=== PATIENT | female | born 1950 | race Caucasian/White ===

== ENCOUNTER 2016-10-29 17:37 | Inpatient (IN) | payer MEDICARE, OTHER ==
--- OUTSIDE RECORDS SUMMARY | 2016-10-29 17:40 | XMS | Clinical Summary ---
:1950 Author Organization [facility] Address [address] [place] [address] Phone Care Team Providers Name Role Phone , Primary Care Provider Unavailable Allergies Not on File Current Medications Not on file Active Problems Not on file Social History Tobacco Use Types Packs/Day Years Used Date Never Assessed Sex Assigned at Date Recorded Not on file Last Filed Vital Signs Not on file Plan of Treatment Not on file Results Not on filefrom Last 3 Months
[2016-10-29] MEDS ORDERED: Bisacodyl 10 MG SUPP PR PRN (18:27)
[2016-10-29] MEDS ORDERED: Insulin Regular 300 UNITS/3 ML VIAL SC PRN (18:27)
[2016-10-29] MEDS ORDERED: Fleet Enema 133 ML BOT PR PRN (18:27)
[2016-10-29] MEDS ORDERED: Dextrose 50% Abboject 50 ML SYRINGE SLOW IVP PRN (18:27)
[2016-10-29] MEDS ORDERED: Milk Of Magnesia 30 ML UDCUP PO PRN (18:27)
[2016-10-29] MEDS ORDERED: Dextrose 5% in Water 1,000 ML IV SCH (18:30)
[2016-10-29] MEDS ORDERED: Docusate 100 MG CAP PO SCH (21:00)
[2016-10-29] MEDS ORDERED: Clindamycin/D5W 900 MG in Premix Bag 1 BAG IVPB SCH (22:00)
[2016-10-29] MEDS ORDERED: diphenhydrAMINE HCl 50 MG/ML 1 ML VIAL IVP PRN (22:43)
[2016-10-29] MEDS ORDERED: Carvedilol 3.125 MG TAB PO SCH (22:45)
[2016-10-29] MEDS ORDERED: Zolpidem Tartrate 5 MG TAB PO SCH (22:45)
[2016-10-29] MEDS ORDERED: Pravastatin Sodium 20 MG TAB PO SCH (22:45)
[2016-10-29 23:36] VITALS: BMI 24.7
[2016-10-30] MEDS: Sodium Chloride 0.9% 1,000 ML IV SCH ×2 (01:04→20:28)
[2016-10-30 04:02] LABS: Bilirubin Negative (Negative); Blood, Urine Large (Negative); Glucose, Urine (Dipstick) Negative (Negative); Ketone, Urine Negative (Negative); Nitrite Negative (Negative); Protein, Urine (Dipstick) 300 mg/dL (Neg-Trace); Urobilinogen 0.2 mg/dL (0.2-1.0)
[2016-10-30 04:05] LABS: Bacteria/HPF 4+ HPF (None Seen); RBC/HPF GREATER THAN 50-TNTC HPF (0-3)
[2016-10-30 04:35] LABS: Hyaline Casts/LPF NONE SEEN LPF (0-3 Hyaline)
--- NOTE | 2016-10-30 04:38 | CON ---
DATE OF CONSULTATION: 10/29/2016 CHIEF COMPLAINT: Right hip pain. HISTORY OF PRESENT ILLNESS: Ms. Rodriguez is a 66-year-old female who was taking her great aunt to lunch today. She lost her balance near her car. She fell on the street on concrete. She had imme diate pain. She was unable to ambulate. She was taken to the Emergency Department by EMS. She was found to have a right femoral neck fracture. She was transferred for further orthopedic care. She has been in pain, but is currently resting comfortably. She has been admitted to the hospital now. She has received pain medications. She is improving. She denies other injuries. Of note, she wiggins d a distal femur fracture treated operatively in 11/2015. This healed without incident she reports. She did stay in a usp after her last injury. PAST MEDICAL HISTORY: Includes end-stage renal disease on dialysis, history of cardiac disease with recent ablation by cardiac catheterization, hypertension, hyperlipidemia, and history of tachycardi a. PAST SURGICAL HISTORY: Cardiac catheterization, previous right distal femur fracture, open reductio n and internal fixation. ALLERGIES: ATORVASTATIN, CALCIUM, CEFUROXIME, MEPERIDINE, NITROFURANTOIN, and SIMVASTATIN. REVIEW OF SYSTEMS: Positive for right hip pain, otherwise denies chest pain, shortness of breath, n auseous, vomiting, fever, chills and others on the review of systems. FAMILY MEDICAL HISTORY: Noncontributory. SOCIAL HISTORY: The patient denies tobacco, alcohol, or drug use. She lives in [place] with family . PHYSICAL EXAMINATION: VITAL SIGNS: Stable. The patient is afebrile and normotensive, 98% on room air. GENERAL: She is alert, lying supine in no apparent distress. RESPIRATORY: Breathing comfortably. HEENT: Normocephalic, atraumatic. ABDOMEN: Soft, nontender, and nondistended. MUSCULOSKELETAL: The patient's right hip demonstrates pain with motion. She is in a shortened and externally rotated posture. She has well healed lateral scar distally over the leg. There is some minor swelling. No ecchymosis. She is able to flex and extend the foot and ankle and has a palpabl e dorsalis pedis pulse. IMAGES: Current x-rays are pending. She does come with a report which demonstrates femoral neck fr acture. The patient has a history of distal femur fracture and does have a long lateral femoral natalia te in place. LABORATORY DATA: Laboratory studies are currently pending. IMPRESSION: Right femoral neck fracture, acute. PLAN: At this point, I think the patient would benefit from hemiarthroplasty of the hip. We will p barbara for removal of the patient's proximal screws in her femoral plate to allow access to the intrame dullary canal. This will allow us to perform hemiarthroplasty of the hip. She will be allowed to w eight bear early with the goal of early mobilization and prevention of complications of prolonged be d rest as well as to provide pain relief. The patient is aware of risks of surgery. She is at high risk given her heart disease and dialysis. She wants to proceed. She has an ureterostomy as well which puts her at a higher risk of infection. She will be n.p.o. at midnight. She will have approp riate preoperative antibiotics and pain control. She will have medical optimization prior to surger y.
[2016-10-30 05:30] LABS: #Basophils 0.1 thou/uL (0.0-0.2); #Eosinphils 0.2 thou/uL (0.0-0.7); #Lymphocytes 2.4 thou/uL (1.20-3.40); #Monocytes 0.7 thou/uL (0.11-0.59); #Neutrophils 4.6 thou/uL (1.40-6.50); %Basophils 0.7 % (0.0-1.0); %Eosinophils 2.8 % (0.0-10.0); %Lymphocytes 29.7 % (21.0-51.0); %Monocytes 8.9 % (0.0-10.0); Hematocrit 24.3 % (36.0-47.0); PTT 28.4 SEC (22.9-36.1); Prothrombin Time 13.5 SEC (12.0-14.7); Red Blood Cell (RBC) Count 2.42 mill/uL (4.20-5.40)
[2016-10-30 05:46] LABS: Anion Gap 21 mmol/L (10-20); BUN (Urea Nitrogen) 57 mg/dL (9.8-20.1); Calc. Creatinine Clearance 8 mL/min (70-130); Calcium 8.4 mg/dL (7.8-10.44); Carbon Dioxide 26 mmol/L (23-31); Chloride 94 mmol/L (98-107); Estimated GFR-MDRD 6; Phosphorus 6.2 mg/dL (2.3-4.7)
--- NOTE | 2016-10-30 05:54 | HP ---
ATTENDING PHYSICIAN: Dr. Courtney. CONSULTING PHYSICIAN: Dr. Herron for Orthopedics DATE OF ADMISSION: 10/29/2016 CHIEF COMPLAINT: Evaluation status post hip pain and fall. HISTORY OF PRESENT ILLNESS: This is a 66-year-old female who fell from standing on asphalt with obv ious deformity of the right hip, unable to ambulate. On arrival, EMS stated the leg was internally rotated and shortened . She was converted to [place] because the blood pressure was systolic 8 0-90 and unable to acquire vascular access. At [facility], the patient was noted to have a femoral neck fracture. CBC showed hemoglobin 10.4, hematocrit 32, and an EKG without any acute ischemic tone nges. She was then transferred here by request from the patient. She denied any dizziness, chest p ain or shortness of breath prior to the fall. PAST MEDICAL HISTORY: Includes breast cancer, vertigo, CAD, arrhythmia, end-stage renal disease, GE RD. She is on hemodialysis. PAST SURGICAL HISTORY: Left hand dialysis, right mastectomy, coronary artery bypass graft 2 vessels . PSYCHIATRIC HISTORY: Includes anxiety and depression. SOCIAL HISTORY: She denies any alcohol, drug or smoking history. PHYSICAL EXAMINATION: VITAL SIGNS: Currently, blood pressure 102/60, heart rate 114, respiratory rate of 18, temperature 98.6, 96% on room air. HEENT: Atraumatic, normocephalic. No acute distress. Pupils are 3 mm bilaterally equal, round, re act to light. ENT: No JVD, no masses, membranes are fine. CARDIOVASCULAR: S1, S2, regular rate and rhythm. RESPIRATORY: Clear bilaterally. ABDOMEN: Soft, nontender, nondistended. BACK: Unremarkable. EXTREMITIES: Upper extremities are unremarkable. Lower extremities has deformity to internal rotat ion and shortening of the right hip. NEUROLOGIC: GCS 15. LABORATORY DATA: Laboratory values are pending. RADIOLOGIC FINDINGS: Femoral neck fracture on the right. A chest x-ray is pending. ASSESSMENT AND PLAN: A 66-year-old female with status post fall with a right femoral neck fracture with multiple medical problems. We will obtain consult from Nephrology with Dr. Rucker to handle her d ialysis, also Dr. Herron for Orthopedics consultation for operative fixation, as well as optimize her medically with her pain regimen and restart home meds. The patient has been discussed with Dr. Courtney at the time of dictation, agrees with the above plan.
[2016-10-30] MEDS ORDERED: Fentanyl 100 MCG/2 ML VIAL SLOW IVP SCH (06:00)
--- NOTE | 2016-10-30 08:38 | RAD ---
CHEST ONE VIEW: History: Pre op. Comparison: 03-05-14, 09-26-16 FINDINGS: Cardiac silhouette is magnified by projection. Pulmonary vasculature is unremarkable. Mediastinum is midline with post-operative changes and aortic calcification. No lobar consolidation or pleural flu id are evident. Metallic clips overlie the right axilla and the left hilum. IMPRESSION: No active cardiopulmonary abnormalities are demonstrated. POS: DANTE
--- NOTE | 2016-10-30 08:43 | RAD ---
RIGHT HIP TWO VIEWS: History: 66-year-old female with right hip deformity and pain. FINDINGS: There is a severely displaced irregular fracture through the base of the femoral neck with foreshort ening and considerable varus deformity. There is some associated comminution in the intertrochanteri c region. There is a large metal plate and screw stabilizing the proximal femoral shaft. Diffuse bony deminera lization. IMPRESSION: Markedly displaced comminuted fracture involving the base of the femoral neck and intertrochanteric region with marked varus deformity and foreshortening. Severe bone demineralization. POS: JOY
[2016-10-30] MEDS ORDERED: Cinacalcet HCl 30 MG TAB PO SCH (09:00)
[2016-10-30] MEDS ORDERED: Escitalopram Oxalate 20 mg Tablet PO SCH (09:00)
[2016-10-30] MEDS ORDERED: Docusate 100 MG CAP PO SCH (09:00)
[2016-10-30] MEDS ORDERED: Aspirin 81 mg Enteric Coated Tablet PO SCH (09:00)
--- NOTE | 2016-10-30 09:01 | PRG ---
DATE OF SERVICE: 10/30/2016 SERVICE: Renal Medicine. SUBJECTIVE: Ms. Rodriguez is a 66-year-old white female with known history of ESRD - on maintenanc e hemodialysis and admitted for right hip fracture. I am currently dialyzing her without any hepari n. I am at her bedside supervising the dialysis. For now, being consulted for her maintenance hemodialysis. OBJECTIVE: VITAL SIGNS: Blood pressure 90/54, heart rate 97, respiratory rate 17, temperature 97.4, pulse ox 9 6%. GENERAL: Awake, alert, supine, comfortable, not in distress. SKIN: Adequate turgor. HEENT: Slightly pale conjunctivae, anicteric sclerae. NECK: No neck mass, no carotid bruits, no JVD. CHEST: No deformities. LUNGS: Clear breath sounds. No wheezing, no crackles. HEART: Normal sinus rhythm. No murmur, no gallops or rubs. ABDOMEN: Globular, soft, nontender, no masses. Positive for a urostomy bag. EXTREMITIES: No edema, no deformities. Limited range of motion of the right hip joint. NEUROLOGIC: Awake, oriented to 3 spheres. Moving all extremities. No tremors, no asterixis, no at axia. MEDICATIONS: Of 10/30/2016 was reviewed. LABORATORY DATA: Of 10/30/2016, white count 8, hemoglobin 8.0, hematocrit 24.3. Sodium 136, potass ium 4.7, chloride 94, carbon dioxide 26, BUN 57, creatinine 7.12, phosphorus is 6.2, calcium 8.4, ma gnesium 2.0. ASSESSMENT AND PLAN: 1. End-stage renal disease, stable. We will continue current hemodialysis regimen. No heparin to be used due to the planned hip surgery. 2. Right hip fracture - Surgery is following, patient will have a right hip surgery this afternoon. 3. Hyperphosphatemia, resume PhosLo 667 mg 1 tablet t.i.d. with meals. 4. Anemia. We will start Epogen 10,000 units subcutaneously every week. Overall, I agree with current management, recheck basic metabolic panel and CBC in a.m.
[2016-10-30] MEDS: Ondansetron ODT 4 MG TAB PO PRN (09:54)
[2016-10-30] MEDS: Morphine Sulfate 2 MG/ML SYRINGE SLOW IVP PRN ×2 (09:55→14:10)
[2016-10-30] MEDS: Docusate 100 MG CAP PO SCH (10:36)
[2016-10-30] MEDS: Carvedilol 3.125 MG TAB PO SCH ×2 (10:36→20:30)
[2016-10-30] MEDS: Cinacalcet HCl 30 MG TAB PO SCH (10:36)
[2016-10-30] MEDS: Escitalopram Oxalate 20 mg Tablet PO SCH (10:37)
[2016-10-30] MEDS: Midodrine HCl 5 MG TAB PO SCH (10:37)
[2016-10-30] MEDS: Epoetin (ESRD) 20,000 UNITS/ML SC SCH (10:37)
[2016-10-30] MEDS: Calcium Acetate 667 MG CAP PO SCH ×2 (13:12→20:27)
[2016-10-30] MEDS ORDERED: Clindamycin/D5W 900 mg/50 ml Premix Bag ONE (16:09)
[2016-10-30] MEDS ORDERED: Fentanyl 250 MCG/5 ML VIAL ONE (17:23)
[2016-10-30] MEDS ORDERED: Propofol 200 MG/20 ML VIAL ONE (17:27)
[2016-10-30] MEDS ORDERED: PHENYLEPHRINE-NS 100 MCG/ML 10 ML SYRINGE ONE (17:27)
[2016-10-30] MEDS ORDERED: ePHEDrine/0.9% NaCl/PF SYRINGE 50 mg/10 ml ONE (17:27)
[2016-10-30] MEDS ORDERED: Lidocaine 1% PF 5 ML VIAL ONE (17:27)
[2016-10-30] MEDS ORDERED: Albumin 5% 500 ML ONE (17:32)
[2016-10-30] MEDS ORDERED: EPINEPHrine 1 MG/10 ML Abboject SYRINGE ONE (17:34)
[2016-10-30] MEDS ORDERED: SUGAMMADEX SODIUM 500 MG/5 ML VIAL ONE (17:50)
[2016-10-30] MEDS ORDERED: Acetaminophen 500 MG TAB PO SCH (19:00)
[2016-10-30 19:40] LABS: #Eosinphils 0.1 thou/uL (0.0-0.7); #Lymphocytes 1.7 thou/uL (1.20-3.40); #Monocytes 0.6 thou/uL (0.11-0.59); #Neutrophils 4.2 thou/uL (1.40-6.50); %Basophils 0.6 % (0.0-1.0); %Eosinophils 1.8 % (0.0-10.0); %Lymphocytes 25.6 % (21.0-51.0); %Monocytes 8.4 % (0.0-10.0); Hematocrit 22.5 % (36.0-47.0); Mean Platelet Volume 7.7 fL (7.4-10.4); Red Blood Cell (RBC) Count 2.24 mill/uL (4.20-5.40); White Blood Cell (WBC) Count 6.6 thou/uL (4.8-10.8)
[2016-10-30 20:14] LABS: Anion Gap 17 mmol/L (10-20); BUN (Urea Nitrogen) 21 mg/dL (9.8-20.1); Calc. Creatinine Clearance 15 mL/min (70-130); Calcium 8.6 mg/dL (7.8-10.44); Carbon Dioxide 28 mmol/L (23-31); Chloride 100 mmol/L (98-107); Estimated GFR-MDRD 12; Magnesium 2.1 mg/dL (1.6-2.6); Phosphorus 4.6 mg/dL (2.3-4.7)
--- NOTE | 2016-10-30 20:32 | RAD ---
PORTABLE CHEST 10/30/16 PROVIDED CLINICAL HISTORY: Central line placement. FINDINGS: Comparison 10/30/16, 4:28 a.m. Cardiac and mediastinal silhouette is unchanged in appearance. Median sternotomy changes are again n oted. Left IJ central line has been placed, the tip of which projects over the expected location of the right atrium. Chronic obstructive changes are redemonstrated. No focal consolidation, pleural fl uid, or pneumothorax definitely apparent. IMPRESSION: Post central line placement without evidence for complication. POS: JOY
[2016-10-30] MEDS ORDERED: Pravastatin Sodium 20 MG TAB PO SCH ×2 (21:00)
[2016-10-30] MEDS: Simvastatin 5 MG TAB PO SCH (21:58)
[2016-10-30] MEDS: Fentanyl 100 MCG/2 ML VIAL SLOW IVP PRN (23:41)
[2016-10-30] MEDS: Clindamycin/D5W 900 MG in Premix Bag 1 BAG IVPB SCH (23:41)
[2016-10-30] MEDS: Norepinephrine 8 MG/250 ML BAG IVPB PRN (23:45)
[2016-10-31] MEDS: Zolpidem Tartrate 5 MG TAB PO SCH (02:24)
[2016-10-31 04:49] LABS: Anion Gap 16 mmol/L (10-20); BUN (Urea Nitrogen) 28 mg/dL (9.8-20.1); Calc. Creatinine Clearance 12 mL/min (70-130); Calcium 8.4 mg/dL (7.8-10.44); Carbon Dioxide 27 mmol/L (23-31); Chloride 101 mmol/L (98-107); Estimated GFR-MDRD 10; Magnesium 1.9 mg/dL (1.6-2.6); Phosphorus 5.3 mg/dL (2.3-4.7)
[2016-10-31 04:51] LABS: #Eosinphils 0.2 thou/uL (0.0-0.7); #Lymphocytes 2.3 thou/uL (1.20-3.40); #Monocytes 0.8 thou/uL (0.11-0.59); #Neutrophils 4.3 thou/uL (1.40-6.50); %Basophils 0.6 % (0.0-1.0); %Lymphocytes 29.3 % (21.0-51.0); %Monocytes 10.6 % (0.0-10.0); Hematocrit 20.3 % (36.0-47.0); Mean Platelet Volume 7.8 fL (7.4-10.4); White Blood Cell (WBC) Count 7.7 thou/uL (4.8-10.8)
[2016-10-31] MEDS: Sodium Chloride 0.9% 1,000 ML IV SCH (10:00)
[2016-10-31] MEDS: Docusate 100 MG CAP PO SCH (10:01)
[2016-10-31] MEDS: Clindamycin/D5W 900 MG in Premix Bag 1 BAG IVPB SCH (10:01)
[2016-10-31] MEDS: Calcium Acetate 667 MG CAP PO SCH ×3 (10:01→17:43)
[2016-10-31] MEDS: Cinacalcet HCl 30 MG TAB PO SCH (10:01)
[2016-10-31] MEDS: Escitalopram Oxalate 20 mg Tablet PO SCH (10:02)
[2016-10-31] MEDS: Fentanyl 100 MCG/2 ML VIAL SLOW IVP PRN ×3 (10:07→22:33)
--- NOTE | 2016-10-31 10:32 | PRG ---
DATE OF SERVICE: 10/31/2016 SUBJECTIVE: Ms. Rodriguez is a 66-year-old white female with ESRD and admitted for right hip fract ure. She was supposed to be scheduled yesterday for right hip surgery, but she became hypotensive. She is now placed at the ICU for further monitoring. She also was noted to be anemic and currently receiving blood transfusion. She has also been started on her regular weekly Epogen. The patient voices no new complaints. PHYSICAL EXAMINATION: VITAL SIGNS: Blood pressure is 96/44, heart rate 90, respiratory rate 20, temperature 99.2, pulse o x is 96%. GENERAL: Noted to be awake, supine, comfortable, not in distress. SKIN: Adequate turgor. HEENT: Pale conjunctivae, anicteric sclerae. NECK: No neck mass, no carotid bruits, no JVD. CHEST: No deformities. LUNGS: Clear breath sounds. No wheezing, no crackles. HEART: Normal sinus rhythm. No murmurs, gallops or rubs. ABDOMEN: Globular, soft, nontender. Positive for urostomy. EXTREMITIES: No edema. MEDICATIONS: 10/31/2016 - Reviewed. LABORATORY: 10/31/2016 - White count 7.7, hemoglobin 6.7, sodium 140, potassium 3.6, chloride 101, carbon dioxide 27, BUN 28, creatinine 4.46, glucose 125, calcium 8.4, phosphorus 5.3. Cortisol 28.6 . ASSESSMENT AND PLAN: 1. Hypotension. This may be a hemodynamically mediated renal dysfunction. The patient did receive dialysis and fluid removal was done. I will probably continue midodrine with this patient. Contin ue p.r.n. replacement of fluid. I agree to optimize hemodynamics. Currently receiving blood transf usion. 2. Anemia - currently receiving 1-2 units of packed RBC. Currently on weekly Epogen. 3. Right hip fracture for planned surgery in a.m. I would suggest we do the surgery first thing in the morning and we will work our dialysis schedule around the surgery. Overall, prognosis remains guarded.
--- NOTE | 2016-10-31 10:45 | PRG ---
DATE OF SERVICE: 10/31/2016 SUBJECTIVE: The patient is a 66-year-old woman who is status post fall with fracture of the right hip. Attempted trip to the operating room yesterday was aborted as the patient became hypotensive post-induction. Note that the patient underwent a preoperative dialysis with loss of over 2 liters of fluids. Overnight, the patient has remained hypotensive, currently on norepinephrine 7.5 mcg per minute. She is otherwise awake and alert. She reports adequate pain control. OBJECTIVE: VITAL SIGNS: This morning includes blood pressure 104/48, pulse is 110, respiration 23, temperature 99.2 degrees Fahrenheit, oxygen saturation is 98% on 2 L by nasal cannula oxygen. HEENT EXAMINATION: Reveals normocephalic and atraumatic. The pupils are equal , round, reactive to light and accommodation. HEART: Reveals regular rate with sinus tachycardia. No murmurs or gallops auscultated. LUNGS: Clear to auscultation bilaterally. Her breathing is regular and unlabored. ABDOMEN: Soft, nontender, nondistended. Bowel sounds in all four quadrants appear normoactive. Liver and spleen are nonpalpable below costal margins. NEUROLOGIC: Reveals no focal deficits present. EXTREMITIES: There are 2+ radial and pedal pulses bilaterally. No ankle edema is present. PERTINENT LABORATORY DATA: Today includes CBC with 7700 white blood cells, hemoglobin 6.7, hematocrit 20.3, and platelet count is 191,000. Metabolic profile; sodium 140, potassium 3.6, chloride is 101, bicarbonate 27, BUN 28, creatinine is 4.46, which is baseline. Magnesium is 1.9. IMPRESSION: 1. Post-injury day #1, status post ground level fall with right hip fracture. 2. Acute hemorrhagic shock. 3. Chronic Renal failure PLAN: 1. Patient will be transfused with packed red blood cells. 2. We will continue with gentle fluid resuscitation and wean the norepinephrine to half as the blood pressure tolerates. Once patient is hemodynamically stable, operative intervention could be reinstituted. Both findings and plan discussed with the patient who indicates understanding of the information given. I have answered all her questions. JOSE
[2016-10-31 12:08] LABS: Hematocrit 22.9 % (36.0-47.0)
[2016-10-31] MEDS ORDERED: Sodium Chloride 0.9% 500 ML IVPB SCH (12:45)
[2016-10-31] MEDS ORDERED: Albumin 5% 250 ML ONE (13:14)
[2016-10-31] MEDS: Ondansetron HCl/PF 4 MG/2 ML Vial IVP PRN (13:15)
[2016-10-31] MEDS ORDERED: Lidocaine 2% Viscous Solution 10 ML, Aluminum & Magnesium Hydroxide 30 ML SSW PRN ×2 (17:12)
[2016-10-31] MEDS ORDERED: Lidocaine 2% Viscous Solution 10 ML, Aluminum & Magnesium Hydroxide 30 ML SSW SCH ×2 (17:15)
[2016-10-31] MEDS: Simvastatin 5 MG TAB PO SCH (21:00)
[2016-10-31] MEDS: Ondansetron ODT 4 MG TAB PO PRN (21:00)
[2016-11-01] MEDS: Zolpidem Tartrate 5 MG TAB PO SCH ×2 (00:33→21:50)
[2016-11-01] MEDS: Sodium Chloride 0.9% 1,000 ML IV SCH ×2 (00:36→12:37)
[2016-11-01] MEDS: Fentanyl 100 MCG/2 ML VIAL SLOW IVP PRN ×2 (02:30→14:25)
[2016-11-01 05:04] LABS: #Basophils 0.1 thou/uL (0.0-0.2); #Eosinphils 0.4 thou/uL (0.0-0.7); #Lymphocytes 1.5 thou/uL (1.20-3.40); #Monocytes 0.6 thou/uL (0.11-0.59); #Neutrophils 5.8 thou/uL (1.40-6.50); %Basophils 0.7 % (0.0-1.0); %Eosinophils 4.6 % (0.0-10.0); %Monocytes 7.4 % (0.0-10.0); Hematocrit 26.6 % (36.0-47.0); Mean Platelet Volume 8.2 fL (7.4-10.4); Red Blood Cell (RBC) Count 2.69 mill/uL (4.20-5.40); White Blood Cell (WBC) Count 8.3 thou/uL (4.8-10.8)
[2016-11-01 05:23] LABS: Anion Gap 16 mmol/L (10-20); BUN (Urea Nitrogen) 36 mg/dL (9.8-20.1); Calc. Creatinine Clearance 10 mL/min (70-130); Calcium 8.6 mg/dL (7.8-10.44); Carbon Dioxide 24 mmol/L (23-31); Chloride 101 mmol/L (98-107); Estimated GFR-MDRD 8; Magnesium 1.7 mg/dL (1.6-2.6); Phosphorus 5.5 mg/dL (2.3-4.7)
[2016-11-01] MEDS: Ondansetron HCl/PF 4 MG/2 ML Vial IVP PRN (07:52)
[2016-11-01] MEDS: Calcium Acetate 667 MG CAP PO SCH ×3 (08:15→18:08)
[2016-11-01] MEDS ORDERED: Neomycin-Polymyxin 1 ML AMP ONE ×2 (08:56→08:57)
[2016-11-01] MEDS: Docusate 100 MG CAP PO SCH (09:23)
[2016-11-01] MEDS: Escitalopram Oxalate 20 mg Tablet PO SCH (09:23)
[2016-11-01] MEDS: Midodrine HCl 5 MG TAB PO SCH (09:23)
[2016-11-01] MEDS: Cinacalcet HCl 30 MG TAB PO SCH (09:23)
[2016-11-01] MEDS ORDERED: Norepinephrine 8 MG/0.9% NS 0 ML ONE (09:32)
[2016-11-01] MEDS: Pantoprazole 40 MG VIAL IVP SCH (09:39)
[2016-11-01] MEDS ORDERED: Pantoprazole 40 MG VIAL IVP SCH (09:45)
[2016-11-01] MEDS ORDERED: Midazolam HCl 2 mg/2 ml Vial ONE ×2 (09:53→11:02)
[2016-11-01] MEDS ORDERED: PHENYLEPHRINE-NS 100 MCG/ML 10 ML SYRINGE ONE (10:20)
[2016-11-01] MEDS ORDERED: Clindamycin/D5W 900 mg/50 ml Premix Bag ONE (11:30)
[2016-11-01] MEDS ORDERED: Promethazine HCl 25 MG/ML VIAL SLOW IVP PRN (11:58)
[2016-11-01] MEDS ORDERED: Ondansetron HCl/PF 4 MG/2 ML Vial IVP PRN (11:58)
[2016-11-01] MEDS ORDERED: Promethazine HCl 25 MG/ML VIAL IM PRN (11:58)
[2016-11-01] MEDS: Clindamycin/D5W 900 MG in Premix Bag 1 BAG IVPB SCH ×2 (14:00→23:04)
--- NOTE | 2016-11-01 14:35 | PRG ---
DATE OF SERVICE: 11/01/2016 SUBJECTIVE: Ms. Rodriguez is a 66-year-old female hospital day #3, status post fall with right fem oral neck fracture. Patient was taken to the operating room on 10/30/2016, but procedure was aborte d because of hypotension. Patient was given fluids and started on pressors. She was found to be an emic and transfused yesterday. This morning, she has stabilized with systolic blood pressures withi n normal limits and pressors have been weaned off as of 329 this a.m. She has no complaints this a .m. Orthopedic Surgery plans to take her to the operating room later today for operative interventi on of her hip fracture. OBJECTIVE: VITAL SIGNS: Include temperature 98.0, pulse 101, respiration 20, O2 sat 95% on room air, blood pre ssure of 114/50. GENERAL: Well-developed elderly appearing female in no acute distress, resting in bed. PULMONARY: Normal work of breathing. Symmetric rise. CARDIOVASCULAR: Regular rate and rhythm. ABDOMEN: Soft, nontender, nondistended. MUSCULOSKELETAL: Moves all extremities x4 with limited range of motion of the right extremity secon katarina to pain. NEUROLOGIC: No focal deficit noted. LABORATORY FINDINGS: WBC 8.3, hemoglobin 9.2, hematocrit 26.6, platelet count 173. Sodium 137, pot assium 3.8, chloride 101, carbon dioxide 24, BUN 36, creatinine 5.58, glucose 102, phosphorus 5.5, m agnesium 1.7. ASSESSMENT AND PLAN: This is a 66-year-old female status post fall, right femoral neck fracture. P atient to undergo operative intervention later today. She has end-stage renal disease on hemodialys is and there are plans for hemodialysis after she returns from the OR. Patient should return to ICU for closer hemodynamic monitoring postoperatively. We will follow up postoperatively. We will nee d postop pain management, PT, OT and rehab or fpc for eventual disposition. Patient was seen and evaluated by Dr. Jefferson.
--- NOTE | 2016-11-01 14:40 | OP ---
DATE OF OPERATION: 11/01/2016 OPERATION: 1. Right femur hardware removal. 2. Right hip bipolar hemiarthroplasty. PREOPERATIVE DIAGNOSIS: Right proximal femur fracture. POSTOPERATIVE DIAGNOSIS: Right proximal femur fracture. COMPLICATIONS: None. ESTIMATED BLOOD LOSS: 350 mL. SURGEON: Chepe Herron M.D. CHEESE PACKER: Dontrell Lainez PA-C INDICATIONS: Ms. Rodriguez is a 66-year-old female who has fallen. She fractured her femoral neck and intertrochanteric femur. She was indicated for hemiarthroplasty of the hip to restore function and relief pain. Risks have been reviewed in detail. She has elected to proceed with the operatio n. DESCRIPTION OF PROCEDURE: Ms. Rodriguez was identified in the preoperative holding area. Her shaun ect extremity was marked. She was carried to the operating room. She was positioned supine. Gener al anesthesia was induced. A multidisciplinary timeout was performed. The right lower extremity wa s prepped and draped in sterile fashion. We began the procedure with a posterior approach to the hip. We dissected down to the subcutaneous tissues to the fascia which was incised. We then exposed the underlying lateral femur. We exposed the patient's previously placed distal femoral plate. The most proximal 3 screws were removed from the plate allowing access to the intramedullary canal for hemiarthroplasty. At this point, we then examined the proximal femur. We performed a capsulotomy and exposed the femoral neck fracture. The femoral head was removed. We cleared the acetabulum of tissues. The patient had a comminuted and severe femoral neck fracture with extension down to the lesser trochanter. The greater trochanter w as fractured from the shaft. At this point, we exposed the shaft of the femur. We reamed this and then placed a trial broach. Our broach gave good stability and range of motion with a +12 trial. A t this point, we again thoroughly irrigated. We then cemented our stem which was a size [address] We held this until fully hardened. At this point, we placed our femoral head and reduced the h ip. At this point, we then placed two cables around fractured greater trochanter. These were place d around the medial aspect of the stem stabilizing the greater trochanter bone. Finally, we thoroug hly irrigated. We then began closure. The capsule and short external rotators were repaired with a #5 Ethibond suture through drill holes. We then used #2 Vicryl suture, 2-0 Vicryl suture and stapl es for the skin. A sterile dressing was applied. IMPLANTS: DePuy Harrison size 4 cemented stem with a size 50 bipolar shell, and a +12 femoral head.
[2016-11-01] MEDS: traMADol HCl 50 MG TAB PO PRN ×2 (16:25→23:01)
[2016-11-01] MEDS: Acetaminophen 500 MG TAB PO SCH ×2 (18:07→23:04)
--- NOTE | 2016-11-01 18:29 | RAD ---
AP PELVIS ONE VIEW 11/01/16 HISTORY: 66-year-old female status post right hemiarthroplasty. Recent total right hip replacement changes. Bone demineralization. Left hip joint arthrosis. IMPRESSION: Recent total right hip arthroplasty. Bone demineralization. POS: JOY
--- NOTE | 2016-11-01 18:30 | RAD ---
RIGHT HIP ONE VIEW 11/01/16 HISTORY: 66-year-old female recent status post right hemiarthroplasty. Recent right total hip replacement changes. Large metal plate and screws stabilizing the femoral marlon physis. Surgical clips in place. IMPRESSION: Recent post right hip replacement without dislocation or evidence for new sandra or periprosthetic fra cture. POS: JOY
--- NOTE | 2016-11-01 19:28 | PRG ---
DATE OF SERVICE: 11/01/2016 SUBJECTIVE: Ms. Rodriguez is a 66-year-old white female with known history of ESRD and currently b eing followed for his maintenance hemodialysis by the Renal Service. I am currently at the bedside dialyzing the patient, we are not using any heparin due to the recent surgery. Please note this pat iejorge alberto had fallen and had a right proximal femoral fracture. She underwent right femoral hardware rem oval and with procedure of right hip bipolar hemiarthroplasty. She is doing well. She denies any n ew complaints. She denies any chest pain, shortness of breath. OBJECTIVE: VITAL SIGNS: Blood pressure is 115/40, heart rate 115, respiratory rate 26, pulse ox 94%. GENERAL: Awake, alert, comfortable, not in distress. SKIN: Adequate turgor. HEENT: She has a pinkish conjuctivae. Anicteric sclerae. NECK: No neck mass, no carotid bruits, no JVD. CHEST: No deformities. LUNGS: Clear breath sounds, no wheezing, no crackles. HEART: Normal sinus rhythm. No murmurs, no gallops, or rubs. ABDOMEN: Globular, soft, nontender, no masses. EXTREMITIES: No edema or deformities. Limited range of motion of the right lower extremity. MEDICATIONS: Medications of 11/01/2016 was reviewed. LABORATORY DATA: Laboratories of 11/01/2016, white count 8.2, hemoglobin 9.2. Sodium 137, potassiu m 3.8, chloride 101, carbon dioxide 24, BUN 36, creatinine 5.58, phosphorus is 5.5, calcium is 8.6. ASSESSMENT AND PLAN: 1. End-stage renal disease - stable. Continue heparin free hemodialysis. Fluid removal only as to lerated by the patient. 2. Anemia - patient on p.r.n. blood transfusion. She is also currently on a weekly Epogen 10,000 u nits subcutaneous. 3. Hyperphosphatemia - patient has been started on PhosLo 667 mg 2 tabs t.i.d. with meals. 4. Patient is also status post right proximal femoral fracture and underwent a right hip bipolar he miarthroplasty.
[2016-11-01] MEDS: Simvastatin 5 MG TAB PO SCH (21:50)
[2016-11-02] MEDS: Norepinephrine 8 MG/250 ML BAG IVPB PRN (00:14)
[2016-11-02 03:34] LABS: #Eosinphils 0.5 thou/uL (0.0-0.7); #Lymphocytes 1.6 thou/uL (1.20-3.40); #Monocytes 0.6 thou/uL (0.11-0.59); %Basophils 0.5 % (0.0-1.0); %Eosinophils 6.2 % (0.0-10.0); %Lymphocytes 18.3 % (21.0-51.0); %Monocytes 6.8 % (0.0-10.0); Mean Platelet Volume 8.2 fL (7.4-10.4); Red Blood Cell (RBC) Count 2.79 mill/uL (4.20-5.40); White Blood Cell (WBC) Count 8.8 thou/uL (4.8-10.8)
[2016-11-02 03:58] LABS: Anion Gap 9 mmol/L (10-20); BUN (Urea Nitrogen) 20 mg/dL (9.8-20.1); Calc. Creatinine Clearance 16 mL/min (70-130); Calcium 8.3 mg/dL (7.8-10.44); Carbon Dioxide 30 mmol/L (23-31); Chloride 101 mmol/L (98-107); Estimated GFR-MDRD 13; Magnesium 1.6 mg/dL (1.6-2.6); Phosphorus 3.4 mg/dL (2.3-4.7)
[2016-11-02] MEDS: Sodium Chloride 0.9% 1,000 ML IV SCH ×2 (04:30→05:45)
[2016-11-02] MEDS: Acetaminophen 500 MG TAB PO SCH ×4 (05:43→23:48)
[2016-11-02] MEDS ORDERED: Albumin 25% 25 GM/100 ML BOT IVPB SCH (08:31)
[2016-11-02] MEDS: Calcium Acetate 667 MG CAP PO SCH ×3 (09:55→17:38)
[2016-11-02] MEDS: Pantoprazole 40 MG VIAL IVP SCH (09:55)
[2016-11-02] MEDS: Cinacalcet HCl 30 MG TAB PO SCH (09:55)
[2016-11-02] MEDS: Docusate 100 MG CAP PO SCH (09:55)
[2016-11-02] MEDS: Escitalopram Oxalate 20 mg Tablet PO SCH (09:59)
[2016-11-02] MEDS: traMADol HCl 50 MG TAB PO PRN ×2 (09:59→16:03)
[2016-11-02] MEDS ORDERED: Midodrine HCl 5 MG TAB PO SCH (10:45)
[2016-11-02] MEDS ORDERED: Sterile Water 10 ML ONE (11:38)
--- NOTE | 2016-11-02 18:28 | PRG ---
DATE OF SERVICE: 11/02/2016 SUBJECTIVE: Ms. Rodriguez is a 66-year-old female hospital day #4 status post fall with right femo ral neck fracture. She is postop day #1 status post right hip bipolar hemiarthroplasty with Dr. Delio butt. Postoperatively, the patient did well initially and her blood pressure was maintained. She underwent HD with removal of 1.5 liters yesterday afternoon. Overnight, the patient became hypoten sive with a systolic blood pressure in the 70s. She was restarted on pressors. Her current dose of levo is 5 mcg. She localizes no complaint. She denies pain this a.m. OBJECTIVE: VITAL SIGNS: Heart rate 99, blood pressure 93/34, map of 60, respiratory rate 18, O2 saturation 98% on room air. GENERAL: Well-developed, well-nourished female in no acute distress, resting in bed. PULMONARY: Normal work of breathing, symmetrical rise. CARDIOVASCULAR: Regular rate and rhythm, no obvious murmurs, rubs or gallops. GASTROINTESTINAL: Abdomen is soft, nontender, nondistended. MUSCULOSKELETAL: Moves all extremities x4. NEUROLOGIC: No focal deficit noted. LABORATORY FINDINGS: WBC 8.8, hemoglobin 9.1, hematocrit 27.0, platelet count 196. Sodium 137, pot assium 3.2, chloride 101, carbon dioxide 30, BUN 20, creatinine 3.44, glucose 105, phosphorus 2.4, m agnesium 1.6. No new radiographic findings. ASSESSMENT AND PLAN: Status post fall with right proximal femur fracture. She is postoperative day #1. Follow up urine output. Wean levo as tolerated. Add one dose of midodrine today. Patient di d not receive her normal midodrine dose prior to HD yesterday. 25 grams 25% albumin. Continue pain meds as ordered. PT, OT and pulmonary toilet. A.m. labs. Patient discussed with trauma attending .
[2016-11-02] MEDS: Zolpidem Tartrate 5 MG TAB PO SCH (21:32)
[2016-11-02] MEDS: Simvastatin 5 MG TAB PO SCH (21:33)
[2016-11-03] MEDS: Acetaminophen 500 MG TAB PO SCH ×6 (00:49→23:18)
[2016-11-03 06:03] LABS: Anion Gap 15 mmol/L (10-20); BUN (Urea Nitrogen) 36 mg/dL (9.8-20.1); Calc. Creatinine Clearance 12 mL/min (70-130); Calcium 8.1 mg/dL (7.8-10.44); Carbon Dioxide 25 mmol/L (23-31); Chloride 99 mmol/L (98-107); Estimated GFR-MDRD 9; Magnesium 1.8 mg/dL (1.6-2.6)
[2016-11-03] MEDS: Cinacalcet HCl 30 MG TAB PO SCH (08:32)
[2016-11-03] MEDS: Calcium Acetate 667 MG CAP PO SCH ×3 (08:32→17:23)
[2016-11-03] MEDS: Docusate 100 MG CAP PO SCH (08:32)
[2016-11-03] MEDS: Pantoprazole 40 MG VIAL IVP SCH (08:37)
[2016-11-03] MEDS: Escitalopram Oxalate 20 mg Tablet PO SCH (08:37)
--- NOTE | 2016-11-03 11:15 | PRG ---
DATE OF SERVICE: 11/03/2016 SUBJECTIVE: No new complaints today. Patient is currently being ambulated. Please note, patient is status post right hip bipolar hemiarthroplasty with right femoral hardware r emoval. Denies any chest pain or shortness of breath. PHYSICAL EXAMINATION: VITAL SIGNS: Blood pressure is 86/36, heart rate 87, respiratory rate 18, pulse ox 98%. GENERAL: Awake, alert, sitting comfortable, not in overt distress. SKIN: Adequate turgor. HEENT: Slightly pale conjunctivae, anicteric sclerae. NECK: No neck mass, no carotid bruits, no JVD. CHEST: No deformities. LUNGS: Clear breath sounds. No wheezing, no crackles. HEART: Normal sinus rhythm. No murmur, no gallops or rubs. ABDOMEN: Globular, soft, nontender, no masses. EXTREMITIES: No edema, no deformities. MEDICATIONS: Of 11/03/2016 reviewed. LABORATORY: of 11/02/2016, hemoglobin 9.1. On 11/03/2016, sodium 135, potassium 3.7, chloride 99, carbon dioxide 25, BUN 36, creatinine 4.72, glucose 83, phosphorus 4.0, magnesium 1.8. ASSESSMENT AND PLAN: 1. Chronic hypotension. Continue midodrine 10 mg t.i.d. on Friday, Friday, Friday during her di alysis day. Continue supportive care. 2. Anemia -- continue weekly Epogen. Currently on 10,000 units subcutaneously every week. 3. Status post right proximal femoral fracture -- doing well. The patient underwent a right hip bi polar hemiarthroplasty. Surgery is following. 4. End-stage renal disease, stable. Will be continuing current Friday, Friday, Friday hemodialy sis. Minimal fluid removal with this patient due to her low blood pressure. Continue supportive ca re. Recheck base met and CBC in a.m.
--- NOTE | 2016-11-03 12:23 | PRG ---
DATE OF SERVICE: 11/03/2016 SUBJECTIVE: Clarissa Rodriguez is a 66-year-old female hospital day #5 status post fall with right fe moral neck fracture. She is postop day #2 status post right hip bipolar hemiarthroplasty with Dr. Kristopher samaniego. Overnight, the patient continued to improve. She was weaned off of her Levophed. This a .m. her systolic blood pressures in the 120s. She vocalizes no complaint of pain this a.m., is eage r to work with physical therapy. OBJECTIVE: VITAL SIGNS: Heart rate 95, blood pressure 116/44, O2 sat 98% on room air, respiratory rate of 18. GENERAL: Well-developed, well-nourished female in no acute distress, resting in bed. PULMONARY: Normal work of breathing. Symmetric rise. CARDIOVASCULAR: Regular rate and rhythm, no obvious murmurs, rubs or gallops. GASTROINTESTINAL: Soft, nontender, nondistended. MUSCULOSKELETAL: Moves all extremities x4. NEUROLOGIC: No focal deficit noted. LABORATORY DATA: Sodium 137, potassium 3.7, chloride 99, carbon dioxide 25, BUN 36, creatinine 4.72 . Phosphorus 4.0, magnesium 1.8. ASSESSMENT AND PLAN: Status post fall with right proximal femur fracture, postoperative day #2. I f she remains off pressors, she may be transferred to the floor later this afternoon. Follow up Nep hrology recommendations. Continue pain meds as ordered. Physical therapy and occupational therapy and pulmonary toilet. A.m. labs. Discussed with trauma attending.
[2016-11-03] MEDS: traMADol HCl 50 MG TAB PO PRN (14:30)
[2016-11-03] MEDS: Zolpidem Tartrate 5 MG TAB PO SCH (20:25)
[2016-11-03] MEDS: Simvastatin 5 MG TAB PO SCH (20:25)
[2016-11-03] MEDS: Senokot S 8.6-50 MG TAB PO SCH (20:25)
[2016-11-04] MEDS: Acetaminophen 500 MG TAB PO SCH ×3 (05:17→18:12)
[2016-11-04] MEDS: traMADol HCl 50 MG TAB PO PRN ×2 (05:31→14:07)
[2016-11-04 05:53] LABS: #Basophils 0.1 thou/uL (0.0-0.2); #Eosinphils 0.9 thou/uL (0.0-0.7); #Lymphocytes 1.7 thou/uL (1.20-3.40); #Monocytes 0.5 thou/uL (0.11-0.59); #Neutrophils 4.2 thou/uL (1.40-6.50); %Basophils 0.8 % (0.0-1.0); %Eosinophils 12.1 % (0.0-10.0); %Lymphocytes 23.7 % (21.0-51.0); %Monocytes 6.1 % (0.0-10.0); Hematocrit 23.2 % (36.0-47.0); Mean Platelet Volume 8.2 fL (7.4-10.4); Red Blood Cell (RBC) Count 2.36 mill/uL (4.20-5.40); White Blood Cell (WBC) Count 7.3 thou/uL (4.8-10.8)
[2016-11-04 05:58] LABS: Anion Gap 15 mmol/L (10-20); BUN (Urea Nitrogen) 52 mg/dL (9.8-20.1); Calc. Creatinine Clearance 10 mL/min (70-130); Carbon Dioxide 23 mmol/L (23-31); Chloride 97 mmol/L (98-107); Estimated GFR-MDRD 7
[2016-11-04] MEDS: Ferrous Sulfate 325 MG TAB PO SCH ×2 (08:45→18:12)
[2016-11-04] MEDS: Ascorbic Acid 500 mg Chewable Tablet PO SCH ×2 (08:45→18:13)
[2016-11-04] MEDS: Calcium Acetate 667 MG CAP PO SCH ×3 (08:45→18:12)
[2016-11-04] MEDS: Senokot S 8.6-50 MG TAB PO SCH ×2 (08:46→20:13)
--- NOTE | 2016-11-04 09:30 | PRG ---
DATE OF SERVICE: 11/04/2016 SUBJECTIVE: Ms. Rodriguez is a 66-year-old white female with ESRD being followed up by the [facility] for her maintenance hemodialysis. She is currently undergoing hemodialysis. I am at the bed side supervising her dialysis. She has no new complaints. She denies any chest pain or shortness o f breath. The patient was recently status post right hip bipolar hemiarthroplasty with right femora l hardware removal. OBJECTIVE: VITAL SIGNS: Blood pressure is 128/60, heart rate 88, respiratory rate 18, temperature 97.8, pulse ox 97%. GENERAL: Noted to be awake, alert, comfortable, not in distress. SKIN: Adequate turgor. HEENT: Pinkish conjunctivae, anicteric sclerae. NECK: No neck mass, no carotid bruits, no JVD. CHEST: No deformities. LUNGS: Clear breath sounds. HEART: Normal sinus rhythm. No murmur, no gallops, no rubs. ABDOMEN: Globular, soft, nontender, no masses. EXTREMITIES: No edema. MEDICATIONS: 11/04/2016 - Reviewed. LABORATORY: 11/04/2016 - White count 7.3, hemoglobin 7.6, hematocrit 23.2, sodium 131, potassium 2. 9, chloride 97, carbon dioxide 23, BUN 52, creatinine 5.82, calcium is 8.0. ASSESSMENT AND PLAN: 1. End-stage renal disease, stable. Continue Friday, Friday, Friday hemodialysis. No heparin u se. Fluid removal only as tolerated. Attempting 1 liter fluid removal. 2. Chronic hypotension - on midodrine Friday, Friday, and Friday. 3. Anemia. Continue Epogen 10,000 units subcu every week. 4. Hyperphosphatemia on PhosLo 667 mg 2 tablets t.i.d. with meals. Recheck basic met and CBC in a.m.
[2016-11-04] MEDS: Pantoprazole 40 MG VIAL IVP SCH (12:54)
[2016-11-04] MEDS: Escitalopram Oxalate 20 mg Tablet PO SCH (12:54)
[2016-11-04] MEDS: Cinacalcet HCl 30 MG TAB PO SCH (12:54)
[2016-11-04] MEDS: Midodrine HCl 5 MG TAB PO SCH (12:59)
--- NOTE | 2016-11-04 14:16 | PRG-2 ---
DATE OF SERVICE: 11/04/2016 LOCATION: She is in [facility]. SUBJECTIVE: The patient is a 66-year-old female status post fall with right femoral neck fracture, postop day #3 from right hip hemiarthroplasty. The patient had no acute events overnight. The jazzy ent denies pain this morning. The patient endorses having an appetite and tolerating p.o. The jazzy ent endorses having a bowel movement. The patient had just returned from dialysis this morning. Th e patient stated this morning that she is from [place], but does not want to be discharged to [facility] rehab or retirement facility. She had a bad experience there. If possible, she would like t o go to rehab or retirement here in [facility]. OBJECTIVE: VITAL SIGNS: Temperature 97.7 degrees Fahrenheit, pulse 103, respiratory rate 18, O2 saturation 98% on room air and blood pressure 148/58. GENERAL: No acute distress, alert and oriented x3. HEENT: Normocephalic and atraumatic. RESPIRATORY: Clear to auscultation bilaterally. No wheezing, rhonchi or rales. CARDIOVASCULAR: Regular rate and rhythm. Normal S1 and S2. No murmurs, rubs or gallops appreciate d. GASTROINTESTINAL: Soft, nondistended and nontender. Hyperactive bowel sounds. MUSCULOSKELETAL: Pain with movement of right hip. NEUROLOGIC: No focal deficit noted. LABORATORY DATA: CBC: White blood cell count 7.3, hemoglobin 7.6, hematocrit 23.3 and platelets 20 9. Chemistry: Sodium 131, potassium 3.9, chloride 97, bicarbonate 23, BUN 52, creatinine 5.8 and gluco se 81. IMAGING DATA: No new imaging. ASSESSMENT: This is a 66-year-old female status post right hip hemiarthroplasty secondary to right femoral neck fracture, postop day #3. The patient has end-stage renal disease, on hemodialysis. PLAN: The patient was transferred to the floor after being weaned off pressors. We will continue t o follow Nephrology recommendations. We will continue patient's hemodialysis per Nephrology recomme ndations. We will continue pain medication as ordered as patient's pain is adequately controlled. We will continue physical therapy and occupational therapy and pulmonary toilet. We will continue t o monitor the patient's labs every morning. This patient was seen by Dr. Steve Jefferson at bedside a nd he agrees with the above assessment and plan.
[2016-11-04] MEDS: Simvastatin 5 MG TAB PO SCH (20:12)
[2016-11-04] MEDS: Zolpidem Tartrate 5 MG TAB PO SCH (20:13)
[2016-11-04] MEDS: Heparin 5,000 UNITS/ML VIAL SC SCH (20:15)
[2016-11-05] MEDS: Acetaminophen 500 MG TAB PO SCH ×4 (00:07→17:27)
[2016-11-05 06:09] LABS: #Basophils 0.1 thou/uL (0.0-0.2); #Eosinphils 0.9 thou/uL (0.0-0.7); #Lymphocytes 1.7 thou/uL (1.20-3.40); #Monocytes 0.5 thou/uL (0.11-0.59); #Neutrophils 4.1 thou/uL (1.40-6.50); %Basophils 0.8 % (0.0-1.0); %Eosinophils 12.1 % (0.0-10.0); %Lymphocytes 23.5 % (21.0-51.0); %Monocytes 6.3 % (0.0-10.0); Hematocrit 24.6 % (36.0-47.0); Red Blood Cell (RBC) Count 2.48 mill/uL (4.20-5.40); White Blood Cell (WBC) Count 7.2 thou/uL (4.8-10.8)
[2016-11-05 06:41] LABS: Anion Gap 15 mmol/L (10-20); BUN (Urea Nitrogen) 33 mg/dL (9.8-20.1); Calc. Creatinine Clearance 14 mL/min (70-130); Calcium 8.4 mg/dL (7.8-10.44); Carbon Dioxide 28 mmol/L (23-31); Chloride 100 mmol/L (98-107); Estimated GFR-MDRD 11; Magnesium 1.9 mg/dL (1.6-2.6); Phosphorus 2.9 mg/dL (2.3-4.7)
[2016-11-05] MEDS: Calcium Acetate 667 MG CAP PO SCH ×3 (08:20→17:27)
[2016-11-05] MEDS: Pantoprazole 40 MG VIAL IVP SCH (08:20)
[2016-11-05] MEDS: Escitalopram Oxalate 20 mg Tablet PO SCH (08:20)
[2016-11-05] MEDS: Ascorbic Acid 500 mg Chewable Tablet PO SCH ×2 (08:20→17:27)
[2016-11-05] MEDS: Senokot S 8.6-50 MG TAB PO SCH ×2 (08:20→20:02)
[2016-11-05] MEDS: Cinacalcet HCl 30 MG TAB PO SCH (08:20)
[2016-11-05] MEDS: Heparin 5,000 UNITS/ML VIAL SC SCH ×3 (08:20→20:02)
[2016-11-05] MEDS: Ferrous Sulfate 325 MG TAB PO SCH ×2 (08:20→17:27)
[2016-11-05] MEDS: traMADol HCl 50 MG TAB PO PRN ×2 (09:05→15:33)
--- NOTE | 2016-11-05 18:04 | PRG ---
DATE OF SERVICE: 11/05/2016 SUBJECTIVE: The patient is postop day #4 from a right hip hemiarthroplasty, status post fall. The patient denies any issues this morning. She states that her pain is controlled. She is having ashlyn l movements and she is tolerating a diet. The patient has worked with physical and occupational [facility] and is currently awaiting placement. OBJECTIVE: VITAL SIGNS: Temperature is 97.8, heart rate 93, blood pressure 141/57, respirations 16, oxygen sat uration 96% on room air. GENERAL: The patient is in no acute distress, alert and oriented x3. HEENT: Normocephalic and atraumatic. RESPIRATORY: Clear to auscultation bilaterally. CARDIOVASCULAR: Regular rate and rhythm. ABDOMEN: Soft, flat, nontender with active bowel sounds. EXTREMITIES: Neurovascularly intact x4. Postop dressing is clean, dry, and intact. LABORATORY FINDINGS: White blood cell count 7.2, hemoglobin 7.9, hematocrit 24.6, platelets 266. S odium 139, potassium 3.5, chloride 100, CO2 28, BUN 33, creatinine 3.99, glucose 88, magnesium 1.9, phosphorus 2.9. No radiographs today. ASSESSMENT AND PLAN: Status post fall and subsequent right hip hemiarthroplasty. PLAN: Will be to continue physical and occupational therapy and await bed availability at [facility]. Patient is due for dialysis tomorrow per her normal schedule and will not be able to be howell sferred on those days normally. If the patient is not transferred today, we will expect for her to be transferred .
[2016-11-05] MEDS: Zolpidem Tartrate 5 MG TAB PO SCH (20:02)
[2016-11-05] MEDS: Simvastatin 5 MG TAB PO SCH (20:02)
[2016-11-06] MEDS: Acetaminophen 500 MG TAB PO SCH ×4 (00:07→17:43)
[2016-11-06] MEDS: Ondansetron ODT 4 MG TAB PO PRN (08:19)
[2016-11-06] MEDS: Calcium Acetate 667 MG CAP PO SCH ×3 (08:35→17:43)
[2016-11-06] MEDS: Ferrous Sulfate 325 MG TAB PO SCH ×2 (08:35→17:43)
[2016-11-06] MEDS: Ascorbic Acid 500 mg Chewable Tablet PO SCH ×2 (08:35→17:43)
[2016-11-06] MEDS: Heparin 5,000 UNITS/ML VIAL SC SCH ×2 (08:36→15:50)
[2016-11-06] MEDS: Senokot S 8.6-50 MG TAB PO SCH (08:36)
--- NOTE | 2016-11-06 08:51 | PRG ---
DATE OF SERVICE: 11/06/2016 SUBJECTIVE: Ms. Rodriguez is a 66-year-old white female with end-stage renal disease - currently o n maintenance hemodialysis and be followed by the Renal Service. She was initially admitted for a f all with subsequent left hip fracture. She has undergone right hip hemiarthroplasty. Doing well ov [facility]. I am at the bedside supervising her dialysis. No new complaints today except for some nause a. PHYSICAL EXAMINATION: VITAL SIGNS: Blood pressure is 130/73, heart rate is 93, respiratory rate 16, temperature 98.4, pul se ox 97%. GENERAL: Noted to be awake, comfortable, not in overt distress. SKIN: Adequate turgor. HEENT: Slightly pale conjunctivae, anicteric sclerae. NECK: No neck mass, no carotid bruits, no JVD. CHEST: No deformities. LUNGS: Clear breath sounds. No wheezing or crackles. HEART: Normal sinus rhythm. No murmur, no gallops or rubs. ABDOMEN: Globular, soft, nontender, no masses. EXTREMITIES: No edema. No deformities. MEDICATIONS: 11/06/2016 - Reviewed. LABORATORY: 11/05/2016 - White count 7.2, hemoglobin 7.9, hematocrit 24.6, sodium 139, potassium 3. 5, chloride 100, carbon dioxide 28, BUN 33, creatinine 3.99, glucose 88, calcium 8.4, phosphorus 2.9 , magnesium 1.9. ASSESSMENT AND PLAN: 1. End-stage renal disease, stable. Currently tolerating hemodialysis. We will continue current h emodialysis regimen. Fluid removal as tolerated, no heparin or very minimal heparin use is being do ne. 2. Status post fall with a hip fracture. The patient is status post right hip bipolar hemiarthropl asty with subsequent right femoral hardware removal. Doing well, Surgery is following. Awaiting tr himanshu to rehab. 3. Anemia. The patient is on weekly Epogen. Continue Epogen 10,000 units subcu q. week. 4. Hyperphosphatemia currently on PhosLo 667 mg 2 tabs t.i.d. with meals. Overall, I agree with current management.
[2016-11-06] MEDS: Midodrine HCl 5 MG TAB PO SCH (11:57)
[2016-11-06] MEDS: traMADol HCl 50 MG TAB PO PRN (11:57)
[2016-11-06] MEDS: Cinacalcet HCl 30 MG TAB PO SCH (11:57)
[2016-11-06] MEDS: Escitalopram Oxalate 20 mg Tablet PO SCH (11:57)
[2016-11-06] MEDS: Epoetin (ESRD) 20,000 UNITS/ML SC SCH (15:50)
[2016-11-06 17:12] VITALS: BP 122/55; TEMP 98.2
--- NOTE | 2016-11-08 11:35 | DIS ---
DATE OF ADMISSION: 10/29/2016 DATE OF DISCHARGE: 11/06/2016 ADMISSION DIAGNOSES: 1. Status post ground level fall. 2. Right femoral neck fracture. 3. Multiple comorbidities to include renal failure, requiring dialysis. CONSULTATIONS: Orthopedics, Dr. Herron and Nephrology, Dr. Rucker. PROCEDURES PERFORMED: 1. Right femur hardware removal. 2. Right hip bipolar hemiarthroplasty. SUMMARY: The patient is a 66-year-old woman, who reportedly had a ground level fall and sustained a right hip fracture. The patient was transported to the Emergency Department, evaluated and examine d and found to have the above injuries and was taken to the operating room. On hospital day #3, the patient required some medical stabilization prior to going to the operating room. Once she was the re, she underwent the above procedure and tolerated the procedure well. The patient would continue postoperatively to undergo her medical management and began working with physical and occupational t herapy. At time of discharge, the patient was ambulatory with assistance. Her pain was controlled. She was tolerating her diet and her bowel function had returned. The patient will follow up with Dr. Herron in 2 weeks and with all of her medical doctors to include her assistant passenger locomotive engineer as directed by their services.
== END 2016-11-06 19:27 | disposition home or self-care (01) | DRG 469 ==
LOC: ERS 17:37 → SURG B 18:36 → CCU 10-30 17:57 → SURG A 11-03 15:50
PROVIDERS: ADMIT Surgery; ATTEND Surgery
PROC: 5A1D60Z (ICD-10-PCS; 2016-10-30)
PROC: 30233N1 Transfusion of Nonautologous Red Blood Cells into Peripheral Vein, Percutaneous Approach (ICD-10-PCS; 2016-10-31)
PROC: 0SRR0J9 Replacement of Right Hip Joint, Femoral Surface with Synthetic Substitute, Cemented, Open Approach (ICD-10-PCS; principal; 2016-11-01)
PROC: 0QPB04Z Removal of Internal Fixation Device from Right Lower Femur, Open Approach (ICD-10-PCS; 2016-11-01)
DX: S72.141A Displaced intertrochanteric fracture of right femur, initial encounter for closed fracture (principal); S72.002A Fracture of unspecified part of neck of left femur, initial encounter for closed fracture; T79.4XXA Traumatic shock, initial encounter; N18.6 End stage renal disease; I12.0 Hypertensive chronic kidney disease with stage 5 chronic kidney disease or end stage renal disease; D64.9 Anemia, unspecified; E83.39 Other disorders of phosphorus metabolism; I95.89 Other hypotension; Z88.1 Allergy status to other antibiotic agents; Z88.5 Allergy status to narcotic agent; Z88.8 Allergy status to other drugs, medicaments and biological substances; Z99.2 Dependence on renal dialysis; Z90.11 Acquired absence of right breast and nipple; Z95.1 Presence of aortocoronary bypass graft; Z85.3 Personal history of malignant neoplasm of breast; W19.XXXA Unspecified fall, initial encounter; Y92.89 Other specified places as the place of occurrence of the external cause
CPT/HCPCS: 36415; 36416; 36430; 71010; 72170; 80048; 81001; 82533; 83735; 84100; 85025; 85610; 85730; 86850; 86900; 86901; 87340; 90935; A4216; C1713; C1781; C9113; G0257; G0390; G8978-GP-CN; G8979-GP-CK; G8987-GO-CL; G8988-GO-CI; J0171; J1644; J2001; J2250; J2270; J2405; J2704; J3010; J3490; P9016; P9045; P9047; Q0162; Q4081

== ENCOUNTER 2017-03-24 10:01 | Inpatient (IN) | payer MEDICARE, OTHER ==
[2017-03-24] MEDS ORDERED: Lidocaine 1% w/Epinephrine 1:100K 20 ML VIAL ONE (10:08)
[2017-03-24] MEDS ORDERED: Fentanyl 100 MCG/2 ML VIAL ONE ×3 (10:24→12:11)
[2017-03-24] MEDS ORDERED: diphenhydrAMINE 12.5 MG/5 ML UDCUP ONE (10:29)
[2017-03-24] MEDS ORDERED: diphenhydrAMINE 50 MG/ML VIAL ONE (10:43)
[2017-03-24 10:51] LABS: #Basophils 0.1 thou/uL (0.0-0.2); #Eosinphils 0.6 thou/uL (0.0-0.7); #Lymphocytes 2.3 thou/uL (1.20-3.40); #Monocytes 0.6 thou/uL (0.11-0.59); #Neutrophils 7.2 thou/uL (1.40-6.50); %Basophils 0.9 % (0.0-1.0); %Lymphocytes 21.3 % (21.0-51.0); %Monocytes 5.1 % (0.0-10.0); %Neutrophils 66.7 % (42.0-75.0); Hemoglobin 11.8 g/dL (12.0-16.0); Mean Corpuscular HGB CONC 31.3 g/dL (32.0-36.0); Mean Corpuscular Volume 99.3 fl (81.0-99.0); Mean Platelet Volume 8.4 fL (7.4-10.4); Platelet Count 284 thou/uL (130-400); Red Blood Cell (RBC) Count 3.81 mill/uL (4.20-5.40); White Blood Cell (WBC) Count 10.8 thou/uL (4.8-10.8)
[2017-03-24 11:14] LABS: ALT (SGPT) 12 U/L (8-55); AST (SGOT) 16 U/L (5-34); Albumin 3.9 g/dL (3.4-4.8); Alkaline Phosphatase 182 U/L (40-150); Anion Gap 17 mmol/L (10-20); BUN (Urea Nitrogen) 80 mg/dL (9.8-20.1); Bilirubin, Total 0.5 mg/dL (0.2-1.2); Calc. Creatinine Clearance 0 mL/min (70-130); Calcium 9.3 mg/dL (7.8-10.44); Carbon Dioxide 23 mmol/L (23-31); Chloride 104 mmol/L (98-107); Estimated GFR-MDRD 6; Globulin 3.1 g/dL (2.4-3.5); Glucose 113 mg/dL (80-115); Potassium 5.2 mmol/L (3.5-5.1); Sodium 139 mmol/L (136-145)
--- NOTE | 2017-03-24 11:24 | RAD ---
SINGLE VIEW OF THE CHEST: HISTORY: Chest pain. The patient started hemorrhaging from dialysis graft this morning. COMPARISON: 10/30/2016 FINDINGS: A single view of the chest shows a normal sized cardiomediastinal silhouette. The patient is status post CABG. There is no evidence of consolidation, mass, or pleural effusion. A stent is seen in the left upper extremity. Surgical clips are seen in the right axilla. IMPRESSION: No evidence of acute cardiopulmonary disease. POS: JOY
--- NOTE | 2017-03-24 11:44 | HP ---
HISTORY OF PRESENT ILLNESS: Clarissa Rodriguez is a 66-year-old female who lives with family in [facility], dialyzes at [facility] in [place] and is followed by Dr. Rucker. Apparently she was living in [place] when she needed dialysis access and in [place] she underwent a left arm fistula. This h as been serving her well for dialysis. She was waiting for dialysis this morning, but experienced he morrhage from left upper arm. A tourniquet was placed and she was brought to the emergency room here . The emergency room physician tried to put stitches, but the skin kept tearing. I was called. She had a right humerus IO IV access. She is hemodynamically stable. The patient has a left upper arm primary fistula and a tourniquet in place. At the bedside, I placed several 4-0 nylon sutures to con trol the hemorrhage point and then let the tourniquet down and bleeding ceased. ALLERGIES: None. TOBACCO: None. ALCOHOL: None. MEDICATIONS: Tramadol, zolpidem, Phenergan, pravastatin, ProAmatine, escitalopram Oxylate, Colace, S ensipar, carvedilol 3.125 mg b.i.d., aspirin 81 mg a day, acetaminophen 1000 mg q.6h. PAST SURGICAL HISTORY: Hysterectomy at 18 years of without oophorectomy, appendectomy. Ileal condui t, coronary bypass grafting in [place] followed by Dr. Eubanks, undergoing evaluation for transplant, left upper arm primary fistula in [place]. 03/16/2014 Dr. Ervin Sloan upper endoscopy with biopsies; 01/02/2016 Dr. Espinal right distal femur fracture, ORIF, 03/21/2016 septic arthritis right knee inci donavon and drainage, washout, exploration. 11/01/2016 Dr. Herron right proximal femur fracture, CIRO F. Right mastectomy for cancer, coronary artery bypass grafting x2 vessels in 2002. PAST MEDICAL HISTORY: 1. Breast cancer. 2. End-stage renal disease on dialysis. 3. Hypertension. 4. Stable coronary artery disease followed by Dr. Eubanks. 5. GERD. 6. Echocardiogram 09/28/2016; 50-55% EF, grade I/III diastolic dysfunction, LV size normal, mildly d ilated left atrium, mild tricuspid regurgitation. PHYSICAL EXAMINATION: VITAL SIGNS: Blood pressure 120/70, heart rate 98. LABORATORY: White count 10, hemoglobin 11, 25.6 PTT. EKG pending. LUNGS: Clear to auscultation. CARDIAC: Regular rate and rhythm without murmur or gallop. ABDOMEN: Soft, nontender. Ileal conduit, right lower quadrant, scars per above surgical history. S ternotomy scar per cardiac surgery history. EXTREMITIES: Unremarkable. Left upper arm fistula. ASSESSMENT AND PLAN: 1. Bleeding from left upper arm fistula. This was temporary controlled with two 4-0 nylon sutures. The tourniquet was let down. A right femoral vein central line placed. Patient will be taken to [facility] operating room today for exploration more definitive repair and closure to prevent subsequent bleed ing 2. Stable coronary artery disease. 3. End-stage renal disease on maintenance dialysis. 4. Hypertension. 5. Ileal conduit status. 6. Depression. 7. This is an emergent operation to go to the operating room to prevent further hemorrhage and bleed ing. She is not n.p.o. and this was deemed an emergency to prevent further hemorrhage.
[2017-03-24] MEDS ORDERED: Lidocaine 2% w/Epinephrine 1:200K 20 ML VIAL ONE (11:49)
[2017-03-24] MEDS ORDERED: Ioversol 68 % 50 ML VIAL ONE (11:49)
[2017-03-24] MEDS ORDERED: Bupivacaine PF 0.5% 30 ML VIAL ONE (11:49)
[2017-03-24] MEDS ORDERED: Protamine Sulfate 50 MG/5 ML VIAL ONE ×2 (11:49→13:55)
[2017-03-24] MEDS ORDERED: Heparin 5,000 UNITS/ML VIAL ONE (11:49)
[2017-03-24] MEDS ORDERED: Famotidine/PF 20 mg/2ml Vial ONE (12:29)
[2017-03-24] MEDS ORDERED: Promethazine HCl 25 MG/ML VIAL SLOW IVP PRN (13:41)
[2017-03-24] MEDS ORDERED: Morphine Sulfate 2 MG/ML SYRINGE SLOW IVP PRN (13:41)
[2017-03-24] MEDS ORDERED: HYDROmorphone 2 MG/ML VIAL SLOW IVP PRN (13:41)
[2017-03-24] MEDS ORDERED: Ondansetron HCl/PF 4 MG/2 ML Vial IVP PRN ×2 (13:41→14:05)
[2017-03-24] MEDS ORDERED: Promethazine HCl 25 MG/ML VIAL IM PRN (13:41)
[2017-03-24] MEDS ORDERED: Propofol 200 MG/20 ML VIAL ONE (13:55)
[2017-03-24] MEDS ORDERED: Glycopyrrolate 0.2 MG/ML 5 ML SYRINGE ONE (13:55)
[2017-03-24] MEDS ORDERED: Sterile Water 10 ML VIAL ONE (13:55)
[2017-03-24] MEDS ORDERED: Dexamethasone 20 MG/5 ML VIAL ONE (13:55)
[2017-03-24] MEDS ORDERED: Metoclopramide HCl 10 MG/2 ML VIAL ONE (13:55)
[2017-03-24] MEDS ORDERED: Heparin 10,000 UNITS/ 10 ML VIAL ONE (13:55)
[2017-03-24] MEDS ORDERED: Lidocaine 1% PF 5 ML VIAL ONE (13:55)
[2017-03-24] MEDS ORDERED: PHENYLEPHRINE-NS 100 MCG/ML 10 ML SYRINGE ONE (13:55)
[2017-03-24] MEDS ORDERED: Ondansetron HCl/PF 4 MG/2 ML Vial ONE (13:55)
[2017-03-24] MEDS ORDERED: CEFAZOLIN 1 GM VIAL ONE (13:55)
[2017-03-24] MEDS ORDERED: Dextrose 5% in Water 1,000 ML IV PRN (14:05)
[2017-03-24] MEDS ORDERED: Ondansetron ODT 4 MG TAB PO PRN (14:05)
[2017-03-24] MEDS ORDERED: Dextrose 50% Abboject 50 ML SYRINGE SLOW IVP PRN (14:05)
[2017-03-24] MEDS ORDERED: hydrALAZINE 20 MG/ML VIAL SLOW IVP PRN (14:05)
[2017-03-24] MEDS ORDERED: traMADol HCl 50 MG TAB PO PRN ×2 (14:08)
[2017-03-24] MEDS ORDERED: Acetaminophen 500 MG TAB PO PRN (14:08)
--- NOTE | 2017-03-24 14:27 | OP ---
DATE OF OPERATION: 03/24/2017 PREOPERATIVE DIAGNOSES: Malfunction of left arm fistula with hemorrhage from aneurysmal dilatation, evaluated in the emergency room, and poor IV access. POSTOPERATIVE DIAGNOSES: Malfunction of left arm fistula with hemorrhage from aneurysmal dilatation and evaluated in the emergency room, and poor IV access. PROCEDURE: Placement of sutures, skin overlying hemorrhaging AV fistula aneurysm, distal upper arm. Right femoral vein triple-lumen catheter. SURGEON: Dr. Morris. ANESTHESIA: A 1% Xylocaine. PROCEDURE IN DETAIL: At the patient's bedside in the emergency room, left upper extremity was prepar ed with Betadine and the point of hemorrhage overlying the aneurysm of the distal left upper arm fist terra was identified and interrupted sutures of 4-0 nylon placed to control the hemorrhage. Tourniquet released. Good hemostasis noted. Right groin then prepared with ChloraPrep, draped in routine fashion. Seldinger technique used to pl mary a triple-lumen catheter, removing the J-wire and securing the catheter with 2 interrupted sutures of 3-0 silk and a Biopatch applied. Sterile dressing applied. Patient tolerated the procedure well .
--- NOTE | 2017-03-24 15:35 | OP ---
DATE: 03/24/2017 PREOPERATIVE DIAGNOSIS: Malfunction left upper arm dialysis [place] vein fistula with aneurysmal dila tation and hemorrhage, in need of revision. POSTOPERATIVE DIAGNOSIS: Malfunction left upper arm dialysis [place] vein fistula with aneurysmal dil atation and hemorrhage, in need of revision. PROCEDURE: Revision of left upper arm AV fistula with thrombectomy and repair of aneurysm. SURGEON: Dr. Trae Morris ANESTHESIA: General LMA anesthesia. PROCEDURE IN DETAIL: The patient was taken to the operating room where under general anesthesia, lef t upper extremity was prepared with Betadine, draped in routine fashion. At the site were sutures we re then placed in the emergency room to control the hemorrhage from the left upper arm bleeding aneur ysm and her primary fistula. This fistula is now thrombosed. An elliptical incision was made overly ing this aneurysm, excised in the thinned out skin. The aneurysm was then dissected free proximally and distally, surrounded with Silastic vessel loops. Thrombectomy was then performed proximally ralph ving the thrombus from the proximal fistula and then patient was given 5000 units of heparin intraven ously and after adequate circulation time thrombus removed from the distal fistula arterial inflow, r estoring arterial inflow and the aneurysm repaired by imbricating the aneurysm overlapping itself wit h continuous suture of #4-0 Prolene. Once this was completed, vascular clamps were released noting g ood flow in the fistula. The patient was given protamine 25 mg intravenously by Anesthesia. Subcuta neous tissues approximated with 3-0 Monocryl, skin with subdermal 4-0 Monocryl and DermaGlue applied.
[2017-03-24] MEDS ORDERED: Carvedilol 3.125 MG TAB PO SCH ×2 (17:00→21:00)
[2017-03-24] MEDS: Acetaminophen 500 MG TAB PO SCH ×2 (20:05→23:10)
[2017-03-24] MEDS ORDERED: Famotidine 20 MG TAB PO SCH (21:00)
[2017-03-24] MEDS ORDERED: Pravastatin Sodium 20 MG TAB PO SCH (21:00)
[2017-03-24] MEDS ORDERED: Zolpidem Tartrate 5 MG TAB PO SCH (21:00)
[2017-03-25] MEDS: Acetaminophen 500 MG TAB PO SCH ×2 (05:13→13:30)
[2017-03-25 05:27] VITALS: BMI 25.7
[2017-03-25 05:49] LABS: #Basophils 0.1 thou/uL (0.0-0.2); #Eosinphils 0.1 thou/uL (0.0-0.7); #Lymphocytes 1.9 thou/uL (1.20-3.40); #Monocytes 0.5 thou/uL (0.11-0.59); #Neutrophils 5.5 thou/uL (1.40-6.50); %Basophils 0.7 % (0.0-1.0); %Eosinophils 0.9 % (0.0-10.0); %Lymphocytes 24.3 % (21.0-51.0); %Monocytes 6.1 % (0.0-10.0); Hemoglobin 8.7 g/dL (12.0-16.0); Mean Corpuscular HGB CONC 32.3 g/dL (32.0-36.0); Mean Corpuscular Hemoglobin 32.2 pg (27.0-31.0); Mean Corpuscular Volume 99.6 fl (81.0-99.0); Mean Platelet Volume 8.5 fL (7.4-10.4); Platelet Count 197 thou/uL (130-400); RBC Distribution Width 14.8 % (11.5-14.5); Red Blood Cell (RBC) Count 2.69 mill/uL (4.20-5.40)
[2017-03-25 05:58] LABS: Anion Gap 13 mmol/L (10-20); BUN (Urea Nitrogen) 86 mg/dL (9.8-20.1); Calc. Creatinine Clearance 8 mL/min (70-130); Calcium 8.3 mg/dL (7.8-10.44); Carbon Dioxide 24 mmol/L (23-31); Chloride 105 mmol/L (98-107); Estimated GFR-MDRD 6; Glucose 118 mg/dL (80-115); Potassium 5.2 mmol/L (3.5-5.1); Sodium 137 mmol/L (136-145)
[2017-03-25] MEDS ORDERED: Midodrine HCl 5 MG TAB PO SCH (08:00)
[2017-03-25 08:03] LABS: HBSAg Index 0.34 S/CO (0-0.99); Hep B Surf Ag Non-Reactive S/CO (NonReactive)
--- NOTE | 2017-03-25 08:15 | CON ---
DATE OF CONSULTATION: 03/25/2017 HISTORY OF PRESENT ILLNESS: Ms. Rodriguez is a 66-year-old white female with ESRD, had been on [facility] hemodialysis, and admitted for bleeding from her left upper extremity fistula. She was admit [facility] by Dr. Morris and underwent repair of the primary fistula. As per recommendation by Dr. Morris, we are to avoid placing the needle on the marked area that she is placed after he did a surgery. REVIEW OF SYSTEMS: No chest pain, no shortness of breath, no nausea, no vomiting, no diarrhea. Appe tite and energy level is excellent. No headache, no diplopia, no fever or chills. No gross hematuri a. No dysuria. No hematochezia, no melena, no hematemesis. MEDICATIONS: Include Tylenol 1000 mg q.6 hours p.r.n., Ecotrin 81 mg daily, carvedilol 3.125 mg b.i. d., Sensipar 30 mg tab once a day, Lexapro 20 mg daily, Pepcid 20 mg q.24 hours, midodrine 10 mg eliel ry Friday, Friday, Friday, pravastatin 20 mg tab at bedtime, tramadol p.r.n. PAST MEDICAL HISTORY: Includes the followin. ESRD, currently on maintenance hemodialysis. 2. History of depression. 3. Osteoporosis. 4. Chronic hypotension - on midodrine. 5. Bladder cancer - in remission. 6. Anxiety. 7. Aortic valve disease. 8. Coronary artery disease. 9. Dyslipidemia. 10. DJD. PAST SURGICAL HISTORY: 1. Status post right distal femoral fracture repair. 2. Status post cardiac catheterization. 3. Status post CABG. 4. Status post aortic valve replacement. 5. Status post urostomy placement. 6. Status post AV fistula placement. 7. Status post cuffed dialysis catheter placement. SOCIAL HISTORY: The patient lives in [place], but originally from [place]. Lives alone. She is si ngle. No children. Sedentary lifestyle. Currently, no smoking, no alcohol, no IV drug abuse. She is status post blood transfusion. ALLERGIES: CEFTIN, DEMEROL, LIPITOR. TRAUMA: Status post leg fracture. HOSPITALIZATIONS: Please see past medical history. IMMUNIZATIONS: Up-to-date. FAMILY HISTORY: No family history of ESRD. PHYSICAL EXAMINATION: VITAL SIGNS: Blood pressure is noted at 103/51, heart rate 80, respiratory rate 18, temperature 97.6 , pulse ox 96%. GENERAL EXAM: Noted to be awake, alert, comfortable, not in distress. SKIN: Adequate turgor. HEENT: She has a slightly pale conjunctivae, anicteric sclerae. NECK: No neck mass, no carotid bruits, no JVD. CHEST: No deformities. LUNGS: Clear breath sounds. No wheezing and no crackles. HEART: Normal sinus rhythm. No murmur, no gallops, and no rubs. ABDOMEN: Globular, soft, nontender, no masses. Positive for ileostomy. EXTREMITIES: No edema. NEUROLOGIC: Awake, oriented to 3 spheres. Moving all extremities. No tremors and no asterixis. LABORATORY DATA: Laboratories of 03/25/2017, white count 8, hemoglobin 8.7. Sodium 137, potassium 5 .2, chloride 105, carbon dioxide 24, BUN 86, creatinine 6.76, glucose 118, calcium 8.3. ASSESSMENT AND PLAN: 1. End-stage renal disease. We will attempt hemodialysis using the AV fistula. We will put the nee dle outside the site made by Dr. Morris. We will attempt a 1 liter fluid removal only as tolerated b y the patient. Her Kt/V suggests she is adequately dialyzed with the current dialysis regimen. My p barbara is to do a 3-hour dialysis with that. 2. Status post bleeding AV fistula - this was surgically repaired by Dr. Morris. 3. Anemia - start Epogen 10,000 units subcutaneous q. week. P.r.n. blood transfusion for hemoglobin of less than 7.
[2017-03-25] MEDS ORDERED: Docusate 100 MG CAP PO SCH (09:00)
[2017-03-25] MEDS ORDERED: Cinacalcet HCl 30 MG TAB PO SCH (09:00)
[2017-03-25] MEDS ORDERED: Escitalopram Oxalate 20 mg Tablet PO SCH (09:00)
[2017-03-25] MEDS ORDERED: Aspirin 81 mg Enteric Coated Tablet PO SCH (09:00)
[2017-03-25] MEDS ORDERED: Epoetin (ESRD) 20,000 UNITS/ML SC SCH (10:00)
[2017-03-25 12:32] VITALS: BP 111/56; TEMP 97.7
--- NOTE | 2017-03-25 13:33 | PRG ---
DATE OF SERVICE: 03/25/2017 SUBJECTIVE: Ms. Rodriguez is doing well today. She dialyzed today, avoiding the recently operated segment of her fistula, left upper arm. LABORATORY DATA: Hemoglobin 8.7, white count 8. Electrolytes, potassium 5.2. OBJECTIVE: VITAL SIGNS: 97.7, 92 heart rate, 111/56. GENERAL: The patient is having minimal pain. LUNGS: Clear to auscultation. CARDIAC: Regular rate and rhythm without murmur or gallop. ABDOMEN: Soft and nontender. ASSESSMENT AND PLAN: Hemorrhage from fistula, aneurysmal dilatation status post repair. They are ab le to dialyze her in the remaining functioning segment of the fistula. Expect them to be able to acc ess the operated segment of the fistula in the next 3-4 weeks. She should follow up with me in 3 wee ks. She can be discharged home and resume her home medications.
--- NOTE | 2017-03-25 15:12 | DIS ---
DATE OF ADMISSION: 03/24/2017 DATE OF DISCHARGE: 03/25/2017 DISCHARGE DIAGNOSES: 1. End-stage renal disease with hemorrhage from an aneurysmal dilatation segment of her cephalic vei n/basilic vein fistula, left upper arm. Blood transfused, none. Dialysis this hospitalization. Dr. Chaim Horton. Poor IV access. Placement of a femoral vein central line. 2. Hypertension. 3. 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 Eubanks. Seen by Dr. Sloan in the past for upper endoscopies. Dr. Espinal has performed ORIF of her hip fracture in the past. History of br east cancer status post right mastectomy, history of gastroesophageal reflux disease. HISTORY: A 66-year-old female who had dialysis access established in her left upper extremity perfor med in [place] while she was living in [place]. She has since moved to [place]. She presented to [facility] the morning of hemorrhage and was waiting for dialysis when her fistula began to hemorrha ge. She was transported to [facility] where a tourniquet was placed and effort by the emergency room physician unsuccessful in controlling the hemorrhage. I was consulted, called and pl aced sutures to control the hemorrhage at the bedside. By the time the patient got to the operating room, as a result of the tourniquet, her fistula had thrombosed. At operation, thrombectomy of her f istula was performed and revision of her fistula repairing the blown out area. They were able to marlon lyze her using the more proximal segment. They should avoid access in the distal segment until it he als for 3-4 weeks. She will follow up with me in 3 weeks. She will resume her home medications. Tr amadol, zolpidem, Phenergan, pravastatin, midodrine, Colace, Sensipar, carvedilol, aspirin and acetam inophen.
[2017-03-26] MEDS ORDERED: Midodrine HCl 5 MG TAB PO SCH (09:00)
--- NOTE | 2017-03-29 12:23 | EKG ---
Test Reason : Blood Pressure : / mmHG Vent. Rate : 084 BPM Atrial Rate : 084 BPM P-R Int : 206 ms QRS Dur : 076 ms QT Int : 410 ms P-R-T Axes : 051 050 049 degrees QTc Int : 484 ms Normal sinus rhythm Septal infarct , age undetermined Abnormal ECG Confirmed by JAMILAH SANCHEZ M.D. ([id number]), website/blog editor DORIAN GALEAS ([id number]) on 03/29/2017 12:22:53 PM Referred By: Confirmed By:JAMILAH SANCHEZ M.D.
== END 2017-03-25 15:32 | disposition home or self-care (01) | DRG 252 ==
LOC: ERS 10:01 → SDC 12:20 → SURG B 14:05
PROVIDERS: ADMIT Specialist; ATTEND Specialist
PROC: 05CF0ZZ Extirpation of Matter from Left Cephalic Vein, Open Approach (ICD-10-PCS; principal; 2017-03-24)
PROC: 0X390ZZ Control Bleeding in Left Upper Arm, Open Approach (ICD-10-PCS; 2017-03-24)
PROC: 06HM33Z Insertion of Infusion Device into Right Femoral Vein, Percutaneous Approach (ICD-10-PCS; 2017-03-24)
PROC: 03Q80ZZ Repair Left Brachial Artery, Open Approach (ICD-10-PCS; 2017-03-24)
PROC: 5A1D70Z Performance of Urinary Filtration, Intermittent, Less than 6 Hours Per Day (ICD-10-PCS; 2017-03-25)
DX: T82.838A Hemorrhage due to vascular prosthetic devices, implants and grafts, initial encounter (principal); N18.6 End stage renal disease; I95.89 Other hypotension; I12.0 Hypertensive chronic kidney disease with stage 5 chronic kidney disease or end stage renal disease; T82.868A Thrombosis due to vascular prosthetic devices, implants and grafts, initial encounter; Q89.9 Congenital malformation, unspecified; Z90.5 Acquired absence of kidney; Z93.6 Other artificial openings of urinary tract status; Z99.2 Dependence on renal dialysis; F32.9 Major depressive disorder, single episode, unspecified; M81.0 Age-related osteoporosis without current pathological fracture; F41.9 Anxiety disorder, unspecified; I25.10 Atherosclerotic heart disease of native coronary artery without angina pectoris; E78.5 Hyperlipidemia, unspecified; Z95.1 Presence of aortocoronary bypass graft; Z95.2 Presence of prosthetic heart valve; D64.9 Anemia, unspecified; K21.9 Gastro-esophageal reflux disease without esophagitis
CPT/HCPCS: 12001; 36415; 36556; 71045; 80048; 80053; 85025; 85730; 86850; 86900; 86901; 87340; 90935; 93005; 96361; 96374; A4216; G0257; J0690; J1100; J1200; J1644; J2001; J2405; J2704; J2720; J2765; J3010; Q4081; Q9967; S0020; S0028

== ENCOUNTER 2017-04-01 09:22 | Inpatient (IN) | payer MEDICARE, OTHER ==
[2017-04-01] MEDS ORDERED: Ondansetron HCl/PF 4 MG/2 ML Vial ONE ×3 (10:43→16:31)
--- NOTE | 2017-04-01 12:53 | HP ---
HISTORY OF PRESENT ILLNESS: Clarissa Rodriguez is a 66-year-old female dialysis patient, dialyzes in [facility], followed by Dr. Rucker, dialyzed at [facility] Friday, Friday, and Friday. She had a l eft upper arm dialysis fistula placed in [place]. The patient had hemorrhage 8 days ago from this f istula, requiring revision, repair of aneurysm, closure of wound and dialysis center has been avoidin g accessing the area of recent surgery until followup; however, the patient at home today developed h emorrhage from the left arm. She presented to the emergency room. They controlled the hemorrhage wi th a pressure dressing. She has a large open wound with pulsatile hematoma. Plan is to revise this today, possibly ligated, possible placement of a dialysis catheter and I have ordered right arm ultra sound vein mapping for consideration of new right arm fistula possibly. Risks and benefits explained . She consents. ALLERGIES: None. TOBACCO: None. ALCOHOL: None. MEDICATIONS: Tramadol, zolpidem, Phenergan, pravastatin, ProAmatine, escitalopram oxalate, Colace, S ensipar, carvedilol 3.125 mg b.i.d., aspirin 81 mg a day, and Tylenol q.6 hours p.r.n. PAST SURGICAL HISTORY: Hysterectomy 18 years of age without oophorectomy; appendectomy; ileal condui t; coronary bypass grafting in [place] followed by Dr. Eubanks, undergoing evaluation for renal transp lant, left upper arm primary fistula in [place]. On 03/16/2014, Dr. Sloan, upper endoscopy with biops ies. On 01/02/2016, Dr. Espinal, right distal femur fracture ORIF. On 03/21/2016, septic arthritis, right knee incision and drainage, washout, exploration. On 11/01/2016, Dr. Herron, right proximal femur fracture ORIF. Right mastectomy for cancer and coronary artery bypass grafting x2 vessels in 2002. PAST MEDICAL HISTORY: Breast cancer status post mastectomy; end-stage renal disease on dialysis at [facility] Friday, Friday, and Friday, last dialyzed yesterday; hypertension; stable coronary disease followed by Dr. Eubanks; GERD; echocardiogram 09/28/2016, 50% to 55% ejection fraction, grade 1 or 3 diastolic dysfunction, LV size normal, mildly dilated left atrium, mild tricuspid regurgitatio n. PHYSICAL EXAMINATION: VITAL SIGNS: Heart rate 80 and blood pressure 127/60. HEAD, EARS, EYES, NOSE, AND THROAT: Unremarkable. LUNGS: Clear to auscultation. CARDIAC: Regular rate and rhythm without murmur or gallop. ABDOMEN: Soft, nontender. EXTREMITIES: Left upper arm dialysis fistula, good thrill and bruit. Bandages removed. Distal abov e the antecubital fossa, she has 2 cm open wound with pulsatile hematoma. This was rewrapped with a pressure Coban dressing. ASSESSMENT AND PLAN: 1. End-stage renal disease with dysfunctional fistula left arm, plan exploration and revision as pos sible, possible ligation, possible new fistula, possibly the dialysis catheter. Risks and benefits e xplained. She consents. 2. End-stage renal disease. 3. Coronary artery disease.
[2017-04-01] MEDS ORDERED: Fentanyl 100 MCG/2 ML VIAL ONE ×2 (13:16→15:43)
[2017-04-01 13:27] LABS: Mean Corpuscular HGB CONC 32.6 g/dL (32.0-36.0); Mean Corpuscular Hemoglobin 32.6 pg (27.0-31.0); Mean Corpuscular Volume 99.8 fl (81.0-99.0); RBC Distribution Width 16.3 % (11.5-14.5); Red Blood Cell (RBC) Count 2.76 mill/uL (4.20-5.40); White Blood Cell (WBC) Count 10.6 thou/uL (4.8-10.8)
--- NOTE | 2017-04-01 13:39 | ULT ---
ULTRASOUND VESSEL MAPPING FOR DIALYSIS ACCESS: Date: 04/01/17 HISTORY: 66-year-old female for ERSD. FINDINGS: RIGHT UPPER EXTREMITY CEPHALIC VEIN Proximal Arm: 2.4 mm Mid Arm: 2.1 mm Distal Arm: 1.9 mm Antecubital Fossa: 0.8 mm Proximal Forearm: 0.8 mm Mid Forearm: Too small Distal Forearm: Too small BASILIC VEIN Proximal Arm: 2.8 mm Mid Arm: 2.9 mm Distal Arm: 2.2 mm Antecubital Fossa: 1.6 mm Proximal Forearm: 1.7 mm Mid Forearm: 1.0 mm Distal Forearm: 0.7 mm BRACHIAL ARTERY: 3.7 mm RADIAL ARTERY: 1.7 mm ULNAR ARTERY: 1.6 mm LEFT UPPER EXTREMITY CEPHALIC VEIN Proximal Arm: 3.2 mm Mid Arm: 3.3 mm Distal Arm: 4.0 mm Antecubital Fossa: Not visualized because of bandage material Proximal Forearm: 1.5 mm Mid Forearm: 0.8 mm Distal Forearm: 1.0 mm BASILIC VEIN Proximal Arm: 2.1 mm Mid Arm: 2.1 mm Distal Arm: 2.1 mm Antecubital Fossa: Not visualized because of bandage material Proximal Forearm: 2.4 mm Mid Forearm: 1.4 mm Distal Forearm: 1.1 mm BRACHIAL ARTERY: 2.8 mm RADIAL ARTERY: Unable to be measured because could not be visualized ULNAR ARTERY: Unable to be measured because could not be visualized POS: [facility]
[2017-04-01 13:41] LABS: #Eosinphils 0.3 thou/uL (0.0-0.7); #Lymphocytes 0.9 thou/uL (1.20-3.40); #Monocytes 0.4 thou/uL (0.11-0.59); %Basophils 0.3 % (0.0-1.0); %Eosinophils 3.2 % (0.0-10.0); %Lymphocytes 8.1 % (21.0-51.0); %Monocytes 3.9 % (0.0-10.0); %Neutrophils 84.6 % (42.0-75.0); Anisocytosis SLIGHT = 6-15 cells (100X) (0-5/hpf); MDiff Complete? YES; Mean Platelet Volume 7.4 fL (7.4-10.4); PLT Morphology Comment Appears Adequate; Platelet Count 154 thou/uL (130-400)
[2017-04-01 14:28] LABS: Anion Gap 14 mmol/L (10-20); BUN (Urea Nitrogen) 42 mg/dL (9.8-20.1); Calc. Creatinine Clearance 0 mL/min (70-130); Calcium 9.1 mg/dL (7.8-10.44); Carbon Dioxide 26 mmol/L (23-31); Chloride 100 mmol/L (98-107); Estimated GFR-MDRD 9; Glucose 127 mg/dL (80-115); Potassium 4.8 mmol/L (3.5-5.1); Sodium 135 mmol/L (136-145)
[2017-04-01] MEDS ORDERED: Midazolam HCl 2 mg/2 ml Vial ONE (15:43)
[2017-04-01] MEDS ORDERED: Levofloxacin 500 mg/D5W 100 ml Premix Bag ONE (15:50)
[2017-04-01] MEDS ORDERED: Lidocaine 1% PF 5 ML VIAL ONE (16:31)
[2017-04-01] MEDS ORDERED: PHENYLEPHRINE-NS 100 MCG/ML 10 ML SYRINGE ONE (16:31)
[2017-04-01] MEDS ORDERED: Succinylcholine Chloride 20 MG/ML 10 ml SYRINGE FS ONE (16:31)
[2017-04-01] MEDS ORDERED: PROPOFOL 200 MG/20 ML VIAL ONE (16:31)
[2017-04-01] MEDS ORDERED: ePHEDrine/0.9% NaCl/PF SYRINGE 50 mg/10 ml ONE (16:31)
[2017-04-01] MEDS ORDERED: Sodium Chloride 0.9% 20 ML ONE (16:39)
[2017-04-01] MEDS ORDERED: Heparin 10,000 UNITS/1 ML VIAL ONE (16:39)
[2017-04-01] MEDS ORDERED: Morphine Sulfate 2 MG/ML SYRINGE SLOW IVP PRN (16:41)
[2017-04-01] MEDS ORDERED: Dextrose 5% in Water 1,000 ML IV PRN (16:56)
[2017-04-01] MEDS ORDERED: Dextrose 50% Abboject 50 ML SYRINGE SLOW IVP PRN (16:56)
[2017-04-01] MEDS ORDERED: hydrALAZINE 20 MG/ML VIAL SLOW IVP PRN (16:56)
[2017-04-01] MEDS ORDERED: Sodium Chloride 0.9% 10 ML ONE (16:56)
[2017-04-01] MEDS ORDERED: Ondansetron HCl/PF 4 MG/2 ML Vial IVP PRN (16:56)
[2017-04-01] MEDS ORDERED: Ondansetron ODT 4 MG TAB PO PRN (16:56)
[2017-04-01] MEDS ORDERED: traMADol HCl 50 MG TAB PO PRN ×2 (17:04)
--- NOTE | 2017-04-01 18:43 | RAD ---
PORTABLE CHEST: 04/01/17 HISTORY: Shortness of breath. CCU followup. COMPARISON: 03/24/17. Central line has been placed. A dual lumen central line has been placed via the left jugular. The robert e overlies the SVC and appears in adequate position. The lungs show no focal infiltrate or pneumothor ax. The heart is mildly enlarged with mild vascular engorgement. IMPRESSION: No acute finding. POS: [facility]
[2017-04-01 19:26] LABS: #Basophils 0.1 thou/uL (0.0-0.2); #Lymphocytes 0.9 thou/uL (1.20-3.40); #Monocytes 0.9 thou/uL (0.11-0.59); #Neutrophils 13.3 thou/uL (1.40-6.50); %Basophils 0.4 % (0.0-1.0); %Eosinophils 0.2 % (0.0-10.0); %Lymphocytes 5.8 % (21.0-51.0); %Monocytes 5.8 % (0.0-10.0); %Neutrophils 87.8 % (42.0-75.0); Hemoglobin 9.3 g/dL (12.0-16.0); Mean Corpuscular HGB CONC 31.7 g/dL (32.0-36.0); Mean Corpuscular Hemoglobin 30.3 pg (27.0-31.0); Mean Corpuscular Volume 95.6 fl (81.0-99.0); Mean Platelet Volume 7.4 fL (7.4-10.4); Platelet Count 204 thou/uL (130-400); Red Blood Cell (RBC) Count 3.08 mill/uL (4.20-5.40); White Blood Cell (WBC) Count 15.2 thou/uL (4.8-10.8)
--- NOTE | 2017-04-01 20:09 | OP ---
DATE OF OPERATION: 04/01/2017. PREOPERATIVE DIAGNOSES: Left upper arm washoe cephalic vein dialysis fistula hemorrhage with skin br eakdown, poor intravenous access. POSTOPERATIVE DIAGNOSES: Left upper arm [place] cephalic vein dialysis fistula hemorrhage with skin breakdown, poor intravenous access. PROCEDURES: Placement of left femoral vein triple-lumen catheter in preop holding due to repeated he morrhage from left arm fistula. Revision of left upper arm dialysis fistula due to hemorrhage with l igation without thrombectomy. Left IJ cuffed tunnel dialysis catheter. Ultrasound fluoroscopy used. Note, right internal jugular vein not seen by ultrasound and probably occluded from previous surger ies. Blood transfused, 2 units of blood (preoperative hemoglobin 9, hemorrhage in the ER and in the OR. PROCEDURE IN DETAIL: The patient was taken to the operating room where under general anesthesia, lef t upper extremity was carefully prepared with ChloraPrep, draped in routine fashion while holding pre ssure on the hemorrhaging fistula for hemostasis. Pressure held while dissection carried out, openin g the wound from 8 days ago where the fistula aneurysm was repaired from hemorrhage. This had broken down, was hemorrhaging. Whether it spontaneously broke down and or had been accessed during dialysi s was uncertain. The fistula however was not salvageable. Vein dissected free, opened, and under di rect visualization ligated proximally and distally with continuous to and fro sutures of 4-0 Prolene. This gained hemostasis. Macerated skin debrided sharply. Subcutaneous tissue was approximated wit h 3-0 Monocryl, skin loosely with ana maria, and local anesthetic infiltrated about the wound for posto perative pain control and Prevena dressing applied. Neck and chest were then prepared with ChloraPrep, draped in routine fashion. Local anesthetic infil trated into skin and subcutaneous tissue about the operative site. Ultrasound revealed nonvisualizat ion of the right internal jugular vein. Left internal jugular vein was visible on ultrasound and can nulated with a trocar catheter and J-wire threaded. Trocar catheter removed. Skin was incised and e nlarged sharply. Stab incision was made over the left chest and using the tunneling device, pre-curv ed angiodynamics cuffed tunnel hemodialysis catheter tunneled between the 2 incisions, placing the fa bric cuff beneath the skin exit site and catheter secured with 2 interrupted sutures of 3-0 nylon. D ermabond and sterile dressings applied. Smaller and medium-sized dilators placed over the J-wire int o the internal jugular vein and removed. Dilator and pull-away sheath under fluoroscopic visualizati on passed in the superior vena cava and dilator and J-wire removed. Catheter was placed through a pu ll-away sheath. Pull-away sheath was removed. Catheter fluoroscopically noted to be in good positio n. Platysma approximated with 4-0 Monocryl, skin with subdermal 4-0 Monocryl and DermaGlue applied. Fluoroscopic images revealed good line placement. Each port aspirated of blood and flushed with adal ine solution and heparinized saline solution 1000 units heparin per mL indicated volume of port.
[2017-04-01] MEDS: Sodium Chloride 0.9% 1,000 ML IV SCH (23:30)
[2017-04-01] MEDS: Pravastatin Sodium 20 MG TAB PO SCH (23:35)
[2017-04-01] MEDS: Acetaminophen 500 MG TAB PO SCH (23:35)
[2017-04-01] MEDS: Zolpidem Tartrate 5 MG TAB PO SCH (23:35)
[2017-04-01] MEDS: Famotidine 20 MG TAB PO SCH (23:35)
[2017-04-02 00:09] VITALS: BMI 28.0
[2017-04-02] MEDS: Acetaminophen 500 MG TAB PO SCH ×4 (00:46→17:23)
[2017-04-02 04:39] LABS: #Lymphocytes 1.1 thou/uL (1.20-3.40); #Monocytes 0.6 thou/uL (0.11-0.59); #Neutrophils 10.1 thou/uL (1.40-6.50); %Basophils 0.4 % (0.0-1.0); %Eosinophils 0.2 % (0.0-10.0); %Lymphocytes 9.5 % (21.0-51.0); Hemoglobin 8.9 g/dL (12.0-16.0); Mean Corpuscular HGB CONC 32.6 g/dL (32.0-36.0); Mean Corpuscular Hemoglobin 31.1 pg (27.0-31.0); Mean Corpuscular Volume 95.3 fl (81.0-99.0); Mean Platelet Volume 8.1 fL (7.4-10.4); Platelet Count 159 thou/uL (130-400); RBC Distribution Width 15.2 % (11.5-14.5); Red Blood Cell (RBC) Count 2.85 mill/uL (4.20-5.40); White Blood Cell (WBC) Count 11.8 thou/uL (4.8-10.8)
[2017-04-02 04:52] LABS: Anion Gap 12 mmol/L (10-20); BUN (Urea Nitrogen) 49 mg/dL (9.8-20.1); Calc. Creatinine Clearance 11 mL/min (70-130); Calcium 8.1 mg/dL (7.8-10.44); Carbon Dioxide 27 mmol/L (23-31); Chloride 101 mmol/L (98-107); Estimated GFR-MDRD 8; Glucose 104 mg/dL (80-115); Sodium 135 mmol/L (136-145)
[2017-04-02] MEDS: Sodium Chloride 0.9% 1,000 ML IV SCH ×2 (08:44→21:56)
[2017-04-02] MEDS: Loratadine 10 MG TAB PO SCH (08:45)
[2017-04-02] MEDS: Escitalopram Oxalate 20 mg Tablet PO SCH (08:45)
[2017-04-02] MEDS: Docusate 100 MG CAP PO SCH (08:45)
[2017-04-02] MEDS: Cinacalcet HCl 30 MG TAB PO SCH (08:45)
[2017-04-02] MEDS: Aspirin 81 mg Enteric Coated Tablet PO SCH (08:45)
[2017-04-02] MEDS ORDERED: Midodrine HCl 5 MG TAB PO SCH (09:00)
[2017-04-02] MEDS ORDERED: Carvedilol 25 MG TAB PO SCH (09:00)
[2017-04-02] MEDS ORDERED: Epoetin (ESRD) 20,000 UNITS/ML SC SCH (09:00)
--- NOTE | 2017-04-02 09:23 | PRG ---
DATE OF SERVICE: 04/02/2017 SUBJECTIVE: Ms. Rodriguez is a 66-year-old white female with known history of end-stage renal dise ase - on maintenance hemodialysis and was admitted due to hemorrhage around her AV fistula. Please n ote this patient was also admitted for the same problem. Surgical intervention was done at that time . However, she had recurrent bleeding from the AV fistula. She was seen by Surgery and ligation of the said AV fistula was done. Also, a cuffed hemodialysis, a left hemodialysis IJ catheter was place d. The plan is to create a new AV fistula on the right upper extremity. I am at the bedside supervi sing her dialysis. We are using no heparin, we are targeting about 3 liters of fluid removal as tole rated by the patient. She voices no new complaints. She denies any chest pain, shortness of breath. PHYSICAL EXAMINATION: VITAL SIGNS: Blood pressure is noted at 101/70 with a heart rate of 83, respiratory rate 18, tempera ture 98.9, pulse ox 97%. GENERAL: The patient is awake, alert, comfortable, not in distress. SKIN: Adequate turgor. HEENT: She has slightly pale conjunctivae, anicteric sclerae. NECK: No neck mass, no carotid bruits, no JVD. CHEST: No deformities. LUNGS: Clear breath sounds. No wheezing, no crackles. HEART: Normal sinus rhythm. No murmur, no gallops or rubs. ABDOMEN: Globular, soft, nontender. Positive for urostomy. EXTREMITIES: No edema, no deformities. MEDICATIONS: 04/02/2017 - Reviewed. LABORATORY: 04/02/2017 - White count 11.8, hemoglobin 8.9, sodium 135, potassium 5, chloride 101, ca rbon dioxide 27, BUN 49, creatinine 5.54, glucose 104, calcium 8.1. ASSESSMENT AND PLAN: 1. Anemia - multifactorial etiology. This could also be related to the recent bleeding AV fistula. We will start Epogen 10,000 units subcu q. week, p.r.n. blood transfusion. 2. End-stage renal disease, stable. Continue current Friday, Friday, Friday hemodialysis. We ar e using currently dialysis catheter with the patient. Plan new right upper extremity AV fistula is t o be placed this afternoon by her surgeon. Review of the last Kt/V suggests the patient is currently dialyzed adequately with the current dialysis regimen. We will attempt minimal fluid removal with t his patient due to the relatively lower blood pressure.
--- NOTE | 2017-04-02 10:53 | PRG ---
DATE OF SERVICE: 04/02/2017 Ms. Rodriguez is doing well today. She was moved to [facility] yesterday because her blood pressure was i n the 90s, although they have taken her blood pressure through her leg because of a previous right m astectomy and recent left arm surgery. The patient's hemoglobin is 9 this morning. She was moved to [facility] and her blood pressure is normal. Her heart rate has been normal. She has been mentating norm al. She dialyzed this morning. Plan is to place a left arm dialysis fistula or graft today and poss ibly discharged home later today. The patient understands risks and benefits and consents. The jazzy ent will be transferred from [facility] to the floor.
[2017-04-02] MEDS ORDERED: Acetaminophen 500 MG TAB PO PRN (13:14)
[2017-04-02] MEDS ORDERED: Lorazepam 2 MG/ML VIAL SLOW IVP SCH (14:30)
[2017-04-02] MEDS ORDERED: PROPOFOL 200 MG/20 ML VIAL ONE (16:07)
[2017-04-02] MEDS ORDERED: Ondansetron HCl/PF 4 MG/2 ML Vial ONE (16:07)
[2017-04-02] MEDS ORDERED: Heparin 10,000 UNITS/ 10 ML VIAL ONE (16:07)
[2017-04-02] MEDS ORDERED: PHENYLEPHRINE-NS 100 MCG/ML 10 ML SYRINGE ONE (16:07)
[2017-04-02] MEDS ORDERED: Protamine Sulfate 50 MG/5 ML VIAL ONE (16:17)
[2017-04-02] MEDS ORDERED: Lidocaine 1% w/Epinephrine 1:200K 30 ML VIAL ONE (16:17)
[2017-04-02] MEDS ORDERED: Ioversol 68 % 50 ML VIAL ONE (16:17)
[2017-04-02] MEDS ORDERED: Bupivacaine 0.25% HCL 30 ML VIAL ONE (16:17)
[2017-04-02] MEDS ORDERED: Heparin 5,000 UNITS/ML VIAL ONE (16:17)
[2017-04-02] MEDS ORDERED: Fentanyl 100 MCG/2 ML VIAL ONE ×2 (16:32→18:50)
[2017-04-02] MEDS ORDERED: Propofol 1,000 MG/100 ML VIAL IV ONE (16:32)
[2017-04-02] MEDS ORDERED: Levofloxacin 500 mg/D5W 100 ml Premix Bag ONE (17:00)
--- NOTE | 2017-04-02 18:09 | CON ---
DATE OF CONSULTATION: 04/02/2017 REASON FOR CONSULTATION: Medical management. HISTORY OF PRESENT ILLNESS: 66-year-old female with a past medical history of hypertension, anxiety/ depression, end-stage renal disease on hemodialysis, anemia of chronic inflammation and CAD who was admitted due to hemorrhage around her fistula sites for which she underwent a left femoral triple lumen catheter placement. She was also taken to the OR, where she had exploration and revision and possible ligation with a new fistula of her left arm. She underwent surgery successfully and she had a left femoral triple lumen catheter placed. She is to have a dialysis catheter placed today and likely discharge later in the day. Internal Medicine was consulted due to patient undergoing hypotension yesterday, which necessitated transfer to the ICU. Today, she has no complaints. She reports she gets hypotensive sometimes during dialysis. She denies chest pain, shortness of breath or any other symptoms. PAST MEDICAL HISTORY: As above. REVIEW OF SYSTEMS: Constitutional: Denies fevers, chills. HEENT: Denies headache, dizziness, changes in vision. Neck: Denies neck pain. Respiratory: Denies cough, shortness of breath or sputum production. CVS: Denies chest pain, shortness of breath, palpitation, PND or orthopnea. Denies lower extremity edema. Abdomen: Negative. : Negative. Skin: Denies rashes or lesions. Hematologic: Denies easy bruising. Allergy/immunology: Negative. Musculoskeletal: Negative. Neurology: Negative. PHYSICAL EXAMINATION: VITAL SIGNS: Stable. GENERAL: Not in acute distress. HEENT: Normocephalic, atraumatic. PERRLA, EOMI NECK: Supple, full range of movement. RESPIRATORY: Clear to auscultation bilaterally with no wheezes or rales. CARDIOVASCULAR: Regular rate and rhythm without murmurs or gallops. ABDOMEN: Soft and nondistended. Bowel sounds positive. EXTREMITIES: She had a left upper arm dialysis fistula. NEUROLOGIC: Alert and well oriented. No focal defects. SKIN: Warm and well perfused. MUSCULOSKELETAL: Moving all extremities spontaneously. No musculoskeletal deformities. LABORATORY DATA: WBC of 11.8, hemoglobin 8.9, platelets 159. Sodium 135, potassium 5, chloride 101, carbon dioxide 27, anion gap 12, BUN 49, creatinine 5.54. IMAGING: Chest x-ray done on 04/01/2017 had no acute findings. ASSESSMENT AND PLAN: 1. End-stage renal disease on hemodialysis: last hemodialysis was earlier today and she tolerated well. Her blood pressure has stabilized. Plan is for patient to resume hemodialysis per her usual schedule. 2. Fistula hemorrhage. The patient is postop and has been assessed by surgery. Plan to have dialysis catheter placement, which patient will get dialysis from. 3. Hypertension. Her home regimen includes carvedilol on Mondays, Wednesdays, and Fridays. Plan is for patient to continue this regimen. We will hold antihypertensives while she is on admission. 4. Anxiety/depression. Patient takes zolpidem, escitalopram at home. The patient should reduce this regimen and followup with her primary care physician. 5. Anemia of chronic disease. Hemoglobin has been stable on this admission ranging between 8.9 and 9.3. She continue with getting EPO with hemodialysis. 6. Coronary artery disease. She is currently chest pain free. She will be continued on aspirin, carvedilol per her home schedule. CODE STATUS: FULL CODE. MTDD
[2017-04-02] MEDS ORDERED: Promethazine HCl 25 MG/ML VIAL IM PRN (18:49)
[2017-04-02] MEDS ORDERED: Promethazine HCl 25 MG/ML VIAL SLOW IVP PRN (18:49)
[2017-04-02] MEDS ORDERED: Ondansetron HCl/PF 4 MG/2 ML Vial IVP PRN (18:49)
[2017-04-02] MEDS: Pravastatin Sodium 20 MG TAB PO SCH (20:41)
[2017-04-02] MEDS: Zolpidem Tartrate 5 MG TAB PO SCH (20:41)
[2017-04-02] MEDS: Famotidine 20 MG TAB PO SCH (20:41)
[2017-04-02] MEDS ORDERED: Acetaminophen 500 MG TAB PO SCH (23:59)
[2017-04-03] MEDS ORDERED: Acetaminophen 500 MG TAB PO SCH (00:30)
[2017-04-03] MEDS: Acetaminophen 500 MG TAB PO SCH ×5 (00:49→12:34)
[2017-04-03 06:01] LABS: #Monocytes 0.7 thou/uL (0.11-0.59); #Neutrophils 6.2 thou/uL (1.40-6.50); %Basophils 0.4 % (0.0-1.0); %Eosinophils 0.5 % (0.0-10.0); %Lymphocytes 12.7 % (21.0-51.0); %Monocytes 8.7 % (0.0-10.0); %Neutrophils 77.7 % (42.0-75.0); Hemoglobin 8.4 g/dL (12.0-16.0); Mean Corpuscular Hemoglobin 31.7 pg (27.0-31.0); Mean Corpuscular Volume 96.2 fl (81.0-99.0); Mean Platelet Volume 8.5 fL (7.4-10.4); Platelet Count 140 thou/uL (130-400); RBC Distribution Width 15.4 % (11.5-14.5); Red Blood Cell (RBC) Count 2.64 mill/uL (4.20-5.40)
[2017-04-03 06:11] LABS: Anion Gap 15 mmol/L (10-20); BUN (Urea Nitrogen) 28 mg/dL (9.8-20.1); Calc. Creatinine Clearance 15 mL/min (70-130); Calcium 8.2 mg/dL (7.8-10.44); Carbon Dioxide 28 mmol/L (23-31); Chloride 98 mmol/L (98-107); Estimated GFR-MDRD 11; Glucose 136 mg/dL (80-115); Potassium 4.5 mmol/L (3.5-5.1); Sodium 136 mmol/L (136-145)
--- NOTE | 2017-04-03 06:19 | OP ---
DATE OF PROCEDURE: 04/02/2017 PREOPERATIVE DIAGNOSES: End-stage renal, status post hemorrhaging, left upper arm fistula, status po st ligation. PROCEDURE: Right arm primary fistula, perforating branch antecubital vein to the proximal radial art junito and sole outflow basilic vein calibrated to a 3-mm coronary dilator with some restriction to a 3. 5 coronary dilator. Retrograde antecubital vein, fibrotic cephalic vein, fibrotic from prior IV acce ss. SURGEON: Dr. Trae Morris. ANESTHESIA: General. 0.5% Marcaine, 30 mL, mixed with 2% Xylocaine 20 mL with epinephrine. Note, patient will need a basilic vein transposition fistula in the future. PROCEDURE IN DETAIL: Patient taken to the operating room where under general anesthesia, the right u pper extremity was prepared with chloraprep, draped in routine fashion. Local anesthetic infiltrated into skin and subcutaneous tissue about the operative site. Longitudinal incision made below the an tecubital fossa on the proximal volar forearm, carried down through the skin and subcutaneous tissue. Antecubital vein dissected free. Cephalic vein was fibrotic, retrograde antecubital vein, and fibr otic perforating branch of the antecubital vein dissected free and branches divided between clips and it was spatulated over a branch point, interrogated with coronary dilators, passing coronary dilator s from a 2 mm to a 3 mm coronary dilator with some restriction outflow. A 3.5 mm coronary dilator wo uld not pass. Proximal radial artery, brachial artery, ulnar artery dissected free. Patient given 6 000 units of heparin intravenously. After adequate circulation time, the brachial, radial, and ulnar arteries clamped with vascular clamps. Longitudinal arteriotomy made sharply and elongated with the Amin scissors and end vein to side proximal artery anastomosis created with continuous suture of 6- 0 Prolene. After completing anastomosis, vascular clamps were released and there was good hemostasis . Surgicel applied. Patient given 25 mg of protamine intravenously. There was good Doppler signal on the basilic vein outflow. Subcutaneous tissues approximated with 3-0 Monocryl, skin with subderma l 4-0 Monocryl and DermaGlue applied. Patient may need a dialysis graft if this does not mature, unl ess of course we can possibly consider fistula in her left arm after that wound heals from ligation o f her hemorrhaging fistula.
[2017-04-03] MEDS: Cinacalcet HCl 30 MG TAB PO SCH (08:10)
[2017-04-03] MEDS: Loratadine 10 MG TAB PO SCH (08:10)
[2017-04-03] MEDS: Escitalopram Oxalate 20 mg Tablet PO SCH (08:10)
[2017-04-03] MEDS: Docusate 100 MG CAP PO SCH (08:11)
[2017-04-03] MEDS: Aspirin 81 mg Enteric Coated Tablet PO SCH (08:12)
--- NOTE | 2017-04-03 11:33 | PDOC.PN ---
- Subjective Encounter Start Date: 04/03/17 Encounter Start Time: 11:41 Subjective: No new complaints but she reports being anxious due to numerous OR visits -: No acute events overnight. - Objective MAR Reviewed: Yes Vital Signs & Weight: Vital Signs (12 hours) Temp Pulse Resp BP Pulse Ox 04/03/17 08:00 97.8 F 87 20 94 L 04/03/17 07:10 97.8 F 87 20 91/47 L 94 L 04/03/17 04:00 98.2 F 89 18 100/60 93 L 04/03/17 00:00 98.8 F 91 18 116/78 97 Weight Weight 159 lb 2 oz I&O: 04/02/17 04/03/17 04/04/17 06:59 06:59 06:59 Intake Total 1190 500 Output Total 225 250 Balance 965 250 Result Diagrams: 04/03/17 05:10 04/03/17 05:10 Phys Exam - Physical Examination Constitutional: NAD HEENT: PERRLA, moist MMs, sclera anicteric Neck: supple, full ROM Respiratory: no wheezing, no rales, no rhonchi, clear to auscultation bilateral Cardiovascular: RRR, no significant murmur, no rub Gastrointestinal: soft, non-tender, no distention, positive bowel sounds Musculoskeletal: no edema, pulses present R arm fistula Neurological: non-focal, moves all 4 limbs Psychiatric: A&O x 3 Deviation from normal: Anxious and teary Skin: no rash, normal turgor Dx/Plan (1) Hypertension Code(s): I10 - ESSENTIAL (PRIMARY) HYPERTENSION Status: Chronic Qualifiers: Hypertension type: essential hypertension Qualified Code(s): I10 - Essential (primary) hypertension Comment: HAs had borderline BP but asymptomatic. Holding parameters on Coreg instituted- should meet with cardiology and consider d/c medication, especially as she's on midodrine.. Continue midodrine. Will monitor. (2) Anemia in chronic kidney disease Code(s): N18.9 - CHRONIC KIDNEY DISEASE, UNSPECIFIED; D63.1 - ANEMIA IN CHRONIC KIDNEY DISEASE Status: Chronic Qualifiers: Chronic kidney disease stage: on chronic dialysis Qualified Code(s): N18.6 - End stage renal disease; D63.1 - Anemia in chronic kidney disease; D63.1 - Anemia in chronic kidney disease; Z99.2 - Dependence on renal dialysis; Z99.2 - Dependence on renal dialysis; Z99.2 - Dependence on renal dialysis; Z99.2 - Dependence on renal dialysis Comment: Trending down after surgical procedures. Still > 8 today. Monitor. EPO w HD. (3) Anxiety and depression Code(s): F41.9 - ANXIETY DISORDER, UNSPECIFIED; F32.9 - MAJOR DEPRESSIVE DISORDER, SINGLE EPISODE, UNSPECIFIED Status: Chronic Comment: COntinue hoome medications. Anxious but denies SI/HI. Lorazepam PRN for anxiety. (4) CAD (coronary artery disease), [place] coronary artery Code(s): I25.10 - ATHSCL HEART DISEASE OF [place] CORONARY ARTERY W/O ANG PCTRS Status: Chronic Qualifiers: [place] vs. transplanted heart: [place] heart Associated angina: without angina Qualified Code(s): I25.10 - Atherosclerotic heart disease of [place] coronary artery without angina pectoris Comment: Stable, chest pain free. (5) ESRD (end stage renal disease) on dialysis Code(s): N18.6 - END STAGE RENAL DISEASE; Z99.2 - DEPENDENCE ON RENAL DIALYSIS Status: Chronic Comment: R mariela rodriguez placed 04/02. Also has a triple lumen catheter. Dialysis per nephrology. - Plan cont current plan of care * .
[2017-04-03] MEDS ORDERED: Lorazepam 0.5 MG TAB PO PRN (11:37)
[2017-04-03] MEDS: Sodium Chloride 0.9% 1,000 ML IV SCH (12:37)
[2017-04-03] MEDS ORDERED: Bacitracin Zinc 1 Packet TOP SCH (14:15)
--- NOTE | 2017-04-03 15:11 | DIS ---
DATE OF ADMISSION: 04/01/2017 DATE OF DISCHARGE: 04/03/2017 DISCHARGE DIAGNOSES: Hemorrhaging from left upper arm dialysis fistula that was repaired eight days prior. This fistula was formed in [place] more than a year ago. Poor IV access requiring central li ne, groin. Placement of hemodialysis catheter and ligation of left arm fistula. Marking ultrasound revealed suboptimal veins, right. On 04/02/2017 right arm fistula, perforating branch antecubital vein to the outflow basilic vein andrew brated to a 3 mm coronary dilator would not accept a larger dilator due to some stenosis. At the jose roberto e of discharge, she had a good thrill and bruit and if this remains patent she will need a basilic ve in transposition fistula in the future. Wound care left arm should consist of washing the wound lowell y with soap and water and placing antibiotic ointment and a Band-Aid. Prevena dressing removed from the left arm the day of discharge. The wound looks good. The patient received 3 units of blood this hospitalization. She is discharged home today. DISCHARGE MEDICATIONS: To resume her home medications, zolpidem, pravastatin, omeprazole, ProAmatine , Claritin, escitalopram, Colace, oxalate, Colace daily, Sensipar, Coreg 12.5 mg Friday, Friday, a friday; aspirin 81 mg a day, Tylenol p.r.n., tramadol p.r.n. Follow up with Dr. Morris 2-3 weeks. Renal diet and exercise her right arm. HISTORY: A 66-year-old female who had a fistula placed in the left arm in [place]. She dialyzes in [place]. She was sent 8 days ago for hemorrhaging from her left arm fistula. She underwent repair o f an aneurysm and revision of the skin and thrombectomy. They were using the more proximal fistula a voiding the recent surgical area. The patient presented on this occasion with disruption of her rece nt surgical wound and hemorrhage. Hemostasis gained with pressure in the emergency room. The patien t was transferred to Day Stay where she experienced recurrent hemorrhage. She was taken to the opera ting room emergently for ligation of her fistula, placement of hemodialysis catheter. The following day, she had a right arm fistula form, outflow basilic vein as the cephalic vein and retrograde antec ubital vein were fibrotic from IV access. If this vein remains patent, she will need a transposition fistula in the future. She will need ana maria removed from her left arm and follow up in 2-3 weeks. She will wash the left arm wound with soap and water daily and apply antibiotic ointment.
--- NOTE | 2017-04-03 15:14 | PRG ---
DATE OF SERVICE: 04/03/2017 SUBJECTIVE: Ms. Clarissa Rodriguez is a 66-year-old female doing well today, dialyzed yesterday. Prev bertin dressing in the left arm wound removed. Wound looks good with a 2-3 focal openings between stapl es. We would recommend that she wash this daily with soap and water and apply antibiotic ointment wi th Band-Aid. Right arm surgical wound looks good, proximal forearm. Good thrill and bruit over her basilic vein fistula. She will need a basilic vein transposition fistula in the future, but we will reassess her in 4-6 weeks. She will dialyze using her dialysis catheter until then. We will remove her groin catheter. LABORATORY DATA: Hemoglobin 8.4, white count 8. ASSESSMENT AND PLAN: Status post dysfunctional dialysis fistula, left arm. Status post hemorrhage x 2 with 3 units of blood transfused, ligation of fistula this hospitalization, placement of a hemodial ysis catheter, placement of femoral vein central line for poor IV access and formation of right arm f istula. On 04/02/2017, she had fibrotic veins and basilic vein perforating branch were the only outf low from the proximal radial artery. She will need a transposition fistula. This is patent. If thi s occludes, then options are for right arm prosthetic graft versus left arm attempted fistula (previo us fistula at another facility, had to be ligated due to hemorrhages.) The patient will be discharg ed home today and follow up in my office in 2-3 weeks.
[2017-04-03] MEDS ORDERED: Lorazepam 1 MG TAB PO PRN (15:30)
[2017-04-03 15:46] VITALS: BP 118/56; TEMP 97.9
[2017-04-04] MEDS ORDERED: Carvedilol 6.25 MG TAB PO SCH (09:00)
[2017-04-04] MEDS ORDERED: Carvedilol 25 MG TAB PO SCH (09:00)
[2017-04-08 14:13] LABS: Actual Bicarbonate (HCO3v) 27 mEq/L (22-26); Analyzer IN Cardio OR; Base Excess 1.1 mEq/L (0 (+/- 2.5)); Hematocrit-VBG 26.3 % (35-47); Hemoglobin (Hb) 7.6 g/dL (11.7-16.1); pH (venous) 7.34 (7.35-7.45)
[2017-04-08 14:14] LABS: Calcium, Ionized 1.13 mmol/L (1.16-1.32); Chloride (ABG LAB) 99 mmol/L (98-106); Potassium - ABG Lab 5.1 mmol/L (3.70-5.30); Sodium 137.3 mmol/L (133-146)
== END 2017-04-03 17:30 | disposition home or self-care (01) | DRG 263 ==
LOC: ERS 09:22 → SDC 14:00 → ERS 14:25 → SURG A 16:56 → IMCU/EMU 22:24 → SJJU 04-02 17:34
PROVIDERS: ADMIT Specialist; ATTEND Specialist
PROC: 05QF0ZZ Repair Left Cephalic Vein, Open Approach (ICD-10-PCS; 2017-04-01)
PROC: 02HV33Z Insertion of Infusion Device into Superior Vena Cava, Percutaneous Approach (ICD-10-PCS; 2017-04-01)
PROC: B54PZZZ Ultrasonography of Bilateral Upper Extremity Veins (ICD-10-PCS; 2017-04-01)
PROC: 031B0ZF Bypass Right Radial Artery to Lower Arm Vein, Open Approach (ICD-10-PCS; principal; 2017-04-02)
PROC: 5A1D70Z Performance of Urinary Filtration, Intermittent, Less than 6 Hours Per Day (ICD-10-PCS; 2017-04-02)
DX: T82.838A Hemorrhage due to vascular prosthetic devices, implants and grafts, initial encounter (principal); I12.0 Hypertensive chronic kidney disease with stage 5 chronic kidney disease or end stage renal disease; N18.6 End stage renal disease; I25.10 Atherosclerotic heart disease of native coronary artery without angina pectoris; F41.9 Anxiety disorder, unspecified; F32.9 Major depressive disorder, single episode, unspecified; D63.1 Anemia in chronic kidney disease; Z79.82 Long term (current) use of aspirin; Z79.899 Other long term (current) drug therapy; Z95.1 Presence of aortocoronary bypass graft; Z85.3 Personal history of malignant neoplasm of breast; Z90.11 Acquired absence of right breast and nipple; Z99.2 Dependence on renal dialysis; Y83.8 Other surgical procedures as the cause of abnormal reaction of the patient, or of later complication, without mention of misadventure at the time of the procedure
CPT/HCPCS: 36415; 36430; 71045; 80048; 82805; 85025; 86850; 86900; 86901; 90935; 93970; 96374; 96375; A4216; C1752; C1769; G0257; G0365; J1642; J1644; J1956; J2001; J2250; J2270; J2405; J2704; J2720; J3010; P9016; Q4081; Q9967; S0020

== ENCOUNTER 2017-04-04 14:41 | Inpatient (IN) | payer MEDICARE, OTHER ==
--- NOTE | 2017-04-04 15:48 | RAD ---
PORTABLE CHEST ONE VIEW 04/04/17 at 3:05 p.m. HISTORY: Cough. FINDINGS/IMPRESSION: Comparison is made with exam of 04/01/17. Changes of median sternotomy again seen. The heart size is stable. Left sided dialysis catheter remai ns in place. No lobar consolidation, pneumothorax or large effusions are seen. There is mild promine nce of the pulmonary vascularity. Postop changes in the right axilla are again seen. POS: [facility]
[2017-04-04 16:24] LABS: Bilirubin Small (Negative); Blood, Urine Negative (Negative); Clarity CLOUDY (Clear); Glucose, Urine (Dipstick) Negative (Negative); Leukocyte Small (Negative); Nitrite Negative (Negative); Protein, Urine (Dipstick) 100 mg/dL (Neg-Trace); Specific Gravity, Urine 1.018 (1.002-1.036); pH, Urine 6.5 (5.0-9.0)
[2017-04-04 16:25] LABS: Hemoglobin 8.4 g/dL (12.0-16.0); Mean Corpuscular HGB CONC 32.6 g/dL (32.0-36.0); Mean Corpuscular Hemoglobin 31.2 pg (27.0-31.0); Mean Corpuscular Volume 95.8 fl (81.0-99.0); Mean Platelet Volume 9.2 fL (7.4-10.4); Platelet Count 156 thou/uL (130-400); RBC Distribution Width 15.3 % (11.5-14.5); Red Blood Cell (RBC) Count 2.69 mill/uL (4.20-5.40); White Blood Cell (WBC) Count 14.4 thou/uL (4.8-10.8)
[2017-04-04 16:26] LABS: Bacteria/HPF 4+ HPF (None Seen); Hyaline Casts/LPF 4-6 HYALINE CAST LPF (0-3 Hyaline); Pathc Cast-AUWi Flag 1.26 (0-2.49); Squamous Epithelial 0-3 HPF (0-3)
--- NOTE | 2017-04-04 16:26 | CT ---
NONCONTRAST CT HEAD 04/04/17 HISTORY: Altered mental status. Generalized headache. COMPARISON: 03/05/14. FINDINGS: Scattered low density areas are seen in the periventricular white matter which are nonspecific but li nino reflective of chronic small vessel ischemic changes. There is no evidence of an acute cortical infarction, hemorrhage, mass effect, or midline shift. Ventricular system is normal in size, shape an d position. Mild mucosal thickening is present in the right maxillary antrum. Mastoid air cells are clear. No oth er interval change. IMPRESSION: 1. No acute intracranial abnormalities demonstrated. 2. Mild chronic small vessel ischemic changes. 3. Mild sinus disease. POS: [facility]
[2017-04-04 16:28] LABS: Yeast-AUWi Flag 43.5 (0-25.0)
[2017-04-04 16:35] LABS: ALT (SGPT) 24 U/L (8-55); AST (SGOT) 28 U/L (5-34); Albumin 2.8 g/dL (3.4-4.8); Alkaline Phosphatase 170 U/L (40-150); Anion Gap 12 mmol/L (10-20); BUN (Urea Nitrogen) 14 mg/dL (9.8-20.1); Calc. Creatinine Clearance 0 mL/min (70-130); Calcium 8.7 mg/dL (7.8-10.44); Carbon Dioxide 31 mmol/L (23-31); Chloride 98 mmol/L (98-107); Estimated GFR-MDRD 19; Globulin 2.7 g/dL (2.4-3.5); Glucose 127 mg/dL (80-115); Potassium 3.5 mmol/L (3.5-5.1); Protein, Total 5.5 g/dL (6.0-8.3); Sodium 137 mmol/L (136-145)
[2017-04-04 16:37] LABS: RBC/HPF 0-3 HPF (0-3); Yeast-All Forms None Seen HPF (None Seen)
[2017-04-04 16:38] LABS: Crystals/HPF RARE CA OXALATE HPF (Negative)
[2017-04-04 16:42] LABS: Anisocytosis SLIGHT = 6-15 cells (100X) (0-5/hpf); Band 39 % (5-11); Lymphocytes 1 % (21-51); MDiff Complete? YES; Metamyelocyte 1 % (0-0); Monocytes 1 % (0-10); Neutrophil 57 % (42-75); Ovalocytes SLIGHT = 2-5 cells (100X) (0-1/hpf); PLT Morphology Comment Appears Adequate; Polychromasia SLIGHT = 2-3 cells (100X) (0-2/hpf); Reactive Lymphocytes 1 % (0-10); Target Cells SLIGHT = 2-5 cells (100X) (0-1/hpf); Toxic Granulation SLIGHT; Vacuoles SLIGHT
[2017-04-04] MEDS ORDERED: Piperacillin/Tazobactam 4.5 GM in Sodium Chloride 0.9% 100 ML IVPB SCH (18:00)
[2017-04-04] MEDS ORDERED: Acetaminophen 325 MG TAB PO PRN (19:04)
[2017-04-04] MEDS ORDERED: Acetaminophen 650 MG Suppository PR PRN (19:04)
[2017-04-04] MEDS ORDERED: Bisacodyl 5 MG TAB PO PRN (19:04)
[2017-04-04] MEDS ORDERED: Norepinephrine 8 MG/0.9% NS 250 ML IVPB PRN (19:06)
[2017-04-04] MEDS ORDERED: Vancomycin HCl 1 GM in Premix Bag 1 BAG IVPB SCH ×3 (19:15→20:00)
[2017-04-04] MEDS ORDERED: Vancomycin HCl 1.25 GM in Sodium Chloride 0.9% 250 ML 250 ML IVPB SCH (19:45)
[2017-04-04] MEDS ORDERED: Vancomycin HCl 500 MG in Sodium Chloride 0.9% 100 ML IVPB SCH (19:45)
[2017-04-04] MEDS ORDERED: Vancomycin HCl 750 MG in Sodium Chloride 0.9% 250 ML 250 ML IVPB SCH (19:45)
[2017-04-04] MEDS ORDERED: HOLD VANCOMYCIN FOR LEVEL >20 FS SCH (19:45)
--- NOTE | 2017-04-04 20:04 | RAD ---
SOFT TISSUE VIEWS OF THE NECK TWO VIEWS: 04/04/17 HISTORY: Left sided neck pain. The epiglottis is normal. Retropharyngeal soft tissues are normal. Patient is slightly rotated on thi s exam. Trachea is slightly deviated towards the right. This is felt to be on the basis of slight rot ation. IMPRESSION: Normal appearing epiglottis. No retropharyngeal soft tissue swelling. POS: [facility]
--- NOTE | 2017-04-04 20:24 | HP ---
PRIMARY CARE PHYSICIAN: Rachel Hernandez M.D. CHIEF COMPLAINT: Pain. HISTORY OF PRESENT ILLNESS: Ms. Rodriguez is a pleasant 66-year-old lady who was seen at [facility] on 04/04/2017. She initially presented to the emergency room complaining of pain. 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 She had rupture of dialysis fistula in the left upper extremity about 11 days ago. It required deanna ion, repair of aneurysm, closure of wound. She subsequently developed hemorrhage again on 04/01/2017 . She had surgery, including ligation of the left upper extremity fistula as well as placement of ne w fistula in the right upper extremity and was discharged home yesterday. During dialysis today, she had altered mental status. Her left upper extremity fistula site was asse ssed by Dr. Rucker from Nephrology. She reportedly had purulent drainage from the site. She was theref ore sent to the emergency room. She also reports pain over the left side of her neck, but is unable to describe it further. She denies any fevers or chills. REVIEW OF SYSTEMS: The following complete review of systems was negative, unless otherwise mentioned in the HPI or below: Constitutional: Weight loss or gain, ability to conduct usual activities. Skin: Rash, itching. Eyes: Double vision, pain. ENT/Mouth: Nose bleeding, neck stiffness, pain, tenderness. Cardiovascular: Palpitations, dyspnea on exertion, orthopnea. Respiratory: Shortness of breath, wheezing, cough, hemoptysis, fever or night sweats. Gastrointestinal: Poor appetite, abdominal pain, heartburn, nausea, vomiting, constipation, or diarr hea. Genitourinary: Urgency, frequency, dysuria, nocturia. Musculoskeletal: Pain, swelling. Neurologic/Psychiatric: Anxiety, depression. Allergy/Immunologic: Skin rash, bleeding tendency. PAST MEDICAL HISTORY: Significant for breast cancer, status post mastectomy; end-stage renal disease , on dialysis at [facility], on Friday, Friday, and Friday; hypertension; stable coronary art junito disease, followed by Dr. Eubanks; gastroesophageal reflux disease and recent problems with dialysi s fistula as described above. PAST SURGICAL HISTORY: Significant for hysterectomy; appendectomy; ileal conduit; coronary artery by pass graft; undergoing evaluation for renal transplant; left upper arm primary fistula in [place]; ri ght distal femur fracture, status post ORIF; septic arthritis, status post right knee incision and dr hampton, washout and exploration; right proximal humeral fracture ORIF; right mastectomy for cancer. CODE STATUS: I discussed her code status. She is FULL CODE. Her sister Lily Jansen is her medic al power of finance attorney. PSYCHIATRIC HISTORY: Significant for anxiety and depression. SOCIAL HISTORY: The patient denies tobacco use, alcohol use or recreational drug use. ALLERGIES: ATORVASTATIN, CEFTIN, DEMEROL, FURADANTIN, MEPERIDINE, and SIMVASTATIN. CURRENT MEDICATIONS: Include aspirin 81 mg daily; Coreg 12.5 mg on Friday, Friday, and Friday; pr avastatin 20 mg daily; Nae-Mimi 1 tablet daily, Colace 100 mg daily, and Prilosec 40 mg daily. PHYSICAL EXAMINATION: GENERAL: On examination, Ms. Rodriguez is awake and alert, not in acute distress. VITAL SIGNS: Blood pressure is 80/62, pulse is 93, she is breathing at rate of 21 and saturating 98% on 2 liters of oxygen. When she presented to the emergency room, she had a pulse of 101 and respira tory rate of 38. Her T-max in the emergency room was 102.8 degrees Fahrenheit rectally. EYES: No scleral icterus. No conjunctival pallor. ENT: Dry mucosal membranes, no oropharyngeal erythema or exudates. NECK: Supple, mild tenderness over the left supraclavicular region and left side of the neck, trache a is midline. RESPIRATORY: Accessory muscles of breathing are not active. Chest wall movements are symmetric bila terally. Lungs are clear to auscultation without wheeze, rhonchi or crepitations. CARDIOVASCULAR: S1 and S2 are heard, regular. Peripheral pulses palpable. No carotid bruit, no per icardial rub. ABDOMEN: Soft, nontender, bowel sounds heard. She has an ileal conduit in the right lower quadrant, no hepatomegaly, no splenomegaly. SKIN: No rashes or subcutaneous nodules. LYMPHATIC: No cervical lymphadenopathy. PSYCHIATRIC: Normal mood, normal affect, the patient is oriented to person, place, month and year, b ut not to date. NEUROLOGIC: Cranial nerves II-XII are intact. Deep tendon reflexes are 2+. MUSCULOSKELETAL: Power is 5/5 in all 4 extremities. LABORATORY DATA AND IMAGING: Ms. Rodriguez's labs and investigations were reviewed. I reviewed her electrocardiogram, which shows sinus tachycardia, no ST changes to suggest an acute coronary syndrom e. I also reviewed her chest x-ray, which does not show any pulmonary infiltrates. She has mild pul monary vascular congestion. She has leukocytosis with 14,400 white cells, of which 39% are bands and 57% are neutrophils, normocytic anemia with hemoglobin of 8.4, normal platelet count, normal electro lytes, elevated creatinine of 2.57, normal total bilirubin, elevated alkaline phosphatase of 170, nor mal AST, normal ALT and urinalysis that is positive for protein, bilirubin and small amount of leukoc yte esterase. ASSESSMENT AND PLAN: Ms. Rodriguez is a pleasant 66-year-old lady who was seen at [facility] on 04/04/2017. Her problem list includes: 1. Sepsis: She is presenting with sepsis, likely source of infection, urine or hematogenous or left upper extremity fistula site given the account of purulent discharge. [facility], including intravenous fluids and antibiotics. She has received vanco mycin, gentamicin, and Zosyn. I will continue her on vancomycin and Zosyn. We will request Infectio us Disease Service consultation. 2. Hypotension: The patient has been admitted to the Critical Care Unit. Emergency room physician has discussed her case with pulmonary critical care medicine specialist program evaluation consultant. If needed, we will start her on vasopressors. 3. End-stage renal disease on dialysis: Maintenance dialysis per Nephrology Service. 4. Hypertension: Monitor vital signs, titrate antihypertensives as needed. 5. Coronary artery disease: Stable. 6. Suspected infection of left upper extremity fistula. Await ID service recommendations. Many thanks for allowing me to participate in your patient's care. Please feel free to contact me wi th any questions or concerns. LEVEL OF RISK: High. LEVEL OF COMPLEXITY: High.
[2017-04-04] MEDS: Sodium Chloride 0.9% 1,000 ML IV SCH (21:35)
[2017-04-04] MEDS: Acetaminophen 325 MG TAB PO PRN (21:35)
[2017-04-05] MEDS: Piperacillin/Tazobactam 2.25 GM in Sodium Chloride 0.9% 100 ML IVPB SCH ×3 (02:21→18:04)
[2017-04-05] MEDS: Acetaminophen 325 MG TAB PO PRN ×3 (03:45→18:03)
[2017-04-05 04:24] LABS: Band 27 % (5-11); Hemoglobin 7.6 g/dL (12.0-16.0); Lymphocytes 18 % (21-51); MDiff Complete? YES; Mean Corpuscular HGB CONC 32.1 g/dL (32.0-36.0); Mean Corpuscular Hemoglobin 31.1 pg (27.0-31.0); Mean Corpuscular Volume 96.9 fl (81.0-99.0); Mean Platelet Volume 8.9 fL (7.4-10.4); Monocytes 3 % (0-10); Neutrophil 52 % (42-75); PLT Morphology Comment Appears Adequate; Platelet Count 154 thou/uL (130-400); RBC Distribution Width 15.1 % (11.5-14.5); Red Blood Cell (RBC) Count 2.45 mill/uL (4.20-5.40); White Blood Cell (WBC) Count 13.3 thou/uL (4.8-10.8)
[2017-04-05 04:26] LABS: Anion Gap 16 mmol/L (10-20); BUN (Urea Nitrogen) 22 mg/dL (9.8-20.1); Calc. Creatinine Clearance 17 mL/min (70-130); Calcium 8.4 mg/dL (7.8-10.44); Carbon Dioxide 25 mmol/L (23-31); Chloride 103 mmol/L (98-107); Estimated GFR-MDRD 13; Glucose 93 mg/dL (80-115); Potassium 4.5 mmol/L (3.5-5.1); Sodium 139 mmol/L (136-145)
[2017-04-05] MEDS: Sodium Chloride 0.9% 1,000 ML IV SCH ×2 (09:17→12:42)
--- NOTE | 2017-04-05 12:38 | PRG ---
DATE OF SERVICE: 04/05/2017 RENAL MEDICINE SUBJECTIVE: Ms. Rodriguez is a 66-year-old white female with ESRD and was readmitted for fever. Rene zamorano was also found to have wound dehiscence on her left upper extremity. Some pus was noted. She was cultured at the dialysis unit and was given IV vancomycin and IV gentamicin. Currently, she is recei ving IV Zosyn. No new complaints today. She is feeling better. PHYSICAL EXAMINATION: VITAL SIGNS: Blood pressure 110/60, heart rate 88, respiratory rate 19, pulse ox 95%, temperature 98 .5. GENERAL: Awake, alert, comfortable, not in distress. SKIN: Adequate turgor. HEENT: Slightly pale conjunctivae, anicteric sclerae. NECK: No neck mass, no carotid bruits, no JVD. CHEST: No deformities. LUNGS: Clear breath sounds. No wheezing, no crackles. HEART: Normal sinus rhythm. No murmur, no gallops, no rubs. ABDOMEN: Globular, soft, and nontender, no masses. EXTREMITIES: No edema, no deformities. Left upper extremity dressing noted, right AV fistula, posit tyrel for bruit. She has a left IJ catheter. MEDICATIONS: Medications of 04/05/2017 was reviewed. LABORATORY DATA: Laboratories of 04/05/2017; white count 13.3, hemoglobin 7.6. Sodium 139, potassiu m 4.5, chloride 103, carbon dioxide 25, BUN 22, creatinine 3.56, glucose 93, and calcium 8.4. Blood culture no growth to date. Left arm preliminary shows Staph aureus. Vancomycin level was noted at 6.0 and gentamicin is 1.5. ASSESSMENT AND PLAN: 1. Infected left upper extremity wound - patient is status post vancomycin and gentamicin. She is c urrently on Zosyn. ID consult has been done by Dr. Block. 2. Anemia. The patient to continue with her Epogen. My plan is to give her Epogen 10,000 units sub cu every week. We will discontinue IV Epogen. 3. End-stage renal disease, stable. We will continue current on Friday, Friday, Friday hemodialy sis regimen. There is no indication for any dialytic intervention today.
--- NOTE | 2017-04-05 14:30 | CON ---
DATE OF CONSULTATION: 04/05/2017 HISTORY OF PRESENT ILLNESS: A 66-year-old female with multiple medical problems, admitted with sepsi s to the ICU and hypertension. Though, she is clearly not hypertensive this morning. Her blood pres sure is 130/70, pulse rate of 80. She was in dialysis yesterday and apparently had issue with access . ER physician told me she was given large volume of fluids in the ER. She had a ruptured dialysis fistula on the left lower extremity 4 days ago and had surgery. She was in the dialysis center today with generalized pain, cough, shortness of breath, and low grade fever. Fistula leaking again and was removed. Discharged to home today and became altered mental status and asked to come to the hospital. This morning, she is complaining of severe pain, cough, but no shortness of breath. Extensive past medical history, although medical records pertinent for coronary artery disease, myoca rdial infarction, reflux, hypertension, chronic renal failure, sepsis, musculoskeletal osteoporosis, renal failure. PAST SURGICAL HISTORY: Surgeries including multiple access, some of them failed. Previous multiple central lines, right mastectomy, and cardiac catheterization. ALLERGIES: She had allergies multiple including CEPHALOSPORIN, CEFTIN, DEMEROL, and NITROFURANTOIN. MEDICATIONS FROM HOME: Tramadol, zolpidem, pravastatin, omeprazole, midodrine, , Celexa 20, Cor eg 12.5, aspirin, and Tylenol. SOCIAL HISTORY: Never smoked. No alcohol abuse. No drug abuse. FAMILY HISTORY: Unremarkable. REVIEW OF SYSTEMS: Otherwise, 10-point negative. All x-ray reports were personally reviewed. She is no longer hypertensive. PHYSICAL EXAMINATION: VITAL SIGNS: Blood pressure 130/80, pulse rate 80, sats 98% on room air. CHEST: Reveals no wheezing or crackles. CARDIAC: Normal S1 and S2. No gallops. ABDOMEN: Soft, no masses. LABORATORY DATA AND IMAGING DATA: White count 13,000, hemoglobin and hematocrit 7 and 30, platelet c ount of 254, creatinine 3.5. X-ray was normal. She had a CT done of the brain for altered mental status. No acute changes were seen. IMPRESSION: Chronic renal failure, hypertension, probably Staph sepsis with multiple access issues, coronary artery disease. She is no longer hypertensive. She is just transferred to the medical floor, continue antibiotics, v ancomycin, and Zosyn and deescalate once we get cultures back. We will follow while in the ICU. This is a 40 minutes critical care time.
--- NOTE | 2017-04-05 18:37 | PDOC.PN ---
- Subjective Encounter Start Date: 04/05/17 Encounter Start Time: 10:20 Pt seen for followup re: bacteremia. Denies chest pain, shortness of breath or fevers. - Objective Resuscitation Status: Resuscitation Status FULL:Full Resuscitation MAR Reviewed: Yes Vital Signs & Weight: Vital Signs (12 hours) Temp Pulse Resp BP Pulse Ox 04/05/17 15:00 97.9 F 87 20 91/52 L 95 04/05/17 13:35 75 18 95 04/05/17 10:51 98.5 F 75 15 04/05/17 08:00 98.5 F 75 15 99 Weight Admit Weight 150 lb Weight 150 lb 12.739 oz Most Recent Monitor Data Heart Rate from ECG 88 NIBP 110/60 NIBP BP-Mean 99 Respiration from ECG 19 SpO2 90 I&O: 04/04/17 04/05/17 04/06/17 06:59 06:59 06:59 Intake Total 1482 Output Total 75 Balance 1407 Result Diagrams: 04/05/17 03:31 04/05/17 03:31 Phys Exam - Physical Examination Constitutional: NAD HEENT: PERRLA, moist MMs, sclera anicteric, oral pharynx no lesions Neck: no nodes, no JVD, supple, full ROM Respiratory: no wheezing, no rales, no rhonchi, clear to auscultation bilateral Cardiovascular: RRR, no rub Gastrointestinal: soft, non-tender, no distention, positive bowel sounds Musculoskeletal: pulses present Neurological: moves all 4 limbs Psychiatric: normal affect Deviation from normal: LUE dressing Dx/Plan (1) Bacteremia Code(s): R78.81 - BACTEREMIA Status: Acute (2) Anxiety and depression Code(s): F41.9 - ANXIETY DISORDER, UNSPECIFIED; F32.9 - MAJOR DEPRESSIVE DISORDER, SINGLE EPISODE, UNSPECIFIED Status: Chronic Comment: COntinue hoome medications. Anxious but denies SI/HI. Lorazepam PRN for anxiety. (3) CAD (coronary artery disease), [place] coronary artery Code(s): I25.10 - ATHSCL HEART DISEASE OF [place] CORONARY ARTERY W/O ANG PCTRS Status: Chronic Qualifiers: [place] vs. transplanted heart: [place] heart Associated angina: without angina Qualified Code(s): I25.10 - Atherosclerotic heart disease of [place] coronary artery without angina pectoris Comment: Stable, chest pain free. (4) ESRD (end stage renal disease) on dialysis Code(s): N18.6 - END STAGE RENAL DISEASE; Z99.2 - DEPENDENCE ON RENAL DIALYSIS Status: Chronic Comment: Deena rodriguez placed 04/02. Also has a triple lumen catheter. Dialysis per nephrology. (5) Hypertension Code(s): I10 - ESSENTIAL (PRIMARY) HYPERTENSION Status: Chronic Qualifiers: Hypertension type: essential hypertension Qualified Code(s): I10 - Essential (primary) hypertension Comment: HAs had borderline BP but asymptomatic. Holding parameters on Coreg instituted- should meet with cardiology and consider d/c medication, especially as she's on midodrine.. Continue midodrine. Will monitor. - Plan plan discussed w/ family, continue antibiotics, out of bed/ambulate * . Continue IV antibiotics as below. Wound care consulted. ID consult pending. Review of Systems - Review of Systems Constitutional: negative: fever, chills, sweats, weakness, malaise Respiratory: negative: Cough, Dry, Shortness of Breath, Hemoptysis, SOB with Excertion, Pleuritic Pain, Sputum, Wheezing Cardiovascular: negative: chest pain, palpitations, orthopnea, paroxysmal nocturnal dyspnea, edema, light headedness Gastrointestinal: negative: Nausea, Vomiting, Abdominal Pain, Diarrhea, Constipation, Melena, Hematochezia Genitourinary: negative: Dysuria, Frequency, Incontinence, Hematuria, Retention - Medications/Allergies Allergies/Adverse Reactions: Allergies Allergy/AdvReac Type Severity Reaction Status Date / Time atorvastatin calcium Allergy Verified 04/04/17 22:29 [From Lipitor] cefuroxime axetil Allergy Verified 04/04/17 22:29 [From Ceftin] meperidine HCl [From Demerol] Allergy Verified 04/04/17 22:29 nitrofurantoin Allergy Verified 04/04/17 22:29 [From Macrodantin] simvastatin [From Zocor] Allergy Verified 04/04/17 22:29 Medications: Current Medications Acetaminophen (Tylenol) 650 mg TX Q4H PRN PRN Reason: Headache/Fever or Pain Acetaminophen (Tylenol) 650 mg PO Q6H PRN PRN Reason: Headache/Fever or Pain Last Admin: 04/05/17 18:03 Dose: 650 mg Albuterol/Ipratropium (Duoneb) 3 ml NEB [id number] PRN PRN Reason: SOB &/or Wheezing Last Admin: 04/05/17 13:35 Dose: 3 ml Bisacodyl (Dulcolax) 10 mg PO DAILYPRN PRN PRN Reason: Constipation Epoetin Billy (Procrit) 10,000 units SC Q7D@1400 FERNANDO Piperacillin Sod/Tazobactam (Sod 2.25 gm/ Sodium Chloride) 100 mls @ 200 mls/ hr IVPB 0200,1000,1800 [facility] Last Admin: 04/05/17 18:04 Dose: 100 mls Norepinephrine Bitartrate (Levophed) 250 mls @ 0 mls/hr IVPB PRN PRN; Protocol ; Titrate PRN Reason: To maintain MAP > 65 Sodium Chloride (Normal Saline 0.9%) 1,000 mls @ 75 mls/hr IV .[id number] [facility] Last Admin: 04/05/17 12:42 Dose: 1,000 mls Vancomycin HCl 1.25 gm/ Sodium (Chloride) 250 mls @ 166.667 mls/hr IVPB WILLCALL [facility] Vancomycin HCl 1 gm/ Device 200 mls @ 200 mls/hr IVPB WILLCALL [facility] Vancomycin HCl 750 mg/ Sodium (Chloride) 250 mls @ 250 mls/hr IVPB WILLCALL [facility] Vancomycin HCl 500 mg/ Sodium (Chloride) 100 mls @ 100 mls/hr IVPB WILLCALL [facility] Miscellaneous Medication (Pharmacy To Dose) 1 each IVPB PRN PRN PRN Reason: Pharmacy to dose Hold Vancomycin For (Level >20) 0 each FS .AT DIALYSIS [facility]
[2017-04-05] MEDS: Pravastatin Sodium 20 MG TAB PO SCH (21:38)
[2017-04-05] MEDS: Epoetin (ESRD) 10,000 UNITS/ML VIAL SC SCH (21:45)
[2017-04-05] MEDS ORDERED: Zolpidem Tartrate 5 MG TAB PO SCH (22:15)
[2017-04-06] MEDS: Acetaminophen 325 MG TAB PO PRN ×2 (00:11→13:43)
[2017-04-06] MEDS ORDERED: Lorazepam 1 MG TAB PO SCH (00:30)
[2017-04-06] MEDS: Piperacillin/Tazobactam 2.25 GM in Sodium Chloride 0.9% 100 ML IVPB SCH ×2 (02:34→09:53)
[2017-04-06 03:39] LABS: #Eosinphils 0.1 thou/uL (0.0-0.7); #Lymphocytes 1.5 thou/uL (1.20-3.40); #Monocytes 0.7 thou/uL (0.11-0.59); #Neutrophils 12.1 thou/uL (1.40-6.50); %Basophils 0.2 % (0.0-1.0); %Eosinophils 0.9 % (0.0-10.0); %Lymphocytes 10.3 % (21.0-51.0); %Neutrophils 83.6 % (42.0-75.0); Hemoglobin 8.1 g/dL (12.0-16.0); Mean Corpuscular HGB CONC 32.8 g/dL (32.0-36.0); Mean Corpuscular Hemoglobin 31.8 pg (27.0-31.0); Platelet Count 192 thou/uL (130-400); RBC Distribution Width 15.4 % (11.5-14.5); Red Blood Cell (RBC) Count 2.54 mill/uL (4.20-5.40); White Blood Cell (WBC) Count 14.4 thou/uL (4.8-10.8)
[2017-04-06 04:00] LABS: Anion Gap 17 mmol/L (10-20); BUN (Urea Nitrogen) 38 mg/dL (9.8-20.1); Calc. Creatinine Clearance 12 mL/min (70-130); Calcium 8.3 mg/dL (7.8-10.44); Carbon Dioxide 22 mmol/L (23-31); Chloride 99 mmol/L (98-107); Estimated GFR-MDRD 9; Glucose 100 mg/dL (80-115); Potassium 3.6 mmol/L (3.5-5.1); Sodium 134 mmol/L (136-145)
[2017-04-06] MEDS: Sodium Chloride 0.9% 1,000 ML IV SCH (05:50)
[2017-04-06] MEDS: Docusate 100 MG CAP PO SCH (09:51)
[2017-04-06] MEDS: Escitalopram Oxalate 20 mg Tablet PO SCH (09:52)
[2017-04-06] MEDS: Cinacalcet HCl 30 MG TAB PO SCH (09:53)
[2017-04-06] MEDS: Loratadine 10 MG TAB PO SCH (09:53)
[2017-04-06] MEDS: Aspirin 81 mg Enteric Coated Tablet PO SCH (09:53)
--- NOTE | 2017-04-06 10:08 | RAD ---
3 VIEWS LEFT HAND: Date: 04/06/17 HISTORY: Severe pain and swelling left hand. FINDINGS: There is a remote fracture deformity involving the left distal radial metaphysis, with remote fractur e deformity involving the distal fibula as well. There is no acute fracture or dislocation seen. Diff use osteopenia is present. There is subcutaneous soft tissue swelling seen at the dorsal aspect of th e hand. No other findings. IMPRESSION: 1. Subcutaneous soft tissue swelling dorsal aspect of the hand without evidence of an acute osseous abnormality. 2. Remote healed fracture and deformities involving the distal left radius and ulna. POS: [facility]
--- NOTE | 2017-04-06 10:10 | RAD ---
PORTABLE AP CHEST: Date: 04/06/17 HISTORY: Respiratory distress. COMPARISON: 04/04/17. FINDINGS: A tunneled left internal jugular vein hemodialysis catheter remains in place. Postsurgical changes re lated to CABG are again noted. Cardiac silhouette is magnified by projection, but is overall stable i n size. Pulmonary vasculature is borderline increased. No focal consolidation or pleural fluid is see n. Surgical clips again overlie the right axillary region. IMPRESSION: Cardiac silhouette is at the upper limits of normal to borderline enlarged with mild pulmonary vascul ar congestion present. A component of mild CHF is a possibility. Clinical correlation is recommended. POS: [facility]
--- NOTE | 2017-04-06 11:48 | PRG ---
DATE OF SERVICE: 04/06/2017 SUBJECTIVE: The patient is seen and examined at the bedside. She is very drowsy. I am able to wake her up, but she falls asleep very quickly. She complains about the left hand pain; when I touch her left hand that is quite severe, she tries to withdraw the hand. Apparently, there was some evidence that there was some pus coming out from around the catheter area on the left upper chest. OBJECTIVE: VITAL SIGNS: Blood pressure is 111/53, pulse is 94, respiratory rate is 20-36, temperature is 97.8, O2 saturation is 96% that is on the room air. HEENT: Her head is atraumatic, normocephalic. She follows my commands on and off. Her skin looks p amanda. She is still tachypneic and her sclerae nonicteric. Pupils somewhat dilated approximately 3-4 mm, responding to light properly. NECK: Supple. LUNGS: Breath sounds diminished at both bases with few crackles bilaterally. HEART: S1 and S2 normal, no S3, no S4. ABDOMEN: Soft, nontender, bowel sounds present, no organomegaly. EXTREMITIES: No clubbing, cyanosis, or edema. There is a left upper chest area catheter for dialysi s. I do not see any pus coming out from the area. NEUROLOGICAL EXAMINATION: She is very drowsy, arousable. She tries to follow my commands, but she f alls short. She moves all 4 extremities, but there is left hand pain on movement and the swelling of the left hand is significant, approximately 2+. There is no redness. Range of motion is very limit ed secondary to the pain in the left wrist. LABORATORY DATA: White count of 14.4, hemoglobin 8.1, hematocrit 24.6, platelet count is 192. Sodiu m of 134, potassium 3.6, chloride 99, CO2 of 22, BUN 38, creatinine 4.76, calcium 8.3. Microbiology shows blood cultures positive for methicillin-resistant Staphylococcus aureus and urine culture is po sitive for Escherichia coli. IMPRESSION: 1. Methicillin-resistant Staphylococcus aureus sepsis. 2. Altered mental status, which could be secondary to current sepsis on the top of her baseline. 3. Coronary artery disease, stable. 4. Left hand pain, unclear etiology. 5. End-stage renal disease, on dialysis. 6. Hypertension, controlled. 7. Tachypnea of unclear etiology. PLAN: Obtain the chest x-ray, obtain the ABGs, obtain the left hand x-ray. Nephrology was consulted . We are waiting for Dr. Valdez' ID consult and Dr. Morris, consult. Ambien is discontinued. I w ill move her to [facility] for better close monitoring and would continue her vancomycin and Zosyn for now.
--- NOTE | 2017-04-06 14:36 | PRG ---
DATE OF SERVICE: 04/06/2017 SUBJECTIVE: Clarissa Rodriguez is a 66-year-old female who was transferred last night out of the ICU, she appears somewhat encephalopathic. Blood culture is growing MRSA. Urine is growing E. coli. OBJECTIVE: VITAL SIGNS: Stable. Sats 90% on room air, respirations are 36, temperature 97, blood pressure 110/ 53. CHEST: Decreased breath sounds, no wheezing. CARDIAC: Normal S1, S2. LABORATORY DATA: White count 14,000, H&H 8 and 24 , platelet count is 90, creatinine 4.7. IMPRESSION: 1. Methicillin-resistant Staphylococcus aureus sepsis, multiple access. 2. Renal failure with urinary tract infection. PLAN: She is on Zosyn, vancomycin, this probably should cover both urinary tract infection and methi cillin-resistant Staphylococcus aureus sepsis. She is being dialyzed. Continue supportive care.
[2017-04-06 15:42] LABS: Actual Bicarbonate (HCO3a) 21.8 mEq/L (22-26); Base Excess (BEa) -2.3 mEq/L (0 (+/-) 2.5); Carboxyhemoglobin (COHb) 1.7 gm% (0.0-3.0); Hematocrit-ABG 27.8 % (36.0-47.0); Hemoglobin (Hb) 7.6 g/dL (12.0-16.0); O2 Tension (PaO2) 71.8 mmHg (80.0-100.0); pH, Arterial 7.43 (7.35-7.45)
[2017-04-06 15:43] LABS: Calcium, Ionized 1.1 mmol/L (1.12-1.30); Potassium - ABG Lab 3.5 mmol/L (3.70-5.30); Puncture Site RRA
[2017-04-06] MEDS ORDERED: Vancomycin HCl 1 GM in Premix Bag 1 BAG IVPB SCH (19:15)
[2017-04-06] MEDS: Pravastatin Sodium 20 MG TAB PO SCH (20:47)
[2017-04-06] MEDS ORDERED: Zolpidem Tartrate 5 MG TAB PO SCH (21:00)
--- NOTE | 2017-04-06 21:25 | CON ---
DATE OF CONSULTATION: 04/06/2017 REASON FOR CONSULTATION: Encephalopathy, possible sepsis and breakdown of left AV fistula wound site. 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 Patient had a washout and was transitioned to vancomycin and ciprofloxacin. Cultures from the site were negative. After that in 10/10, she was admitted with SVT and had an ablation done with EP consultation and in 10/2016, she sustained a fall with right femoral neck fracture status post hardware removal and right hip bipolar hemiarthroplasty by Dr. Herron. At the end of 02/2017, she was admitted with hemorrhage from an aneurysmal dilatation segment of first cephalic vein, basilic vein fistula in the left upper extremity. She had a femoral vein central line placed. She had thrombosis of the fistula and thrombectomy performed with revision of the fistula. Then, in 04/01, she was admitted with bleeding from the left upper extremity dialysis fistula. Central line was placed in the groin. Hemodialysis catheter was placed as well and the left arm fistula was ligated. On the day of admission at this time, she would develop altered mental status and purulent drainage was noticed from the left upper extremity previous fistula site and she was transferred to the emergency room. Initial findings included a BP 80/62, pulse 93, respiratory rate 21, O2 sat 98%. Temperature max was 102.8. Pertinent findings on physical exam, the neck was supple. There was tenderness in the left supraclavicular region at the site of the recent hemodialysis catheter placement. The lungs were clear to auscultation and the heart exam showed regular rate without murmurs. Abdomen, soft and nontender. INITIAL LABORATORY FINDINGS: White cell count 14, hemoglobin 8.4, platelets 156 with 39% bands. Sodium 137, creatinine 2.57 and lactic acid 1.0, AST 28, ALT 24, alkaline phosphatase 170 with albumin 2.8. Urinalysis with 4+ bacteria and 4-6 WBCs. Microbiology: We have MRSA retrieved from the arm and Staphylococcus aureus from one set of venous blood culture thus far and this is identified by [employer] nucleic acid test is MRSA. Currently, Ms. Rodriguez is quite drowsy. She is arousable and recognizes me, but falls asleep right away, has a hard time following commands because of that. She has tenderness in the left side of the neck. No headaches, no visual symptoms or abdominal pain, no dyspnea, a little bit of low back pain and no diarrhea. PAST MEDICAL HISTORY: Breast cancer in remission; chronic lymphedema, left upper extremity; congenital abnormalities, urinary tract with eventual ileal conduit and development of end-stage renal disease, coronary artery disease with prior [place], bypass graft surgery, aortic valve replacement and recent complications of AV fistula in the left upper extremity with bleeding requiring 2 interventions, placement of a new tunneled hemodialysis catheter. She had temporary groin catheters as well. PAST SURGICAL HISTORY: As above. Also, with a right hemiarthroplasty for management of hip fracture. ALLERGIES: ATORVASTATIN, CEFEPIME, MEPERIDINE, and ZOCOR. CURRENT MEDICATIONS: Include Tylenol, DuoNeb, Ecotrin, Dulcolax, Coreg, Sensipar, Colace, Procrit, Lexapro, Claritin, ProAmatine, vancomycin, sliding scale, had been on Levophed, Zosyn. PHYSICAL EXAMINATION: VITAL SIGNS: T-max 98.5, blood pressure 101/45, pulse 88-106, respirations 16, O2 sat 93-95%. SKIN: Shows the left arm wound site with dehiscence of the incision, a little bit of yellow tissue at the base at the distal end with some bloody dried up tissue. The more proximal was more well approximated, but still dehisced mild erythema. The patient has a IV access in the right foot. No lymphadenopathy. HEENT: Ocular movements are conjugate. Pale conjunctivae. Oral cavity very dry, quite a few teeth in place with marked decay. NECK: Supple. No jugular venous distention. LUNGS: With symmetric air entry with scattered expiratory rhonchi and wheezing. HEART: S1, S2 with a soft aortic murmur. ABDOMEN: Soft. Not distended or tender. No ascites. The patient has an ileal conduit on the right side, is still with some urine in it. No perineal abnormalities. EXTREMITIES: No joint inflammatory process noted. Pulses are 1+ in dorsalis pedis. There is 1+ edema in lower extremities, quite symmetric. She is able to move extremities, but she is diffusely weak. Patient is obviously encephalopathic with drowsiness. She is arousable, but falls asleep immediately and will follow some commands. LABORATORY DATA: White cell count is down to 14.4, hemoglobin 8.1 and platelets 192 with 82% neutrophils and microbiology as noted above. Reports include a chest x-ray from today which shows cardiac silhouette in the upper limits of normal. Mild vascular congestion and hand x-ray with soft tissue swelling dorsal aspect of the hand, but no acute osseous abnormality. There is a soft tissue neck x-ray with normal appearing epiglottis. ASSESSMENT AND PLAN: 1. End-stage renal disease from prior urological complications related to congenital urological abnormalities. 2. End-stage renal disease on hemodialysis through a catheter. 3. Recent complications of AV fistula in the left upper extremity with hemorrhage. 4. Dehiscence of the wound with possible if not likely infection by methicillin -resistant Staphylococcus aureus at the site. 5. Methicillin-resistant Staphylococcus aureus bacteremia. 6. Artificial heart valve. 7. Neck pain associated with recent catheter. DISCUSSION: Patient has MRSA bacteremia and could have colonization of the hemodialysis catheter, may have also other sites of involvement including the aortic valve. The neck area needs to be further monitored for possible development of complications including C-spine infection. The lumbar spine needs to be monitored as well. The right hip joint will have to be monitored for complications. Continue vancomycin and sliding scale, will try to keep the trough above 15 mcg and discontinue Zosyn. Will need 2d echo if not ordered yet. High risk for poor outcome. MTDD
--- NOTE | 2017-04-06 21:56 | PRG ---
DATE OF SERVICE: 04/06/2017 RENAL MEDICINE SUBJECTIVE: Ms. Rodriguez is a 66-year-old white female who was admitted for fever. Her dialysis c atheter around the exit site was noted to pass/discharge. She also had initial pass noted around her older left upper extremity AV fistula. She is currently on IV antibiotics. Dr. Morris has been not ified. He will be seeing the patient first thing in the morning. Due to the exit site discharge, th e plan is most likely to remove the dialysis catheter after dialysis in a.m. I have instructed the p keagan to do her first thing in the morning, so that catheter can be removed after dialysis. This pa tient may need to be off any dialysis catheter for the next 1-2 days. The patient feels tired today. Denies any chest pain, shortness of breath. OBJECTIVE: VITAL SIGNS: Blood pressure is 144/52, heart rate 88, respiratory rate 24, temperature 98.4, pulse o x is 96%. GENERAL: Noted to be awake, alert, comfortable, not in distress. SKIN: Adequate turgor. HEENT: She has a pinkish conjunctivae, anicteric sclerae. NECK: No neck mass, no carotid bruits, no JVD. CHEST: No deformities. LUNGS: Clear breath sounds. No wheezing. HEART: Normal sinus rhythm. No murmur, no gallops, no rubs. ABDOMEN: Globular, soft, nontender, positive for ileal conduit. EXTREMITIES: No edema, no deformities. Left upper extremity dressing noted. MEDICATIONS: Of 04/06/2017 was reviewed. LABORATORY DATA: Of 04/06/2017, white count 14.4, hemoglobin 8.1. Sodium 134, potassium 3.6, chlori de 99, carbon dioxide 22, BUN 38, creatinine 4.76, calcium is 8.3. We will be redosing vancomycin 1 gram tonight if this has not been given yet. ASSESSMENT AND PLAN: 1. Methicillin-resistant Staphylococcus aureus bacteremia -- continue IV vancomycin, recheck vancomy jagdish level in a.m., vancomycin 1 gram IV to be given tonight. 2. Urinary tract infection -- The patient is on IV Zosyn. 3. End-stage renal disease, stable. Continue Friday, Friday, Friday dialysis. Surgery has been notified -- Dr. Morris regarding possible withdrawal of this cuffed dialysis catheter. The plan is t o dialyze her first thing in the morning and have the catheter removed by the surgeon. Overall, agree with current management.
[2017-04-07] MEDS: Sodium Chloride 0.9% 1,000 ML IV SCH ×2 (01:00→13:24)
[2017-04-07 04:30] LABS: #Basophils 0.1 thou/uL (0.0-0.2); #Eosinphils 0.3 thou/uL (0.0-0.7); #Lymphocytes 1.4 thou/uL (1.20-3.40); #Monocytes 0.8 thou/uL (0.11-0.59); #Neutrophils 12.5 thou/uL (1.40-6.50); %Basophils 0.5 % (0.0-1.0); %Eosinophils 1.7 % (0.0-10.0); %Lymphocytes 9.2 % (21.0-51.0); %Neutrophils 83.7 % (42.0-75.0); Mean Corpuscular HGB CONC 31.1 g/dL (32.0-36.0); Mean Corpuscular Hemoglobin 30.5 pg (27.0-31.0); Mean Platelet Volume 8.9 fL (7.4-10.4); Platelet Count 264 thou/uL (130-400); RBC Distribution Width 15.4 % (11.5-14.5); Red Blood Cell (RBC) Count 2.62 mill/uL (4.20-5.40); White Blood Cell (WBC) Count 14.9 thou/uL (4.8-10.8)
[2017-04-07 04:36] LABS: Anion Gap 18 mmol/L (10-20); BUN (Urea Nitrogen) 47 mg/dL (9.8-20.1); Calc. Creatinine Clearance 11 mL/min (70-130); Calcium 8.3 mg/dL (7.8-10.44); Carbon Dioxide 19 mmol/L (23-31); Chloride 101 mmol/L (98-107); Estimated GFR-MDRD 8; Glucose 67 mg/dL (80-115); Potassium 4.1 mmol/L (3.5-5.1); Sodium 134 mmol/L (136-145)
--- NOTE | 2017-04-07 09:16 | PRG ---
DATE OF SERVICE: 04/07/2017 This morning she is better, less short of breath. She is still somewhat encephalopathic. Still comp laining of nausea. PHYSICAL EXAMINATION: VITAL SIGNS: Sats are 94% on 2 liters, respirations 18, temperature is 99, blood pressure 130/86. CHEST: Chest revealed decreased breath sounds, no wheezing. CARDIAC: Normal S1-S2. ABDOMEN: Soft. No masses. LABORATORY DATA: White count 14,000, H&H 8 and 25, platelet count is normal. Blood gas was ordered by the hospitalist; pO2 of 71, pCO2 57.43, creatinine 5.4. IMPRESSION: 1. Encephalopathy, metabolic. 2. Sepsis. 3. Renal failure. PLAN: Antibiotics as per Infectious Disease. Access issues regarding surgery. Pulmonary-goetz, cont inue to watch her while she is in the IMCU, when she is transferred out will follow at a distance. P lease call if needed.
[2017-04-07] MEDS ORDERED: Sodium Chloride 0.9% 250 ML 200 ML IVPB PRN (09:30)
--- NOTE | 2017-04-07 09:34 | PRG ---
DATE OF SERVICE: 04/07/2017 SERVICE: Renal Medicine. SUBJECTIVE: Ms. Rodriguez is a 66-year-old white female with ESRD, admitted for fever and chills. She also had some discharge from the left upper extremity surgical site as well from her cuf fed dialysis catheter. She is empirically being treated with IV vancomycin and Zosyn. Blood culture s showed MRSA. She received a gram of vancomycin yesterday and her vancomycin level this morning was noted at 21. No other complaints. Denies any chest pain or shortness of breath. She is currently being dialyzed. I am at the bedside supervising her dialysis. OBJECTIVE: VITAL SIGNS: Blood pressure is 138/66, heart rate 75, respiratory rate 22, temperature 99.2, pulse o x 95%. GENERAL: Noted to be awake, alert, supine, comfortable, not in distress. SKIN: Adequate turgor. HEENT: She has pinkish conjunctivae, anicteric sclerae. NECK: No neck mass, no carotid bruits, no JVD. CHEST: No deformities. LUNGS: Clear breath sounds. HEART: Normal sinus rhythm. No murmur, no gallops, no rubs. ABDOMEN: Globular, soft, nontender, no masses. EXTREMITIES: No edema, no deformities. MEDICATIONS: Of 04/07/2017 was reviewed. LABORATORY DATA: Of 04/07/2017, white count was noted at 14.9, hemoglobin 8, sodium 134, potassium 4 .1, chloride 101, carbon dioxide 19, BUN 47, creatinine 5.49, calcium 8.3. Blood culture - positive for MRSA. ASSESSMENT AND PLAN: 1. Methicillin-resistant Staphylococcus aureus bacteremia - patient currently on IV vancomycin. Ple ase note, she has also been started previously on Zosyn, but the Zosyn has now been discontinued. We will also be consulting Surgery for possible removal and change of the dialysis catheter due to the possible pus around the exit site. 2. End-stage renal disease, stable. Tolerating current hemodialysis regimen. Continue Friday, esd, Friday dialysis. 3. Anemia, on weekly Epogen, p.r.n. blood transfusion for hemoglobin less than 7. We will recheck b asic metabolic panel and CBC, vancomycin level in a.m.
[2017-04-07] MEDS: Cinacalcet HCl 30 MG TAB PO SCH (10:39)
[2017-04-07] MEDS: Escitalopram Oxalate 20 mg Tablet PO SCH (10:39)
[2017-04-07] MEDS: Loratadine 10 MG TAB PO SCH (10:39)
[2017-04-07] MEDS: Carvedilol 6.25 MG TAB PO SCH (10:39)
[2017-04-07] MEDS: Docusate 100 MG CAP PO SCH (10:39)
[2017-04-07] MEDS: Aspirin 81 mg Enteric Coated Tablet PO SCH (10:39)
[2017-04-07] MEDS: traMADol HCl 50 MG TAB PO PRN (10:40)
--- NOTE | 2017-04-07 11:40 | PRG ---
DATE OF SERVICE: 04/07/2017 Ms. Rodriguez was readmitted over the weekend for a fever. Since admission, she has not had another fever. Prior to being admitted, she had been started on intravenous antibiotics and vancomycin duri ng dialysis. Patient has a right arm primary fistula placed on 04/02/2017. This wound is well heale d, no evidence of infection. She has a good thrill and bruit in her right arm. Patient on 8 had a left femoral vein triple lumen catheter placed and revision of her left upper arm dialysis fi stula with ligation due to recurrent bleeding in left internal jugular cuffed tunnel dialysis cathete r. When I looked at the right internal jugular vein during that operation, there was no vein seen by ultrasound occluded from previous surgeries and access. Patient has left internal jugular cuffed tu nnel dialysis catheter demonstrates some purulent drainage from around it and there is redness over t he tunnel site. The catheter has been advanced out of the wound removing the cuff and it is no longe r a cuffed tunneled catheter. Patient has 30-40 minutes more left arm dialysis. Patient's blood cul tures have remained negative to date. Her left upper arm wound from ligation of her fistula has dehi sced and this is not unexpected as it was very edematous and with two operations related to hemorrhag e from her fistula, the wound was partially closed. Currently, the wound looks good. There is no ev idence of infection. The wound is dehisced and the ana maria are not providing any benefit and will as k wound care to remove her ana maria from her left arm. Continue wound care, normal saline, wet to dry dressings. Patient's wound in left arm is not responsible for her fevers. Etiologies of her fevers on admission is uncertain. Chest x-ray on admission revealed mild CHF and pulmonary congestion. At this point, would remove her left IJ cuffed tunneled catheter today after dialysis and plan a new ca theter either in her IJ or femoral vein on Friday. The patient has a right arm fistula. At the time of formation, fistula veins were fibrotic and she w ill need a transposition fistula in the future due to her obesity and the basilic vein utilized for f istula with occluded cephalic vein, right upper arm. This will be performed in the next 3 or 4 weeks if the fistula maintain its patency and mature as I expected. Again, the source of the fevers is un certain. Her cultures are negative. The right arm is not clinically infected and she has a northway v ein fistula formed without prosthetic. The left arm has a northway vein fistula that has been ligated and the wound looks good. There is no evidence of infection and not the etiology for her fevers. Fr om a surgical standpoint, the patient could be discharged Friday after placement of a new hemodial ysis catheter and after dialysis on Friday. She would follow up in my office in 3-4 weeks.
[2017-04-07] MEDS: Ondansetron PF 4 MG/2 ML Vial IVP PRN ×2 (12:13→20:22)
[2017-04-07] MEDS: Midodrine HCl 5 MG TAB PO SCH ×2 (12:14→14:18)
--- NOTE | 2017-04-07 13:26 | PQF ---
DATE: 04-07-17 ATTN: DR. SARAH FISCHER Please exercise your independent, professional judgment in responding to the clarification form. Clinical indicators are provided on the bottom of this form for your review Please check appropriate box(es): [ X ] Sepsis due to: ( UTI WITH UROSTOMY, LEFT UPPER ARM FISTULA ARM INFECTION , etc.) Due to: [X ] Device (please specify) Hemodialysis catheter [ ] Implant [ ] Graft [ ] Infusion [ ] Severe sepsis with acute organ dysfunction of: (Examples: encephalopathy, acute kidney failure, other) [ ] Other diagnosis/ source [ ] Unable to determine In addition, please specify: Present on Admission (POA): [ X] Yes [ ] No [ ] Unable to determine For continuity of documentation, please document condition throughout progress notes and discharge summary. Thank You. CLINICAL INDICATORS - SIGNS / SYMPTOMS / LABS ER DOCUMENTATION: SEPSIS, INFECTION LEFT FISTULA SITE H&P: SEPSIS. SHE PRESENTING WITH SEPSIS, LIKELY SOURCE OF INFECTION, URINE OR HEMATOGENOUS OR LEFT UPPER EXTREMITY FISTULA GIVEN THE ACCOUNT OF PURULENT DISCHARGE. CONSULT NOTE DR. DANIELS 04-05-17: CHRONIC RENAL FAILURE, HTN, PROBABLY STAPH SEPSIS WITH MULTIPLE ACCESS ISSUES PN 04-05-17: MRSA SEPSIS WBC: 04-04-17: 14.4, 04-05-17: 13.3 04-06-17: 14.4 04-07-17: 14.9 BANDS: 04-04-17: 39 04-05-17: 27 RISK FACTORS: H&P: SEPSIS. SHE PRESENTING WITH SEPSIS, LIKELY SOURCE OF INFECTION, URINE OR HEMATOGENOUS OR LEFT UPPER EXTREMITY FISTULA GIVEN THE ACCOUNT OF PURULENT DISCHARGE. CONSULT NOTE DR. DANIELS 04-07-17: MRSA SEPSIS, MULTIPLE ACCESS, RENAL FAILURE WITH UTI PN 04-05-17: ACUTE BACTEREMIA TREATMENTS: DAILY LABS BLOOD CULTURES 2-9-18 ID CONSULT (MAR ) VANCOMYCIN, ZOSYN (This form is maintained as a part of the permanent medical record) 2014 [employer]. All Rights Reserved BARBARA [email or web address] Office: [phone] JOSE
--- NOTE | 2017-04-07 16:00 | PDOC.PN ---
- Subjective Encounter Start Date: 04/07/17 Encounter Start Time: 15:58 Subjective: feels better but nauseated. - Objective Resuscitation Status: Resuscitation Status FULL:Full Resuscitation MAR Reviewed: Yes Vital Signs & Weight: Vital Signs (12 hours) Temp Pulse Resp BP BP Pulse Ox 04/07/17 15:32 99.5 F 87 20 120/54 L 100 04/07/17 14:00 85 18 101/53 L 96 04/07/17 11:22 99.1 F 100 19 146/46 H 96 04/07/17 10:39 146/46 H 04/07/17 10:30 94 146/46 H 04/07/17 09:30 115 H 150/65 H 04/07/17 08:00 99.2 F 95 22 H 95 04/07/17 07:32 99.2 F 75 22 H 138/66 95 04/07/17 04:00 98.7 F 114 H 20 130/60 99 Weight Admit Weight 150 lb Weight 162 lb 11.2 oz Most Recent Monitor Data Heart Rate from ECG 88 NIBP 110/60 NIBP BP-Mean 99 Respiration from ECG 19 SpO2 90 I&O: 04/06/17 04/07/17 04/08/17 06:59 06:59 06:59 Intake Total 2800 240 Output Total 250 Balance 2550 240 Result Diagrams: 04/07/17 03:26 04/07/17 03:26 Additional Labs: Microbiology 04/04/17 20:46 Venous blood - Left Foot Blood Culture - Final Methicillin resistant S.aureus 04/04/17 16:15 Arm - Left Bacterial Culture - Final Methicillin resistant S.aureus 04/04/17 15:23 Urine Suprapubic catheter Urine Culture - Final Escherichia coli 04/06/17 03:18 Venous blood - Left Foot Blood Culture - Preliminary Specimen has been received and culture in progress. No Growth to date. 04/06/17 03:18 Venous blood - Left Foot Blood Culture - Preliminary Specimen has been received and culture in progress. No Growth to date. 04/04/17 20:55 Venous blood - Left Leg Blood Culture - Preliminary NO GROWTH AT 48 HOURS Phys Exam - Physical Examination pale,weak looking HEENT: PERRLA, moist MMs, sclera anicteric, oral pharynx no lesions Neck: no JVD Respiratory: no wheezing, no rales, no rhonchi, clear to auscultation bilateral Cardiovascular: RRR, no significant murmur Gastrointestinal: soft, non-tender, no distention, positive bowel sounds Musculoskeletal: no edema, pulses present Neurological: non-focal, normal sensation, moves all 4 limbs Psychiatric: normal affect, A&O x 3 Skin: no rash Dx/Plan (1) MRSA bacteremia Code(s): R78.81 - BACTEREMIA Status: Acute (2) Sepsis Code(s): A41.9 - SEPSIS, UNSPECIFIED ORGANISM Status: Acute (3) E. coli UTI Code(s): N39.0 - URINARY TRACT INFECTION, SITE NOT SPECIFIED; B96.20 - UNSP ESCHERICHIA COLI THE CAUSE OF DISEASES CLASSD ELSWHR Status: Acute (4) Anemia in chronic kidney disease Code(s): N18.9 - CHRONIC KIDNEY DISEASE, UNSPECIFIED; D63.1 - ANEMIA IN CHRONIC KIDNEY DISEASE Status: Chronic Qualifiers: Chronic kidney disease stage: on chronic dialysis Qualified Code(s): N18.6 - End stage renal disease; D63.1 - Anemia in chronic kidney disease; D63.1 - Anemia in chronic kidney disease; Z99.2 - Dependence on renal dialysis; Z99.2 - Dependence on renal dialysis; Z99.2 - Dependence on renal dialysis; Z99.2 - Dependence on renal dialysis Comment: Trending down after surgical procedures. Still > 8 today. Monitor. EPO w HD. (5) Anxiety and depression Code(s): F41.9 - ANXIETY DISORDER, UNSPECIFIED; F32.9 - MAJOR DEPRESSIVE DISORDER, SINGLE EPISODE, UNSPECIFIED Status: Chronic Comment: COntinue hoome medications. Anxious but denies SI/HI. Lorazepam PRN for anxiety. (6) CAD (coronary artery disease), [place] coronary artery Code(s): I25.10 - ATHSCL HEART DISEASE OF [place] CORONARY ARTERY W/O ANG PCTRS Status: Chronic Qualifiers: [place] vs. transplanted heart: [place] heart Associated angina: without angina Qualified Code(s): I25.10 - Atherosclerotic heart disease of [place] coronary artery without angina pectoris Comment: Stable, chest pain free. (7) Diastolic dysfunction Code(s): I51.9 - HEART DISEASE, UNSPECIFIED Status: Chronic (8) ESRD (end stage renal disease) on dialysis Code(s): N18.6 - END STAGE RENAL DISEASE; Z99.2 - DEPENDENCE ON RENAL DIALYSIS Status: Chronic Comment: R arm fistulla placed 04/02. Also has a triple lumen catheter. Dialysis per nephrology. (9) Hypertension Code(s): I10 - ESSENTIAL (PRIMARY) HYPERTENSION Status: Chronic Qualifiers: Hypertension type: essential hypertension Qualified Code(s): I10 - Essential (primary) hypertension (10) Secondary hyperparathyroidism of renal origin Code(s): N25.81 - SECONDARY HYPERPARATHYROIDISM OF RENAL ORIGIN Status: Chronic - Plan plan discussed w/ family, continue antibiotics, PT/OT, respiratory therapy, incentive spirometry, out of bed/ambulate, DVT proph w/heparin, DVT proph w/SCDs cont Vancomycin per SS.ID following -: HD catheter removed from Left neck.new cathter on friday for Hemodialysi -: Check ECHO to r/o AV vegetations.artificail valve . -: cont home meds as below. -: ,may need restarting Zosyn for E.coli in urine.will defer to ID * .am labs * Guarded prognosis. * supportive care. * HD per nephrology Review of Systems - Review of Systems Constitutional: weakness, malaise Respiratory: SOB with Excertion. negative: Cough, Dry, Shortness of Breath, Hemoptysis, Pleuritic Pain, Sputum, Wheezing Cardiovascular: negative: chest pain, palpitations, orthopnea, paroxysmal nocturnal dyspnea, edema, light headedness, other Gastrointestinal: Nausea. negative: Vomiting, Abdominal Pain, Diarrhea, Constipation, Melena, Hematochezia, Other Genitourinary: negative: Dysuria, Frequency, Incontinence, Hematuria, Retention , Other Musculoskeletal: negative: Neck Pain, Shoulder Pain, Arm Pain, Back Pain, Hand Pain, Leg Pain, Foot Pain, Other Neurological: negative: Weakness, Numbness, Incoordination, Change in Speech, Confusion, Seizures, Other - Medications/Allergies Allergies/Adverse Reactions: Allergies Allergy/AdvReac Type Severity Reaction Status Date / Time atorvastatin calcium Allergy Verified 04/04/17 22:29 [From Lipitor] cefuroxime axetil Allergy Verified 04/04/17 22:29 [From Ceftin] meperidine HCl [From Demerol] Allergy Verified 04/04/17 22:29 nitrofurantoin Allergy Verified 04/04/17 22:29 [From Macrodantin] simvastatin [From Zocor] Allergy Verified 04/04/17 22:29 Medications: Current Medications Acetaminophen (Tylenol) 650 mg [place] Q4H PRN PRN Reason: Headache/Fever or Pain Acetaminophen (Tylenol) 650 mg PO Q6H PRN PRN Reason: Headache/Fever or Pain Last Admin: 04/06/17 13:43 Dose: 650 mg Albuterol/Ipratropium (Duoneb) 3 ml NEB [id number] PRN PRN Reason: SOB &/or Wheezing Last Admin: 04/06/17 02:13 Dose: 3 ml Aspirin (Ecotrin) 81 mg PO DAILY [facility] Last Admin: 04/07/17 10:39 Dose: 81 mg Bisacodyl (Dulcolax) 10 mg PO DAILYPRN PRN PRN Reason: Constipation Carvedilol (Coreg) 12.5 mg PO MoWeFr@0900 [facility] Last Admin: 04/07/17 10:39 Dose: 12.5 mg Cinacalcet (Sensipar) 30 mg PO DAILY [facility] Last Admin: 04/07/17 10:39 Dose: 30 mg Docusate Sodium (Colace) 100 mg PO DAILY [facility] Last Admin: 04/07/17 10:39 Dose: 100 mg Epoetin Billy (Procrit) 10,000 units SC Q7D@1400 [facility] Last Admin: 04/05/17 21:45 Dose: 10,000 units Escitalopram Oxalate (Lexapro) 20 mg PO DAILY [facility] Last Admin: 04/07/17 10:39 Dose: 20 mg Norepinephrine Bitartrate (Levophed) 250 mls @ 0 mls/hr IVPB PRN PRN; Protocol ; Titrate PRN Reason: To maintain MAP > 65 Sodium Chloride (Normal Saline 0.9%) 1,000 mls @ 75 mls/hr IV .[id number] [facility] Last Admin: 04/07/17 13:24 Dose: 1,000 mls Vancomycin HCl 1.25 gm/ Sodium (Chloride) 250 mls @ 166.667 mls/hr IVPB [facility] Vancomycin HCl 1 gm/ Device 200 mls @ 200 mls/hr IVPB [facility] Vancomycin HCl 750 mg/ Sodium (Chloride) 250 mls @ 250 mls/hr IVPB [facility] Vancomycin HCl 500 mg/ Sodium (Chloride) 100 mls @ 100 mls/hr IVPB [facility] Sodium Chloride (Normal Saline 0.9% 250 Ml Bag) 200 mls @ 0 mls/hr IVPB PRN PRN ; As Directed PRN Reason: HYPOTENSION DURING HD Loratadine (Claritin) 10 mg PO DAILY [facility] Last Admin: 04/07/17 10:39 Dose: 10 mg Midodrine (Proamatine) 10 mg PO MoWeFr@0600 [facility] Miscellaneous Medication (Pharmacy To Dose) 1 each IVPB PRN PRN PRN Reason: Pharmacy to dose Hold Vancomycin For (Level >20) 0 each FS .AT DIALYSIS [facility] Ondansetron HCl (Zofran) 4 mg IVP Q6H PRN PRN Reason: Nausea/Vomiting Last Admin: 04/07/17 12:13 Dose: 4 mg Pravastatin Sodium (Pravachol) 10 mg PO HS [facility] Last Admin: 04/06/17 20:47 Dose: 10 mg Sodium Chloride (Flush - Normal Saline) 10 ml IVF Q12HR [facility] Sodium Chloride (Flush - Normal Saline) 10 ml IVF PRN PRN PRN Reason: Saline Flush Tramadol HCl (Ultram) 50 mg PO Q4H PRN PRN Reason: mod pain Last Admin: 04/07/17 10:40 Dose: 50 mg
[2017-04-07] MEDS: Pravastatin Sodium 20 MG TAB PO SCH (20:21)
[2017-04-07] MEDS: Acetaminophen 325 MG TAB PO PRN (21:50)
[2017-04-08] MEDS: Sodium Chloride 0.9% 1,000 ML IV SCH ×2 (02:51→15:26)
[2017-04-08 04:34] LABS: #Eosinphils 0.2 thou/uL (0.0-0.7); #Lymphocytes 1.5 thou/uL (1.20-3.40); #Monocytes 0.9 thou/uL (0.11-0.59); #Neutrophils 8.6 thou/uL (1.40-6.50); %Basophils 0.1 % (0.0-1.0); %Lymphocytes 13.4 % (21.0-51.0); %Monocytes 7.7 % (0.0-10.0); %Neutrophils 76.8 % (42.0-75.0); Hemoglobin 7.9 g/dL (12.0-16.0); Mean Corpuscular HGB CONC 32.8 g/dL (32.0-36.0); Mean Corpuscular Hemoglobin 32.1 pg (27.0-31.0); Mean Platelet Volume 8.5 fL (7.4-10.4); Platelet Count 317 thou/uL (130-400); RBC Distribution Width 15.6 % (11.5-14.5); Red Blood Cell (RBC) Count 2.47 mill/uL (4.20-5.40); White Blood Cell (WBC) Count 11.2 thou/uL (4.8-10.8)
[2017-04-08 04:35] LABS: Anion Gap 13 mmol/L (10-20); BUN (Urea Nitrogen) 23 mg/dL (9.8-20.1); Calc. Creatinine Clearance 19 mL/min (70-130); Carbon Dioxide 26 mmol/L (23-31); Chloride 102 mmol/L (98-107); Estimated GFR-MDRD 14; Glucose 109 mg/dL (80-115); Potassium 3.1 mmol/L (3.5-5.1); Sodium 138 mmol/L (136-145); Vancomycin, Trough 12.6 ug/mL
[2017-04-08] MEDS: Ondansetron PF 4 MG/2 ML Vial IVP PRN (08:41)
[2017-04-08] MEDS: Escitalopram Oxalate 20 mg Tablet PO SCH (08:47)
[2017-04-08] MEDS: Cinacalcet HCl 30 MG TAB PO SCH (08:47)
[2017-04-08] MEDS: Docusate 100 MG CAP PO SCH (08:47)
[2017-04-08] MEDS: Loratadine 10 MG TAB PO SCH (08:47)
[2017-04-08] MEDS: Aspirin 81 mg Enteric Coated Tablet PO SCH (08:47)
--- NOTE | 2017-04-08 08:48 | PRG ---
DATE OF SERVICE: 04/08/2017 She is better this morning. She says she is still short of breath, not coughing. PHYSICAL EXAMINATION: VITAL SIGNS: Sats on room air 98, respirations 20, temperature is 98, respirations 18, blood pressur e 125/62. CHEST: Chest revealed decreased breath with minimal wheezing. CARDIAC: Normal S1, S2, no gallops. White count 11,000, H&H 7 and 24, platelet count 317. Electrolytes are normal. Creatinine 3. Blood is growing MRSA. IMPRESSION: 1. Staph sepsis, multiple access issues. 2. Respiratory failure. 3. Encephalopathy. PLAN: From a pulmonary standpoint of view she can be transferred out of the [facility]. Please continue s cheduled neb treatment. I will follow.
--- NOTE | 2017-04-08 09:48 | PRG ---
DATE OF SERVICE: 04/08/2017 SUBJECTIVE: Ms. Rodriguez is a 66-year-old white female with ESRD and admitted for fever and chills . She has a methicillin-resistant Staphylococcus aureus bacteremia. Her dialysis catheter has been pulled. She is on IV vancomycin. She is also complaining of left wrist pain. She tells me she fell on that left wrist. An x-ray of the left wrist has been ordered. No complaints of chest pain or sh ortness of breath. PHYSICAL EXAMINATION: VITAL SIGNS: Blood pressure is 125/62, heart rate 87, respiratory rate 20, temperature 98.1, pulse o x 100%. GENERAL: Awake, alert, comfortable, not in overt distress. SKIN: Adequate turgor. HEENT: She has slightly pale conjunctivae, anicteric sclerae. NECK: No neck mass, no carotid bruits, no JVD. CHEST: No deformities. LUNGS: Clear breath sounds. No wheezing, no crackles. HEART: Normal sinus rhythm. No murmurs, no gallops or rubs. ABDOMEN: Globular, soft, nontender, no masses. EXTREMITIES: No edema. Slight swelling of the left wrist. MEDICATIONS: 04/08/2017 - Reviewed. LABORATORY: 04/08/2017 - White count 11.2, hemoglobin 7.9, sodium 138, potassium 3.1, chloride 102, carbon dioxide 26, BUN 23, creatinine 3.3, calcium 8. Vancomycin level 12.6. ASSESSMENT AND PLAN: 1. End-stage renal disease, stable. We will continue current Friday, Friday, Friday dialysis. D ialysis catheter has been pulled out. A placement is scheduled by the surgeon. Tolerating current d ialysis. No emergency dialysis today. 2. Methicillin-resistant Staphylococcus aureus bacteremia on IV vancomycin. We will be rechecking a vancomycin level in the a.m. 3. Anemia, continuing weekly Epogen, p.r.n. blood transfusion. 4. Left wrist pain. X-ray of the left wrist has been ordered. I agree with current management.
--- NOTE | 2017-04-08 11:20 | RAD ---
THREE VIEWS OF THE LEFT WRIST: History: Fall with left wrist pain. FINDINGS: Three views of the left wrist shows an abnormal appearance of the distal radial metaphysis. No obviou s acute fracture or seen but this could represent an acute fracture or subacute fracture. Soft tissue swelling is seen. No degenerative changes are present. IMPRESSION: The patient has a distal radius fracture. This may be acute or chronic. Correlate with history of grupo or wrist fracture. POS: JOY
--- NOTE | 2017-04-08 13:42 | PDOC.PN ---
- Subjective Encounter Start Date: 04/08/17 Encounter Start Time: 13:40 Subjective: feels OK. still w some nausea.c/o diarrhea.no abd pain -: no vomiting - Objective Resuscitation Status: Resuscitation Status FULL:Full Resuscitation MAR Reviewed: Yes Vital Signs & Weight: Vital Signs (12 hours) Temp Pulse Resp BP Pulse Ox 04/08/17 12:10 98.4 F 93 20 152/70 H 96 04/08/17 07:59 98.1 F 87 20 100 04/08/17 07:47 98.1 F 87 20 125/62 100 04/08/17 04:00 98.2 F 86 20 131/60 98 04/08/17 03:20 84 18 98 Weight Admit Weight 150 lb Weight 164 lb 6.4 oz Most Recent Monitor Data Heart Rate from ECG 88 NIBP 110/60 NIBP BP-Mean 99 Respiration from ECG 19 SpO2 90 I&O: 04/07/17 04/08/17 04/09/17 06:59 06:59 06:59 Intake Total 2800 2995 240 Output Total 250 1890 Balance 2550 1105 240 Result Diagrams: 04/08/17 03:45 04/08/17 03:45 Additional Labs: Microbiology 04/04/17 20:55 Venous blood - Left Leg Blood Culture - Final Methicillin resistant S.aureus 04/04/17 20:46 Venous blood - Left Foot Blood Culture - Final Methicillin resistant S.aureus 04/04/17 16:15 Arm - Left Bacterial Culture - Final Methicillin resistant S.aureus 04/04/17 15:23 Urine Suprapubic catheter Urine Culture - Final Escherichia coli 04/06/17 03:18 Venous blood - Left Foot Blood Culture - Preliminary Specimen has been received and culture in progress. No Growth to date. 04/06/17 03:18 Venous blood - Left Foot Blood Culture - Preliminary Specimen has been received and culture in progress. No Growth to date. Phys Exam - Physical Examination Constitutional: NAD HEENT: PERRLA, moist MMs, sclera anicteric, oral pharynx no lesions Neck: no nodes, no JVD, supple Respiratory: no wheezing, no rales, no rhonchi, clear to auscultation bilateral Cardiovascular: RRR, no significant murmur, no rub, gallop Gastrointestinal: soft, non-tender, no distention, positive bowel sounds Musculoskeletal: pulses present, edema present Neurological: non-focal, normal sensation, moves all 4 limbs Psychiatric: normal affect, A&O x 3 Skin: no rash, normal turgor, cap refill <2 seconds Dx/Plan (1) MRSA bacteremia Code(s): R78.81 - BACTEREMIA Status: Acute (2) Sepsis Code(s): A41.9 - SEPSIS, UNSPECIFIED ORGANISM Status: Acute (3) E. coli UTI Code(s): N39.0 - URINARY TRACT INFECTION, SITE NOT SPECIFIED; B96.20 - UNSP ESCHERICHIA COLI THE CAUSE OF DISEASES CLASSD ELSWHR Status: Acute (4) Anemia in chronic kidney disease Code(s): N18.9 - CHRONIC KIDNEY DISEASE, UNSPECIFIED; D63.1 - ANEMIA IN CHRONIC KIDNEY DISEASE Status: Chronic Qualifiers: Chronic kidney disease stage: on chronic dialysis Qualified Code(s): N18.6 - End stage renal disease; D63.1 - Anemia in chronic kidney disease; D63.1 - Anemia in chronic kidney disease; Z99.2 - Dependence on renal dialysis; Z99.2 - Dependence on renal dialysis; Z99.2 - Dependence on renal dialysis; Z99.2 - Dependence on renal dialysis Comment: Trending down after surgical procedures. Still > 8 today. Monitor. EPO w HD. (5) Anxiety and depression Code(s): F41.9 - ANXIETY DISORDER, UNSPECIFIED; F32.9 - MAJOR DEPRESSIVE DISORDER, SINGLE EPISODE, UNSPECIFIED Status: Chronic Comment: COntinue hoome medications. Anxious but denies SI/HI. Lorazepam PRN for anxiety. (6) CAD (coronary artery disease), [place] coronary artery Code(s): I25.10 - ATHSCL HEART DISEASE OF [place] CORONARY ARTERY W/O ANG PCTRS Status: Chronic Qualifiers: [place] vs. transplanted heart: [place] heart Associated angina: without angina Qualified Code(s): I25.10 - Atherosclerotic heart disease of [place] coronary artery without angina pectoris Comment: Stable, chest pain free. (7) Diastolic dysfunction Code(s): I51.9 - HEART DISEASE, UNSPECIFIED Status: Chronic (8) ESRD (end stage renal disease) on dialysis Code(s): N18.6 - END STAGE RENAL DISEASE; Z99.2 - DEPENDENCE ON RENAL DIALYSIS Status: Chronic Comment: R arm fistulla placed 04/02. Also has a triple lumen catheter. Dialysis per nephrology. 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 -: add probiotics.send stools for CDiff etc. -: cont ASA,coreg.H/H stable. cont epogen * .OK to transfer to medical floor. * ECHO pending -r/o AV vegetations * am labs Review of Systems - Review of Systems Constitutional: weakness, malaise. negative: fever, chills, sweats, other Respiratory: negative: Cough, Dry, Shortness of Breath, Hemoptysis, SOB with Excertion, Pleuritic Pain, Sputum, Wheezing Cardiovascular: negative: chest pain, palpitations, orthopnea, paroxysmal nocturnal dyspnea, edema, light headedness, other Gastrointestinal: Nausea, Diarrhea Genitourinary: negative: Dysuria, Frequency, Incontinence, Hematuria, Retention , Other Musculoskeletal: negative: Neck Pain, Shoulder Pain, Arm Pain, Back Pain, Hand Pain, Leg Pain, Foot Pain, Other Skin: negative: Rash, Lesions, R[place], Bruising, Other Neurological: negative: Weakness, Numbness, Incoordination, Change in Speech, Confusion, Seizures, Other - Medications/Allergies Allergies/Adverse Reactions: Allergies Allergy/AdvReac Type Severity Reaction Status Date / Time atorvastatin calcium Allergy Verified 04/04/17 22:29 [From Lipitor] cefuroxime axetil Allergy Verified 04/04/17 22:29 [From Ceftin] meperidine HCl [From Demerol] Allergy Verified 04/04/17 22:29 nitrofurantoin Allergy Verified 04/04/17 22:29 [From Macrodantin] simvastatin [From Zocor] Allergy Verified 04/04/17 22:29 Medications: Current Medications Acetaminophen (Tylenol) 650 mg [place] Q4H PRN PRN Reason: Headache/Fever or Pain Acetaminophen (Tylenol) 650 mg PO Q6H PRN PRN Reason: Headache/Fever or Pain Last Admin: 04/07/17 21:50 Dose: 650 mg Albuterol/Ipratropium (Duoneb) 3 ml NEB [id number] [facility] Aspirin (Ecotrin) 81 mg PO DAILY [facility] Last Admin: 04/08/17 08:47 Dose: 81 mg Bisacodyl (Dulcolax) 10 mg PO DAILYPRN PRN PRN Reason: Constipation Carvedilol (Coreg) 12.5 mg PO MoWeFr@0900 [facility] Last Admin: 04/07/17 10:39 Dose: 12.5 mg Cinacalcet (Sensipar) 30 mg PO DAILY [facility] Last Admin: 04/08/17 08:47 Dose: 30 mg Docusate Sodium (Colace) 100 mg PO DAILY [facility] Last Admin: 04/08/17 08:47 Dose: 100 mg Epoetin Billy (Procrit) 10,000 units SC Q7D@1400 [facility] Last Admin: 04/05/17 21:45 Dose: 10,000 units Escitalopram Oxalate (Lexapro) 20 mg PO DAILY [facility] Last Admin: 04/08/17 08:47 Dose: 20 mg Norepinephrine Bitartrate (Levophed) 250 mls @ 0 mls/hr IVPB PRN PRN; Protocol ; Titrate PRN Reason: To maintain MAP > 65 Sodium Chloride (Normal Saline 0.9%) 1,000 mls @ 75 mls/hr IV .[id number] [facility] Last Admin: 04/08/17 02:51 Dose: 1,000 mls Vancomycin HCl 1.25 gm/ Sodium (Chloride) 250 mls @ 166.667 mls/hr IVPB [facility]CALL [facility] Vancomycin HCl 1 gm/ Device 200 mls @ 200 mls/hr IVPB [facility] Vancomycin HCl 750 mg/ Sodium (Chloride) 250 mls @ 250 mls/hr IVPB [facility] Vancomycin HCl 500 mg/ Sodium (Chloride) 100 mls @ 100 mls/hr IVPB [facility] Sodium Chloride (Normal Saline 0.9% 250 Ml Bag) 200 mls @ 0 mls/hr IVPB PRN PRN ; As Directed PRN Reason: HYPOTENSION DURING HD Loratadine (Claritin) 10 mg PO DAILY [facility] Last Admin: 04/08/17 08:47 Dose: 10 mg Midodrine (Proamatine) 10 mg PO MoWeFr@0600 [facility] Miscellaneous Medication (Pharmacy To Dose) 1 each IVPB PRN PRN PRN Reason: Pharmacy to dose Hold Vancomycin For (Level >20) 0 each FS .AT DIALYSIS [facility] Ondansetron HCl (Zofran) 4 mg IVP Q6H PRN PRN Reason: Nausea/Vomiting Last Admin: 04/08/17 08:41 Dose: 4 mg Pravastatin Sodium (Pravachol) 10 mg PO HS [facility] Last Admin: 04/07/17 20:21 Dose: 10 mg Saccharomyces Boulardii (Florastor) 250 mg PO DAILY [facility] Sodium Chloride (Flush - Normal Saline) 10 ml IVF Q12HR [facility] Last Admin: 04/08/17 08:47 Dose: Not Given Sodium Chloride (Flush - Normal Saline) 10 ml IVF PRN PRN PRN Reason: Saline Flush Tramadol HCl (Ultram) 50 mg PO Q4H PRN PRN Reason: mod pain Last Admin: 04/07/17 10:40 Dose: 50 mg
[2017-04-08] MEDS: traMADol HCl 50 MG TAB PO PRN ×2 (15:21→20:02)
--- NOTE | 2017-04-08 15:25 | CON ---
DATE OF CONSULTATION: 04/08/2017 CHIEF COMPLAINT: Left hand and wrist pain. HISTORY OF PRESENT ILLNESS: Ms. Rodriguez is a 66-year-old female who has been admitted to the CCU with sepsis. She has been found to have a left fistula infection in her chest and groin. She has a history of multiple medical problems including other infections. She was treated for left knee infec tion in 02/2016. She had end-stage renal disease on hemodialysis. She is currently receiving a ivon thing treatment. She has been complaining of left hand swelling and pain. She has edema of her arm. X-rays were obtained which showed a questionable fracture of the distal radius. She does have a hi story of fracture of the distal radius approximately 2 years ago. She reports this healed without in cident although she has had deformity of her wrist since that time. PAST MEDICAL HISTORY: Includes hemodialysis with left arm fistula, chronic left upper extremity julian a, history of breast cancer, history of aortic valve replacement, history of coronary artery bypass g raft for coronary artery disease. PAST SURGICAL HISTORY: Includes right hip hemiarthroplasty for femoral neck fracture. She has had l eft knee surgery for infection. She has had other surgeries including fistula surgery and coronary a rtery bypass graft. ALLERGIES: ATORVASTATIN, CEFEPIME, MEPERIDINE, and ZOCOR. SOCIAL HISTORY: The patient denies active alcohol, tobacco, or drug use. She lives independently. PHYSICAL EXAMINATION: VITAL SIGNS: Temperature is 98.4, pulse is 93, blood pressure is 131/60, oxygen saturation 98% on ro om air. GENERAL: She is sitting upright, no apparent distress. HEENT: Normocephalic, atraumatic. RESPIRATORY: Breathing comfortably. ABDOMEN: Soft, nontender, and nondistended. MUSCULOSKELETAL: The patient's left upper extremity has pitting edema of the hand up to the elbow le christy. She has a dressed wound over her fistula as well as her anterior left chest wall. There is luisa ntly surrounding erythema. She is able to flex and extend the digits. There is no deformity of the fingers noted. She does have radial deviation and shortening of the radius on the wrist. IMAGES: X-rays of the left wrist demonstrate a healed distal radius fracture. There is radial short ening and loss of volar tilt. These are chronic issues. IMPRESSION: Chronic distal radius fracture which is now well healed. Pain from edema of the left wiggins nd related to a fistular infection. PLAN: Regarding the patient's musculoskeletal complaint, she needs no further specific treatment oth er than elevation of the hand. She should strictly do this. She can work on range of motion. Wrist brace as needed if she does have significant rest pain. No need for further orthopedic intervention . Please call with questions.
[2017-04-08] MEDS: Pravastatin Sodium 20 MG TAB PO SCH (20:02)
--- NOTE | 2017-04-08 22:52 | PRG ---
DATE OF SERVICE: 04/08/2017 SUBJECTIVE: She is feeling better. She was seen by Dr. Herron regarding left hand and wrist pain and this was in reference to the fracture in the distal radius and he recommended conservative manag ement. She is more oriented. No shortness of breath. OBJECTIVE: VITAL SIGNS: T-max 99.2, blood pressure 150/71, pulse 87, respirations 20, O2 saturation 97%. GENERAL: Chronically ill-appearing, more alert and oriented. LUNGS: Symmetric air entry. HEART: S1, S2, regular rate. ABDOMEN: Soft, a little area of the inflammatory changes in the T-dialysis catheter access site and the left arm wound with the previously noted changes. LABORATORY DATA: White cell count of 11.2, hemoglobin 7.9, platelets 217,000, 76% neutrophils. Crea tinine 3.30. Two sets of blood cultures, no growth at 48 hours from two days ago. Pending echocardi ogram. ASSESSMENT AND DISCUSSION: End-stage renal disease on prior urological complications related to dior enital abnormalities. End-stage renal disease on hemodialysis catheter recent complications of AV fi stula in left upper extremity with hemorrhage interventions, which led to wound dehiscence and infect ion by methicillin-resistant Staphylococcus aureus, now with bacteremia. Possible artificial heart v alve involvement, possible colonization of the recently placed hemodialysis catheter. Other complica tions including the possibility of septic pulmonary hematogenous pneumonitis to be considered. Radha molina on clinical course. Lumbar spine needs to be monitored as well in view of pain, may need imaging studies depending on clinical progress and the right hip joint, we will have to be monitored as well. Continue vancomycin and sliding scale. She will need treatments for treatments for protracted sandra ods of time, at least until 05/17.
[2017-04-08] MEDS ORDERED: Zolpidem Tartrate 5 MG TAB PO SCH (23:30)
[2017-04-09 05:02] LABS: #Basophils 0.1 thou/uL (0.0-0.2); #Eosinphils 0.3 thou/uL (0.0-0.7); #Lymphocytes 1.9 thou/uL (1.20-3.40); #Neutrophils 10.5 thou/uL (1.40-6.50); %Basophils 0.4 % (0.0-1.0); %Lymphocytes 13.7 % (21.0-51.0); %Monocytes 7.1 % (0.0-10.0); %Neutrophils 76.8 % (42.0-75.0); Hemoglobin 8.4 g/dL (12.0-16.0); Mean Corpuscular HGB CONC 31.8 g/dL (32.0-36.0); Mean Corpuscular Volume 97.4 fl (81.0-99.0); Mean Platelet Volume 8.2 fL (7.4-10.4); Platelet Count 394 thou/uL (130-400); RBC Distribution Width 15.9 % (11.5-14.5); White Blood Cell (WBC) Count 13.7 thou/uL (4.8-10.8)
[2017-04-09 05:19] LABS: Vancomycin, Trough 11.3 ug/mL
[2017-04-09 05:21] LABS: Anion Gap 13 mmol/L (10-20); BUN (Urea Nitrogen) 29 mg/dL (9.8-20.1); Calc. Creatinine Clearance 16 mL/min (70-130); Calcium 8.1 mg/dL (7.8-10.44); Carbon Dioxide 23 mmol/L (23-31); Chloride 101 mmol/L (98-107); Estimated GFR-MDRD 11; Glucose 93 mg/dL (80-115); Potassium 3.2 mmol/L (3.5-5.1); Sodium 134 mmol/L (136-145)
[2017-04-09] MEDS: Sodium Chloride 0.9% 1,000 ML IV SCH ×2 (05:23→21:54)
[2017-04-09] MEDS: Midodrine HCl 5 MG TAB PO SCH (05:24)
--- NOTE | 2017-04-09 08:32 | PRG ---
DATE OF SERVICE: 04/09/2017 This morning she is tearful. PHYSICAL EXAMINATION: VITAL SIGNS: Sats 90% on room air, respirations 20-28, blood pressure 160/72. She is going down to Surgery for access issues. LUNGS: She is having some difficulty breathing. Chest revealed bilateral rhonchi. CARDIAC: Normal S1, S2. No gallops. LABORATORY: Creatinine 3.9, white count 9000, H&H is 8 and 27, platelet count is normal. IMPRESSION: 1. Sepsis, access. 2. Respiratory failure. 3. Congestive heart failure. 4. Chronic obstructive pulmonary disease. 5. Colitis. PLAN: IV vancomycin as initiated. She has got Clostridium difficile colitis is probably going to ne ed p.o. vancomycin or Flagyl. Continue neb treatments, continue PT. I will follow.
[2017-04-09] MEDS: Saccharomyces boulardii 250 MG CAP PO SCH (08:45)
[2017-04-09] MEDS: Escitalopram Oxalate 20 mg Tablet PO SCH (08:45)
[2017-04-09] MEDS: Loratadine 10 MG TAB PO SCH (08:45)
[2017-04-09] MEDS: Carvedilol 6.25 MG TAB PO SCH (08:46)
[2017-04-09] MEDS: Cinacalcet HCl 30 MG TAB PO SCH (08:46)
[2017-04-09] MEDS: Docusate 100 MG CAP PO SCH (08:46)
[2017-04-09] MEDS: traMADol HCl 50 MG TAB PO PRN ×2 (08:47→17:08)
[2017-04-09] MEDS: Ondansetron PF 4 MG/2 ML Vial IVP PRN (08:54)
[2017-04-09] MEDS ORDERED: Potassium Chloride 40 MEQ in Sodium Chloride 0.9% 250 ML 250 ML IVPB SCH (09:30)
--- NOTE | 2017-04-09 10:09 | PRG ---
DATE OF SERVICE: 04/09/2017 SUBJECTIVE: Ms. Rodriguez is a 66-year-old white female who was admitted for fever, chills. She wa s found to have methicillin-resistant Staphylococcus aureus bacteremia, dialysis catheter had been pu lled out. She has been off her dialysis catheter for the last 2 days. A new catheter will be placed today. She has been receiving IV vancomycin. The patient has no new complaints. She denies any chest pain or shortness of breath. I have schedul ed her for hemodialysis tomorrow. PHYSICAL EXAMINATION: VITAL SIGNS: Blood pressure is 108/44, heart rate 86, respiratory rate 15, temperature 98.8, pulse o x 94%. GENERAL: Awake, alert, comfortable, not in distress. SKIN: Adequate turgor. HEENT: Pinkish conjunctivae, anicteric sclerae. NECK: No neck mass, no carotid bruits, no JVD. CHEST: No deformities. LUNGS: Clear breath sounds. HEART: Normal sinus rhythm. No murmurs, no gallops or rubs. ABDOMEN: Globular, soft, nontender, no masses. EXTREMITIES: No edema, no deformities. MEDICATIONS: 04/09/2017 - Reviewed. LABORATORY: 04/09/2017 - Vancomycin level was 11.3, sodium 134, potassium 3.2, chloride 101, carbon dioxide 23, BUN 29, creatinine 3.97, GFR 11 mL per minute. Calcium 8.1. White count 13.7, hemoglobi n 8.4. ASSESSMENT AND PLAN: 1. End-stage renal disease, stable. We will continue current 3 times a week hemodialysis. Since e patient does not have any dialysis catheter I will schedule her for dialysis in a.m. Continue 3 ti mes a week dialysis, fluid removal only as tolerated. 2. Anemia, continuing weekly Epogen with this patient at 10,000 units subcutaneously every week. 3. Methicillin-resistant Staphylococcus aureus bacteremia - currently on IV vancomycin - Pharmacy fo llowing it up for dosing. We will recheck basic metabolic, CBC and vancomycin level in a.m.
[2017-04-09] MEDS: Aspirin 81 mg Enteric Coated Tablet PO SCH (10:24)
[2017-04-09] MEDS: metroNIDAZOLE 500 MG in Premix Bag 1 BAG IVPB SCH ×4 (13:20→23:03)
--- NOTE | 2017-04-09 14:03 | PDOC.PN ---
- Subjective Encounter Start Date: 04/09/17 Encounter Start Time: 14:01 Subjective: feels Ok,still very weak.no nausea.diarrhea improving - Objective Resuscitation Status: Resuscitation Status FULL:Full Resuscitation MAR Reviewed: Yes Vital Signs & Weight: Vital Signs (12 hours) Temp Pulse Resp BP BP Pulse Ox 04/09/17 12:40 85 16 97 04/09/17 12:29 98.2 F 104 H 15 127/67 94 L 04/09/17 09:16 98.8 F 86 15 108/44 L 94 L 04/09/17 08:46 108/44 L 04/09/17 05:18 98.5 F 94 20 168/72 H 99 Weight Admit Weight 150 lb Weight 168 lb 3.2 oz Most Recent Monitor Data Heart Rate from ECG 88 NIBP 110/60 NIBP BP-Mean 99 Respiration from ECG 19 SpO2 90 I&O: 04/08/17 04/09/17 04/10/17 06:59 06:59 06:59 Intake Total 2995 3144 Output Total 1890 340 Balance 1105 2804 Result Diagrams: 04/09/17 04:45 04/09/17 04:45 Additional Labs: Microbiology 04/08/17 19:54 Stool - Soft C. difficile GDH Antigen & Toxins - Final.Ag positive 04/08/17 19:54 Stool - Soft Clostridium difficile Toxin A&B PCR - Final 04/08/17 19:54 Stool Stool Lactoferrin - Final 04/08/17 19:54 Stool Escherichia coli 0157 Culture - Final 04/08/17 19:54 Stool Campylobacter Antigen Assay - Final 04/08/17 19:54 Stool Shiga Toxin Test - Final 04/04/17 20:55 Venous blood - Left Leg Blood Culture - Final Methicillin resistant S.aureus 04/04/17 20:46 Venous blood - Left Foot Blood Culture - Final Methicillin resistant S.aureus 04/04/17 16:15 Arm - Left Bacterial Culture - Final Methicillin resistant S.aureus 04/04/17 15:23 Urine Suprapubic catheter Urine Culture - Final Escherichia coli 04/06/17 03:18 Venous blood - Left Foot Blood Culture - Preliminary NO GROWTH AT 48 HOURS 04/06/17 03:18 Venous blood - Left Foot Blood Culture - Preliminary NO GROWTH AT 48 HOURS Phys Exam - Physical Examination Constitutional: NAD HEENT: PERRLA, moist MMs, sclera anicteric, oral pharynx no lesions Neck: no nodes, no JVD, supple, full ROM Respiratory: no wheezing, no rales, no rhonchi, clear to auscultation bilateral Cardiovascular: RRR, no significant murmur Gastrointestinal: soft, non-tender, no distention, positive bowel sounds Musculoskeletal: no edema, pulses present Neurological: non-focal, normal sensation, moves all 4 limbs Psychiatric: normal affect, A&O x 3 Skin: no rash Dx/Plan (1) C. difficile diarrhea Code(s): A04.72 - ENTEROCOLITIS D/T CLOSTRIDIUM DIFFICILE, NOT SPCF RECUR Status: Acute (2) MRSA bacteremia Code(s): R78.81 - BACTEREMIA Status: Acute (3) Sepsis Code(s): A41.9 - SEPSIS, UNSPECIFIED ORGANISM Status: Acute (4) E. coli UTI Code(s): N39.0 - URINARY TRACT INFECTION, SITE NOT SPECIFIED; B96.20 - UNSP ESCHERICHIA COLI THE CAUSE OF DISEASES CLASSD ELSWHR Status: Acute (5) Anemia in chronic kidney disease Code(s): N18.9 - CHRONIC KIDNEY DISEASE, UNSPECIFIED; D63.1 - ANEMIA IN CHRONIC KIDNEY DISEASE Status: Chronic Qualifiers: Chronic kidney disease stage: on chronic dialysis Qualified Code(s): N18.6 - End stage renal disease; D63.1 - Anemia in chronic kidney disease; D63.1 - Anemia in chronic kidney disease; Z99.2 - Dependence on renal dialysis; Z99.2 - Dependence on renal dialysis; Z99.2 - Dependence on renal dialysis; Z99.2 - Dependence on renal dialysis Comment: Trending down after surgical procedures. Still > 8 today. Monitor. EPO w HD. (6) Anxiety and depression Code(s): F41.9 - ANXIETY DISORDER, UNSPECIFIED; F32.9 - MAJOR DEPRESSIVE DISORDER, SINGLE EPISODE, UNSPECIFIED Status: Chronic Comment: COntinue hoome medications. Anxious but denies SI/HI. Lorazepam PRN for anxiety. (7) CAD (coronary artery disease), [place] coronary artery Code(s): I25.10 - ATHSCL HEART DISEASE OF [place] CORONARY ARTERY W/O ANG PCTRS Status: Chronic Qualifiers: [place] vs. transplanted heart: [place] heart Associated angina: without angina Qualified Code(s): I25.10 - Atherosclerotic heart disease of [place] coronary artery without angina pectoris Comment: Stable, chest pain free. (8) Diastolic dysfunction Code(s): I51.9 - HEART DISEASE, UNSPECIFIED Status: Chronic (9) ESRD (end stage renal disease) on dialysis Code(s): N18.6 - END STAGE RENAL DISEASE; Z99.2 - DEPENDENCE ON RENAL DIALYSIS Status: Chronic Comment: R arm fistulla placed 04/02. Also has a triple lumen catheter. Dialysis per nephrology. (10) Hypertension Code(s): I10 - ESSENTIAL (PRIMARY) HYPERTENSION Status: Chronic Qualifiers: Hypertension type: essential hypertension Qualified Code(s): I10 - Essential (primary) hypertension (11) Secondary hyperparathyroidism of renal origin Code(s): N25.81 - SECONDARY HYPERPARATHYROIDISM OF RENAL ORIGIN Status: Chronic (12) Wrist fracture Code(s): S62.109A - FRACTURE OF UNSP CARPAL BONE, UNSP WRIST, INIT FOR CLOS FX Status: Acute (13) Hypokalemia Code(s): E87.6 - HYPOKALEMIA Status: Acute - Plan continue antibiotics, PT/OT, respiratory therapy, incentive spirometry, out of bed/ambulate, DVT proph w/SCDs add IV flagyl for C.diff.Cont IV vanco for MRSA bacteremia.ID following -: HD catheter later today.HD per nephrology -: guarded prognosis w multiple co morbidities & deconditioning -: cont ASA,BB,cont Epogen per nephrology -: wound care.OT,PT * . Review of Systems - Review of Systems Constitutional: weakness, malaise. negative: fever, chills, sweats, other ENT: negative: Ear Pain, Ear Discharge, Nose Pain, Nose Discharge, Nose Congestion, Mouth Pain, Mouth Swelling, Throat Pain, Throat Swelling, Other Respiratory: negative: Cough, Dry, Shortness of Breath, Hemoptysis, SOB with Excertion, Pleuritic Pain, Sputum, Wheezing Cardiovascular: negative: chest pain, palpitations, orthopnea, paroxysmal nocturnal dyspnea, edema, light headedness, other Gastrointestinal: Nausea Genitourinary: negative: Dysuria, Frequency, Incontinence, Hematuria, Retention , Other Musculoskeletal: negative: Neck Pain, Shoulder Pain, Arm Pain, Back Pain, Hand Pain, Leg Pain, Foot Pain, Other Skin: negative: Rash, Lesions, Ryley, Bruising, Other Neurological: negative: Weakness, Numbness, Incoordination, Change in Speech, Confusion, Seizures, Other - Medications/Allergies Allergies/Adverse Reactions: Allergies Allergy/AdvReac Type Severity Reaction Status Date / Time atorvastatin calcium Allergy Verified 04/04/17 22:29 [From Lipitor] cefuroxime axetil Allergy Verified 04/04/17 22:29 [From Ceftin] meperidine HCl [From Demerol] Allergy Verified 04/04/17 22:29 nitrofurantoin Allergy Verified 04/04/17 22:29 [From Macrodantin] simvastatin [From Zocor] Allergy Verified 04/04/17 22:29 Medications: Current Medications Acetaminophen (Tylenol) 650 mg NM Q4H PRN PRN Reason: Headache/Fever or Pain Acetaminophen (Tylenol) 650 mg PO Q6H PRN PRN Reason: Headache/Fever or Pain Last Admin: 04/07/17 21:50 Dose: 650 mg Albuterol/Ipratropium (Duoneb) 3 ml NEB [id number] [facility] Last Admin: 04/09/17 12:40 Dose: 3 ml Aspirin (Ecotrin) 81 mg PO DAILY [facility] Last Admin: 04/09/17 10:24 Dose: Not Given Bisacodyl (Dulcolax) 10 mg PO DAILYPRN PRN PRN Reason: Constipation Carvedilol (Coreg) 12.5 mg PO MoWeFr@0900 [facility] Last Admin: 04/09/17 08:46 Dose: 12.5 mg Cinacalcet (Sensipar) 30 mg PO DAILY [facility] Last Admin: 04/09/17 08:46 Dose: 30 mg Docusate Sodium (Colace) 100 mg PO DAILY [facility] Last Admin: 04/09/17 08:46 Dose: 100 mg Epoetin Billy (Procrit) 10,000 units SC Q7D@1400 [facility] Last Admin: 04/05/17 21:45 Dose: 10,000 units Escitalopram Oxalate (Lexapro) 20 mg PO DAILY [facility] Last Admin: 04/09/17 08:45 Dose: 20 mg Norepinephrine Bitartrate (Levophed) 250 mls @ 0 mls/hr IVPB PRN PRN; Protocol ; Titrate PRN Reason: To maintain MAP > 65 Sodium Chloride (Normal Saline 0.9%) 1,000 mls @ 75 mls/hr IV .[id number] [facility] Last Admin: 04/09/17 05:23 Dose: 1,000 mls Vancomycin HCl 1.25 gm/ Sodium (Chloride) 250 mls @ 166.667 mls/hr IVPB WILLCALL [facility] Vancomycin HCl 1 gm/ Device 200 mls @ 200 mls/hr IVPB WILLCALL [facility] Vancomycin HCl 750 mg/ Sodium (Chloride) 250 mls @ 250 mls/hr IVPB WILLCALL FERNANDO Vancomycin HCl 500 mg/ Sodium (Chloride) 100 mls @ 100 mls/hr IVPB WILLCALL [facility] Sodium Chloride (Normal Saline 0.9% 250 Ml Bag) 200 mls @ 0 mls/hr IVPB PRN PRN ; As Directed PRN Reason: HYPOTENSION DURING HD Metronidazole 500 mg/ Device 100 mls @ 100 mls/hr IVPB Q6HR [facility] Loratadine (Claritin) 10 mg PO DAILY [facility] Last Admin: 04/09/17 08:45 Dose: 10 mg Midodrine (Proamatine) 10 mg PO MoWeFr@0600 [facility] Last Admin: 04/09/17 05:24 Dose: Not Given Miscellaneous Medication (Pharmacy To Dose) 1 each IVPB PRN PRN PRN Reason: Pharmacy to dose Hold Vancomycin For (Level >20) 0 each FS .AT DIALYSIS [facility] Ondansetron HCl (Zofran) 4 mg IVP Q6H PRN PRN Reason: Nausea/Vomiting Last Admin: 04/09/17 08:54 Dose: 4 mg Pravastatin Sodium (Pravachol) 10 mg PO HS [facility] Last Admin: 04/08/17 20:02 Dose: 10 mg Saccharomyces Boulardii (Florastor) 250 mg PO DAILY [facility] Last Admin: 04/09/17 08:45 Dose: 250 mg Sodium Chloride (Flush - Normal Saline) 10 ml IVF Q12HR [facility] Last Admin: 04/09/17 10:25 Dose: Not Given Sodium Chloride (Flush - Normal Saline) 10 ml IVF PRN PRN PRN Reason: Saline Flush Tramadol HCl (Ultram) 50 mg PO Q4H PRN PRN Reason: mod pain Last Admin: 04/09/17 08:47 Dose: 50 mg
[2017-04-09] MEDS ORDERED: PROPOFOL 200 MG/20 ML VIAL ONE (16:35)
[2017-04-09] MEDS ORDERED: PHENYLEPHRINE-NS 100 MCG/ML 10 ML SYRINGE ONE (16:35)
[2017-04-09] MEDS ORDERED: Bupivacaine 0.5% 10 ML VIAL ONE (17:11)
[2017-04-09] MEDS ORDERED: Lidocaine 1% w/Epinephrine 1:200K 30 ML VIAL ONE (17:11)
[2017-04-09] MEDS ORDERED: Heparin 25,000 units/D5W 500 ML ONE (17:11)
[2017-04-09] MEDS ORDERED: Heparin 10,000 UNITS/1 ML VIAL ONE (17:13)
[2017-04-09] MEDS ORDERED: Sodium Chloride 0.9% 10 ML ONE (17:16)
[2017-04-09] MEDS ORDERED: Sodium Chloride 0.9% 0 ML ONE (18:19)
[2017-04-09] MEDS ORDERED: Ketamine 50 MG/ML (10ML VIAL) ONE (18:41)
[2017-04-09] MEDS ORDERED: Propofol 500 MG/50 ML VIAL ONE (18:41)
[2017-04-09] MEDS ORDERED: Fentanyl 100 MCG/2 ML VIAL ONE ×2 (18:41→21:10)
[2017-04-09] MEDS ORDERED: Midazolam HCl 2 mg/2 ml Vial ONE ×2 (18:41→18:52)
[2017-04-09] MEDS ORDERED: Promethazine HCl 25 MG/ML VIAL SLOW IVP PRN (21:11)
[2017-04-09] MEDS ORDERED: Promethazine HCl 25 MG/ML VIAL IM PRN (21:11)
[2017-04-09] MEDS ORDERED: Ondansetron HCl/PF 4 MG/2 ML Vial IVP PRN (21:11)
[2017-04-09] MEDS: Pravastatin Sodium 20 MG TAB PO SCH (22:23)
[2017-04-09] MEDS: Temazepam 15 MG CAP PO PRN (22:56)
[2017-04-10] MEDS: traMADol HCl 50 MG TAB PO PRN (01:31)
--- NOTE | 2017-04-10 02:09 | OP ---
DATE OF OPERATION: 04/09/2017 PREOPERATIVE DIAGNOSES: End-stage renal disease, status post recent ligation of hemorrhaging left up per arm fistula and creation of right arm basilic vein fistula. We will need transposition in 4 week s, occluded right internal jugular vein from previous access. Recently infected left internal jugula r vein catheter. POSTOPERATIVE DIAGNOSES: End-stage renal disease, status post recent ligation of hemorrhaging left u pper arm fistula and creation of right arm basilic vein fistula. We will need transposition in 4 wee ks, occluded right internal jugular vein from previous access. Recently infected left internal jugul ar vein catheter. PROCEDURE: Right femoral vein cuffed tunnel hemodialysis catheter, angiodynamics. Fluoroscopy used. SURGEON: Dr. Trae Morris. ANESTHESIA: General. Local 0.5% Marcaine, 30 mL mixed with 2% Xylocaine with epinephrine 20 mL. PROCEDURE IN DETAIL: Patient was taken to the operating room, where under general anesthesia, abdome n and groin were cleaned with soap and water and then prepared with ChloraPrep, draped in routine fas hion. Local anesthetic mixture infiltrated into skin and subcutaneous tissue about the operative sit e. Trocar catheter cannulated the right femoral vein. J-wire threaded. Trocar catheter removed. S kin incised and enlarged sharply. Stab incision made in the anterior to mid lateral thigh and using the tunneling device, the angiodynamics hemodialysis catheter tunneled between two incisions, placing the fabric cuff beneath the skin exit site and catheter secured with 2 interrupted sutures of 3-0 ny ger. Smaller and medium sized dilators placed over the J-wire into the femoral vein and removed. Di lator and pull-away sheath placed over the J-wire into the femoral vein and dilator and J-wire remove d. Catheter placed with pull-away sheath and under fluoroscopic visualization, the catheter position ed an inferior vena cava and pull-away sheath was removed. Each port aspirated blood, flushed with s bryce solution, and heparinized saline solution of 1000 units heparin per mL indicated volume on the port. Patient tolerated the procedure well. Sterile dressings applied.
[2017-04-10 03:36] LABS: #Basophils 0.1 thou/uL (0.0-0.2); #Eosinphils 0.3 thou/uL (0.0-0.7); #Lymphocytes 1.5 thou/uL (1.20-3.40); #Monocytes 1.1 thou/uL (0.11-0.59); #Neutrophils 10.4 thou/uL (1.40-6.50); %Basophils 0.6 % (0.0-1.0); %Eosinophils 2.3 % (0.0-10.0); %Lymphocytes 11.2 % (21.0-51.0); %Monocytes 8.2 % (0.0-10.0); %Neutrophils 77.7 % (42.0-75.0); Hemoglobin 7.5 g/dL (12.0-16.0); Mean Corpuscular HGB CONC 32.2 g/dL (32.0-36.0); Mean Corpuscular Hemoglobin 31.7 pg (27.0-31.0); Mean Corpuscular Volume 98.4 fl (81.0-99.0); Mean Platelet Volume 8.1 fL (7.4-10.4); Platelet Count 419 thou/uL (130-400); Red Blood Cell (RBC) Count 2.38 mill/uL (4.20-5.40); White Blood Cell (WBC) Count 13.4 thou/uL (4.8-10.8)
[2017-04-10 03:54] LABS: Vancomycin, Trough 8.9 ug/mL
[2017-04-10 03:56] LABS: Anion Gap 14 mmol/L (10-20); BUN (Urea Nitrogen) 38 mg/dL (9.8-20.1); Calc. Creatinine Clearance 14 mL/min (70-130); Calcium 7.8 mg/dL (7.8-10.44); Carbon Dioxide 21 mmol/L (23-31); Chloride 106 mmol/L (98-107); Estimated GFR-MDRD 9; Glucose 100 mg/dL (80-115); Potassium 4.2 mmol/L (3.5-5.1); Sodium 137 mmol/L (136-145)
[2017-04-10] MEDS: metroNIDAZOLE 500 MG in Premix Bag 1 BAG IVPB SCH ×4 (06:09→22:52)
[2017-04-10] MEDS: Ondansetron PF 4 MG/2 ML Vial IVP PRN ×2 (08:46→22:22)
[2017-04-10] MEDS ORDERED: Zolpidem Tartrate 5 MG TAB PO PRN (09:01)
[2017-04-10] MEDS ORDERED: Midodrine HCl 5 MG TAB PO SCH (09:15)
--- NOTE | 2017-04-10 09:15 | PRG ---
DATE OF SERVICE: 04/10/2017 RENAL MEDICINE SUBJECTIVE: Ms. Rodriguez is a 66-year-old white female who was admitted for line bacteremia. She had MRSA bacteremia, currently on IV vancomycin. Dialysis catheter has been changed. She has a new femoral dialysis catheter. She is requesting a sleeping pill for tonight. Denies any chest pain or shortness of breath. She also had a fall which she traumatized her left wrist. X-ray was done which showed an old fracture. PHYSICAL EXAMINATION: VITAL SIGNS: Blood pressure is 104/43, heart rate 103, respiratory rate 20, temperature 98.5, pulse ox 93%. GENERAL: Awake, alert, supine, comfortable, not in distress. SKIN: Adequate turgor. HEENT: She has slightly pale conjunctivae, anicteric sclerae. NECK: No neck mass. No carotid bruits, no JVD. CHEST: No deformities. LUNGS: Clear breath sounds. No wheezing, no crackles. HEART: Normal sinus rhythm. No murmurs, no gallops, no rubs. ABDOMEN: Globular, soft, nontender, no masses. EXTREMITIES: No edema, no deformities. MEDICATIONS: Medications of 04/10/2017 was reviewed. LABORATORY DATA: Laboratories of 04/10/2017; white count 13.4, hemoglobin 7.5. Vancomycin level is 8.9. Sodium 137, potassium 4.2, chloride 106, carbon dioxide 21, BUN 38, creatinine 4.64, glucose 10 0, and calcium 7.8. ASSESSMENT AND PLAN: 1. End-stage renal disease, stable. Continue current hemodialysis regimen. The patient missed dial ysis yesterday and we are dialyzing her today for 3 hours. We will resume her back on Friday, , and Friday dialysis starting in a.m. I am currently at the bedside supervising her dialysis. 2. Methicillin-resistant Staphylococcus aureus bacteremia - currently on IV vancomycin. We will red ose her today due to the level of 8.9. 3. Anemia, continuing weekly Epogen. Agree with current management.
[2017-04-10] MEDS: Sodium Chloride 0.9% 1,000 ML IV SCH (10:45)
[2017-04-10] MEDS: Aspirin 81 mg Enteric Coated Tablet PO SCH (13:32)
[2017-04-10] MEDS: Saccharomyces boulardii 250 MG CAP PO SCH (13:33)
[2017-04-10] MEDS: Docusate 100 MG CAP PO SCH (13:33)
[2017-04-10] MEDS: Cinacalcet HCl 30 MG TAB PO SCH (13:33)
[2017-04-10] MEDS: Escitalopram Oxalate 20 mg Tablet PO SCH (13:33)
[2017-04-10] MEDS: Loratadine 10 MG TAB PO SCH (13:33)
--- NOTE | 2017-04-10 13:52 | PRG ---
DATE OF SERVICE: 04/10/2017 SUBJECTIVE: The patient is awake, alert, responsive, and being dialyzed. No shortness of breath. OBJECTIVE: VITAL SIGNS: Sats are 90% on room air, pulse 103, temperature 98, and blood pressure 104/43. CHEST: Decreased breath sounds, no wheezing. CARDIAC: Normal S1, S2. No gallops. LABORATORY DATA: White count 13,000, hemoglobin and hematocrit 7 and 23, platelet count 419, and cre atinine 4.6. IMPRESSION: 1. Respiratory failure, sepsis. 2. Encephalopathy. 3. Status post right femoral vein cuffed dialysis catheter in place. PLAN: Continue antibiotics, nebulizer treatments, and supportive care. Pulmonary will follow at a d istance. Please call if needed.
--- NOTE | 2017-04-10 14:51 | PDOC.PN ---
- Subjective Encounter Start Date: 04/10/17 Encounter Start Time: 14:50 Subjective: feels better today.seen in dialysis -: no more loose stools.no bleeding.no fever/chills - Objective Resuscitation Status: Resuscitation Status FULL:Full Resuscitation MAR Reviewed: Yes Vital Signs & Weight: Vital Signs (12 hours) Temp Pulse Resp BP Pulse Ox 04/10/17 08:00 98.5 F 103 H 20 104/43 L 93 L 04/10/17 05:00 99.4 F 90 20 108/56 L 95 Weight Admit Weight 150 lb Weight 168 lb 3.2 oz Most Recent Monitor Data Heart Rate from ECG 88 NIBP 110/60 NIBP BP-Mean 99 Respiration from ECG 19 SpO2 90 I&O: 04/09/17 04/10/17 04/11/17 06:59 06:59 06:59 Intake Total 3144 1535 Output Total 340 185 Balance 2804 1350 Result Diagrams: 04/10/17 03:25 04/10/17 03:25 Additional Labs: Microbiology 04/08/17 19:54 Stool - Soft C. difficile GDH Antigen & Toxins - Final 04/08/17 19:54 Stool - Soft Clostridium difficile Toxin A&B PCR - Final 04/08/17 19:54 Stool Stool Lactoferrin - Final 04/08/17 19:54 Stool Escherichia coli 0157 Culture - Final 04/08/17 19:54 Stool Campylobacter Antigen Assay - Final 04/08/17 19:54 Stool Shiga Toxin Test - Final 04/04/17 20:55 Venous blood - Left Leg Blood Culture - Final Methicillin resistant S.aureus 04/04/17 20:46 Venous blood - Left Foot Blood Culture - Final Methicillin resistant S.aureus 04/04/17 16:15 Arm - Left Bacterial Culture - Final Methicillin resistant S.aureus 04/04/17 15:23 Urine Suprapubic catheter Urine Culture - Final Escherichia coli 04/08/17 19:54 Stool Stool Culture - Preliminary 04/06/17 03:18 Venous blood - Left Foot Blood Culture - Preliminary NO GROWTH AT 48 HOURS 04/06/17 03:18 Venous blood - Left Foot Blood Culture - Preliminary NO GROWTH AT 48 HOURS Phys Exam - Physical Examination Constitutional: NAD HEENT: PERRLA, moist MMs, sclera anicteric, oral pharynx no lesions Neck: no nodes, no JVD, supple, full ROM Respiratory: no wheezing, no rales, no rhonchi, clear to auscultation bilateral Cardiovascular: RRR, no significant murmur Gastrointestinal: soft, non-tender, no distention, positive bowel sounds Musculoskeletal: no edema, pulses present R arm fistula site dressed Neurological: non-focal, normal sensation, moves all 4 limbs Psychiatric: normal affect, A&O x 3 Dx/Plan (1) C. difficile diarrhea Code(s): A04.72 - ENTEROCOLITIS D/T CLOSTRIDIUM DIFFICILE, NOT SPCF RECUR Status: Acute (2) MRSA bacteremia Code(s): R78.81 - BACTEREMIA Status: Acute (3) Sepsis Code(s): A41.9 - SEPSIS, UNSPECIFIED ORGANISM Status: Acute (4) E. coli UTI Code(s): N39.0 - URINARY TRACT INFECTION, SITE NOT SPECIFIED; B96.20 - UNSP ESCHERICHIA COLI THE CAUSE OF DISEASES CLASSD ELSWHR Status: Acute (5) Anemia in chronic kidney disease Code(s): N18.9 - CHRONIC KIDNEY DISEASE, UNSPECIFIED; D63.1 - ANEMIA IN CHRONIC KIDNEY DISEASE Status: Chronic Qualifiers: Chronic kidney disease stage: on chronic dialysis Qualified Code(s): N18.6 - End stage renal disease; D63.1 - Anemia in chronic kidney disease; D63.1 - Anemia in chronic kidney disease; Z99.2 - Dependence on renal dialysis; Z99.2 - Dependence on renal dialysis; Z99.2 - Dependence on renal dialysis; Z99.2 - Dependence on renal dialysis Comment: Trending down after surgical procedures. Still <8 today. Monitor. EPO w HD. (6) Anxiety and depression Code(s): F41.9 - ANXIETY DISORDER, UNSPECIFIED; F32.9 - MAJOR DEPRESSIVE DISORDER, SINGLE EPISODE, UNSPECIFIED Status: Chronic Comment: COntinue hoome medications. Anxious but denies SI/HI. Lorazepam PRN for anxiety. (7) CAD (coronary artery disease), [place] coronary artery Code(s): I25.10 - ATHSCL HEART DISEASE OF [place] CORONARY ARTERY W/O ANG PCTRS Status: Chronic Qualifiers: [place] vs. transplanted heart: [place] heart Associated angina: without angina Qualified Code(s): I25.10 - Atherosclerotic heart disease of [place] coronary artery without angina pectoris Comment: Stable, chest pain free. (8) Diastolic dysfunction Code(s): I51.9 - HEART DISEASE, UNSPECIFIED Status: Chronic (9) ESRD (end stage renal disease) on dialysis Code(s): N18.6 - END STAGE RENAL DISEASE; Z99.2 - DEPENDENCE ON RENAL DIALYSIS Status: Chronic Comment: R arm fistulla placed 04/02. Also has a triple lumen catheter. Dialysis per nephrology. (10) Hypertension Code(s): I10 - ESSENTIAL (PRIMARY) HYPERTENSION Status: Chronic Qualifiers: Hypertension type: essential hypertension Qualified Code(s): I10 - Essential (primary) hypertension (11) Secondary hyperparathyroidism of renal origin Code(s): N25.81 - SECONDARY HYPERPARATHYROIDISM OF RENAL ORIGIN Status: Chronic (12) Wrist fracture Code(s): S62.109A - FRACTURE OF UNSP CARPAL BONE, UNSP WRIST, INIT FOR CLOS FX Status: Chronic (13) Hypokalemia Code(s): E87.6 - HYPOKALEMIA Status: Resolved - Plan continue antibiotics, PT/OT, respiratory therapy, incentive spirometry, out of bed/ambulate, DVT proph w/SCDs R femoral HD cathter done & HD re-initiated.Nephrology following -: cont IV Vanco for MRSA bacteremia & IV Flagyl for C.Diff.probiotics -: severe deconditioning.rehab assesment -: daily labs. -: will [place] need several days stay for more perm access & IV ABx * .ID following.appreciate input. * monitor H/H.transfuse if <7. * home meds as below. Review of Systems - Review of Systems Constitutional: weakness, malaise ENT: negative: Ear Pain, Ear Discharge, Nose Pain, Nose Discharge, Nose Congestion, Mouth Pain, Mouth Swelling, Throat Pain, Throat Swelling, Other Respiratory: negative: Cough, Dry, Shortness of Breath, Hemoptysis, SOB with Excertion, Pleuritic Pain, Sputum, Wheezing Cardiovascular: negative: chest pain, palpitations, orthopnea, paroxysmal nocturnal dyspnea, edema, light headedness, other Gastrointestinal: negative: Nausea, Vomiting, Abdominal Pain, Diarrhea, Constipation, Melena, Hematochezia, Other Genitourinary: negative: Dysuria, Frequency, Incontinence, Hematuria, Retention , Other Musculoskeletal: negative: Neck Pain, Shoulder Pain, Arm Pain, Back Pain, Hand Pain, Leg Pain, Foot Pain, Other Skin: negative: Rash, Lesions, [place], Bruising, Other Neurological: negative: Weakness, Numbness, Incoordination, Change in Speech, Confusion, Seizures, Other - Medications/Allergies Allergies/Adverse Reactions: Allergies Allergy/AdvReac Type Severity Reaction Status Date / Time atorvastatin calcium Allergy Verified 04/04/17 22:29 [From Lipitor] cefuroxime axetil Allergy Verified 04/04/17 22:29 [From Ceftin] meperidine HCl [From Demerol] Allergy Verified 04/04/17 22:29 nitrofurantoin Allergy Verified 04/04/17 22:29 [From Macrodantin] simvastatin [From Zocor] Allergy Verified 04/04/17 22:29 Medications: Current Medications Acetaminophen (Tylenol) 650 mg [place] Q4H PRN PRN Reason: Headache/Fever or Pain Acetaminophen (Tylenol) 650 mg PO Q6H PRN PRN Reason: Headache/Fever or Pain Last Admin: 04/07/17 21:50 Dose: 650 mg Albuterol/Ipratropium (Duoneb) 3 ml NEB [id number] [facility] Last Admin: 04/10/17 09:50 Dose: Not Given Aspirin (Ecotrin) 81 mg PO DAILY [facility] Last Admin: 04/10/17 13:32 Dose: 81 mg Bisacodyl (Dulcolax) 10 mg PO DAILYPRN PRN PRN Reason: Constipation Carvedilol (Coreg) 12.5 mg PO MoWeFr@0900 [facility] Last Admin: 04/09/17 08:46 Dose: 12.5 mg Cinacalcet (Sensipar) 30 mg PO DAILY [facility] Last Admin: 04/10/17 13:33 Dose: 30 mg Docusate Sodium (Colace) 100 mg PO DAILY [facility] Last Admin: 04/10/17 13:33 Dose: 100 mg Epoetin Billy (Procrit) 10,000 units SC Q7D@1400 [facility] Last Admin: 04/05/17 21:45 Dose: 10,000 units Escitalopram Oxalate (Lexapro) 20 mg PO DAILY [facility] Last Admin: 04/10/17 13:33 Dose: 20 mg Norepinephrine Bitartrate (Levophed) 250 mls @ 0 mls/hr IVPB PRN PRN; Protocol ; Titrate PRN Reason: To maintain MAP > 65 Sodium Chloride (Normal Saline 0.9%) 1,000 mls @ 75 mls/hr IV .[id number] [facility] Last Admin: 04/10/17 10:45 Dose: Not Given Vancomycin HCl 1.25 gm/ Sodium (Chloride) 250 mls @ 166.667 mls/hr IVPB WILLCALL [facility] Vancomycin HCl 1 gm/ Device 200 mls @ 200 mls/hr IVPB WILLCALL [facility] Last Admin: 04/10/17 10:59 Dose: 200 mls Vancomycin HCl 750 mg/ Sodium (Chloride) 250 mls @ 250 mls/hr IVPB WILLCALL [facility] Vancomycin HCl 500 mg/ Sodium (Chloride) 100 mls @ 100 mls/hr IVPB WILLCALL [facility] Sodium Chloride (Normal Saline 0.9% 250 Ml Bag) 200 mls @ 0 mls/hr IVPB PRN PRN ; As Directed PRN Reason: HYPOTENSION DURING HD Metronidazole 500 mg/ Device 100 mls @ 100 mls/hr IVPB Q6HR [facility] Last Admin: 04/10/17 13:33 Dose: 100 mls Loratadine (Claritin) 10 mg PO DAILY [facility] Last Admin: 04/10/17 13:33 Dose: 10 mg Midodrine (Proamatine) 10 mg PO MoWeFr@0600 [facility] Last Admin: 04/09/17 05:24 Dose: Not Given Miscellaneous Medication (Pharmacy To Dose) 1 each IVPB PRN PRN PRN Reason: Pharmacy to dose Hold Vancomycin For (Level >20) 0 each FS .AT DIALYSIS [facility] Ondansetron HCl (Zofran) 4 mg IVP Q6H PRN PRN Reason: Nausea/Vomiting Last Admin: 04/10/17 08:46 Dose: 4 mg Pravastatin Sodium (Pravachol) 10 mg PO HS [facility] Last Admin: 04/09/17 22:23 Dose: 10 mg Saccharomyces Boulardii (Florastor) 250 mg PO DAILY [facility] Last Admin: 04/10/17 13:33 Dose: 250 mg Sodium Chloride (Flush - Normal Saline) 10 ml IVF Q12HR [facility] Last Admin: 04/09/17 21:54 Dose: Not Given Sodium Chloride (Flush - Normal Saline) 10 ml IVF PRN PRN PRN Reason: Saline Flush Temazepam (Restoril) 15 mg PO HSPRN PRN PRN Reason: Insomnia Last Admin: 04/09/17 22:56 Dose: 15 mg Tramadol HCl (Ultram) 50 mg PO Q4H PRN PRN Reason: mod pain Last Admin: 04/09/17 17:08 Dose: 50 mg Zolpidem Tartrate (Ambien) 5 mg PO HSPRN PRN PRN Reason: Insomnia
[2017-04-10 15:46] LABS: Vancomycin, Random 18.7 ug/mL (See Comment)
[2017-04-10] MEDS: Pravastatin Sodium 20 MG TAB PO SCH (22:22)
[2017-04-10] MEDS: Acetaminophen 325 MG TAB PO PRN (22:22)
[2017-04-10] MEDS: Temazepam 15 MG CAP PO PRN (22:22)
[2017-04-11 04:16] LABS: #Basophils 0.1 thou/uL (0.0-0.2); #Eosinphils 0.4 thou/uL (0.0-0.7); #Lymphocytes 1.7 thou/uL (1.20-3.40); #Monocytes 0.8 thou/uL (0.11-0.59); #Neutrophils 7.5 thou/uL (1.40-6.50); %Basophils 0.6 % (0.0-1.0); %Eosinophils 3.6 % (0.0-10.0); %Lymphocytes 16.3 % (21.0-51.0); %Monocytes 7.9 % (0.0-10.0); %Neutrophils 71.6 % (42.0-75.0); Hemoglobin 6.9 g/dL (12.0-16.0); Mean Corpuscular HGB CONC 31.3 g/dL (32.0-36.0); Mean Corpuscular Volume 99.1 fl (81.0-99.0); Mean Platelet Volume 7.9 fL (7.4-10.4); Platelet Count 454 thou/uL (130-400); RBC Distribution Width 16.1 % (11.5-14.5); Red Blood Cell (RBC) Count 2.23 mill/uL (4.20-5.40); White Blood Cell (WBC) Count 10.5 thou/uL (4.8-10.8)
[2017-04-11 04:32] LABS: Vancomycin, Trough 13.8 ug/mL
[2017-04-11 04:34] LABS: Anion Gap 11 mmol/L (10-20); BUN (Urea Nitrogen) 22 mg/dL (9.8-20.1); Calc. Creatinine Clearance 22 mL/min (70-130); Calcium 7.3 mg/dL (7.8-10.44); Carbon Dioxide 28 mmol/L (23-31); Chloride 100 mmol/L (98-107); Estimated GFR-MDRD 15; Glucose 93 mg/dL (80-115); Potassium 3.2 mmol/L (3.5-5.1); Sodium 136 mmol/L (136-145)
[2017-04-11] MEDS: metroNIDAZOLE 500 MG in Premix Bag 1 BAG IVPB SCH ×4 (05:38→23:29)
[2017-04-11] MEDS: Acetaminophen 325 MG TAB PO PRN ×3 (05:39→22:17)
[2017-04-11] MEDS: Midodrine HCl 5 MG TAB PO SCH (06:49)
[2017-04-11] MEDS ORDERED: Heparin 1,000 UNITS/ML VIAL ONE (11:11)
[2017-04-11] MEDS: Docusate 100 MG CAP PO SCH (12:11)
[2017-04-11] MEDS: Carvedilol 6.25 MG TAB PO SCH (12:12)
[2017-04-11] MEDS: Aspirin 81 mg Enteric Coated Tablet PO SCH (12:12)
[2017-04-11] MEDS: Escitalopram Oxalate 20 mg Tablet PO SCH (12:12)
[2017-04-11] MEDS: Loratadine 10 MG TAB PO SCH (12:12)
[2017-04-11] MEDS: Cinacalcet HCl 30 MG TAB PO SCH (12:12)
[2017-04-11] MEDS: Saccharomyces boulardii 250 MG CAP PO SCH (12:12)
[2017-04-11] MEDS: Ondansetron PF 4 MG/2 ML Vial IVP PRN ×2 (13:52→22:17)
--- NOTE | 2017-04-11 16:24 | PDOC.PN ---
- Subjective Encounter Start Date: 04/11/17 Encounter Start Time: 16:23 Ms. Rodriguez was seen today in follow-up. She is a bit anxious about being transferred to [facility]. She denies chest pain or difficulty breathing. She has been very weak. She stood yesterday with assistance, but was not able to take any steps. - Objective Resuscitation Status: Resuscitation Status FULL:Full Resuscitation MAR Reviewed: Yes Vital Signs & Weight: Vital Signs (12 hours) Temp Pulse Pulse Resp BP BP BP 04/11/17 15:49 97.8 F 82 20 143/68 H 04/11/17 14:14 80 16 04/11/17 12:12 138/62 04/11/17 12:00 98.5 F 82 18 134/61 04/11/17 07:45 98.3 F 98 19 138/62 04/11/17 07:36 98.3 F 98 19 Pulse Ox 04/11/17 15:49 94 L 04/11/17 14:14 04/11/17 12:12 04/11/17 12:00 95 04/11/17 07:45 93 L 04/11/17 07:36 93 L Weight Admit Weight 150 lb Weight 178 lb 7 oz Most Recent Monitor Data Heart Rate from ECG 88 NIBP 110/60 NIBP BP-Mean 99 Respiration from ECG 19 SpO2 90 I&O: 04/10/17 04/11/17 04/12/17 06:59 06:59 06:59 Intake Total 1535 750 Output Total 185 130 Balance 1350 620 Result Diagrams: 04/11/17 03:57 04/11/17 03:57 Phys Exam - Physical Examination HEENT: PERRLA Respiratory: no wheezing, no rales, no rhonchi, clear to auscultation bilateral Cardiovascular: RRR, no significant murmur, no rub Gastrointestinal: soft, non-tender, positive bowel sounds Musculoskeletal: edema present edema on both upper and lower extremities Neurological: non-focal Dx/Plan (1) C. difficile diarrhea Code(s): A04.72 - ENTEROCOLITIS D/T CLOSTRIDIUM DIFFICILE, NOT SPCF RECUR Status: Acute (2) MRSA bacteremia Code(s): R78.81 - BACTEREMIA Status: Acute (3) Anxiety and depression Code(s): F41.9 - ANXIETY DISORDER, UNSPECIFIED; F32.9 - MAJOR DEPRESSIVE DISORDER, SINGLE EPISODE, UNSPECIFIED Status: Chronic Comment: COntinue hoome medications. Anxious but denies SI/HI. Lorazepam PRN for anxiety. (4) CAD (coronary artery disease), [place] coronary artery Code(s): I25.10 - ATHSCL HEART DISEASE OF [place] CORONARY ARTERY W/O ANG PCTRS Status: Chronic Qualifiers: [place] vs. transplanted heart: [place] heart Associated angina: without angina Qualified Code(s): I25.10 - Atherosclerotic heart disease of [place] coronary artery without angina pectoris Comment: Stable, chest pain free. (5) ESRD (end stage renal disease) on dialysis Code(s): N18.6 - END STAGE RENAL DISEASE; Z99.2 - DEPENDENCE ON RENAL DIALYSIS Status: Chronic Comment: R arm fistulla placed 04/02. Also has a triple lumen catheter. Dialysis per nephrology. (6) Hypertension Code(s): I10 - ESSENTIAL (PRIMARY) HYPERTENSION Status: Chronic Qualifiers: Hypertension type: essential hypertension Qualified Code(s): I10 - Essential (primary) hypertension - Plan * Ms. Rodriguez was admitted with Severe sepsis due to MRSA. It is thought to be due to an infected AV fistula. Echo was negative for vegetations, but she had heavily calcified valves. She has developed C. Diff Diarrhea, which she is on Metronidazole for this. She is severely deconditioned and awaiting intermediate placement * MRSA sepsis- Continue Vancomycin SSI with Dialysis * C. Diff Diarrhea- she has had minimal diarrhea stools- will continue Metronidazole * ESRD- continue Dialysis, she has a Femoral vein access * Anemia- agree with transfusion * HTN- blood pressure is stable * Continue PT/OT .
[2017-04-11] MEDS: Pravastatin Sodium 20 MG TAB PO SCH (22:18)
[2017-04-11] MEDS: Temazepam 15 MG CAP PO PRN (22:18)
--- NOTE | 2017-04-12 00:17 | PRG ---
DATE OF SERVICE: 04/11/2017 RENAL MEDICINE SUBJECTIVE: The patient has no new complaints today, doing well. She is being treated for MRSA bact eremia. She underwent hemodialysis today without any difficulty. PHYSICAL EXAMINATION: VITAL SIGNS: Blood pressure 143/68, heart rate 94, respiratory rate 20, temperature 97.8. GENERAL: Awake, alert, comfortable, not in distress. SKIN: Adequate turgor. HEENT: Pale conjunctivae, anicteric sclerae. NECK: No neck mass, no carotid bruits, no JVD. CHEST: No deformities. LUNGS: Clear breath sounds. HEART: Normal sinus rhythm. No murmur, no gallops, no rubs. ABDOMEN: Globular, soft, nontender, no masses. EXTREMITIES: No edema, no deformities. MEDICATIONS: Of 04/11/2017 was reviewed. LABORATORY DATA: Of 04/11/2017, vancomycin level is 13.8. Sodium 136, potassium 3.2, chloride 100, carbon dioxide 28, BUN 22, creatinine 3.03, calcium 7.3. White count 10.5, hemoglobin 6.9. ASSESSMENT AND PLAN: 1. Anemia. Transfuse 1 unit packed red blood cells today. Continue weekly Epogen. 2. Methicillin-resistant Staphylococcus aureus bacteremia - currently on IV vancomycin - currently t herapeutic vancomycin level. 3. End-stage renal disease, stable. Tolerating current hemodialysis regimen. I agree with current management. No changes to be made with the current dialysis regimen. We will recheck basic metabolic panel, CBC and vancomycin level in a.m.
[2017-04-12 04:04] LABS: #Basophils 0.1 thou/uL (0.0-0.2); #Eosinphils 0.6 thou/uL (0.0-0.7); #Lymphocytes 2.1 thou/uL (1.20-3.40); #Neutrophils 8.4 thou/uL (1.40-6.50); %Basophils 0.8 % (0.0-1.0); %Eosinophils 4.9 % (0.0-10.0); %Lymphocytes 17.6 % (21.0-51.0); %Monocytes 7.8 % (0.0-10.0); %Neutrophils 68.9 % (42.0-75.0); Hemoglobin 8.3 g/dL (12.0-16.0); Mean Corpuscular HGB CONC 31.6 g/dL (32.0-36.0); Mean Corpuscular Hemoglobin 30.6 pg (27.0-31.0); Mean Corpuscular Volume 96.8 fl (81.0-99.0); Mean Platelet Volume 7.9 fL (7.4-10.4); Platelet Count 508 thou/uL (130-400); RBC Distribution Width 16.3 % (11.5-14.5); White Blood Cell (WBC) Count 12.1 thou/uL (4.8-10.8)
[2017-04-12 04:20] LABS: Anion Gap 13 mmol/L (10-20); BUN (Urea Nitrogen) 16 mg/dL (9.8-20.1); Calc. Creatinine Clearance 29 mL/min (70-130); Calcium 7.9 mg/dL (7.8-10.44); Carbon Dioxide 25 mmol/L (23-31); Chloride 104 mmol/L (98-107); Estimated GFR-MDRD 20; Glucose 92 mg/dL (80-115); Potassium 3.5 mmol/L (3.5-5.1); Sodium 138 mmol/L (136-145)
[2017-04-12 04:23] LABS: Vancomycin, Trough 16.8 ug/mL
[2017-04-12] MEDS: metroNIDAZOLE 500 MG in Premix Bag 1 BAG IVPB SCH ×4 (06:03→23:08)
[2017-04-12] MEDS: Acetaminophen 325 MG TAB PO PRN ×2 (06:03→22:05)
[2017-04-12] MEDS: Docusate 100 MG CAP PO SCH (08:44)
[2017-04-12] MEDS: Escitalopram Oxalate 20 mg Tablet PO SCH (08:44)
[2017-04-12] MEDS: Aspirin 81 mg Enteric Coated Tablet PO SCH (08:44)
[2017-04-12] MEDS: Loratadine 10 MG TAB PO SCH (08:44)
[2017-04-12] MEDS: Saccharomyces boulardii 250 MG CAP PO SCH (08:44)
[2017-04-12] MEDS: Cinacalcet HCl 30 MG TAB PO SCH (08:44)
--- NOTE | 2017-04-12 10:29 | PRG ---
DATE OF SERVICE: 04/12/2017 SUBJECTIVE: Ms. Rodriguez is a 66-year-old white female with ESRD, admitted for line bacteremia - j ust found to have MRSA. Her catheter has been changed. She has been treated with IV vancomycin. Du ring the interim, she did develop C. difficile colitis. She is currently on metronidazole. She is t olerating her current dialysis regimen. No other complaints today. She tells me she is feeling bett er. The patient denies any chest pain or shortness of breath. OBJECTIVE: VITAL SIGNS: Blood pressure is 181/71, heart rate 108, respiratory rate 18, temperature 98.3, pulse ox 93%. GENERAL EXAM: Noted to be awake, alert, comfortable. SKIN: Adequate turgor. HEENT: Slightly pale conjunctivae, anicteric sclerae. NECK: No neck mass, no carotid bruits. LUNGS: Clear breath sounds. HEART: Normal sinus rhythm. No murmur, no gallops, no rubs. ABDOMEN: Globular, soft, nontender. No masses. EXTREMITIES: No edema, no deformities. Medications of 04/12/2017 were reviewed. LABORATORY DATA: Laboratories of 04/12/2017, white count 12.1, hemoglobin 8.3. Vancomycin level is 16.8, sodium 138, potassium 3.5, chloride 104, carbon dioxide 25, BUN 16, creatinine 2.43, calcium is 7.9, white count 12.1, hemoglobin 8.3. ASSESSMENT AND PLAN: 1. Methicillin-resistant staphylococcus aureus bacteremia, currently on IV vancomycin on sliding sca le. 2. Anemia, received 1 unit of packed RBC yesterday. We are currently continuing her Epogen regimen at 10,000 units subcutaneously every week. 3. End-stage renal disease, stable, tolerating current hemodialysis regimen. Fluid removal only as tolerated. Please note a cardiac echocardiogram has been done on this patient, which did not show an y evidence of infective endocarditis/vegetation. Overall, prognosis remains guarded.
[2017-04-12] MEDS: Ondansetron PF 4 MG/2 ML Vial IVP PRN ×2 (11:37→18:02)
--- NOTE | 2017-04-12 12:30 | PDOC.PN ---
- Subjective Encounter Start Date: 04/12/17 Encounter Start Time: 12:28 Ms. Rodriguez was seen today in follow-up. She is sitting up in a chair. She tells me she has been in the chair for about 30 minutes, and is now tired and wants to go back to bed. No new complaints. - Objective Resuscitation Status: Resuscitation Status FULL:Full Resuscitation MAR Reviewed: Yes Vital Signs & Weight: Vital Signs (12 hours) Temp Pulse Resp BP Pulse Ox 04/12/17 08:55 98.3 F 82 16 93 L 04/12/17 07:55 98.3 F 108 H 18 181/71 H 93 L 04/12/17 06:36 82 16 94 L 04/12/17 05:00 98.0 F 93 19 137/64 94 L 04/12/17 02:33 93 L Weight Admit Weight 150 lb Weight 172 lb 6.424 oz Most Recent Monitor Data Heart Rate from ECG 88 NIBP 110/60 NIBP BP-Mean 99 Respiration from ECG 19 SpO2 90 I&O: 04/11/17 04/12/17 04/13/17 06:59 06:59 06:59 Intake Total 1100 Output Total 240 Balance 860 Result Diagrams: 04/12/17 03:52 04/12/17 03:52 Phys Exam - Physical Examination HEENT: PERRLA Respiratory: no wheezing Decreased breath sounds at the bases Cardiovascular: RRR, no significant murmur, no rub Gastrointestinal: soft, non-tender, positive bowel sounds Musculoskeletal: edema present + Left upper extremity edema> Right 1+ [place] edema in her lower extremities as well Dx/Plan (1) C. difficile diarrhea Code(s): A04.72 - ENTEROCOLITIS D/T CLOSTRIDIUM DIFFICILE, NOT SPCF RECUR Status: Acute (2) MRSA bacteremia Code(s): R78.81 - BACTEREMIA Status: Acute (3) Anxiety and depression Code(s): F41.9 - ANXIETY DISORDER, UNSPECIFIED; F32.9 - MAJOR DEPRESSIVE DISORDER, SINGLE EPISODE, UNSPECIFIED Status: Chronic Comment: COntinue hoome medications. Anxious but denies SI/HI. Lorazepam PRN for anxiety. (4) CAD (coronary artery disease), [place] coronary artery Code(s): I25.10 - ATHSCL HEART DISEASE OF [place] CORONARY ARTERY W/O ANG PCTRS Status: Chronic Qualifiers: [place] vs. transplanted heart: [place] heart Associated angina: without angina Qualified Code(s): I25.10 - Atherosclerotic heart disease of [place] coronary artery without angina pectoris Comment: Stable, chest pain free. (5) ESRD (end stage renal disease) on dialysis Code(s): N18.6 - END STAGE RENAL DISEASE; Z99.2 - DEPENDENCE ON RENAL DIALYSIS Status: Chronic Comment: R arm fistulla placed 04/02. Also has a triple lumen catheter. Dialysis per nephrology. (6) Hypertension Code(s): I10 - ESSENTIAL (PRIMARY) HYPERTENSION Status: Chronic Qualifiers: Hypertension type: essential hypertension Qualified Code(s): I10 - Essential (primary) hypertension - Plan * MRSA Sepsis from an infected AV fistula- this has been removed- continue Vancomycin SSI * C. Diff Diarrhea- she reports no diarrhea today- continue Metronidazole * ESRD- continue dialysis * Anemia- she is s/p transfusion, will monitor H&H periodically * HTN - blood pressure is labile- will monitor * Awaiting Long Term placement.
[2017-04-12] MEDS: Epoetin (ESRD) 10,000 UNITS/ML VIAL SC SCH (16:10)
[2017-04-12] MEDS: Pravastatin Sodium 20 MG TAB PO SCH (22:02)
[2017-04-13] MEDS: Acetaminophen 325 MG TAB PO PRN ×2 (04:45→22:07)
[2017-04-13] MEDS: metroNIDAZOLE 500 MG in Premix Bag 1 BAG IVPB SCH ×2 (04:49→11:49)
[2017-04-13] MEDS: Escitalopram Oxalate 20 mg Tablet PO SCH (08:37)
[2017-04-13] MEDS: Loratadine 10 MG TAB PO SCH (08:37)
[2017-04-13] MEDS: Aspirin 81 mg Enteric Coated Tablet PO SCH (08:37)
[2017-04-13] MEDS: Cinacalcet HCl 30 MG TAB PO SCH (08:37)
[2017-04-13] MEDS: Saccharomyces boulardii 250 MG CAP PO SCH (08:37)
[2017-04-13] MEDS: Docusate 100 MG CAP PO SCH (08:38)
--- NOTE | 2017-04-13 14:51 | PDOC.PN ---
- Subjective Encounter Start Date: 04/13/17 Encounter Start Time: 14:49 Ms. Rodriguez was seen today in follow-up. She says she had trouble resting last night. She still feels very weak. She walked a few steps with PT today. - Objective Resuscitation Status: Resuscitation Status FULL:Full Resuscitation MAR Reviewed: Yes Vital Signs & Weight: Vital Signs (12 hours) Temp Pulse Pulse Resp BP BP BP 04/13/17 13:56 101 H 22 H 04/13/17 11:20 98.5 F 101 H 28 H 147/63 H 04/13/17 11:18 101 H 147/63 H 04/13/17 09:52 97.9 F 111 H 30 H 04/13/17 08:21 97.9 F 111 H 30 H 147/66 H 04/13/17 06:49 109 H 22 H 04/13/17 04:25 98.3 F 109 H 20 162/72 H Pulse Ox Pulse Ox 04/13/17 13:56 95 04/13/17 11:20 93 L 04/13/17 11:18 93 L 04/13/17 09:52 94 L 04/13/17 08:21 94 L 04/13/17 06:49 96 04/13/17 04:25 93 L Weight Admit Weight 150 lb Weight 173 lb 1 oz Most Recent Monitor Data Heart Rate from ECG 88 NIBP 110/60 NIBP BP-Mean 99 Respiration from ECG 19 SpO2 90 I&O: 04/12/17 04/13/17 04/14/17 06:59 06:59 06:59 Intake Total 1100 680 Output Total 240 440 Balance 860 240 Result Diagrams: 04/12/17 03:52 04/12/17 03:52 Phys Exam - Physical Examination HEENT: PERRLA +rales at both bases Cardiovascular: RRR, no significant murmur Gastrointestinal: soft, non-tender, positive bowel sounds Musculoskeletal: edema present + generalized edema Dx/Plan (1) C. difficile diarrhea Code(s): A04.72 - ENTEROCOLITIS D/T CLOSTRIDIUM DIFFICILE, NOT SPCF RECUR Status: Acute (2) MRSA bacteremia Code(s): R78.81 - BACTEREMIA Status: Acute (3) Anxiety and depression Code(s): F41.9 - ANXIETY DISORDER, UNSPECIFIED; F32.9 - MAJOR DEPRESSIVE DISORDER, SINGLE EPISODE, UNSPECIFIED Status: Chronic Comment: COntinue hoome medications. Anxious but denies SI/HI. Lorazepam PRN for anxiety. (4) CAD (coronary artery disease), [place] coronary artery Code(s): I25.10 - ATHSCL HEART DISEASE OF [place] CORONARY ARTERY W/O ANG PCTRS Status: Chronic Qualifiers: [place] vs. transplanted heart: [place] heart Associated angina: without angina Qualified Code(s): I25.10 - Atherosclerotic heart disease of [place] coronary artery without angina pectoris Comment: Stable, chest pain free. (5) ESRD (end stage renal disease) on dialysis Code(s): N18.6 - END STAGE RENAL DISEASE; Z99.2 - DEPENDENCE ON RENAL DIALYSIS Status: Chronic Comment: R arm fistulla placed 04/02. Also has a triple lumen catheter. Dialysis per nephrology. (6) Hypertension Code(s): I10 - ESSENTIAL (PRIMARY) HYPERTENSION Status: Chronic Qualifiers: Hypertension type: essential hypertension Qualified Code(s): I10 - Essential (primary) hypertension - Plan * MRSA sepsis- improving symptomatically * Continue Vancomycin per SSI with Dialysis * C. Diff Diarrhea- improving- will transition her to oral Flagyl * ESRD- continue HD * Continue PT/OT.
[2017-04-13] MEDS: traMADol HCl 50 MG TAB PO PRN (16:00)
[2017-04-13] MEDS: metroNIDAZOLE 250 MG TAB PO SCH ×2 (16:00→22:06)
[2017-04-13] MEDS: Pravastatin Sodium 20 MG TAB PO SCH (22:06)
[2017-04-13] MEDS: Temazepam 15 MG CAP PO PRN (22:07)
[2017-04-14 05:13] LABS: Hemoglobin 7.9 g/dL (12.0-16.0); Platelet Count 569 thou/uL (130-400)
[2017-04-14 05:14] LABS: #Basophils 0.1 thou/uL (0.0-0.2); #Eosinphils 0.6 thou/uL (0.0-0.7); #Lymphocytes 1.9 thou/uL (1.20-3.40); #Monocytes 0.8 thou/uL (0.11-0.59); #Neutrophils 8.7 thou/uL (1.40-6.50); %Basophils 0.6 % (0.0-1.0); %Eosinophils 4.8 % (0.0-10.0); %Lymphocytes 15.9 % (21.0-51.0); %Monocytes 6.5 % (0.0-10.0); %Neutrophils 72.1 % (42.0-75.0); Hemoglobin 8.1 g/dL (12.0-16.0); Mean Corpuscular HGB CONC 31.8 g/dL (32.0-36.0); Mean Corpuscular Hemoglobin 30.8 pg (27.0-31.0); Mean Corpuscular Volume 96.9 fl (81.0-99.0); Mean Platelet Volume 7.9 fL (7.4-10.4); Platelet Count 559 thou/uL (130-400); RBC Distribution Width 15.9 % (11.5-14.5); Red Blood Cell (RBC) Count 2.62 mill/uL (4.20-5.40); White Blood Cell (WBC) Count 12.1 thou/uL (4.8-10.8)
[2017-04-14 05:30] LABS: Vancomycin, Trough 13.3 ug/mL
[2017-04-14 05:31] LABS: Anion Gap 14 mmol/L (10-20); BUN (Urea Nitrogen) 30 mg/dL (9.8-20.1); Calc. Creatinine Clearance 17 mL/min (70-130); Calcium 7.9 mg/dL (7.8-10.44); Carbon Dioxide 23 mmol/L (23-31); Chloride 102 mmol/L (98-107); Estimated GFR-MDRD 11; Glucose 81 mg/dL (80-115); Potassium 3.6 mmol/L (3.5-5.1); Sodium 135 mmol/L (136-145)
[2017-04-14] MEDS: Midodrine HCl 5 MG TAB PO SCH (06:18)
--- NOTE | 2017-04-14 08:44 | PRG ---
DATE OF SERVICE: 04/14/2017 SUBJECTIVE: Ms. Rodriguez is a 66-year-old white female being followed by the Renal Service for her maintenance hemodialysis. I am at the bedside currently dialyzing Ms. Rodriguez. She seems to be tolerating the said treatment. She was also admitted for line bacteremia. Currently on IV vancomyci n. No new complaints. No chest pain or shortness of breath. PHYSICAL EXAMINATION: VITAL SIGNS: Blood pressure is 148/67, heart rate 109, respiratory rate 18, temperature 98, pulse ox 94%. GENERAL: Noted to be awake, alert, comfortable, not in distress. SKIN: Adequate turgor. HEENT: She has slightly pale conjunctivae, anicteric sclerae. NECK: No neck mass, no carotid bruits, no JVD. CHEST: No deformities. LUNGS: Clear breath sounds. No wheezing, no crackles. HEART: Normal sinus rhythm. No murmur, no gallops or rubs. ABDOMEN: Globular, soft, nontender, no masses. EXTREMITIES: No edema. She has a left groin dialysis catheter. MEDICATIONS: 04/14/2017 - Reviewed. LABORATORY: 04/14/2017 - Hemoglobin is 7.9, hematocrit 25.3. Sodium 135, potassium 3.6, chloride 10 2, carbon dioxide 23, BUN 30, creatinine 3.9, glucose 81, calcium 7.9. Vancomycin level is 13.3. ASSESSMENT AND PLAN: 1. Bacteremia - methicillin-resistant Staphylococcus aureus - currently on IV vancomycin. She will get another redosing today. 2. End-stage renal disease, stable. Tolerating current hemodialysis regimen. Again, fluid removal only as tolerated with this patient. 3. Anemia - we have maintained this patient on a weekly Epogen 10,000 units subcutaneously every wee k. We will be rechecking a basic met and CBC in a.m.
[2017-04-14] MEDS: Cinacalcet HCl 30 MG TAB PO SCH (09:34)
[2017-04-14] MEDS: Carvedilol 6.25 MG TAB PO SCH (09:34)
[2017-04-14] MEDS: Aspirin 81 mg Enteric Coated Tablet PO SCH (09:34)
[2017-04-14] MEDS: Docusate 100 MG CAP PO SCH (09:34)
[2017-04-14] MEDS: metroNIDAZOLE 250 MG TAB PO SCH ×3 (09:35→20:58)
[2017-04-14] MEDS: Loratadine 10 MG TAB PO SCH (09:35)
[2017-04-14] MEDS: Saccharomyces boulardii 250 MG CAP PO SCH (09:35)
[2017-04-14] MEDS: Escitalopram Oxalate 20 mg Tablet PO SCH (09:35)
[2017-04-14 12:13] VITALS: BMI 30.7
[2017-04-14] MEDS ORDERED: Clopidogrel Bisulfate 75 MG TAB ONE (15:30)
[2017-04-14] MEDS ORDERED: Loratadine 10 MG TAB PO PRN (16:37)
--- NOTE | 2017-04-14 16:39 | PDOC.PN ---
- Subjective Encounter Start Date: 04/14/17 Encounter Start Time: 16:38 Ms. Rodriguez was seen today in follow-up. she says she finally is beginning to feel better. She has been less tired today. She also says she missed her Claritin dose this morning, and would like to have it now. - Objective Resuscitation Status: Resuscitation Status FULL:Full Resuscitation MAR Reviewed: Yes Vital Signs & Weight: Vital Signs (12 hours) Temp Pulse Resp BP BP Pulse Ox 04/14/17 13:14 99 20 94 L 04/14/17 12:00 98.0 F 96 16 167/70 H 96 04/14/17 09:34 138/62 04/14/17 08:00 98.0 F 109 H 18 Weight Admit Weight 150 lb Weight 173 lb 1 oz Most Recent Monitor Data Heart Rate from ECG 88 NIBP 110/60 NIBP BP-Mean 99 Respiration from ECG 19 SpO2 90 I&O: 04/13/17 04/14/17 04/15/17 06:59 06:59 06:59 Intake Total 680 Output Total 440 650 Balance 240 -650 Result Diagrams: 04/14/17 04:40 04/14/17 04:40 Phys Exam - Physical Examination HEENT: PERRLA Respiratory: no wheezing, no rales, no rhonchi, clear to auscultation bilateral Cardiovascular: RRR, no significant murmur, no rub Gastrointestinal: soft, non-tender, positive bowel sounds Musculoskeletal: edema present + upper extremity edema- imnproving Neurological: non-focal Dx/Plan (1) C. difficile diarrhea Code(s): A04.72 - ENTEROCOLITIS D/T CLOSTRIDIUM DIFFICILE, NOT SPCF RECUR Status: Acute (2) MRSA bacteremia Code(s): R78.81 - BACTEREMIA Status: Acute (3) Anxiety and depression Code(s): F41.9 - ANXIETY DISORDER, UNSPECIFIED; F32.9 - MAJOR DEPRESSIVE DISORDER, SINGLE EPISODE, UNSPECIFIED Status: Chronic Comment: COntinue hoome medications. Anxious but denies SI/HI. Lorazepam PRN for anxiety. (4) CAD (coronary artery disease), [place] coronary artery Code(s): I25.10 - ATHSCL HEART DISEASE OF [place] CORONARY ARTERY W/O ANG PCTRS Status: Chronic Qualifiers: [place] vs. transplanted heart: [place] heart Associated angina: without angina Qualified Code(s): I25.10 - Atherosclerotic heart disease of [place] coronary artery without angina pectoris Comment: Stable, chest pain free. (5) ESRD (end stage renal disease) on dialysis Code(s): N18.6 - END STAGE RENAL DISEASE; Z99.2 - DEPENDENCE ON RENAL DIALYSIS Status: Chronic Comment: R arm fistulla placed 04/02. Also has a triple lumen catheter. Dialysis per nephrology. (6) Hypertension Code(s): I10 - ESSENTIAL (PRIMARY) HYPERTENSION Status: Chronic Qualifiers: Hypertension type: essential hypertension Qualified Code(s): I10 - Essential (primary) hypertension - Plan * MRSA Sepsis- continue SSI VAncomycin * C. Diff- she is improving, no diarrhea reported * ESRD- continue HD . * HTN- blood pressure is slightly elevated- will monitor, it is noted she is on Midodrine * Awaiting correction placement
[2017-04-14] MEDS: Pravastatin Sodium 20 MG TAB PO SCH (20:58)
[2017-04-14] MEDS: Temazepam 15 MG CAP PO PRN (20:58)
[2017-04-14] MEDS: Acetaminophen 325 MG TAB PO PRN (21:00)
[2017-04-14] MEDS: Ondansetron PF 4 MG/2 ML Vial IVP PRN (21:42)
[2017-04-15 05:41] LABS: #Basophils 0.1 thou/uL (0.0-0.2); #Eosinphils 0.5 thou/uL (0.0-0.7); #Lymphocytes 1.9 thou/uL (1.20-3.40); #Monocytes 0.8 thou/uL (0.11-0.59); #Neutrophils 5.7 thou/uL (1.40-6.50); %Basophils 0.9 % (0.0-1.0); %Eosinophils 5.1 % (0.0-10.0); %Monocytes 8.7 % (0.0-10.0); %Neutrophils 64.3 % (42.0-75.0); Hemoglobin 7.9 g/dL (12.0-16.0); Mean Corpuscular HGB CONC 31.1 g/dL (32.0-36.0); Mean Corpuscular Volume 96.6 fl (81.0-99.0); Mean Platelet Volume 7.8 fL (7.4-10.4); Platelet Count 574 thou/uL (130-400); RBC Distribution Width 15.4 % (11.5-14.5); Red Blood Cell (RBC) Count 2.63 mill/uL (4.20-5.40); White Blood Cell (WBC) Count 8.9 thou/uL (4.8-10.8)
[2017-04-15 06:29] LABS: Anion Gap 9 mmol/L (10-20); BUN (Urea Nitrogen) 20 mg/dL (9.8-20.1); Calc. Creatinine Clearance 24 mL/min (70-130); Carbon Dioxide 29 mmol/L (23-31); Chloride 102 mmol/L (98-107); Estimated GFR-MDRD 17; Glucose 81 mg/dL (80-115); Potassium 3.6 mmol/L (3.5-5.1); Sodium 136 mmol/L (136-145)
[2017-04-15] MEDS: Loratadine 10 MG TAB PO SCH (08:39)
[2017-04-15] MEDS: Docusate 100 MG CAP PO SCH (08:39)
[2017-04-15] MEDS: Cinacalcet HCl 30 MG TAB PO SCH (08:40)
[2017-04-15] MEDS: metroNIDAZOLE 250 MG TAB PO SCH ×3 (08:40→20:38)
[2017-04-15] MEDS: Aspirin 81 mg Enteric Coated Tablet PO SCH (08:40)
[2017-04-15] MEDS: Saccharomyces boulardii 250 MG CAP PO SCH (08:40)
[2017-04-15] MEDS: Escitalopram Oxalate 20 mg Tablet PO SCH (08:40)
[2017-04-15] MEDS: Acetaminophen 325 MG TAB PO PRN (13:11)
--- NOTE | 2017-04-15 15:25 | PDOC.PN ---
- Subjective Encounter Start Date: 04/15/17 Encounter Start Time: 15:24 Ms. Park was seen today in follow-up. She says she is feeling yet a little better today. But still quite weak. - Objective Resuscitation Status: Resuscitation Status FULL:Full Resuscitation MAR Reviewed: Yes Vital Signs & Weight: Vital Signs (12 hours) Temp Pulse Resp BP Pulse Ox 04/15/17 13:22 98 20 96 04/15/17 12:00 98.0 F 102 H 12 119/65 96 04/15/17 08:00 97.5 F L 99 18 96 04/15/17 06:42 91 20 96 Weight Admit Weight 150 lb Weight 172 lb 12.8 oz Most Recent Monitor Data Heart Rate from ECG 88 NIBP 110/60 NIBP BP-Mean 99 Respiration from ECG 19 SpO2 90 I&O: 04/14/17 04/15/17 04/16/17 06:59 06:59 06:59 Output Total 650 350 Balance -650 -350 Result Diagrams: 04/15/17 05:11 04/15/17 05:11 Phys Exam - Physical Examination HEENT: PERRLA Respiratory: no rales, wheezing present Cardiovascular: RRR, no significant murmur, no rub Gastrointestinal: soft, non-tender, positive bowel sounds Musculoskeletal: edema present edema is improving Dx/Plan (1) C. difficile diarrhea Code(s): A04.72 - ENTEROCOLITIS D/T CLOSTRIDIUM DIFFICILE, NOT SPCF RECUR Status: Acute (2) MRSA bacteremia Code(s): R78.81 - BACTEREMIA Status: Acute (3) Anxiety and depression Code(s): F41.9 - ANXIETY DISORDER, UNSPECIFIED; F32.9 - MAJOR DEPRESSIVE DISORDER, SINGLE EPISODE, UNSPECIFIED Status: Chronic Comment: COntinue hoome medications. Anxious but denies SI/HI. Lorazepam PRN for anxiety. (4) CAD (coronary artery disease), [place] coronary artery Code(s): I25.10 - ATHSCL HEART DISEASE OF [place] CORONARY ARTERY W/O ANG PCTRS Status: Chronic Qualifiers: [place] vs. transplanted heart: [place] heart Associated angina: without angina Qualified Code(s): I25.10 - Atherosclerotic heart disease of [place] coronary artery without angina pectoris Comment: Stable, chest pain free. (5) ESRD (end stage renal disease) on dialysis Code(s): N18.6 - END STAGE RENAL DISEASE; Z99.2 - DEPENDENCE ON RENAL DIALYSIS Status: Chronic Comment: R arm fistulla placed 04/02. Also has a triple lumen catheter. Dialysis per nephrology. (6) Hypertension Code(s): I10 - ESSENTIAL (PRIMARY) HYPERTENSION Status: Chronic Qualifiers: Hypertension type: essential hypertension Qualified Code(s): I10 - Essential (primary) hypertension - Plan * C. Diff Diarrhea- she is not longer having diarrhea- a second C. Diff screen was ordered for discharge placement * MRSA sepsis- continue ancomycin during dialysis per SSI * HTN- blood pressure is trending down * ESRD- stable * Continue PT/OT- awaiting discharge placement.
[2017-04-15] MEDS: Temazepam 15 MG CAP PO PRN (20:37)
[2017-04-15] MEDS: Pravastatin Sodium 20 MG TAB PO SCH (20:37)
[2017-04-15] MEDS: traMADol HCl 50 MG TAB PO PRN (20:38)
[2017-04-16 04:39] VITALS: TEMP 98.1
[2017-04-16] MEDS: Midodrine HCl 5 MG TAB PO SCH (05:20)
[2017-04-16] MEDS: Acetaminophen 325 MG TAB PO PRN (05:21)
[2017-04-16 05:47] LABS: #Basophils 0.1 thou/uL (0.0-0.2); #Eosinphils 0.4 thou/uL (0.0-0.7); #Lymphocytes 1.8 thou/uL (1.20-3.40); #Monocytes 0.7 thou/uL (0.11-0.59); #Neutrophils 6.3 thou/uL (1.40-6.50); %Basophils 1.1 % (0.0-1.0); %Eosinophils 4.3 % (0.0-10.0); %Lymphocytes 19.3 % (21.0-51.0); %Monocytes 7.2 % (0.0-10.0); %Neutrophils 68.1 % (42.0-75.0); Mean Corpuscular HGB CONC 31.7 g/dL (32.0-36.0); Mean Corpuscular Hemoglobin 30.7 pg (27.0-31.0); Mean Corpuscular Volume 96.8 fl (81.0-99.0); Platelet Count 592 thou/uL (130-400); RBC Distribution Width 15.6 % (11.5-14.5); White Blood Cell (WBC) Count 9.3 thou/uL (4.8-10.8)
[2017-04-16 05:48] LABS: Vancomycin, Trough 12.8 ug/mL
[2017-04-16 05:49] LABS: Anion Gap 13 mmol/L (10-20); BUN (Urea Nitrogen) 25 mg/dL (9.8-20.1); Calc. Creatinine Clearance 18 mL/min (70-130); Calcium 7.8 mg/dL (7.8-10.44); Carbon Dioxide 24 mmol/L (23-31); Chloride 102 mmol/L (98-107); Estimated GFR-MDRD 12; Glucose 82 mg/dL (80-115); Potassium 3.7 mmol/L (3.5-5.1); Sodium 135 mmol/L (136-145)
[2017-04-16] MEDS ORDERED: Vancomycin HCl 1.25 GM in Sodium Chloride 0.9% 250 ML 250 ML IVPB SCH (09:00)
[2017-04-16] MEDS ORDERED: Vancomycin HCl 500 MG in Sodium Chloride 0.9% 100 ML IVPB SCH (09:00)
[2017-04-16] MEDS ORDERED: Vancomycin HCl 1 GM in Premix Bag 1 BAG IVPB SCH (09:00)
[2017-04-16] MEDS ORDERED: Vancomycin HCl 750 MG in Sodium Chloride 0.9% 250 ML 250 ML IVPB SCH (09:00)
[2017-04-16] MEDS ORDERED: Heparin 10,000 UNITS/ 10 ML VIAL ONE (09:00)
--- NOTE | 2017-04-16 09:15 | PRG ---
DATE OF SERVICE: 04/16/2017 SERVICE: Renal Medicine. SUBJECTIVE: Ms. Rodriguez is a 66-year-old white female with ESRD and was admitted for line bactere dimas. Currently undergoing dialysis. I am at the bedside supervising her dialysis. No other complai nts today. PHYSICAL EXAMINATION: VITAL SIGNS: Blood pressure is 144/64, heart rate 99, respiratory rate is 18, temperature 98.1, puls e ox 94%. GENERAL: Noted to be awake, alert, supine, comfortable, not in distress. SKIN: Adequate turgor. HEENT: She has slightly pale conjunctivae, anicteric sclerae. NECK: No neck mass, no carotid bruits, no JVD. CHEST: No deformities. LUNGS: Decreased breath sounds. HEART: Normal sinus rhythm. No murmur, no gallops, no rubs. ABDOMEN: Globular, soft, nontender, no masses. EXTREMITIES: No edema, no deformities. MEDICATIONS: Of 04/16/2017 was reviewed. LABORATORY DATA: Of 04/16/2017, white count 9.3, hemoglobin 8, sodium 135, potassium 3.7, chloride 1 02, carbon dioxide 24, BUN 25, creatinine 3.64, glucose 82, calcium 7.8. ASSESSMENT AND PLAN: 1. End-stage renal disease, stable. Tolerating current hemodialysis regimen, attempting 2-3 liter f luid removal as tolerated. 2. Line bacteremia - dialysis catheter pulled out. Currently on IV vancomycin. Her most recent van comycin level is 12.8 and for that reason, we will be redosing her at 750 mg IV. 3. Anemia, continuing weekly Epogen.
[2017-04-16 11:58] VITALS: BP 151/67
[2017-04-16] MEDS: Cinacalcet HCl 30 MG TAB PO SCH (12:07)
[2017-04-16] MEDS: Aspirin 81 mg Enteric Coated Tablet PO SCH (12:07)
[2017-04-16] MEDS: Carvedilol 6.25 MG TAB PO SCH (12:07)
[2017-04-16] MEDS: Loratadine 10 MG TAB PO SCH (12:08)
[2017-04-16] MEDS: Saccharomyces boulardii 250 MG CAP PO SCH (12:08)
[2017-04-16] MEDS: Escitalopram Oxalate 20 mg Tablet PO SCH (12:08)
[2017-04-16] MEDS: metroNIDAZOLE 250 MG TAB PO SCH (12:08)
[2017-04-16] MEDS: Docusate 100 MG CAP PO SCH (12:08)
--- NOTE | 2017-04-16 17:13 | PRG ---
DATE OF SERVICE: 04/16/2017 Ms. Rodriguez is doing well today. She has a good thrill and bruit in her right arm fistula. We wi ll plan need of basilic vein transposition fistula in the future. Left arm wound is healing and look s good. The patient is ready to be discharged home anytime. I will see her in the office in next fe w weeks.
--- NOTE | 2017-04-16 21:02 | DIS ---
DATE OF ADMISSION: 04/04/2017 DATE OF DISCHARGE: 04/16/2017 DISCHARGE DISPOSITION: Rehabilitation to [facility] in [place]. CONDITION AT THE TIME OF DISCHARGE: Stable and improved. PRIMARY CARE PHYSICIAN: Rachel Hernandez M.D. DISCHARGE FOLLOWUP: 1. Dr. Trae Morris. 2. Pulmonology, Dr. Galvan. 3. Orthopedics, Dr. Herron. 4. Infectious Disease, Dr. Valdez. 5. Nephrology, Dr. Rucker. INHOUSE CONSULTATIONS: 1. Nephrology, Dr. Rucker. 2. Pulmonary, Dr. Galvan. 3. General Surgery, Dr. Morris. 4. Infectious Disease, Dr. Valdez. 5. Orthopedics, Dr. Herron. DISCHARGE DIAGNOSES: 1. Methicillin-resistant Staphylococcus aureus bacteremia. 2. Clostridium difficile colitis. 3. End-stage renal disease, on hemodialysis. 4. Coronary artery disease. 5. Hypertension. 6. Sepsis. 7. Escherichia coli urinary tract infection. 8. Anemia of chronic kidney disease. 9. Anxiety. 10. Depression. 11. Chronic diastolic cardiac dysfunction. 12. Secondary hyperparathyroidism of renal origin. 13. Chronic wrist fracture. PROCEDURES DONE IN THE HOSPITAL: Include; 1. Hemodialysis. 2. Transthoracic echocardiogram, which showed preserved ejection fraction of 50% to 55% with bundle branch morphology with delayed septal activation and aortic valve sclerosis. 3. Soft tissue of the neck on 04/04/2017, which shows normal epiglottis without any swelling. 4. Hand x-ray in 04/06/2017, which showed subcutaneous soft tissue swelling on the dorsal aspect of the hand without evidence of any acute osseous abnormality and remote healed fracture of the distal l eft radius and ulna. 5. Right femoral vein cuffed tunneled hemodialysis catheter and removal of the old hemodialysis cath eter. 6. Multiple chest x-rays. HISTORY OF PRESENTING ILLNESS: Ms. Rodriguez is a 66-year-old female with history of end- stage renal disease on hemodialysis, who presented to the emergency room with complaints of pain at t he left upper extremity dialysis site along with purulent drainage. She has history of rupture of th e left upper extremity dialysis fistula about 11 days prior to admission, requiring division, repair of the aneurysm and closure of the wound and subsequently she has developed hemorrhage again on 04/01. This was once again treated with ligation of the left upper extremity fistula as well as plac ement of a new fistula at the right upper extremity. She was discharged on 04/03/2017, but came back again for complaints of pain on the left side of her neck and at the fistula site. She was otherwis e hemodynamically stable. Please see admission history and physical for further details. She was ad mitted with a presumptive diagnosis of sepsis given the leukocytosis with left shift. She was also a ctually hypotensive with a blood pressure of 80/62 upon presentation and was admitted initially to cr itical care unit. HOSPITAL COURSE: The patient had a protracted and complicated hospital course. She was treated init ially with broad spectrum IV antibiotics in the critical care unit. It was thought that her hemodial ysis catheter is the likely source and it was removed. Her blood culture grew MRSA and she was start ed on vancomycin per sliding scale with hemodialysis. Infectious Disease was also consulted. Given her history of artificial heart valve, she underwent an echocardiogram, which was equivocal for veget ation. Given the fact that she was going to be treated with vancomycin nevertheless, a JALEESA was not p erformed. The patient also developed diarrhea and tested positive for C. difficile antigen by PCR and was treat ed initially with IV Flagyl, which was later changed to oral Flagyl. She had slow recovery and samantha krishnamurthy was accepted to rehab earlier this morning. She will be discharged shortly on IV vancomycin an d oral metronidazole. Nephrology has cleared the patient for discharge. She has been getting the he modialysis by the new hemodialysis catheter that was placed in. She was seen and examined prior to discharge. PHYSICAL EXAMINATION: VITAL SIGNS: This morning include temperature 98.1, pulse of 92, respirations 20, saturating 96% on room air with blood pressure of 151/67. GENERAL: No acute distress, awake, alert, oriented x3. CHEST: Clear to auscultation without any wheezing, rales or rhonchi. Rate and rhythm is regular wit hout any murmur, rubs or gallops. ABDOMEN: Soft, nontender, nondistended with positive bowel sounds. She has been accepted at [facility] in [place] and transportation will be arrang ed for her with the help of the case management. Time spent in the discharge of this patient 38 minutes.
== END 2017-04-16 15:30 | DRG 263 ==
LOC: ERS 14:41 → CCU 18:27 → SURG A 04-05 10:38 → IMCU/EMU 04-06 14:48 → SURG B 04-08 18:47
PROVIDERS: ADMIT Internal Medicine; ATTEND Internal Medicine
PROC: 05QF0ZZ Repair Left Cephalic Vein, Open Approach (ICD-10-PCS; 2017-04-01)
PROC: 02HV33Z Insertion of Infusion Device into Superior Vena Cava, Percutaneous Approach (ICD-10-PCS; 2017-04-01)
PROC: B54PZZZ Ultrasonography of Bilateral Upper Extremity Veins (ICD-10-PCS; 2017-04-01)
PROC: 031B0ZF Bypass Right Radial Artery to Lower Arm Vein, Open Approach (ICD-10-PCS; 2017-04-02)
PROC: 5A1D70Z Performance of Urinary Filtration, Intermittent, Less than 6 Hours Per Day (ICD-10-PCS; 2017-04-02)
PROC: 5A1D70Z Performance of Urinary Filtration, Intermittent, Less than 6 Hours Per Day (ICD-10-PCS; 2017-04-07)
PROC: 06HY33Z Insertion of Infusion Device into Lower Vein, Percutaneous Approach (ICD-10-PCS; principal; 2017-04-09)
PROC: 30233N1 Transfusion of Nonautologous Red Blood Cells into Peripheral Vein, Percutaneous Approach (ICD-10-PCS; 2017-04-11)
DX: T82.7XXA Infection and inflammatory reaction due to other cardiac and vascular devices, implants and grafts, initial encounter (principal); N18.6 End stage renal disease; A41.02 Sepsis due to Methicillin resistant Staphylococcus aureus; J96.90 Respiratory failure, unspecified, unspecified whether with hypoxia or hypercapnia; G93.41 Metabolic encephalopathy; R65.20 Severe sepsis without septic shock; I13.2 Hypertensive heart and chronic kidney disease with heart failure and with stage 5 chronic kidney disease, or end stage renal disease; A04.72 Enterocolitis due to Clostridium difficile, not specified as recurrent; N39.0 Urinary tract infection, site not specified; N25.81 Secondary hyperparathyroidism of renal origin; I50.32 Chronic diastolic (congestive) heart failure; I12.0 Hypertensive chronic kidney disease with stage 5 chronic kidney disease or end stage renal disease; I25.10 Atherosclerotic heart disease of native coronary artery without angina pectoris; Z99.2 Dependence on renal dialysis; Z95.1 Presence of aortocoronary bypass graft; K21.9 Gastro-esophageal reflux disease without esophagitis; Z85.3 Personal history of malignant neoplasm of breast; D63.1 Anemia in chronic kidney disease; J44.9 Chronic obstructive pulmonary disease, unspecified; B96.20 Unspecified Escherichia coli [E. coli] as the cause of diseases classified elsewhere; F41.9 Anxiety disorder, unspecified; F32.9 Major depressive disorder, single episode, unspecified; Z95.2 Presence of prosthetic heart valve; S52.502D Unspecified fracture of the lower end of left radius, subsequent encounter for closed fracture with routine healing; X58.XXXD Exposure to other specified factors, subsequent encounter; E87.6 Hypokalemia; E66.9 Obesity, unspecified; Z68.25 Body mass index [BMI] 25.0-25.9, adult; T82.838A Hemorrhage due to vascular prosthetic devices, implants and grafts, initial encounter; Z79.82 Long term (current) use of aspirin; Z79.899 Other long term (current) drug therapy; Z90.11 Acquired absence of right breast and nipple; Y83.8 Other surgical procedures as the cause of abnormal reaction of the patient, or of later complication, without mention of misadventure at the time of the procedure
CPT/HCPCS: 36415; 36430; 70360; 70450; 71045; 76001; 80048; 80053; 80170; 80202; 81003; 81015; 82805; 83605; 83630; 85025; 86850; 86900; 86901; 87040; 87045; 87046; 87070; 87077; 87086; 87147; 87149; 87186; 87205; 87324; 87449; 87493; 87899; 90935; 93005; 93306; 93970; 94640; 96361; 96374; 96375; C1752; C1769; G0257; G0365; G8978-GP-CL; G8979-GP-CJ; G8987-GO-CK; G8988-GO-CI; J1642; J1644; J1956; J2001; J2250; J2270; J2405; J2543; J2704; J2720; J3010; J3370; J3480; J3490; J7050; J7620; P9016; Q4081; Q9967; S0020

== ENCOUNTER 2017-05-20 10:36 | Day surgery (SDC) | payer MEDICARE, OTHER ==
--- NOTE | 2017-05-14 15:28 | HP ---
HISTORY OF PRESENT ILLNESS: Ms. Clarissa Rodriguez is a 66-year-old female dialyzes on Friday, ay, and Friday at [facility] [place] at [address]. She saw Dr[address] Rucker. Patient has a left upper arm dialysis fistula placed in the [place]. The patient suffered hemorrhage and I saw her requiring tw o interventions, one to try to salvage this, the other to ligate it after re-bled. This was in 04/15 17. The patient subsequently underwent right arm primary fistula on 04/02/2017, findings were retrog rade antecubital vein was fibrotic, cephalic vein was fibrotic from prior IV access. Nonetheless, I did perform a primary fistula and they did accomodate 3 mm coronary dilators and none larger. It was felt that if this did not mature, she would probably need a graft. Plan at this time is to place a right upper arm fistula revision most likely a prosthetic graft under regional anesthesia versus gene ral. Risks of infection, bleeding, and re-operation explained. She consents. PAST MEDICAL HISTORY: Breast cancer status post mastectomy; end-stage renal disease, dialysis on Fri, Friday and Friday at [place]. Stable coronary artery disease followed by Dr. Eubanks.. GERD. Echocardiogram on 09/28/2016, 50%-55% ejection fraction, grade 1-3 diastolic dysfunction, LV normal size, mildly dilated left atrium, mild tricuspid regurgitation. PAST SURGICAL HISTORY: Hysterectomy 18 years of age without oophorectomy, appendectomy, ileal condui t, coronary artery bypass grafting in [place] followed Dr. Eubanks, undergoing evaluation for renal tr ansplant, left upper arm fistula in [place]. On 03/16/2014, Dr. Sloan did upper endoscopy with biopsi es. On 01/02/2016, Dr. Espinal, right distal femur fracture, ORIF. On 03/21/2016, septic arthritis, right knee, incision and drainage washout. On 11/01/2016, Dr. Herron, right proximal femur fractu re, ORIF, right mastectomy for cancer. Coronary artery bypass grafting two vessel 2003, exploration and attempted repair of a hemorrhaging fistula in left upper arm at two different occasions, more rec ent right arm fistula finding fibrotic vein, now thrombosed. MEDICATIONS: Tramadol, zolpidem, Phenergan, pravastatin, triamterene, , Colace, Sensipar, carve dilol, aspirin, Tylenol. REVIEW OF SYSTEMS: Ten point noncontributory. PHYSICAL EXAMINATION: VITAL SIGNS: Nonweightbearing, 202/94, 87, 99.5 degrees. HEENT: Unremarkable. LUNGS: Clear to auscultation. CARDIAC: Regular rate and rhythm without murmur or gallop. ABDOMEN: Soft, nontender, obese. EXTREMITIES: The left upper extremity wound, almost completely healed. Prolene sutures removed. So me eschar debrided by 1 cm open wound granulating, no infection. Right upper arm surgical wound prox imal volar forearm, well-healed, no wound problems. No thrill or bruit. ASSESSMENT: Thrombosed fistula, right upper arm. PLAN: Exploration, revision, but most likely placement of a prosthetic graft, general anesthesia frank ricardo regional TIVA. Risk of infection, bleeding, reoperation, malfunction, and stage subsequent proce jeremy discussed, she consents.
[2017-05-19 16:53] VITALS: BMI 25.7
[2017-05-20] MEDS ORDERED: Fentanyl 100 MCG/2 ML VIAL ONE ×2 (11:11→11:36)
[2017-05-20] MEDS ORDERED: Midazolam HCl 2 mg/2 ml Vial ONE ×2 (11:11→11:38)
[2017-05-20 11:26] LABS: #Basophils 0.1 thou/uL (0.0-0.2); #Eosinphils 0.6 thou/uL (0.0-0.7); #Lymphocytes 1.5 thou/uL (1.20-3.40); #Monocytes 0.4 thou/uL (0.11-0.59); #Neutrophils 3.7 thou/uL (1.40-6.50); %Eosinophils 9.9 % (0.0-10.0); %Lymphocytes 23.2 % (21.0-51.0); %Neutrophils 58.9 % (42.0-75.0); Hemoglobin 8.6 g/dL (12.0-16.0); Mean Corpuscular Hemoglobin 29.8 pg (27.0-31.0); Mean Corpuscular Volume 93.1 fl (81.0-99.0); Mean Platelet Volume 7.1 fL (7.4-10.4); Platelet Count 440 thou/uL (130-400); RBC Distribution Width 15.3 % (11.5-14.5); Red Blood Cell (RBC) Count 2.88 mill/uL (4.20-5.40); White Blood Cell (WBC) Count 6.3 thou/uL (4.8-10.8)
[2017-05-20] MEDS ORDERED: CEFAZOLIN/Water 2 GM/20 ML SYRINGE ONE (11:34)
[2017-05-20 11:43] LABS: Anion Gap 13 mmol/L (10-20); BUN (Urea Nitrogen) 17 mg/dL (9.8-20.1); Calc. Creatinine Clearance 18 mL/min (70-130); Calcium 8.9 mg/dL (7.8-10.44); Carbon Dioxide 30 mmol/L (23-31); Chloride 100 mmol/L (98-107); Estimated GFR-MDRD 15; Glucose 99 mg/dL (80-115); Potassium 3.7 mmol/L (3.5-5.1); Sodium 139 mmol/L (136-145)
[2017-05-20] MEDS ORDERED: Heparin 5,000 UNITS/ML VIAL ONE (11:50)
[2017-05-20] MEDS ORDERED: Lidocaine 2% 10 ML INJ ONE (11:50)
[2017-05-20] MEDS ORDERED: Bupivacaine HCl 0.5%/Epinephrine 1:200,000/PF 30 ml Vial ONE (11:50)
[2017-05-20] MEDS ORDERED: Protamine Sulfate 50 MG/5 ML VIAL ONE (14:03)
--- NOTE | 2017-05-20 15:32 | OP ---
DATE OF PROCEDURE: 05/20/2017 PREOPERATIVE DIAGNOSES: End-stage renal disease; history of right mastectomy; left arm fistula, stat us post hemorrhage, attempted repair failed with ligation. Right arm previous primary fistula, thrombosed secondary to fibrotic veins. PROCEDURE: Exploration of right proximal volar forearm and wound with fibrotic veins closed with rig ht upper arm dialysis graft from brachial artery above the antecubital fossa to axillary vein. Note brachial artery and axillary vein have excellent caliber. A #[id number] tapered PTFE graft used. SURGEON: Trae Morris M.D. ANESTHESIA: Regional, TIVA. DESCRIPTION OF PROCEDURE: The patient was taken to the operating room where under regional anesthesi a and intravenous sedation, right upper extremity was prepped with ChloraPrep, draped in routine fash ion. Incision made through the old scar, just below the antecubital fossa and the proximal volar for earm, carried down through the skin and subcutaneous tissue, and after the vein was noted to be fibro tic and not useful, the subcutaneous tissues approximated with 3-0 Monocryl, skin with subdermal 4-0 Monocryl, and DermaGlue applied. Incision was made in the distal upper arm, just above the antecubital fossa and brachial artery disse cted free from the deep fascia and surrounded with Silastic vessel loop. Axillary vein exposed up to the right axillary incision, knowing the vein to be of excellent caliber. It was very large. There is a lateral perforating branch control that was noted. Vein controlled proximally and distally wit h Silastic vessel loops. Stab incision was made for control. The patient was given 6000 units hepar in intravenously after a Rachel-Wick tunneler #12 head used to create a tunnel between the brachial ar skye and graft tunneling the PTFE graft between the 2 incisions, placing the 4 mm end over the arteri al inflow just above the antecubital fossa. After adequate heparin circulation time, the brachial ar skye clamped proximally and distally. Longitudinal arteriotomy made sharply and elongated with the Bigg carbone scissors and a 2 cm anastomosis created between the 4 mm end of the graft and the brachial arter y after tapering the graft for a Cobra head anastomosis using continuous suture of 6-0 Prolene. Afte r completing the anastomosis, vascular clamps were released and excellent flow in the graft noted. V ascular clamp placed on the graft. Surgicel applied. Amin Silastic vessel loops used to control th e axillary vein and a large communicating branch controlled with a vascular clamp. Longitudinal veno emily made and extended for a 3 cm anastomosis with a 7 mm of the graft configured for Cobra head anas tomosis with end graft to side axillary vein anastomosis created with continuous suture of 6-0 Prolen e. Prior to tying the final knot arterial inflow released and graft bled of air and then venous cont rol released and there was good flow in the graft evident by Doppler interrogation. Good hemostasis noted. Subcutaneous tissues approximated with 3-0 Monocryl, skin with subdermal 4-0 Monocryl and Desmond maGlue applied. Protamine 25 mg intravenously administered by Anesthesia.
[2017-05-20] MEDS ORDERED: Heparin 10,000 UNITS/ 10 ML VIAL ONE (15:33)
== END 2017-05-20 17:26 ==
LOC: SDC 10:36
PROVIDERS: ATTEND Specialist
PROC: 03170AD Bypass Right Brachial Artery to Upper Arm Vein with Autologous Arterial Tissue, Open Approach (ICD-10-PCS; principal; 2017-05-20)
DX: T82.868A Thrombosis due to vascular prosthetic devices, implants and grafts, initial encounter (principal); I12.0 Hypertensive chronic kidney disease with stage 5 chronic kidney disease or end stage renal disease; N18.6 End stage renal disease; G43.909 Migraine, unspecified, not intractable, without status migrainosus; E78.5 Hyperlipidemia, unspecified; K21.9 Gastro-esophageal reflux disease without esophagitis; F32.9 Major depressive disorder, single episode, unspecified; I25.10 Atherosclerotic heart disease of native coronary artery without angina pectoris; M81.0 Age-related osteoporosis without current pathological fracture; Z91.048 Other nonmedicinal substance allergy status; Z88.1 Allergy status to other antibiotic agents; Z88.8 Allergy status to other drugs, medicaments and biological substances; Z99.2 Dependence on renal dialysis; Z95.1 Presence of aortocoronary bypass graft; Z90.11 Acquired absence of right breast and nipple; Z98.890 Other specified postprocedural states; Z92.3 Personal history of irradiation; Z85.3 Personal history of malignant neoplasm of breast
CPT/HCPCS: 80048; 85025; J0670; J1644; J2250; J2720; J3010; L8670

== ENCOUNTER 2017-06-19 16:43 | Inpatient (IN) | payer MEDICARE, OTHER ==
[2017-06-19 17:59] LABS: Hemoglobin 7.1 g/dL (12.0-16.0); Mean Corpuscular HGB CONC 30.9 g/dL (32.0-36.0); Mean Corpuscular Hemoglobin 27.9 pg (27.0-31.0); Mean Corpuscular Volume 90.3 fl (81.0-99.0); Mean Platelet Volume 7.5 fL (7.4-10.4); Platelet Count 535 thou/uL (130-400); RBC Distribution Width 15.7 % (11.5-14.5); Red Blood Cell (RBC) Count 2.55 mill/uL (4.20-5.40); White Blood Cell (WBC) Count 14.1 thou/uL (4.8-10.8)
--- NOTE | 2017-06-19 18:03 | RAD ---
ONE VIEW CHEST: 06/19/17 COMPARISON: 04/04/17 HISTORY: Hypoxia. FINDINGS: There are sternotomy wires. Heart is enlarged. Pulmonary vessels are within normal limits. There is m ultifocal interstitial and alveolar opacification. Obscuration of the left hemidiaphragm and descendi ng thoracic aorta suggesting a left lower lobe infiltrate. Bilateral pleural effusions are noted. Ove rall, lungs are hyperinflated. No pneumothorax. There is diffuse bone demineralization. Surgical clip s in the right axilla are noted. IMPRESSION: 1. Congestive heart failure. Volume overload. 2. Superimposed pneumonia in the left lung base. Continued surveillance. POS: [facility]
[2017-06-19 18:17] LABS: Anisocytosis SLIGHT = 6-15 cells (100X) (0-5/hpf); Band 2 % (5-11); Hypochromia SLIGHT = 6-15 cells (100X) (0-5/hpf); Lymphocytes 9 % (21-51); MDiff Complete? YES; Monocytes 3 % (0-10); Neutrophil 86 % (42-75); Ovalocytes SLIGHT = 2-5 cells (100X) (0-1/hpf); PLT Morphology Comment Appears Increased; Polychromasia SLIGHT = 2-3 cells (100X) (0-2/hpf)
[2017-06-19 18:23] LABS: ALT (SGPT) 12 U/L (8-55); AST (SGOT) 21 U/L (5-34); Albumin 2.8 g/dL (3.4-4.8); Alkaline Phosphatase 186 U/L (40-150); Anion Gap 16 mmol/L (10-20); BUN (Urea Nitrogen) 22 mg/dL (9.8-20.1); Bilirubin, Total 0.5 mg/dL (0.2-1.2); Calc. Creatinine Clearance 0 mL/min (70-130); Calcium 8.8 mg/dL (7.8-10.44); Carbon Dioxide 27 mmol/L (23-31); Chloride 91 mmol/L (98-107); Estimated GFR-MDRD 11; Globulin 4.2 g/dL (2.4-3.5); Glucose 107 mg/dL (80-115); Magnesium 1.4 mg/dL (1.6-2.6); Potassium 3.8 mmol/L (3.5-5.1); Sodium 130 mmol/L (136-145)
[2017-06-19] MEDS ORDERED: Furosemide 40 MG/4 ML VIAL ONE (19:04)
[2017-06-19] MEDS ORDERED: Acetaminophen 325 MG TAB ONE ×2 (20:06→20:07)
[2017-06-19 20:39] LABS: Troponin I 0.025 ng/mL (< 0.028)
[2017-06-19] MEDS ORDERED: Ondansetron ODT 4 MG TAB SL PRN (21:26)
[2017-06-19] MEDS ORDERED: Acetaminophen 325 MG TAB PO PRN (21:26)
[2017-06-19] MEDS ORDERED: Ondansetron HCl/PF 4 MG/2 ML Vial IVP PRN ×2 (21:26→22:17)
[2017-06-19] MEDS ORDERED: Ondansetron ODT 4 MG TAB PO PRN (22:17)
[2017-06-19] MEDS ORDERED: Vancomycin HCl 1 GM in Sodium Chloride 0.9% 250 ML 250 ML IVPB SCH (23:00)
[2017-06-19 23:05] LABS: Troponin I 0.032 ng/mL (< 0.028)
[2017-06-19] MEDS ORDERED: Piperacillin/Tazobactam 2.25 GM in Sodium Chloride 0.9% 100 ML IVPB SCH (23:15)
[2017-06-19] MEDS ORDERED: Vancomycin HCl 1.5 GM in Sodium Chloride 0.9% 250 ML 300 ML IVPB SCH (23:30)
[2017-06-19] MEDS ORDERED: VANCOMYCIN IVPB PRN (23:35)
[2017-06-19] MEDS ORDERED: Vancomycin HCl 1 GM in Premix Bag 1 BAG IVPB SCH (23:45)
[2017-06-19] MEDS ORDERED: Vancomycin HCl 750 MG in Sodium Chloride 0.9% 250 ML 250 ML IVPB SCH (23:45)
[2017-06-19] MEDS ORDERED: HOLD VANCOMYCIN FOR LEVEL >20 FS SCH (23:45)
--- NOTE | 2017-06-20 02:54 | HP ---
DATE OF ADMISSION: 06/19/2017 PRIMARY CARE PHYSICIAN: Dr. Thai Hassan. PRIMARY UNDERCOVER AGENT: Dr. Rucker. CHIEF COMPLAINT: Shortness of breath and fever. HISTORY OF PRESENT ILLNESS: This is a 66-year-old, female, who presents to [facility] in transfer from [facility] Emergency Department complaining o f increased shortness of breath, low-grade fever that began on the morning of admission. The patient states that the symptoms began somewhat abruptly with an increased air hunger as well as low-grade f ever. The patient denied any recent exposure history, but does state she is a dialysis patient, rece iving hemodialysis on Friday, Friday, and Friday. The patient denies any current noncompliance wi th the dialysis and states that her right upper extremity AV fistula was first accessed on 06/18/2017 . 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 The patient had a new right upper extremity AV fistula place ment; however, the hospital course was complicated due to methicillin-resistant Staphylococcus aureus bacteremia as well as Clostridium difficile colitis. The patient was placed on oral antibiotic ther apy and transferred to [email or web address] in [place] for convalescence. The patient has been receiving physical therapy and has completed her antibiotic regimen for the MRSA and Clostri dium difficile. In the emergency room, the patient underwent general evaluation including chest imag ing showing pulmonary edema as well as left lower lobe infiltrate concerning for pneumonia. The jazzy ent was also noted to have leukocytosis with neutrophilia. The patient was treated in the emergency room with Tylenol, intravenous normal saline and Lasix 40 mg x1. The patient's last echocardiogram s howed preserved ejection fraction of 50%-55% in 03/2017. The patient was noted with elevated BNP ove r 2000; however, there was no specific BNP for comparison in the context of end-stage renal patient. The patient was also noted with hypotension and treated with intravenous normal saline x500 mL. The patient is with a history of orthostatic hypotension, on chronic midodrine therapy. The patient norwood s state that she has had pneumonia within the last 6-8 months and received a pneumonia vaccination. The patient admits to some generalized weakness, shortness of breath and oxygen requirement up to 3 l iters per minute by nasal cannula with O2 saturation in the mid 80% range, increasing to the upper 90 % range with oxygen supplementation. PAST MEDICAL HISTORY: 1. End-stage renal disease with hemodialysis, Friday, Friday, Friday through . 2. History of breast cancer, status post right mastectomy. 3. Left upper extremity thrombosed and aneurysmal AV fistula, status post revision and subsequent fa ilure. 4. Coronary artery disease. 5. History of myocardial infarction. 6. Gastroesophageal reflux disease. 7. Hyperlipidemia. 8. Deconditioning. 9. Osteoporosis. 10. Orthostatic hypotension with chronic midodrine. 11. Diastolic dysfunction with preserved ejection fraction of 50%-55%. 12. History of methicillin-resistant Staphylococcus bacteremia, suspected from infected AV fistula. 13. Status post Clostridium difficile colitis. PAST SURGICAL HISTORY: 1. Status post hysterectomy. 2. Status post appendectomy. 3. Status post ileal conduit. 4. Status post coronary artery bypass grafting. 5. Status post revision of left upper extremity AV fistula with aneurysmal repair with subsequent fa ilure. 6. Status post right upper extremity AV fistula placement, currently functioning. 7. Status post open reduction and internal fixation of femur fracture. 8. Status post right knee incision and drainage with washout. 9. Status post right proximal humeral fracture with open reduction and internal fixation. 10. Status post right mastectomy. CURRENT MEDICATIONS: 1. Enteric-coated aspirin 81 mg 1 tablet p.o. daily. 2. Vitamin B complex 1 tablet p.o. daily. 3. Calcium acetate 667 mg p.o. t.i.d. 4. Coreg 12.5 mg p.o. Friday, Friday, and Friday. 5. Sensipar 30 mg p.o. daily. 6. Procrit 10,000 units subcutaneously weekly. 7. Lexapro 20 mg p.o. daily. 8. DuoNebs 3 mL nebulized q.6 hours p.r.n. 9. Claritin 10 mg p.o. at bedtime. 10. Midodrine 10 mg p.o. Friday, Friday, and Friday. 11. Omeprazole 20 mg p.o. daily. 12. Pravachol 10 mg p.o. at bedtime. 13. Restoril 15 mg p.o. at bedtime. 14. Tramadol 50 mg p.o. every 6 hours p.r.n. pain. ALLERGIES: To LIPITOR, CEFUROXIME, MEPERIDINE, and MACROBID. FAMILY HISTORY: Positive for hypertension and coronary artery disease. SOCIAL HISTORY: Patient resides in [place], [place] at [facility]. No current alcohol, tobacco or illicit drug use. REVIEW OF SYSTEMS: The following complete review of systems was negative, unless otherwise mentioned in the HPI or below: Constitutional: Weight loss or gain, ability to conduct usual activities. Sk in: Rash, itching. Eyes: Double vision, pain. ENT/Mouth: Nose bleeding, neck stiffness, pain, te nderness. Cardiovascular: Palpitations, dyspnea on exertion, orthopnea. Respiratory: Shortness of breath, wheezing, cough, hemoptysis, fever or night sweats. Gastrointestinal: Poor appetite, abdom inal pain, heartburn, nausea, vomiting, constipation, or diarrhea. Genitourinary: Urgency, frequenc y, dysuria, nocturia. Musculoskeletal: Pain, swelling. Neurologic/Psychiatric: Anxiety, depressio n. Allergy/Immunologic: Skin rash, bleeding tendency. Otherwise negative except as stated per HPI. PHYSICAL EXAMINATION: VITAL SIGNS: Currently, blood pressure 89/53, pulse 88, respiratory rate 31, temperature 99.4 degree s Fahrenheit, and O2 saturation 99% on 3 liters per minute by nasal cannula. GENERAL APPEARANCE: This is a 66-year-old, female, alert and oriented x3, pleasant, respon sive, in mild respiratory distress. HEENT: Pupils are equal, round, and reactive to light and accommodation. Extraocular muscles are in tact. No scleral icterus. No conjunctival injection. Nares patent. Nasal cannula in place. OP is clear. Oral mucosa, dry appearing. NECK: Supple. No cervical adenopathy, no thyromegaly, no carotid bruits, no JVD appreciated. Cervi clementina spine with full active and passive range of motion. No meningeal signs appreciated. CHEST: Diminished breath sounds in the bases with bibasilar crackles. Coarse breath sounds in the l eft lower lung griffiths. CARDIOVASCULAR: S1, S2 with a 2/6 systolic ejection murmur, loudest in the right upper sternal borde r. No gallop or rub. ABDOMEN: Obese, soft, nontender, and nondistended. Bowel sounds are positive in all four quadrants. There is no hepatosplenomegaly, no abdominal bruits, no rebound or guarding appreciated. EXTREMITIES: Warm and dry with fair turgor. Mild tenderness to palpation in the popliteal fossa of the right lower extremity. Mild edema distally. Pulses are palpable distally at the dorsalis pedis, posterior tibial, and popliteal arteries bilaterally. Capillary refill is less than 2 seconds. Rig ht upper extremity AV fistula in place with palpable thrill. NEUROLOGIC: Cranial nerves II-XII are grossly intact. No focal or lateralizing signs appreciated. PERTINENT LABORATORY AND X-RAY FINDINGS: Sodium 130, potassium 3.8, chloride 91, CO2 of 27, BUN 22, creatinine 3.96 with estimated GFR of 11, glucose 107, calcium 8.8. Magnesium 1.4. Alkaline phospha tase 186. BNP 2353. Troponin I 0.025. Albumin 2.8. CBC showed a white blood cell count of 14.1, h emoglobin 7, hematocrit 23, platelet count 535, 86% neutrophils and 2% bands. Portable chest x-ray d ated 06/19/2017 showed pulmonary edema bilaterally. Obscured left hemidiaphragm suggestive of left l ower lobe infiltrate. Bilateral pleural effusions noted. EKG dated 06/19/2017 by my interpretation shows sinus mechanism with heart rates in the 80s. Premature atrial contractions noted. Attenuated R waves in the precordial leads. Normal axis. No acute ST-T wave changes appreciated. ASSESSMENT AND PLAN: 1. Sepsis. Suspect secondarily to developing left lower lobe pneumonia. We will continue general s epsis protocol. See #2 below for details on management. Serial lactate assessment. 2. Left lower lobe pneumonia. Suspect healthcare-associated pneumonia given patient's protracted ho spital course and current living situation. Continue vancomycin 1 gram IV q.12 hours adjusting dosag e for end-stage renal disease. Continue Zosyn 2.25 grams IV q.8 hours. DuoNebs q.4 hours p.r.n. Bl ood cultures pending x2. 3. Pulmonary edema. Suspect multifactorial. Last 2D transthoracic echocardiogram showing ejection fraction of 50%-55%. Suspect diastolic dysfunction. We will continue with hemodialysis for volume m anagement. 4. Hypotension. Suspect multifactorial and secondarily to sepsis and left lower lobe pneumonia. Ho ld all antihypertensive medications. Intravenous normal saline as needed to maintain systolic greate r than 90. Serial blood pressure monitoring. 5. Hyponatremia. Suspect secondarily to volume overload. Repeat sodium level after hemodialysis. 6. End-stage renal disease with hemodialysis. We will consult Nephrology service for ongoing timing of maintenance hemodialysis. We will need to monitor closely given patient's hypotension. 7. Chronic normocytic anemia secondary to chronic kidney disease. We will continue serial H&H monit oring. No evidence of acute blood loss. Continue Procrit 10,000 units subcutaneously q.7 days. Rep eat CBC in the a.m. 8. Prophylaxis. Sequential compression devices while in bed. Pepcid 20 mg p.o. b.i.d. PT evaluati on for functional assessment. General fall risk precautions. 9. Code status is FULL. Surrogate medical decision maker is patient's sister, Lily Jansen.
[2017-06-20] MEDS: Acetaminophen 500 MG TAB PO PRN ×3 (03:57→22:53)
[2017-06-20 05:43] LABS: ALT (SGPT) 11 U/L (8-55); AST (SGOT) 20 U/L (5-34); Albumin 2.5 g/dL (3.4-4.8); Alkaline Phosphatase 217 U/L (40-150); Anion Gap 15 mmol/L (10-20); BUN (Urea Nitrogen) 26 mg/dL (9.8-20.1); Bilirubin, Total 0.6 mg/dL (0.2-1.2); Calc. Creatinine Clearance 13 mL/min (70-130); Calcium 8.3 mg/dL (7.8-10.44); Carbon Dioxide 26 mmol/L (23-31); Chloride 94 mmol/L (98-107); Estimated GFR-MDRD 10; Globulin 3.7 g/dL (2.4-3.5); Glucose 104 mg/dL (80-115); Magnesium 1.3 mg/dL (1.6-2.6); Phosphorus 2.4 mg/dL (2.3-4.7); Potassium 3.8 mmol/L (3.5-5.1); Protein, Total 6.2 g/dL (6.0-8.3); Sodium 131 mmol/L (136-145)
[2017-06-20 06:00] LABS: Free T4 (Free Thyroxine) 0.94 ng/dL (0.70-1.48); Thyroid Stimulating Hormone 0.8132 uIU/mL (0.35-4.94)
[2017-06-20] MEDS: Piperacillin/Tazobactam 2.25 GM in Sodium Chloride 0.9% 100 ML IVPB SCH ×3 (06:22→21:08)
[2017-06-20 06:37] LABS: Hemoglobin 6.3 g/dL (12.0-16.0); Mean Corpuscular HGB CONC 30.9 g/dL (32.0-36.0); Mean Corpuscular Hemoglobin 27.5 pg (27.0-31.0); Mean Platelet Volume 7.6 fL (7.4-10.4); Platelet Count 422 thou/uL (130-400); RBC Distribution Width 15.9 % (11.5-14.5); Red Blood Cell (RBC) Count 2.31 mill/uL (4.20-5.40); White Blood Cell (WBC) Count 14.5 thou/uL (4.8-10.8)
[2017-06-20 06:46] LABS: Band 8 % (5-11); Lymphocytes 16 % (21-51); MDiff Complete? YES; Neutrophil 76 % (42-75)
[2017-06-20] MEDS: Midodrine HCl 5 MG TAB PO SCH (10:15)
[2017-06-20] MEDS: Famotidine 20 MG TAB PO SCH (10:15)
[2017-06-20] MEDS: Saccharomyces boulardii 250 MG CAP PO SCH (10:16)
[2017-06-20 10:24] LABS: HBSAg Index 0.31 S/CO (0-0.99); Hep B Surf Ag Non-Reactive S/CO (NonReactive)
--- NOTE | 2017-06-20 10:35 | PRG ---
DATE OF SERVICE: 06/20/2017 RENAL MEDICINE SUBJECTIVE: Ms. Rodriguez is a 66-year-old white female with ESRD and admitted for shortness of rambo ath. She was found to be in congestive heart failure. In addition, she was also noted to be symptom atically anemic. She is currently undergoing hemodialysis. I am attempting to max out fluid removal as tolerated by the patient. Her repeat hemoglobin today was 6.3 and the plan is to give her 2 unit s of packed RBC during dialysis. PHYSICAL EXAMINATION: VITAL SIGNS: Blood pressure is noted at 106/57, heart rate 82, respiratory rate 20, pulse ox 100%, t emperature 98. GENERAL: Awake, supine, comfortable, but somewhat lethargic. SKIN: Adequate turgor. HEENT: She has pale conjunctivae, anicteric sclerae. NECK: No neck mass, no carotid bruits, no JVD. CHEST: No deformities. LUNGS: Decreased breath sounds, bibasilar crackles. HEART: Normal sinus rhythm. No murmurs, no gallops, no rubs. ABDOMEN: Globular, soft, nontender, no masses. Positive for urostomy. EXTREMITIES: Positive for edema. MEDICATIONS: Medications of 06/20/2017 reviewed. LABORATORY DATA: Laboratories of 06/20/2017; white count 14.5, hemoglobin 6.3. Sodium 131, potassiu m 2.8, chloride 94, carbon dioxide 26, BUN 26, creatinine 4.43, magnesium 1.3, phosphorus 2.4, AST 20 , ALT 11, and albumin 2.5. IMAGING DATA: Chest x-ray - shows CHF. ASSESSMENT AND PLAN: 1. Anemia - we will transfuse 2 units of packed RBC. Initiate Epogen 10,000 units subcu every week. 2. End-stage renal disease, stable. Continuing Friday, Friday, and Friday hemodialysis. Maxing out fluid due to the congestive heart failure. 3. Congestive heart failure. We will max out fluid removal with dialysis. I plan to do another marlon lytic intervention with this patient for further fluid removal in a.m. 4. If AV fistula/graft continues to work well, consider surgical referral for removal of the femoral dialysis catheter. 5. Recheck basic metabolic panel and CBC in a.m.
[2017-06-20 11:12] LABS: Vancomycin, Random 25.2 ug/mL (See Comment)
[2017-06-20] MEDS ORDERED: Magnesium Sulfate 1 GM, Admixture Fee 1 EACH in Sodium Chloride 0.9% 100 ML IVPB SCH (13:15)
--- NOTE | 2017-06-20 13:21 | PQF ---
PATO MARIE MALIK MD [id number] [facility]-294 [id number] CLINICAL DOCUMENTATION IMPROVEMENT CLARIFICATION FORM: ICD-10 Updated PLEASE DO AN ADDENDUM TO THE PROGRESS NOTE WITH ANY DOCUMENTATION UPDATES OR ADDITIONS AND CARRY THROUGH TO DC SUMMARY. THANK YOU. DATE: 06-20-17 ATTN: DR. DUENAS Please exercise your independent, professional judgment in responding to the clarification form. Clinical indicators are provided on the bottom of this form for your review Please check appropriate box(s): HEART FAILURE: A. TYPE: [ ] Systolic / HFrEF [ ] Diastolic / HFpEF [ ] Combined Systolic / Diastolic B. ACUITY [ ] Acute [ ] Acute on Chronic [ ] Chronic [ ] Other diagnosis [ ] Unable to determine For continuity of documentation, please document condition throughout progress notes and discharge summary. Thank You. CLINICAL INDICATORS - SIGNS / SYMPTOMS / LABS ER: NEW DX OF CHF TODAY IN [facility] - HYPOXIC AT [place] CHF EXACERBATION H&P: PRESERVED EF 50-55% W/ DIASTOLIC DYSFUNCTION 06-19 CXR: CHF, VOLUME OVERLOAD PN 06-20 DR. FLOR : CHF - WE WILL MAX OUT FLUID REMOVAL W/ DIALYSIS RISKS: ER: NEW DX OF CHF TODAY IN [facility] H&P: CAD; ESRD; HX OF CT; TREATMENTS: ER: LASIX X 1 - BECAME HYPOTENSIVE - GAVE SMALL NS BOLUS CARDIAC MONITORING PN 06-20 DR. FLOR : CHF - WE WILL MAX OUT FLUID REMOVAL W/ DIALYSIS THANK YOU, TAMARA (This form is maintained as a part of the permanent medical record) 2014 [employer]. All Rights Reserved Tamara Merritt RN, BS [email or web address] Cell [facility]
--- NOTE | 2017-06-20 13:31 | PQF ---
PATO MARIE MALIK MD [id number] [id number] CLINICAL DOCUMENTATION IMPROVEMENT CLARIFICATION FORM: ICD-10 Updated PLEASE DO AN ADDENDUM TO THE PROGRESS NOTE WITH ANY DOCUMENTATION UPDATES OR ADDITIONS AND CARRY THROUGH TO DC SUMMARY. THANK YOU. DATE: 06-20-17 ATTN: DR. DUENAS Please exercise your independent, professional judgment in responding to the clarification form. Clinical indicators are provided on the bottom of this form for your review Please check appropriate box(s): [ ] Empirically treating Gram Negative Pneumonia [ ] Empirically treating Anaerobic Pneumonia [ ] Simple Pneumonia (community acquired - nosocomial) [ ] Pneumonia of unknown etiology [ ] Other diagnosis [ ] Unable to determine For continuity of documentation, please document condition throughout progress notes and discharge summary. Thank You. CLINICAL INDICATORS - SIGNS / SYMPTOMS / LABS ER: TEMP 100.0 ORAL RESP 24 - 34 HYPOXIA H&P: [facility]NA - [facility] GIV[facility] PT'S PROTRACTED HOSPITAL COURSE AND CURRENT LIVING SITUATION H&P: RISK FACTORS H&P: ESRD ON DIALYSIS RECENT HOSPITALIZATION MAR 2017 RESIDES AT NURSING FACILITY TREATMENTS: MAR: ZOSYN IV 06-19 / 06-20 VANCOMYCIN IV 06-19- OXYGEN MONITORING - 3LNC THANK YOU, TAMARA (This form is maintained as a part of the permanent medical record) 2014 [employer]. All Rights Reserved Tamara Merritt RN, BS [email or web address] Cell [facility]
[2017-06-20] MEDS: traMADol HCl 50 MG TAB PO PRN ×2 (14:30→21:07)
--- NOTE | 2017-06-20 18:07 | PDOC.PN ---
- Subjective Encounter Start Date: 06/20/17 Encounter Start Time: 16:00 Patient seen and examined. 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 No overnight events - Objective Resuscitation Status: Resuscitation Status FULL:Full Resuscitation MAR Reviewed: Yes Vital Signs & Weight: Vital Signs (12 hours) Temp Pulse Pulse Resp BP BP Pulse Ox 06/20/17 14:31 86 16 06/20/17 13:49 90 119/57 L 06/20/17 07:15 98.3 F 81 18 118/52 L 97 06/20/17 07:09 100 06/20/17 07:08 82 20 Pulse Ox 06/20/17 14:31 06/20/17 13:49 99 06/20/17 07:15 06/20/17 07:09 06/20/17 07:08 Weight Weight 152 lb 11.2 oz I&O: 06/19/17 06/20/17 06/21/17 06:59 06:59 06:59 Intake Total 810 350 Output Total 50 Balance 760 350 Result Diagrams: 06/21/17 04:35 06/21/17 04:35 EKG Reviewed by me: Yes (Tele SR) Phys Exam - Physical Examination Pt in mild distress due to chronic RLE pain HEENT: PERRLA, moist MMs Neck: no nodes, no JVD Respiratory: no wheezing, no rhonchi Bibasilar rales, Symmetrical Cardiovascular: RRR, no rub no heaves/pulsations Gastrointestinal: soft, non-tender, no distention, positive bowel sounds Musculoskeletal: no edema Neurological: non-focal, normal sensation, moves all 4 limbs Psychiatric: normal affect, A&O x 3 Dx/Plan - Plan PT/OT, DVT proph w/SCDs IMPRESSION: 1. Acute hypoxic resp failure due to Acute on chronic diastolic CHF exacerbation - Stage C/HCA Pneumonia ?bacterial 2. Sepsis due to pneumonia 3. Hypomagnesemia 4. Anemia - prob due to ESRD s/p 2 units PRBC today 5. ESRD on dialysis / Elevated troponins due to demand ischemia/ Other issues per H&P PLAN: * s/p 2 units PRBC * Cont Tele monitoring * Dialysis per Nephro * Cont Atbx * CXR in AM * AM labs * Cont current meds as below * Replace Mg Review of Systems - Review of Systems Respiratory: negative: Cough, Dry, Shortness of Breath, Hemoptysis, SOB with Excertion, Pleuritic Pain, Sputum, Wheezing Cardiovascular: negative: chest pain, palpitations, orthopnea, paroxysmal nocturnal dyspnea, edema, light headedness, other - Medications/Allergies Allergies/Adverse Reactions: Allergies Allergy/AdvReac Type Severity Reaction Status Date / Time atorvastatin calcium Allergy Verified 06/19/17 21:31 [From Lipitor] cefuroxime axetil Allergy Verified 06/19/17 21:31 [From Ceftin] meperidine HCl [From Demerol] Allergy Verified 06/19/17 21:31 nitrofurantoin Allergy Verified 06/19/17 21:31 [From Macrodantin] Medications: Current Medications Acetaminophen (Tylenol) 1,000 mg PO Q6H PRN PRN Reason: Headache/Fever or Mild Pain Last Admin: 06/20/17 10:14 Dose: 1,000 mg Acetaminophen (Tylenol) 650 mg PO Q4H PRN PRN Reason: Headache/Fever or Mild Pain Albuterol/Ipratropium (Duoneb) 3 ml NEB [id number] [facility] Last Admin: 06/20/17 14:31 Dose: 3 ml Famotidine (Pepcid) 20 mg PO DAILY [facility] Last Admin: 06/20/17 10:15 Dose: 20 mg Piperacillin Sod/Tazobactam (Sod 2.25 gm/ Sodium Chloride) 100 mls @ 200 mls/ hr IVPB Q8HR [facility] Last Admin: 06/20/17 14:30 Dose: 100 mls Vancomycin HCl 1 gm/ Device 200 mls @ 200 mls/hr IVPB WILLCALL [facility] Vancomycin HCl 750 mg/ Sodium (Chloride) 250 mls @ 250 mls/hr IVPB WILLCALL [facility] Vancomycin HCl 500 mg/ Sodium (Chloride) 100 mls @ 100 mls/hr IVPB [facility]CALL [facility] Vancomycin HCl 250 mg/ Sodium (Chloride) 100 mls @ 100 mls/hr IVPB [facility]CALL [facility] Midodrine (Proamatine) 10 mg PO MWF [facility] Last Admin: 06/20/17 10:15 Dose: 10 mg Miscellaneous Medication (Pharmacy To Dose) 1 each IVPB PRN PRN PRN Reason: SEPSIS Hold Vancomycin For (Level >20) 0 each FS .AT DIALYSIS [facility] Ondansetron HCl (Zofran Odt) 4 mg PO Q6H PRN PRN Reason: Nausea/Vomiting Ondansetron HCl (Zofran) 4 mg IVP Q6H PRN PRN Reason: Nausea/Vomiting Saccharomyces Boulardii (Florastor) 250 mg PO DAILY [facility] Last Admin: 06/20/17 10:16 Dose: 250 mg Sodium Chloride (Flush - Normal Saline) 10 ml IVF Q12HR [facility] Last Admin: 06/20/17 10:16 Dose: 10 ml Sodium Chloride (Flush - Normal Saline) 10 ml IVF PRN PRN PRN Reason: Saline Flush Tramadol HCl (Ultram) 50 mg PO Q6H PRN PRN Reason: Moderate Pain (4-6) Last Admin: 06/20/17 14:30 Dose: 50 mg
[2017-06-20] MEDS ORDERED: Temazepam 15 MG CAP PO PRN (22:20)
[2017-06-21 05:34] LABS: #Eosinphils 0.4 thou/uL (0.0-0.7); #Lymphocytes 1.4 thou/uL (1.20-3.40); #Monocytes 0.8 thou/uL (0.11-0.59); #Neutrophils 9.5 thou/uL (1.40-6.50); %Basophils 0.1 % (0.0-1.0); %Eosinophils 3.7 % (0.0-10.0); %Lymphocytes 11.9 % (21.0-51.0); %Monocytes 6.4 % (0.0-10.0); %Neutrophils 77.9 % (42.0-75.0); Mean Corpuscular HGB CONC 31.5 g/dL (32.0-36.0); Mean Corpuscular Hemoglobin 28.4 pg (27.0-31.0); Mean Corpuscular Volume 90.1 fl (81.0-99.0); Mean Platelet Volume 7.9 fL (7.4-10.4); Platelet Count 408 thou/uL (130-400); RBC Distribution Width 15.6 % (11.5-14.5); White Blood Cell (WBC) Count 12.2 thou/uL (4.8-10.8)
[2017-06-21 06:12] LABS: Anion Gap 14 mmol/L (10-20); BUN (Urea Nitrogen) 18 mg/dL (9.8-20.1); Calc. Creatinine Clearance 21 mL/min (70-130); Calcium 8.5 mg/dL (7.8-10.44); Carbon Dioxide 29 mmol/L (23-31); Chloride 99 mmol/L (98-107); Estimated GFR-MDRD 16; Glucose 79 mg/dL (80-115); Magnesium 1.8 mg/dL (1.6-2.6); Potassium 3.7 mmol/L (3.5-5.1); Sodium 138 mmol/L (136-145)
[2017-06-21] MEDS: Piperacillin/Tazobactam 2.25 GM in Sodium Chloride 0.9% 100 ML IVPB SCH ×3 (06:13→20:48)
[2017-06-21] MEDS: traMADol HCl 50 MG TAB PO PRN ×3 (06:22→20:47)
[2017-06-21 07:54] LABS: Vancomycin, Trough 15.6 ug/mL
[2017-06-21] MEDS: Vancomycin HCl 250 MG in Sodium Chloride 0.9% 100 ML IVPB SCH (09:06)
[2017-06-21] MEDS ORDERED: Milk Of Magnesia 30 ML UDCUP PO PRN (11:27)
[2017-06-21] MEDS ORDERED: Senokot 8.6 MG TAB PO PRN (11:27)
[2017-06-21] MEDS ORDERED: hydrALAZINE 20 MG/ML VIAL SLOW IVP PRN (11:27)
[2017-06-21] MEDS ORDERED: Loratadine 10 MG TAB PO PRN (11:27)
[2017-06-21] MEDS ORDERED: Artificial Tears 18 DROP/0.9 ML EA EYE PRN (11:27)
[2017-06-21] MEDS ORDERED: Sodium Chloride 0.65% Nasal 44 ML BOT EA NARE PRN (11:27)
[2017-06-21] MEDS ORDERED: Eucerin (Mineral Oil/Petrolatum,White) 30 gm Jar TOP PRN (11:27)
[2017-06-21] MEDS ORDERED: Diabetic Tussin 200 MG/10 ML UDCUP PO PRN (11:27)
[2017-06-21] MEDS ORDERED: Chloraseptic Spray 180 ml Bottle PO PRN (11:27)
[2017-06-21] MEDS ORDERED: Loperamide HCl 2 MG CAP PO PRN (11:27)
[2017-06-21] MEDS ORDERED: Mag-Al 1200 mg/1200 mg/30 ML UDCUP PO PRN (11:27)
[2017-06-21] MEDS: Midodrine HCl 5 MG TAB PO SCH (11:28)
[2017-06-21] MEDS: Saccharomyces boulardii 250 MG CAP PO SCH (11:28)
--- NOTE | 2017-06-21 11:29 | PDOC.PN ---
- Subjective Encounter Start Date: 06/21/17 Encounter Start Time: 08:40 -: old records requested/rev pt seen in dialysis, doing well, no fever, less dyspnea Patient seen and examined. No new complaints. No overnight events - Objective Resuscitation Status: Resuscitation Status FULL:Full Resuscitation MAR Reviewed: Yes Vital Signs & Weight: Vital Signs (12 hours) Temp Pulse Resp BP Pulse Ox 06/21/17 11:10 99 06/21/17 11:04 90 20 06/21/17 06:23 76 16 111/54 L 06/21/17 04:00 97.9 F 71 14 97/45 L 97 06/21/17 00:15 16 93 L Weight Weight 153 lb 0.013 oz I&O: 06/20/17 06/21/17 06/22/17 06:59 06:59 06:59 Intake Total 810 1050 Output Total 50 0 Balance 760 1050 Result Diagrams: 06/21/17 04:35 06/21/17 04:35 EKG Reviewed by me: Yes Phys Exam - Physical Examination Constitutional: NAD HEENT: PERRLA, moist MMs, sclera anicteric Neck: no JVD, supple Respiratory: no wheezing, no rales, no rhonchi Cardiovascular: RRR, no significant murmur, no rub Gastrointestinal: soft, non-tender, no distention, positive bowel sounds Musculoskeletal: no edema, pulses present Neurological: non-focal, normal sensation Lymphatic: no nodes Psychiatric: normal affect Skin: no rash, normal turgor Dx/Plan (1) Acute on chronic diastolic (congestive) heart failure Code(s): I50.33 - ACUTE ON CHRONIC DIASTOLIC (CONGESTIVE) HEART FAILURE Status : Acute (2) Demand ischemia Code(s): I24.8 - OTHER FORMS OF ACUTE ISCHEMIC HEART DISEASE Status: Acute (3) Hyponatremia Code(s): E87.1 - HYPO-OSMOLALITY AND HYPONATREMIA Status: Acute (4) Left lower lobe pneumonia Code(s): J18.1 - LOBAR PNEUMONIA, UNSPECIFIED ORGANISM Status: Acute (5) Sepsis Code(s): A41.9 - SEPSIS, UNSPECIFIED ORGANISM Status: Acute (6) Anemia in chronic kidney disease Code(s): N18.9 - CHRONIC KIDNEY DISEASE, UNSPECIFIED; D63.1 - ANEMIA IN CHRONIC KIDNEY DISEASE Status: Chronic Qualifiers: Chronic kidney disease stage: on chronic dialysis Qualified Code(s): N18.6 - End stage renal disease; D63.1 - Anemia in chronic kidney disease; D63.1 - Anemia in chronic kidney disease; Z99.2 - Dependence on renal dialysis; Z99.2 - Dependence on renal dialysis; Z99.2 - Dependence on renal dialysis; Z99.2 - Dependence on renal dialysis Comment: Trending down after surgical procedures. Still <8 today. Monitor. EPO w HD. (7) Anxiety and depression Code(s): F41.9 - ANXIETY DISORDER, UNSPECIFIED; F32.9 - MAJOR DEPRESSIVE DISORDER, SINGLE EPISODE, UNSPECIFIED Status: Chronic Comment: COntinue hoome medications. Anxious but denies SI/HI. Lorazepam PRN for anxiety. (8) CAD (coronary artery disease) Code(s): I25.10 - ATHSCL HEART DISEASE OF [place] CORONARY ARTERY W/O ANG PCTRS Status: Chronic (9) ESRD (end stage renal disease) on dialysis Code(s): N18.6 - END STAGE RENAL DISEASE; Z99.2 - DEPENDENCE ON RENAL DIALYSIS Status: Chronic Comment: R arm maldonadoulla placed 04/02. Also has a triple lumen catheter. Dialysis per nephrology. (10) Hypertension Code(s): I10 - ESSENTIAL (PRIMARY) HYPERTENSION Status: Chronic Qualifiers: Hypertension type: essential hypertension Qualified Code(s): I10 - Essential (primary) hypertension (11) Macrocytosis Code(s): D75.89 - OTHER SPECIFIED DISEASES OF BLOOD AND BLOOD-FORMING ORGANS Status: Chronic (12) Orthostatic hypotension Code(s): I95.1 - ORTHOSTATIC HYPOTENSION Status: Chronic (13) Secondary hyperparathyroidism of renal origin Code(s): N25.81 - SECONDARY HYPERPARATHYROIDISM OF RENAL ORIGIN Status: Chronic - Plan cont current plan of care, continue antibiotics * continue HD as per nephrology * home medication reconciled * continue vancomycin and zosyn * repeat labs tomorrow * follow culture * medication reviewed as below * symptomatic treatment. Review of Systems - Review of Systems Constitutional: weakness. negative: fever, chills, sweats, malaise, other Eyes: negative: Pain, Vision Change, Conjunctivae Inflammation, Eyelid Inflammation, Redness, Other ENT: negative: Ear Pain, Ear Discharge, Nose Pain, Nose Discharge, Nose Congestion, Mouth Pain, Mouth Swelling, Throat Pain, Throat Swelling, Other Respiratory: Cough, Shortness of Breath. negative: Dry, Hemoptysis, SOB with Excertion, Pleuritic Pain, Sputum, Wheezing Cardiovascular: negative: chest pain, palpitations, orthopnea, paroxysmal nocturnal dyspnea, edema, light headedness, other Gastrointestinal: negative: Nausea, Vomiting, Abdominal Pain, Diarrhea, Constipation, Melena, Hematochezia, Other Genitourinary: negative: Dysuria, Frequency, Incontinence, Hematuria, Retention , Other Musculoskeletal: negative: Neck Pain, Shoulder Pain, Arm Pain, Back Pain, Hand Pain, Leg Pain, Foot Pain, Other Skin: negative: Rash, Lesions, Ryley, Bruising, Other Neurological: negative: Weakness, Numbness, Incoordination, Change in Speech, Confusion, Seizures, Other - Medications/Allergies Allergies/Adverse Reactions: Allergies Allergy/AdvReac Type Severity Reaction Status Date / Time atorvastatin calcium Allergy Verified 06/19/17 21:31 [From Lipitor] cefuroxime axetil Allergy Verified 06/19/17 21:31 [From Ceftin] meperidine HCl [From Demerol] Allergy Verified 06/19/17 21:31 nitrofurantoin Allergy Verified 06/19/17 21:31 [From Macrodantin] Medications: Current Medications Acetaminophen (Tylenol) 1,000 mg PO Q6H PRN PRN Reason: Headache/Fever or Mild Pain Last Admin: 06/20/17 22:53 Dose: 1,000 mg Acetaminophen (Tylenol) 650 mg PO Q4H PRN PRN Reason: Headache/Fever or Mild Pain Albuterol/Ipratropium (Duoneb) 3 ml NEB [id number] Last Admin: 06/21/17 11:04 Dose: 3 ml Epoetin Billy (Procrit) 10,000 units SC Q7D [facility] Famotidine (Pepcid) 20 mg PO DAILY [facility] Last Admin: 06/20/17 10:15 Dose: 20 mg Piperacillin Sod/Tazobactam (Sod 2.25 gm/ Sodium Chloride) 100 mls @ 200 mls/ hr IVPB Q8HR [facility] Last Admin: 06/21/17 06:13 Dose: 100 mls Vancomycin HCl 1 gm/ Device 200 mls @ 200 mls/hr IVPB [facility] Vancomycin HCl 750 mg/ Sodium (Chloride) 250 mls @ 250 mls/hr IVPB [facility] Vancomycin HCl 500 mg/ Sodium (Chloride) 100 mls @ 100 mls/hr IVPB [facility] Vancomycin HCl 250 mg/ Sodium (Chloride) 100 mls @ 100 mls/hr IVPB [facility] Last Admin: 06/21/17 09:06 Dose: 100 mls Midodrine (Proamatine) 10 mg PO MWF [facility] Last Admin: 06/20/17 10:15 Dose: 10 mg Miscellaneous Medication (Pharmacy To Dose) 1 each IVPB PRN PRN PRN Reason: SEPSIS Hold Vancomycin For (Level >20) 0 each FS .AT DIALYSIS [facility] Ondansetron HCl (Zofran Odt) 4 mg PO Q6H PRN PRN Reason: Nausea/Vomiting Ondansetron HCl (Zofran) 4 mg IVP Q6H PRN PRN Reason: Nausea/Vomiting Saccharomyces Boulardii (Florastor) 250 mg PO DAILY [facility] Last Admin: 06/20/17 10:16 Dose: 250 mg Sodium Chloride (Flush - Normal Saline) 10 ml IVF Q12HR [facility] Last Admin: 06/20/17 21:08 Dose: 10 ml Sodium Chloride (Flush - Normal Saline) 10 ml IVF PRN PRN PRN Reason: Saline Flush Last Admin: 06/21/17 06:14 Dose: 10 ml Temazepam (Restoril) 15 mg PO HS PRN PRN Reason: Insomnia Last Admin: 06/20/17 22:53 Dose: 15 mg Tramadol HCl (Ultram) 50 mg PO Q6H PRN PRN Reason: Moderate Pain (4-6) Last Admin: 06/21/17 06:22 Dose: 50 mg
[2017-06-21] MEDS: Famotidine 20 MG TAB PO SCH (11:30)
[2017-06-21] MEDS: Epoetin (ESRD) 10,000 UNITS/ML VIAL SC SCH (13:18)
--- NOTE | 2017-06-21 13:48 | PRG ---
DATE OF SERVICE: 06/21/2017 SERVICE: Renal Medicine. SUBJECTIVE: Ms. Rodriguez is a 66-year-old white female with ESRD and admitted for congestive heart failure. She underwent hemodialysis again today for fluid removal. We attempt to max out fluid rem oval, but she did not tolerate this. Blood pressure was on the low side. However, we were able to r emove about 1.6 liters of fluid. Her breathing is improved. No complaints of chest pain. OBJECTIVE: VITAL SIGNS: Blood pressure is 111/54, heart rate 76, respiratory rate 16, and O2 sat 97%. GENERAL: Awake, alert, comfortable, not in distress. SKIN: Adequate turgor. HEENT: She has slightly pale conjunctivae, anicteric sclerae. NECK: No neck mass, no carotid bruits, no JVD. CHEST: No deformities. LUNGS: Clear breath sounds. HEART: Normal sinus rhythm. No murmur, no gallops, no rubs. ABDOMEN: Globular, soft, nontender, no masses. EXTREMITIES: No edema, no deformities. MEDICATIONS: 06/21/2017 was reviewed. LABORATORY DATA: 06/21/2017, white count 12.2, hemoglobin 8. Sodium 138, potassium 3.7, chloride 99 , carbon dioxide 29, BUN 18, creatinine 2.87, calcium 8.5, magnesium 1.8. Cortisol 18.2. ASSESSMENT AND PLAN: 1. Chronic hypertension - currently on midodrine on dialysis days. 2. End-stage renal disease, stable. Extra hemodialysis today due to the congestive heart failure. Tolerated . We are successful in removing about 1.6 liters. 3. Anemia, p.r.n. blood transfusion. Initiate Epogen 10,000 units subcu every week. Overall, prognosis remains guarded.
[2017-06-21] MEDS ORDERED: Calcium Acetate 667 MG CAP PO SCH (15:00)
--- NOTE | 2017-06-21 16:54 | RAD ---
TWO VIEWS CHEST 06/21/17 PROVIDED CLINICAL HISTORY: Hypoxia. FINDINGS: Comparison is made with study dated 06/19/17. The cardiac and mediastinal silhouette are unchanged in appearance. Left basilar pleural and parenchy mal opacity is redemonstrated. Prominence of the pulmonary vasculature and pulmonary interstitium. Me chintan sternotomy changes. IMPRESSION: 1. Left basilar pleural and/or parenchymal opacity appear similar to the prior study and may ref lect pleural fluid with adjacent atelectasis or infiltrate. 2. Pulmonary vascular congestion. POS: DANTE
[2017-06-21] MEDS: Calcium Acetate 667 MG CAP PO SCH (17:51)
[2017-06-21] MEDS: Temazepam 15 MG CAP PO PRN (20:48)
[2017-06-21] MEDS: Pravastatin Sodium 20 MG TAB PO SCH (20:48)
[2017-06-22 05:27] LABS: #Basophils 0.1 thou/uL (0.0-0.2); #Eosinphils 0.6 thou/uL (0.0-0.7); #Lymphocytes 1.8 thou/uL (1.20-3.40); #Monocytes 0.8 thou/uL (0.11-0.59); #Neutrophils 6.3 thou/uL (1.40-6.50); %Basophils 0.7 % (0.0-1.0); %Eosinophils 5.8 % (0.0-10.0); %Lymphocytes 18.7 % (21.0-51.0); %Monocytes 8.4 % (0.0-10.0); %Neutrophils 66.4 % (42.0-75.0); Hemoglobin 8.1 g/dL (12.0-16.0); Mean Corpuscular HGB CONC 31.9 g/dL (32.0-36.0); Mean Corpuscular Volume 90.9 fl (81.0-99.0); Mean Platelet Volume 7.8 fL (7.4-10.4); Platelet Count 402 thou/uL (130-400); RBC Distribution Width 15.5 % (11.5-14.5); White Blood Cell (WBC) Count 9.5 thou/uL (4.8-10.8)
[2017-06-22] MEDS ORDERED: Nystatin Powder 15 GM BOT TOP PRN (05:32)
--- NOTE | 2017-06-22 05:34 | PDOC.PN ---
- Subjective Encounter Start Date: 06/22/17 Encounter Start Time: 10:00 Patient seen and examined. No new complaints. No overnight events - Objective Resuscitation Status: Resuscitation Status FULL:Full Resuscitation MAR Reviewed: Yes Vital Signs & Weight: Vital Signs (12 hours) Temp Pulse Resp BP Pulse Ox 06/22/17 03:46 97.7 F 77 18 102/55 L 92 L 06/21/17 23:57 98.5 F 78 18 101/59 L 93 L 06/21/17 21:00 97.6 F 89 18 121/88 92 L 06/21/17 20:00 97.8 F 92 16 92 L Weight Weight 153 lb 0.013 oz I&O: 06/20/17 06/21/17 06/22/17 06:59 06:59 06:59 Intake Total 810 1050 346 Output Total 50 0 1600 Balance 760 1050 -1254 Result Diagrams: 06/22/17 04:49 06/22/17 04:49 Phys Exam - Physical Examination Constitutional: NAD HEENT: PERRLA, moist MMs, sclera anicteric Neck: no nodes, no JVD, supple, full ROM Respiratory: no wheezing, no rales, no rhonchi Cardiovascular: RRR, no significant murmur, no rub Gastrointestinal: soft, non-tender, no distention, positive bowel sounds Musculoskeletal: no edema, pulses present Neurological: non-focal, normal sensation, moves all 4 limbs Lymphatic: no nodes Psychiatric: normal affect, A&O x 3 Skin: no rash, normal turgor Dx/Plan (1) Sepsis Code(s): A41.9 - SEPSIS, UNSPECIFIED ORGANISM Status: Acute (2) Left lower lobe pneumonia Code(s): J18.1 - LOBAR PNEUMONIA, UNSPECIFIED ORGANISM Status: Acute (3) Acute on chronic diastolic (congestive) heart failure Code(s): I50.33 - ACUTE ON CHRONIC DIASTOLIC (CONGESTIVE) HEART FAILURE Status : Acute (4) Demand ischemia Code(s): I24.8 - OTHER FORMS OF ACUTE ISCHEMIC HEART DISEASE Status: Acute (5) Hyponatremia Code(s): E87.1 - HYPO-OSMOLALITY AND HYPONATREMIA Status: Acute (6) Anemia in chronic kidney disease Code(s): N18.9 - CHRONIC KIDNEY DISEASE, UNSPECIFIED; D63.1 - ANEMIA IN CHRONIC KIDNEY DISEASE Status: Chronic Qualifiers: Chronic kidney disease stage: on chronic dialysis Qualified Code(s): N18.6 - End stage renal disease; D63.1 - Anemia in chronic kidney disease; D63.1 - Anemia in chronic kidney disease; Z99.2 - Dependence on renal dialysis; Z99.2 - Dependence on renal dialysis; Z99.2 - Dependence on renal dialysis; Z99.2 - Dependence on renal dialysis Comment: (7) Anxiety and depression Code(s): F41.9 - ANXIETY DISORDER, UNSPECIFIED; F32.9 - MAJOR DEPRESSIVE DISORDER, SINGLE EPISODE, UNSPECIFIED Status: Chronic Comment: (8) CAD (coronary artery disease) Code(s): I25.10 - ATHSCL HEART DISEASE OF [place] CORONARY ARTERY W/O ANG PCTRS Status: Chronic (9) ESRD (end stage renal disease) on dialysis Code(s): N18.6 - END STAGE RENAL DISEASE; Z99.2 - DEPENDENCE ON RENAL DIALYSIS Status: Chronic Comment: (10) Hypertension Code(s): I10 - ESSENTIAL (PRIMARY) HYPERTENSION Status: Chronic Qualifiers: Hypertension type: essential hypertension Qualified Code(s): I10 - Essential (primary) hypertension (11) Macrocytosis Code(s): D75.89 - OTHER SPECIFIED DISEASES OF BLOOD AND BLOOD-FORMING ORGANS Status: Chronic (12) Orthostatic hypotension Code(s): I95.1 - ORTHOSTATIC HYPOTENSION Status: Chronic (13) Secondary hyperparathyroidism of renal origin Code(s): N25.81 - SECONDARY HYPERPARATHYROIDISM OF RENAL ORIGIN Status: Chronic - Plan cont current plan of care, continue antibiotics * continue vancomycin and zosyn * HD as per nephrology * expecting discharge tomorrow * medication reviewed as below * symptomatic treatment * follow culture. Review of Systems - Review of Systems Eyes: negative: Pain, Vision Change, Conjunctivae Inflammation, Eyelid Inflammation, Redness, Other ENT: negative: Ear Pain, Ear Discharge, Nose Pain, Nose Discharge, Nose Congestion, Mouth Pain, Mouth Swelling, Throat Pain, Throat Swelling, Other Respiratory: negative: Cough, Dry, Shortness of Breath, Hemoptysis, SOB with Excertion, Pleuritic Pain, Sputum, Wheezing Cardiovascular: negative: chest pain, palpitations, orthopnea, paroxysmal nocturnal dyspnea, edema, light headedness, other Gastrointestinal: negative: Nausea, Vomiting, Abdominal Pain, Diarrhea, Constipation, Melena, Hematochezia, Other Genitourinary: negative: Dysuria, Frequency, Incontinence, Hematuria, Retention , Other Musculoskeletal: negative: Neck Pain, Shoulder Pain, Arm Pain, Back Pain, Hand Pain, Leg Pain, Foot Pain, Other - Medications/Allergies Allergies/Adverse Reactions: Allergies Allergy/AdvReac Type Severity Reaction Status Date / Time atorvastatin calcium Allergy Verified 06/19/17 21:31 [From Lipitor] cefuroxime axetil Allergy Verified 06/19/17 21:31 [From Ceftin] meperidine HCl [From Demerol] Allergy Verified 06/19/17 21:31 nitrofurantoin Allergy Verified 06/19/17 21:31 [From Macrodantin] Medications: Current Medications Acetaminophen (Tylenol) 650 mg PO Q4H PRN PRN Reason: Headache/Fever or Mild Pain Al Hydroxide/Mg Hydroxide (Maalox) 15 ml PO Q4H PRN PRN Reason: Heartburn or Indigestion Albuterol/Ipratropium (Duoneb) 3 ml NEB [id number] Last Admin: 06/21/17 19:21 Dose: Not Given Artificial Tears (Tears Naturale) 0 drop EA EYE PRN PRN PRN Reason: Dry Eyes Aspirin (Ecotrin) 81 mg PO DAILY [facility] Calcium Acetate (Phoslo) [address] TID-[facility] Last Admin: 06/21/17 17:51 Dose: 667 mg Carvedilol (Coreg) 12.5 mg PO MWF@0900 [facility] Carvedilol (Coreg) 12.5 mg PO MWF@2100 [facility] Cinacalcet (Sensipar) 30 mg PO DAILY [facility] Docusate Sodium (Colace) 100 mg PO DAILY [facility] Epoetin Billy (Procrit) 10,000 units SC Q7D [facility] Last Admin: 06/21/17 13:18 Dose: 10,000 units Escitalopram Oxalate (Lexapro) 20 mg PO DAILY [facility] Famotidine (Pepcid) 20 mg PO DAILY [facility] Last Admin: 06/21/17 11:30 Dose: 20 mg Guaifenesin (Robitussin Sf) 200 mg PO Q4H PRN PRN Reason: Cough Hydralazine HCl (Apresoline) 10 mg SLOW IVP Q4H PRN PRN Reason: Systolic BP > 180 Piperacillin Sod/Tazobactam (Sod 2.25 gm/ Sodium Chloride) 100 mls @ 200 mls/ hr IVPB Q8HR [facility] Last Admin: 06/21/17 20:48 Dose: 100 mls Vancomycin HCl 1 gm/ Device 200 mls @ 200 mls/hr IVPB [facility] Vancomycin HCl 750 mg/ Sodium (Chloride) 250 mls @ 250 mls/hr IVPB [facility] Vancomycin HCl 500 mg/ Sodium (Chloride) 100 mls @ 100 mls/hr IVPB [facility] Vancomycin HCl 250 mg/ Sodium (Chloride) 100 mls @ 100 mls/hr IVPB [facility] Last Admin: 06/21/17 09:06 Dose: 100 mls Loperamide HCl (Imodium) 2 mg PO PRN PRN PRN Reason: Diarrhea/Loose Stools Loratadine (Claritin) 10 mg PO DAILYPRN PRN PRN Reason: Sinus Symptoms Magnesium Hydroxide (Milk Of Magnesium) 30 ml PO DAILYPRN PRN PRN Reason: Constipation Midodrine (Proamatine) 10 mg PO MWF@0600 [facility] Mineral Oil/White Petrolatum (Eucerin Cream) 0 gm TOP BIDPRN PRN PRN Reason: Dry Skin Miscellaneous Medication (Pharmacy To Dose) 1 each IVPB PRN PRN PRN Reason: SEPSIS Hold Vancomycin For (Level >20) 0 each FS .AT DIALYSIS [facility] Nystatin (Mycostatin Powder) 1 gm TOP BID PRN PRN Reason: Topical Irritations Ondansetron HCl (Zofran Odt) 4 mg PO Q6H PRN PRN Reason: Nausea/Vomiting Ondansetron HCl (Zofran) 4 mg IVP Q6H PRN PRN Reason: Nausea/Vomiting Phenol (Chloraseptic Duck 180 Ml Bot) 0 ml PO PRN PRN PRN Reason: Sore Throat Pravastatin Sodium (Pravachol) 10 mg PO [facility] Last Admin: 06/21/17 20:48 Dose: 10 mg Saccharomyces Boulardii (Florastor) 250 mg PO DAILY [facility] Last Admin: 06/21/17 11:28 Dose: 250 mg Senna (Senokot) 2 tab PO HSPRN PRN PRN Reason: Constipation Sodium Chloride (Flush - Normal Saline) 10 ml IVF Q12HR [facility] Last Admin: 06/21/17 20:50 Dose: 10 ml Sodium Chloride (Flush - Normal Saline) 10 ml IVF PRN PRN PRN Reason: Saline Flush Last Admin: 06/21/17 14:15 Dose: 10 ml Sodium Chloride (Paden Nasal Duck 0.65%) 0 ml EA NARE QIDPRN PRN PRN Reason: Nasal Congestion Temazepam (Restoril) 15 mg PO HSPRN PRN PRN Reason: Insomnia Last Admin: 06/21/17 20:48 Dose: 15 mg Tramadol HCl (Ultram) 50 mg PO Q6H PRN PRN Reason: Moderate Pain (4-6) Last Admin: 06/21/17 20:47 Dose: 50 mg Vitamin B Complex/Vit C/Folic Acid (Nephro-Mimi Tablet) 1 tab PO QAM [facility]
[2017-06-22 05:43] LABS: Albumin 2.5 g/dL (3.4-4.8); Anion Gap 13 mmol/L (10-20); BUN (Urea Nitrogen) 16 mg/dL (9.8-20.1); BUN/Creatinine Ratio 5.71; Calc. Creatinine Clearance 21 mL/min (70-130); Calcium 8.6 mg/dL (7.8-10.44); Carbon Dioxide 27 mmol/L (23-31); Chloride 99 mmol/L (98-107); Estimated GFR-MDRD 17; Glucose 82 mg/dL (80-115); Potassium 3.7 mmol/L (3.5-5.1); Sodium 135 mmol/L (136-145)
[2017-06-22] MEDS: Piperacillin/Tazobactam 2.25 GM in Sodium Chloride 0.9% 100 ML IVPB SCH ×3 (05:49→20:41)
[2017-06-22] MEDS: Docusate 100 MG CAP PO SCH (08:06)
[2017-06-22] MEDS: Saccharomyces boulardii 250 MG CAP PO SCH (08:06)
[2017-06-22] MEDS: Folic Acid/Vit B Comp W-C PO SCH (08:06)
[2017-06-22] MEDS: Aspirin 81 mg Enteric Coated Tablet PO SCH (08:06)
[2017-06-22] MEDS: Famotidine 20 MG TAB PO SCH (08:06)
[2017-06-22] MEDS: Escitalopram Oxalate 20 mg Tablet PO SCH (08:06)
[2017-06-22] MEDS: Calcium Acetate 667 MG CAP PO SCH ×3 (08:07→17:37)
[2017-06-22] MEDS: Cinacalcet HCl 30 MG TAB PO SCH (08:07)
[2017-06-22] MEDS: Acetaminophen 325 MG TAB PO PRN (12:15)
[2017-06-22] MEDS: traMADol HCl 50 MG TAB PO PRN ×2 (12:15→20:41)
[2017-06-22] MEDS: Pravastatin Sodium 20 MG TAB PO SCH (20:41)
[2017-06-22] MEDS: Temazepam 15 MG CAP PO PRN (20:41)
[2017-06-23] MEDS: Acetaminophen 325 MG TAB PO PRN ×3 (00:36→15:02)
[2017-06-23] MEDS: traMADol HCl 50 MG TAB PO PRN ×3 (02:12→20:38)
[2017-06-23] MEDS: Piperacillin/Tazobactam 2.25 GM in Sodium Chloride 0.9% 100 ML IVPB SCH ×3 (06:10→20:39)
[2017-06-23] MEDS: Midodrine HCl 5 MG TAB PO SCH (06:11)
[2017-06-23] MEDS: Aspirin 81 mg Enteric Coated Tablet PO SCH (07:43)
[2017-06-23] MEDS: Calcium Acetate 667 MG CAP PO SCH ×3 (07:43→17:35)
[2017-06-23] MEDS: Saccharomyces boulardii 250 MG CAP PO SCH (07:44)
[2017-06-23] MEDS: Famotidine 20 MG TAB PO SCH (07:44)
[2017-06-23] MEDS: Cinacalcet HCl 30 MG TAB PO SCH (07:44)
[2017-06-23] MEDS: Docusate 100 MG CAP PO SCH (07:44)
[2017-06-23] MEDS: Folic Acid/Vit B Comp W-C PO SCH (07:44)
[2017-06-23] MEDS: Escitalopram Oxalate 20 mg Tablet PO SCH (07:45)
[2017-06-23] MEDS: Carvedilol 25 MG TAB PO SCH ×2 (07:53→20:40)
[2017-06-23 09:52] LABS: Vancomycin, Random 12.6 ug/mL (See Comment)
--- NOTE | 2017-06-23 10:16 | PDOC.PN ---
- Subjective Encounter Start Date: 06/23/17 Encounter Start Time: 09:30 today pt has pus drainage from right UE at AVF site, that site is red, tender and warm - Objective Resuscitation Status: Resuscitation Status FULL:Full Resuscitation MAR Reviewed: Yes Vital Signs & Weight: Vital Signs (12 hours) Temp Pulse Resp BP Pulse Ox 06/23/17 09:51 74 18 94 L 06/23/17 08:00 98.1 F 74 16 111/65 94 L 06/23/17 06:07 82 16 96 06/23/17 01:50 98 06/23/17 00:40 98 F 80 20 144/63 H 96 Weight Weight 157 lb 3.033 oz I&O: 06/22/17 06/23/17 06/24/17 06:59 06:59 06:59 Intake Total 812 1410 Output Total 1600 70 Balance -788 1340 Result Diagrams: 06/22/17 04:49 06/22/17 04:49 Phys Exam - Physical Examination Constitutional: NAD HEENT: PERRLA, moist MMs, sclera anicteric Neck: no JVD, supple Respiratory: no wheezing, no rales, no rhonchi Cardiovascular: RRR, no significant murmur, no rub Gastrointestinal: soft, non-tender, no distention, positive bowel sounds Musculoskeletal: no edema, pulses present right UE AVF red, tender, with pus drainage, Tunneled HD catheter left thig Neurological: non-focal, normal sensation Lymphatic: no nodes Psychiatric: normal affect, A&O x 3 Skin: no rash, normal turgor Dx/Plan (1) Sepsis Code(s): A41.9 - SEPSIS, UNSPECIFIED ORGANISM Status: Acute (2) Left lower lobe pneumonia Code(s): J18.1 - LOBAR PNEUMONIA, UNSPECIFIED ORGANISM Status: Acute (3) Acute on chronic diastolic (congestive) heart failure Code(s): I50.33 - ACUTE ON CHRONIC DIASTOLIC (CONGESTIVE) HEART FAILURE Status : Acute (4) Demand ischemia Code(s): I24.8 - OTHER FORMS OF ACUTE ISCHEMIC HEART DISEASE Status: Acute (5) Hyponatremia Code(s): E87.1 - HYPO-OSMOLALITY AND HYPONATREMIA Status: Acute (6) Anemia in chronic kidney disease Code(s): N18.9 - CHRONIC KIDNEY DISEASE, UNSPECIFIED; D63.1 - ANEMIA IN CHRONIC KIDNEY DISEASE Status: Chronic Qualifiers: Chronic kidney disease stage: on chronic dialysis Qualified Code(s): N18.6 - End stage renal disease; D63.1 - Anemia in chronic kidney disease; D63.1 - Anemia in chronic kidney disease; Z99.2 - Dependence on renal dialysis; Z99.2 - Dependence on renal dialysis; Z99.2 - Dependence on renal dialysis; Z99.2 - Dependence on renal dialysis Comment: (7) Anxiety and depression Code(s): F41.9 - ANXIETY DISORDER, UNSPECIFIED; F32.9 - MAJOR DEPRESSIVE DISORDER, SINGLE EPISODE, UNSPECIFIED Status: Chronic Comment: (8) CAD (coronary artery disease) Code(s): I25.10 - ATHSCL HEART DISEASE OF [place] CORONARY ARTERY W/O ANG PCTRS Status: Chronic (9) ESRD (end stage renal disease) on dialysis Code(s): N18.6 - END STAGE RENAL DISEASE; Z99.2 - DEPENDENCE ON RENAL DIALYSIS Status: Chronic Comment: (10) Hypertension Code(s): I10 - ESSENTIAL (PRIMARY) HYPERTENSION Status: Chronic Qualifiers: Hypertension type: essential hypertension Qualified Code(s): I10 - Essential (primary) hypertension (11) Macrocytosis Code(s): D75.89 - OTHER SPECIFIED DISEASES OF BLOOD AND BLOOD-FORMING ORGANS Status: Chronic (12) Orthostatic hypotension Code(s): I95.1 - ORTHOSTATIC HYPOTENSION Status: Chronic (13) Secondary hyperparathyroidism of renal origin Code(s): N25.81 - SECONDARY HYPERPARATHYROIDISM OF RENAL ORIGIN Status: Chronic (14) AV fistula infection Code(s): T82.7XXA - INFECT/INFLM REACT D/T OTH CARDI/VASC DEV/IMPLNT/GRFT, INIT Status: Acute Comment: vs right UE cellulitis vs septic thrombophlebitis - Plan cont current plan of care, continue antibiotics * will get US soft tissue right UE to rule out any collection * will consult Dr Morris to look at this * pus sent for culture * continue vancomycin and zosyn * medication reviewed as below * symptomatic treatment * not ready for discharge yet * she will go [facility] to [facility]. Review of Systems - Review of Systems Constitutional: negative: fever, chills, sweats, weakness, malaise, other Eyes: negative: Pain, Vision Change, Conjunctivae Inflammation, Eyelid Inflammation, Redness, Other ENT: negative: Ear Pain, Ear Discharge, Nose Pain, Nose Discharge, Nose Congestion, Mouth Pain, Mouth Swelling, Throat Pain, Throat Swelling, Other Respiratory: negative: Cough, Dry, Shortness of Breath, Hemoptysis, SOB with Excertion, Pleuritic Pain, Sputum, Wheezing Cardiovascular: negative: chest pain, palpitations, orthopnea, paroxysmal nocturnal dyspnea, edema, light headedness, other Gastrointestinal: negative: Nausea, Vomiting, Abdominal Pain, Diarrhea, Constipation, Melena, Hematochezia, Other Genitourinary: negative: Dysuria, Frequency, Incontinence, Hematuria, Retention , Other Musculoskeletal: Arm Pain. negative: Neck Pain, Shoulder Pain, Back Pain, Hand Pain, Leg Pain, Foot Pain, Other Skin: negative: Rash, Lesions, Ryley, Bruising, Other - Medications/Allergies Allergies/Adverse Reactions: Allergies Allergy/AdvReac Type Severity Reaction Status Date / Time atorvastatin calcium Allergy Verified 06/19/17 21:31 [From Lipitor] cefuroxime axetil Allergy Verified 06/19/17 21:31 [From Ceftin] meperidine HCl [From Demerol] Allergy Verified 06/19/17 21:31 nitrofurantoin Allergy Verified 06/19/17 21:31 [From Macrodantin] Medications: Current Medications Acetaminophen (Tylenol) 650 mg PO Q4H PRN PRN Reason: Headache/Fever or Mild Pain Last Admin: 06/23/17 06:11 Dose: 650 mg Al Hydroxide/Mg Hydroxide (Maalox) 15 ml PO Q4H PRN PRN Reason: Heartburn or Indigestion Albuterol/Ipratropium (Duoneb) 3 ml NEB [id number] [facility] Last Admin: 06/23/17 09:51 Dose: 3 ml Artificial Tears (Tears Naturale) 0 drop EA EYE PRN PRN PRN Reason: Dry Eyes Aspirin (Ecotrin) 81 mg PO DAILY [facility] Last Admin: 06/23/17 07:43 Dose: 81 mg Calcium Acetate (Phoslo) 667 mg PO TID-[facility] Last Admin: 06/23/17 07:43 Dose: 667 mg Carvedilol (Coreg) 12.5 mg PO MWF@0900 [facility] Last Admin: 06/23/17 07:53 Dose: 12.5 mg Carvedilol (Coreg) 12.5 mg PO MWF@2100 [facility] Cinacalcet (Sensipar) 30 mg PO DAILY [facility] Last Admin: 06/23/17 07:44 Dose: 30 mg Docusate Sodium (Colace) 100 mg PO DAILY [facility] Last Admin: 06/23/17 07:44 Dose: 100 mg Epoetin Billy (Procrit) 10,000 units SC Q7D [facility] Last Admin: 06/21/17 13:18 Dose: 10,000 units Escitalopram Oxalate (Lexapro) 20 mg PO DAILY [facility] Last Admin: 06/23/17 07:45 Dose: 20 mg Famotidine (Pepcid) 20 mg PO DAILY [facility] Last Admin: 06/23/17 07:44 Dose: 20 mg Guaifenesin (Robitussin Sf) 200 mg PO Q4H PRN PRN Reason: Cough Hydralazine HCl (Apresoline) 10 mg SLOW IVP Q4H PRN PRN Reason: Systolic BP > 180 Piperacillin Sod/Tazobactam (Sod 2.25 gm/ Sodium Chloride) 100 mls @ 200 mls/ hr IVPB Q8HR [facility] Last Admin: 06/23/17 06:10 Dose: 100 mls Vancomycin HCl 1 gm/ Device 200 mls @ 200 mls/hr IVPB [facility] Vancomycin HCl 750 mg/ Sodium (Chloride) 250 mls @ 250 mls/hr IVPB [facility] Vancomycin HCl 500 mg/ Sodium (Chloride) 100 mls @ 100 mls/hr [facility] Vancomycin HCl 250 mg/ Sodium (Chloride) 100 mls @ 100 mls/hr IVPB [facility] Last Admin: 06/21/17 09:06 Dose: 100 mls Loperamide HCl (Imodium) 2 mg PO PRN PRN PRN Reason: Diarrhea/Loose Stools Loratadine (Claritin) 10 mg PO DAILYPRN PRN PRN Reason: Sinus Symptoms Magnesium Hydroxide (Milk Of Magnesium) 30 ml PO DAILYPRN PRN PRN Reason: Constipation Midodrine (Proamatine) 10 mg PO MWF@0600 [facility] Last Admin: 06/23/17 06:11 Dose: 10 mg Mineral Oil/White Petrolatum (Eucerin Cream) 0 gm TOP BIDPRN PRN PRN Reason: Dry Skin Miscellaneous Medication (Pharmacy To Dose) 1 each IVPB PRN PRN PRN Reason: SEPSIS Hold Vancomycin For (Level >20) 0 each FS .AT DIALYSIS [facility] Nystatin (Mycostatin Powder) 0 gm TOP BID PRN PRN Reason: Topical Irritations Ondansetron HCl (Zofran Odt) 4 mg PO Q6H PRN PRN Reason: Nausea/Vomiting Ondansetron HCl (Zofran) 4 mg IVP Q6H PRN PRN Reason: Nausea/Vomiting Phenol (Chloraseptic [place] 180 Ml Bot) 0 ml PO PRN PRN PRN Reason: Sore Throat Pravastatin Sodium (Pravachol) 10 mg PO HS [facility] Last Admin: 06/22/17 20:41 Dose: 10 mg Saccharomyces Boulardii (Florastor) 250 mg PO DAILY [facility] Last Admin: 06/23/17 07:44 Dose: 250 mg Senna (Senokot) 2 tab PO HSPRN PRN PRN Reason: Constipation Sodium Chloride (Flush - Normal Saline) 10 ml IVF Q12HR [facility] Last Admin: 06/23/17 07:45 Dose: 10 ml Sodium Chloride (Flush - Normal Saline) 10 ml IVF PRN PRN PRN Reason: Saline Flush Last Admin: 06/23/17 06:11 Dose: 10 ml Sodium Chloride (George Nasal [place] 0.65%) 0 ml EA NARE QIDPRN PRN PRN Reason: Nasal Congestion Temazepam (Restoril) 15 mg PO HSPRN PRN PRN Reason: Insomnia Last Admin: 06/22/17 20:41 Dose: 15 mg Tramadol HCl (Ultram) 50 mg PO Q6H PRN PRN Reason: Moderate Pain (4-6) Last Admin: 06/23/17 02:12 Dose: 50 mg Vitamin B Complex/Vit C/Folic Acid (Nephro-Mimi Tablet) 1 tab PO QAM [facility] Last Admin: 06/23/17 07:44 Dose: 1 tab
[2017-06-23] MEDS ORDERED: Heparin 10,000 UNITS/ 10 ML VIAL ONE (11:11)
[2017-06-23 12:44] LABS: #Basophils 0.1 thou/uL (0.0-0.2); #Eosinphils 0.6 thou/uL (0.0-0.7); #Lymphocytes 1.5 thou/uL (1.20-3.40); #Monocytes 0.5 thou/uL (0.11-0.59); #Neutrophils 6.5 thou/uL (1.40-6.50); %Basophils 0.9 % (0.0-1.0); %Eosinophils 6.4 % (0.0-10.0); %Lymphocytes 16.3 % (21.0-51.0); %Monocytes 5.4 % (0.0-10.0); %Neutrophils 71.1 % (42.0-75.0); Hemoglobin 8.4 g/dL (12.0-16.0); Mean Corpuscular HGB CONC 29.4 g/dL (32.0-36.0); Mean Corpuscular Hemoglobin 26.8 pg (27.0-31.0); Mean Corpuscular Volume 91.2 fl (81.0-99.0); Mean Platelet Volume 7.6 fL (7.4-10.4); Platelet Count 413 thou/uL (130-400); RBC Distribution Width 15.7 % (11.5-14.5); Red Blood Cell (RBC) Count 3.15 mill/uL (4.20-5.40); White Blood Cell (WBC) Count 9.2 thou/uL (4.8-10.8)
[2017-06-23 13:07] LABS: Anion Gap 10 mmol/L (10-20); BUN (Urea Nitrogen) 18 mg/dL (9.8-20.1); Calc. Creatinine Clearance 20 mL/min (70-130); Calcium 8.4 mg/dL (7.8-10.44); Carbon Dioxide 30 mmol/L (23-31); Chloride 98 mmol/L (98-107); Estimated GFR-MDRD 15; Glucose 103 mg/dL (80-115); Potassium 3.3 mmol/L (3.5-5.1); Sodium 135 mmol/L (136-145)
--- NOTE | 2017-06-23 13:58 | ULT ---
ULTRASOUND SOFT TISSUES RIGHT UPPER EXTREMITY: Date: 06/23/17 HISTORY: 66-year-old female hemodialysis patient status post surgical placement of dialysis AV fistula on 05/26 09/10. Soft tissue swelling and drainage at surgical site. FINDINGS: There is a 5 mm caliber tubular structure that has pulsatile, arterialized blood flow, which is eithe r a [place] vein AV fistula or a synthetic AV fistula graft. Because of the thick [place], graft is slig htly favored. There is severe edema in the soft tissues in the region of the graft, at the antecubita l fossa. There is a tiny, 0.4 x 0.3 cm, fluid collection adjacent to this fistula. IMPRESSION: 1. Severe soft tissue edema of the right upper extremity, at the antecubital fossa in the region of the arteriovenous fistula or AVF graft. 2. Tiny, 0.5 cm, nonspecific focal fluid collection adjacent to the graft. POS: JOY
[2017-06-23] MEDS: Vancomycin HCl 500 MG in Sodium Chloride 0.9% 100 ML IVPB SCH (17:45)
[2017-06-23] MEDS: Pravastatin Sodium 20 MG TAB PO SCH (20:36)
[2017-06-23] MEDS: Temazepam 15 MG CAP PO PRN (20:38)
--- NOTE | 2017-06-23 21:54 | PRG ---
DATE OF SERVICE: 06/23/2017 RENAL MEDICINE HISTORY OF PRESENT ILLNESS: Ms. Rodriguez is a 66-year-old white female with ESRD, currently [facility]. She was initially admitted for some shortness of breath. It was noted about 1 day from today she had some discharge - pus from the site of her AV fistula. This was cultured and currently on empiric IV antibiotics. Surgical consult has been done. She underwent hemodialysis to day without any difficulty. Fluid removal was tolerated. No other complaints. PHYSICAL EXAMINATION: VITAL SIGNS: Blood pressure is 111/65, heart rate 74, respiratory rate 16, temperature 98.1, and pul se ox 94%. GENERAL: Awake, alert, comfortable, not in distress. SKIN: Adequate turgor. HEENT: She has slightly pale conjunctivae, anicteric sclerae. NECK: No neck mass, no carotid bruits, and no JVD. CHEST: No deformities. LUNGS: Clear breath sounds, no wheezing, and no crackles. HEART: Normal sinus rhythm. No murmur, no gallops, and no rubs. ABDOMEN: Globular, soft, and nontender. No masses. EXTREMITIES: No edema. No deformities. Right upper extremity - spontaneous discharge - pus-like ma terial around the AV fistula site. MEDICATIONS: Medications of 06/23/2017 was reviewed. LABORATORY DATA: Laboratories of 06/23/2017; white count 9.2, hemoglobin 8.4, sodium 135, potassium 3.3, chloride 98, carbon dioxide 30, BUN 18, creatinine 3.05, and calcium is 8.4. Vancomycin level o n 06/23/2017 was 12.6. ASSESSMENT AND PLAN: 1. Cellulitis/pus-like discharge on the right upper extremity, below the arteriovenous fistula/graft site - empiric Zosyn and vancomycin. Awaiting surgical input. 2. End-stage renal disease, stable. Tolerating current hemodialysis regimen. We will continue , Friday, and Friday dialysis. Tolerating said treatment. 3. Anemia, continuing weekly Epogen. P.r.n. blood transfusion. Agree with current management.
--- NOTE | 2017-06-24 01:57 | HP ---
HISTORY OF PRESENT ILLNESS: Clarissa Rodriguez is a 66-year-old female, morbidly obese, end-stage r enal disease and exhausting [place] vein fistula access, status post 03/24/2017, effort to salvage hem orrhaging left arm fistula resulting in a ligation. She underwent a right arm fistula on 04/02/2017 that eventually thrombosed and on 03/30/2017, she had right femoral vein cuffed tunnel dialysis anitra ter. The right internal jugular vein is occluded from previous access in the left IJ was not accessi ble due to recent infection, it may be able to be accessed in the future if necessary. On 05/20/2017 , she underwent exploration of right forearm finding veins to be inadequate underwent tapered dialysi s graft placement. They have been accessed in her right arm dialysis graft. The patient was admitte d for pneumonia, dyspnea. She has past history of mastectomy. She has been started on vancomycin fo r cellulitis in the right arm. She has been noted to be some purulent drainage from the distal upper arm incision just below the antecubital fossa near the arterial graft anastomosis. Inspection at the bedside reveals purulent drainage, I then opened this incision with a Q-tips. The wound seemed to be superficial. PHYSICAL EXAMINATION: VITAL SIGNS: The patient is morbidly obese, height 5 feet 3 inches, weight 157 pounds, and BMI of 27 . GENERAL: A gauze dressing applied with Coban. The right arm graft has a good thrill and bruit. The re is cellulitis. ASSESSMENT AND PLAN: Right upper arm infection with edema. She may be having lymphedema versus cent ral circulation problems. We will order a fistulogram right arm to look at the central circulation. The graft is patent. We will ask dialysis did not access the right arm graft until we resolve the c ellulitis in her arm. We will ask wound care to see her to initiate wound VAC. She dialyzed this mo rning dialysis at [place] at 0900. She is followed by Dr. Rucker. As far as her wound care in e right arm, I would recommend that she have this either twice a week on nondialysis days, possible T and Friday by home health or her care facility. With no access to right arm graft, but inst ead to use her femoral vein cuffed tunnel dialysis catheter for now. I would see her in my office in the next 2 weeks and hopefully this with intravenous antibiotics, vancomycin administered during marlon lysis ever 5-10 days (pending renal function (residual.) Hopefully, we can salvage this graft would continue intravenous antibiotics for 3-4 weeks. Right arm cultures on 06/23/2017 reveal GPC clusters . Vancomycin should suffice. Her arm edema most likely is due to her past mastectomy related to rul e out a central venous stenosis and this arterialized right arm venous system. We will obtain a fist ulogram. She should follow up in my office in approximately 2-3 weeks and hopefully we can begin reu sing the right arm dialysis access in the future once the infection resolves.
[2017-06-24] MEDS: Piperacillin/Tazobactam 2.25 GM in Sodium Chloride 0.9% 100 ML IVPB SCH ×3 (06:11→22:44)
[2017-06-24] MEDS: traMADol HCl 50 MG TAB PO PRN ×3 (06:14→19:09)
[2017-06-24] MEDS: Docusate 100 MG CAP PO SCH (08:34)
[2017-06-24] MEDS: Folic Acid/Vit B Comp W-C PO SCH (08:34)
[2017-06-24] MEDS: Aspirin 81 mg Enteric Coated Tablet PO SCH (08:34)
[2017-06-24] MEDS: Saccharomyces boulardii 250 MG CAP PO SCH (08:34)
[2017-06-24] MEDS: Escitalopram Oxalate 20 mg Tablet PO SCH (08:34)
[2017-06-24] MEDS: Cinacalcet HCl 30 MG TAB PO SCH (08:34)
[2017-06-24] MEDS: Famotidine 20 MG TAB PO SCH (08:34)
[2017-06-24] MEDS: Calcium Acetate 667 MG CAP PO SCH ×3 (08:34→17:19)
[2017-06-24] MEDS: Acetaminophen 325 MG TAB PO PRN (08:39)
--- NOTE | 2017-06-24 12:05 | PDOC.PN ---
- Subjective Encounter Start Date: 06/24/17 Encounter Start Time: 12:03 Patient seen and examined, no new issues or complaints, all questions answered. - Objective Resuscitation Status: Resuscitation Status FULL:Full Resuscitation Vital Signs & Weight: Vital Signs (12 hours) Temp Pulse Resp BP Pulse Ox 06/24/17 09:35 83 18 95 06/24/17 08:00 98.4 F 83 18 92 L 06/24/17 07:55 98.4 F 83 18 138/80 92 L 06/24/17 06:03 79 16 95 06/24/17 03:33 95 Weight Weight 157 lb 3.033 oz I&O: 06/23/17 06/24/17 06/25/17 06:59 06:59 06:59 Intake Total 1410 1020 Output Total 70 4000 Balance 1340 -2980 Result Diagrams: 06/23/17 12:20 06/23/17 12:20 Phys Exam - Physical Examination Constitutional: NAD HEENT: PERRLA, moist MMs, sclera anicteric Neck: no nodes, no JVD, supple Respiratory: no wheezing, no rales, no rhonchi Cardiovascular: RRR, no significant murmur, no rub Gastrointestinal: soft, non-tender, no distention, positive bowel sounds Musculoskeletal: no edema, pulses present AVG Neurological: non-focal, normal sensation, moves all 4 limbs Psychiatric: normal affect, A&O x 3 Skin: no rash, normal turgor Dx/Plan (1) AV fistula infection Code(s): T82.7XXA - INFECT/INFLM REACT D/T OTH CARDI/VASC DEV/IMPLNT/GRFT, INIT Status: Acute Comment: vs right UE cellulitis vs septic thrombophlebitis (2) Acute on chronic diastolic (congestive) heart failure Code(s): I50.33 - ACUTE ON CHRONIC DIASTOLIC (CONGESTIVE) HEART FAILURE Status : Acute (3) Demand ischemia Code(s): I24.8 - OTHER FORMS OF ACUTE ISCHEMIC HEART DISEASE Status: Acute (4) Anxiety and depression Code(s): F41.9 - ANXIETY DISORDER, UNSPECIFIED; F32.9 - MAJOR DEPRESSIVE DISORDER, SINGLE EPISODE, UNSPECIFIED Status: Chronic Comment: (5) CAD (coronary artery disease) Code(s): I25.10 - ATHSCL HEART DISEASE OF [place] CORONARY ARTERY W/O ANG PCTRS Status: Chronic (6) ESRD (end stage renal disease) on dialysis Code(s): N18.6 - END STAGE RENAL DISEASE; Z99.2 - DEPENDENCE ON RENAL DIALYSIS Status: Chronic Comment: - Plan * Moshe Goodwin on culture, C&S pending * cont current abx regimen * wound care * HD per renal * wound vac in place * possible DC in 2-3 days once C&S available * case and plan d/w patient at length, she understands and agrees with this plan
[2017-06-24 14:52] VITALS: BMI 27.8
[2017-06-24] MEDS: Temazepam 15 MG CAP PO PRN (20:04)
[2017-06-24] MEDS: Pravastatin Sodium 20 MG TAB PO SCH (20:04)
[2017-06-25] MEDS ORDERED: Clopidogrel Bisulfate 75 MG TAB ONE (05:06)
[2017-06-25] MEDS: Midodrine HCl 5 MG TAB PO SCH (05:19)
[2017-06-25] MEDS: Piperacillin/Tazobactam 2.25 GM in Sodium Chloride 0.9% 100 ML IVPB SCH ×3 (05:19→21:28)
[2017-06-25 08:00] LABS: #Basophils 0.1 thou/uL (0.0-0.2); #Eosinphils 0.6 thou/uL (0.0-0.7); #Monocytes 0.7 thou/uL (0.11-0.59); #Neutrophils 8.3 thou/uL (1.40-6.50); %Basophils 0.6 % (0.0-1.0); %Eosinophils 5.3 % (0.0-10.0); %Monocytes 5.9 % (0.0-10.0); %Neutrophils 71.3 % (42.0-75.0); Hemoglobin 8.7 g/dL (12.0-16.0); Mean Corpuscular HGB CONC 30.8 g/dL (32.0-36.0); Mean Corpuscular Hemoglobin 27.6 pg (27.0-31.0); Mean Corpuscular Volume 89.6 fl (81.0-99.0); Mean Platelet Volume 7.7 fL (7.4-10.4); Platelet Count 469 thou/uL (130-400); Red Blood Cell (RBC) Count 3.13 mill/uL (4.20-5.40); White Blood Cell (WBC) Count 11.7 thou/uL (4.8-10.8)
[2017-06-25] MEDS: Cinacalcet HCl 30 MG TAB PO SCH ×2 (08:07→13:03)
[2017-06-25] MEDS: Docusate 100 MG CAP PO SCH ×2 (08:07→13:03)
[2017-06-25] MEDS: Aspirin 81 mg Enteric Coated Tablet PO SCH ×2 (08:07→13:03)
[2017-06-25] MEDS: Calcium Acetate 667 MG CAP PO SCH ×3 (08:07→17:15)
[2017-06-25] MEDS: Famotidine 20 MG TAB PO SCH ×2 (08:07→13:02)
[2017-06-25] MEDS: Escitalopram Oxalate 20 mg Tablet PO SCH ×2 (08:07→13:04)
[2017-06-25] MEDS: Carvedilol 25 MG TAB PO SCH ×3 (08:07→20:04)
[2017-06-25] MEDS: Folic Acid/Vit B Comp W-C PO SCH ×2 (08:08→13:05)
[2017-06-25] MEDS: Saccharomyces boulardii 250 MG CAP PO SCH ×2 (08:08→13:06)
[2017-06-25 08:21] LABS: Anion Gap 16 mmol/L (10-20); BUN (Urea Nitrogen) 36 mg/dL (9.8-20.1); Calc. Creatinine Clearance 14 mL/min (70-130); Calcium 8.2 mg/dL (7.8-10.44); Carbon Dioxide 25 mmol/L (23-31); Chloride 99 mmol/L (98-107); Estimated GFR-MDRD 10; Glucose 78 mg/dL (80-115); Potassium 4.9 mmol/L (3.5-5.1); Sodium 135 mmol/L (136-145)
--- NOTE | 2017-06-25 08:36 | PRG ---
DATE OF SERVICE: 06/25/2017 RENAL MEDICINE SUBJECTIVE: Ms. Rodriguez is a 66-year-old white female with known history of ESRD. Currently, she is undergoing dialysis. I am at the bedside supervising her dialysis. She also had a cellulitis in the right upper extremity. She had some discharge around the site of the AV fistula. Surgery has e valuated this patient. Their recommendation is to continue current IV antibiotics. Wound VAC has al so been ordered by Dr. Morris on the right wound area. No complaints of chest pain or shortness of breath. PHYSICAL EXAMINATION: VITAL SIGNS: Blood pressure is noted at 125/67 with heart rate of 85, respiratory rate 16, pulse ox 92%. GENERAL: Awake, alert, comfortable, not in overt distress. SKIN: Adequate turgor. HEENT: She has slightly pale conjunctivae, anicteric sclerae. NECK: No neck mass, no carotid bruits, no JVD. CHEST: No deformities. LUNGS: Clear breath sounds, no wheezing, no crackles. HEART: Normal sinus rhythm. No murmur, no gallops, no rubs. ABDOMEN: Globular, soft, nontender. No masses. EXTREMITIES: Trace edema in the lower extremities. Positive for right upper extremity edema. LABORATORY DATA: Laboratories of 06/25/2017; white count 11.7, hemoglobin 8.7, sodium 135, potassium 3.3, chloride 98, carbon dioxide 30, BUN 18, creatinine 3.05, calcium 8.4, and glucose 103. ASSESSMENT AND PLAN: 1. Mild hypokalemia, adjust potassium bath in the dialysis. 2. End-stage renal disease, stable. Continue current hemodialysis regimen. Fluid removal only as t olerated. 3. Anemia, on weekly Epogen. 4. Right upper extremity cellulitis - on IV antibiotics. Surgery is following.
[2017-06-25 08:40] LABS: Vancomycin, Random 15.9 ug/mL (See Comment)
[2017-06-25] MEDS: Vancomycin HCl 250 MG in Sodium Chloride 0.9% 100 ML IVPB SCH (10:37)
[2017-06-25] MEDS: traMADol HCl 50 MG TAB PO PRN ×2 (13:26→20:01)
--- NOTE | 2017-06-25 14:00 | SPC ---
RIGHT UPPER EXTREMITY FISTULOGRAM: INDICATIONS: Right upper extremity edema. Soft tissue infection and draining wound, anteriorly, just proximal to the elbow, overlying the proximal fistula FINDINGS: There is a fistula graft anastomosed to the brachial artery, just above the elbow. This graft is pat ent and extends to the axillary artery, near its just with the basilic vein, just proximal to the axi lla. This graft is widely patent with no stenosis. The axillary vein, subclavian vein, brachiocepha lic vein, and superior vena cava are all widely patent. No stenosis or filling defect identified. T he arterial anastomosis was refluxed and is patent. IMPRESSION: Patent right upper extremity fistula. PROCEDURE NOTE: Wound VAC and bandage material removed from the anterior arm, just above the elbow, at the site of th e fistula. Ultrasound is used to assess the fistula. The fistula is punctured under ultrasound guid ance and local anesthesia, just above the elbow. A 4 English catheter is placed into the fistula. A fistulogram with a right upper extremity venogram and a superior vena cavogram are obtained by inject ing through this catheter at this location. The detrusor was then compressed, and the arterial anastomosis was refluxed and imaged. The arterial anastomosis appears patent. The patient tolerated the procedure well, and there were no problems or complications. POS: DANTE
[2017-06-25] MEDS: Acetaminophen 325 MG TAB PO PRN (15:23)
[2017-06-25] MEDS: Pravastatin Sodium 20 MG TAB PO SCH (20:02)
[2017-06-25] MEDS: Temazepam 15 MG CAP PO PRN (20:02)
[2017-06-26 04:31] LABS: #Basophils 0.1 thou/uL (0.0-0.2); #Eosinphils 0.6 thou/uL (0.0-0.7); #Lymphocytes 1.8 thou/uL (1.20-3.40); #Monocytes 0.7 thou/uL (0.11-0.59); %Basophils 0.9 % (0.0-1.0); %Eosinophils 5.9 % (0.0-10.0); %Lymphocytes 17.7 % (21.0-51.0); %Monocytes 7.2 % (0.0-10.0); %Neutrophils 68.3 % (42.0-75.0); Hemoglobin 8.9 g/dL (12.0-16.0); Mean Corpuscular HGB CONC 30.3 g/dL (32.0-36.0); Mean Corpuscular Hemoglobin 27.1 pg (27.0-31.0); Mean Corpuscular Volume 89.5 fl (81.0-99.0); Mean Platelet Volume 7.9 fL (7.4-10.4); Platelet Count 477 thou/uL (130-400); RBC Distribution Width 16.5 % (11.5-14.5); Red Blood Cell (RBC) Count 3.29 mill/uL (4.20-5.40); White Blood Cell (WBC) Count 10.3 thou/uL (4.8-10.8)
[2017-06-26 04:46] LABS: Anion Gap 14 mmol/L (10-20); BUN (Urea Nitrogen) 26 mg/dL (9.8-20.1); Calc. Creatinine Clearance 17 mL/min (70-130); Carbon Dioxide 26 mmol/L (23-31); Chloride 99 mmol/L (98-107); Estimated GFR-MDRD 12; Glucose 82 mg/dL (80-115); Potassium 3.9 mmol/L (3.5-5.1); Sodium 135 mmol/L (136-145)
[2017-06-26] MEDS: Piperacillin/Tazobactam 2.25 GM in Sodium Chloride 0.9% 100 ML IVPB SCH ×3 (05:15→20:49)
[2017-06-26] MEDS: Famotidine 20 MG TAB PO SCH (08:42)
[2017-06-26] MEDS: Cinacalcet HCl 30 MG TAB PO SCH (08:42)
[2017-06-26] MEDS: Folic Acid/Vit B Comp W-C PO SCH (08:42)
[2017-06-26] MEDS: Saccharomyces boulardii 250 MG CAP PO SCH (08:43)
[2017-06-26] MEDS: Calcium Acetate 667 MG CAP PO SCH ×3 (08:43→17:03)
[2017-06-26] MEDS: Docusate 100 MG CAP PO SCH (08:43)
[2017-06-26] MEDS: Escitalopram Oxalate 20 mg Tablet PO SCH (08:43)
[2017-06-26] MEDS: Aspirin 81 mg Enteric Coated Tablet PO SCH (08:44)
[2017-06-26] MEDS: Acetaminophen 325 MG TAB PO PRN (09:59)
--- NOTE | 2017-06-26 16:02 | PDOC.PN ---
- Subjective Encounter Start Date: 06/25/17 Encounter Start Time: 13:30 -: old records requested/rev Pt seen and examined, chart reviewed in its entirety. This is my first visit with this patient Pt admitted for HCAP, sepsis, found to have MRSA infection of her right arm graft. about 2 days ago, began to have drainiange form left upper arm nonfunctioning graft. Cx with MRSA. originally planned ot transition to ID soon, [facility]. Due to thsi developemnt, i am concerned about possibly needing to remove LUE graft, but Dr Zachery cabrera out of town until this weekend, will continue abx, discuss with Dr Valdez. no F/c, no N/V/D/C, no CP or sOB, tawny HD earlier today 10 point ROS performed and neg for all systems except as per HPI - Objective Resuscitation Status: Resuscitation Status FULL:Full Resuscitation MAR Reviewed: Yes Vital Signs & Weight: Vital Signs (12 hours) Temp Pulse Resp Pulse Ox 06/26/17 13:23 72 18 98 06/26/17 08:00 98.0 F 74 18 06/26/17 06:13 74 18 94 L Weight Admit Weight 152 lb 11.2 oz Weight 157 lb 3.03 oz I&O: 06/25/17 06/26/17 06/27/17 06:59 06:59 06:59 Intake Total 1282 1100 600 Output Total 170 3650 Balance 1112 -2550 600 Result Diagrams: 06/26/17 04:11 06/26/17 04:11 Radiology Reviewed by me: Yes EKG Reviewed by me: Yes Phys Exam - Physical Examination Constitutional: NAD HEENT: PERRLA, moist MMs, sclera anicteric, oral pharynx no lesions Neck: no nodes, no JVD, supple, full ROM Respiratory: no wheezing, no rales, no rhonchi, clear to auscultation bilateral Cardiovascular: RRR, no significant murmur, no rub Gastrointestinal: soft, non-tender, no distention, positive bowel sounds Musculoskeletal: pulses present, edema present Neurological: non-focal, normal sensation, moves all 4 limbs Lymphatic: no nodes Psychiatric: normal affect, A&O x 3 Skin: normal turgor Deviation from normal: LUE old graft wite with purulent drainage. RUE VAC site CDI Dx/Plan (1) AV fistula infection Code(s): T82.7XXA - INFECT/INFLM REACT D/T OTH CARDI/VASC DEV/IMPLNT/GRFT, INIT Status: Acute Comment: suspect BUE AV graft stie infection. she states both artifical, though i am unsure. if LUE is nonfunctional, and infected, may need to be removed, will hvae here until Dr Morris returns. pt states she is supposed to go to surgery next with Dr Morirs for her right arm (2) Acute on chronic diastolic (congestive) heart failure Code(s): I50.33 - ACUTE ON CHRONIC DIASTOLIC (CONGESTIVE) HEART FAILURE Status : Acute (3) Demand ischemia Code(s): I24.8 - OTHER FORMS OF ACUTE ISCHEMIC HEART DISEASE Status: Acute (4) Hyponatremia Code(s): E87.1 - HYPO-OSMOLALITY AND HYPONATREMIA Status: Acute (5) Left lower lobe pneumonia Code(s): J18.1 - LOBAR PNEUMONIA, UNSPECIFIED ORGANISM Status: Acute Qualifiers: Pneumonia type: due to unspecified organism Qualified Code(s): J18.1 - Lobar pneumonia, unspecified organism (6) Sepsis Code(s): A41.9 - SEPSIS, UNSPECIFIED ORGANISM Status: Acute Qualifiers: Sepsis type: methicillin resistant Staphylococcus aureus Qualified Code(s) : A41.02 - Sepsis due to Methicillin resistant Staphylococcus aureus (7) Anemia in chronic kidney disease Code(s): N18.9 - CHRONIC KIDNEY DISEASE, UNSPECIFIED; D63.1 - ANEMIA IN CHRONIC KIDNEY DISEASE Status: Chronic Qualifiers: Chronic kidney disease stage: on chronic dialysis Qualified Code(s): N18.6 - End stage renal disease; D63.1 - Anemia in chronic kidney disease; D63.1 - Anemia in chronic kidney disease; Z99.2 - Dependence on renal dialysis; Z99.2 - Dependence on renal dialysis; Z99.2 - Dependence on renal dialysis; Z99.2 - Dependence on renal dialysis Comment: (8) Anxiety and depression Code(s): F41.9 - ANXIETY DISORDER, UNSPECIFIED; F32.9 - MAJOR DEPRESSIVE DISORDER, SINGLE EPISODE, UNSPECIFIED Status: Chronic Comment: (9) CAD (coronary artery disease) Code(s): I25.10 - ATHSCL HEART DISEASE OF [place] CORONARY ARTERY W/O ANG PCTRS Status: Chronic (10) ESRD (end stage renal disease) on dialysis Code(s): N18.6 - END STAGE RENAL DISEASE; Z99.2 - DEPENDENCE ON RENAL DIALYSIS Status: Chronic Comment: (11) Hypertension Code(s): I10 - ESSENTIAL (PRIMARY) HYPERTENSION Status: Chronic Qualifiers: Hypertension type: essential hypertension Qualified Code(s): I10 - Essential (primary) hypertension (12) Secondary hyperparathyroidism of renal origin Code(s): N25.81 - SECONDARY HYPERPARATHYROIDISM OF RENAL ORIGIN Status: Chronic - Plan * .
--- NOTE | 2017-06-26 16:12 | PDOC.PN ---
- Subjective Encounter Start Date: 06/26/17 Encounter Start Time: 14:00 Pt feels better, less draiange form LUE wound, RUE VAC intact. no f/c, no n/V/D /C. Discussed with yasir briefly today, favors removal if possible. 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 10 point ROS performed and neg for all systems except as per HPI pt refuses to go to her previous NH, informed case management yesterday and reminded today - Objective Resuscitation Status: Resuscitation Status FULL:Full Resuscitation MAR Reviewed: Yes Vital Signs & Weight: Vital Signs (12 hours) Temp Pulse Resp Pulse Ox 06/26/17 13:23 72 18 98 06/26/17 08:00 98.0 F 74 18 06/26/17 06:13 74 18 94 L Weight Admit Weight 152 lb 11.2 oz Weight 157 lb 3.03 oz I&O: 06/25/17 06/26/17 06/27/17 06:59 06:59 06:59 Intake Total 1282 1100 600 Output Total 170 3650 Balance 1112 -2550 600 Result Diagrams: 06/26/17 04:11 06/26/17 04:11 Phys Exam - Physical Examination Constitutional: NAD HEENT: PERRLA, moist MMs, sclera anicteric, oral pharynx no lesions Neck: no nodes, no JVD, supple, full ROM Respiratory: no wheezing, no rales, no rhonchi, clear to auscultation bilateral Cardiovascular: RRR, no significant murmur, no rub Gastrointestinal: soft, non-tender, no distention, positive bowel sounds Musculoskeletal: no edema, pulses present Neurological: non-focal, normal sensation, moves all 4 limbs Lymphatic: no nodes Psychiatric: normal affect, A&O x 3 Skin: no rash, normal turgor, cap refill <2 seconds Deviation from normal: LUE wound not draining, RUE wound VAC'd Dx/Plan (1) AV fistula infection Code(s): T82.7XXA - INFECT/INFLM REACT D/T OTH CARDI/VASC DEV/IMPLNT/GRFT, INIT Status: Acute Comment: suspect BUE AV graft stie infection. she states both artifical, though i am unsure. if LUE is nonfunctional, and infected, may need to be removed, will hvae here until Dr Morris returns. pt states she is supposed to go to surgery next with Dr Morris for her right arm (2) Acute on chronic diastolic (congestive) heart failure Code(s): I50.33 - ACUTE ON CHRONIC DIASTOLIC (CONGESTIVE) HEART FAILURE Status : Acute (3) Demand ischemia Code(s): I24.8 - OTHER FORMS OF ACUTE ISCHEMIC HEART DISEASE Status: Acute (4) Hyponatremia Code(s): E87.1 - HYPO-OSMOLALITY AND HYPONATREMIA Status: Acute (5) Left lower lobe pneumonia Code(s): J18.1 - LOBAR PNEUMONIA, UNSPECIFIED ORGANISM Status: Acute Qualifiers: Pneumonia type: due to unspecified organism Qualified Code(s): J18.1 - Lobar pneumonia, unspecified organism (6) Sepsis Code(s): A41.9 - SEPSIS, UNSPECIFIED ORGANISM Status: Acute Qualifiers: Sepsis type: methicillin resistant Staphylococcus aureus Qualified Code(s) : A41.02 - Sepsis due to Methicillin resistant Staphylococcus aureus (7) Anemia in chronic kidney disease Code(s): N18.9 - CHRONIC KIDNEY DISEASE, UNSPECIFIED; D63.1 - ANEMIA IN CHRONIC KIDNEY DISEASE Status: Chronic Qualifiers: Chronic kidney disease stage: on chronic dialysis Qualified Code(s): N18.6 - End stage renal disease; D63.1 - Anemia in chronic kidney disease; D63.1 - Anemia in chronic kidney disease; Z99.2 - Dependence on renal dialysis; Z99.2 - Dependence on renal dialysis; Z99.2 - Dependence on renal dialysis; Z99.2 - Dependence on renal dialysis Comment: (8) Anxiety and depression Code(s): F41.9 - ANXIETY DISORDER, UNSPECIFIED; F32.9 - MAJOR DEPRESSIVE DISORDER, SINGLE EPISODE, UNSPECIFIED Status: Chronic Comment: (9) CAD (coronary artery disease) Code(s): I25.10 - ATHSCL HEART DISEASE OF [place] CORONARY ARTERY W/O ANG PCTRS Status: Chronic (10) ESRD (end stage renal disease) on dialysis Code(s): N18.6 - END STAGE RENAL DISEASE; Z99.2 - DEPENDENCE ON RENAL DIALYSIS Status: Chronic Comment: (11) Hypertension Code(s): I10 - ESSENTIAL (PRIMARY) HYPERTENSION Status: Chronic Qualifiers: Hypertension type: essential hypertension Qualified Code(s): I10 - Essential (primary) hypertension (12) Secondary hyperparathyroidism of renal origin Code(s): N25.81 - SECONDARY HYPERPARATHYROIDISM OF RENAL ORIGIN Status: Chronic - Plan * .
[2017-06-26] MEDS: Pravastatin Sodium 20 MG TAB PO SCH (20:48)
[2017-06-26] MEDS: traMADol HCl 50 MG TAB PO PRN (20:49)
[2017-06-26] MEDS: Temazepam 15 MG CAP PO PRN (20:49)
[2017-06-27] MEDS: traMADol HCl 50 MG TAB PO PRN ×2 (03:56→20:30)
[2017-06-27] MEDS: Midodrine HCl 5 MG TAB PO SCH (05:22)
[2017-06-27] MEDS: Piperacillin/Tazobactam 2.25 GM in Sodium Chloride 0.9% 100 ML IVPB SCH ×3 (05:22→20:32)
[2017-06-27 07:42] LABS: Vancomycin, Trough 13.1 ug/mL
[2017-06-27] MEDS: Calcium Acetate 667 MG CAP PO SCH ×3 (08:00→17:26)
[2017-06-27] MEDS: Vancomycin HCl 500 MG in Sodium Chloride 0.9% 100 ML IVPB SCH (08:55)
--- NOTE | 2017-06-27 09:11 | PRG ---
DATE OF SERVICE: 06/27/2017 SUBJECTIVE: Ms. Rodriguez is a 66-year-old white female with ESRD and being followed by the [facility] for her maintenance hemodialysis. She is currently undergoing dialysis. I am at the bedside supervising the dialysis. She is tolerating the said dialysis. She has also an ongoing right upper extremity infection. Currently on IV antibiotics. ID following. No other complaints, no chest pain or shortness of breath. PHYSICAL EXAMINATION: VITAL SIGNS: Blood pressure is 156/67, heart rate 85, respiratory rate 18, temperature 97.4, pulse o x 95%. GENERAL: Noted to be awake, supine, comfortable, not in distress. SKIN: Adequate turgor. HEENT: Slightly pale conjunctivae, anicteric sclerae. NECK: No neck mass, no carotid bruits, no JVD. CHEST: No deformities. LUNGS: Clear breath sounds, no wheezing, no crackles. HEART: Normal sinus rhythm. No murmur, no gallops or rubs. ABDOMEN: Globular, soft, nontender. No masses. EXTREMITIES: No edema. Positive for right upper extremity dressing with a wound VAC. MEDICATIONS: 06/27/2017 - Reviewed. LABORATORY: 06/26/2017 - White count 10.3, hemoglobin 8.9. Sodium 135, potassium 2.9, chloride 99, carbon dioxide 26, BUN 26, creatinine 3.64, glucose 82, calcium 8. ASSESSMENT AND PLAN: 1. End-stage renal disease, stable. Tolerating current hemodialysis regimen. Fluid removal as tole rated. My plan is to continue Friday, Friday, Friday dialysis. 2. Anemia, on weekly Epogen. 3. Right upper extremity cellulitis - on wound VAC. Surgery and ID is following. Continuing IV van comycin. Recheck base met and CBC in a.m.
[2017-06-27] MEDS: Aspirin 81 mg Enteric Coated Tablet PO SCH (11:01)
[2017-06-27] MEDS: Saccharomyces boulardii 250 MG CAP PO SCH (11:01)
[2017-06-27] MEDS: Famotidine 20 MG TAB PO SCH (11:01)
[2017-06-27] MEDS: Docusate 100 MG CAP PO SCH (11:01)
[2017-06-27] MEDS ORDERED: Heparin 1,000 UNITS/ML VIAL ONE (11:11)
[2017-06-27] MEDS: Folic Acid/Vit B Comp W-C PO SCH (11:46)
[2017-06-27] MEDS: Cinacalcet HCl 30 MG TAB PO SCH (11:46)
[2017-06-27] MEDS: Escitalopram Oxalate 20 mg Tablet PO SCH (11:46)
[2017-06-27] MEDS: Carvedilol 25 MG TAB PO SCH ×2 (11:46→20:31)
--- NOTE | 2017-06-27 15:11 | PDOC.PN ---
- Subjective Encounter Start Date: 06/27/17 Encounter Start Time: 15:08 Ms. Rodriguez was seen today in follow-up of MRSA sepsis, and HCAP. She says she is feeling better today. She is excited that she got up to walk with PT today. - Objective Resuscitation Status: Resuscitation Status FULL:Full Resuscitation MAR Reviewed: Yes Vital Signs & Weight: Vital Signs (12 hours) Temp Pulse Resp BP Pulse Ox 06/27/17 12:00 96 06/27/17 11:59 84 20 96 06/27/17 11:04 98.4 F 81 18 96 06/27/17 10:57 98.4 F 81 18 158/51 H 96 06/27/17 04:58 95 Weight Admit Weight 152 lb 11.2 oz Weight 157 lb 3.03 oz I&O: 06/26/17 06/27/17 06/28/17 06:59 06:59 06:59 Intake Total 1100 1620 Output Total 3650 240 Balance -2550 1380 Result Diagrams: 06/26/17 04:11 06/26/17 04:11 Phys Exam - Physical Examination HEENT: PERRLA Respiratory: no wheezing, no rales, no rhonchi, clear to auscultation bilateral Cardiovascular: RRR, no significant murmur, no rub Gastrointestinal: soft, non-tender, no distention, positive bowel sounds Musculoskeletal: no edema Dx/Plan (1) HCAP (healthcare-associated pneumonia) Code(s): J18.9 - PNEUMONIA, UNSPECIFIED ORGANISM Status: Acute (2) MRSA bacteremia Code(s): R78.81 - BACTEREMIA Status: Acute (3) AV fistula infection Code(s): T82.7XXA - INFECT/INFLM REACT D/T OTH CARDI/VASC DEV/IMPLNT/GRFT, INIT Status: Acute Comment: suspect BUE AV graft stie infection. she states both artifical, though i am unsure. if LUE is nonfunctional, and infected, may need to be removed, will hvae here until Dr Morris returns. pt states she is supposed to go to surgery next with Dr Morris for her right arm (4) Acute on chronic diastolic (congestive) heart failure Code(s): I50.33 - ACUTE ON CHRONIC DIASTOLIC (CONGESTIVE) HEART FAILURE Status : Acute (5) Left lower lobe pneumonia Code(s): J18.1 - LOBAR PNEUMONIA, UNSPECIFIED ORGANISM Status: Acute Qualifiers: Pneumonia type: due to unspecified organism Qualified Code(s): J18.1 - Lobar pneumonia, unspecified organism (6) ESRD (end stage renal disease) on dialysis Code(s): N18.6 - END STAGE RENAL DISEASE; Z99.2 - DEPENDENCE ON RENAL DIALYSIS Status: Chronic Comment: (7) Hypertension Code(s): I10 - ESSENTIAL (PRIMARY) HYPERTENSION Status: Chronic Qualifiers: Hypertension type: essential hypertension Qualified Code(s): I10 - Essential (primary) hypertension - Plan * Patient seen and chart reviewed, Ms. Rodriguez has a history of ESRD on HD, and recent admission to our facility and was admitted with acute respiratory distress due to healthcare associated pneumonia,superimposed on volume overload. She also was found to have an infected AV graft, and blood cultures are positive for MRSA. * She is currently receiving Vancomycin via sliding scale for the MRSA infection * HCAP- continue Zosyn, and she likely can be transitioned to an oral antibiotic soon * ESRD- continue HD * HTN- blood pressure is a bit elevated- will monitor * Deconditioning- continue PT/OT. and await approval for [facility]
[2017-06-27] MEDS: Temazepam 15 MG CAP PO PRN (20:30)
[2017-06-27] MEDS: Pravastatin Sodium 20 MG TAB PO SCH (20:31)
[2017-06-28 05:23] LABS: #Basophils 0.1 thou/uL (0.0-0.2); #Eosinphils 0.5 thou/uL (0.0-0.7); #Monocytes 0.7 thou/uL (0.11-0.59); #Neutrophils 6.2 thou/uL (1.40-6.50); %Basophils 0.9 % (0.0-1.0); %Eosinophils 5.8 % (0.0-10.0); %Lymphocytes 20.9 % (21.0-51.0); %Monocytes 7.3 % (0.0-10.0); %Neutrophils 65.2 % (42.0-75.0); Hemoglobin 8.5 g/dL (12.0-16.0); Mean Corpuscular HGB CONC 30.9 g/dL (32.0-36.0); Mean Corpuscular Hemoglobin 27.5 pg (27.0-31.0); Mean Corpuscular Volume 89.2 fl (81.0-99.0); Mean Platelet Volume 7.5 fL (7.4-10.4); Platelet Count 402 thou/uL (130-400); RBC Distribution Width 16.8 % (11.5-14.5); Red Blood Cell (RBC) Count 3.08 mill/uL (4.20-5.40); White Blood Cell (WBC) Count 9.5 thou/uL (4.8-10.8)
[2017-06-28] MEDS: Piperacillin/Tazobactam 2.25 GM in Sodium Chloride 0.9% 100 ML IVPB SCH ×2 (05:26→15:05)
[2017-06-28 05:32] LABS: Anion Gap 14 mmol/L (10-20); BUN (Urea Nitrogen) 24 mg/dL (9.8-20.1); Calc. Creatinine Clearance 18 mL/min (70-130); Calcium 8.2 mg/dL (7.8-10.44); Carbon Dioxide 24 mmol/L (23-31); Chloride 102 mmol/L (98-107); Estimated GFR-MDRD 13; Glucose 84 mg/dL (80-115); Potassium 3.7 mmol/L (3.5-5.1); Sodium 136 mmol/L (136-145)
[2017-06-28 07:22] VITALS: BP 161/61; TEMP 98.6
[2017-06-28] MEDS: Cinacalcet HCl 30 MG TAB PO SCH (08:09)
[2017-06-28] MEDS: Saccharomyces boulardii 250 MG CAP PO SCH (08:09)
[2017-06-28] MEDS: Famotidine 20 MG TAB PO SCH (08:09)
[2017-06-28] MEDS: Folic Acid/Vit B Comp W-C PO SCH (08:09)
[2017-06-28] MEDS: Aspirin 81 mg Enteric Coated Tablet PO SCH (08:10)
[2017-06-28] MEDS: Escitalopram Oxalate 20 mg Tablet PO SCH (08:10)
[2017-06-28] MEDS: Calcium Acetate 667 MG CAP PO SCH ×3 (08:10→17:36)
[2017-06-28] MEDS: Docusate 100 MG CAP PO SCH (08:10)
[2017-06-28] MEDS: traMADol HCl 50 MG TAB PO PRN ×2 (08:15→17:36)
--- NOTE | 2017-06-28 13:26 | PDOC.PN ---
- Subjective Encounter Start Date: 06/28/17 Encounter Start Time: 13:24 Ms. Rodriguez was seen today in follow-up of Pneumonia and MRSA infection. She does not have any complaints except for some dyspnea, and congestion. - Objective Resuscitation Status: Resuscitation Status FULL:Full Resuscitation MAR Reviewed: Yes Vital Signs & Weight: Vital Signs (12 hours) Temp Pulse Resp BP Pulse Ox 06/28/17 08:00 98.6 F 80 18 94 L 06/28/17 07:17 98.6 F 80 18 161/61 H 94 L 06/28/17 06:46 78 20 95 06/28/17 02:26 96 Weight Admit Weight 152 lb 11.2 oz Weight 157 lb 3.03 oz I&O: 06/27/17 06/28/17 06/29/17 06:59 06:59 06:59 Intake Total 1620 1270 Output Total 240 2600 Balance 1380 -1330 Result Diagrams: 06/28/17 04:43 06/28/17 04:43 Phys Exam - Physical Examination HEENT: PERRLA + rhonchi bilaterally no rales Cardiovascular: RRR, no significant murmur, no rub Gastrointestinal: soft, non-tender, no distention, positive bowel sounds Musculoskeletal: edema present + right upper extremity edema Neurological: non-focal, moves all 4 limbs Dx/Plan (1) HCAP (healthcare-associated pneumonia) Code(s): J18.9 - PNEUMONIA, UNSPECIFIED ORGANISM Status: Acute (2) MRSA bacteremia Code(s): R78.81 - BACTEREMIA Status: Acute (3) AV fistula infection Code(s): T82.7XXA - INFECT/INFLM REACT D/T OTH CARDI/VASC DEV/IMPLNT/GRFT, INIT Status: Acute Comment: suspect BUE AV graft stie infection. she states both artifical, though i am unsure. if LUE is nonfunctional, and infected, may need to be removed, will hvae here until Dr Morris returns. pt states she is supposed to go to surgery next with Dr Morris for her right arm (4) Acute on chronic diastolic (congestive) heart failure Code(s): I50.33 - ACUTE ON CHRONIC DIASTOLIC (CONGESTIVE) HEART FAILURE Status : Acute (5) Left lower lobe pneumonia Code(s): J18.1 - LOBAR PNEUMONIA, UNSPECIFIED ORGANISM Status: Acute Qualifiers: Pneumonia type: due to unspecified organism Qualified Code(s): J18.1 - Lobar pneumonia, unspecified organism (6) ESRD (end stage renal disease) on dialysis Code(s): N18.6 - END STAGE RENAL DISEASE; Z99.2 - DEPENDENCE ON RENAL DIALYSIS Status: Chronic Comment: (7) Hypertension Code(s): I10 - ESSENTIAL (PRIMARY) HYPERTENSION Status: Chronic Qualifiers: Hypertension type: essential hypertension Qualified Code(s): I10 - Essential (primary) hypertension - Plan * HCAP- will change antibiotics to Cipro and Flagyl for a few more days * MRSA bacteremia, and Rigth upper extremity infection- continue Vancomycin with dialysis- the plan to to try to salvage the AV fistula * Continue local wound care * ESRD- stable * HTN- blood pressure is stable.
--- NOTE | 2017-06-28 14:05 | PRG ---
DATE OF SERVICE: 06/28/2017 SUBJECTIVE: Ms. Rodriguez is doing well. She is afebrile. Cultures from her right arm have grown out MRSA. Blood cultures negative. The wound VAC was removed today and her wound is granulating hea lthy. The cellulitis is resolved. ASSESSMENT AND PLAN: Right upper arm dialysis prosthetic PTFE graft with overlying wound infection n ear the arterial inflow above the antecubital fossa. Cellulitis has resolved. I would recommend int ravenous antibiotics, vancomycin administered during dialysis, dosing per Nephrology as an outpatient with dialysis and wound VAC care. Wound VAC care could be provided at home by home health or in the care facility. The patient wants to go home. At this point, I think we should make efforts to try to salvage this prosthetic graft as removal was very difficult with risk of arterial bleeding and art eriorrhaphy healing issues. Certainly, the graft can be removed in the future if this infection coul d not be cleared with intravenous antibiotics and secondary wound healing. At this point, I will see her in the office in 2 to 3 weeks. From my standpoint, she is ready for discharge anytime once outp atient wound VAC care is arranged and outpatient vancomycin administration during dialysis is arrange d.
[2017-06-28] MEDS: Epoetin (ESRD) 10,000 UNITS/ML VIAL SC SCH (16:07)
--- NOTE | 2017-06-28 23:18 | DIS ---
PRIMARY CARE PHYSICIAN: Dr. Hassan. DATE OF ADMISSION: 06/23/2017 DATE OF DISCHARGE: 06/28/2017 DISCHARGE DISPOSITION: To the [facility]. DISCHARGE DIAGNOSES: 1. Hospital-acquired pneumonia. 2. 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 3. Methicillin-resistant Staph bacteremia and sepsis. 4. Acute respiratory failure due to pneumonia. Hospital acquired pneumonia is resolved. 5. End-stage renal disease on hemodialysis. 6. Chronic diastolic heart failure. 7. Hypertension. DISCHARGE MEDICATIONS: Include Augmentin 250 mg twice daily; aspirin 81 mg daily; Nephro-Mimi 1 tabl et daily; carvedilol 12.5 mg twice a day; Sensipar 30 mg daily; docusate 100 mg daily; escitalopram 2 0 mg daily; loratadine 10 mg at bedtime; ProAmatine 10 mg Friday, Friday, Friday; pravastatin 10 m g at bedtime; Florastor 250 mg daily; and temazepam 15 mg at bedtime as needed. PROCEDURES DONE DURING ADMISSION: The patient had an arteriovenous shunt angiogram, which demonstrat ed a patent right upper extremity fistula. CODE STATUS: FULL CODE. ALLERGIES: ATORVASTATIN, CEFUROXIME, MEPERIDINE, and NITROFURANTOIN. HOSPITAL COURSE: Ms. Rodriguez is a pleasant 66-year-old female who was brought in to the emergency room due to shortness of breath and fever. She was found to have a hospital-acquired pneumonia and also was found to have sepsis due to an infected AV fistula with methicillin-resistant Staph. She wa s treated with IV antibiotics, specifically Zosyn for the pneumonia and vancomycin for the MRSA sepsi s. She was evaluated by General Surgery to see the graft would be salvageable. Due to the fact that the patient has had numerous problems with previous AV fistulas with difficulty replacing them. The graft would attempt to be salvaged. She will be treated with long-term IV antibiotics via dialysis and local wound care with a wound VAC. She will need to see Dr. Morris in approximately 3 weeks to r eassess the wound and she will be transferred to the [facility] to accomplish this.
== END 2017-06-28 17:53 | DRG 314 ==
LOC: ERS 16:43 → 2NO 18:45 → T4-B 06-21 19:55
PROVIDERS: ADMIT Internal Medicine; ATTEND Internal Medicine
PROC: 5A1D70Z Performance of Urinary Filtration, Intermittent, Less than 6 Hours Per Day (ICD-10-PCS; principal; 2017-06-20)
PROC: 5A1D70Z Performance of Urinary Filtration, Intermittent, Less than 6 Hours Per Day (ICD-10-PCS; 2017-06-21)
PROC: 5A1D70Z Performance of Urinary Filtration, Intermittent, Less than 6 Hours Per Day (ICD-10-PCS; 2017-06-23)
PROC: 5A1D70Z Performance of Urinary Filtration, Intermittent, Less than 6 Hours Per Day (ICD-10-PCS; 2017-06-25)
PROC: B51WYZZ Fluoroscopy of Dialysis Shunt/Fistula using Other Contrast (ICD-10-PCS; 2017-06-25)
PROC: 5A1D70Z Performance of Urinary Filtration, Intermittent, Less than 6 Hours Per Day (ICD-10-PCS; 2017-06-27)
DX: T82.7XXA Infection and inflammatory reaction due to other cardiac and vascular devices, implants and grafts, initial encounter (principal); I50.33 Acute on chronic diastolic (congestive) heart failure; J96.01 Acute respiratory failure with hypoxia; J18.9 Pneumonia, unspecified organism; A41.02 Sepsis due to Methicillin resistant Staphylococcus aureus; N18.6 End stage renal disease; E87.1 Hypo-osmolality and hyponatremia; I13.2 Hypertensive heart and chronic kidney disease with heart failure and with stage 5 chronic kidney disease, or end stage renal disease; I24.8 Other forms of acute ischemic heart disease; N25.81 Secondary hyperparathyroidism of renal origin; L03.113 Cellulitis of right upper limb; I25.10 Atherosclerotic heart disease of native coronary artery without angina pectoris; K21.9 Gastro-esophageal reflux disease without esophagitis; E78.5 Hyperlipidemia, unspecified; M81.0 Age-related osteoporosis without current pathological fracture; D63.1 Anemia in chronic kidney disease; E87.6 Hypokalemia; F41.9 Anxiety disorder, unspecified; F32.9 Major depressive disorder, single episode, unspecified; E83.42 Hypomagnesemia; I25.2 Old myocardial infarction; Z99.2 Dependence on renal dialysis; Z85.3 Personal history of malignant neoplasm of breast; Z88.1 Allergy status to other antibiotic agents; Z88.8 Allergy status to other drugs, medicaments and biological substances; Z95.1 Presence of aortocoronary bypass graft; Z79.82 Long term (current) use of aspirin; Z79.899 Other long term (current) drug therapy; Z90.11 Acquired absence of right breast and nipple; Y83.8 Other surgical procedures as the cause of abnormal reaction of the patient, or of later complication, without mention of misadventure at the time of the procedure; Y95 Nosocomial condition
CPT/HCPCS: 36415; 36430; 36901; 71045; 71046; 76999; 80048; 80053; 80069; 80202; 82533; 83605; 83735; 83880; 84100; 84439; 84443; 84484; 85007; 85025; 85027; 86850; 86900; 86901; 87070; 87077; 87186; 87205; 87340; 90935; 93005; 94640; 94760; 96374; A4216; G0257; G8978-GP-CL; G8979-GP-CJ; G8987-GO-CK; G8988-GO-CI; J1644; J1940; J2543; J3370; J3475; J7050; J7620; P9016; Q0162; Q4081

== ENCOUNTER 2017-08-15 10:47 | Inpatient (IN) | payer MEDICARE, OTHER ==
--- NOTE | 2017-08-14 08:51 | HP ---
HISTORY OF PRESENT ILLNESS: Clarissa Rodriguez is a 67-year-old female, who dialyzes at [facility] Friday, Friday, and Friday. The patient is a DNR. She is accompanied by her sister who is also her power of workers compensation defense attorney. The patient dialyzes at 09:30 most days. Currently, the patient is followed by Dr. Hassan and Dr. Tulio Rucker is her city assessor. She currently is utilizing a left femoral vei n hemodialysis catheter. She had a left upper arm fistula placed in [place] and I saw her when she e xperienced aneurysmal hemorrhage requiring suture ligation. She later the same day underwent revisio n of the left upper arm fistula with thrombectomy and repair of aneurysm. Then, on 04/01/2017, had r ecurrent hemorrhage and underwent placement of an IJ hemodialysis catheter, right internal jugular ve in was not seen by ultrasound and felt to be occluded from previous surgeries. She received 2 units of blood at that time. At that time, her fistula was ligated due to a repairable fistula. On 2017, patient underwent a right arm primary fistula, perforating branch antecubital vein to proximal radial artery with the sole outflow vein, basilic identified. On 04/09/2017, she had to have a right femoral vein cuffed dialysis catheter placed and then on 05/20/2017, she underwent exploration of a right volar forearm wound, noting a fibrotic veins as her fistula had thrombosed. A graft tapered wa s placed from the brachial artery and axillary vein. Axillary vein was excellent caliber. She subse quently developed an infection over the arterial anastomosis and the distal upper arm just above the antecubital fossa. This was treated in the hospital with intravenous antibiotics and wound care. Rene zamorano continues to have purulent drainage. She reports the office today and her graft is thrombosed. Ev aluation of the chronic wound near the arterial anastomosis of the graft reveals purulent discharge. The patient has a chronic draining wound over the left arm. I have recommended return to the operat ing room and remove the segment of infected graft in the right arm near the arterial anastomosis whic h probably more than likely will require repair of the brachial artery with inherent risk of recurren t bleeding. Thus, she will be observed for a few days post-procedure, assure the wound is healing an d stable to minimize risk of bleeding. The patient also has a chronic draining wound in the left arm and this is probably a saxman vein fistula and we will explore this wound and perform procedures nec essary to treat this chronic draining wound that will not heal. In the future, the patient may need a right thigh axis graft. She has palpable pedal pulses. She wiggins s a left femoral vein hemodialysis catheter. After her last operation and medical problems, she had a short stay in the [facility] and now is living at home. She is mobile using her wheelchair. She is anxious about having r eturned to the [facility] in hopes to be able to return home after her surgical proced ures. MEDICATIONS: Tylenol as needed, Flonase, temazepam 15 mg at bedtime, tramadol as needed, pravastatin 10 mg a day, midodrine 10 mg tablets on dialysis days, carvedilol 12.5 mg every day, Dulcolax p.r.n. , inhalers every six hours as needed, aspirin 81 mg a day, loratadine daily, Zantac daily, cinacalcet 30 mg once a day, Nephro-Mimi daily, Prilosec 20 mg a day, Colace daily, epoetin injections. PAST SURGICAL HISTORY: Right mastectomy in 1989, right nephrectomy age 6 due to blockage, partial hy sterectomy to prevent in 1968, right wrist ORIF, dialysis fistula left arm, coronary artery bypass grafting 2 vessels in 2002, urostomy in 1960. Valve replacement in 2002, right knee surgery 11/2015, ORIF right distal intraarticular femur fracture on the right septic knee, cardiac ablation i n 06/2016, left upper arm fistula ligation as noted after unsuccessful attempts of aneurysm repair an d recurrent hemorrhage, right arm primary fistula with subsequent thrombosis of the right arm graft p lacement as noted above on 05/20/2017. TOBACCO: None. ALCOHOL: None. ALLERGIES: CEFTIN, DEMEROL, LIPITOR, MACRODANTIN, ZOCOR, DEMEROL, Adhesives. PHYSICAL EXAMINATION: VITAL SIGNS: 130 pounds, 63 inches, 141/72, 93 heart rate, 97.7 degrees. HEENT: Unremarkable. LUNGS: Clear to auscultation. CARDIAC: Regular rate and rhythm without murmur. EXTREMITIES: Unremarkable. Right upper extremity reveals dialysis graft is thrombosed without thril l or bruit. Over the distal upper arm by the antecubital fossa, there is a punctate opening with thi n skin is fluctuant and using Q-tips, this thin skin was opened. There was purulent drainage. This seems to extend deep tangentially towards the graft. There is no active cellulitis. The remainder o f the arm looks normal. Left upper extremity reveals a small wound mid upper arm overlying her throm bosed fistula that has some chronic drainage. There is some granulation tissue over the distal arm j ust above the antecubital fossa. ASSESSMENT AND PLAN: 1. End-stage renal disease with dialysis access problems. She has been chronically infected graft r ight arm. Attempts to salvage this have been unsuccessful as it is thrombosed this time. We would r ecommend removal of infected segment of the graft. Hopefully, we can avoid removal of the entire gra ft. We will plan this under anesthesia in the near future. In addition, she has a nonhealing wound mid upper arm. We will explore that under the same anesthesia. We will use her dialysis catheter gr oin for IV access blood draws. Hopefully, we can avoid [facility] stay posto peratively, but we will need to watch in the hospital for a few days postoperatively to assure her wo unds are healing. She can follow up in my office in 2-3 weeks. 2. The patient is a DNR. She states that she wished that she never would start a dialysis. I asked her if she is interested in stopping dialysis, but she said she did not want to do at this time and wishes to proceed with care as indicated.
[2017-08-14 09:23] VITALS: BMI 21.9
[2017-08-15] MEDS ORDERED: Vancomycin HCl 1 GM in Premix Bag 1 BAG IVPB SCH (11:30)
[2017-08-15] MEDS ORDERED: Cefepime 2 GM in Sodium Chloride 0.9% 100 ML IVPB SCH (11:30)
[2017-08-15 11:53] LABS: #Basophils 0.1 thou/uL (0.0-0.2); #Eosinphils 0.5 thou/uL (0.0-0.7); #Lymphocytes 2.1 thou/uL (1.20-3.40); #Monocytes 0.7 thou/uL (0.11-0.59); #Neutrophils 5.5 thou/uL (1.40-6.50); %Basophils 1.2 % (0.0-1.0); %Eosinophils 5.5 % (0.0-10.0); %Lymphocytes 23.5 % (21.0-51.0); %Monocytes 7.5 % (0.0-10.0); %Neutrophils 62.4 % (42.0-75.0); Hemoglobin 7.9 g/dL (12.0-16.0); Mean Corpuscular HGB CONC 29.4 g/dL (32.0-36.0); Mean Corpuscular Hemoglobin 26.6 pg (27.0-31.0); Mean Corpuscular Volume 90.4 fL (78.0-98.0); Mean Platelet Volume 7.4 fL (7.4-10.4); Platelet Count 510 thou/uL (130-400); RBC Distribution Width 17.6 % (11.5-14.5); Red Blood Cell (RBC) Count 2.97 mill/uL (4.20-5.40); White Blood Cell (WBC) Count 8.9 thou/uL (4.8-10.8)
[2017-08-15] MEDS ORDERED: Midazolam HCl 2 mg/2 ml Vial ONE ×2 (12:10→13:43)
[2017-08-15 12:18] LABS: Anion Gap 16 mmol/L (10-20); BUN (Urea Nitrogen) 51 mg/dL (9.8-20.1); Calc. Creatinine Clearance 10 mL/min (70-130); Calcium 9.3 mg/dL (7.8-10.44); Carbon Dioxide 25 mmol/L (23-31); Chloride 100 mmol/L (98-107); Estimated GFR-MDRD 9; Glucose 101 mg/dL (80-115); Potassium 4.2 mmol/L (3.5-5.1); Sodium 137 mmol/L (136-145)
[2017-08-15 12:21] LABS: Hypochromia SLIGHT = 6-15 cells (100X) (0-5/hpf); MDiff Complete? YES; PLT Morphology Comment Appears Increased; Polychromasia SLIGHT = 2-3 cells (100X) (0-2/hpf)
[2017-08-15] MEDS ORDERED: Protamine Sulfate 50 MG/5 ML VIAL ONE (13:13)
[2017-08-15] MEDS ORDERED: Lidocaine 2% 10 ML INJ ONE (13:13)
[2017-08-15] MEDS ORDERED: Heparin 5,000 UNITS/ML VIAL ONE (13:13)
[2017-08-15] MEDS ORDERED: Ioversol 68 % 50 ML VIAL ONE (13:13)
[2017-08-15] MEDS ORDERED: Bupivacaine HCl 0.5%/Epinephrine 1:200,000/PF 30 ml Vial ONE (13:13)
[2017-08-15] MEDS ORDERED: Fentanyl 100 MCG/2 ML VIAL ONE ×2 (14:17→16:28)
[2017-08-15] MEDS ORDERED: Phenylephrine HCL 10 MG/ML VIAL ONE (15:00)
[2017-08-15] MEDS ORDERED: PHENYLEPHRINE-NS 100 MCG/ML 10 ML SYRINGE ONE (15:00)
[2017-08-15] MEDS ORDERED: Sodium Chloride 0.9% 0 ML ONE (15:44)
[2017-08-15] MEDS ORDERED: Heparin 10,000 UNITS/1 ML VIAL ONE (16:01)
[2017-08-15] MEDS ORDERED: Ondansetron HCl/PF 4 MG/2 ML Vial IVP PRN (16:19)
[2017-08-15] MEDS ORDERED: Morphine Sulfate 2 MG/ML SYRINGE SLOW IVP PRN (16:19)
[2017-08-15] MEDS ORDERED: Promethazine HCl 25 MG/ML VIAL IM PRN (16:19)
[2017-08-15] MEDS ORDERED: Promethazine HCl 25 MG/ML VIAL SLOW IVP PRN (16:19)
[2017-08-15] MEDS ORDERED: Dextrose 50% Abboject 50 ML SYRINGE SLOW IVP PRN (16:22)
[2017-08-15] MEDS ORDERED: hydrALAZINE 20 MG/ML VIAL SLOW IVP PRN (16:22)
[2017-08-15] MEDS ORDERED: Dextrose 5% in Water 1,000 ML IV PRN (16:22)
[2017-08-15] MEDS ORDERED: traMADol HCl 50 MG TAB PO PRN (16:25)
[2017-08-15] MEDS ORDERED: Temazepam 15 MG CAP PO PRN (16:27)
[2017-08-15] MEDS: Pravastatin Sodium 20 MG TAB PO SCH (20:43)
[2017-08-15] MEDS: Calcium Acetate 667 MG CAP PO SCH (20:43)
[2017-08-15] MEDS: diphenhydrAMINE 25 MG CAP PO PRN (20:44)
[2017-08-15] MEDS: Loratadine 10 MG TAB PO SCH (20:44)
[2017-08-15] MEDS: Carvedilol 25 MG TAB PO SCH (20:44)
--- NOTE | 2017-08-15 21:38 | OP ---
DATE OF PROCEDURE: 08/15/2017 PREOPERATIVE DIAGNOSES: End-stage renal disease, urostomy, dysfunctional left femoral vein hemodialy sis catheter, infected dialysis graft in right upper arm. POSTOPERATIVE DIAGNOSES: End-stage renal disease, urostomy, dysfunctional left femoral vein hemodial ysis catheter, infected dialysis graft in right upper arm. PROCEDURES: Removal of cuffed tunneled hemodialysis catheter in left femoral vein and placement of a new hemodialysis catheter. Excision of infected graft, right upper arm, segmental, distal graft wit h brachial arteriorrhaphy longitudinal. SURGEON: Trae Morris MD ANESTHESIA: General, local 0.5% Marcaine with epinephrine 30 mL mixed with 2% Xylocaine 10 mL DESCRIPTION OF PROCEDURE: The patient was taken to the operating room under general anesthesia. Her right upper extremity was prepared with ChloraPrep, draped in routine fashion. The patient had a di alysis graft from her brachial artery to axillary vein. The arterial end was infected. Incision mad e over the noninfected portion of the graft in the mid upper arm, carried down to skin and subcutaneo us tissue, graft dissected free. It had been thrombosed. Thus, it was transected proximally and the segment of graft dissected free distally towards the arterial anastomosis. It was transected, remov ed, and subcutaneous tissue was approximated with 3-0 Monocryl and skin with subdermal 4-0 Monocryl a nd DermaGlue applied. Another incision was made over the infected segment of graft where the graft anastomosed to the brach ial artery. Brachial artery was dissected free, controlled proximally and distally with vessel loops . The patient was given 5000 units of heparin intravenously. After adequate circulation time, the b rachial artery was clamped proximally and distally, and the graft was then taken down from anastomosi s. Longitudinal brachial arteriorrhaphy was performed with continuous locking suture of 6-0 Prolene. After completion of this, vascular clamps were released and there was good flow per Doppler interro gation. Wound was irrigated. Subcutaneous tissues overlying the repaired segment of artery was clos ed with interrupted sutures of 3-0 Monocryl. Otherwise, the wound was left open and saline wet-to-dr y dressings applied. The patient had informed us that her hemodialysis catheter in left femoral vein was not functioning w ell. The arterial portal could not be aspirated despite vigorous flushing. The left thigh, groin, a nd lower abdomen were thus prepared with ChloraPrep, draped in routine fashion after suture removed f rom the preexisting graft and cuff removed from the subcutaneous tissues. I then made an incision in the left groin region overlying the catheter and dissection carried down dissecting the catheter ronald e, removing it out of the wound transecting it and J wiring it, removing the old catheter and leaving the J wire. Stab incision was made over a new exit point in left anterior lateral thigh and using t he tunneling device, the femoral vein dialysis catheter was placed between the two incisions, placed a fabric cuff beneath the skin exit site, and catheter secured with 2 interrupted sutures of 3-0 nylo n and Biopatch and Dermabond applied. Dilator and pull-away sheath were then placed over the J wire into femoral vein. Dilator and J wire were removed. Catheter was placed through the pull-away sheat h and pull-away sheath removed. Catheter noted to be in good position and aspirated of blood well an d flushed with heparinized saline. Then, heparinized with 1000 units of heparin per mL indicated vol ume on each port. Subcutaneous tissues were approximated with 3-0 Monocryl, skin with subdermal 4-0 Monocryl, and DermaGlue applied. The patient tolerated the procedure well. One unit of blood was tr ansfused due to preoperative hemoglobin of 7.
[2017-08-16 05:04] LABS: #Basophils 0.1 thou/uL (0.0-0.2); #Eosinphils 0.6 thou/uL (0.0-0.7); #Monocytes 0.5 thou/uL (0.11-0.59); #Neutrophils 3.9 thou/uL (1.40-6.50); %Basophils 1.1 % (0.0-1.0); %Lymphocytes 27.4 % (21.0-51.0); %Monocytes 7.4 % (0.0-10.0); %Neutrophils 55.1 % (42.0-75.0); Hemoglobin 7.7 g/dL (12.0-16.0); Mean Corpuscular HGB CONC 31.9 g/dL (32.0-36.0); Mean Corpuscular Hemoglobin 28.2 pg (27.0-31.0); Mean Corpuscular Volume 88.6 fL (78.0-98.0); Mean Platelet Volume 7.5 fL (7.4-10.4); Platelet Count 405 thou/uL (130-400); RBC Distribution Width 17.2 % (11.5-14.5); Red Blood Cell (RBC) Count 2.72 mill/uL (4.20-5.40); White Blood Cell (WBC) Count 7.2 thou/uL (4.8-10.8)
[2017-08-16 05:31] LABS: Anion Gap 17 mmol/L (10-20); BUN (Urea Nitrogen) 56 mg/dL (9.8-20.1); Calc. Creatinine Clearance 9 mL/min (70-130); Calcium 8.6 mg/dL (7.8-10.44); Carbon Dioxide 22 mmol/L (23-31); Chloride 99 mmol/L (98-107); Estimated GFR-MDRD 8; Glucose 80 mg/dL (80-115); Potassium 4.3 mmol/L (3.5-5.1); Sodium 134 mmol/L (136-145)
[2017-08-16] MEDS ORDERED: Epoetin (ESRD) 20,000 UNITS/ML SC SCH (10:30)
[2017-08-16] MEDS: Folic Acid/Vit B Comp W-C PO SCH (10:43)
[2017-08-16] MEDS: Polyethylene Glycol 3350 17 GM Packet PO SCH (10:43)
[2017-08-16] MEDS: Calcium Acetate 667 MG CAP PO SCH ×3 (10:44→21:14)
[2017-08-16] MEDS: Cinacalcet HCl 30 MG TAB PO SCH (10:44)
[2017-08-16] MEDS: Acetaminophen 500 MG TAB PO PRN ×2 (10:44→16:38)
[2017-08-16] MEDS: Escitalopram Oxalate 20 mg Tablet PO SCH (10:44)
[2017-08-16] MEDS: Docusate 100 MG CAP PO SCH (10:44)
[2017-08-16] MEDS: traMADol HCl 50 MG TAB PO PRN ×2 (10:45→16:38)
[2017-08-16] MEDS: Aspirin 81 mg Enteric Coated Tablet PO SCH (10:46)
[2017-08-16] MEDS: Carvedilol 25 MG TAB PO SCH ×2 (10:47→21:15)
[2017-08-16] MEDS ORDERED: Heparin 1,000 UNITS/ML VIAL ONE (11:11)
[2017-08-16] MEDS: Ondansetron ODT 4 MG TAB PO PRN ×2 (12:38→18:45)
--- NOTE | 2017-08-16 14:20 | CON ---
DATE OF CONSULTATION: 08/16/2017 HISTORY OF PRESENT ILLNESS: Ms. Rodriguez is a 67-year-old white female with ESRD and was admitted for an infected right upper extremity AV graft. She underwent excision of these infected right upper AV graft - she has failed IV antibiotics. She also had a femoral dialysis catheter change. We are being consulted for maintenance hemodialysis. The patient is currently undergoing hemodialysis. I a m at the bedside supervising her dialysis. She is complaining of some postop pain on the right upper extremity. The patient denies any chest pa in or shortness of breath. REVIEW OF SYSTEMS: Positive for all postop pain, no chest pain, no shortness of breath, no syncopal episode, no productive cough, no fever or chills, no dysuria, no urinary frequency, no abdominal pain , no hematochezia, no melena, no hematemesis, no headache, no diplopia. Appetite and energy level is fair. No joint pains. No new skin rash. No sore throat. MEDICATIONS: Currently on Ecotrin 81 mg daily; PhosLo 667 mg p.o. t.i.d.; Coreg 12.5 mg p.o. b.i.d.; Sensipar 30 mg daily; Lexapro 20 mg daily p.r.n.; hydralazine; midodrine 10 mg Friday, Friday, ; MiraLax 17 grams daily; Pravachol 10 mg at bedtime; Restoril 15 at bedtime p.r.n.; Nephro-Mimi 1 tab daily; Ultram 100 mg q.6 p.r.n. - for second line pain. PAST MEDICAL HISTORY: ESRD, on maintenance hemodialysis; bladder cancer, in remission; depression; o steoporosis; dyslipidemia; anxiety; DJD; aortic valve disease; bladder cancer - in remission; chronic hypotension, on midodrine. PAST SURGICAL HISTORY: 1. Status post urostomy placement. 2. Status post AV graft placement with subsequent revision and excision of infected AV graft. 3. Status post cuffed dialysis catheter placement - currently on femoral. 4. Status post aortic valve replacement. 5. Status post cardiac catheterization. 6. Status post CABG. 7. Status post right distal femoral fracture repair. SOCIAL HISTORY: The patient lives in [place], single, originally from [place], lives alone. No chi ldren. Sedentary lifestyle. Currently, no smoking or alcohol intake. No drug abuse. Status post m ultiple blood transfusions. ALLERGIES: CEFTIN, DEMEROL, LIPITOR. TRAUMA: Status post hip fracture. HOSPITALIZATIONS: Please see past medical history. IMMUNIZATIONS: Up to date. FAMILY HISTORY: No family history of ESRD. PHYSICAL EXAMINATION: VITAL SIGNS: Blood pressure is 118/61, heart rate 78, respiratory 16, temperature 98.6, pulse ox 99% . GENERAL: Noted to be awake, alert, comfortable, not in overt distress. SKIN: Adequate turgor. HEENT: She has slightly pale conjunctivae, anicteric sclerae. NECK: No neck mass, no carotid bruits, no JVD. CHEST: No deformities. LUNGS: Clear breath sounds, no wheezing, no crackles. HEART: Normal sinus rhythm. No murmur, no gallops, no rubs. ABDOMEN: Globular, soft, nontender. No masses. Positive for urostomy. EXTREMITIES: No edema, no deformities. Positive for femoral catheter. NEUROLOGIC: Awake, oriented to 3 spheres. Moving all extremities. No tremors. asterixis. No atax ia. LABORATORY: Of 08/16/2017, white count 7.2, hemoglobin 7.7. Sodium 134, potassium 4.3, chloride 99, carbon dioxide 22, BUN 56, creatinine 5.29, glucose 80, calcium 8.6. ASSESSMENT AND PLAN: 1. End-stage renal disease - the patient undergoing dialysis, tolerating said treatment. No change s will be made with her current dialysis regimen. Review of the last Kt/V suggests she is adequately dialyzed. She is undergoing Friday dialysis since she missed her Friday dialysis. Our plan is to resume her on Friday, Friday, and Friday dialysis regimen. Fluid removal only as tolerated. 2. Anemia. Start Epogen 10,000 unit at 7500 units subcutaneously every week. 3. Infected AV graft - nonhealing in spite of continued IV vancomycin. Excision of said AV graft of infected AV graft has been done. Please note she has a new femoral dialysis catheter. I agree with current management.
[2017-08-16] MEDS: Pravastatin Sodium 20 MG TAB PO SCH (21:14)
[2017-08-16] MEDS: Loratadine 10 MG TAB PO SCH (21:16)
[2017-08-17] MEDS: traMADol HCl 50 MG TAB PO PRN (04:59)
[2017-08-17 05:36] LABS: #Basophils 0.1 thou/uL (0.0-0.2); #Eosinphils 0.9 thou/uL (0.0-0.7); #Lymphocytes 1.6 thou/uL (1.20-3.40); #Monocytes 0.5 thou/uL (0.11-0.59); #Neutrophils 3.6 thou/uL (1.40-6.50); %Eosinophils 12.9 % (0.0-10.0); %Lymphocytes 24.4 % (21.0-51.0); %Monocytes 7.6 % (0.0-10.0); %Neutrophils 54.2 % (42.0-75.0); Hemoglobin 8.8 g/dL (12.0-16.0); Mean Corpuscular HGB CONC 30.7 g/dL (32.0-36.0); Mean Corpuscular Hemoglobin 27.6 pg (27.0-31.0); Mean Platelet Volume 7.4 fL (7.4-10.4); Platelet Count 397 thou/uL (130-400); Red Blood Cell (RBC) Count 3.19 mill/uL (4.20-5.40); White Blood Cell (WBC) Count 6.7 thou/uL (4.8-10.8)
[2017-08-17] MEDS: Folic Acid/Vit B Comp W-C PO SCH (07:37)
[2017-08-17] MEDS: Aspirin 81 mg Enteric Coated Tablet PO SCH (07:37)
[2017-08-17] MEDS: Docusate 100 MG CAP PO SCH (07:37)
[2017-08-17] MEDS: Escitalopram Oxalate 20 mg Tablet PO SCH (07:37)
[2017-08-17] MEDS: Carvedilol 25 MG TAB PO SCH (07:37)
[2017-08-17] MEDS: Cinacalcet HCl 30 MG TAB PO SCH (07:37)
[2017-08-17] MEDS: Calcium Acetate 667 MG CAP PO SCH ×2 (07:38→14:56)
[2017-08-17] MEDS: Polyethylene Glycol 3350 17 GM Packet PO SCH (07:38)
[2017-08-17] MEDS: diphenhydrAMINE 25 MG CAP PO PRN ×2 (07:45→14:07)
[2017-08-17] MEDS: Ondansetron ODT 4 MG TAB PO PRN ×2 (09:38→15:41)
[2017-08-17 12:15] VITALS: BP 123/65; TEMP 98
--- NOTE | 2017-08-17 18:18 | PRG ---
DATE OF SERVICE: 08/16/2017 SUBJECTIVE: Clarissa Rodriguez is doing well today. Her dressings dry. Wound Care will change her wound today . She has good capillary refill in her right hand. She has good hand strength. H emoglobin this morning is 7.7, same as yesterday. Base met is stable for her renal failure. OBJECTIVE: LUNGS: Clear to auscultation. CARDIAC: Regular rate and rhythm without murmur or gallop. ABDOMEN: Soft and nontender. ASSESSMENT AND PLAN: Plan to discharge home tomorrow. We will do normal saline wet to dry dressings right arm wound daily after washing the wound with soap and water. Follow up in my office in 2-3 we eks.
[2017-08-18] MEDS ORDERED: Midodrine HCl 5 MG TAB PO SCH (09:00)
== END 2017-08-17 18:30 | disposition home or self-care (01) | DRG 252 ==
LOC: SDC 10:47 → SURG B 17:24
PROVIDERS: ADMIT Specialist; ATTEND Specialist
PROC: 03PY07Z Removal of Autologous Tissue Substitute from Upper Artery, Open Approach (ICD-10-PCS; principal; 2017-08-15)
PROC: 05PY07Z Removal of Autologous Tissue Substitute from Upper Vein, Open Approach (ICD-10-PCS; 2017-08-15)
PROC: 06PY33Z Removal of Infusion Device from Lower Vein, Percutaneous Approach (ICD-10-PCS; 2017-08-15)
PROC: 06HN33Z Insertion of Infusion Device into Left Femoral Vein, Percutaneous Approach (ICD-10-PCS; 2017-08-15)
PROC: 5A1D70Z Performance of Urinary Filtration, Intermittent, Less than 6 Hours Per Day (ICD-10-PCS; 2017-08-16)
DX: T82.7XXA Infection and inflammatory reaction due to other cardiac and vascular devices, implants and grafts, initial encounter (principal); N18.6 End stage renal disease; I13.11 Hypertensive heart and chronic kidney disease without heart failure, with stage 5 chronic kidney disease, or end stage renal disease; Z66 Do not resuscitate; T82.868A Thrombosis due to vascular prosthetic devices, implants and grafts, initial encounter; Y83.1 Surgical operation with implant of artificial internal device as the cause of abnormal reaction of the patient, or of later complication, without mention of misadventure at the time of the procedure; E78.5 Hyperlipidemia, unspecified; K21.9 Gastro-esophageal reflux disease without esophagitis; M81.0 Age-related osteoporosis without current pathological fracture; Z96.0 Presence of urogenital implants; G89.18 Other acute postprocedural pain; F32.9 Major depressive disorder, single episode, unspecified; D63.1 Anemia in chronic kidney disease; M21.70 Unequal limb length (acquired), unspecified site; I25.10 Atherosclerotic heart disease of native coronary artery without angina pectoris; Y92.9 Unspecified place or not applicable; Z90.11 Acquired absence of right breast and nipple; Z90.5 Acquired absence of kidney; Z90.710 Acquired absence of both cervix and uterus; Z87.81 Personal history of (healed) traumatic fracture; Z86.718 Personal history of other venous thrombosis and embolism; Z88.1 Allergy status to other antibiotic agents; Z88.5 Allergy status to narcotic agent; Z91.048 Other nonmedicinal substance allergy status; Z91.09 Other allergy status, other than to drugs and biological substances; Z99.2 Dependence on renal dialysis; Z79.899 Other long term (current) drug therapy; Z85.3 Personal history of malignant neoplasm of breast; Z92.3 Personal history of irradiation; Z95.1 Presence of aortocoronary bypass graft; Z95.2 Presence of prosthetic heart valve; Z82.3 Family history of stroke; Z82.0 Family history of epilepsy and other diseases of the nervous system; Z87.440 Personal history of urinary (tract) infections; Z86.19 Personal history of other infectious and parasitic diseases; Z87.19 Personal history of other diseases of the digestive system
CPT/HCPCS: 36415; 36430; 80048; 85025; 86850; 86900; 86901; A4216; C1752; J0670; J0692; J1642; J1644; J2250; J2370; J2720; J3010; J3370; J7050; P9016; Q0162; Q9967

== ENCOUNTER 2017-09-16 10:26 | Day surgery (SDC) | payer MEDICARE, OTHER ==
--- NOTE | 2017-09-12 14:33 | HP ---
HISTORY OF PRESENT ILLNESS: Clarissa Matthews is a 67-year-old female patient with a complicated d ialysis access. Patient is a DNR. She dialyzes at [facility] Friday, Friday, and Friday. Rene zamorano is accompanied by her sister who is her power of finance attorney. She is followed by Dr. Hassan and Dr. Wing Rucker, his clip loading machine adjuster. The patient is dialyzing using the left femoral vein dialysis catheter . This has intermittent function and they are using Cathflo to hopefully avoid replacing it. She wiggins d a left upper arm fistula placed in [place] and saw when she experienced an aneurysmal hemorrhage re quiring suture ligation with initial attempts to salvage is unsuccessful. Patient on 04/02/2017 had a right arm primary fistula, perforating branch antecubital vein with basilic vein outflow. This fis lizbeth thrombosed. She underwent reexploration leading to a tapered graft placed in the upper arm. Th is became infected and initially treated, but required removal on 08/15/2017. Plan at this time is t o explore left arm, most likely place in a left arm dialysis graft. She has prominent pulsations of her fistula above the antecubital fossa. We will plan to use the inflow with that most likely a ventura t. Possibility of fusion of basilic vein could be performed, pending operative findings. The patien t was living at home and arrives my office in a wheelchair. PAST MEDICAL HISTORY: See recent history and physical dictated 08/07/2017. PHYSICAL EXAMINATION: VITAL SIGNS: Weight 130 pounds, 63 inches, 141/72, heart rate 93. HEENT: Unremarkable. LUNGS: Clear to auscultation. CARDIAC: Regular rate and rhythm without murmur or gallop. ABDOMEN: Soft, nontender. EXTREMITIES: Unremarkable. Right upper arm. Surgical sites well healed. Good circulation of the r ight hand. Good range of motion. Good strength, good capillary refill. Palpable radial pulse. Lef t arm reveals prominent venous inflow upper arm, but occluded fistula. We will plan good hand functi on. ASSESSMENT AND PLAN: Placement of left arm fistula or graft as an outpatient, understands the risks and benefits explained, she consents.
[2017-09-15 11:01] VITALS: BMI 22.1
[2017-09-16 11:48] LABS: Anion Gap 17 mmol/L (10-20); BUN (Urea Nitrogen) 67 mg/dL (9.8-20.1); Calc. Creatinine Clearance 7 mL/min (70-130); Calcium 9.2 mg/dL (7.8-10.44); Carbon Dioxide 24 mmol/L (23-31); Chloride 98 mmol/L (98-107); Estimated GFR-MDRD 6; Glucose 93 mg/dL (80-115); Potassium 5.1 mmol/L (3.5-5.1); Sodium 134 mmol/L (136-145)
[2017-09-16 11:53] LABS: #Basophils 0.1 thou/uL (0.0-0.2); #Eosinphils 0.2 thou/uL (0.0-0.7); #Lymphocytes 1.7 thou/uL (1.20-3.40); #Monocytes 0.6 thou/uL (0.11-0.59); #Neutrophils 7.1 thou/uL (1.40-6.50); %Basophils 0.6 % (0.0-1.0); %Eosinophils 2.3 % (0.0-10.0); %Lymphocytes 17.4 % (21.0-51.0); %Monocytes 6.5 % (0.0-10.0); %Neutrophils 73.2 % (42.0-75.0); Hemoglobin 7.3 g/dL (12.0-16.0); Mean Corpuscular HGB CONC 29.2 g/dL (32.0-36.0); Mean Corpuscular Hemoglobin 26.6 pg (27.0-31.0); Mean Corpuscular Volume 91.2 fL (78.0-98.0); Mean Platelet Volume 7.7 fL (7.4-10.4); Platelet Count 519 thou/uL (130-400); RBC Distribution Width 16.4 % (11.5-14.5); Red Blood Cell (RBC) Count 2.73 mill/uL (4.20-5.40); White Blood Cell (WBC) Count 9.7 thou/uL (4.8-10.8)
[2017-09-16 12:01] LABS: MDiff Complete? YES; Ovalocytes SLIGHT = 2-5 cells (100X) (0-1/hpf); Polychromasia MODERATE = 3-4 cells (100X) (0-2/hpf)
[2017-09-16] MEDS ORDERED: Levofloxacin 500 mg/D5W 100 ml Premix Bag ONE (12:01)
[2017-09-16] MEDS ORDERED: Fentanyl 100 MCG/2 ML VIAL ONE ×2 (12:24→14:11)
[2017-09-16] MEDS ORDERED: Midazolam HCl 2 mg/2 ml Vial ONE ×2 (12:24→14:11)
[2017-09-16] MEDS ORDERED: Bupivacaine HCl 0.5%/Epinephrine 1:200,000/PF 30 ml Vial ONE ×2 (12:34→14:09)
[2017-09-16] MEDS ORDERED: PHENYLEPHRINE-NS 100 MCG/ML 10 ML SYRINGE ONE ×2 (13:41→14:59)
[2017-09-16] MEDS ORDERED: Lidocaine 1% PF 5 ML VIAL ONE (13:41)
[2017-09-16] MEDS ORDERED: Lidocaine 2% 10 ML INJ ONE ×3 (14:09→14:54)
[2017-09-16] MEDS ORDERED: Heparin 5,000 UNITS/ML VIAL ONE (14:09)
[2017-09-16] MEDS ORDERED: Protamine Sulfate 50 MG/5 ML VIAL ONE (14:09)
[2017-09-16] MEDS ORDERED: Sodium Chloride 0.9% 20 ML ONE (14:09)
[2017-09-16] MEDS ORDERED: Heparin 10,000 UNITS/1 ML VIAL ONE (14:10)
[2017-09-16] MEDS ORDERED: Propofol 1,000 MG/100 ML VIAL IV ONE (14:11)
[2017-09-16] MEDS ORDERED: Bupivacaine/Epinephrine 0.25% 30 ML VIAL ONE ×2 (14:47→14:54)
[2017-09-16] MEDS ORDERED: Phenylephrine HCL 10 MG/ML VIAL ONE (15:00)
[2017-09-16] MEDS ORDERED: Morphine 4 MG/ML VIAL ONE (17:15)
[2017-09-16] MEDS ORDERED: traMADol HCl 50 MG TAB ONE (18:15)
[2017-09-16] MEDS ORDERED: Ondansetron HCl/PF 4 MG/2 ML Vial ONE (18:35)
--- NOTE | 2017-09-17 02:28 | OP ---
DATE OF SURGERY: 09/16/2017 PREOPERATIVE DIAGNOSES: End-stage renal disease, exhausted dialysis access right arm with removal of a segment of infected PTFE graft arterial inflow area above the antecubital fossa, malfunction of le ft femoral vein cuffed tunneled hemodialysis catheter, thrombosed dialysis graft, left arm. POSTOPERATIVE DIAGNOSES: End-stage renal disease, exhausted dialysis access right arm with removal o f a segment of infected PTFE graft arterial inflow area above the antecubital fossa, malfunction of l eft femoral vein cuffed tunneled hemodialysis catheter, thrombosed dialysis graft left arm with inade quate axillary vein for dialysis graft, left arm. Infected dialysis graft and stents, left arm. SURGEON: Dr. Trae Morris ANESTHESIA: General, TIVA. Local 0.5% Marcaine with epinephrine, 30 mL, mixed with 2% Xylocaine, 10 mL. Fluoroscopy used. PROCEDURE IN DETAIL: Patient taken to the operating room under left arm regional anesthesia and intr avenous sedation, left upper extremity, axilla, chest, and left groin, and thigh, lower abdomen prepa red with ChloraPrep, draped in routine fashion. Attention was first turned to the left arm. The pat iejorge alberto had had a previous right arm dialysis graft. It was functioning but became infected near the ar terial inflow above the antecubital fossa and despite local wound care, this infection persisted and had to be removed. She had had previous access in the left arm performed elsewhere and had what appe ared to be chronic granulation tissue and a wound above the antecubital fossa over the pulsation in t he dialysis access above the antecubital fossa near the arterial inflow, but thrombosed distally. At tention was then turned to the left axilla where incision was made care not to consume this tissue to the deep fascia and there was a vein present, but it was too small to use for outflow. This wound w as closed and subcutaneous tissues approximated with 3-0 Monocryl, skin with subdermal 4-0 Monocryl a nd DermaGlue applied. No other vein was available in this area. Incision was made just below the cu bital fossa in the area of the palpable dialysis access near the brachial artery. Incision made in s kin and subcutaneous tissue and this structure was dissected free and appreciated to be a prosthetic graft. There was dissected free and the stump near the arterial inflow clamp. It was divided and st ump ligated with continuous to and fro suture of 4-0 Prolene. Graft stripped towards the open wound which was now appreciated to be exposed graft. This excess graft was transected and wound closed by approximately subcutaneous tissue, 3-0 Monocryl, skin with subdermal 4-0 Monocryl and DermaGlue appli ed. Attention was then turned to the graft outflow towards the venous anastomosis and an incision ma de, carried down through skin and subcutaneous tissue and graft dissected free. The graft on the exp osed portion of the arm where it eroded the skin was dissected free, stripped. divided and then the g raft dissected free more into the proximal arm and the subcutaneous tissues. This wound closed with continuous suture of 3-0 Monocryl, skin with subdermal Monocryl and DermaGlue applied. Incision then made over the polar proximal arm over the graft which was dissected free and as dissected free towar ds the mid arm towards the venous outflow anastomosis, appreciated that the graft had multiple stents . As this was dissected free, there was purulent material found around the graft. This was dissecte d free towards the venous outflow, which was thrombosed. The graft and stents were removed requiring ____ the incision and a counter incision. Once this all the prosthetic material was removed, the wo unds were irrigated. Hemostasis gained with the cautery and packed and then the exposed portion of t he graft segment removed by incising the chronically inflamed skin and prosthetic tissue dissected fr ee from around the wound in the graft removed in its entirety along with the stent and these wounds l eft open. Hemostasis gained with cautery. Surgicel applied. Gauze dressing applied. Sterile Gadiel w rap applied. Patient tolerated the procedure well. My gloves and gowns were changed. New instrumen ts obtained and attention turned to the left groin where the defect cuffed tunnel dialysis catheter w as malfunctioned. Local anesthetic infiltrated into skin and subcutaneous tissue about the operative sites. Incision made left groin near where the vein cannulated the femoral vein and graft dissected free, brought into the wound, controlled with a hemostat, transected and then the old portion of the graft removed and the area prepared with ChloraPrep again. A new exit site stab incision made with an 11 blade. Using the tunneling device, the longer femoral vein hemodialysis catheter link catheter was tunneled between the two incisions, placing the fabric cuff beneath the skin and catheter secure d with 2 interrupted sutures of 3-0 nylon and Dermabond. Biopatch sterile dressing applied at the ac cess site. Attention was then turned to the groin. Then, on the transected catheter, J-wire was thr eaded and the catheter removed and the dilator and pull-away sheath placed over the catheter into the femoral vein and dilator and J-wire removed. The new catheter was placed through the pull-away cabral th into the femoral vein and it had some resistance to blood aspiration and thus fluoroscopy was used and noted to have a cane. This was withdrawn out of the wound and straighten fluoroscopically appre ciated in good position and then it flowed well, and it was aspirated of blood, flushed with saline a nd heparinized saline solution 1000 units heparin per mL indicated volume. Subcutaneous tissues appr oximated with 3-0 Monocryl, skin with subdermal 4-0 Monocryl and DermaGlue applied. The patient tole rated the procedure well.
--- NOTE | 2017-09-17 09:34 | RAD ---
FLUORO INHERENT TO SURGERY: HISTORY: Femoral dialysis catheter placement. COMPARISON: None. FINDINGS: Multiple spot images were performed. There appears to be a dialysis catheter projecting over the lef t femoral vein. The tip appears to be at the level of the hepatic IVC. IMPRESSION: Fluoroscopy for surgical use. POS: DATNE
== END 2017-09-16 19:30 | disposition home or self-care (01) ==
LOC: SDC 10:26
PROVIDERS: ATTEND Specialist
PROC: 0J2WXYZ Change Other Device in Lower Extremity Subcutaneous Tissue and Fascia, External Approach (ICD-10-PCS; principal; 2017-09-16)
PROC: 03QY0ZZ Repair Upper Artery, Open Approach (ICD-10-PCS; 2017-09-16)
DX: T82.7XXA Infection and inflammatory reaction due to other cardiac and vascular devices, implants and grafts, initial encounter (principal); T82.868A Thrombosis due to vascular prosthetic devices, implants and grafts, initial encounter; T82.41XA Breakdown (mechanical) of vascular dialysis catheter, initial encounter; I12.0 Hypertensive chronic kidney disease with stage 5 chronic kidney disease or end stage renal disease; N18.6 End stage renal disease; G47.00 Insomnia, unspecified; E78.5 Hyperlipidemia, unspecified; K21.9 Gastro-esophageal reflux disease without esophagitis; M81.0 Age-related osteoporosis without current pathological fracture; F32.9 Major depressive disorder, single episode, unspecified; I25.10 Atherosclerotic heart disease of native coronary artery without angina pectoris; Z79.899 Other long term (current) drug therapy; Z88.1 Allergy status to other antibiotic agents; Z88.5 Allergy status to narcotic agent; Z88.8 Allergy status to other drugs, medicaments and biological substances; Z99.2 Dependence on renal dialysis; Z95.5 Presence of coronary angioplasty implant and graft
CPT/HCPCS: 35903; 36584; 37607; 80048; 85025; 96374; 96375; C1752; A4216; J0670; J1644; J1956; J2001; J2250; J2270; J2370; J2405; J2704; J2720; J3010

== ENCOUNTER 2018-05-05 09:47 | Inpatient (IN) | payer MEDICARE ==
[2018-05-05 11:43] LABS: ALT (SGPT) 11 U/L (8-55); AST (SGOT) 13 U/L (5-34); Albumin 3.4 g/dL (3.4-4.8); Alkaline Phosphatase 298 U/L (40-150); Anion Gap 14 mmol/L (10-20); BUN (Urea Nitrogen) 48 mg/dL (9.8-20.1); Bilirubin, Total 0.3 mg/dL (0.2-1.2); CRP (Inflammatory) 5.41 mg/dL (= or < 0.5); Calc. Creatinine Clearance 0 mL/min (70-130); Calcium 9.1 mg/dL (7.8-10.44); Carbon Dioxide 27 mmol/L (23-31); Chloride 101 mmol/L (98-107); Estimated GFR-MDRD 11; Glucose 85 mg/dL (80-115); Potassium 5.1 mmol/L (3.5-5.1); Protein, Total 7.4 g/dL (6.0-8.3); Sodium 137 mmol/L (136-145)
[2018-05-05 11:56] LABS: #Basophils 0.1 thou/uL (0.0-0.2); #Eosinphils 0.7 thou/uL (0.0-0.7); #Lymphocytes 1.5 thou/uL (1.20-3.40); #Monocytes 0.6 thou/uL (0.11-0.59); #Neutrophils 5.5 thou/uL (1.40-6.50); %Basophils 1.3 % (0.0-1.0); %Eosinophils 8.7 % (0.0-10.0); %Lymphocytes 17.5 % (21.0-51.0); %Monocytes 7.2 % (0.0-10.0); %Neutrophils 65.4 % (42.0-75.0); Hemoglobin 10.2 g/dL (12.0-16.0); Hypochromia SLIGHT = 6-15 cells (100X) (0-5/hpf); MDiff Complete? YES; Mean Corpuscular HGB CONC 29.2 g/dL (32.0-36.0); Mean Corpuscular Hemoglobin 27.5 pg (27.0-31.0); Mean Corpuscular Volume 94.3 fL (78.0-98.0); Mean Platelet Volume 7.5 fL (7.4-10.4); Ovalocytes SLIGHT = 2-5 cells (100X) (0-1/hpf); Platelet Count 415 thou/uL (130-400); Platelet Morphology Comment Appears Increased; Polychromasia SLIGHT = 2-3 cells (100X) (0-2/hpf); Red Blood Cell (RBC) Count 3.72 mill/uL (4.20-5.40); White Blood Cell (WBC) Count 8.4 thou/uL (4.8-10.8)
[2018-05-05] MEDS ORDERED: Acetaminophen 500 MG TAB PO PRN (13:24)
[2018-05-05] MEDS ORDERED: Carvedilol 6.25 MG TAB PO SCH ×2 (13:30→21:00)
[2018-05-05] MEDS ORDERED: Lidocaine 1% (PF) 30 ML VIAL ONE (13:50)
[2018-05-05] MEDS ORDERED: Neomycin-Polymyxin 1 ML AMP ONE (13:50)
[2018-05-05] MEDS ORDERED: Lidocaine 1% PF 5 ML VIAL ONE (14:30)
[2018-05-05] MEDS ORDERED: Ondansetron PF 4 MG/2 ML Vial ONE (14:30)
[2018-05-05] MEDS ORDERED: PHENYLEPHRINE-NS 100 MCG/ML 10 ML SYRINGE ONE (14:30)
[2018-05-05] MEDS ORDERED: ePHEDrine 50 MG/ML VIAL ONE (14:30)
[2018-05-05] MEDS ORDERED: PROPOFOL 200 MG/20 ML VIAL ONE (14:30)
[2018-05-05] MEDS ORDERED: Vancomycin HCl 1 GM in Premix Bag 1 BAG IVPB SCH (15:00)
[2018-05-05] MEDS ORDERED: Fentanyl 100 MCG/2 ML VIAL ONE (15:26)
[2018-05-05] MEDS ORDERED: TEMAZEPAM 7.5 MG PO PRN (16:38)
[2018-05-05] MEDS ORDERED: Promethazine HCl 25 MG/ML VIAL SLOW IVP PRN (16:41)
[2018-05-05] MEDS ORDERED: Ondansetron HCl/PF 4 MG/2 ML Vial IVP PRN (16:41)
[2018-05-05] MEDS ORDERED: Promethazine HCl 25 MG/ML VIAL IM PRN (16:41)
--- NOTE | 2018-05-05 16:45 | RAD ---
PORTABLE PER HOUR FLUOROSCOPY X-RAY: HISTORY: Hardware removal of right femur. COMPARISON: None. FINDINGS: Single spot fluoroscopic images were obtained. No hardware is seen. IMPRESSION: Fluoroscopy for surgical use. POS: JOY
[2018-05-05] MEDS ORDERED: Calcium Acetate 667 MG CAP PO SCH ×2 (17:00→21:00)
[2018-05-05] MEDS: Acetaminophen 500 MG TAB PO PRN (17:51)
[2018-05-05] MEDS: Sodium Chloride 0.9% 1,000 ML IV SCH (17:52)
[2018-05-05] MEDS: Simvastatin 20 MG TAB PO SCH (20:44)
[2018-05-05] MEDS: Loratadine 10 MG TAB PO SCH (20:44)
[2018-05-05] MEDS: traMADol HCl 50 MG TAB PO PRN (20:44)
[2018-05-05] MEDS ORDERED: Loratadine 10 MG TAB PO SCH (21:00)
[2018-05-05] MEDS ORDERED: Pravastatin Sodium 20 MG TAB PO SCH (21:00)
[2018-05-05] MEDS ORDERED: Temazepam 15 MG CAP PO PRN (21:00)
--- NOTE | 2018-05-06 00:03 | OP ---
DATE OF PROCEDURE: 05/05/2018 PREOPERATIVE DIAGNOSIS: Abscess, right lateral knee. POSTOPERATIVE DIAGNOSES: 1. Abscess, right lateral knee. 2. Infected hardware, right lateral femur. PRINCIPAL PROCEDURE: 1. Removal of hardware (deep implant, right femur). 2. Irrigation and debridement of right lateral distal thigh (skin, subcutaneous tissue, muscle, and bone). ANESTHESIA: General. FINANCIAL WRITER: Aishwarya Arroyo PA-C TOURNIQUET TIME: Zero. ESTIMATED BLOOD LOSS: 50 mL. SPECIMEN: 1. Swab x2, sent for Gram stain, culture, and sensitivity. 2. Explanted lateral femoral condylar plate and screws discarded. COMPLICATIONS: None. DRAINS: None. OUTCOME: Successful removal of hardware and irrigation and debridement of wound. INDICATIONS: The patient is a 67-year-old lady with a long history of orthopedic fractures as well as history of chronic renal disease and dialysis. She has a past history of MRSA infections as well. Approximately 1 month ago, she developed lateral skin irritation, thought to be secondary to a knee brace that subsequently went on to develop a small abscess that has been draining for the last month. Upon presentation to my office today, she was found to have this draining sinus at the lateral knee basically following the scar from a prior surgery where a lateral condylar plate was placed in 2016. Given the purulent material present and the fact that it had been going on for a month, we opted to proceed with irrigation and debridement of this wound and possible hardware removal, is felt to be involved with the infection. Informed consent has been obtained. I believe all questions have been answered. DESCRIPTION OF PROCEDURE: The patient was brought to the operating room and a time-out performed followed by induction of general anesthesia. Next, the patient was positioned supine on the OR table and a sterile prep and drape were performed on the right lower extremity. The wound itself was found to be approximately 1 cm round with some purulent material coming from the wound. As such, the skin was extended proximally and distally following the scar from her prior surgery. After the skin was further opened, dissection was carried down deeper, and at this point, the source of the infection could be seen coming from deep to a fascial layer over riding the femoral hardware. This fascial layer was incised in line with the skin incision and a pocket of the abscess was entered surrounding this distal femoral hardware. This was initially provisionally irrigated with Pulsavac and then attention was placed at hardware removal. The 6 distal screws were removed from this 1 distal wound, and then using separate instrumentation, 2 small stab wounds were placed proximally removing 2 more proximal screws. At this point, the plate was removed without difficulty. The wound was then further inspected using a rongeur and a scalpel. Some marginally viable tissue was excised around the skin edge fascia down to the level of bone and then a curette was used to curette out the screw holes from the distal femur. No where did there appear to be violation of the joint capsule and the knee demonstrated no effusion. Next, the leg was irrigated with 5 L of normal saline using Pulsavac. At the completion of this, the 2 small proximal wounds were closed with ana maria and the distal wound left open and packed with saline soaked gauze for eventual change control specialist to a wound VAC. The knee was then placed with a final dressing of gauze, Webril, and Gadiel wrap, and then in the knee immobilizer. She was then transferred to recovery room in stable condition. There were no complications and she tolerated the procedure well. Job ID: [id number]
[2018-05-06] MEDS: Acetaminophen 500 MG TAB PO PRN ×2 (00:16→06:18)
[2018-05-06] MEDS ORDERED: Temazepam 15 MG CAP PO SCH ×2 (02:30→21:00)
[2018-05-06] MEDS: traMADol HCl 50 MG TAB PO PRN ×3 (02:57→19:56)
[2018-05-06 05:33] LABS: #Basophils 0.1 thou/uL (0.0-0.2); #Eosinphils 0.7 thou/uL (0.0-0.7); #Lymphocytes 1.2 thou/uL (1.20-3.40); #Monocytes 0.6 thou/uL (0.11-0.59); #Neutrophils 6.1 thou/uL (1.40-6.50); %Eosinophils 7.7 % (0.0-10.0); %Lymphocytes 14.3 % (21.0-51.0); %Monocytes 7.3 % (0.0-10.0); %Neutrophils 69.7 % (42.0-75.0); Hemoglobin 8.9 g/dL (12.0-16.0); Mean Corpuscular HGB CONC 28.8 g/dL (32.0-36.0); Mean Corpuscular Hemoglobin 27.2 pg (27.0-31.0); Mean Corpuscular Volume 94.5 fL (78.0-98.0); Mean Platelet Volume 7.8 fL (7.4-10.4); Platelet Count 345 thou/uL (130-400); RBC Distribution Width 18.7 % (11.5-14.5); Red Blood Cell (RBC) Count 3.29 mill/uL (4.20-5.40); White Blood Cell (WBC) Count 8.7 thou/uL (4.8-10.8)
[2018-05-06 05:49] LABS: Anion Gap 17 mmol/L (10-20); BUN (Urea Nitrogen) 56 mg/dL (9.8-20.1); Calc. Creatinine Clearance 0 mL/min (70-130); Calcium 8.7 mg/dL (7.8-10.44); Carbon Dioxide 21 mmol/L (23-31); Chloride 101 mmol/L (98-107); Estimated GFR-MDRD 10; Glucose 82 mg/dL (80-115); Potassium 5.3 mmol/L (3.5-5.1); Sodium 134 mmol/L (136-145)
[2018-05-06] MEDS: Sodium Chloride 0.9% 1,000 ML IV SCH ×2 (06:17→13:17)
--- NOTE | 2018-05-06 07:59 | CON ---
DATE OF CONSULTATION: REASON FOR CONSULTATION: Medical management. HISTORY OF PRESENT ILLNESS: This patient is a 67-year-old female with a number of serious chronic medical problems. 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 The patient has had some complications and necessary revisions of her dialysis shunts as well. The patient had a prior intra-articular fracture of the right distal femur requiring ORIF. She subsequently had infection of this area and outpatient cultures are growing MRSA. The patient was admitted on this occasion for debridement of the infected area and removal of the hardware. She is currently postop. She is on vancomycin, has been seen already by Infectious Disease. The patient currently is reporting some pain. The patient has just arrived from recovery. She is somewhat tearful at times relating it to pain. PAST MEDICAL HISTORY: Notable for the end-stage renal disease secondary to congenital kidney disease with some type of obstructive features requiring a nephrectomy in childhood. She has a history of breast cancer requiring mastectomy and radiation, GERD, insomnia, hyperlipidemia, osteoporosis, vertigo, depression, coronary artery disease, anemia, allergic rhinitis. PAST SURGICAL HISTORY: She has a history of the right mastectomy, CABG, nephrectomy, partial hysterectomy to avoid due to high risk because of her renal disease. She has had a dialysis graft with multiple revisions, currently with a left groin catheter. She had a urostomy tube at age 10. She has an ileostomy, aortic valve repair in 2002, right knee surgery previously for the ORIF. She had an I and D of the knee previously due to septic and she has had a cardiac ablation for atrial fibrillation. FAMILY HISTORY: Mother had Parkinson disease. Father had a CVA. SOCIAL HISTORY: The patient is a nonsmoker, nondrinker, nondrug user. ALLERGIES: ATORVASTATIN, CEFUROXIME, MEPERIDINE, NITROFURANTOIN. HOME MEDICATIONS: Include: 1. B complex. 2. Nephro-Mimi one p.o. daily. 3. Acetaminophen p.r.n. 4. Escitalopram 20 mg daily. 5. Carvedilol 12.5 daily. 6. Calcium 667 p.o. t.i.d. 7. Aspirin 81 mg daily. 8. Coreg 12.5 b.i.d. 9. Claritin 10 mg at bedtime. 10. Docusate 100 mg daily. 11. Cinacalcet 30 mg daily. 12. Restoril 7.5 mg at bedtime p.r.n. 13. Pravastatin 10 mg at bedtime. REVIEW OF SYSTEMS: Not obtained given the patient is still somewhat under the influence of anesthesia. However, the patient denies any specific other complaints in talking to her sister, however, she is concerned that the patient's mental well-being regarding the chronic and recurrent nature of her medical diseases and recurrent surgeries. PHYSICAL EXAMINATION: VITAL SIGNS: Temperature 97.5, pulse 63, respirations 16, O2 saturation 96% on room air, and blood pressure 108/63. GENERAL APPEARANCE: Age-appropriate female, in no distress, although she is a little bit emotionally distraught. She will frequently say, "I'm in pain and cry actual tears," and then can be distracted fairly quickly, but then will do it again seconds later. HEENT: PERRL. Slightly dry oral mucosa. No OP lesions. NECK: Supple and symmetric without lymphadenopathy, JVD, or bruits. HEART: Regular with a 2/6 murmur at the right upper sternal border. LUNGS: Clear to auscultation bilaterally. ABDOMEN: Soft, nontender, nondistended. Right lower quadrant ileostomy. No masses. No guarding. EXTREMITIES: Right knee is in a postop brace. She has good bilateral peripheral pulses. NEUROLOGIC: The patient appears to be generally cognitively intact. PSYCHIATRIC: Patient has a bit of a depressed affect with frequent crying. LABORATORY DATA: White count 8.4, hemoglobin 10.2, platelets 415. Sodium 137, potassium 5.1, chloride 101, BUN is 48, creatinine is 4.07, calcium 9.1, AST is 13, ALT is 11, alkaline phosphatase 298. CRP is 5.41. IMPRESSION AND PLAN: 1. 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 The patient is postop and currently on vancomycin. Infectious Disease has been consulted and will follow their recommendations for antibiosis. 2. End-stage renal disease. Nephrology consulted. The patient will continue with dialysis. 3. Situational depression. We will continue with her usual antidepressant medication regimen from home. We will ask Palliative Care to see her primarily for assistance with coping with the chronic and ongoing issues that the patient unfortunately has to bear. 4. History of coronary artery disease. Again, continuing her home medication regimen including aspirin and carvedilol. 5. Hyperlipidemia. Continue with Pravachol. 6. Postoperative pain. We will add oral tramadol. The patient has had some relative hypotension limiting the interventions for pain. Job ID: [id number]
[2018-05-06] MEDS ORDERED: Sterile Water 10 ML VIAL IVP SCH (08:22)
[2018-05-06] MEDS ORDERED: Activase 2 MG VIAL CATH SCH (08:22)
[2018-05-06] MEDS ORDERED: Carvedilol 6.25 MG TAB PO SCH (09:00)
[2018-05-06] MEDS ORDERED: Folic Acid/Vit B Comp W-C PO SCH (09:00)
[2018-05-06] MEDS ORDERED: Docusate 100 MG CAP PO SCH (09:00)
[2018-05-06] MEDS ORDERED: Cinacalcet HCl 30 MG TAB PO SCH (09:00)
[2018-05-06] MEDS ORDERED: Aspirin 81 mg Enteric Coated Tablet PO SCH (09:00)
[2018-05-06] MEDS ORDERED: Escitalopram Oxalate 20 mg Tablet PO SCH (09:00)
[2018-05-06] MEDS: Escitalopram Oxalate 20 mg Tablet PO SCH (09:12)
[2018-05-06] MEDS: Folic Acid/Vit B Comp W-C PO SCH (09:12)
[2018-05-06] MEDS: Carvedilol 6.25 MG TAB PO SCH ×2 (09:12→19:54)
[2018-05-06] MEDS: Cinacalcet HCl 30 MG TAB PO SCH (09:12)
[2018-05-06] MEDS: Calcium Acetate 667 MG CAP PO SCH ×3 (09:12→17:16)
[2018-05-06] MEDS: Docusate 100 MG CAP PO SCH (09:13)
[2018-05-06] MEDS: Aspirin 81 mg Enteric Coated Tablet PO SCH (09:13)
[2018-05-06] MEDS ORDERED: Fentanyl 100 MCG/2 ML VIAL SLOW IVP PRN (09:33)
--- NOTE | 2018-05-06 10:33 | CON ---
DATE OF CONSULTATION: HISTORY OF PRESENT ILLNESS: Ms. Rodriguez is a 67-year-old white female with known history of ESRD - on maintenance hemodialysis and admitted for abscess of the right lateral knee. The abscess has been treated for the last 2 weeks with IV vancomycin, but remained unimproved. She was seen by her surgeon and was diagnosed to have an abscess secondary to a most likely infected hardware at the right lateral femur. Removal of the hardware was done and I and D of the right lateral distal thigh was done. We are following the patient for her maintenance hemodialysis. I am currently at the bedside supervising her dialysis. No other new complaints today. No chest pain or shortness of breath. REVIEW OF SYSTEMS: Positive for low-grade fever. Positive for nonhealing wound right leg. No chest pain. No shortness of breath. No nausea. No vomiting. No diarrhea. Appetite and energy level are fair. No abdominal pain. No gross hematuria. No dysuria. No urinary frequency. No headache. Positive for insomnia. Positive for anxiety. MEDICATIONS: 1. Ecotrin 81 mg daily. 2. PhosLo 667 mg one tablet t.i.d. with meals. 3. Coreg 12.5 mg tablet daily. 4. Sensipar 30 mg daily. 5. Colace 100 mg daily. 6. Lexapro 20 mg once a day. 7. Simvastatin 10 mg at bedtime. 8. Restoril 7.5 mg at bedtime p.r.n. 9. Ultram 50 mg q.6 p.r.n. PAST MEDICAL HISTORY: The patient has ESRD - maintenance hemodialysis Friday, Friday, Friday; dyslipidemia; history of anxiety; DJD; aortic valve disease; bladder cancer, in remission; chronic hypotension; and depression. PAST SURGICAL HISTORY: Status post urostomy placement, status post AV graft placement with subsequent revision, status post cuffed dialysis catheter - currently on femoral vein, status post aortic valve replacement, status post cardiac cath, status post CABG, and status post right distal femoral fracture repair. SOCIAL HISTORY: The patient lives in [place], single, originally from [place]. Lives alone. No children. Sedentary lifestyle. Status post blood transfusion. No smoking. No alcohol intake. No IV drug abuse. ALLERGIES: CEFTIN, DEMEROL, AND LIPITOR. TRAUMA: Status post hip fracture. HOSPITALIZATION: Please see past medical history. IMMUNIZATION: Up-to-date. FAMILY HISTORY: No family history of ESRD. PHYSICAL EXAMINATION: VITAL SIGNS: Blood pressure is noted at 128/65, heart rate 90, respiratory rate 18, temperature 98.2, and pulse ox 95%. GENERAL: The patient is awake, alert, and comfortable, not in overt distress. SKIN: Adequate turgor. HEENT: She has a slightly pale conjunctivae. Anicteric sclerae. NECK: No neck mass. No carotid bruits. No JVD. CHEST: No deformities. LUNGS: Clear breath sounds. HEART: Normal sinus rhythm. No murmur. No gallops. No rubs. ABDOMEN: Globular, soft, and nontender. No masses. EXTREMITIES: No edema. No deformities. LABORATORY DATA: Laboratories of May 06, 2018; white count 8.7, hemoglobin 8.9. Sodium 134, potassium 5.3, chloride 101, carbon dioxide 21, BUN 56, creatinine 4.42. Bacteria culture of the right knee, pending. ASSESSMENT AND PLAN: 1. Infected right leg prosthesis - surgical removal of the hardware was done. The patient has been on IV vancomycin in the past. I would suggest we continue the IV vancomycin due to previous culture of the wound showing methicillin-resistant Staphylococcus aureus. Consider ID consultation. 2. End-stage renal disease, stable. We will continue current hemodialysis regimen. Fluid removal only as tolerated. 3. Anemia. Continuing Epogen - 7500 units subcu q.week. 4. Decreased blood flow with dialysis catheter. Activase was applied. Agree with current management. Job ID: [id number]
[2018-05-06 12:31] LABS: HBSAg Index 0.28 S/CO (0-0.99); Hep B Surf AB Non-Reactive (NonReactive); Hep B Surf Ag Non-Reactive S/CO (NonReactive)
--- NOTE | 2018-05-06 13:46 | RAD ---
PORTABLE PER HOUR FLUOROSCOPY X-RAY: HISTORY: Hardware removal of right femur. COMPARISON: None. FINDINGS: Single spot fluoroscopic images were obtained. No hardware is seen. IMPRESSION: Fluoroscopy for surgical use.
[2018-05-06] MEDS ORDERED: Bisacodyl 5 MG TAB PO PRN (14:32)
--- NOTE | 2018-05-06 14:35 | PDOC.PN ---
- Subjective Encounter Start Date: 05/06/18 Encounter Start Time: 14:33 Subjective: seen and examined. wants something to help sleep at night.has seroius anxie -: pain bearable for now.no N/V - Objective MAR Reviewed: Yes Vital Signs & Weight: Vital Signs (12 hours) Temp Pulse Resp BP BP Pulse Ox 05/06/18 11:26 97.8 F 80 18 167/99 H 91 L 05/06/18 09:12 143/70 H 91 L 05/06/18 04:00 98.2 F 90 18 128/65 95 Weight Weight 5 lb 3 oz I&O: 05/05/18 05/06/18 05/07/18 06:59 06:59 06:59 Intake Total 1900 Output Total 400 Balance 1500 Result Diagrams: 05/06/18 05:06 05/06/18 05:06 Additional Labs: Microbiology 04/28/18 12:17 Knee Bacterial Culture - Final Methicillin resistant S.aureus 04/08/17 19:54 Stool - Soft C. difficile GDH Antigen & Toxins - Final 04/08/17 19:54 Stool - Soft Clostridium difficile Toxin A&B PCR - Final 04/08/17 19:54 Stool Stool Lactoferrin - Final 04/08/17 19:54 Stool Stool Culture - Final 04/08/17 19:54 Stool Escherichia coli 0157 Culture - Final 04/08/17 19:54 Stool Campylobacter Antigen Assay - Final 04/08/17 19:54 Stool Shiga Toxin Test - Final 04/06/17 03:18 Venous blood - Left Foot Blood Culture - Final NO GROWTH IN 5 DAYS 04/06/17 03:18 Venous blood - Left Foot Blood Culture - Final NO GROWTH IN 5 DAYS 04/04/17 20:55 Venous blood - Left Leg Blood Culture - Final Methicillin resistant S.aureus 04/04/17 20:46 Venous blood - Left Foot Blood Culture - Final Methicillin resistant S.aureus 04/04/17 16:15 Arm - Left Bacterial Culture - Final Methicillin resistant S.aureus 04/04/17 15:23 Urine Suprapubic catheter Urine Culture - Final Escherichia coli 05/05/18 16:03 Knee - Right Bacterial Culture - Preliminary 05/05/18 15:48 Knee - E swab Bacterial Culture - Preliminary Phys Exam - Physical Examination Constitutional: NAD anxious ,tearful HEENT: PERRLA, moist MMs, sclera anicteric, oral pharynx no lesions Neck: no nodes, no JVD, supple, full ROM Respiratory: no wheezing, no rales, no rhonchi, clear to auscultation bilateral Cardiovascular: RRR, no significant murmur Gastrointestinal: soft, non-tender, no distention, positive bowel sounds Musculoskeletal: no edema, pulses present Neurological: non-focal, normal sensation, moves all 4 limbs Skin: no rash Dx/Plan (1) Infected hardware in right leg Code(s): T84.7XXA - INFECT/INFLM REACT DUE TO OTH INT ORTH PROSTH DEV/GRFT, INIT Status: Acute Comment: S/P removal.MRSA Positive.on vancomycin (2) Anemia in chronic kidney disease Code(s): N18.9 - CHRONIC KIDNEY DISEASE, UNSPECIFIED; D63.1 - ANEMIA IN CHRONIC KIDNEY DISEASE Status: Chronic Qualifiers: Comment: (3) Anxiety and depression Code(s): F41.9 - ANXIETY DISORDER, UNSPECIFIED; F32.9 - MAJOR DEPRESSIVE DISORDER, SINGLE EPISODE, UNSPECIFIED Status: Chronic Comment: (4) CAD (coronary artery disease) Code(s): I25.10 - ATHSCL HEART DISEASE OF [place] CORONARY ARTERY W/O ANG PCTRS Status: Chronic (5) ESRD (end stage renal disease) on dialysis Code(s): N18.6 - END STAGE RENAL DISEASE; Z99.2 - DEPENDENCE ON RENAL DIALYSIS Status: Chronic Comment: Maintenance HD (6) Hypertension Code(s): I10 - ESSENTIAL (PRIMARY) HYPERTENSION Status: Chronic Qualifiers: (7) Secondary hyperparathyroidism of renal origin Code(s): N25.81 - SECONDARY HYPERPARATHYROIDISM OF RENAL ORIGIN Status: Chronic - Plan PT/OT, DVT proph w/SCDs cont IV ABx. follow final Cx results -: Hd stable. home meds as below. -: am labs -: Im team will follow * . Review of Systems - Review of Systems Constitutional: weakness, malaise. negative: fever, chills, sweats, other ENT: negative: Ear Pain, Ear Discharge, Nose Pain, Nose Discharge, Nose Congestion, Mouth Pain, Mouth Swelling, Throat Pain, Throat Swelling, Other Respiratory: negative: Cough, Dry, Shortness of Breath, Hemoptysis, SOB with Excertion, Pleuritic Pain, Sputum, Wheezing Cardiovascular: negative: chest pain, palpitations, orthopnea, paroxysmal nocturnal dyspnea, edema, light headedness, other Gastrointestinal: negative: Nausea, Vomiting, Abdominal Pain, Diarrhea, Constipation, Melena, Hematochezia, Other Genitourinary: negative: Dysuria, Frequency, Incontinence, Hematuria, Retention , Other Musculoskeletal: negative: Neck Pain, Shoulder Pain, Arm Pain, Back Pain, Hand Pain, Leg Pain, Foot Pain, Other Skin: negative: Rash, Lesions, Ryley, Bruising, Other - Medications/Allergies Allergies/Adverse Reactions: Allergies Allergy/AdvReac Type Severity Reaction Status Date / Time atorvastatin calcium Allergy Intermediate Rash Verified 09/15/17 10:59 [From Lipitor] cefuroxime axetil Allergy Intermediate Rash Verified 09/15/17 10:59 [From Ceftin] meperidine HCl [From Demerol] Allergy Intermediate SHAKING Verified 09/15/17 10: 59 nitrofurantoin Allergy Intermediate NAUSE Verified 09/15/17 10:59 [From Macrodantin] Medications: Current Medications Acetaminophen (Tylenol) 1,000 mg PO Q6H PRN PRN Reason: Moderate to Severe Pain (6-10) Last Admin: 05/06/18 06:18 Dose: 1,000 mg Alteplase, Recombinant (Cathflo) 4 mg CATH [facility] Stop: 05/06/18 15:00 Aspirin (Ecotrin) 81 mg PO DAILY [facility] Last Admin: 05/06/18 09:13 Dose: 81 mg Bisacodyl (Dulcolax) 10 mg PO DAILYPRN PRN PRN Reason: Constipation Calcium Acetate (Phoslo) 667 mg PO TID-[facility] Last Admin: 05/06/18 11:07 Dose: 667 mg Carvedilol (Coreg) 12.5 mg PO DAILY [facility] Last Admin: 05/06/18 09:12 Dose: 12.5 mg Carvedilol (Coreg) 12.5 mg PO [id number] [facility] Cinacalcet (Sensipar) 30 mg PO DAILY [facility] Last Admin: 05/06/18 09:12 Dose: 30 mg Docusate Sodium (Colace) 100 mg PO DAILY [facility] Last Admin: 05/06/18 09:13 Dose: 100 mg Epoetin Billy (Procrit) 7,500 units SC Q7D [facility] Escitalopram Oxalate (Lexapro) 20 mg PO DAILY [facility] Last Admin: 05/06/18 09:12 Dose: 20 mg Fentanyl (Sublimaze) 25 mcg SLOW IVP ONE PRN PRN Reason: Pain Stop: 05/06/18 23:59 Last Admin: 05/06/18 11:06 Dose: 25 mcg Sodium Chloride (Normal Saline 0.9%) 1,000 mls @ 75 mls/hr IV .[id number] [facility] Last Admin: 05/06/18 13:17 Dose: Not Given Loratadine (Claritin) 10 mg PO HS [facility] Last Admin: 05/05/18 20:44 Dose: 10 mg Simvastatin (Zocor) 10 mg PO HS [facility] Last Admin: 05/05/18 20:44 Dose: 10 mg Sodium Chloride (Flush - Normal Saline) 10 ml IVF PRN PRN PRN Reason: Saline Flush Sterile Water (Water For Injection) 10 ml IVP ONE [facility] Stop: 05/06/18 15:00 Temazepam (Restoril) 15 mg PO HS PRN PRN Reason: Insomnia Tramadol HCl (Ultram) 50 mg PO Q6H PRN PRN Reason: Mild-Moderate Pain (1-5) Last Admin: 05/06/18 09:09 Dose: 50 mg Vitamin B Complex/Vit C/Folic Acid (Nephro-Mimi Tablet) 1 tab PO DAILY [facility] Last Admin: 05/06/18 09:12 Dose: 1 tab
[2018-05-06] MEDS: Epoetin (ESRD) 20,000 UNITS/ML SC SCH (17:16)
[2018-05-06] MEDS ORDERED: Vancomycin HCl 1 GM in Sodium Chloride 0.9% 250 ML 300 ML IVPB SCH (18:30)
--- NOTE | 2018-05-06 18:38 | EKG ---
Test Reason : PREOP Blood Pressure : / mmHG Vent. Rate : 077 BPM Atrial Rate : 077 BPM P-R Int : 220 ms QRS Dur : 074 ms QT Int : 394 ms P-R-T Axes : 066 044 059 degrees QTc Int : 445 ms Sinus rhythm with 1st degree A-V block Anteroseptal infarct (cited on or before 05-MAR-2014) Abnormal ECG When compared with ECG of 19-JUN-2017 16:52, Premature atrial complexes are no longer Present CA interval has increased Confirmed by DR. Zachariah NGUYỄN ([id number]) on 05/06/2018 6:37:33 PM Referred By: ANGELINA Confirmed By:DR. Zachariah NGUYỄN
[2018-05-06] MEDS ORDERED: Vancomycin HCl 1 GM in Premix Bag 1 BAG IVPB SCH ×2 (19:00→22:15)
[2018-05-06] MEDS: Simvastatin 20 MG TAB PO SCH (19:52)
[2018-05-06] MEDS: Loratadine 10 MG TAB PO SCH (19:54)
[2018-05-06] MEDS: Ondansetron PF 4 MG/2 ML Vial SLOW IVP PRN (20:01)
[2018-05-06] MEDS: Meropenem 500 MG in Sodium Chloride 0.9% 100 ML IVPB SCH (21:21)
[2018-05-06 21:43] VITALS: BMI 22.4
[2018-05-06] MEDS ORDERED: Vancomycin Sliding Scale 1 EACH FS ONE (22:15)
[2018-05-06] MEDS ORDERED: HOLD VANCOMYCIN FOR LEVEL >20 FS SCH (22:15)
[2018-05-06] MEDS ORDERED: Vancomycin HCl 500 MG in Sodium Chloride 0.9% 100 ML IVPB SCH (22:15)
[2018-05-06] MEDS ORDERED: Vancomycin HCl 250 MG in Sodium Chloride 0.9% 100 ML IVPB SCH (22:15)
[2018-05-06] MEDS ORDERED: Vancomycin HCl 750 MG in Sodium Chloride 0.9% 250 ML 250 ML IVPB SCH (22:15)
[2018-05-06] MEDS: Temazepam 15 MG CAP PO PRN (22:45)
--- NOTE | 2018-05-07 01:06 | CON ---
DATE OF CONSULTATION: 05/06/2018 REASON FOR CONSULTATION: Right tibial wound with involvement of the hardware. 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 In March 2017, she presented with dehiscence of the left upper extremity AV fistula site associated with MRSA bacteremia. Of note, the patient has had multiple dialysis access placements and various complications with different types of access in the past and currently she has a left femoral tunneled catheter, which is the last successful access that has been placed. About 3 years before, she fractured right femoral after accidental fall at local business and at that time, Dr. Espinal put a fixation plate in the femoral area and she also had a septic arthritis treated. In October 2016, Dr. Herron treated her right proximal femur fracture and she had a bipolar hemiarthroplasty completed and now she developed a wound to the lower right lateral knee with infected hardware in the right lateral femur. Hardware was removed by Dr. Nugent, this included six distal screws and two more proximal screws removed and the plate removed. Some skin edge fascia was removed because of poor viability and some screw holes were curetted near the distal femur. On inspecting the area, there was no evidence that there was violation of the joint capsule. Currently, Ms. Rodriguez is feeling nauseated. She denies headaches. No change in visual symptoms, sore throat, odynophagia, or dysphagia. No shortness of breath or chest pain. No abdominal pain. She does not have urinary output. She has [id number] pain in the right thigh. Operative site includes breast cancer in remission, chronic lymphedema left upper extremity, urinary tract congenital abnormalities, which ended up in an ileal conduit and then eventually development of end-stage renal disease. Multiple dialysis access placements and complications related to those, now she has been dialyzed through a tunneled catheter in the left thigh. Coronary artery disease with prior MN. She had a bypass graft surgery and aortic valve replacement. PAST SURGICAL HISTORY: Includes also right hemiarthroplasty and right distal hip fracture fixation. ALLERGIES: ATORVASTATIN, CEFEPIME, MEPERIDINE AND ZOCOR WITH RASHES. FAMILY HISTORY: Noncontributory. CURRENT MEDICATIONS: Include Tylenol, Ecotrin, Dulcolax, PhosLo, Coreg, Sensipar, Colace, Procrit, Lexapro, Sublimaze, Claritin, Zocor, Restoril, Ultram. PHYSICAL EXAMINATION: VITAL SIGNS: Temperature max 98.2, blood pressure 150/70, pulse 83, respirations 18, O2 saturation 92% to 95%. SKIN: Exam shows the operative site of the right lateral knee femur area with a fresh operative wound. The margins appear unremarkable. The patient has a tunneled hemodialysis catheter in the left femoral area which appears well. She has a peripheral IV access in the left forearm, which appears infiltrated. No lymphadenopathy. HEENT: Ocular movements are conjugate. Sclerae white. Conjunctivae are pale. Pupils are equal and reactive. Oral cavity moist. Numerous teeth in place with some decay. NECK: Supple. No jugular vein distention. LUNGS: Symmetric clear breath sounds. HEART: S1 and S2. Regular rate with a soft aortic murmur. ABDOMEN: Soft, not distended or tender. Her bladder is not distended. EXTREMITIES: She is able to move her extremities with limitations imposed by the right lower extremity operative process. NEUROLOGIC: Cognitive function appears to be well. She appears to be depressed , tearful. LABORATORY DATA: White cell count is 8.4 and 8.7, hemoglobin 8.9, MCV 94, platelets 345 with 69% neutrophils. Sodium 134, creatinine 4.42. Liver profile normal. Alkaline phosphatase 298. CRP 5.41, albumin 3.4. Microbiology, we have pending Gram stain and cultures from the site. ASSESSMENT: Wound, lateral aspect of the right distal femur site with involvement of hardware in the setting of end-stage renal disease with multiple prior exhausted dialysis access sites with now a tunneled femoral catheter. DISCUSSION: The hardware was removed. There was a pocket of abscess surrounding the distal femoral hardware which led to the removal. There was some curetted hardware orifices and we are waiting on the culture. In the meantime, we will start vancomycin and merrem, until we get results of the cultures. She will need protracted therapy and hopefully we can devise a vancomycin sliding scale at dialysis with suitable oral Gram-negative coverage, possible anaerobe coverage as well. Hopefully, we can avoid need for protracted central line access in view of her history of access issues and end- stage renal disease. Job ID: [id number] MTDD
[2018-05-07] MEDS: traMADol HCl 50 MG TAB PO PRN ×4 (01:36→21:27)
[2018-05-07] MEDS: Acetaminophen 500 MG TAB PO PRN ×3 (02:58→18:27)
[2018-05-07] MEDS: Sodium Chloride 0.9% 1,000 ML IV SCH ×2 (03:23→16:09)
[2018-05-07] MEDS: Carvedilol 6.25 MG TAB PO SCH (08:02)
[2018-05-07] MEDS: Aspirin 81 mg Enteric Coated Tablet PO SCH (08:02)
[2018-05-07] MEDS: Cinacalcet HCl 30 MG TAB PO SCH (08:02)
[2018-05-07] MEDS: Folic Acid/Vit B Comp W-C PO SCH (08:02)
[2018-05-07] MEDS: Calcium Acetate 667 MG CAP PO SCH ×3 (08:02→18:27)
[2018-05-07] MEDS: Escitalopram Oxalate 20 mg Tablet PO SCH (08:03)
[2018-05-07] MEDS: Docusate 100 MG CAP PO SCH (08:03)
--- NOTE | 2018-05-07 10:21 | PRG ---
DATE OF SERVICE: 05/07/2018 SERVICE: Renal Medicine. SUBJECTIVE: Ms. Rodriguez is a 67-year-old white female with ESRD, on maintenance hemodialysis, who was admitted due to nonhealing right leg wound. She had infected hardware and this was removed by her surgeon. She is also continuing IV vancomycin. We are following her up for maintenance hemodialysis. No complaints of chest pain or shortness of breath. She is complaining of constipation. OBJECTIVE: VITAL SIGNS: Blood pressure 143/67, heart rate 86, respiratory rate 18, temperature 97.7, and pulse ox 94%. GENERAL: Awake, alert, comfortable, not in distress. SKIN: Adequate turgor. HEENT: Slightly pale conjunctivae. Anicteric sclerae. No neck mass. No carotid bruits. No JVD. CHEST: No deformities. LUNGS: Clear breath sounds. HEART: Normal sinus rhythm. No murmurs, no gallops, no rubs. ABDOMEN: Globular, soft, nontender. No masses. EXTREMITIES: No edema. MEDICATIONS: Medications of May 07, 2018, reviewed. LABORATORY DATA: Laboratories of May 06, 2018; white count 8.7, hemoglobin 8.9. Sodium 134, potassium 5.3, chloride 101, carbon dioxide 21, BUN 56, creatinine 4.42, calcium 8.7. ASSESSMENT AND PLAN: 1. Infected hardware-right leg-status post removal of said hardware. On IV antibiotics, IV vancomycin. ID following. 2. End-stage renal disease, stable. We will continue current Friday, Friday, Friday dialysis. Tolerating said treatment. 3. Anemia. Started on weekly Epogen. 4. Constipation. MiraLAX 17 g daily. 5. Agree with current management. We will recheck basic metabolic and CBC in a.m. Job ID: [id number]
--- NOTE | 2018-05-07 11:37 | PRG ---
DATE OF SERVICE: 05/07/2018 SUBJECTIVE: The patient is seen and examined at the bedside. She is feeling better. She is not getting any physical therapy yet. She had her operation done 2 days ago. OBJECTIVE: VITAL SIGNS: Blood pressure is 143/67, pulse is 86, temperature is 97.7, respirations 18, and O2 saturation 94% on room air. HEAD: Atraumatic and normocephalic. HEENT: Eyes are PERRLA. Sclerae are nonicteric. Oral mucosa is slightly dry. NECK: Supple. LUNGS: Clear. HEART: S1 and S2 normal. No S3. No S4. No any murmur. ABDOMEN: Soft, nontender, and nondistended. EXTREMITIES: Right lower extremity is in dressing and immobilizer. NEUROLOGIC: She is able to move her extremities. There is no any motor deficit. LABORATORY DATA: None today. IMPRESSION: 1. Infected hardware in the right knee, status post hardware removal. Staphylococcus is growing from the right knee. 2. Anemia of chronic kidney disease. 3. Anxiety and depression. 4. Coronary artery disease, chronic, stable. 5. End-stage renal disease, on hemodialysis managed per Nephrology. 6. Hypertension, chronic, stable. 7. Secondary hyperparathyroidism. PLAN: Plan is to continue her vancomycin and meropenem. We are waiting for the final culture on her right knee specimen. We will start her on heparin 5000 units twice a day tonight every 12 hours. This was okayed by Dr. Nugent, her orthopedic surgeon and we will start her on PT and OT, and she will get additional supplementation for her nutrition. Job ID: [id number]
[2018-05-07] MEDS: Ondansetron PF 4 MG/2 ML Vial SLOW IVP PRN (12:16)
[2018-05-07] MEDS: Fentanyl 100 MCG/2 ML VIAL SLOW IVP PRN (14:23)
--- NOTE | 2018-05-07 16:21 | PRG ---
DATE OF SERVICE: 05/07/2018 SUBJECTIVE: Ms. Rodriguez is feeling well. Denies any headaches. No shortness of breath or abdominal pain. She has been afebrile. The pain is well controlled. OBJECTIVE: LUNGS: Clear. HEART: S1-S2 regular rate. ABDOMEN: Soft. EXTREMITIES: The leg dressing was not removed. LABORATORY DATA: White cell count 8.7, hemoglobin 8.9, platelets 345 and creatinine is 4.42. From the knee cultures or the femur culture actually Staphylococcus aureus has been retrieved with pending susceptibilities. ASSESSMENT AND DISCUSSION: Wound lateral aspect right distal femur site with involvement of hardware from the prior open reduction internal fixation for management of the previous fracture in the setting of end-stage renal disease with multiple prior exhausted dialysis access sites. Hopefully, the staphylococcus aureus will be the single organism retrieved, which would allow us to treat with vancomycin sliding scale for 8 weeks given the dialysis. The end date of therapy would be sometime at the end of May, beginning of June. If there are other organisms that will have to adjust accordingly, but hopefully this will be the only single organism involved. Job ID: [id number]
[2018-05-07] MEDS: Meropenem 500 MG in Sodium Chloride 0.9% 100 ML IVPB SCH (19:57)
[2018-05-07] MEDS: Simvastatin 20 MG TAB PO SCH (20:04)
[2018-05-07] MEDS: Loratadine 10 MG TAB PO SCH (20:04)
[2018-05-07] MEDS: Temazepam 15 MG CAP PO PRN (21:27)
[2018-05-08] MEDS: Ondansetron PF 4 MG/2 ML Vial SLOW IVP PRN ×2 (00:09→15:19)
[2018-05-08] MEDS: Acetaminophen 500 MG TAB PO PRN ×3 (04:48→16:55)
[2018-05-08 05:00] LABS: #Basophils 0.1 thou/uL (0.0-0.2); #Eosinphils 0.8 thou/uL (0.0-0.7); #Lymphocytes 1.4 thou/uL (1.20-3.40); #Monocytes 0.7 thou/uL (0.11-0.59); #Neutrophils 7.6 thou/uL (1.40-6.50); %Basophils 0.6 % (0.0-1.0); %Eosinophils 7.4 % (0.0-10.0); %Lymphocytes 13.6 % (21.0-51.0); %Monocytes 6.7 % (0.0-10.0); %Neutrophils 71.6 % (42.0-75.0); Hemoglobin 9.5 g/dL (12.0-16.0); Mean Corpuscular Hemoglobin 28.1 pg (27.0-31.0); Mean Corpuscular Volume 93.6 fL (78.0-98.0); Mean Platelet Volume 7.9 fL (7.4-10.4); Platelet Count 367 thou/uL (130-400); RBC Distribution Width 18.3 % (11.5-14.5); Red Blood Cell (RBC) Count 3.37 mill/uL (4.20-5.40); White Blood Cell (WBC) Count 10.5 thou/uL (4.8-10.8)
[2018-05-08 05:10] LABS: Anion Gap 19 mmol/L (10-20); BUN (Urea Nitrogen) 48 mg/dL (9.8-20.1); Calc. Creatinine Clearance 12 mL/min (70-130); Calcium 8.8 mg/dL (7.8-10.44); Carbon Dioxide 20 mmol/L (23-31); Chloride 96 mmol/L (98-107); Estimated GFR-MDRD 11; Glucose 91 mg/dL (80-115); Potassium 4.5 mmol/L (3.5-5.1); Sodium 130 mmol/L (136-145)
[2018-05-08] MEDS: traMADol HCl 50 MG TAB PO PRN ×3 (06:27→20:48)
[2018-05-08] MEDS: Sodium Chloride 0.9% 1,000 ML IV SCH ×2 (07:12→16:58)
[2018-05-08 07:54] LABS: Vancomycin, Random 23.6 ug/mL (See Comment)
[2018-05-08] MEDS ORDERED: Heparin 10,000 UNITS/ 10 ML VIAL ONE (08:16)
--- NOTE | 2018-05-08 11:54 | PRG ---
DATE OF SERVICE: 05/08/2018 SUBJECTIVE: The patient is seen and examined at the bedside. She is doing hemodialysis during my visit. She complains about some pain in her right foot which she had before, but this seems to be more than what she had it. OBJECTIVE: VITAL SIGNS: Blood pressure is 188/44 this morning that is predialysis. Temperature is 98.5, pulse is 83, respiratory rate is 16, O2 saturation is 95% on room air. Her blood pressure yesterday was from 109 to 143 systolic. HEENT: Her head is atraumatic and normocephalic. Eyes are PERRLA. Sclerae are nonicteric. Oral mucosa is somewhat dry. NECK: Supple. LUNGS: Breath sounds diminished at both bases. HEART: S1, S2, somewhat irregular. No S3. No S4. ABDOMEN: Soft, nontender. EXTREMITIES: She has a wound VAC on her right leg lesion. Her right foot, there is no any erythema. There is some mild discomfort during applied pressure to the dorsal part of the mid foot. She is able to move her toes without any problem. NEUROLOGICAL: She is quite anxious and concerned about the right foot problem. She is able to move her all 4 extremities. There is no any motor deficits. LABORATORY DATA: Labs showed white count of 10.5, hemoglobin 9.5, hematocrit 31.6, platelet count is 367,000. Sodium of 130, potassium 4.5, chloride 96, CO2 20, BUN 48, creatinine 4.14, and the rest of chemistry is within normal limits. Hepatitis B antigen, hepatitis Bs antibody and hepatitis Bs antibody index all within normal limits. Microbiology swab from the knee is positive for staphylococcus aureus, which is sensitive to vancomycin. There is no any other pathogen isolated. IMPRESSION: 1. Infected hardware in the right knee, status post hardware removal. Positive culture from the knee swab for staphylococcus aureus methicillin-resistant. The patient is on vancomycin. She was seen by Dr. Valdez, who is awaiting full report on her right knee swab to make sure that there is no any other pathogen, only MRSA. Otherwise, she would need some additional coverage for that. 2. Anemia of chronic disease. 3. Anxiety and depression. 4. Coronary artery disease, chronic, stable. 5. End-stage renal disease, on hemodialysis, managed per Nephrology. 6. Hypertension. 7. Secondary hyperparathyroidism. PLAN: Meropenem was new and with vancomycin. I believe we should have final report on this either today late or tomorrow. She will continue her PT and OT. She will continue her heparin for DVT prophylaxis and will need either usp unit or rehabilitation after that. Job ID: [id number]
[2018-05-08] MEDS: Aspirin 81 mg Enteric Coated Tablet PO SCH (13:31)
[2018-05-08] MEDS: Calcium Acetate 667 MG CAP PO SCH ×3 (13:31→16:55)
[2018-05-08] MEDS: Escitalopram Oxalate 20 mg Tablet PO SCH (13:31)
[2018-05-08] MEDS: Cinacalcet HCl 30 MG TAB PO SCH (13:32)
[2018-05-08] MEDS: Carvedilol 6.25 MG TAB PO SCH ×2 (13:32→20:49)
[2018-05-08] MEDS: Docusate 100 MG CAP PO SCH (13:32)
[2018-05-08] MEDS: Folic Acid/Vit B Comp W-C PO SCH (13:32)
[2018-05-08] MEDS: Polyethylene Glycol 3350 17 GM Packet PO SCH (13:47)
--- NOTE | 2018-05-08 15:23 | PRG ---
DATE OF SERVICE: 05/08/2018 SUBJECTIVE: Ms. Rodriguez is a 67-year-old white female who has ESRD, followed by the [facility] for maintenance hemodialysis. She underwent dialysis today without any difficulty. She tolerated said treatment. The patient was initially admitted due to infected hardware of her right lower extremity. This was surgically removed. She is currently on IV antibiotics. ID is following. She is complaining of pain around that area. The patient denies any chest pain or shortness of breath. OBJECTIVE: VITAL SIGNS: Blood pressure 188/44, heart rate 83, respiratory rate 16, temperature 98.5, pulse ox 95 percent. GENERAL: Awake, alert, comfortable, not in distress. SKIN: Adequate turgor. HEENT: Slightly pale conjunctivae. Anicteric sclerae. NECK: No neck mass. No carotid bruits. No JVD. CHEST: No deformities. LUNGS: Clear breath sounds. HEART: Normal sinus rhythm. No murmurs, gallops, or rubs. ABDOMEN: Globular, soft, nontender, no masses. EXTREMITIES: No edema. MEDICATIONS: Medications of May 08, 2018, reviewed. LABORATORY DATA: May 08, 2018; white count 10.5, hemoglobin 9.5. Sodium 130, potassium 4.5, chloride 96, carbon dioxide 20, BUN 48, creatinine 4.14, glucose 91, calcium 8.8. ASSESSMENT/PLAN: 1. End-stage renal disease, stable, tolerating current hemodialysis regimen. She underwent dialysis without any problems. Fluid removal was done. Due to the recent surgery, no heparin was used. 2. Anemia, continuing weekly Epogen. 3. [id number] Staphylococcus aureus-currently patient is on IV antibiotics. 4. Overall, agree with current management. Job ID: [id number]
[2018-05-08] MEDS: Meropenem 500 MG in Sodium Chloride 0.9% 100 ML IVPB SCH (20:48)
[2018-05-08] MEDS: Loratadine 10 MG TAB PO SCH (20:49)
[2018-05-08] MEDS: Heparin 5,000 UNITS/ML VIAL SC SCH (20:50)
[2018-05-08] MEDS: Simvastatin 20 MG TAB PO SCH (20:50)
[2018-05-09] MEDS: Temazepam 15 MG CAP PO PRN (00:07)
[2018-05-09] MEDS: Acetaminophen 500 MG TAB PO PRN ×3 (00:07→17:28)
[2018-05-09] MEDS: traMADol HCl 50 MG TAB PO PRN ×4 (02:24→21:46)
[2018-05-09] MEDS: Aspirin 81 mg Enteric Coated Tablet PO SCH (08:15)
[2018-05-09] MEDS: Calcium Acetate 667 MG CAP PO SCH ×3 (08:15→16:29)
[2018-05-09] MEDS: Carvedilol 6.25 MG TAB PO SCH ×2 (08:16→20:29)
[2018-05-09] MEDS: Cinacalcet HCl 30 MG TAB PO SCH (08:17)
[2018-05-09] MEDS: Docusate 100 MG CAP PO SCH (08:17)
[2018-05-09] MEDS: Escitalopram Oxalate 20 mg Tablet PO SCH (08:17)
[2018-05-09] MEDS: Folic Acid/Vit B Comp W-C PO SCH (08:18)
[2018-05-09] MEDS: Heparin 5,000 UNITS/ML VIAL SC SCH ×2 (08:19→20:29)
[2018-05-09] MEDS: Polyethylene Glycol 3350 17 GM Packet PO SCH (08:20)
[2018-05-09] MEDS: Sodium Chloride 0.9% 1,000 ML IV SCH ×2 (08:25→20:47)
--- NOTE | 2018-05-09 10:07 | PRG ---
DATE OF SERVICE: 05/09/2018 SUBJECTIVE: The patient is seen and examined at the bedside. She is doing quite well. She does not have the pain in her foot anymore. This is completely gone. Her appetite is fair. OBJECTIVE: VITAL SIGNS: Blood pressure is 126/64, temperature is 97.9, O2 saturation is 96% on room air. Her respirations are 16 and pulse is 77. Maximal temperature is 98.5. HEENT: Head is atraumatic and normocephalic. Sclerae are nonicteric. Oral mucosa is moist. NECK: Supple. LUNGS: Clear. HEART: S1, S2 normal. There is a systolic murmur at the left sternal border mostly audible. ABDOMEN: Soft, nontender. Bowel sounds are present. No organomegaly. EXTREMITIES: Right leg with negative pressure dressing. NEUROLOGIC: She is alert and oriented x4. There is no any motor or sensory deficits present. Cranial nerves are intact. LABORATORY DATA: None today. MICROBIOLOGY: MRSA sensitive to vancomycin. IMPRESSION: 1. Infected hardware in the right knee, status post hardware removal. Positive cultures for MRSA on vancomycin. We do not see any other pathogen growing on her cultures, only MRSA, so she will be set up for vancomycin treatment with her dialysis. 2. Anemia of chronic disease, stable. 3. Anxiety and depression, stable. 4. Coronary artery disease, chronic, stable. 5. End-stage renal disease, on hemodialysis. 6. Hypertension. 7. Secondary hyperparathyroidism. PLAN: Plan is to continue her vancomycin during dialysis. Continue all the treatment until the end of May and beginning of June, that is per Dr. Valdez' recommendation. We will try to arrange the rehab/skilled for her PT and further wound care. Job ID: [id number]
--- NOTE | 2018-05-09 11:22 | PRG ---
DATE OF SERVICE: SERVICE: Renal Medicine. SUBJECTIVE: Ms. Rodriguez is a 67-year-old white female with ESRD and being followed by [facility] Service for maintenance hemodialysis. She underwent dialysis yesterday without any difficulty. She was admitted due to an abscess on the right lateral knee-nonhealing despite of IV antibiotics. For that reason, it was decided to remove the infected hardware on the right lateral femoral. The patient is feeling better. She continues to receive IV antibiotics. ID is following. No new complaints today. No chest pain or shortness of breath. OBJECTIVE: VITAL SIGNS: Blood pressure is 126/64, heart rate 77, respiratory rate 16, temperature is 97.9, pulse ox 96%-room air. GENERAL: Awake, alert, comfortable, not in distress. SKIN: Adequate turgor. HEENT: She has pinkish conjunctivae. Anicteric sclerae. No neck mass. No carotid bruits. No JVD. CHEST: No deformities. LUNGS: Clear breath sounds. HEART: Normal sinus rhythm. No murmur. No gallops. No rubs. ABDOMEN: Globular, soft, nontender. No masses. EXTREMITIES: No edema. No deformities. MEDICATIONS: Medications of May 09, 2018, was reviewed. LABORATORY DATA: Laboratories of May 08, 2018; sodium 130, potassium 4.5, chloride 96, carbon dioxide 20, BUN 48, creatinine 4.14, glucose 91, calcium 8.8. White count 10.5, hemoglobin 9.5. ASSESSMENT AND PLAN: 1. End-stage renal disease, stable. Continue current hemodialysis regimen, tolerating said treatment, using no heparin due to the recent surgery. 2. Right leg infection-hardware has been removed, on IV antibiotics. Overall agree with current management. Job ID: [id number]
[2018-05-09] MEDS: Ondansetron PF 4 MG/2 ML Vial SLOW IVP PRN (16:50)
[2018-05-09] MEDS ORDERED: Fentanyl 100 MCG/2 ML VIAL SLOW IVP PRN (18:10)
[2018-05-09] MEDS: Meropenem 500 MG in Sodium Chloride 0.9% 100 ML IVPB SCH (20:29)
[2018-05-09] MEDS: Loratadine 10 MG TAB PO SCH (20:30)
[2018-05-09] MEDS: Simvastatin 20 MG TAB PO SCH (20:30)
[2018-05-10] MEDS: Temazepam 15 MG CAP PO PRN ×2 (00:02→23:10)
[2018-05-10] MEDS: Acetaminophen 500 MG TAB PO PRN ×2 (00:35→08:09)
[2018-05-10] MEDS: traMADol HCl 50 MG TAB PO PRN ×3 (06:13→19:04)
[2018-05-10] MEDS: Cinacalcet HCl 30 MG TAB PO SCH (08:09)
[2018-05-10] MEDS: Folic Acid/Vit B Comp W-C PO SCH (08:09)
[2018-05-10] MEDS: Docusate 100 MG CAP PO SCH (08:09)
[2018-05-10] MEDS: Escitalopram Oxalate 20 mg Tablet PO SCH (08:09)
[2018-05-10] MEDS: Carvedilol 6.25 MG TAB PO SCH (08:10)
[2018-05-10] MEDS: Aspirin 81 mg Enteric Coated Tablet PO SCH (08:10)
[2018-05-10] MEDS: Calcium Acetate 667 MG CAP PO SCH ×3 (08:10→18:38)
[2018-05-10] MEDS: Heparin 5,000 UNITS/ML VIAL SC SCH ×2 (08:12→20:49)
[2018-05-10] MEDS: Polyethylene Glycol 3350 17 GM Packet PO SCH (08:14)
--- NOTE | 2018-05-10 10:31 | PRG ---
DATE OF SERVICE: 05/10/2018 SUBJECTIVE: The patient is seen and examined at the bedside. She is doing quite well. She does not have much complaints to offer. She just finished her physical therapy. Her appetite is so-so. OBJECTIVE: VITAL SIGNS: Blood pressure is 120/62, pulse is 79, temperature is 97.9, respirations 16, and O2 saturation is 95% on room air. GENERAL: She is not in any distress during my visit. HEENT: Her eyes are PERRLA. Sclerae are nonicteric. Conjunctivae palish. Oral mucosa is moist. NECK: Supple. LUNGS: Clear. HEART: S1 and S2 normal. No S3. No S4. No any murmur. ABDOMEN: Soft and nontender. Bowel sounds are present. EXTREMITIES: Right knee with dressing status post a hardware removal for infection. NEUROLOGIC: She is alert and oriented x4. There is no any motor or sensory deficits present. Cranial nerves are intact. LABORATORY DATA: Labs showed none today. IMPRESSION: 1. Infected hardware in the right knee, status post hardware removal. Positive culture for methicillin-resistant Staphylococcus aureus on vancomycin. No any other pathogen is growing. So, she will stay on vancomycin with her dialysis until the end of May and beginning of June according to Dr. Valdez's recommendation. 2. Anemia of chronic disease, stable. 3. Anxiety and depression, stable. 4. Coronary artery disease, chronic, stable. 5. End-stage renal disease, on hemodialysis. 6. Hypertension. 7. Secondary hyperparathyroidism. PLAN: Plan is to continue her vancomycin with hemodialysis. Continue PT and OT. Rehab/skilled transfer as soon as it is arranged. Job ID: [id number]
[2018-05-10] MEDS: Sodium Chloride 0.9% 1,000 ML IV SCH (12:04)
[2018-05-10] MEDS: Fentanyl 100 MCG/2 ML VIAL SLOW IVP PRN (12:51)
[2018-05-10] MEDS: Ondansetron PF 4 MG/2 ML Vial SLOW IVP PRN (12:51)
[2018-05-10] MEDS: Loratadine 10 MG TAB PO SCH (20:49)
[2018-05-10] MEDS: Simvastatin 20 MG TAB PO SCH (20:49)
[2018-05-11] MEDS: Sodium Chloride 0.9% 1,000 ML IV SCH ×2 (00:53→14:21)
[2018-05-11] MEDS: traMADol HCl 50 MG TAB PO PRN ×3 (03:48→18:46)
[2018-05-11] MEDS: Acetaminophen 500 MG TAB PO PRN (07:35)
[2018-05-11 07:57] LABS: Vancomycin, Random 15.5 ug/mL (See Comment)
[2018-05-11] MEDS: Calcium Acetate 667 MG CAP PO SCH ×3 (08:38→17:18)
[2018-05-11] MEDS: Aspirin 81 mg Enteric Coated Tablet PO SCH (08:39)
[2018-05-11] MEDS: Cinacalcet HCl 30 MG TAB PO SCH (08:39)
[2018-05-11] MEDS: Docusate 100 MG CAP PO SCH (08:39)
[2018-05-11] MEDS: Heparin 5,000 UNITS/ML VIAL SC SCH ×2 (08:40→20:14)
[2018-05-11] MEDS: Folic Acid/Vit B Comp W-C PO SCH (08:40)
[2018-05-11] MEDS: Escitalopram Oxalate 20 mg Tablet PO SCH (08:40)
[2018-05-11] MEDS: Polyethylene Glycol 3350 17 GM Packet PO SCH (08:40)
[2018-05-11] MEDS: Carvedilol 6.25 MG TAB PO SCH ×2 (08:44→20:08)
--- NOTE | 2018-05-11 09:44 | PRG ---
DATE OF SERVICE: 05/11/2018 SUBJECTIVE: Ms. Rodriguez is a 67-year-old white female with ESRD and was admitted for infected right knee hardware. This was surgically removed. She is currently on IV antibiotics. She is also undergoing hemodialysis. I am at the bedside supervising her dialysis. She is complaining of a right postop pain. Otherwise, no chest pain or shortness of breath. OBJECTIVE: VITAL SIGNS: Blood pressure 147/75, heart rate 83, respiratory rate 16, temperature 98.2, and pulse ox 94%. GENERAL: Awake, alert, and comfortable, not in distress. SKIN: Adequate turgor. HEENT: Slightly pale conjunctivae. Anicteric sclerae. NECK: No neck mass. No carotid bruits. No JVD. CHEST: No deformities. LUNGS: Clear breath sounds. HEART: Normal sinus rhythm. No murmur. No gallops. No rubs. ABDOMEN: Globular, soft, and nontender. No masses. EXTREMITIES: No edema. MEDICATIONS: Medications of May 10, 2018, reviewed. LABORATORY DATA: Laboratories of May 08, 2018, hemoglobin 9.5. Sodium 130, potassium 4.5, chloride 96, carbon dioxide 20, BUN 48, creatinine 4.14, and calcium 8.8. ASSESSMENT AND PLAN: 1. End-stage renal disease, stable. We will continue current hemodialysis regimen. Fluid removal only as tolerated. Using no heparin or minimal heparin due to the recent surgery. 2. Anemia, currently on weekly Epogen. 3. Infected hardware, right leg - status post hardware removal, currently on IV antibiotics. Agree with current management. Recheck basic metabolic and CBC in a.m. Job ID: [id number]
[2018-05-11] MEDS ORDERED: Heparin 1,000 UNITS/ML VIAL ONE (11:11)
[2018-05-11] MEDS: HYDROcodone/Acetaminophen 10/325 mg Tablet PO PRN ×2 (15:10→20:27)
--- NOTE | 2018-05-11 16:14 | PRG ---
DATE OF SERVICE: 05/11/2018 SUBJECTIVE: The patient just had the physical therapy. She is frustrated with herself that she was not able to do more, do as much as they wanted her to. She continues to have significant pain in the right knee from [id number]. OBJECTIVE: VITAL SIGNS: Temperature 98.1, pulse 85, respirations 15, O2 sat 92% to 99% on room air, and blood pressure 132/74. GENERAL APPEARANCE: Age-appropriate female, in no distress. She is pleasant, but she is still somewhat emotionally labile over her overall situation. HEART: Regular without murmur. LUNGS: Clear to auscultation bilaterally. ABDOMEN: Soft, nontender, and nondistended. EXTREMITIES: Without significant edema. Right lower extremity, appropriately dressed. IMPRESSION AND PLAN: 1. Infected hardware, right knee, status post hardware removal. 2. Methicillin-resistant Staphylococcus aureus infection of the right knee, status post hardware removal. Continue with vancomycin with dialysis dosing. We will need to continue through the month of May. 3. Chronic kidney disease with end-stage disease on dialysis, followed by Nephrology. 4. Hypertension, well controlled. 5. History of chronic coronary artery disease, stable. 6. Secondary hyperparathyroidism, stable. 7. Anxiety and depression. The patient looks little better today than she did when I initially saw her after surgery, but she continues to be very hard on herself, very emotionally labile, and tearful at times, but certainly much improved. 8. Disposition: The patient is prepared for discharge. I discussed with Case Management, working on getting her to a swing bed if possible. Job ID: [id number]
[2018-05-11] MEDS: Loratadine 10 MG TAB PO SCH (20:08)
[2018-05-11] MEDS: Simvastatin 20 MG TAB PO SCH (20:14)
[2018-05-11] MEDS: Temazepam 15 MG CAP PO PRN (21:53)
--- NOTE | 2018-05-11 23:34 | HP ---
SUBJECTIVE: The patient has some pain in the operative site. No cough or sputum production. No abdominal pain or diarrhea. OBJECTIVE: VITAL SIGNS: T-max of 98.2, blood pressure 140/48, pulse 86, respirations 18, and O2 saturation 92% to 99%. SKIN: Shows the wound in the right knee area with fresh appearance. She has a peripheral IV access with tunneled catheter in the left groin/femoral area. The ocular movements are conjugate. LUNGS: Clear. HEART: S1 and S2, regular rate. ABDOMEN: Soft, not distended. LABORATORY DATA: White cell count 10.5, hemoglobin 9.5, platelets 367. Sodium 130, creatinine 4.15. Microbiology with MRSA. Vancomycin SHALONDA is 1. The organism is resistant to clindamycin and tetracycline. ASSESSMENT AND DISCUSSION: Wound lateral aspect right distal femur side with involvement of hardware from prior open reduction and internal fixation for management of the previous fracture in the setting of end-stage renal disease with multiple prior exhausted dialysis access sites. MRSA will be the only organism to be treated. It is a bit more resistant than one sees usually for MRSA organisms with resistance to tetracycline and clindamycin. The recommendation will be to continue vancomycin and sliding scale. The end date of therapy will be July 07. Job ID: [id number]
[2018-05-12] MEDS: HYDROcodone/Acetaminophen 10/325 mg Tablet PO PRN ×3 (02:02→20:37)
[2018-05-12] MEDS: Sodium Chloride 0.9% 1,000 ML IV SCH ×2 (02:35→17:08)
[2018-05-12 04:25] LABS: #Basophils 0.1 thou/uL (0.0-0.2); #Eosinphils 0.9 thou/uL (0.0-0.7); #Lymphocytes 1.9 thou/uL (1.20-3.40); #Monocytes 0.8 thou/uL (0.11-0.59); #Neutrophils 6.4 thou/uL (1.40-6.50); %Basophils 1.5 % (0.0-1.0); %Eosinophils 9.2 % (0.0-10.0); %Lymphocytes 18.3 % (21.0-51.0); %Monocytes 7.8 % (0.0-10.0); %Neutrophils 63.2 % (42.0-75.0); Hemoglobin 9.8 g/dL (12.0-16.0); Mean Corpuscular HGB CONC 29.3 g/dL (32.0-36.0); Mean Corpuscular Hemoglobin 27.5 pg (27.0-31.0); Mean Corpuscular Volume 93.9 fL (78.0-98.0); Mean Platelet Volume 7.7 fL (7.4-10.4); Platelet Count 391 thou/uL (130-400); RBC Distribution Width 17.7 % (11.5-14.5); Red Blood Cell (RBC) Count 3.57 mill/uL (4.20-5.40); White Blood Cell (WBC) Count 10.2 thou/uL (4.8-10.8)
[2018-05-12 04:43] LABS: Anion Gap 18 mmol/L (10-20); BUN (Urea Nitrogen) 36 mg/dL (9.8-20.1); Calc. Creatinine Clearance 14 mL/min (70-130); Calcium 8.5 mg/dL (7.8-10.44); Carbon Dioxide 23 mmol/L (23-31); Chloride 96 mmol/L (98-107); Estimated GFR-MDRD 13; Glucose 80 mg/dL (80-115); Sodium 133 mmol/L (136-145)
[2018-05-12] MEDS: Folic Acid/Vit B Comp W-C PO SCH (10:04)
[2018-05-12] MEDS: Calcium Acetate 667 MG CAP PO SCH ×3 (10:04→17:49)
[2018-05-12] MEDS: Docusate 100 MG CAP PO SCH (10:04)
[2018-05-12] MEDS: Carvedilol 6.25 MG TAB PO SCH (10:04)
[2018-05-12] MEDS: Escitalopram Oxalate 20 mg Tablet PO SCH (10:04)
[2018-05-12] MEDS: Cinacalcet HCl 30 MG TAB PO SCH (10:04)
[2018-05-12] MEDS: Aspirin 81 mg Enteric Coated Tablet PO SCH (10:04)
[2018-05-12] MEDS: Polyethylene Glycol 3350 17 GM Packet PO SCH (10:04)
[2018-05-12] MEDS: Heparin 5,000 UNITS/ML VIAL SC SCH ×2 (10:14→20:35)
[2018-05-12] MEDS: Acetaminophen 500 MG TAB PO PRN (13:34)
--- NOTE | 2018-05-12 18:00 | PRG ---
DATE OF SERVICE: 05/12/2018 SUBJECTIVE: The patient is feeling better today. Her pain has actually improved. She did get up with physical therapy and felt much better with that today. OBJECTIVE: VITAL SIGNS: Temperature 98.4, pulse 81, respirations 16, O2 saturation 94% on room air, BP 136/92. GENERAL APPEARANCE: Age-appropriate female, in no distress. HEART: Mild S3 at the left lower sternal border with 1/6 murmur at the right upper sternal border. LUNGS: Clear bilaterally. ABDOMEN: Soft and nontender. EXTREMITIES: Warm and dry. Right leg in immobilizer brace. IMPRESSION AND PLAN: 1. 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 She is on vancomycin. She will need to stay on that until the middle of June per Dr. Valdez given the resistance pattern of the Methicillin-resistant staphylococcus aureus. 2. Chronic kidney disease on dialysis, stable. 3. Hypertension, well controlled. 4. History of coronary artery disease, stable. 5. History of secondary hyperparathyroidism, stable. 6. Anxiety and depression, fantastically better today. The patient's anxiety appears to be much improved. She appears to be much more optimistic about opportunities to get better today. She is still. 7. Disposition. Still waiting to get disposition and the patient will talk to Dr. Ruiz today regarding swing bed. Job ID: [id number]
[2018-05-12] MEDS: Loratadine 10 MG TAB PO SCH (20:35)
[2018-05-12] MEDS: Simvastatin 20 MG TAB PO SCH (20:35)
[2018-05-12] MEDS: Temazepam 15 MG CAP PO PRN (21:59)
[2018-05-12] MEDS: traMADol HCl 50 MG TAB PO PRN (23:09)
[2018-05-13] MEDS: Sodium Chloride 0.9% 1,000 ML IV SCH (05:00)
[2018-05-13] MEDS: HYDROcodone/Acetaminophen 10/325 mg Tablet PO PRN ×2 (06:31→12:48)
[2018-05-13 07:28] LABS: Vancomycin, Random 13.1 ug/mL (See Comment)
[2018-05-13] MEDS: traMADol HCl 50 MG TAB PO PRN (08:40)
--- NOTE | 2018-05-13 09:52 | PRG ---
DATE OF SERVICE: SUBJECTIVE: Ms. Rodriguez is a 67-year-old white female with ESRD. She was admitted for nonhealing wound on the right leg. She was found to have infected hardware. This was surgically removed. She is currently recuperating. She is currently receiving IV antibiotics. No other complaints today. The patient is scheduled for her regular dialysis today. OBJECTIVE: VITAL SIGNS: Blood pressure is 120/75, heart rate 81, respiratory rate 18, temperature 98.8, and pulse ox 94%. GENERAL: Noted to be awake, alert, comfortable, not in overt distress. SKIN: Adequate turgor. HEENT: Pinkish conjunctivae. Anicteric sclerae. No neck mass. No carotid bruits. No JVD. CHEST: No deformities. LUNGS: Clear breath sounds. No wheezing. No crackles. HEART: Normal sinus rhythm. No murmur. No gallops. No rubs. ABDOMEN: Globular, soft, and nontender. No masses. EXTREMITIES: No edema. MEDICATIONS: Medications of May 13, 2018, were reviewed. LABORATORY DATA: Laboratories of May 12, 2018; white count 10.2 and hemoglobin 9.8. Sodium 133, potassium 4, chloride 96, carbon dioxide 23, BUN 36, creatinine 3.61, glucose 80, and calcium 8.5. ASSESSMENT AND PLAN: 1. End-stage renal disease, stable. We will continue current Friday, Friday, and Friday hemodialysis. Fluid removal only as tolerated. No changes will be made with the current dialytic regimen. 2. Chronic anemia. The patient is currently on her weekly Epogen. 3. The patient is recently status post right lower extremity surgery. Her infected hardware from the right leg has been removed. On IV antibiotics. 4. Agree with current management. Job ID: [id number]
[2018-05-13] MEDS ORDERED: Heparin 10,000 UNITS/ 10 ML VIAL ONE (10:00)
[2018-05-13] MEDS: Calcium Acetate 667 MG CAP PO SCH ×2 (10:14→12:50)
[2018-05-13] MEDS: Aspirin 81 mg Enteric Coated Tablet PO SCH (12:49)
[2018-05-13] MEDS: Docusate 100 MG CAP PO SCH (12:50)
[2018-05-13] MEDS: Polyethylene Glycol 3350 17 GM Packet PO SCH (12:50)
[2018-05-13] MEDS: Heparin 5,000 UNITS/ML VIAL SC SCH (12:51)
[2018-05-13] MEDS: Escitalopram Oxalate 20 mg Tablet PO SCH (12:51)
[2018-05-13] MEDS: Folic Acid/Vit B Comp W-C PO SCH (12:51)
[2018-05-13] MEDS: Carvedilol 6.25 MG TAB PO SCH (12:51)
[2018-05-13] MEDS: Cinacalcet HCl 30 MG TAB PO SCH (12:51)
[2018-05-13] MEDS ORDERED: ALPRAZolam 0.5 MG TAB PO PRN (13:14)
[2018-05-13] MEDS: Epoetin (ESRD) 20,000 UNITS/ML SC SCH (14:48)
[2018-05-13 15:01] VITALS: BP 110/62; TEMP 98.5
== END 2018-05-13 15:20 | disposition critical access hospital (66) | DRG 463 ==
LOC: SURG B 10:06 → SURG A 05-06 09:04
PROVIDERS: ADMIT Orthopaedic Surgery; ATTEND Orthopaedic Surgery
PROC: 0SPC0JZ Removal of Synthetic Substitute from Right Knee Joint, Open Approach (ICD-10-PCS; principal; 2018-05-05)
PROC: 5A1D70Z Performance of Urinary Filtration, Intermittent, Less than 6 Hours Per Day (ICD-10-PCS; 2018-05-06)
DX: T84.53XA Infection and inflammatory reaction due to internal right knee prosthesis, initial encounter (principal); N18.6 End stage renal disease; I12.0 Hypertensive chronic kidney disease with stage 5 chronic kidney disease or end stage renal disease; N25.81 Secondary hyperparathyroidism of renal origin; B95.62 Methicillin resistant Staphylococcus aureus infection as the cause of diseases classified elsewhere; K21.9 Gastro-esophageal reflux disease without esophagitis; G47.00 Insomnia, unspecified; E78.5 Hyperlipidemia, unspecified; M19.90 Unspecified osteoarthritis, unspecified site; F32.9 Major depressive disorder, single episode, unspecified; I25.10 Atherosclerotic heart disease of native coronary artery without angina pectoris; F41.9 Anxiety disorder, unspecified; I95.89 Other hypotension; D63.1 Anemia in chronic kidney disease; K59.00 Constipation, unspecified; J30.9 Allergic rhinitis, unspecified; Z95.1 Presence of aortocoronary bypass graft; Z90.10 Acquired absence of unspecified breast and nipple; Z88.1 Allergy status to other antibiotic agents; Z88.8 Allergy status to other drugs, medicaments and biological substances; Z79.82 Long term (current) use of aspirin; Z99.2 Dependence on renal dialysis; Z85.51 Personal history of malignant neoplasm of bladder
CPT/HCPCS: 36415; 76000; 80048; 80053; 80202; 85025; 85652; 86140; 86706; 87070; 87077; 87186; 87205; 87340; 90935; 93005; 93010; A4216; G0257; J0131; J1644; J2001; J2185; J2405; J2550; J2704; J2997; J3010; J3370; J3490; J7050; Q4081

== ENCOUNTER 2018-07-29 06:56 | Inpatient (IN) | payer MEDICARE ==
[2018-07-29 09:22] LABS: #Basophils 0.1 thou/uL (0.0-0.2); #Eosinphils 0.1 thou/uL (0.0-0.7); #Lymphocytes 1.6 thou/uL (1.20-3.40); #Monocytes 0.5 thou/uL (0.11-0.59); #Neutrophils 6.7 thou/uL (1.40-6.50); %Basophils 1.1 % (0.0-1.0); %Monocytes 5.3 % (0.0-10.0); %Neutrophils 74.6 % (42.0-75.0); Hemoglobin 6.6 g/dL (12.0-16.0); Mean Corpuscular HGB CONC 32.8 g/dL (32.0-36.0); Mean Corpuscular Hemoglobin 29.8 pg (27.0-31.0); Mean Corpuscular Volume 90.9 fL (78.0-98.0); Mean Platelet Volume 7.6 fL (7.4-10.4); Platelet Count 326 thou/uL (130-400); Red Blood Cell (RBC) Count 2.23 mill/uL (4.20-5.40)
[2018-07-29 09:40] LABS: ALT (SGPT) 11 U/L (8-55); AST (SGOT) 10 U/L (5-34); Albumin 2.9 g/dL (3.4-4.8); Alkaline Phosphatase 184 U/L (40-150); Anion Gap 19 mmol/L (10-20); BUN (Urea Nitrogen) 125 mg/dL (9.8-20.1); Bilirubin, Total 0.5 mg/dL (0.2-1.2); Calc. Creatinine Clearance 0 mL/min (70-130); Calcium 8.6 mg/dL (7.8-10.44); Carbon Dioxide 22 mmol/L (23-31); Chloride 102 mmol/L (98-107); Estimated GFR-MDRD 10; Globulin 2.9 g/dL (2.4-3.5); Glucose 128 mg/dL (80-115); Potassium 4.9 mmol/L (3.5-5.1); Protein, Total 5.8 g/dL (6.0-8.3); Sodium 138 mmol/L (136-145)
[2018-07-29 10:16] LABS: Troponin I 0.032 ng/mL (< 0.028)
[2018-07-29] MEDS ORDERED: Acetaminophen 650 MG Suppository PR PRN (10:19)
[2018-07-29] MEDS ORDERED: Guaifenesin DM 100-10/5 ML UDCUP PO PRN (10:19)
[2018-07-29] MEDS ORDERED: Pantoprazole 80 MG, Admixture Fee 1 EACH in Sodium Chloride 0.9% 100 ML IVP SCH (10:19)
[2018-07-29] MEDS ORDERED: Senokot S 8.6-50 MG TAB PO PRN (10:19)
[2018-07-29] MEDS ORDERED: Vancomycin HCl 250 MG in Sodium Chloride 0.9% 100 ML IVPB SCH (10:30)
[2018-07-29] MEDS ORDERED: HOLD VANCOMYCIN FOR LEVEL >20 FS SCH (10:30)
[2018-07-29] MEDS ORDERED: Vancomycin HCl 1 GM in Premix Bag 1 BAG IVPB SCH ×2 (10:30→12:00)
[2018-07-29 10:32] VITALS: BMI 21.7
[2018-07-29] MEDS ORDERED: Vancomycin Sliding Scale 1 EACH IVPB PRN (10:36)
[2018-07-29] MEDS: Ondansetron PF 4 MG/2 ML Vial IVP PRN ×2 (12:15→19:21)
[2018-07-29] MEDS: Piperacillin/Tazobactam 2.25 GM in Sodium Chloride 0.9% 100 ML IVPB SCH ×2 (12:18→23:19)
--- NOTE | 2018-07-29 12:25 | PDOC.PULCN ---
Pulmonology Consult: HPI - Date of Consult Date: 07/29/18 Time: 12:24 Pulmonology Consult: Meds - Medications Medications: Current Medications Acetaminophen (Tylenol) 650 mg PO Q4H PRN PRN Reason: Headache/Fever/Mild Pain (1-3) Acetaminophen (Tylenol) 650 mg MI Q4H PRN PRN Reason: Headache/Fever/Mild Pain (1-3) Desmopressin Acetate (Ddavp) 16 mcg IVP [facility] Guaifenesin/Dextromethorphan (Robitussin Dm) 15 ml PO Q4H PRN PRN Reason: Cough Pantoprazole Sodium 80 mg/Miscellaneous Medication 1 each/ Sodium Chloride 100 mls @ 10 mls/hr IVP INF FERNANDO Piperacillin Sod/Tazobactam (Sod 2.25 gm/ Sodium Chloride) 100 mls @ 200 mls/ hr IVPB 1100,2300 FERNANDO Last Admin: 07/29/18 12:18 Dose: 100 mls Vancomycin HCl 1 gm/ Device 200 mls @ 200 mls/hr IVPB WILLCALL FERNANDO Vancomycin HCl 750 mg/ Sodium (Chloride) 250 mls @ 250 mls/hr IVPB WILLCALL FERNANDO Vancomycin HCl 500 mg/ Sodium (Chloride) 100 mls @ 100 mls/hr IVPB WILLCALL FERNANDO Vancomycin HCl 250 mg/ Sodium (Chloride) 100 mls @ 100 mls/hr IVPB WILLCALL FERNANDO Vancomycin HCl 1 gm/ Device 200 mls @ 200 mls/hr IVPB 1200 FERNANDO Stop: 07/29/18 12:59 Miscellaneous Medication (Vancomycin Sliding Scale) 1 each IVPB .MWF DIALYSIS PRN PRN Reason: LABS Miscellaneous Medication (Pharmacy To Dose) 0 each IVPB .VANC /DIALYSIS PRN PRN Reason: LABS Hold Vancomycin For (Level >20) 0 each FS .AT [facility] Ondansetron HCl (Zofran Odt) 4 mg PO Q6H PRN PRN Reason: Nausea/Vomiting Ondansetron HCl (Zofran) 4 mg IVP Q6H PRN PRN Reason: Nausea/Vomiting Last Admin: 07/29/18 12:15 Dose: 4 mg Senna/Docusate Sodium (Senokot S) 2 tab PO BID PRN PRN Reason: Constipation Sodium Chloride (Flush - Normal Saline) 10 ml IVF PRN PRN PRN Reason: Saline Flush - Allergies Allergies/Adverse Reactions: Allergies Allergy/AdvReac Type Severity Reaction Status Date / Time atorvastatin calcium Allergy Intermediate Rash Verified 05/13/18 17:06 [From Lipitor] cefuroxime axetil Allergy Intermediate Rash Verified 05/13/18 17:06 [From Ceftin] meperidine HCl [From Demerol] Allergy Intermediate SHAKING Verified 05/13/18 17: 06 nitrofurantoin Allergy Intermediate Nausea Verified 05/13/18 17:06 [From Macrodantin] Pulmonology Consult: Results - Labs Result Diagrams: 07/29/18 15:50 07/29/18 09:09 Pulmonology Consult: A/P - Problem (1) GI bleed Current Visit: Yes Code(s): K92.2 - GASTROINTESTINAL HEMORRHAGE, UNSPECIFIED Status: Acute (2) Post op infection Current Visit: Yes Code(s): T81.40XA - INFECTION FOLLOWING A PROCEDURE, UNSPECIFIED, INIT Status: Acute (3) MRSA bacteremia Current Visit: No Code(s): R78.81 - BACTEREMIA Status: Acute (4) Anemia in chronic kidney disease Current Visit: No Code(s): N18.9 - CHRONIC KIDNEY DISEASE, UNSPECIFIED; D63.1 - ANEMIA IN CHRONIC KIDNEY DISEASE Status: Chronic Qualifiers: (5) ESRD (end stage renal disease) on dialysis Current Visit: No Code(s): N18.6 - END STAGE RENAL DISEASE; Z99.2 - DEPENDENCE ON RENAL DIALYSIS Status: Chronic - Time Time: 50% of the time was spent in coordination of care (as documented) at patient's floor/unit and/or counseling patient. Time with Patient: greater than 70 minutes Addendum - Attending - Attending Attestation Date/Time: 07/29/18 [id number] I personally evaluated the patient and discussed the management with Dr. Briggs. I agree with the History, Examination, Assessment and Plan documented above with any addition or exceptions noted below. GI Bleed, upper suspected. Acute blood loss anemia. 70 minutes have been devoted to this patient in various activities. I personally reviewed all imaging studies and laboratory data noted within this document. For fifty percent of this time, I was interacting with the patient at the bedside or coordinating care with the care team. For the remainder of the time I was immediately available to the patient in the hospital unit.
[2018-07-29] MEDS ORDERED: Prevnar 13-Val Conj/PF 0.5 ML SYRINGE IM ONE (12:45)
--- NOTE | 2018-07-29 13:32 | HP ---
PRIMARY CARE PHYSICIAN: Rachel Hernandez MD CHIEF COMPLAINT: Transfer for GI bleed. HISTORY OF PRESENT ILLNESS: This is a 68-year-old white female with no previous history of GI bleeding. Does have gastroesophageal reflux disease and takes a daily Prilosec. The patient was in her normal state of health until yesterday evening. She started getting nauseated and then started repeatedly vomiting brown fluid, eventually went into the [facility] this morning. There, she was noted to be having coffee-grounds emesis. Her hemoglobin was 5. She was given a transfusion. She was also noted to have a dirty urine, look like a UTI and a mild leukocytosis, so she was given Zosyn and vancomycin. The patient was also noted to have a draining fistula appearing track on her right hip. This apparently had come up recently and had grew out MRSA, for which she was on Bactrim for. They did a CT scan, which showed just stranding in the soft tissues, but no abscess collection and no abnormalities of the underlying artificial hip. The patient was given antiemetic, I believe Phenergan in the outside emergency room, so she is kind of sleepy, but has not vomited since. They did a repeat hemoglobin on her here and it is up to 6.6. She has been having mild tachycardia in the 90s and stable blood pressures. PAST MEDICAL HISTORY: 1. End-stage renal disease, on hemodialysis, followed by Dr. Rucker. 2. Gastroesophageal reflux disease. 3. Coronary artery disease. 4. Dyslipidemia. 5. Osteoporosis. 6. Allergic rhinitis. 7. History of breast cancer. 8. 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 9. Previous intra-articular fracture of the distal right femur requiring open reduction and internal fixation, that was infected with MRSA and required removal of hardware and immobilization and long-term vancomycin that was supposed to be stopped on the 14th of last month, previously seen by Dr. Valdez. PAST PSYCHIATRIC HISTORY: Depression and anxiety. PAST SURGICAL HISTORY: 1. Right mastectomy. 2. Coronary artery bypass grafting. 3. Nephrectomy. 4. Partial hysterectomy. 5. Multiple AV fistulas and revisions. 6. Ileal conduit. 7. Ileostomy. 8. Aortic valve repair. 9. Right knee surgery for distal right femur fracture, complicated by infection. ALLERGIES: 1. ATORVASTATIN. 2. CEFUROXIME. 3. MEPERIDINE. 4. NITROFURANTOIN. MEDICATIONS: Reviewed from the ER chart, see computer chart for details. FAMILY HISTORY: Positive for Parkinson disease in her mother and CVA in her father. SOCIAL HISTORY: No tobacco, alcohol, or illicit drug use. The patient is . REVIEW OF SYSTEMS: CONSTITUTIONAL: No fevers. No chills. EYES: No double vision or blurred vision. ENT: No congestion, drainage, or sore throat. CARDIOVASCULAR: No chest pain. No palpitations or racing heart. PULMONARY: No coughing, wheezing, or shortness of breath. GASTROINTESTINAL: See HPI. No diarrhea. No melena. No hematochezia. GENITOURINARY: No dysuria or hematuria that she does have the ileal conduit. MUSCULOSKELETAL: She does have some pain and weakness on the right lower extremity, which prevents her from ambulating much. She is mostly wheelchair, but was able to get up a little bit. SKIN: See HPI. NEUROLOGIC: No numbness, tingling, or focal weakness. PHYSICAL EXAMINATION: VITAL SIGNS: Blood pressure 125/61, pulse 97, respirations 24, temperature 98.2 , and O2 saturation 96% on room air. GENERAL: This is a well-developed, well-nourished white female, in no acute distress, but is groggy from [facility].. HEENT: Pupils are equal, round, and reactive to light. Oropharynx clear without lesions, erythema, or exudate. Her mucous membranes do appear a bit pale. HEART: Regular rate and rhythm. No murmurs, rubs, or gallops. LUNGS: Clear to auscultation bilaterally. No wheezes, crackles, or rhonchi. ABDOMEN: Soft and nontender to palpation. Normoactive bowel sounds. No hepatosplenomegaly or other masses. EXTREMITIES: No clubbing, cyanosis, or edema. SKIN: No rashes or other lesions noted. There appears to be a fistula tract draining mucoid material out of her right hip. No surrounding cellulitis. NEUROLOGIC: She has intact strength and sensation in all extremities. No facial droop. LABORATORY DATA: CBC with a white blood cell count here down to 9.0, hemoglobin 6.6, hematocrit 20.2, and platelet count 326. Complete metabolic panel from an outside emergency room was notable for creatinine in the 4s. No other significant abnormalities. CT scan in the [facility], see HPI. ASSESSMENT AND PLAN: 1. Acute upper gastrointestinal bleed. We will continue Protonix drip. We will transfuse two more units of packed red blood cells and check H and H q.6 hours. I have talked to Dr. Bell and he is going to see the patient and try and get an upper endoscopy later today. I will watch the patient closely in the ICU for any decompensation. 2. Possible urinary tract infection. The patient does have the ileal conduit and probably poor urinary output due to her end-stage renal disease, uncertain how significant this bacteria inflammatory changes are in her urine. Uncertain if a culture was done in the outside emergency room either. We will go and continue the Zosyn here, renally dosed. 3. Right hip infection with methicillin-resistant Staphylococcus aureus with previous recurrent methicillin-resistant Staphylococcus aureus infections of the joints and AV fistulas. We will continue vancomycin emerges in the hospital. We will have Pharmacy due to her renal disease. We will have Dr. Herron with Orthopedics and Dr. Valdez for Infectious Disease consult to assist with the patient's care. 4. End-stage renal disease, on dialysis. We will consult Dr. Rucker for continued dialysis in the hospital. 5. Deep venous thrombosis prophylaxis the patient on sequential compression devices on the bed. No anticoagulants due to her active bleeding. 6. Code status: Did discuss the patient she is a full code. Should she be incapacitated. She stated her daughter would be her medical decision maker. Job ID: [id number] MTDD
[2018-07-29 16:21] LABS: Troponin I 0.027 ng/mL (< 0.028)
[2018-07-29] MEDS ORDERED: PROPOFOL 20 ML ONE (16:47)
[2018-07-29] MEDS ORDERED: PROPOFOL 200 MG/20 ML VIAL ONE (17:07)
[2018-07-29] MEDS ORDERED: clonazePAM 0.5 MG TAB PO PRN (17:46)
--- NOTE | 2018-07-29 18:31 | CON ---
DATE OF CONSULTATION: 07/29/2018 HISTORY OF PRESENT ILLNESS: Ms. Rodriguez is a 68-year-old female from [place], who was in her usual state of health until 11 o'clock last night when she had sudden onset of nausea and vomiting with dark brown material. She did not see any coffee-ground emesis or marisol hematemesis. She was initially brought to [place] ER, where she was noted to be profoundly anemic with a hemoglobin of 5. She was given 1 unit and was subsequently transferred to [facility]. Her arriving hemoglobin after 1 unit was 6.4. She denies having any abdominal pain. Her last bowel movement was 4 days ago and was normal. At that time, she was having some diarrhea while taking Bactrim which she took [id number] Imodium. Currently, she is hemodynamically stable. She is not having any orthostatic symptoms. She is currently receiving a second unit of RBC. The patient has been taking Naprosyn for her right knee for the last 5 months in addition to [id number] Aleve. She denies having had any prior peptic ulcer disease or any prior GI bleeding. PAST MEDICAL HISTORY: 1. Coronary artery disease, status post bypass surgery x2. 2. Hypertension. 3. End-stage renal disease, on dialysis three times a week. 4. Gastroesophageal reflux. 5. Hyperlipidemia. 6. Status post nephrectomy. 7. Status post partial hysterectomy. 8. Status post aortic valve repair. 9. Right knee surgery. 10. Multiple AV fistula surgery and revisions. Currently getting dialyzed through a femoral catheter. 11. History of breast cancer, status post right mastectomy. ALLERGIES: INCLUDE CEFUROXIME, MEPERIDINE, NITROFURANTOIN, AND ATORVASTATIN. FAMILY HISTORY: Negative for any known GI problem, liver disease, or GI malignancy. SOCIAL HISTORY: The patient lives alone with a dog. No tobacco or alcohol usage. REVIEW OF SYSTEMS: A 10-point review of systems did not show any other pertinent positives or negatives. CURRENT MEDICATIONS: At home include: 1. Tramadol. 2. Klonopin. 3. Wellbutrin. 4. Vancomycin. 5. Pravachol. 6. MiraLAX. 7. Pantoprazole. 8. Naprosyn 500 mg b.i.d. 9. [place] p.r.n. 10. Nephro-Mimi. 11. Coreg. 12. Aspirin 81 mg daily. PHYSICAL EXAMINATION: VITAL SIGNS: Temperature is 97.8, blood pressure 119/61, pulse of 97. GENERAL: She is alert, anxious, but in no severe distress. HEENT: Shows anicteric sclerae. Oropharynx is clear. NECK: Supple. CV: Shows normal S1 and S2 with 2/6 systolic murmur. CHEST: Shows a breath sound. ABDOMEN: Soft, nontender, good bowel sounds. No organomegaly. EXTREMITIES: Shows no edema. LABORATORY DATA: WBCs 9.0, hemoglobin 6.6 after 1 unit of RBC, platelet count of 326, MCV of 90.9. Electrolytes within normal range. Creatinine is 4.28, BUN of 125. LFTs are within normal range. Troponin I 0.032. ASSESSMENT: 1. The patient presents with acute on chronic anemia with hemoglobin of 5 in outlying ER with baseline hemoglobin approximately 9 g/dL with evidence of upper GI bleed. 2. Upper GI bleed in the setting of chronic NSAID usage, likely peptic ulcer disease. 3. Multiple medical problems including chronic kidney disease, end-stage renal disease, hyperlipidemia, hypertension. 4. Currently hemodynamically stable, getting her second unit of RBC. RECOMMENDATION: 1. Continue with transfusion support to maintain hemoglobin at or above 7 g/dL. 2. Continue IV Protonix. 3. Diagnostic upper endoscopy later today to elucidate source of bleeding and to control if necessary. Discussed with the patient. Job ID: [id number]
[2018-07-29 19:59] LABS: Troponin I 0.027 ng/mL (< 0.028)
[2018-07-29] MEDS ORDERED: Sterile Water 10 ML VIAL IVP SCH (20:56)
[2018-07-29] MEDS ORDERED: Activase 2 MG VIAL CATH SCH (21:00)
[2018-07-29] MEDS ORDERED: Temazepam 15 MG CAP PO PRN (21:00)
[2018-07-29] MEDS: Carvedilol 6.25 MG TAB PO SCH (21:29)
[2018-07-29] MEDS: Loratadine 10 MG TAB PO SCH (21:29)
[2018-07-29] MEDS: Docusate 100 MG CAP PO SCH (21:29)
[2018-07-29] MEDS: Simvastatin 20 MG TAB PO SCH (21:29)
[2018-07-29 21:30] LABS: Hemoglobin 7.4 g/dL (12.0-16.0)
[2018-07-29] MEDS: HYDROcodone/Acetaminophen 7.5/325 mg Tablet PO PRN (21:30)
[2018-07-29] MEDS: buPROPion HCl 100 MG TAB PO SCH (21:30)
[2018-07-29] MEDS: Pantoprazole 40 MG VIAL IVP SCH (21:36)
[2018-07-29] MEDS: EPOETIN ALFA-EPBX (ESRD) 4,000 UNIT/ML VIAL SC SCH (21:37)
[2018-07-29 23:51] LABS: HBSAg Index 0.26 S/CO (0-0.99); Hep B Surf Ag Non-Reactive S/CO (NonReactive)
[2018-07-30] MEDS: Temazepam 15 MG CAP PO PRN ×2 (00:32→21:49)
[2018-07-30 04:36] LABS: #Basophils 0.1 thou/uL (0.0-0.2); #Eosinphils 1.3 thou/uL (0.0-0.7); #Monocytes 0.6 thou/uL (0.11-0.59); #Neutrophils 4.4 thou/uL (1.40-6.50); %Basophils 1.1 % (0.0-1.0); %Eosinophils 15.8 % (0.0-10.0); %Lymphocytes 23.2 % (21.0-51.0); %Monocytes 7.5 % (0.0-10.0); %Neutrophils 52.3 % (42.0-75.0); Hemoglobin 6.6 g/dL (12.0-16.0); Mean Corpuscular HGB CONC 33.8 g/dL (32.0-36.0); Mean Corpuscular Hemoglobin 30.5 pg (27.0-31.0); Mean Corpuscular Volume 90.2 fL (78.0-98.0); Mean Platelet Volume 7.8 fL (7.4-10.4); Platelet Count 270 thou/uL (130-400); RBC Distribution Width 15.9 % (11.5-14.5); Red Blood Cell (RBC) Count 2.16 mill/uL (4.20-5.40); White Blood Cell (WBC) Count 8.4 thou/uL (4.8-10.8)
[2018-07-30 04:57] LABS: Anion Gap 17 mmol/L (10-20); BUN (Urea Nitrogen) 108 mg/dL (9.8-20.1); Calc. Creatinine Clearance 11 mL/min (70-130); Calcium 8.7 mg/dL (7.8-10.44); Carbon Dioxide 22 mmol/L (23-31); Chloride 103 mmol/L (98-107); Estimated GFR-MDRD 11; Glucose 106 mg/dL (80-115); Potassium 4.4 mmol/L (3.5-5.1); Sodium 138 mmol/L (136-145)
--- NOTE | 2018-07-30 08:34 | PDOC.PN ---
- Subjective Encounter Start Date: 07/30/18 Encounter Start Time: 10:00 Subjective: Patient seen getting dialysis in ICU, transfusion going with dialysis. Feel -: tired, no further vomiting. Just pain in right knee that is chronic. - Objective Resuscitation Status - Order Detail: 07/29/18 09:57 Resuscitation Status Routine Resuscitation Status: FULL: Full Resuscitation Discussed with: Patient JAYLAN Reviewed: Yes Vital Signs & Weight: Vital Signs (12 hours) Temp BP 07/30/18 04:00 97.9 F 07/30/18 00:00 98.2 F 07/29/18 21:29 125/54 L Weight Weight 122 lb 5.705 oz Most Recent Monitor Data Heart Rate from ECG 83 NIBP 116/53 NIBP BP-Mean 74 Respiration from ECG 17 SpO2 96 I&O: 07/29/18 07/30/18 07/31/18 06:59 06:59 06:59 Intake Total 972 0 Output Total 1000 0 Balance -28 0 Result Diagrams: 07/30/18 07:38 07/30/18 04:13 Phys Exam - Physical Examination Constitutional: NAD HEENT: moist MMs Respiratory: no wheezing, no rales, no rhonchi Cardiovascular: RRR, no significant murmur Gastrointestinal: soft, non-tender, positive bowel sounds wound distal to right lateral hip with dressing in place Neurological: non-focal Psychiatric: normal affect, A&O x 3 Dx/Plan (1) Upper GI bleed Code(s): K92.2 - GASTROINTESTINAL HEMORRHAGE, UNSPECIFIED Status: Acute Comment: errosive esophagitis on EGD, Hgb still low, transfusion never given last night, will need to transfuse 2 more units (2) Acute on chronic blood loss anemia Code(s): D62 - ACUTE POSTHEMORRHAGIC ANEMIA Status: Acute Comment: will try to give 2 units with dialysis today (3) UTI (urinary tract infection) Status: Acute (4) MRSA infection Code(s): A49.02 - METHICILLIN RESIS STAPH INFECTION, UNSP SITE Status: Acute Comment: right hip, likely of artificial hip, orth and ID consulted, on Vanc (5) ESRD (end stage renal disease) on dialysis Code(s): N18.6 - END STAGE RENAL DISEASE; Z99.2 - DEPENDENCE ON RENAL DIALYSIS Status: Chronic Comment: Maintenance HD (6) CAD (coronary artery disease) Code(s): I25.10 - ATHSCL HEART DISEASE OF [place] CORONARY ARTERY W/O ANG PCTRS Status: Chronic (7) Hypertension Code(s): I10 - ESSENTIAL (PRIMARY) HYPERTENSION Status: Chronic Qualifiers: - Plan cont current plan of care stable to transfer to medical * . - Discharge Day Encounter end time: 10:15
[2018-07-30] MEDS: Fluticasone Propionate Nasal Spray 16 gm Bottle NASAL SCH (08:48)
[2018-07-30] MEDS: buPROPion HCl 100 MG TAB PO SCH ×2 (08:49→20:41)
[2018-07-30] MEDS: Pantoprazole 40 MG VIAL IVP SCH ×2 (08:49→20:43)
[2018-07-30] MEDS: Docusate 100 MG CAP PO SCH ×2 (08:50→20:43)
[2018-07-30] MEDS: Carvedilol 6.25 MG TAB PO SCH ×2 (08:52→20:41)
[2018-07-30] MEDS: Folic Acid/Vit B Comp W-C PO SCH (08:52)
[2018-07-30] MEDS: Calcium Acetate 667 MG CAP PO SCH ×3 (08:54→17:22)
[2018-07-30] MEDS: Escitalopram Oxalate 20 mg Tablet PO SCH (08:54)
[2018-07-30] MEDS ORDERED: Folic Acid/Vit B Comp W-C PO SCH (09:00)
[2018-07-30 10:50] LABS: Vancomycin, Random 14.4 ug/mL (See Comment)
--- NOTE | 2018-07-30 11:33 | OP ---
DATE OF PROCEDURE: 07/29/2018 PROCEDURE PERFORMED: Esophagogastroduodenoscopy PREMEDICATION: Given by Anesthesiology Department. PREPROCEDURE DIAGNOSES: 1. Dark ground emesis, rule out upper gastrointestinal bleed. 2. Acute on chronic anemia. POSTPROCEDURE DIAGNOSES: 1. Severe erosive esophagitis, LA grade C. 2. Lower esophageal stricture. 3. A 3 cm hiatal hernia. 4. Otherwise normal upper endoscopy. PROCEDURE IN DETAIL: Written consents were obtained prior to procedure. After adequate sedation, forward-viewing endoscope was advanced down the esophagus under direct vision. Severely erosive esophagitis with confluent erosions was noted. There was a mild concentric stricture noted at 30 cm. The endoscope was able to traverse the stricture into the stomach and advance into the duodenum. The second portion and third portion of duodenum appeared normal. The bulb appeared normal. The pylorus was patent. The gastric antrum, body, fundus, and cardia all appeared normal. Retroflexion showed a 3-cm size hiatal hernia. There was no mucosal defect or source of bleeding identified in the stomach or duodenum. The stomach was decompressed, the instrument was then totally removed. The patient tolerated the procedure well. ASSESSMENT: 1. Severely erosive esophagitis. 2. Hiatal hernia. 3. Otherwise normal upper endoscopy without any source or sign of active bleeding. RECOMMENDATION: 1. Transition to IV Protonix 40 q.12. 2. Advance diet. 3. Continue to monitor blood count. Job ID: [id number]
--- NOTE | 2018-07-30 11:33 | CON ---
DATE OF CONSULTATION: 07/29/2018 This is Dontrell Lainez PA-C dictating a report for Chepe Herron MD. REASON FOR CONSULTATION: Draining granulation tissue,right thigh. BRIEF CLINICAL HISTORY: Clarissa is a 68-year-old white female, who is well known to our service for fragility fracture secondary to osteoporosis from long-standing renal dialysis. She has had multiple interventions to include a right hip hemiarthroplasty as well as a long femoral periarticular plate for distal femur fracture. I believe she has had an I and D of this same site before, but I will have to do a chart review to confirm . The patient has not had any fevers, nausea, vomiting, but she has been admitted to the Medicine Team for anemia and Dr. Bell is planning on doing an EGD tonight to discover the etiology of her anemia. PHYSICAL EXAMINATION: Visual inspection of the right thigh demonstrates her to have a granulous area at about mid thigh proximal third. It is directly over her incision. It does not appear erythematous, but more granulous. It is believed cultures demonstrated methicillin-resistant Staph aureus, but no deep cultures have been performed. IMPRESSION: 1. Granulation and possible fistula over a hardware, right thigh. 2. Chronic renal insufficiency and chronic dialysis. 3. Current problem is anemia. PLAN: We will recheck the patient tomorrow. I had a long discussion with her sister regarding treatment options, but currently we have no plans for orthopedic intervention due to the brittleness of this particular patient and I believe Dr. Valdez is going to start some antibiotic treatment for suppression. We will re-evaluate tomorrow, give consideration to a washout, but explantation of hardware would be probably too much for this patient to tolerate. Job ID: [id number]
--- NOTE | 2018-07-30 11:33 | CON ---
DATE OF CONSULTATION: HISTORY OF PRESENT ILLNESS: Ms. Rodriguez is a 68-year-old white female with known multiple medical problems, admitted for GI bleed. We are now being consulted for maintenance hemodialysis. Due to the GI bleed, our plan is to do heparin free dialysis for this patient. The patient has been evaluated by GI and has undergone an upper GI endoscopy this afternoon. No active bleeding was noted. The patient complaining of right and left joint pains. REVIEW OF SYSTEMS: Positive for joint pains. No nausea. No vomiting. No diarrhea. Positive for melena. No syncopal episode. No chest pain or shortness of breath. Positive for chronic pain. No headache. No diplopia. No sore throat. No fever or chills. No abdominal pain. No dysuria. No urinary frequency. MEDICATIONS: The patient is currently on the following medicines: 1. Tylenol 650 mg q.4 p.r.n. 2. Storden 7.5/325 one tab q.4h p.r.n. 3. Started on vancomycin and sliding scale. 4. Morphine sulfate 4 mg IV q.4h. p.r.n. 5. Zofran 4 mg IV q.6h. p.r.n. 6. Protonix 80 mg IV daily. 7. Zosyn 2.25 g IV q.8h. PAST MEDICAL HISTORY: 1. ESRD - currently on maintenance hemodialysis Friday, Friday, and Friday. 2. GERD. 3. Coronary artery disease. 4. DJD. 5. Status post bacteremia. 6. Status post osteomyelitis. 7. History of breast cancer. 8. Multiple recurrent MRSA infections. 9. Hypertension. 10. Depression. 11. Bladder cancer, in remission. 12. Aortic valve disease. 13. History of anxiety. 14. Dyslipidemia. PAST SURGICAL HISTORY: Status post urostomy placement, status post AV graft placement with subsequent revision, status post cuffed dialysis catheter placement, status post aortic valve replacement, status post cardiac cath, status post CABG, and status post right distal femoral fracture repair. SOCIAL HISTORY: The patient currently lives at home in [place]. Single. Originally from [place]. Lives alone. No children. Sedentary lifestyle. Status post blood transfusion. No smoking. No alcohol. No drug abuse. ALLERGIES: CEFTIN, DEMEROL AND LIPITOR. TRAUMA: Status post hip fracture. HOSPITALIZATIONS: Please see past medical history. IMMUNIZATION: Up-to-date. FAMILY HISTORY: No family history of ESRD. PHYSICAL EXAMINATION: VITAL SIGNS: Blood pressure is noted at 140/70, heart rate 70. GENERAL: Noted to be awake, in pain, not in overt distress. SKIN: Adequate turgor. HEENT: Pale conjunctivae. Anicteric sclerae. No neck mass. No carotid bruits. No JVD. CHEST: No deformities. LUNGS: Clear breath sounds. No wheezing. No crackles. HEART: Normal sinus rhythm. No gallops, or rubs. She has a grade 2/6 systolic murmur. ABDOMEN: Globular, soft, nontender. No masses. EXTREMITIES: No edema. No deformities. LABORATORY DATA: July 29, 2018; white count 9, hemoglobin 6.6. Platelet count 326,000. Sodium 138, potassium 4.9, chloride 102, carbon dioxide 22, BUN 125, creatinine 4.28, glucose 128, AST 10, ALT 11. Albumin 2.9. ASSESSMENT/PLAN: 1. Gastrointestinal bleed. Gastroenterology following. Status post upper GI endoscopy, was done with no active bleeding? Continue supportive care. P.r.n. blood transfusion. 2. Chronic anemia. We will start weekly Epogen at 7500 units subcutaneous every week. 3. End stage renal disease, due to the recent episode of gastrointestinal bleed. We will do a heparin free hemodialysis with this patient Friday, Friday, and Friday. Again, fluid removal only as tolerated. 4. Recurrent history of bacteremia. Currently, on IV antibiotics. Consider an ID reconsult. 5. Agree with current management. Job ID: [id number]
--- NOTE | 2018-07-30 11:34 | CON ---
DATE OF CONSULTATION: 07/29/2018 REASON FOR CONSULTATION: Infection, right femur fracture site. 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 In 2017, she had an MRSA bacteremia secondary to dehiscence and infection of left extremity AV fistula. About 3 years before, she had a fracture in the right femoral area after a fall, had a fixation plate placed in the femoral area. In October 2016, Dr. Herron did a bipolar hemiarthroplasty. She developed then a wound in the lateral knee area with infected hardware in the right lateral femur. The hardware was removed by Dr. Nugent and in May 12, there was concern with recurrence of infection. The wound on the lateral aspect of the right distal femur was approached. The hardware was removed. There was a pocket of abscess surrounding distal femoral hardware. Orifices were curetted and she was given meropenem and vancomycin. Eventually, the patient was switched to vancomycin, sliding scale, given for 8 weeks. The end of therapy was beginning of June. At that time, there was a pure culture of MRSA in all the different samples obtained. After that, she unfortunately did not follow up with us and now is planning to put her on suppressive therapy, but that did not occur. Now she is admitted with nausea and hematemesis. She is scheduled for an EGD tomorrow. There was noticeable drainage in the previous femoral incision right side and cultures yielded MRSA, she has been started on Bactrim. Currently, she is feeling better. Denies headaches. No dyspnea. No more vomiting. No abdominal pain. She has mild pain in the right lower extremity. PAST MEDICAL HISTORY: End-stage renal disease, hemodialysis, GERD, coronary artery disease, dyslipidemia, breast cancer in remission, MRSA bacteremia with dialysis access infection, and the previous fracture of the femur with fixation, MRSA infection which was treated for protracted period of time. PAST SURGICAL HISTORY: Mastectomy, coronary artery bypass graft surgery, nephrectomy, hysterectomy, AV fistula, ileal conduit, ileostomy for management of congenital complications of the urinary tract, aortic valve repair, right knee surgery. ALLERGIES: ATORVASTATIN, CEFUROXIME, NITROFURANTOIN, AND MEPERIDINE. FAMILY HISTORY: Parkinson disease. SOCIAL HISTORY: Never smoker. . PHYSICAL EXAMINATION: VITAL SIGNS: T-max 97.9, BP 130/71, pulse 96, respirations 26, O2 saturation 97 %. SKIN: Shows the area of pyogenic granuloma-like formation with likely fistulous opening in the mid aspect of the right lateral femur skin site, mild tenderness there. The patient has a tunneled hemodialysis catheter in the left femoral area which appears well. Peripheral IV access. Ocular movements conjugate. Oral cavity is not remarkable. NECK: Supple. LUNGS: Symmetric clear breath sounds. HEART: S1, S2. Regular rate. ABDOMEN: Soft. Not distended or tender. EXTREMITIES: She is able to move her extremities with some limitation. Pulses 1+ in dorsalis pedis. NEUROLOGICAL: She is awake, oriented. Follows commands. LABORATORY DATA: White cell count 9.0, hemoglobin 6.6, MCV 90, platelets 326, 74% neutrophils, 18% lymphocytes. Sodium 138, creatinine 4.28, AST 10, ALT 11, alkaline phosphatase 184, albumin 2.9. Microbiology with MRSA retrieved from the site of drainage. IMAGING STUDIES: Apparently, she had a CT of the femur done elsewhere which did not show any major findings. She had an MRI done a long time ago. ASSESSMENT: 1. End-stage renal disease following complications associated with congenital urinary tract abnormality, which was managed for a long time with an ileal conduit. 2. Fracture of right femur with now what appears to be a chronic osteomyelitis and a sinus tract. The alternate possibility would be a soft tissue restricted process without bone involvement. This is not clear at this point in time, will have to be clarified with further imaging studies. She did complete 8 weeks of therapy through a sliding scale given at dialysis, but did not follow up with suppressive therapy, which was my intention. The blood cultures are pending and we will discuss with Radiology what would be the best approach, if an MRI or bone scan or may be a repeat CT scan. Orthopedic surgery consult. Job ID: [id number] MTDD
--- NOTE | 2018-07-30 11:35 | PRG ---
DATE OF SERVICE: 07/30/2018 SERVICE: Renal Medicine. SUBJECTIVE: Ms. Rodriguez is a 68-year-old white female with ESRD and being followed by the Renal Service for her maintenance hemodialysis. She was admitted for GI bleed/sepsis. Currently, on IV antibiotics. GI is also following. The plan is to give her 2 units of packed RBC with dialysis. We did attempt to dialyze her yesterday, but the catheter was not fully functional. For that reason, I place Activase overnight in the catheter. No other complaints today. The knee pain is much improved with pain medications. No complaints of chest pain or shortness of breath. OBJECTIVE: VITAL SIGNS: Blood pressure 125/54, heart rate 83, respiratory rate 78, and pulse ox 96%. GENERAL: Awake, alert, comfortable, not in overt distress. SKIN: Adequate turgor. HEENT: She has slightly pale conjunctivae. Anicteric sclerae. NECK: No neck mass. No carotid bruits. No JVD. CHEST: No deformities. LUNGS: Decreased breath sounds. HEART: Normal sinus rhythm. No murmur. No gallops. No rubs. ABDOMEN: Globular, soft, nontender. No masses. EXTREMITIES: No edema. No deformities. MEDICATIONS: Medications of July 30, 2018, reviewed. LABORATORY DATA: Laboratories of July 30, 2018; hematocrit was noted at 20. On July 30, 2018, repeat hemoglobin was 6.6. Sodium 138, potassium 4.4, chloride 103, carbon dioxide 22, BUN 108, creatinine 4.05, glucose 106, and calcium 8.7. Troponin I 0.027. Blood C and S on July 29, 2018, no growth to date. ASSESSMENT AND PLAN: 1. End-stage renal disease, stable. We will plan to do a regular hemodialysis with this patient due to the recent gastrointestinal bleed. Holding off heparin. We have applied Activase with the dialysis catheter. We will then resume back a regular Friday, Friday, and Friday dialysis tomorrow. 2. Anemia. GI workup being done. GI following. 2 units of packed RBC. Please note, we have also resume back the patient's weekly Epogen regimen. 3. Sepsis - on empiric IV antibiotics. Overall, agree with current management. Job ID: [id number]
--- NOTE | 2018-07-30 11:35 | PRG ---
DATE OF SERVICE: 07/30/2018 SUBJECTIVE: This morning, she is doing better, being dialyzed. Complaining of leg pain, but no difficulty breathing. OBJECTIVE: VITAL SIGNS: Pulse 88, blood pressure 130/71, saturations are 99% on room air, respirations 20. CHEST: No wheezing or crackles. CARDIAC: Normal S1 and S2. No gallops. ABDOMEN: Soft without any masses. LABORATORY DATA: White count 8000, H and H of 6.6 and 19. She did get blood during dialysis. Creatinine is 4, BUN is 108. IMPRESSION: 1. Gastrointestinal bleed. 2. Renal failure. 3. Severe deconditioning. 4. Arthritis. PLAN: I agree with present treatment and transfusion. She can probably be transferred later to the ICU. Continue vancomycin for wound infection. Job ID: [id number]
[2018-07-30] MEDS: HYDROcodone/Acetaminophen 7.5/325 mg Tablet PO PRN ×2 (11:37→20:39)
--- NOTE | 2018-07-30 12:02 | PRG ---
DATE OF SERVICE: SUBJECTIVE: The patient is without any signs of overt bleeding. She complains having right knee pain only. There is no nausea, vomiting, or abdominal pain. PHYSICAL EXAMINATION: VITAL SIGNS: Temperature is 98.5, blood pressure 125/57, pulse of 86. GENERAL: She is alert, conversant, no distress. HEENT: Shows anicteric sclerae. Oropharynx is moist. CV: Shows normal S1 and S2. Regular rate and rhythm. CHEST: Shows a breath sound. ABDOMEN: Soft, nontender, good bowel sounds. EXTREMITIES: Show no edema. LABORATORY DATA: Hemoglobin is 6.6 this morning, WBC is 8.4, and platelet count of 270. Electrolytes within normal range. Creatinine 4.05. ASSESSMENT: 1. Acute on chronic anemia, no signs of significant upper gastrointestinal bleed on upper endoscopy yesterday. 2. Severely erosive esophagitis, suboptimally controlled with [id number] Prilosec at home. Currently on pantoprazole 40 mg p.o. b.i.d. 3. Renal failure, on maintenance hemodialysis. 4. Coronary artery disease/hypertension/hyperlipidemia. RECOMMENDATION: 1. Continue transfusion support, she is currently getting 2 units of RBC with dialysis currently. 2. Advanced to regular renal diet. 3. I discussed with the patient the option of colonoscopy to complete GI workup in view of her severe anemia without defined active bleeding source on the upper endoscopy. She is reluctant and wishes to think about it just some more. Job ID: [id number]
[2018-07-30] MEDS: Vancomycin HCl 500 MG in Sodium Chloride 0.9% 100 ML IVPB SCH ×2 (13:09→13:10)
[2018-07-30] MEDS: Piperacillin/Tazobactam 2.25 GM in Sodium Chloride 0.9% 100 ML IVPB SCH (13:10)
[2018-07-30] MEDS: Morphine 4 MG/ML VIAL SLOW IVP PRN (14:32)
[2018-07-30] MEDS: Ondansetron ODT 4 MG TAB PO PRN (14:44)
[2018-07-30] MEDS ORDERED: Heparin 10,000 UNITS/ 10 ML VIAL ONE (15:00)
--- NOTE | 2018-07-30 15:44 | RAD ---
AP PELVIS ONE VIEW: 07/30/18 HISTORY: Status post right hip arthroplasty with pain and shortening. The pelvis is considerably rotated. Total right hip replacement changes are noted without dislocation . There is some increased lucency noted around the methacrylate of the proximal femoral portion of th e prosthesis raising concern for possibility of loosening. Follow-up right hip/femur is suggested in this regard. Large left sided vascular access catheter. Right sided ostomy site. Severe bone deminer alization. Degenerative changes left hip joint. IMPRESSION: Total right hip replacement. Bone demineralization. Total right hip replacement without dislocation. Possible loosening of the femoral portion of the prosthesis, follow-up right hip and right femur. Facundo in film examination should be considered. Left femoral access catheter. Bone demineralization. Left hip arthrosis. POS: OFF
--- NOTE | 2018-07-30 16:25 | RAD ---
Exam: RIGHT FEMUR TWO VIEWS 07/30/18 HISTORY: Chronic drainage sinus from the mid thigh. FINDINGS: There does appear to be some lucency around the stem of the prosthesis. There does appear to be possi ble bone demineralization without complete erosion of the mid lateral femoral diaphysis. There are pr esumed chronic changes in the distal aspect of the femur secondary to remote injury. Tracks from prev ious internal fixation screws are noted. IMPRESSION: Mild demineralization and decreased cortical thickness along the lateral aspect of the mid right femo ral diaphysis. Cortical erosion in this region possibly due to infectious process cannot be excluded. POS: OFF
[2018-07-30] MEDS: Polyethylene Glycol 3350 17 GM Packet PO SCH (17:22)
--- NOTE | 2018-07-30 18:12 | PRG ---
DATE OF SERVICE: 07/30/2018 Consultation with Gastroenterology was completed and recommendation was for transfusion support per IV Protonix and eventual endoscopy. OBJECTIVE: VITAL SIGNS: T-max 98.5. LUNGS: Clear. HEART: S1 and S2. Regular rate. ABDOMEN: Soft. Right fistulous drainage site in the right femoral area is unchanged. LABORATORY DATA: White cell count 8.4, hemoglobin 6.6, and platelets 270 with 15.8 eosinophils. Microbiology have negative 2 sets of blood cultures thus far. Pelvis x-ray was done today and femur x-ray results showed total hip replacement with possible loosening of the femoral portion of the prosthesis and a femur x-ray was completed with mild demineralization, decreased cortical thickness and possible cortical erosion in this area. ASSESSMENT AND DISCUSSION: End-stage renal disease following complications associated with congenital urinary tract abnormality, fractured right femur with chronic osteomyelitis, sinus tract with methicillin-resistant Staphylococcus aureus. We will discuss with Orthopedic Surgery I believe either Dr. Herron or Dr. Tran and see if she is going to need repeat intervention, but I am afraid she has chronic osteo there regarding the possibility of involvement of the hardware that is not obvious in the studies that were submitted. Job ID: [id number]
[2018-07-30] MEDS: Simvastatin 20 MG TAB PO SCH (20:42)
[2018-07-30] MEDS: Loratadine 10 MG TAB PO SCH (20:43)
[2018-07-31] MEDS: Piperacillin/Tazobactam 2.25 GM in Sodium Chloride 0.9% 100 ML IVPB SCH ×3 (00:23→22:59)
[2018-07-31] MEDS: HYDROcodone/Acetaminophen 7.5/325 mg Tablet PO PRN ×3 (01:44→22:00)
[2018-07-31 04:52] LABS: #Basophils 0.1 thou/uL (0.0-0.2); #Eosinphils 1.5 thou/uL (0.0-0.7); #Lymphocytes 1.7 thou/uL (1.20-3.40); #Monocytes 0.7 thou/uL (0.11-0.59); #Neutrophils 3.4 thou/uL (1.40-6.50); %Basophils 0.9 % (0.0-1.0); %Eosinophils 19.9 % (0.0-10.0); %Lymphocytes 23.2 % (21.0-51.0); %Monocytes 9.5 % (0.0-10.0); %Neutrophils 46.5 % (42.0-75.0); Mean Corpuscular HGB CONC 33.9 g/dL (32.0-36.0); Mean Corpuscular Hemoglobin 31.1 pg (27.0-31.0); Mean Corpuscular Volume 91.7 fL (78.0-98.0); Platelet Count 232 thou/uL (130-400); RBC Distribution Width 14.5 % (11.5-14.5); Red Blood Cell (RBC) Count 2.89 mill/uL (4.20-5.40); White Blood Cell (WBC) Count 7.4 thou/uL (4.8-10.8)
[2018-07-31 05:15] LABS: Anion Gap 12 mmol/L (10-20); BUN (Urea Nitrogen) 40 mg/dL (9.8-20.1); Calc. Creatinine Clearance 17 mL/min (70-130); Calcium 8.6 mg/dL (7.8-10.44); Carbon Dioxide 26 mmol/L (23-31); Chloride 99 mmol/L (98-107); Estimated GFR-MDRD 17; Glucose 87 mg/dL (80-115); Potassium 3.7 mmol/L (3.5-5.1); Sodium 133 mmol/L (136-145)
[2018-07-31] MEDS: Calcium Acetate 667 MG CAP PO SCH ×3 (07:34→17:40)
[2018-07-31] MEDS: Docusate 100 MG CAP PO SCH ×2 (07:34→22:03)
[2018-07-31] MEDS: Folic Acid/Vit B Comp W-C PO SCH (07:34)
[2018-07-31] MEDS: Escitalopram Oxalate 20 mg Tablet PO SCH (07:35)
[2018-07-31] MEDS: buPROPion HCl 100 MG TAB PO SCH ×2 (07:35→22:59)
[2018-07-31] MEDS: Pantoprazole 40 MG VIAL IVP SCH ×2 (07:40→22:00)
[2018-07-31] MEDS: Fluticasone Propionate Nasal Spray 16 gm Bottle NASAL SCH (07:40)
[2018-07-31] MEDS: Carvedilol 6.25 MG TAB PO SCH ×2 (07:45→22:03)
--- NOTE | 2018-07-31 08:43 | PRG ---
DATE OF SERVICE: 07/31/2018 SUBJECTIVE: Clarissa Rodriguez remains in the ICU. LABORATORY DATA: H and H is stable 9 and 26, platelet count is normal. Lytes are normal. Creatinine 2.78. OBJECTIVE: GENERAL: She denies any pain or difficulty breathing. CHEST: No wheezing, crackles. CARDIAC: Normal S1, S2. No gallops. ABDOMEN: No masses. IMPRESSION: Respiratory failure, severe deconditioning, gastrointestinal bleed, previous methicillin-resistant Staphylococcus aureus sepsis. PLAN: She can be transferred out of the ICU. Pulmonary/ Critical Care will follow at a distance. Job ID: [id number]
[2018-07-31] MEDS: Ondansetron PF 4 MG/2 ML Vial IVP PRN (09:29)
[2018-07-31 14:08] LABS: Vancomycin, Random 15.5 ug/mL (See Comment)
[2018-07-31] MEDS: Polyethylene Glycol 3350 17 GM Packet PO SCH (17:40)
--- NOTE | 2018-07-31 21:22 | PRG ---
DATE OF SERVICE: 07/31/2018 SUBJECTIVE: Ms. Rodriguez is a 68-year-old white female with ESRD followed by the Renal Service for her maintenance hemodialysis. She is undergoing hemodialysis without heparin due to the recent GI bleed. She was also noted to be septic and currently on empiric IV antibiotics. No acute events noted last night. The patient is being followed up by Dr. Galvan and Dr. Valdez. She is feeling better with area of joint pains. The patient also has received blood transfusion as needed. OBJECTIVE: VITAL SIGNS: Blood pressure is noted at 118/62 with a heart rate of 83, respiratory rate 20, temperature 98.1, and pulse ox 95%. GENERAL: Noted to be awake, alert, and comfortable, not in distress. SKIN: Adequate turgor. HEENT: She has a slightly pale conjunctivae. Anicteric sclerae. NECK: No neck mass. No carotid bruits. No JVD. CHEST: No deformities. LUNGS: Clear breath sounds. HEART: Normal sinus rhythm. No murmurs. No gallops. No rubs. ABDOMEN: Globular, soft, and nontender. No masses. EXTREMITIES: No edema. No deformities. MEDICATIONS: Medications of July 31, 2018, were reviewed. LABORATORY DATA: Laboratories of July 31, 2018; white count 7.4, hemoglobin 9. Sodium 133, potassium 3.7, chloride 99, carbon dioxide 26, BUN 40, creatinine 2.78, glucose 17, and calcium is 8.6. ASSESSMENT AND PLAN: 1. End-stage renal disease, stable. We will continue current Friday, Friday, and Friday dialysis. No heparin use due to the recent gastrointestinal bleed. 2. Sepsis - on empiric IV antibiotics. ID is following. 3. Anemia, status post blood transfusion, improving hemoglobin. Continue weekly Epogen. 4. Agree with current management. Job ID: [id number]
--- NOTE | 2018-07-31 21:55 | PDOC.PN ---
- Subjective Encounter Start Date: 07/31/18 Encounter Start Time: 17:00 Feels ok. Says she has already canceled her bus for dialysis for Friday and Friday assuming she will still be here. - Objective Resuscitation Status - Order Detail: 07/29/18 09:57 Resuscitation Status Routine Resuscitation Status: FULL: Full Resuscitation Discussed with: Patient Vital Signs & Weight: Vital Signs (12 hours) Temp Pulse Resp BP BP BP BP 07/31/18 19:15 98.1 F 83 20 118/62 07/31/18 17:20 07/31/18 17:10 97.9 F 85 18 145/66 H 07/31/18 10:30 142/71 H 126/92 H Pulse Ox 07/31/18 19:15 95 07/31/18 17:20 97 07/31/18 17:10 97 07/31/18 10:30 Weight Admit Weight 122 lb Weight 122 lb 5.705 oz Most Recent Monitor Data Heart Rate from ECG 79 NIBP 126/66 NIBP BP-Mean 86 Respiration from ECG 18 SpO2 98 I&O: 07/30/18 07/31/18 08/01/18 06:59 06:59 06:59 Intake Total 972 1950 720 Output Total 1000 225 Balance -28 1725 720 Result Diagrams: 07/31/18 04:17 07/31/18 04:17 Phys Exam - Physical Examination Constitutional: NAD Respiratory: no wheezing, no rales, no rhonchi, clear to auscultation bilateral Cardiovascular: RRR, no significant murmur, no rub Gastrointestinal: soft, non-tender, no distention, positive bowel sounds Chronic RUE edema Psychiatric: normal affect, A&O x 3 Dx/Plan (1) Erosive esophagitis Code(s): K22.10 - ULCER OF ESOPHAGUS WITHOUT BLEEDING Status: Acute (2) Acute on chronic blood loss anemia Code(s): D62 - ACUTE POSTHEMORRHAGIC ANEMIA Status: Acute Comment: will try to give 2 units with dialysis today (3) MRSA infection Code(s): A49.02 - METHICILLIN RESIS STAPH INFECTION, UNSP SITE Status: Acute Comment: right hip, likely of artificial hip, orth and ID consulted, on Vanc (4) Upper GI bleed Code(s): K92.2 - GASTROINTESTINAL HEMORRHAGE, UNSPECIFIED Status: Acute Comment: errosive esophagitis on EGD, Hgb still low, transfusion never given last night, will need to transfuse 2 more units (5) CAD (coronary artery disease) Code(s): I25.10 - ATHSCL HEART DISEASE OF [place] CORONARY ARTERY W/O ANG PCTRS Status: Chronic (6) ESRD (end stage renal disease) on dialysis Code(s): N18.6 - END STAGE RENAL DISEASE; Z99.2 - DEPENDENCE ON RENAL DIALYSIS Status: Chronic Comment: Maintenance HD (7) Hypertension Code(s): I10 - ESSENTIAL (PRIMARY) HYPERTENSION Status: Chronic Qualifiers: - Plan * MRSA from sinus track at right hip. * Appears to be chronic osteo. * Ortho does not feel patient is a candidate for aggressive explantation of hardware. * Will coordinate with ID for potential alternatives. * Continue IV VAnc and Zosyn. * No acute bleeding source found on UGI endoscopy. Declined colonoscopy.
[2018-07-31] MEDS: Simvastatin 20 MG TAB PO SCH (22:01)
[2018-07-31] MEDS: Loratadine 10 MG TAB PO SCH (22:03)
[2018-07-31] MEDS: Temazepam 15 MG CAP PO PRN (22:59)
--- NOTE | 2018-08-01 00:02 | PRG ---
DATE OF SERVICE: 07/31/2018 SUBJECTIVE: The patient was seen in hemodialysis earlier today. She is without complaint except for her right knee. She tolerates diet well. There is no nausea, vomiting, or abdominal pain. There are no signs of any overt bleeding. PHYSICAL EXAMINATION: VITAL SIGNS: Temperature is 97.9, blood pressure 145/66, pulse of 87. GENERAL: She is alert, in no distress. HEENT: Eye exam shows anicteric sclerae. Oropharynx is moist. CV: Shows normal S1 and S2. Regular rate and rhythm. CHEST: Shows clear bilateral breath sounds. ABDOMEN: Soft, nontender. She has active bowel sounds. EXTREMITY: Shows no edema. LABORATORY DATA: WBC is 7.4, hemoglobin 9.0, and platelet count of 232. Electrolytes within normal range. Creatinine is 2.78, BUN of 40. ASSESSMENT: 1. Acute on chronic anemia, status post transfusion, now with hemoglobin of 7. No signs of active bleeding seen on EGD. 2. Gastroesophageal reflux disease with severely erosive esophagitis, clinically doing well on pantoprazole 40 mg b.i.d. 3. Renal failure, on hemodialysis. 4. Coronary artery disease/hypertension/hyperlipidemia. 5. Right knee osteomyelitis. RECOMMENDATIONS: No new recommendation from GI standpoint. The patient is doing well without any signs of bleeding. Continue with pantoprazole 40 mg p.o. b.i.d. GI will sign off for now, please call if needed. Job ID: [id number] MTDD
[2018-08-01] MEDS: HYDROcodone/Acetaminophen 7.5/325 mg Tablet PO PRN ×2 (06:31→20:21)
[2018-08-01] MEDS: Folic Acid/Vit B Comp W-C PO SCH (08:42)
[2018-08-01] MEDS: Docusate 100 MG CAP PO SCH ×2 (08:42→20:20)
[2018-08-01] MEDS: Calcium Acetate 667 MG CAP PO SCH ×3 (08:42→16:52)
[2018-08-01] MEDS: Escitalopram Oxalate 20 mg Tablet PO SCH (08:42)
[2018-08-01] MEDS: Carvedilol 6.25 MG TAB PO SCH ×2 (08:42→20:19)
[2018-08-01] MEDS: buPROPion HCl 100 MG TAB PO SCH ×2 (08:42→20:18)
[2018-08-01] MEDS: Pantoprazole 40 MG VIAL IVP SCH ×2 (08:43→20:20)
[2018-08-01] MEDS: Fluticasone Propionate Nasal Spray 16 gm Bottle NASAL SCH (08:45)
[2018-08-01 09:18] LABS: #Basophils 0.1 thou/uL (0.0-0.2); #Eosinphils 1.2 thou/uL (0.0-0.7); #Lymphocytes 1.5 thou/uL (1.20-3.40); #Monocytes 0.6 thou/uL (0.11-0.59); #Neutrophils 3.9 thou/uL (1.40-6.50); %Eosinophils 17.1 % (0.0-10.0); %Lymphocytes 20.1 % (21.0-51.0); %Monocytes 7.8 % (0.0-10.0); Hemoglobin 9.9 g/dL (12.0-16.0); Mean Corpuscular HGB CONC 32.7 g/dL (32.0-36.0); Mean Corpuscular Hemoglobin 31.2 pg (27.0-31.0); Mean Corpuscular Volume 95.3 fL (78.0-98.0); Mean Platelet Volume 7.6 fL (7.4-10.4); Platelet Count 248 thou/uL (130-400); RBC Distribution Width 14.6 % (11.5-14.5); Red Blood Cell (RBC) Count 3.17 mill/uL (4.20-5.40); White Blood Cell (WBC) Count 7.2 thou/uL (4.8-10.8)
[2018-08-01] MEDS ORDERED: Heparin 1,000 UNITS/ML VIAL ONE (09:52)
[2018-08-01] MEDS: Piperacillin/Tazobactam 2.25 GM in Sodium Chloride 0.9% 100 ML IVPB SCH ×2 (10:46→22:15)
[2018-08-01] MEDS ORDERED: Lidocaine 1% w/Epinephrine 1:100K 20 ML VIAL ONE (11:29)
--- NOTE | 2018-08-01 12:16 | PRG ---
DATE OF SERVICE: 08/01/2018 SUBJECTIVE: This is a 68-year-old female with chronic kidney disease, on dialysis. She came to the hospital because of vomiting blood. She underwent EGD and was found to have severe erosive esophagitis. No active bleeding seen at the time of endoscopy. She is on PPI. She has had multiple black tarry stools today because of the above reason. The patient appears very comfortable. Denies abdominal pain, nausea, or vomiting. Apparently, she has had 5 tarry stools today. She had a stat CBC done today, which showed no drop in hemoglobin. Yesterday, CBC, WBC 7400, hemoglobin 9, today hemoglobin up to 9.9, and hematocrit 30.2. OBJECTIVE: VITAL SIGNS: Afebrile. Pulse is 78 and blood pressure 118/62. CARDIOVASCULAR: First and second heart sounds heard. LUNGS: Clear to auscultation. ABDOMEN: Soft. Abdomen is nondistended. No organomegaly or masses. CLINICAL IMPRESSION: 1. Upper gastrointestinal bleeding, EGD showed severe erosive esophagitis. 2. Anemia due to blood loss stable and that is not dropping anymore. The patient is reassured, and we will continue PPI and follow up H and H. Job ID: [id number]
--- NOTE | 2018-08-01 12:30 | PRG ---
DATE OF SERVICE: 08/01/2018 SUBJECTIVE: Ms. Rodriguez is a 68-year-old white female, who was admitted for GI bleed. We are following her up for her maintenance hemodialysis. She underwent hemodialysis without heparin yesterday. She did well. She is feeling better. No other complaints today. She has also been followed up by GI. No complaints of chest pain or shortness of breath. OBJECTIVE: VITAL SIGNS: Blood pressure is 138/70, heart rate 78, respiratory rate 18, temperature 98.5, pulse ox 93%. GENERAL: Awake, alert, comfortable, not in overt distress. SKIN: Adequate turgor. HEENT: Pinkish conjunctivae. Anicteric sclerae. No neck mass. No carotid bruits. No JVD. CHEST: No deformities. LUNGS: Clear breath sounds. No wheezing. No crackles. HEART: Normal sinus rhythm. No murmurs. No gallops. No rubs. ABDOMEN: Globular. Soft and nontender. No masses. EXTREMITIES: No edema. No deformities. MEDICATIONS: Medications of August 01, 2018, reviewed. LABORATORY DATA: Laboratories on August 01, 2018, white count 7.2, hemoglobin 9.9. On July 31, 2018, sodium 133, potassium 3.7, chloride 99, carbon dioxide 26, BUN 40, creatinine 2.78. ASSESSMENT AND PLAN: 1. Anemia, much improved with blood transfusion, continuing weekly Epogen with this patient. 2. End-stage renal disease, stable, tolerating current hemodialysis regimen, using no heparin due to the recent GI bleed. 3. Questionable sepsis, the patient is noted to be on empiric IV antibiotics, doing well. No indication for any emergent hemodialysis today. Job ID: [id number]
--- NOTE | 2018-08-01 16:06 | PRG ---
DATE OF SERVICE: SUBJECTIVE: Ms. Rodriguez is a 68-year-old female, who has end-stage renal disease, on maintenance dialysis. Document Image Technician is Dr. Tulio Rucker. The patient has exhausted her upper extremity access. She has had numerous fistulas and grafts placed, which were thrombosed. She developed a graft infection of left arm requiring removal of her PTFE graft. I explored her left axilla and she does not have venous outflow for dialysis access in her either upper extremity. She does not have internal jugular vein access. I have tried access these previously and resulted in placement of left femoral vein access. She has had positive MRSA blood cultures from the dialysis center. Blood cultures here from 07/29/2018 are negative today. The patient is on vancomycin and Zosyn. On 09/16/2017, the patient had removal of a left upper arm PTFE graft that was infected. She had numerous stents present. She had a left femoral vein dialysis catheter placed. The patient has an ileal conduit and is not a candidate for peritoneal dialysis. She has had excision of right upper arm dialysis graft. I have spoken with her previously encouraging her the importance of having a thigh graft. She has procrastinated this. I was called by Wound Care today as they were consulted for left upper extremity wound. They asked me to look at that. She has exposed PTFE graft segment retained from prior excision. There is no evidence of infection. No purulence. No redness. This is not the source of her MRSA. The patient tells me that they think her hip prosthesis is the source of the MRSA bacteremia on outpatient cultures. I have told her most likely it is due to her catheter, which has been present for more than 8 months. In my opinion, the patient should have dialysis. This catheter should be removed. She should have a catheter free interval for 1 to 2 days prior to placing a new catheter and then at some time in the future have placement of a more permanent dialysis access probably in her right thigh. The patient has an appointment with out of town surgeon for what sounds to be attempts of placement of a HeRO graft. I have been unable to access her internal jugular veins in the past. I do not think that she is a candidate for a HeRO graft, but they can attempt this. The patient has told the dialysis center technicians and nurses and then informed me today after I removed the segment of graft that she is uncomfortable with my care and wants to seek care elsewhere. Therefore, I will not be seeing her again. I have discussed with Dr. Rucker. I would recommend treating the left lower extremity 1.5 cm open wound with washing with soap and water daily and applying wet-to-dry dressings and antibiotic ointment and Band-Aid. Follow up in my office as needed. She can seek dialysis access care at her physician identified referred by the dialysis center. Please call if I can be of other assistance. Job ID: [id number]
[2018-08-01] MEDS: Polyethylene Glycol 3350 17 GM Packet PO SCH (16:52)
--- NOTE | 2018-08-01 17:26 | PRG ---
DATE OF SERVICE: 08/01/2018 SUBJECTIVE: Ms. Rodriguez is feeling better. No dyspnea or chest pain. No abdominal pain. Noticed decrease in drainage in the right thigh. OBJECTIVE: VITAL SIGNS: With a T-max of 98.5. Other vital signs are normal. GENERAL: Appears chronically ill, alert and oriented, in no distress. HEENT: Ocular movements conjugate. Pale conjunctivae. LUNGS: Clear. HEART: S1 and S2. Regular rate. ABDOMEN: Soft, not distended. SKIN: Right thigh lateral aspect still with the fistulous opening as well as a nodular structure, which looks more like a pyogenic granuloma. LABORATORY DATA: White cell count 7.2, hemoglobin 9.9, platelets 248. Sodium 133, creatinine 2.78. Microbiology with previous findings with MRSA from the thigh drainage. X-ray showed area of thinning of the cortical area in the femur, right at the site of the fistulous opening, probably chronic osteomyelitis. 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 It looks like Dr. Nugent saw the patient and I do not see a note yet, but we will go ahead and order a CT of her femur and see if we can determine more clearly if there is bone destruction or not; if so, then she would require surgical debridement and resumption of IV antimicrobial therapy towards the methicillin-resistant Staphylococcus aureus isolate. Job ID: [id number]
[2018-08-01 18:22] LABS: #Basophils 0.1 thou/uL (0.0-0.2); #Eosinphils 1.1 thou/uL (0.0-0.7); #Lymphocytes 1.4 thou/uL (1.20-3.40); #Monocytes 0.6 thou/uL (0.11-0.59); #Neutrophils 5.1 thou/uL (1.40-6.50); %Basophils 1.1 % (0.0-1.0); %Eosinophils 12.8 % (0.0-10.0); %Lymphocytes 17.2 % (21.0-51.0); %Monocytes 7.4 % (0.0-10.0); %Neutrophils 61.4 % (42.0-75.0); Hemoglobin 9.7 g/dL (12.0-16.0); Mean Corpuscular HGB CONC 32.7 g/dL (32.0-36.0); Mean Corpuscular Hemoglobin 31.1 pg (27.0-31.0); Mean Corpuscular Volume 95.2 fL (78.0-98.0); Mean Platelet Volume 8.1 fL (7.4-10.4); Platelet Count 248 thou/uL (130-400); RBC Distribution Width 14.5 % (11.5-14.5); Red Blood Cell (RBC) Count 3.13 mill/uL (4.20-5.40); White Blood Cell (WBC) Count 8.4 thou/uL (4.8-10.8)
[2018-08-01] MEDS: Simvastatin 20 MG TAB PO SCH (20:18)
[2018-08-01] MEDS: Loratadine 10 MG TAB PO SCH (20:20)
[2018-08-01] MEDS: Temazepam 15 MG CAP PO PRN (22:14)
--- NOTE | 2018-08-01 22:23 | PDOC.PN ---
- Subjective Encounter Start Date: 08/01/18 Encounter Start Time: 10:00 Feeling better today. More energy and better appetite. - Objective Resuscitation Status - Order Detail: 07/29/18 09:57 Resuscitation Status Routine Resuscitation Status: FULL: Full Resuscitation Discussed with: Patient Vital Signs & Weight: Vital Signs (12 hours) Temp Pulse Resp BP BP Pulse Ox 08/01/18 20:19 133/74 08/01/18 20:00 98.2 F 83 16 133/74 96 08/01/18 16:16 98.1 F 83 20 101/53 L 96 08/01/18 11:28 97.8 F 74 18 127/69 96 Weight Admit Weight 122 lb Weight 122 lb 5.705 oz Most Recent Monitor Data Heart Rate from ECG 79 NIBP 126/66 NIBP BP-Mean 86 Respiration from ECG 18 SpO2 98 I&O: 07/31/18 08/01/18 08/02/18 06:59 06:59 06:59 Intake Total 1950 1270 Output Total 225 375 Balance 1725 895 Result Diagrams: 08/01/18 18:16 07/31/18 04:17 Phys Exam - Physical Examination Constitutional: NAD Respiratory: no wheezing, no rales, no rhonchi Cardiovascular: RRR II/ M Gastrointestinal: soft, non-tender, no distention Musculoskeletal: no edema Right hip lesion covered. Psychiatric: normal affect, A&O x 3 Dx/Plan (1) Erosive esophagitis Code(s): K22.10 - ULCER OF ESOPHAGUS WITHOUT BLEEDING Status: Acute (2) Acute on chronic blood loss anemia Code(s): D62 - ACUTE POSTHEMORRHAGIC ANEMIA Status: Acute Comment: will try to give 2 units with dialysis today (3) MRSA infection Code(s): A49.02 - METHICILLIN RESIS STAPH INFECTION, UNSP SITE Status: Acute Comment: right hip, likely of artificial hip, orth and ID consulted, on Vanc (4) Upper GI bleed Code(s): K92.2 - GASTROINTESTINAL HEMORRHAGE, UNSPECIFIED Status: Acute Comment: errosive esophagitis on EGD, Hgb still low, transfusion never given last night, will need to transfuse 2 more units (5) CAD (coronary artery disease) Code(s): I25.10 - ATHSCL HEART DISEASE OF [place] CORONARY ARTERY W/O ANG PCTRS Status: Chronic (6) ESRD (end stage renal disease) on dialysis Code(s): N18.6 - END STAGE RENAL DISEASE; Z99.2 - DEPENDENCE ON RENAL DIALYSIS Status: Chronic Comment: Maintenance HD (7) Hypertension Code(s): I10 - ESSENTIAL (PRIMARY) HYPERTENSION Status: Chronic Qualifiers: - Plan * Complicated with patient. * Has sinus tract draining MRSA at right hip. * Ortho consulted. * ID consulted. * They are working to determine if she needs surgical intervention to explant the right hip hardware to manage the infection. * Surgery concerned that the infection could be seeding from her dialysis catheter and recommends removal with subsequent replacement. * Continuing antibiotics in the interim. * Continuing hemodialysis.
[2018-08-02] MEDS: Folic Acid/Vit B Comp W-C PO SCH (08:23)
[2018-08-02] MEDS: buPROPion HCl 100 MG TAB PO SCH ×2 (08:23→20:20)
[2018-08-02] MEDS: Calcium Acetate 667 MG CAP PO SCH ×3 (08:23→16:35)
[2018-08-02] MEDS: Carvedilol 6.25 MG TAB PO SCH ×2 (08:23→20:19)
[2018-08-02] MEDS: Escitalopram Oxalate 20 mg Tablet PO SCH (08:23)
[2018-08-02] MEDS: Fluticasone Propionate Nasal Spray 16 gm Bottle NASAL SCH (08:24)
[2018-08-02] MEDS: HYDROcodone/Acetaminophen 7.5/325 mg Tablet PO PRN ×3 (08:27→20:40)
[2018-08-02] MEDS: Pantoprazole 40 MG VIAL IVP SCH ×2 (08:29→20:18)
[2018-08-02] MEDS: Docusate 100 MG CAP PO SCH ×2 (08:30→20:19)
[2018-08-02] MEDS: Ondansetron ODT 4 MG TAB PO PRN (08:34)
--- NOTE | 2018-08-02 10:07 | PRG ---
DATE OF SERVICE: 08/02/2018 SUBJECTIVE: The patient does not feel quite as well today as she did yesterday. Does not have the same level of energy. She has no specific complaints. OBJECTIVE: VITAL SIGNS: Temperature 98.0, pulse 81, respirations 18, O2 saturation 94% on room air, BP 131/61. GENERAL APPEARANCE: Age-appropriate female, in no distress. She is awake and alert, generally pale. HEENT: PERRL. No OP lesions. NECK: Supple and symmetric. HEART: Regular with 2/6 murmur. LUNGS: Clear. ABDOMEN: Soft, nontender, and nondistended. Stoma appears to be functioning properly. EXTREMITIES: Significant chronic right upper extremity edema. She has a dialysis catheter in the left thigh. IMPRESSION AND PLAN: 1. 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 The patient is on appropriate antibiotics and followed by Infectious Disease. Concern at this point is whether she has infected hardware. Discussed with Ortho Service, the plan is to see if this will resolve with the antibiotics and if not, consider followup intervention which they will likely reassess tomorrow. 2. Gastrointestinal bleed, stable. No specific sources have been identified. The patient did have upper endoscopy, but only revealed nonbleeding erosive esophagitis and the patient has declined further evaluation at this time. 3. Erosive esophagitis. Continue with the PPI. 4. Acute on chronic blood loss anemia, stable. 5. Coronary artery disease, chronic, stable. 6. End-stage renal disease, on dialysis. Dr. Morris saw the patient yesterday for some retained material in the left upper extremity where a catheter had been placed previously. The patient has catheter in the left groin area. Unfortunately with the methicillin-resistant Staphylococcus aureus infection, there is concern that catheter may be either the source or colonized and his recommendation was to discontinue the catheter, leave it out for a couple of days and then replace it potentially on the right side. The patient does not like that idea and does not want to follow up with that plan or with Dr. Morris at this point. 7. Hypertension, stable. Job ID: [id number]
[2018-08-02] MEDS ORDERED: Loperamide HCl 2 MG CAP PO PRN (10:19)
--- NOTE | 2018-08-02 11:59 | CT ---
CT Lower Ext Rt W Con History: Thinning cortical area with chronic draining sinus Comparison: Femur radiograph 07/30/2018 Findings: Incomplete evaluation of the right lower quadrant ostomy. There is moderate volume free flu id within the pelvis. There is an abnormal sinus tract from the anterior femoral cortex [place] through a abscess which measur es 1.6 x 0.8 x 6 cm. There is intramuscular abscess extending into the vastus intermedius and vastus medialis muscles. Abnormal enhancing myositis. There is extensive superficial and deep soft ti ssue swelling. Old distal femoral fracture. There is loss of normal cortical integrity along the posterior femoral s tem with extensive circumferential perihardware hardware lucency. Obturator ring is intact. The femoral artery is patent. Impression: 1. Intramedullary abscess surrounding the distal femoral stem with anterior cortical breakthrough wit h intramuscular abscess as described along the anterior margin of the femur. There is cortical breakthrough anteriorly as well as posteriorly with loss of normal cortical integrity indicating loos ening. 2. Myositis of the vastus intermedius and medialis muscles. 3. Abnormal free fluid within the pelvis. CT abdomen pelvis may be beneficial.
--- NOTE | 2018-08-02 12:09 | PRG ---
DATE OF SERVICE: 08/02/2018 SUBJECTIVE: Ms. Rodriguez is a 68-year-old white female with ESRD and followed up by the Renal Service for maintenance hemodialysis. She is tolerating her dialysis. She has been evaluated by the Infectious Disease Service. She is being followed up due to her chronic osteomyelitis with sinus tract with MRSA being shown. No new complaints today except for some diarrhea. Stools will be checked for leukocytosis. In addition, I have given her Imodium. No complaints of chest pain or shortness of breath. OBJECTIVE: VITAL SIGNS: Blood pressure is noted at 131/61, heart rate 81, respiratory rate 18, temperature 98, pulse ox 94% GENERAL: Awake, alert, comfortable, not in distress. SKIN: Adequate turgor. HEENT: She has pinkish conjunctivae. Anicteric sclerae. NECK: No neck mass. No carotid bruits. No JVD. CHEST: No deformities. LUNGS: Clear breath sounds. No wheezing. No crackles. HEART: Normal sinus rhythm. No murmur. No gallop. No rub. ABDOMEN: Globular, soft, and nontender. No masses. Positive for ostomy. EXTREMITIES: No edema. No deformities. MEDICATIONS: Medications of August 02, 2018, were reviewed. LABORATORY DATA: Laboratories of July 31, 2018; sodium 133, potassium 3.7, chloride 99, carbon dioxide 26, BUN 40, creatinine 2.78, calcium 8.6. August 01, 2018; white count 8.4, hemoglobin 9.7. ASSESSMENT AND PLAN: 1. Chronic anemia. Continuing weekly Epogen. 2. End-stage renal disease, stable. We will continue current hemodialysis regimen on Friday, Friday, and Friday. Fluid removal only as tolerated. 3. Chronic osteomyelitis. Continue IV vancomycin. ID following. Recommendation was made for the patient to have imaging of her right lower extremity - CT scan tomorrow. 4. Nonfunctioning arteriovenous graft - the patient has a future appointment with an outside surgeon to evaluate her for dialysis access. Overall, agree with current management. We will recheck CBC and basic metabolic panel in a.m. Job ID: [id number]
[2018-08-02] MEDS: Piperacillin/Tazobactam 2.25 GM in Sodium Chloride 0.9% 100 ML IVPB SCH (12:48)
--- NOTE | 2018-08-02 16:07 | PRG ---
DATE OF SERVICE: 08/02/2018 SUBJECTIVE: Feeling about the same except for some loose stool. No cough. Less drainage in the right femur/thigh area. OBJECTIVE: VITAL SIGNS: Temperature max 98.5, blood pressure 130/60, pulse 81, respirations 18, O2 saturation 94%. The area of fistulous opening about the same with no drainage noted. LUNGS: Symmetric air entry. HEART: S1, S2. Regular rate. ABDOMEN: Soft, not distended. Bowel sounds are present. LABORATORY DATA: White cell count 8.4, hemoglobin 9.7, platelets 248. Creatinine 2.78. DIAGNOSTIC DATA: CT of the lower extremity demonstrated intramedullary abscess surrounding the distal femoral stem with anterior cortical breakthrough, intramuscular abscess, some free fluid in the pelvis which appeared to be abnormal. ASSESSMENT AND DISCUSSION: End-stage renal disease following complications associated with congenital urinary tract abnormality, prior fracture of right femur with chronic osteomyelitis, sinus tract formation secondary to methicillin-resistant Staphylococcus aureus. The CT shows an intraosseous abscess with extension into the surrounding tissues and then a fistulous tract. We will discuss with Orthopedic Surgery. Continue vancomycin. Discontinue remainder antimicrobials. Job ID: [id number]
[2018-08-02] MEDS: Polyethylene Glycol 3350 17 GM Packet PO SCH (16:36)
[2018-08-02] MEDS: Simvastatin 20 MG TAB PO SCH (20:18)
[2018-08-02] MEDS: Loratadine 10 MG TAB PO SCH (20:19)
[2018-08-02] MEDS: Temazepam 15 MG CAP PO PRN (21:30)
[2018-08-03 05:54] LABS: #Basophils 0.1 thou/uL (0.0-0.2); #Lymphocytes 1.6 thou/uL (1.20-3.40); #Monocytes 0.5 thou/uL (0.11-0.59); #Neutrophils 4.4 thou/uL (1.40-6.50); %Basophils 1.5 % (0.0-1.0); %Eosinophils 13.3 % (0.0-10.0); %Lymphocytes 20.9 % (21.0-51.0); %Monocytes 6.4 % (0.0-10.0); %Neutrophils 57.8 % (42.0-75.0); Hemoglobin 9.5 g/dL (12.0-16.0); Mean Corpuscular HGB CONC 31.6 g/dL (32.0-36.0); Mean Corpuscular Hemoglobin 30.8 pg (27.0-31.0); Mean Corpuscular Volume 97.7 fL (78.0-98.0); Mean Platelet Volume 8.2 fL (7.4-10.4); Platelet Count 256 thou/uL (130-400); RBC Distribution Width 14.5 % (11.5-14.5); Red Blood Cell (RBC) Count 3.07 mill/uL (4.20-5.40); White Blood Cell (WBC) Count 7.5 thou/uL (4.8-10.8)
[2018-08-03 06:05] LABS: Anion Gap 17 mmol/L (10-20); BUN (Urea Nitrogen) 46 mg/dL (9.8-20.1); Calc. Creatinine Clearance 10 mL/min (70-130); Calcium 8.4 mg/dL (7.8-10.44); Carbon Dioxide 19 mmol/L (23-31); Chloride 99 mmol/L (98-107); Estimated GFR-MDRD 9; Glucose 72 mg/dL (80-115); Potassium 4.6 mmol/L (3.5-5.1); Sodium 130 mmol/L (136-145)
[2018-08-03] MEDS: HYDROcodone/Acetaminophen 7.5/325 mg Tablet PO PRN ×3 (06:40→20:40)
[2018-08-03 08:57] LABS: Vancomycin, Random 13.5 ug/mL (See Comment)
[2018-08-03] MEDS ORDERED: Heparin 10,000 UNITS/ 10 ML VIAL ONE (09:00)
--- NOTE | 2018-08-03 09:29 | PRG ---
DATE OF SERVICE: 08/03/2018 SUBJECTIVE: Ms. Rodriguez is a 68-year-old white female with ESRD, who was admitted due to a GI bleed. She is now stable. Further workup suggested that this patient has ongoing infection. She had a CT scan of her lower right extremity. It showed intramedullary abscess surrounding the distal femoral stem with anterior cortical breakthrough with intramuscular abscess. ID is following. The plan is for it to be drained. No other complaints today. She is feeling better. She continues to be on empiric antibiotics. No complaints of chest pain or shortness of breath. OBJECTIVE: VITAL SIGNS: Blood pressure 131/62, heart rate 74, respiratory rate 16, temperature 97.9, and pulse ox 96%. GENERAL: Awake, alert, comfortable, not in overt distress. SKIN: Adequate turgor. HEENT: Pinkish conjunctivae. Anicteric sclerae. NECK: No neck mass. No carotid bruits. No JVD. CHEST: No deformities. LUNGS: Clear breath sounds. HEART: Normal sinus rhythm. No murmur. No gallops. No rubs. ABDOMEN: Globular, soft, and nontender. No masses. EXTREMITIES: No edema. No deformities. MEDICATIONS: Medications of 08/03/2018 were reviewed. LABORATORY DATA: On 08/03/2018: White count 7.5 and hemoglobin 9.5. Sodium 130, potassium 4.6, chloride 99, carbon dioxide 19, BUN 46, creatinine 4.67, glucose 72, and calcium 8.4. ASSESSMENT AND PLAN: 1. End-stage renal disease, currently undergoing hemodialysis, tolerating said treatment. Fluid removal only as tolerated. We will continue current Friday, Friday, and Friday hemodialysis regimen. 2. Anemia, on weekly Epogen. 3. Left and right extremity abscess - CAT scan showed intramedullary abscess with breakthrough and with intramuscular abscess noted. ID following. Surgical consult will be done for possible drainage of this abscess. Overall, I agree with current management. Job ID: [id number]
--- NOTE | 2018-08-03 10:07 | PRG ---
DATE OF SERVICE: 08/03/2018 SUBJECTIVE: Awake and responsive, being dialyzed. OBJECTIVE: VITAL SIGNS: Saturations are 96% on room air, respiratory rate 18, temperature 97, and blood pressure 136/62. No longer symptomatic. She is being dialyzed. LABORATORY DATA: White count 7000. Creatinine is 4.6. IMPRESSION: Sepsis syndrome, gastrointestinal bleed, severe deconditioning, and renal failure. PLAN: Pulmonary will follow at a distance, please call if needed. Job ID: [id number]
[2018-08-03] MEDS: Vancomycin HCl 500 MG in Sodium Chloride 0.9% 100 ML IVPB SCH (10:29)
[2018-08-03] MEDS ORDERED: Labetalol HCl 100 MG/20 ML VIAL ONE (10:51)
--- NOTE | 2018-08-03 12:28 | PRG ---
DATE OF SERVICE: 08/02/2018 SUBJECTIVE: This is a 68-year-old female who came to the hospital with hematemesis and upper GI bleeding. EGD was done by Dr. Bell and was found to have severe erosive esophagitis. The patient had been having some black tarry stool yesterday. She had multiple stools yesterday. She had a stat CBC done yesterday morning, which did reveal no drop in blood count. The hemoglobin is 9.9. She had another hemoglobin done last night it was 9.8. The patient had no stool today. There is no nausea or vomiting. She offers no complaints. OBJECTIVE: GENERAL: She appears very comfortable. VITAL SIGNS: Afebrile, pulse is 81, and blood pressure 131/61. CARDIOVASCULAR: Within normal limits. LUNGS: Within normal limits. ABDOMEN: Abdomen is soft. Abdomen is nontender. No organomegaly or masses. CLINICAL IMPRESSION: 1. Erosive esophagitis. 2. Tarry stool, mostly she is passing some old blood as the blood count remains stable at . RECOMMENDATIONS: 1. Continue PPI. 2. We will sign off from today, and if new problems, please call us back. Job ID: [id number]
[2018-08-03] MEDS: Calcium Acetate 667 MG CAP PO SCH ×3 (13:54→17:43)
[2018-08-03] MEDS: buPROPion HCl 100 MG TAB PO SCH ×2 (13:54→20:39)
[2018-08-03] MEDS: Folic Acid/Vit B Comp W-C PO SCH (13:55)
[2018-08-03] MEDS: Fluticasone Propionate Nasal Spray 16 gm Bottle NASAL SCH (13:55)
[2018-08-03] MEDS: Carvedilol 6.25 MG TAB PO SCH ×2 (13:55→20:38)
[2018-08-03] MEDS: Escitalopram Oxalate 20 mg Tablet PO SCH (13:55)
[2018-08-03] MEDS: Docusate 100 MG CAP PO SCH ×2 (13:56→20:39)
[2018-08-03] MEDS: Pantoprazole 40 MG VIAL IVP SCH ×2 (13:56→20:38)
--- NOTE | 2018-08-03 15:00 | OP ---
DATE OF PROCEDURE: 08/01/2018 PREOPERATIVE DIAGNOSES: Retained PTFE segment in left upper arm from previously excised infected graft; history methicillin-resistant Staphylococcus aureus, outpatient positive cultures, on vancomycin and Zosyn; longstanding cuffed-tunneled dialysis catheter, left groin, probably responsible for methicillin-resistant Staphylococcus aureus sepsis. POSTOPERATIVE DIAGNOSES: Retained PTFE segment in left upper arm from previously excised infected graft; history methicillin-resistant Staphylococcus aureus, outpatient positive cultures, on vancomycin and Zosyn; longstanding cuffed-tunneled dialysis catheter, left groin, probably responsible methicillin-resistant Staphylococcus aureus sepsis. PROCEDURE PERFORMED: Removal of non-infected exposed PTFE segment, left upper arm, 1% Xylocaine with epinephrine. DESCRIPTION OF PROCEDURE: With the patient at bedside, where I was called by Wound Care, I inspected the wound. She had a segment of PTFE graft retained from previous resection of infected graft segment. Initially, I attempted removal of this, but she had too much discomfort. Thus, area was prepared with alcoholic and a 1% Xylocaine with epinephrine, infiltrated into the skin and subcutaneous tissue through a 27-gauge needle, and the graft segment was removed without evidence of purulence, cellulitis, or infection. The wound was left open, healing by secondary intention. No other appreciable retained graft appreciated. No evidence of infection in left upper arm. Wound Care recommended wash the wound daily with soap and water, apply antibiotic saline, wet-to-dry dressing, and if they heal, convert to antibiotic ointment and Band-Aid. I will see her as needed and she wants to see dialysis access care elsewhere. Job ID: [id number]
--- NOTE | 2018-08-03 16:18 | PDOC.PN ---
- Subjective Encounter Start Date: 08/03/18 Encounter Start Time: 10:20 Feels a little better today. - Objective Resuscitation Status - Order Detail: 07/29/18 09:57 Resuscitation Status Routine Resuscitation Status: FULL: Full Resuscitation Discussed with: Patient Vital Signs & Weight: Vital Signs (12 hours) Temp Pulse Resp BP BP Pulse Ox 08/03/18 13:57 82 108/68 08/03/18 13:55 110/68 08/03/18 08:00 97.9 F 82 18 136/62 96 08/03/18 04:50 97.9 F 74 16 131/62 96 Weight Admit Weight 122 lb Weight 122 lb 5.705 oz Most Recent Monitor Data Heart Rate from ECG 79 NIBP 126/66 NIBP BP-Mean 86 Respiration from ECG 18 SpO2 98 I&O: 08/02/18 08/03/18 08/04/18 06:59 06:59 06:59 Intake Total 570 470 Output Total 250 550 Balance 320 -80 Result Diagrams: 08/03/18 05:07 08/03/18 05:07 Phys Exam - Physical Examination Constitutional: NAD Respiratory: no wheezing, no rales, no rhonchi, clear to auscultation bilateral Cardiovascular: RRR II/ M Gastrointestinal: soft, non-tender, no distention RUE edema, chronic. Neurological: non-focal Psychiatric: normal affect Skin: normal turgor Dx/Plan (1) Erosive esophagitis Code(s): K22.10 - ULCER OF ESOPHAGUS WITHOUT BLEEDING Status: Acute (2) Acute on chronic blood loss anemia Code(s): D62 - ACUTE POSTHEMORRHAGIC ANEMIA Status: Acute Comment: will try to give 2 units with dialysis today (3) MRSA infection Code(s): A49.02 - METHICILLIN RESIS STAPH INFECTION, UNSP SITE Status: Acute Comment: right hip, likely of artificial hip, orth and ID consulted, on Vanc (4) Upper GI bleed Code(s): K92.2 - GASTROINTESTINAL HEMORRHAGE, UNSPECIFIED Status: Acute Comment: errosive esophagitis on EGD, Hgb still low, transfusion never given last night, will need to transfuse 2 more units (5) CAD (coronary artery disease) Code(s): I25.10 - ATHSCL HEART DISEASE OF [place] CORONARY ARTERY W/O ANG PCTRS Status: Chronic (6) ESRD (end stage renal disease) on dialysis Code(s): N18.6 - END STAGE RENAL DISEASE; Z99.2 - DEPENDENCE ON RENAL DIALYSIS Status: Chronic Comment: Maintenance HD (7) Hypertension Code(s): I10 - ESSENTIAL (PRIMARY) HYPERTENSION Status: Chronic Qualifiers: - Plan * Continue abx. * Discussed case with Ortho. * Surg planned for Friday.
[2018-08-03] MEDS: Polyethylene Glycol 3350 17 GM Packet PO SCH (17:43)
[2018-08-03] MEDS: Simvastatin 20 MG TAB PO SCH (20:38)
[2018-08-03] MEDS: Loratadine 10 MG TAB PO SCH (20:39)
[2018-08-03] MEDS: Temazepam 15 MG CAP PO PRN (21:34)
[2018-08-04] MEDS: Ondansetron ODT 4 MG TAB PO PRN (04:29)
[2018-08-04] MEDS: buPROPion HCl 100 MG TAB PO SCH ×2 (08:09→20:44)
[2018-08-04] MEDS: Calcium Acetate 667 MG CAP PO SCH ×3 (08:09→16:17)
[2018-08-04] MEDS: Fluticasone Propionate Nasal Spray 16 gm Bottle NASAL SCH (08:10)
[2018-08-04] MEDS: Docusate 100 MG CAP PO SCH ×2 (08:10→20:45)
[2018-08-04] MEDS: Pantoprazole 40 MG VIAL IVP SCH ×2 (08:10→20:44)
[2018-08-04] MEDS: Carvedilol 6.25 MG TAB PO SCH ×2 (08:10→20:46)
[2018-08-04] MEDS: Folic Acid/Vit B Comp W-C PO SCH (08:10)
[2018-08-04] MEDS: Escitalopram Oxalate 20 mg Tablet PO SCH (08:10)
--- NOTE | 2018-08-04 09:56 | PRG ---
DATE OF SERVICE: 08/04/2018 SUBJECTIVE: Ms. Rodriguez is a 68-year-old white female with ESRD and being followed up by the [facility] for her maintenance hemodialysis. She underwent hemodialysis yesterday without any difficulty. She was initially admitted for GI bleed, which is now stable. During this hospitalization, the patient was worked up for her chronic leg infection. She had a CT scan of her right lower extremity, which showed intramedullary abscess surrounding the distal femoral area with anterior cortical breakthrough with concomitant intramuscular abscess. Surgery has been consulted. She is planned for her surgery tomorrow. No complaints of chest pain or shortness of breath. OBJECTIVE: VITAL SIGNS: Blood pressure is noted at 130/65, heart rate 75, respiratory rate 18, temperature 98.2, and pulse ox 94%. GENERAL: Noted to be awake, supine, comfortable, not in distress. SKIN: Adequate turgor. HEENT: She has slightly pale conjunctivae. Anicteric sclerae. NECK: No neck mass. No carotid bruits. No JVD. CHEST: No deformities. LUNGS: Clear breath sounds. HEART: Normal sinus rhythm. No murmur. No gallops. No rubs. ABDOMEN: Globular, soft, and nontender. No masses. EXTREMITIES: No edema. MEDICATIONS: Medications of August 04, 2018, reviewed. LABORATORY DATA: Laboratories of August 03, 2018; white count 7.5, hemoglobin 9.5. Sodium 130, potassium 4.6, chloride 99, carbon dioxide 19, BUN 46, creatinine 4.67, and calcium 8.4. ASSESSMENT AND PLAN: 1. End-stage renal disease, stable. We will continue current Friday, Friday, and Friday hemodialysis. Fluid removal as tolerated. 2. Anemia, currently we are continuing her weekly Epogen. 3. Chronic thigh/leg infection - imaging showed an abscess. The patient will undergo surgical intervention tomorrow. Surgery/Orthopedic surgery has been consulted. Overall, agree with current management. Job ID: [id number]
[2018-08-04] MEDS: HYDROcodone/Acetaminophen 7.5/325 mg Tablet PO PRN ×2 (16:17→22:15)
[2018-08-04] MEDS: Polyethylene Glycol 3350 17 GM Packet PO SCH (16:18)
[2018-08-04] MEDS: Simvastatin 20 MG TAB PO SCH (20:44)
[2018-08-04] MEDS: Loratadine 10 MG TAB PO SCH (20:45)
[2018-08-04] MEDS: Temazepam 15 MG CAP PO PRN (22:15)
--- NOTE | 2018-08-04 22:19 | PDOC.PN ---
- Subjective Encounter Start Date: 08/04/18 Encounter Start Time: 15:00 Feeling well today. No new concerns. - Objective Resuscitation Status - Order Detail: 07/29/18 09:57 Resuscitation Status Routine Resuscitation Status: FULL: Full Resuscitation Discussed with: Patient Vital Signs & Weight: Vital Signs (12 hours) Temp Pulse Resp BP Pulse Ox 08/04/18 19:19 97.7 F 78 18 123/68 95 Weight Admit Weight 122 lb Weight 122 lb 5.705 oz Most Recent Monitor Data Heart Rate from ECG 79 NIBP 126/66 NIBP BP-Mean 86 Respiration from ECG 18 SpO2 98 I&O: 08/03/18 08/04/18 08/05/18 06:59 06:59 06:59 Intake Total 470 420 960 Output Total 550 825 400 Balance -80 -405 560 Result Diagrams: 08/03/18 05:07 08/03/18 05:07 Phys Exam - Physical Examination Constitutional: NAD Respiratory: no wheezing, no rales, no rhonchi Cardiovascular: RRR, no rub II/IV M Gastrointestinal: soft, non-tender, no distention, positive bowel sounds Musculoskeletal: no edema Neurological: non-focal Psychiatric: normal affect Dx/Plan (1) Erosive esophagitis Code(s): K22.10 - ULCER OF ESOPHAGUS WITHOUT BLEEDING Status: Acute (2) Acute on chronic blood loss anemia Code(s): D62 - ACUTE POSTHEMORRHAGIC ANEMIA Status: Acute Comment: will try to give 2 units with dialysis today (3) MRSA infection Code(s): A49.02 - METHICILLIN RESIS STAPH INFECTION, UNSP SITE Status: Acute Comment: right hip, likely of artificial hip, orth and ID consulted, on Vanc (4) Upper GI bleed Code(s): K92.2 - GASTROINTESTINAL HEMORRHAGE, UNSPECIFIED Status: Acute Comment: errosive esophagitis on EGD, Hgb still low, transfusion never given last night, will need to transfuse 2 more units (5) CAD (coronary artery disease) Code(s): I25.10 - ATHSCL HEART DISEASE OF [place] CORONARY ARTERY W/O ANG PCTRS Status: Chronic (6) ESRD (end stage renal disease) on dialysis Code(s): N18.6 - END STAGE RENAL DISEASE; Z99.2 - DEPENDENCE ON RENAL DIALYSIS Status: Chronic Comment: Maintenance HD (7) Hypertension Code(s): I10 - ESSENTIAL (PRIMARY) HYPERTENSION Status: Chronic Qualifiers: - Plan * Discussed with Ortho. * Will remove the right hip hardware and leave it out tomorrow. * Continue abx.
[2018-08-05 07:16] LABS: #Basophils 0.1 thou/uL (0.0-0.2); #Eosinphils 0.8 thou/uL (0.0-0.7); #Lymphocytes 1.9 thou/uL (1.20-3.40); #Monocytes 0.5 thou/uL (0.11-0.59); #Neutrophils 3.9 thou/uL (1.40-6.50); %Basophils 1.4 % (0.0-1.0); %Eosinophils 11.4 % (0.0-10.0); %Lymphocytes 26.7 % (21.0-51.0); %Monocytes 6.7 % (0.0-10.0); %Neutrophils 53.8 % (42.0-75.0); Hemoglobin 9.7 g/dL (12.0-16.0); Mean Corpuscular HGB CONC 35.3 g/dL (32.0-36.0); Mean Corpuscular Hemoglobin 33.5 pg (27.0-31.0); Mean Corpuscular Volume 94.9 fL (78.0-98.0); Mean Platelet Volume 8.2 fL (7.4-10.4); Platelet Count 265 thou/uL (130-400); RBC Distribution Width 14.4 % (11.5-14.5); Red Blood Cell (RBC) Count 2.91 mill/uL (4.20-5.40); White Blood Cell (WBC) Count 7.3 thou/uL (4.8-10.8)
[2018-08-05 07:28] LABS: Anion Gap 15 mmol/L (10-20); BUN (Urea Nitrogen) 43 mg/dL (9.8-20.1); Calc. Creatinine Clearance 12 mL/min (70-130); Calcium 8.6 mg/dL (7.8-10.44); Carbon Dioxide 22 mmol/L (23-31); Chloride 100 mmol/L (98-107); Estimated GFR-MDRD 11; Glucose 78 mg/dL (80-115); Potassium 4.3 mmol/L (3.5-5.1); Sodium 133 mmol/L (136-145); Vancomycin, Random 12.2 ug/mL (See Comment)
[2018-08-05] MEDS: Calcium Acetate 667 MG CAP PO SCH ×3 (08:38→17:00)
[2018-08-05] MEDS: Carvedilol 6.25 MG TAB PO SCH ×2 (08:38→21:15)
[2018-08-05] MEDS: buPROPion HCl 100 MG TAB PO SCH ×2 (08:38→21:14)
[2018-08-05] MEDS: Docusate 100 MG CAP PO SCH ×2 (08:39→21:15)
[2018-08-05] MEDS: Fluticasone Propionate Nasal Spray 16 gm Bottle NASAL SCH (08:39)
[2018-08-05] MEDS: Folic Acid/Vit B Comp W-C PO SCH (08:39)
[2018-08-05] MEDS: Escitalopram Oxalate 20 mg Tablet PO SCH (08:39)
[2018-08-05] MEDS: Pantoprazole 40 MG VIAL IVP SCH ×2 (08:39→21:12)
[2018-08-05] MEDS ORDERED: Heparin 10,000 UNITS/ 10 ML VIAL ONE (09:00)
--- NOTE | 2018-08-05 09:57 | PRG ---
DATE OF SERVICE: 08/05/2018 SUBJECTIVE: Ms. Rodriguez is a 68-year-old white female with ESRD and currently on maintenance hemodialysis. She is currently undergoing hemodialysis today. No heparin is being used. Fluid removal only as tolerated. She has a planned right leg surgery to drain her right lower extremity abscesses-as shown by the CAT scan of the right lower extremity. No other complaints. No chest pain or shortness of breath. OBJECTIVE: VITAL SIGNS: Blood pressure is 125/62, heart rate 72, respiratory rate 18, temperature 98.5, pulse ox 96%. GENERAL: Noted to be awake, alert, comfortable, not in overt distress. SKIN: Good adequate turgor. HEENT: She has slightly pale conjunctivae. Anicteric sclerae. NECK: No neck mass. No carotid bruits. No JVD. CHEST: No deformities. LUNGS: Clear breath sounds. HEART: Normal sinus rhythm. No murmur. No gallops. No rubs. ABDOMEN: Globular, soft, nontender. No masses. EXTREMITIES: No edema. MEDICATIONS: Medications of August 05, 2018, reviewed. LABORATORY DATA: Laboratories of August 05, 2018, white count 7.3, hemoglobin 9.7. Sodium 133, potassium 4.3, chloride 100, carbon dioxide 22, BUN 43, creatinine 3.89, glucose 78, calcium 8.6. ASSESSMENT AND PLAN: 1. End-stage renal disease, stable. Continue current Friday, Friday, and Friday dialysis. Fluid removal as tolerated. We will hold off heparin due to the planned surgery this afternoon. 2. Right lower leg abscess-for surgical exploration this afternoon. 3. Anemia, continuing weekly Epogen. Hemoglobin is holding steady. 4. Agree with current management. Job ID: [id number]
[2018-08-05] MEDS: Vancomycin HCl 500 MG in Sodium Chloride 0.9% 100 ML IVPB SCH (11:07)
[2018-08-05] MEDS ORDERED: Morphine 2 MG/ML SYRINGE ONE (15:23)
--- NOTE | 2018-08-05 16:09 | PRG ---
DATE OF SERVICE: 08/05/2018 SUBJECTIVE: Michael went to the OR and Dr. Nugent removed the hardware. It does not look like he is going to put a spacer. OBJECTIVE: VITAL SIGNS: She is afebrile. Other vital signs are normal. LUNGS: Clear. CARDIAC: S1 and S2. Regular rate. ABDOMEN: Soft. DIAGNOSTIC STUDIES: LABORATORY RESULTS: White cell count 7.3. Creatinine 3.89. ASSESSMENT AND DISCUSSION: End-stage renal disease following complications associated with congenital urinary tract abnormality, prior fracture of right femur, chronic osteomyelitis, sinus tract formation and involvement of the implant, specifically the femoral stem. The patient has had the implant removed and will remain without a joint. We will have to treat her again for a protracted period of time and we will do that through dialysis, probably for 8 weeks at least and then switch to suppressive therapy with probably trimethoprim and sulfamethoxazole, low-dose. Job ID: [id number]
[2018-08-05] MEDS ORDERED: Lidocaine 1% (PF) 30 ML VIAL ONE (16:11)
[2018-08-05] MEDS ORDERED: Neomycin-Polymyxin 1 ML AMP ONE (16:11)
[2018-08-05] MEDS ORDERED: Ketamine 50 MG/ML (10ML VIAL) ONE (16:17)
[2018-08-05] MEDS ORDERED: Fentanyl 100 MCG/2 ML VIAL ONE ×3 (16:26→19:18)
[2018-08-05] MEDS ORDERED: Midazolam HCl 2 mg/2 ml Vial ONE (16:42)
[2018-08-05] MEDS: Polyethylene Glycol 3350 17 GM Packet PO SCH (17:00)
[2018-08-05] MEDS: EPOETIN ALFA-EPBX (ESRD) 4,000 UNIT/ML VIAL SC SCH (18:00)
[2018-08-05] MEDS ORDERED: SUGAMMADEX SODIUM 200 MG/2 ML VIAL ONE (18:41)
[2018-08-05] MEDS ORDERED: Morphine Sulfate 2 MG/ML SYRINGE SLOW IVP PRN (19:06)
[2018-08-05] MEDS ORDERED: PACU-Morphine 4MG/ML VIAL SLOW IVP PRN (19:06)
[2018-08-05] MEDS ORDERED: Promethazine HCl 25 MG/ML VIAL SLOW IVP PRN (19:06)
[2018-08-05] MEDS ORDERED: Ondansetron HCl/PF 4 MG/2 ML Vial IVP PRN (19:06)
[2018-08-05] MEDS ORDERED: Promethazine HCl 25 MG/ML VIAL IM PRN (19:06)
[2018-08-05] MEDS: Morphine 4 MG/ML VIAL SLOW IVP PRN (21:01)
[2018-08-05] MEDS: Simvastatin 20 MG TAB PO SCH (21:11)
[2018-08-05] MEDS: Loratadine 10 MG TAB PO SCH (21:15)
[2018-08-05] MEDS: Temazepam 15 MG CAP PO PRN (22:31)
[2018-08-05] MEDS ORDERED: Heparin 10,000 UNITS/ 10 ML VIAL FS SCH (23:59)
--- NOTE | 2018-08-06 01:41 | OP ---
DATE OF PROCEDURE: 08/05/2018 PREOPERATIVE DIAGNOSES: Infected right thigh with retained hemiarthroplasty. POSTOPERATIVE DIAGNOSIS: Infected right thigh with retained hemiarthroplasty. PROCEDURES PERFORMED: Removal of right hip hemiarthroplasty, irrigation and debridement of right femur and intramedullary canal. ANESTHESIA: General. CHIEF DIVERSITY OFFICER: Dontrell Lainez PA-C. ESTIMATED BLOOD LOSS: 150 mL. IMPLANTS: None. SPECIMEN: Explanted hemiarthroplasty discarded along with cement mantle and then swabs x3 for Gram stain, culture, and sensitivity. DRAINS: Hemovac x1. COMPLICATIONS: None. OUTCOME: Successful removal of right hip hemiarthroplasty. INDICATIONS: Ms. Rodriguez is a 68-year-old lady with extensive history of right femoral fractures. She originally had a distal femur fracture treated with a lateral plate. She then went on to have a femoral neck fracture. This required some modification of the most proximal extent of the plate and then placement of a hip hemiarthroplasty. The patient then infected the plate distally at the knee. This required removal of the lateral plate and irrigation and debridement. She then did well for a short period of time and then again had evidence of infection and developed a sinus tract at the distal portion of her hip surgical wound. A recent CT scan of the leg has shown a small submuscular abscess formation as well as what appears to be evidence of possible pus in the intramedullary canal distal to the femoral stem. As such, the patient taken to the operating room now for anticipated removal of the hemiarthroplasty and irrigation and debridement. Informed consent has been obtained. I believe all questions have been answered. DESCRIPTION OF PROCEDURE: The patient was brought to the operating room and a time-out performed followed by induction of general anesthesia. Next, she was positioned in a left lateral decubitus position and a sterile prep and drape was performed of the right lower extremity. Next, the scar from her prior hip surgery was utilized and followed with a scalpel including excision of the sinus tract at the distal extent of this incision. After skin was sharply incised, dissection was carried down to the underlying fascia rufino and tensor fascia. This was then incised in line with the skin incision and then reflected anteriorly and posteriorly and a Charnley retractor placed in the wound. Next, an elevator was passed under the abductors and then the repaired short external rotators were identified and released off the posterior aspect of the femur. At this point, it was obvious that the patient did have an ununited fracture of the greater trochanter. However, it was not completely unstable and as such, left in place. The fracture was then carried down to the capsule and a capsulectomy performed. At this point, the hip was dislocated and then the stem was able to be removed with ease. The cement mantle also able to be removed with ease consistent with this infection. Next, the femoral canal was thoroughly irrigated with curette, passed down the canal, removing the membrane along the intramedullary canal. At the completion of this, 5 L of normal saline was irrigated down the canal as well as around the hip incision. The sinus tract was tracked down and some submuscular abscess was decompressed through this area as well. Once thoroughly irrigated and all abscess cavities were decompressed and excised, wound closure performed. The fascia rufino and tensor fascia reapproximated with #2 PDS. This was followed by placement of a Hemovac drain and then Triny's fascia closed, followed by subcutaneous and nylon suture for the skin. A Xeroform gauze and tape dressing was applied to the thigh and then the patient was transferred to recovery room in stable condition. There were no complications. She tolerated the procedure well. Job ID: [id number]
[2018-08-06] MEDS: Morphine 4 MG/ML VIAL SLOW IVP PRN ×4 (02:10→22:35)
[2018-08-06 07:20] LABS: #Basophils 0.1 thou/uL (0.0-0.2); #Eosinphils 0.2 thou/uL (0.0-0.7); #Lymphocytes 1.4 thou/uL (1.20-3.40); #Monocytes 0.6 thou/uL (0.11-0.59); %Basophils 1.5 % (0.0-1.0); %Eosinophils 2.7 % (0.0-10.0); %Lymphocytes 19.2 % (21.0-51.0); %Monocytes 8.8 % (0.0-10.0); %Neutrophils 67.8 % (42.0-75.0); Hemoglobin 7.2 g/dL (12.0-16.0); Mean Corpuscular HGB CONC 32.8 g/dL (32.0-36.0); Mean Corpuscular Hemoglobin 31.5 pg (27.0-31.0); Mean Corpuscular Volume 96.2 fL (78.0-98.0); Mean Platelet Volume 7.7 fL (7.4-10.4); Platelet Count 262 thou/uL (130-400); RBC Distribution Width 14.1 % (11.5-14.5); Red Blood Cell (RBC) Count 2.29 mill/uL (4.20-5.40); White Blood Cell (WBC) Count 7.3 thou/uL (4.8-10.8)
[2018-08-06] MEDS: Folic Acid/Vit B Comp W-C PO SCH (09:14)
[2018-08-06] MEDS: buPROPion HCl 100 MG TAB PO SCH ×2 (09:14→21:15)
[2018-08-06] MEDS: Calcium Acetate 667 MG CAP PO SCH ×3 (09:14→18:12)
[2018-08-06] MEDS: Docusate 100 MG CAP PO SCH ×2 (09:14→21:15)
[2018-08-06] MEDS: Carvedilol 6.25 MG TAB PO SCH ×2 (09:15→21:16)
[2018-08-06] MEDS: Pantoprazole 40 MG VIAL IVP SCH ×2 (09:19→21:16)
[2018-08-06] MEDS: Escitalopram Oxalate 20 mg Tablet PO SCH (09:20)
[2018-08-06] MEDS: Fluticasone Propionate Nasal Spray 16 gm Bottle NASAL SCH (09:21)
[2018-08-06] MEDS: HYDROcodone/Acetaminophen 7.5/325 mg Tablet PO PRN ×3 (09:31→21:16)
--- NOTE | 2018-08-06 10:08 | PRG ---
DATE OF SERVICE: 08/06/2018 SUBJECTIVE: Ms. Rodriguez is a 68-year-old white female with ESRD and followed up by the [facility]al Service for maintenance hemodialysis. She underwent hemodialysis yesterday without any difficulty. Due to the infected right thigh, the patient has undergone an operative procedure. She underwent removal of the right hip hemiarthroplasty with irrigation and debridement of the right femur and intramedullary canal. Doing well since the surgery. Complaining of some postop pain, but denies any chest pain or shortness of breath. OBJECTIVE: VITAL SIGNS: Blood pressure is noted at 88/39, heart rate 74, respiratory rate 16, temperature 98.6, and pulse ox 99%. GENERAL: Noted to be awake, alert, comfortable, not in distress. SKIN: Adequate turgor. HEENT: Slightly pale conjunctivae. Anicteric sclerae. NECK: No neck mass. No carotid bruits. No JVD. CHEST: No deformities. LUNGS: Clear breath sounds. HEART: Normal sinus rhythm. No murmur. No gallops. No rubs. ABDOMEN: Globular, soft, and nontender. No masses. EXTREMITIES: No edema. MEDICATIONS: Medications of August 06, 2018, was reviewed. LABORATORY DATA: Laboratories of August 06, 2018; white count 7.2 and hemoglobin 7.2. On August 05, 2018; sodium 133, potassium 4.3, chloride 100, carbon dioxide 22, BUN 43, creatinine 3.89, and calcium 8.6. ASSESSMENT AND PLAN: 1. Anemia-hemoglobin lower today. This could be a reflection of her surgery. Continue weekly Epogen. P.r.n. blood transfusion for hemoglobin less than 7. We will recheck CBC in a.m. 2. Infected right thigh/prosthesis-the patient currently on antibiotics. In addition, she underwent removal of the right hip hemiarthroplasty with irrigation and debridement of the right femoral. Doing well. 3. End-stage renal disease, stable. Continuing Friday, Friday, and Friday hemodialysis. No indication for any emergent hemodialysis today. 4. Overall prognosis remains guarded. We will recheck basic met and CBC in a.m. Job ID: [id number]
[2018-08-06] MEDS ORDERED: Sodium Chloride 0.9% 500 ML IV SCH (10:15)
--- NOTE | 2018-08-06 15:26 | PDOC.PN ---
- Subjective Encounter Start Date: 08/06/18 Encounter Start Time: 10:15 Subjective: pt up in bed no complains - Objective Resuscitation Status - Order Detail: 07/29/18 09:57 Resuscitation Status Routine Resuscitation Status: FULL: Full Resuscitation Discussed with: Patient Vital Signs & Weight: Vital Signs (12 hours) Temp Pulse Pulse Resp BP BP BP 08/06/18 13:54 98.3 F 67 16 96/36 L 08/06/18 10:57 98.4 F 71 16 77/37 L 08/06/18 09:15 89/39 L 08/06/18 08:00 08/06/18 07:55 98.6 F 74 16 88/39 L 08/06/18 07:50 98.4 F 71 08/06/18 04:00 98.6 F 77 20 BP Pulse Ox 08/06/18 13:54 08/06/18 10:57 08/06/18 09:15 08/06/18 08:00 98 08/06/18 07:55 99 08/06/18 07:50 08/06/18 04:00 96/46 L 100 Weight Admit Weight 122 lb Weight 122 lb 5.705 oz Most Recent Monitor Data Heart Rate from ECG 79 NIBP 126/66 NIBP BP-Mean 86 Respiration from ECG 18 SpO2 98 I&O: 08/05/18 08/06/18 08/07/18 06:59 06:59 06:59 Intake Total 1480 650 790 Output Total 750 75 75 Balance 730 575 715 Result Diagrams: 08/06/18 07:08 08/05/18 07:06 Phys Exam - Physical Examination appears pale Neck: no nodes, no JVD, supple, full ROM Respiratory: no wheezing, no rales, no rhonchi, clear to auscultation bilateral Cardiovascular: RRR, no significant murmur, no rub, gallop, irregular Gastrointestinal: soft, non-tender, no distention, positive bowel sounds Dx/Plan (1) Erosive esophagitis Code(s): K22.10 - ULCER OF ESOPHAGUS WITHOUT BLEEDING Status: Acute (2) Acute on chronic blood loss anemia Code(s): D62 - ACUTE POSTHEMORRHAGIC ANEMIA Status: Acute Comment: will try to give 2 units with dialysis today (3) MRSA infection Code(s): A49.02 - METHICILLIN RESIS STAPH INFECTION, UNSP SITE Status: Acute Comment: right hip, likely of artificial hip, orth and ID consulted, on Vanc (4) Post op infection Code(s): T81.40XA - INFECTION FOLLOWING A PROCEDURE, UNSPECIFIED, INIT Status : Acute (5) Upper GI bleed Code(s): K92.2 - GASTROINTESTINAL HEMORRHAGE, UNSPECIFIED Status: Acute Comment: errosive esophagitis on EGD, Hgb still low, transfusion never given last night, will need to transfuse 2 more units - Plan will transfuse pt one unit of blood. -: pt s/p removal of right hip hemiarthoplasty -: pt on abx * . Review of Systems - Review of Systems Respiratory: negative: Cough, Dry, Shortness of Breath, Hemoptysis, SOB with Excertion, Pleuritic Pain, Sputum, Wheezing Cardiovascular: negative: chest pain, palpitations, orthopnea, paroxysmal nocturnal dyspnea, edema, light headedness, other Gastrointestinal: negative: Nausea, Vomiting, Abdominal Pain, Diarrhea, Constipation, Melena, Hematochezia, Other - Medications/Allergies Allergies/Adverse Reactions: Allergies Allergy/AdvReac Type Severity Reaction Status Date / Time atorvastatin calcium Allergy Intermediate Rash Verified 05/13/18 17:06 [From Lipitor] cefuroxime axetil Allergy Intermediate Rash Verified 05/13/18 17:06 [From Ceftin] meperidine HCl [From Demerol] Allergy Intermediate SHAKING Verified 05/13/18 17: 06 nitrofurantoin Allergy Intermediate Nausea Verified 05/13/18 17:06 [From Macrodantin] Medications: Current Medications Acetaminophen (Tylenol) 650 mg PO Q4H PRN PRN Reason: Headache/Fever/Mild Pain (1-3) Acetaminophen (Tylenol) 650 mg GA Q4H PRN PRN Reason: Headache/Fever/Mild Pain (1-3) Hydrocodone Bitart/Acetaminophen ([place] 7.5/325) 1 tab PO Q4H PRN PRN Reason: Mild Pain (1-3) Last Admin: 07/29/18 21:30 Dose: 1 tab Hydrocodone Bitart/Acetaminophen ([place] 7.5/325) 2 tab PO Q4H PRN PRN Reason: Moderate Pain (4-6) Last Admin: 08/06/18 09:31 Dose: 2 tab Bupropion HCl (Wellbutrin) 100 mg PO BID [facility] Last Admin: 08/06/18 09:14 Dose: 100 mg Calcium Acetate (Phoslo) 1,334 mg PO TID-[facility] Last Admin: 08/06/18 12:45 Dose: 1,334 mg Carvedilol (Coreg) 12.5 mg PO BID [facility] Last Admin: 08/06/18 09:15 Dose: Not Given Clonazepam (Klonopin) 0.5 mg PO BIDPRN PRN PRN Reason: Anxiety Last Admin: 08/05/18 00:22 Dose: 0.5 mg Cyclobenzaprine HCl (Flexeril) 10 mg PO TID PRN PRN Reason: Muscle Spasm Docusate Sodium (Colace) 100 mg PO BID [facility] Last Admin: 08/06/18 09:14 Dose: 100 mg Escitalopram Oxalate (Lexapro) 20 mg PO DAILY [facility] Last Admin: 08/06/18 09:20 Dose: 20 mg Fluticasone Propionate (Flonase Nasal [place]) 1 gm NASAL DAILY [facility] Last Admin: 08/06/18 09:21 Dose: 1 inh Guaifenesin/Dextromethorphan (Robitussin Dm) 15 ml PO Q4H PRN PRN Reason: Cough Heparin Sodium (Porcine) (Heparin Lock Flush 100 Units/Ml) 500 units IVF Q12HR PRN PRN Reason: Heparin Flush Vancomycin HCl 1 gm/ Device 200 mls @ 200 mls/hr IVPB WILLCALL [facility] Vancomycin HCl 750 mg/ Sodium (Chloride) 250 mls @ 250 mls/hr IVPB WILLCALL [facility] Vancomycin HCl 500 mg/ Sodium (Chloride) 100 mls @ 100 mls/hr IVPB WILLCALL [facility] Last Admin: 08/05/18 11:07 Dose: 100 mls Vancomycin HCl 250 mg/ Sodium (Chloride) 100 mls @ 100 mls/hr IVPB WILLCALL [facility] Last Admin: 07/31/18 15:36 Dose: 100 mls Loperamide HCl (Imodium) 2 mg PO DAILY PRN PRN Reason: Diarrhea/Loose Stools Loratadine (Claritin) 10 mg PO HS [facility] Last Admin: 08/05/18 21:15 Dose: 10 mg Miscellaneous Medication (Vancomycin Sliding Scale) 1 each IVPB .MWF DIALYSIS PRN PRN Reason: LABS Miscellaneous Medication (Pharmacy To Dose) 0 each IVPB .VANC /DIALYSIS PRN PRN Reason: LABS Morphine Sulfate (Morphine) 4 mg SLOW IVP Q4H PRN PRN Reason: Severe Pain (7-10) Last Admin: 08/06/18 06:03 Dose: 4 mg Hold Vancomycin For (Level >20) 0 each FS .AT DIALYSIS [facility] Ondansetron HCl (Zofran Odt) 4 mg PO Q6H PRN PRN Reason: Nausea/Vomiting Last Admin: 08/04/18 04:29 Dose: 4 mg Ondansetron HCl (Zofran) 4 mg IVP Q6H PRN PRN Reason: Nausea/Vomiting Last Admin: 07/31/18 09:29 Dose: 4 mg Pantoprazole Sodium (Protonix) 40 mg IVP Q12HR [facility] Last Admin: 08/06/18 09:19 Dose: 40 mg Polyethylene Glycol (Miralax) 17 gm PO 1700 [facility] Last Admin: 08/05/18 17:00 Dose: Not Given Senna/Docusate Sodium (Senokot S) 2 tab PO BID PRN PRN Reason: Constipation Simvastatin (Zocor) 10 mg PO HS [facility] Last Admin: 08/05/18 21:11 Dose: 10 mg Sodium Chloride (Flush - Normal Saline) 10 ml IVF PRN PRN PRN Reason: Saline Flush Sodium Chloride (Flush - Normal Saline) 10 ml IVF PRN PRN PRN Reason: Saline Flush Sodium Chloride (Flush - Normal Saline) 10 ml IVF PRN PRN PRN Reason: Saline Flush Temazepam (Restoril) 15 mg PO HS PRN PRN Reason: Insomnia Last Admin: 08/05/18 22:31 Dose: 15 mg Vitamin B Complex/Vit C/Folic Acid (Nephro-Mimi Tablet) 1 tab PO QAM [facility] Last Admin: 08/06/18 09:14 Dose: 1 tab
[2018-08-06 15:34] LABS: Hemoglobin 8.2 g/dL (12.0-16.0)
[2018-08-06] MEDS: Polyethylene Glycol 3350 17 GM Packet PO SCH (18:13)
[2018-08-06] MEDS: Loratadine 10 MG TAB PO SCH (21:15)
[2018-08-06] MEDS: Simvastatin 20 MG TAB PO SCH (21:15)
[2018-08-06] MEDS: Temazepam 15 MG CAP PO PRN (22:35)
[2018-08-07] MEDS: Morphine 4 MG/ML VIAL SLOW IVP PRN (04:28)
[2018-08-07 06:42] LABS: #Basophils 0.1 thou/uL (0.0-0.2); #Lymphocytes 1.6 thou/uL (1.20-3.40); #Monocytes 0.8 thou/uL (0.11-0.59); #Neutrophils 5.5 thou/uL (1.40-6.50); %Basophils 0.7 % (0.0-1.0); %Eosinophils 10.8 % (0.0-10.0); %Lymphocytes 17.9 % (21.0-51.0); %Monocytes 8.6 % (0.0-10.0); Hemoglobin 8.5 g/dL (12.0-16.0); Mean Corpuscular HGB CONC 32.8 g/dL (32.0-36.0); Mean Corpuscular Hemoglobin 31.1 pg (27.0-31.0); Mean Corpuscular Volume 95.1 fL (78.0-98.0); Mean Platelet Volume 8.6 fL (7.4-10.4); Platelet Count 206 thou/uL (130-400); RBC Distribution Width 14.4 % (11.5-14.5); Red Blood Cell (RBC) Count 2.73 mill/uL (4.20-5.40); White Blood Cell (WBC) Count 8.9 thou/uL (4.8-10.8)
[2018-08-07 06:58] LABS: Anion Gap 16 mmol/L (10-20); BUN (Urea Nitrogen) 35 mg/dL (9.8-20.1); Calc. Creatinine Clearance 12 mL/min (70-130); Calcium 8.2 mg/dL (7.8-10.44); Carbon Dioxide 21 mmol/L (23-31); Chloride 100 mmol/L (98-107); Estimated GFR-MDRD 12; Glucose 89 mg/dL (80-115); Potassium 4.5 mmol/L (3.5-5.1); Sodium 132 mmol/L (136-145)
[2018-08-07] MEDS: HYDROcodone/Acetaminophen 7.5/325 mg Tablet PO PRN ×3 (07:48→19:15)
[2018-08-07] MEDS: Escitalopram Oxalate 20 mg Tablet PO SCH (07:52)
[2018-08-07] MEDS: Calcium Acetate 667 MG CAP PO SCH ×3 (07:52→16:51)
[2018-08-07] MEDS: Folic Acid/Vit B Comp W-C PO SCH (07:52)
[2018-08-07] MEDS: Carvedilol 6.25 MG TAB PO SCH ×2 (07:53→21:33)
[2018-08-07] MEDS: Docusate 100 MG CAP PO SCH ×2 (07:53→21:34)
[2018-08-07] MEDS: buPROPion HCl 100 MG TAB PO SCH ×2 (07:53→21:38)
[2018-08-07] MEDS: Pantoprazole 40 MG VIAL IVP SCH ×2 (08:00→21:38)
[2018-08-07] MEDS: Fluticasone Propionate Nasal Spray 16 gm Bottle NASAL SCH (08:08)
[2018-08-07 08:29] LABS: Vancomycin, Random 11.7 ug/mL (See Comment)
[2018-08-07] MEDS ORDERED: Heparin 10,000 UNITS/ 10 ML VIAL ONE (10:00)
--- NOTE | 2018-08-07 10:11 | PRG ---
DATE OF SERVICE: 08/07/2018 SUBJECTIVE: Ms. Rodriguez is a 68-year-old white female with ESRD followed up by the [facility]al Service for maintenance hemodialysis. She recently went for surgical intervention with removal of the right hip hemiarthroplasty and with irrigation and debridement of right femur due to chronic infection. This morning, she is feeling better. Denies any chest pain or shortness of breath. OBJECTIVE: VITAL SIGNS: Blood pressure is 112/43, heart rate 84, respiratory rate 18, temperature 98.5, and pulse ox 94%. GENERAL: Awake, alert, sitting comfortable, not in distress. SKIN: Adequate turgor. HEENT: Pinkish, slightly pale conjunctivae. Anicteric sclerae. NECK: No neck mass. No carotid bruits. No JVD. CHEST: No deformities. LUNGS: Clear breath sounds. No wheezing. No crackles. HEART: Normal sinus rhythm. No murmurs, gallops, or rubs. ABDOMEN: Globular, soft, nontender. No masses. EXTREMITIES: No edema. No deformities. MEDICATIONS: Medications of August 07, 2018, reviewed. LABORATORY DATA: Laboratories of August 07, 2018, white count 8.9, hemoglobin 8.5. Sodium 132, potassium 4.5, chloride 100, carbon dioxide 21, BUN 35, creatinine 3.81, glucose 89, and calcium 8.2. ASSESSMENT AND PLAN: 1. End-stage renal disease, stable. We will continue current Friday, Friday, and Friday dialysis. Fluid removal only as tolerated. 2. Anemia, continuing weekly Epogen. P.r.n. blood transfusion. 3. Infected right thigh/prosthesis-the patient is status post removal of right hip arthroplasty with irrigation and debridement of the right femoral area. Surgery is following. 4. Overall, I agree with current management. Job ID: [id number]
[2018-08-07] MEDS ORDERED: Activase 2 MG VIAL CATH SCH (15:30)
[2018-08-07] MEDS ORDERED: Sterile Water 10 ML VIAL IVP SCH (15:30)
--- NOTE | 2018-08-07 15:56 | PDOC.PN ---
- Subjective Encounter Start Date: 08/07/18 Encounter Start Time: 10:15 Subjective: pt up in bed no complains - Objective Resuscitation Status - Order Detail: 07/29/18 09:57 Resuscitation Status Routine Resuscitation Status: FULL: Full Resuscitation Discussed with: Patient Vital Signs & Weight: Vital Signs (12 hours) Temp Pulse Resp BP BP BP Pulse Ox 08/07/18 13:20 98.2 F 76 18 102/46 L 95 08/07/18 07:53 118/66 08/07/18 07:46 98.5 F 84 18 112/43 L 94 L 08/07/18 04:00 98.5 F 80 16 108/47 L 95 Weight Admit Weight 122 lb Weight 122 lb 5.705 oz Most Recent Monitor Data Heart Rate from ECG 79 NIBP 126/66 NIBP BP-Mean 86 Respiration from ECG 18 SpO2 98 I&O: 08/06/18 08/07/18 08/08/18 06:59 06:59 06:59 Intake Total 650 1980 360 Output Total 75 275 Balance 575 1705 360 Result Diagrams: 08/07/18 06:32 08/07/18 06:32 Phys Exam - Physical Examination Neck: no nodes, no JVD, supple, full ROM Respiratory: no wheezing, no rales, no rhonchi, wheezing present, clear to auscultation bilateral Cardiovascular: RRR, no significant murmur, no rub, gallop, irregular Gastrointestinal: soft, non-tender, no distention, positive bowel sounds Musculoskeletal: no edema, pulses present, edema present Dx/Plan (1) Erosive esophagitis Code(s): K22.10 - ULCER OF ESOPHAGUS WITHOUT BLEEDING Status: Acute (2) Acute on chronic blood loss anemia Code(s): D62 - ACUTE POSTHEMORRHAGIC ANEMIA Status: Acute Comment: will try to give 2 units with dialysis today (3) MRSA infection Code(s): A49.02 - METHICILLIN RESIS STAPH INFECTION, UNSP SITE Status: Acute Comment: right hip, likely of artificial hip, orth and ID consulted, on Vanc (4) Post op infection Code(s): T81.40XA - INFECTION FOLLOWING A PROCEDURE, UNSPECIFIED, INIT Status : Acute (5) Upper GI bleed Code(s): K92.2 - GASTROINTESTINAL HEMORRHAGE, UNSPECIFIED Status: Acute Comment: errosive esophagitis on EGD, Hgb still low, transfusion never given last night, will need to transfuse 2 more units - Plan hh stable, she did get up with Pt -: Eating well. cx indicate staph aureus -: pt on vanco -: will need snf * . Review of Systems - Review of Systems Respiratory: negative: Cough, Dry, Shortness of Breath, Hemoptysis, SOB with Excertion, Pleuritic Pain, Sputum, Wheezing Cardiovascular: negative: chest pain, palpitations, orthopnea, paroxysmal nocturnal dyspnea, edema, light headedness, other - Medications/Allergies Allergies/Adverse Reactions: Allergies Allergy/AdvReac Type Severity Reaction Status Date / Time atorvastatin calcium Allergy Intermediate Rash Verified 05/13/18 17:06 [From Lipitor] cefuroxime axetil Allergy Intermediate Rash Verified 05/13/18 17:06 [From Ceftin] meperidine HCl [From Demerol] Allergy Intermediate SHAKING Verified 05/13/18 17: 06 nitrofurantoin Allergy Intermediate Nausea Verified 05/13/18 17:06 [From Macrodantin] Medications: Current Medications Acetaminophen (Tylenol) 650 mg PO Q4H PRN PRN Reason: Headache/Fever/Mild Pain (1-3) Acetaminophen (Tylenol) 650 mg [place] Q4H PRN PRN Reason: Headache/Fever/Mild Pain (1-3) Hydrocodone Bitart/Acetaminophen ([place] 7.5/325) 1 tab PO Q4H PRN PRN Reason: Mild Pain (1-3) Last Admin: 08/06/18 16:05 Dose: 1 tab Hydrocodone Bitart/Acetaminophen ([place] 7.5/325) 2 tab PO Q4H PRN PRN Reason: Moderate Pain (4-6) Last Admin: 08/07/18 11:46 Dose: 2 tab Alteplase, Recombinant (Cathflo) 4 mg CATH ONE [facility] Stop: 08/07/18 18:00 Bupropion HCl (Wellbutrin) 100 mg PO BID [facility] Last Admin: 08/07/18 07:53 Dose: 100 mg Calcium Acetate (Phoslo) 1,334 mg PO TID-[facility] Last Admin: 08/07/18 11:47 Dose: 1,334 mg Carvedilol (Coreg) 12.5 mg PO BID [facility] Last Admin: 08/07/18 07:53 Dose: Not Given Clonazepam (Klonopin) 0.5 mg PO BIDPRN PRN PRN Reason: Anxiety Last Admin: 08/05/18 00:22 Dose: 0.5 mg Cyclobenzaprine HCl (Flexeril) 10 mg PO TID PRN PRN Reason: Muscle Spasm Docusate Sodium (Colace) 100 mg PO BID [facility] Last Admin: 08/07/18 07:53 Dose: Not Given Escitalopram Oxalate (Lexapro) 20 mg PO DAILY [facility] Last Admin: 08/07/18 07:52 Dose: 20 mg Fluticasone Propionate (Flonase Nasal [place]) 1 gm NASAL DAILY [facility] Last Admin: 08/07/18 08:08 Dose: 1 inh Guaifenesin/Dextromethorphan (Robitussin Dm) 15 ml PO Q4H PRN PRN Reason: Cough Heparin Sodium (Porcine) (Heparin Lock Flush 100 Units/Ml) 500 units IVF Q12HR PRN PRN Reason: Heparin Flush Vancomycin HCl 1 gm/ Device 200 mls @ 200 mls/hr IVPB WILLCALL [facility] Vancomycin HCl 750 mg/ Sodium (Chloride) 250 mls @ 250 mls/hr IVPB [facility] Vancomycin HCl 500 mg/ Sodium (Chloride) 100 mls @ 100 mls/hr [facility] Last Admin: 08/05/18 11:07 Dose: 100 mls Vancomycin HCl 250 mg/ Sodium (Chloride) 100 mls @ 100 mls/hr [facility] Last Admin: 07/31/18 15:36 Dose: 100 mls Loperamide HCl (Imodium) 2 mg PO DAILY PRN PRN Reason: Diarrhea/Loose Stools Loratadine (Claritin) 10 mg PO [facility] Last Admin: 08/06/18 21:15 Dose: 10 mg Miscellaneous Medication (Vancomycin Sliding Scale) 1 each IVPB .MWF DIALYSIS PRN PRN Reason: LABS Miscellaneous Medication (Pharmacy To Dose) 0 each IVPB .DIALYSIS-MWF PRN PRN Reason: Pharmacy to dose: VANCOMYCIN Morphine Sulfate (Morphine) 4 mg SLOW IVP Q4H PRN PRN Reason: Severe Pain (7-10) Last Admin: 08/07/18 04:28 Dose: 4 mg Hold Vancomycin For (Level >20) 0 each FS .AT DIALYSIS [facility] Ondansetron HCl (Zofran Odt) 4 mg PO Q6H PRN PRN Reason: Nausea/Vomiting Last Admin: 08/04/18 04:29 Dose: 4 mg Ondansetron HCl (Zofran) 4 mg IVP Q6H PRN PRN Reason: Nausea/Vomiting Last Admin: 07/31/18 09:29 Dose: 4 mg Pantoprazole Sodium (Protonix) 40 mg IVP Q12HR [facility] Last Admin: 08/07/18 08:00 Dose: 40 mg Polyethylene Glycol (Miralax) 17 gm PO 1700 [facility] Last Admin: 08/06/18 18:13 Dose: Not Given Senna/Docusate Sodium (Senokot S) 2 tab PO BID PRN PRN Reason: Constipation Simvastatin (Zocor) 10 mg PO HS [facility] Last Admin: 08/06/18 21:15 Dose: 10 mg Sodium Chloride (Flush - Normal Saline) 10 ml IVF PRN PRN PRN Reason: Saline Flush Sodium Chloride (Flush - Normal Saline) 10 ml IVF PRN PRN PRN Reason: Saline Flush Sodium Chloride (Flush - Normal Saline) 10 ml IVF PRN PRN PRN Reason: Saline Flush Sterile Water (Water For Injection) 10 ml IVP ONE [facility] Stop: 08/07/18 18:00 Temazepam (Restoril) 15 mg PO HS PRN PRN Reason: Insomnia Last Admin: 08/06/18 22:35 Dose: 15 mg Vitamin B Complex/Vit C/Folic Acid (Nephro-Mimi Tablet) 1 tab PO QAM [facility] Last Admin: 08/07/18 07:52 Dose: 1 tab
[2018-08-07] MEDS: Polyethylene Glycol 3350 17 GM Packet PO SCH (16:51)
--- NOTE | 2018-08-07 18:00 | PRG ---
DATE OF SERVICE: 08/07/2018 SUBJECTIVE: Ms. Rodriguez had removal of the implant in the right side, the right hip, and irrigation and debridement of intramedullary canal is carried out. She is feeling better, although with moderate pain. OBJECTIVE: VITAL SIGNS: Normal. Blood pressure is kind of marginal. GENERAL: She is awake, alert, oriented. Chronically ill appearing. LUNGS: Clear. HEART: S1 and S2. Regular rate. ABDOMEN: Soft. MUSCULOSKELETAL: Right hip with wound dressing. EXTREMITIES: Vascular supply appears okay in lower extremities. LABORATORY DATA: White cell count 8.9, hemoglobin 8.5, platelets 206. Sodium 132, creatinine 3.81. Microbiology from the hip, we have probably the same organism Staphylococcus aureus, which is methicillin resistant and she will need to continue on protracted IV vancomycin, sliding scale administered at dialysis. ASSESSMENT AND PLAN: The end date of therapy is estimated to be around the end of August. After that then switch to suppressive therapy probably with trimethoprim/sulfamethoxazole adjusted for renal function plus oral rifampin. This was for about a month and a half and then suppressive low-dose trimethoprim/sulfamethoxazole. Job ID: [id number]
[2018-08-07] MEDS: Vancomycin HCl 500 MG in Sodium Chloride 0.9% 100 ML IVPB SCH (19:31)
[2018-08-07] MEDS: Simvastatin 20 MG TAB PO SCH (21:37)
[2018-08-07] MEDS: Loratadine 10 MG TAB PO SCH (21:38)
[2018-08-07] MEDS: Temazepam 15 MG CAP PO PRN (22:30)
[2018-08-07 22:48] LABS: HBSAB Concentration 23.68 mIU/mL; Hep B Surf AB Reactive (NonReactive)
[2018-08-08] MEDS: HYDROcodone/Acetaminophen 7.5/325 mg Tablet PO PRN ×3 (05:32→16:04)
[2018-08-08] MEDS: buPROPion HCl 100 MG TAB PO SCH ×2 (08:58→20:23)
[2018-08-08] MEDS: Calcium Acetate 667 MG CAP PO SCH ×3 (09:00→17:31)
[2018-08-08] MEDS: Escitalopram Oxalate 20 mg Tablet PO SCH (09:02)
[2018-08-08] MEDS: Docusate 100 MG CAP PO SCH ×2 (09:02→20:25)
[2018-08-08] MEDS: Folic Acid/Vit B Comp W-C PO SCH (09:02)
[2018-08-08] MEDS: Fluticasone Propionate Nasal Spray 16 gm Bottle NASAL SCH (09:03)
[2018-08-08] MEDS: Polyethylene Glycol 3350 17 GM Packet PO SCH (09:03)
[2018-08-08] MEDS: Ondansetron ODT 4 MG TAB PO PRN ×2 (09:57→20:33)
[2018-08-08] MEDS: Carvedilol 3.125 MG TAB PO SCH ×2 (09:59→20:26)
[2018-08-08] MEDS: Simethicone Chewable 80 MG TAB PO PRN (12:56)
[2018-08-08] MEDS: Pantoprazole 40 MG VIAL IVP SCH ×2 (13:00→20:25)
--- NOTE | 2018-08-08 14:06 | PDOC.PN ---
- Subjective Encounter Start Date: 08/08/18 Encounter Start Time: 10:15 Subjective: pt up in bed no complains - Objective Resuscitation Status - Order Detail: 07/29/18 09:57 Resuscitation Status Routine Resuscitation Status: FULL: Full Resuscitation Discussed with: Patient Vital Signs & Weight: Vital Signs (12 hours) Temp Pulse Resp BP Pulse Ox 08/08/18 12:06 98.3 F 76 18 90/49 L 90 L 08/08/18 08:27 98.5 F 77 16 93/42 L 94 L 08/08/18 04:00 98.9 F 82 16 110/59 L 94 L Weight Admit Weight 122 lb Weight 122 lb 5.705 oz Most Recent Monitor Data Heart Rate from ECG 79 NIBP 126/66 NIBP BP-Mean 86 Respiration from ECG 18 SpO2 98 I&O: 08/07/18 08/08/18 08/09/18 06:59 06:59 06:59 Intake Total 1980 560 Output Total 275 Balance 1705 560 Result Diagrams: 08/07/18 06:32 08/07/18 06:32 Additional Labs: Accuchecks 08/08/18 05:22 POC Glucose 222 H Phys Exam - Physical Examination Neck: no nodes, no JVD, supple, full ROM Respiratory: no wheezing, no rales, no rhonchi, wheezing present, clear to auscultation bilateral Cardiovascular: RRR, no significant murmur, no rub, gallop, irregular Gastrointestinal: soft, non-tender, no distention, positive bowel sounds Dx/Plan (1) Erosive esophagitis Code(s): K22.10 - ULCER OF ESOPHAGUS WITHOUT BLEEDING Status: Acute (2) Acute on chronic blood loss anemia Code(s): D62 - ACUTE POSTHEMORRHAGIC ANEMIA Status: Acute Comment: will try to give 2 units with dialysis today (3) MRSA infection Code(s): A49.02 - METHICILLIN RESIS STAPH INFECTION, UNSP SITE Status: Acute Comment: right hip, likely of artificial hip, orth and ID consulted, on Vanc (4) Post op infection Code(s): T81.40XA - INFECTION FOLLOWING A PROCEDURE, UNSPECIFIED, INIT Status : Acute (5) Upper GI bleed Code(s): K92.2 - GASTROINTESTINAL HEMORRHAGE, UNSPECIFIED Status: Acute Comment: errosive esophagitis on EGD, Hgb still low, transfusion never given last night, will need to transfuse 2 more units - Plan pt to continue vanco until end of august then on oral -: bactrium renally dosed with rifampin. -: will decrease her coreg to 3.125 * . Review of Systems - Review of Systems Respiratory: negative: Cough, Dry, Shortness of Breath, Hemoptysis, SOB with Excertion, Pleuritic Pain, Sputum, Wheezing Cardiovascular: negative: chest pain, palpitations, orthopnea, paroxysmal nocturnal dyspnea, edema, light headedness, other Gastrointestinal: negative: Nausea, Vomiting, Abdominal Pain, Diarrhea, Constipation, Melena, Hematochezia, Other - Medications/Allergies Allergies/Adverse Reactions: Allergies Allergy/AdvReac Type Severity Reaction Status Date / Time atorvastatin calcium Allergy Intermediate Rash Verified 05/13/18 17:06 [From Lipitor] cefuroxime axetil Allergy Intermediate Rash Verified 05/13/18 17:06 [From Ceftin] meperidine HCl [From Demerol] Allergy Intermediate SHAKING Verified 05/13/18 17: 06 nitrofurantoin Allergy Intermediate Nausea Verified 05/13/18 17:06 [From Macrodantin] Medications: Current Medications Acetaminophen (Tylenol) 650 mg PO Q4H PRN PRN Reason: Headache/Fever/Mild Pain (1-3) Acetaminophen (Tylenol) 650 mg [place] Q4H PRN PRN Reason: Headache/Fever/Mild Pain (1-3) Hydrocodone Bitart/Acetaminophen ([place] 7.5/325) 1 tab PO Q4H PRN PRN Reason: Mild Pain (1-3) Last Admin: 08/06/18 16:05 Dose: 1 tab Hydrocodone Bitart/Acetaminophen ([place] 7.5/325) 2 tab PO Q4H PRN PRN Reason: Moderate Pain (4-6) Last Admin: 08/08/18 08:59 Dose: 2 tab Bupropion HCl (Wellbutrin) 100 mg PO BID [facility] Last Admin: 08/08/18 08:58 Dose: 100 mg Calcium Acetate (Phoslo) 1,334 mg PO TID-[facility] Last Admin: 08/08/18 12:56 Dose: 1,334 mg Carvedilol (Coreg) 3.125 mg PO BID [facility] Last Admin: 08/08/18 09:59 Dose: Not Given Clonazepam (Klonopin) 0.5 mg PO BIDPRN PRN PRN Reason: Anxiety Last Admin: 08/05/18 00:22 Dose: 0.5 mg Cyclobenzaprine HCl (Flexeril) 10 mg PO TID PRN PRN Reason: Muscle Spasm Docusate Sodium (Colace) 100 mg PO BID [facility] Last Admin: 08/08/18 09:02 Dose: 100 mg Escitalopram Oxalate (Lexapro) 20 mg PO DAILY [facility] Last Admin: 08/08/18 09:02 Dose: 20 mg Fluticasone Propionate (Flonase Nasal [place]) 1 gm NASAL DAILY [facility] Last Admin: 08/08/18 09:03 Dose: 1 inh Guaifenesin/Dextromethorphan (Robitussin Dm) 15 ml PO Q4H PRN PRN Reason: Cough Heparin Sodium (Porcine) (Heparin Lock Flush 100 Units/Ml) 500 units IVF Q12HR PRN PRN Reason: Heparin Flush Vancomycin HCl 1 gm/ Device 200 mls @ 200 mls/hr IVPB [facility] Vancomycin HCl 750 mg/ Sodium (Chloride) 250 mls @ 250 mls/hr IVPB [facility] Vancomycin HCl 500 mg/ Sodium (Chloride) 100 mls @ 100 mls/hr [facility] Last Admin: 08/07/18 19:31 Dose: 100 mls Vancomycin HCl 250 mg/ Sodium (Chloride) 100 mls @ 100 mls/hr IVPB [facility] Last Admin: 07/31/18 15:36 Dose: 100 mls Loperamide HCl (Imodium) 2 mg PO DAILY PRN PRN Reason: Diarrhea/Loose Stools Loratadine (Claritin) 10 mg PO [facility] Last Admin: 08/07/18 21:38 Dose: 10 mg Miscellaneous Medication (Vancomycin Sliding Scale) 1 each IVPB .MWF DIALYSIS PRN PRN Reason: LABS Miscellaneous Medication (Pharmacy To Dose) 0 each IVPB .DIALYSIS-MWF PRN PRN Reason: Pharmacy to dose: VANCOMYCIN Morphine Sulfate (Morphine) 4 mg SLOW IVP Q4H PRN PRN Reason: Severe Pain (7-10) Last Admin: 08/07/18 04:28 Dose: 4 mg Hold Vancomycin For (Level >20) 0 each FS .AT DIALYSIS [facility] Ondansetron HCl (Zofran Odt) 4 mg PO Q6H PRN PRN Reason: Nausea/Vomiting Last Admin: 08/08/18 09:57 Dose: 4 mg Ondansetron HCl (Zofran) 4 mg IVP Q6H PRN PRN Reason: Nausea/Vomiting Last Admin: 07/31/18 09:29 Dose: 4 mg Pantoprazole Sodium (Protonix) 40 mg IVP Q12HR [facility] Last Admin: 08/08/18 13:00 Dose: Not Given Polyethylene Glycol (Miralax) 17 gm PO 1700 [facility] Last Admin: 08/08/18 09:03 Dose: 17 gm Senna/Docusate Sodium (Senokot S) 2 tab PO BID PRN PRN Reason: Constipation Last Admin: 08/07/18 23:04 Dose: 2 tab Simethicone (Mylicon Chewable) 80 mg PO Q4H PRN PRN Reason: Gas Pain Last Admin: 08/08/18 12:56 Dose: 80 mg Simvastatin (Zocor) 10 mg PO HS [facility] Last Admin: 08/07/18 21:37 Dose: 10 mg Sodium Chloride (Flush - Normal Saline) 10 ml IVF PRN PRN PRN Reason: Saline Flush Sodium Chloride (Flush - Normal Saline) 10 ml IVF PRN PRN PRN Reason: Saline Flush Sodium Chloride (Flush - Normal Saline) 10 ml IVF PRN PRN PRN Reason: Saline Flush Temazepam (Restoril) 15 mg PO HS PRN PRN Reason: Insomnia Last Admin: 08/07/18 22:30 Dose: 15 mg Vitamin B Complex/Vit C/Folic Acid (Nephro-Mimi Tablet) 1 tab PO QAM [facility] Last Admin: 08/08/18 09:02 Dose: 1 tab
[2018-08-08] MEDS ORDERED: Rocuronium Bromide 10 MG/ML (10ML VIAL) ONE (15:54)
[2018-08-08] MEDS ORDERED: Ondansetron PF 4 MG/2 ML Vial ONE (15:54)
[2018-08-08] MEDS ORDERED: PROPOFOL 200 MG/20 ML VIAL ONE (15:54)
[2018-08-08] MEDS ORDERED: Glycopyrrolate 0.2 MG/ML 5 ML SYRINGE ONE (15:54)
[2018-08-08] MEDS: Simvastatin 20 MG TAB PO SCH (20:23)
[2018-08-08] MEDS: Loratadine 10 MG TAB PO SCH (20:24)
[2018-08-08] MEDS: Cyclobenzaprine 10 MG TAB PO PRN (20:33)
[2018-08-08] MEDS: Temazepam 15 MG CAP PO PRN (22:06)
[2018-08-08] MEDS: Acetaminophen 325 MG TAB PO PRN (22:06)
[2018-08-09] MEDS: Acetaminophen 325 MG TAB PO PRN (04:18)
[2018-08-09 05:55] LABS: #Basophils 0.1 thou/uL (0.0-0.2); #Eosinphils 1.1 thou/uL (0.0-0.7); #Lymphocytes 1.8 thou/uL (1.20-3.40); #Monocytes 0.5 thou/uL (0.11-0.59); #Neutrophils 3.2 thou/uL (1.40-6.50); %Basophils 1.1 % (0.0-1.0); %Eosinophils 16.7 % (0.0-10.0); %Lymphocytes 26.5 % (21.0-51.0); %Monocytes 7.8 % (0.0-10.0); %Neutrophils 47.8 % (42.0-75.0); Hemoglobin 6.8 g/dL (12.0-16.0); Mean Corpuscular Hemoglobin 31.2 pg (27.0-31.0); Mean Corpuscular Volume 97.3 fL (78.0-98.0); Mean Platelet Volume 8.8 fL (7.4-10.4); Platelet Count 274 thou/uL (130-400); RBC Distribution Width 14.1 % (11.5-14.5); Red Blood Cell (RBC) Count 2.19 mill/uL (4.20-5.40); White Blood Cell (WBC) Count 6.7 thou/uL (4.8-10.8)
[2018-08-09] MEDS: Escitalopram Oxalate 20 mg Tablet PO SCH (08:32)
[2018-08-09] MEDS: Folic Acid/Vit B Comp W-C PO SCH (08:32)
[2018-08-09] MEDS: Calcium Acetate 667 MG CAP PO SCH ×3 (08:32→16:16)
[2018-08-09] MEDS: Docusate 100 MG CAP PO SCH ×2 (08:32→19:43)
[2018-08-09] MEDS: buPROPion HCl 100 MG TAB PO SCH ×2 (08:33→19:42)
[2018-08-09] MEDS: Carvedilol 3.125 MG TAB PO SCH ×2 (08:33→19:43)
[2018-08-09] MEDS: Fluticasone Propionate Nasal Spray 16 gm Bottle NASAL SCH (08:34)
[2018-08-09] MEDS: Pantoprazole 40 MG VIAL IVP SCH (08:43)
[2018-08-09] MEDS ORDERED: HYDROcodone/Acetaminophen 7.5/325 mg Tablet PO SCH (09:30)
--- NOTE | 2018-08-09 11:02 | PRG ---
DATE OF SERVICE: SUBJECTIVE: Ms. Rodriguez is a 68-year-old white female with ESRD and followed by the [facility] for her maintenance hemodialysis. She underwent dialysis last Friday without any difficulty. 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 She underwent removal of a right hip hemiarthroplasty, doing well. The patient complained of postop pain, but no chest pain or shortness of breath. OBJECTIVE: VITAL SIGNS: Blood pressure 123/50, heart rate 73, respiratory rate 18, temperature 98.4, and pulse ox 96%. GENERAL: Awake, supine, comfortable, not in overt distress. SKIN: Adequate turgor. HEENT: She has pale conjunctivae. Anicteric sclerae. NECK: No neck mass. No carotid bruits. No JVD. CHEST: No deformities. LUNGS: Clear breath sounds. HEART: Normal sinus rhythm. No murmur. No gallops. No rubs. ABDOMEN: Globular, soft, nontender. No masses. EXTREMITIES: No edema. No deformities. MEDICATIONS: Medications of August 09, 2018, was reviewed. LABORATORY DATA: Laboratories of August 09, 2018, white count 6.7, hemoglobin is 6.8. August 07, 2018; sodium 132, potassium 4.5, chloride 100, carbon dioxide 21, BUN 35, creatinine 3.81. ASSESSMENT AND PLAN: 1. Anemia. Consider transfusing 1 unit of packed RBC with this patient. Continue weekly Epogen. 2. End-stage renal disease, stable. No indication for any emergent hemodialysis. Continue current hemodialysis regimen on Friday, Friday, and Friday. 3. 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 4. Continue supportive care. Job ID: [id number]
[2018-08-09] MEDS ORDERED: Morphine 4 MG/ML VIAL SLOW IVP SCH (12:15)
--- NOTE | 2018-08-09 14:47 | PDOC.PN ---
- Subjective Encounter Start Date: 08/09/18 Encounter Start Time: 11:35 Subjective: pt up in bed complains of pain to right hip - Objective Resuscitation Status - Order Detail: 07/29/18 09:57 Resuscitation Status Routine Resuscitation Status: FULL: Full Resuscitation Discussed with: Patient Vital Signs & Weight: Vital Signs (12 hours) Temp Pulse Resp BP Pulse Ox 08/09/18 12:28 98.4 F 70 18 113/42 L 93 L 08/09/18 08:19 98.4 F 73 18 123/50 L 96 08/09/18 03:57 97.8 F 66 20 105/52 L 95 Weight Admit Weight 122 lb Weight 122 lb 5.705 oz Most Recent Monitor Data Heart Rate from ECG 79 NIBP 126/66 NIBP BP-Mean 86 Respiration from ECG 18 SpO2 98 I&O: 08/08/18 08/09/18 08/10/18 06:59 06:59 06:59 Intake Total 560 1350 Balance 560 1350 Result Diagrams: 08/09/18 05:20 08/07/18 06:32 Phys Exam - Physical Examination Neck: no nodes, no JVD, supple, full ROM Respiratory: no wheezing, no rales, no rhonchi, clear to auscultation bilateral Cardiovascular: RRR, no significant murmur, no rub, gallop, irregular Gastrointestinal: soft, non-tender, no distention, positive bowel sounds Dx/Plan (1) Erosive esophagitis Code(s): K22.10 - ULCER OF ESOPHAGUS WITHOUT BLEEDING Status: Acute (2) Acute on chronic blood loss anemia Code(s): D62 - ACUTE POSTHEMORRHAGIC ANEMIA Status: Acute Comment: will try to give 2 units with dialysis today (3) MRSA infection Code(s): A49.02 - METHICILLIN RESIS STAPH INFECTION, UNSP SITE Status: Acute Comment: right hip, likely of artificial hip, orth and ID consulted, on Vanc (4) Post op infection Code(s): T81.40XA - INFECTION FOLLOWING A PROCEDURE, UNSPECIFIED, INIT Status : Acute (5) Upper GI bleed Code(s): K92.2 - GASTROINTESTINAL HEMORRHAGE, UNSPECIFIED Status: Acute Comment: errosive esophagitis on EGD, Hgb still low, transfusion never given last night, will need to transfuse 2 more units (6) ESRD (end stage renal disease) on dialysis Code(s): N18.6 - END STAGE RENAL DISEASE; Z99.2 - DEPENDENCE ON RENAL DIALYSIS Status: Acute - Plan will give her one unit of blood -: will give her some morphine -: pt will need snf -: will change protonix to po * . Review of Systems - Review of Systems Respiratory: negative: Cough, Dry, Shortness of Breath, Hemoptysis, SOB with Excertion, Pleuritic Pain, Sputum, Wheezing Cardiovascular: negative: chest pain, palpitations, orthopnea, paroxysmal nocturnal dyspnea, edema, light headedness, other Gastrointestinal: negative: Nausea, Vomiting, Abdominal Pain, Diarrhea, Constipation, Melena, Hematochezia, Other - Medications/Allergies Allergies/Adverse Reactions: Allergies Allergy/AdvReac Type Severity Reaction Status Date / Time atorvastatin calcium Allergy Intermediate Rash Verified 05/13/18 17:06 [From Lipitor] cefuroxime axetil Allergy Intermediate Rash Verified 05/13/18 17:06 [From Ceftin] meperidine HCl [From Demerol] Allergy Intermediate SHAKING Verified 05/13/18 17: 06 nitrofurantoin Allergy Intermediate Nausea Verified 05/13/18 17:06 [From Macrodantin] Medications: Current Medications Acetaminophen (Tylenol) 650 mg PO Q4H PRN PRN Reason: Headache/Fever/Mild Pain (1-3) Last Admin: 08/09/18 04:18 Dose: 650 mg Acetaminophen (Tylenol) 650 mg [place] Q4H PRN PRN Reason: Headache/Fever/Mild Pain (1-3) Hydrocodone Bitart/Acetaminophen ([place] 7.5/325) 1 tab PO Q4H PRN PRN Reason: PAIN 1-5 Hydrocodone Bitart/Acetaminophen ([place] 7.5/325) 2 tab PO Q4H PRN PRN Reason: PAIN 6-10 Bupropion HCl (Wellbutrin) 100 mg PO BID [facility] Last Admin: 08/09/18 08:33 Dose: 100 mg Calcium Acetate (Phoslo) 1,334 mg PO TID-[facility] Last Admin: 08/09/18 08:33 Dose: 1,334 mg Carvedilol (Coreg) 3.125 mg PO BID [facility] Last Admin: 08/09/18 08:33 Dose: 3.125 mg Cyclobenzaprine HCl (Flexeril) 10 mg PO TID PRN PRN Reason: Muscle Spasm Last Admin: 08/08/18 20:33 Dose: 10 mg Docusate Sodium (Colace) 100 mg PO BID [facility] Last Admin: 08/09/18 08:32 Dose: 100 mg Escitalopram Oxalate (Lexapro) 20 mg PO DAILY [facility] Last Admin: 08/09/18 08:32 Dose: 20 mg Fluticasone Propionate (Flonase Nasal [place]) 1 gm NASAL DAILY [facility] Last Admin: 08/09/18 08:34 Dose: 1 inh Guaifenesin/Dextromethorphan (Robitussin Dm) 15 ml PO Q4H PRN PRN Reason: Cough Heparin Sodium (Porcine) (Heparin Lock Flush 100 Units/Ml) 500 units IVF Q12HR PRN PRN Reason: Heparin Flush Vancomycin HCl 1 gm/ Device 200 mls @ 200 mls/hr IVPB [facility] Vancomycin HCl 750 mg/ Sodium (Chloride) 250 mls @ 250 mls/hr IVPB [facility] Vancomycin HCl 500 mg/ Sodium (Chloride) 100 mls @ 100 mls/hr IVPB [facility] Last Admin: 08/07/18 19:31 Dose: 100 mls Vancomycin HCl 250 mg/ Sodium (Chloride) 100 mls @ 100 mls/hr IVPB [facility] Last Admin: 07/31/18 15:36 Dose: 100 mls Loperamide HCl (Imodium) 2 mg PO DAILY PRN PRN Reason: Diarrhea/Loose Stools Loratadine (Claritin) 10 mg PO [facility] Last Admin: 08/08/18 20:24 Dose: 10 mg Miscellaneous Medication (Vancomycin Sliding Scale) 1 each IVPB .MWF DIALYSIS PRN PRN Reason: LABS Miscellaneous Medication (Pharmacy To Dose) 0 each IVPB .DIALYSIS-MWF PRN PRN Reason: Pharmacy to dose: VANCOMYCIN Hold Vancomycin For (Level >20) 0 each FS .AT DIALYSIS [facility] Ondansetron HCl (Zofran Odt) 4 mg PO Q6H PRN PRN Reason: Nausea/Vomiting Last Admin: 08/08/18 20:33 Dose: 4 mg Ondansetron HCl (Zofran) 4 mg IVP Q6H PRN PRN Reason: Nausea/Vomiting Last Admin: 06/07/19 09:29 Dose: 4 mg Pantoprazole Sodium (Protonix) 40 mg IVP Q12HR [facility] Last Admin: 08/09/18 08:43 Dose: 40 mg Polyethylene Glycol (Miralax) 17 gm PO 1700 [facility] Last Admin: 08/08/18 09:03 Dose: 17 gm Senna/Docusate Sodium (Senokot S) 2 tab PO BID PRN PRN Reason: Constipation Last Admin: 08/07/18 23:04 Dose: 2 tab Simethicone (Mylicon Chewable) 80 mg PO Q4H PRN PRN Reason: Gas Pain Last Admin: 08/08/18 12:56 Dose: 80 mg Simvastatin (Zocor) 10 mg PO HS [facility] Last Admin: 08/08/18 20:23 Dose: 10 mg Sodium Chloride (Flush - Normal Saline) 10 ml IVF PRN PRN PRN Reason: Saline Flush Sodium Chloride (Flush - Normal Saline) 10 ml IVF PRN PRN PRN Reason: Saline Flush Sodium Chloride (Flush - Normal Saline) 10 ml IVF PRN PRN PRN Reason: Saline Flush Vitamin B Complex/Vit C/Folic Acid (Nephro-Mimi Tablet) 1 tab PO QAM [facility] Last Admin: 08/09/18 08:32 Dose: 1 tab
[2018-08-09] MEDS: Cyclobenzaprine 10 MG TAB PO PRN ×2 (14:59→23:02)
[2018-08-09] MEDS: HYDROcodone/Acetaminophen 7.5/325 mg Tablet PO PRN ×2 (15:27→19:37)
--- NOTE | 2018-08-09 15:43 | PRG ---
DATE OF SERVICE: 08/09/2018 SUBJECTIVE: Ms. Rodriguez is awake, alert, oriented, appears chronically ill, in no acute distress. No respiratory symptoms. No abdominal pain. Moderate pain in the right hip region. OBJECTIVE: VITAL SIGNS: T-max 98.5, blood pressure 113/42, pulse 70, respirations 18, O2 saturation 93% to 96%. HEENT: Ocular movements conjugate. LUNGS: Clear to auscultation and percussion. HEART: S1 and S2. Regular rate. ABDOMEN: Soft. Not distended. MUSCULOSKELETAL: Right hip with a dressing in place. LABORATORY DATA: White cell count 6.7, hemoglobin 6.8, MCV 97, platelets 274. Differential was normal. The hip tissue with MRSA retrieved. 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 The end date of therapy estimated at the end of August. After that, suppressive therapy with Bactrim adjusted for renal function plus oral rifampin for about a month and a half and then suppressive low-dose Bactrim after that. Job ID: [id number]
[2018-08-09] MEDS: Polyethylene Glycol 3350 17 GM Packet PO SCH (16:16)
[2018-08-09] MEDS: Simvastatin 20 MG TAB PO SCH (19:42)
[2018-08-09] MEDS: Loratadine 10 MG TAB PO SCH (19:43)
[2018-08-09] MEDS ORDERED: Temazepam 15 MG CAP PO PRN (22:44)
[2018-08-09] MEDS: Temazepam 15 MG CAP PO PRN (22:53)
[2018-08-10] MEDS: HYDROcodone/Acetaminophen 7.5/325 mg Tablet PO PRN ×4 (04:28→22:53)
[2018-08-10] MEDS: Escitalopram Oxalate 20 mg Tablet PO SCH (08:58)
[2018-08-10] MEDS: Calcium Acetate 667 MG CAP PO SCH ×3 (08:58→17:33)
[2018-08-10] MEDS: Folic Acid/Vit B Comp W-C PO SCH (08:58)
[2018-08-10] MEDS: Carvedilol 3.125 MG TAB PO SCH ×2 (08:58→20:28)
[2018-08-10] MEDS: Docusate 100 MG CAP PO SCH ×2 (08:58→20:28)
[2018-08-10] MEDS: buPROPion HCl 100 MG TAB PO SCH ×2 (08:58→20:28)
[2018-08-10] MEDS: Fluticasone Propionate Nasal Spray 16 gm Bottle NASAL SCH (08:58)
--- NOTE | 2018-08-10 09:57 | PRG ---
DATE OF SERVICE: 08/10/2018 SUBJECTIVE: Ms. Rodriguez is a 68-year-old white female with ESRD and followed by the [facility] for maintenance hemodialysis. She is scheduled for dialysis today. She also was found to have an infected prosthesis and right hip joint implant was removed. She continues to be on IV antibiotics. In the interim, she was noted to be anemic, received 1 unit of packed RBC yesterday. No other complaints today. No chest pain or shortness of breath. OBJECTIVE: VITAL SIGNS: Blood pressure 115/57, heart rate 66, respiratory rate 16, temperature 98.1, and pulse ox 93%. GENERAL: Awake, alert, comfortable, not in overt distress. SKIN: Adequate turgor. HEENT: She has slightly pale conjunctivae. Anicteric sclerae. NECK: No neck mass. No carotid bruits. No JVD. CHEST: No deformities. LUNGS: Clear breath sounds. No wheezing. No crackles. HEART: Normal sinus rhythm. No murmurs. No gallops. No rubs. ABDOMEN: Globular, soft, and nontender. EXTREMITIES: No edema. MEDICATIONS: Medications of August 10, 2018, was reviewed. LABORATORY DATA: Laboratories of August 09, 2018: Hemoglobin 6.8. Sodium 132, potassium 4.5, chloride 100, carbon dioxide 21, BUN 35, creatinine 3.81, and calcium 8.2. ASSESSMENT AND PLAN: 1. End-stage renal disease, stable. We will continue current Friday, Friday, and Friday dialysis. Fluid removal only as tolerated. Using no heparin. 2. Anemia, status post blood transfusion - received 1 unit of packed RBC. Continuing weekly Epogen. 3. Infected right hip joint prosthesis - the patient underwent surgery, where the right hip hemiarthroplasty was removed. ID following/Surgery following. Agree with current management. Job ID: [id number]
[2018-08-10 10:07] LABS: Hemoglobin 8.4 g/dL (12.0-16.0)
[2018-08-10] MEDS ORDERED: Vancomycin HCl 500 MG in Sodium Chloride 0.9% 100 ML IVPB SCH (14:00)
[2018-08-10 14:26] LABS: Vancomycin, Random 7.8 ug/mL (See Comment)
[2018-08-10] MEDS ORDERED: Vancomycin HCl 750 MG in Sodium Chloride 0.9% 250 ML 250 ML IVPB SCH (15:00)
[2018-08-10] MEDS ORDERED: Heparin 10,000 UNITS/1 ML VIAL ONE (15:00)
[2018-08-10] MEDS: Vancomycin HCl 750 MG in Sodium Chloride 0.9% 250 ML 250 ML IVPB SCH (15:25)
[2018-08-10] MEDS: Polyethylene Glycol 3350 17 GM Packet PO SCH (17:33)
--- NOTE | 2018-08-10 18:41 | PDOC.PN ---
- Subjective Encounter Start Date: 08/10/18 Encounter Start Time: 16:00 Doing well. No new complaints. No pain. - Objective Resuscitation Status - Order Detail: 07/29/18 09:57 Resuscitation Status Routine Resuscitation Status: FULL: Full Resuscitation Discussed with: Patient Vital Signs & Weight: Vital Signs (12 hours) Temp Pulse Resp BP Pulse Ox 08/10/18 08:36 98.1 F 66 16 115/57 L 93 L Weight Admit Weight 122 lb Weight 122 lb 5.705 oz Most Recent Monitor Data Heart Rate from ECG 79 NIBP 126/66 NIBP BP-Mean 86 Respiration from ECG 18 SpO2 98 I&O: 08/09/18 08/10/18 08/11/18 06:59 06:59 06:59 Intake Total 1350 1150 Output Total 300 Balance 1350 850 Result Diagrams: 08/10/18 09:45 08/07/18 06:32 Phys Exam - Physical Examination Constitutional: NAD Respiratory: no wheezing, no rales, no rhonchi Cardiovascular: RRR, no rub Grade II M Gastrointestinal: soft, non-tender, no distention, positive bowel sounds Musculoskeletal: no edema Psychiatric: normal affect, A&O x 3 Skin: normal turgor Dx/Plan (1) Erosive esophagitis Code(s): K22.10 - ULCER OF ESOPHAGUS WITHOUT BLEEDING Status: Acute (2) Acute on chronic blood loss anemia Code(s): D62 - ACUTE POSTHEMORRHAGIC ANEMIA Status: Acute Comment: will try to give 2 units with dialysis today (3) MRSA infection Code(s): A49.02 - METHICILLIN RESIS STAPH INFECTION, UNSP SITE Status: Acute Comment: right hip, likely of artificial hip, orth and ID consulted, on Vanc (4) Upper GI bleed Code(s): K92.2 - GASTROINTESTINAL HEMORRHAGE, UNSPECIFIED Status: Acute Comment: errosive esophagitis on EGD, Hgb still low, transfusion never given last night, will need to transfuse 2 more units (5) CAD (coronary artery disease) Code(s): I25.10 - ATHSCL HEART DISEASE OF [place] CORONARY ARTERY W/O ANG PCTRS Status: Chronic (6) ESRD (end stage renal disease) on dialysis Code(s): N18.6 - END STAGE RENAL DISEASE; Z99.2 - DEPENDENCE ON RENAL DIALYSIS Status: Chronic Comment: Maintenance HD (7) Hypertension Code(s): I10 - ESSENTIAL (PRIMARY) HYPERTENSION Status: Chronic Qualifiers: - Plan * S/P removal of infected right hip hardware. * Receiving Vanc with dialysis * Will need Vanc through August, the change to po regimen. * Stable. * DC planning.
[2018-08-10] MEDS: Simvastatin 20 MG TAB PO SCH (20:27)
[2018-08-10] MEDS: Cyclobenzaprine 10 MG TAB PO PRN (20:28)
[2018-08-10] MEDS: Loratadine 10 MG TAB PO SCH (20:28)
[2018-08-10] MEDS: Temazepam 15 MG CAP PO PRN (21:05)
[2018-08-11] MEDS: HYDROcodone/Acetaminophen 7.5/325 mg Tablet PO PRN ×4 (05:21→21:35)
[2018-08-11] MEDS: Carvedilol 3.125 MG TAB PO SCH ×2 (09:34→20:42)
[2018-08-11] MEDS: Acetaminophen 325 MG TAB PO PRN (09:34)
[2018-08-11] MEDS: Folic Acid/Vit B Comp W-C PO SCH (09:34)
[2018-08-11] MEDS: Calcium Acetate 667 MG CAP PO SCH ×3 (09:34→18:18)
[2018-08-11] MEDS: buPROPion HCl 100 MG TAB PO SCH ×2 (09:34→20:43)
[2018-08-11] MEDS: Fluticasone Propionate Nasal Spray 16 gm Bottle NASAL SCH (09:35)
[2018-08-11] MEDS: Escitalopram Oxalate 20 mg Tablet PO SCH (09:35)
[2018-08-11] MEDS: Docusate 100 MG CAP PO SCH ×2 (09:35→20:43)
--- NOTE | 2018-08-11 10:01 | PRG ---
DATE OF SERVICE: SUBJECTIVE: Ms. Rodriguez is a 68-year-old white female, who was admitted initially for a GI bleed. We are following her up for maintenance hemodialysis. She is tolerating dialysis. In addition due to an infection/infected prosthesis of the right hip joint, the right hip joint implant was removed. No new complaints today, doing well. She receives p.r.n. blood transfusion. The patient complains of no chest pain or shortness of breath. OBJECTIVE: VITAL SIGNS: Blood pressure 119/52, heart rate 73, respiratory rate 18, temperature 97.8, and pulse ox 94%. GENERAL: Awake, alert, comfortable, not in distress. SKIN: Adequate turgor. HEENT: Slightly pale conjunctivae. Anicteric sclerae. No neck mass. No carotid bruits. No JVD. CHEST: No deformities. LUNGS: Clear breath sounds. HEART: Normal sinus rhythm. No murmur. No gallops or rubs. ABDOMEN: Globular, soft, and nontender. No masses. EXTREMITIES: No edema. No deformities. MEDICATIONS: Medications of August 11, 2018, was reviewed. LABORATORY DATA: Laboratories of August 10, 2018, hemoglobin is 8.4. August 07, 2018, BUN 35 and creatinine 3.81. August 08, 2018, glucose 222. ASSESSMENT AND PLAN: 1. Anemia - p.r.n. blood transfusion. Continuing weekly Epogen. Recheck CBC in a.m. 2. End-stage renal disease, stable. We will continue current Friday, Friday, and Friday hemodialysis. Avoid heparin use for the moment. 3. Infected prosthesis - the patient is status post removal of her right hip joint implant. 4. Recheck basic met and CBC in a.m. Job ID: [id number]
[2018-08-11] MEDS: Simethicone Chewable 80 MG TAB PO PRN (11:18)
--- NOTE | 2018-08-11 15:14 | PRG ---
DATE OF SERVICE: 08/11/2018 SUBJECTIVE: Clarissa is a 68-year-old female, who is postoperative day 6 from explantation of right hip cemented hemiarthroplasty. She is improving slowly, but surely, and her hemoglobin and hematocrit have improved up 8.4. She has been transfused 5 units of blood. OBJECTIVE: GENERAL: She is alert, oriented, appropriate with examiner, responsive. VITAL SIGNS: Temperature 97.8, pulse 73, respiratory rate 18, O2 saturation is 94% on room air, blood pressure is 119/52. EXTREMITIES: Incision is clean. No erythema. No strikethrough. Well-approximated skin is noted. No drainage. IMPRESSION: 1. A 68-year-old female with dialysis, hypophosphatemia with hypocalcemia with resultant osteopenia. 2. Failed right hip hemiarthroplasty secondary to pyogenic septic arthritis. PLAN: 1. Continue current care. Defer to Medicine and Infectious Disease. 2. Continue [facility] transfers, but give consideration to placement versus discharge home. Job ID: [id number]
--- NOTE | 2018-08-11 15:52 | PDOC.PN ---
- Subjective Encounter Start Date: 08/11/18 Encounter Start Time: 14:40 Doing well. Had some pain after PT earlier, but much better now. - Objective Resuscitation Status - Order Detail: 07/29/18 09:57 Resuscitation Status Routine Resuscitation Status: FULL: Full Resuscitation Discussed with: Patient Vital Signs & Weight: Vital Signs (12 hours) Temp Pulse Resp BP Pulse Ox 08/11/18 07:15 97.8 F 73 18 119/52 L 94 L Weight Admit Weight 122 lb Weight 122 lb 5.705 oz Most Recent Monitor Data Heart Rate from ECG 79 NIBP 126/66 NIBP BP-Mean 86 Respiration from ECG 18 SpO2 98 I&O: 08/10/18 08/11/18 08/12/18 06:59 06:59 06:59 Intake Total 1150 450 Output Total 300 400 Balance 850 50 Result Diagrams: 08/10/18 09:45 08/07/18 06:32 Phys Exam - Physical Examination Constitutional: NAD Respiratory: no wheezing, no rales, no rhonchi, clear to auscultation bilateral Cardiovascular: RRR, no significant murmur Gastrointestinal: soft, non-tender, no distention, positive bowel sounds Stoma. Musculoskeletal: no edema Neurological: non-focal Psychiatric: normal affect, A&O x 3 Dx/Plan (1) Erosive esophagitis Code(s): K22.10 - ULCER OF ESOPHAGUS WITHOUT BLEEDING Status: Acute (2) Acute on chronic blood loss anemia Code(s): D62 - ACUTE POSTHEMORRHAGIC ANEMIA Status: Acute Comment: will try to give 2 units with dialysis today (3) MRSA infection Code(s): A49.02 - METHICILLIN RESIS STAPH INFECTION, UNSP SITE Status: Acute Comment: right hip, likely of artificial hip, orth and ID consulted, on Vanc (4) Upper GI bleed Code(s): K92.2 - GASTROINTESTINAL HEMORRHAGE, UNSPECIFIED Status: Acute Comment: errosive esophagitis on EGD, Hgb still low, transfusion never given last night, will need to transfuse 2 more units (5) CAD (coronary artery disease) Code(s): I25.10 - ATHSCL HEART DISEASE OF [place] CORONARY ARTERY W/O ANG PCTRS Status: Chronic (6) ESRD (end stage renal disease) on dialysis Code(s): N18.6 - END STAGE RENAL DISEASE; Z99.2 - DEPENDENCE ON RENAL DIALYSIS Status: Chronic Comment: Maintenance HD (7) Hypertension Code(s): I10 - ESSENTIAL (PRIMARY) HYPERTENSION Status: Chronic Qualifiers: - Plan * 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 * Continue Vanc at HD. * Ready for discharge. Working on placement. * Continue dialysis.
[2018-08-11] MEDS: Polyethylene Glycol 3350 17 GM Packet PO SCH (18:17)
[2018-08-11] MEDS: Simvastatin 20 MG TAB PO SCH (20:42)
[2018-08-11] MEDS: Cyclobenzaprine 10 MG TAB PO PRN (20:42)
[2018-08-11] MEDS: Loratadine 10 MG TAB PO SCH (20:42)
[2018-08-11] MEDS: Temazepam 15 MG CAP PO PRN (21:36)
[2018-08-12] MEDS: HYDROcodone/Acetaminophen 7.5/325 mg Tablet PO PRN ×3 (05:52→17:35)
[2018-08-12 06:34] LABS: #Basophils 0.1 thou/uL (0.0-0.2); #Eosinphils 1.1 thou/uL (0.0-0.7); #Lymphocytes 1.6 thou/uL (1.20-3.40); #Monocytes 0.5 thou/uL (0.11-0.59); #Neutrophils 2.5 thou/uL (1.40-6.50); %Basophils 1.7 % (0.0-1.0); %Eosinophils 18.3 % (0.0-10.0); %Lymphocytes 28.1 % (21.0-51.0); %Monocytes 8.1 % (0.0-10.0); %Neutrophils 43.8 % (42.0-75.0); Hemoglobin 8.3 g/dL (12.0-16.0); Mean Corpuscular Hemoglobin 31.1 pg (27.0-31.0); Mean Corpuscular Volume 97.2 fL (78.0-98.0); Mean Platelet Volume 8.3 fL (7.4-10.4); Platelet Count 325 thou/uL (130-400); RBC Distribution Width 14.1 % (11.5-14.5); Red Blood Cell (RBC) Count 2.68 mill/uL (4.20-5.40); White Blood Cell (WBC) Count 5.8 thou/uL (4.8-10.8)
[2018-08-12 06:58] LABS: Anion Gap 11 mmol/L (10-20); BUN (Urea Nitrogen) 35 mg/dL (9.8-20.1); Calc. Creatinine Clearance 13 mL/min (70-130); Calcium 8.9 mg/dL (7.8-10.44); Carbon Dioxide 27 mmol/L (23-31); Chloride 102 mmol/L (98-107); Estimated GFR-MDRD 13; Glucose 76 mg/dL (80-115); Potassium 4.9 mmol/L (3.5-5.1); Sodium 135 mmol/L (136-145)
[2018-08-12 08:45] LABS: Vancomycin, Random 13.2 ug/mL (See Comment)
[2018-08-12] MEDS ORDERED: EPOETIN ALFA-EPBX (ESRD) 10,000 UNIT/ML VIAL SC SCH ×2 (08:45→18:00)
[2018-08-12] MEDS: Calcium Acetate 667 MG CAP PO SCH ×3 (09:03→17:36)
--- NOTE | 2018-08-12 09:46 | PRG ---
DATE OF SERVICE: 08/12/2018 SUBJECTIVE: Ms. Rodriguez is a 68-year-old white female with ESRD and followed up by the [facility] Service for maintenance hemodialysis. She is undergoing hemodialysis using no heparin. Fluid removal as tolerated. Please note, this patient initially was admitted for GI bleed, which has stabilized. In addition, she had received surgery for infection of her right hip joint prosthesis - the said right hip joint implant was removed. No new complaints today. No chest pain or shortness of breath. OBJECTIVE: VITAL SIGNS: Blood pressure 129/54, heart rate 82, respiratory rate 18, temperature 98.1, and pulse ox 92%. GENERAL: Noted to be awake, alert, comfortable, not in distress. SKIN: Adequate turgor. HEENT: Slightly pale conjunctivae. Anicteric sclerae. NECK: No neck mass. No carotid bruits. No JVD. CHEST: No deformities. LUNGS: Clear breath sounds. HEART: Normal sinus rhythm. No murmur. No gallops. No rubs. ABDOMEN: Globular, soft, and nontender. No masses. EXTREMITIES: No edema. No deformities. MEDICATIONS: Medications of August 12, 2018, were reviewed. LABORATORY DATA: Laboratories of August 12, 2018; white count 5.8, hemoglobin 8.3, hematocrit 26. Sodium 135, potassium 4.9, chloride 102, carbon dioxide 27, BUN 35, creatinine 3.59, glucose 76, and calcium 8.9. ASSESSMENT AND PLAN: 1. End-stage renal disease, stable. Continue current Friday, Friday, and Friday hemodialysis, minimizing heparin to no heparin at all. Fluid removal only as tolerated. 2. Anemia, continuing weekly Epogen - p.r.n. blood transfusion. We will adjust Epogen to 10,000 units subcu q.week. 3. Status post gastrointestinal bleed - resolved. Please note, this patient in the past has refused colonoscopy. 4. Infected right hip joint prosthesis - status post hardware removal. Surgery is following, on antibiotics. Job ID: [id number]
[2018-08-12] MEDS: Vancomycin HCl 500 MG in Sodium Chloride 0.9% 100 ML IVPB SCH (10:35)
[2018-08-12] MEDS: Docusate 100 MG CAP PO SCH ×2 (12:43→20:20)
[2018-08-12] MEDS: Carvedilol 3.125 MG TAB PO SCH ×2 (12:43→20:20)
[2018-08-12] MEDS: buPROPion HCl 100 MG TAB PO SCH ×2 (12:43→20:20)
[2018-08-12] MEDS: Fluticasone Propionate Nasal Spray 16 gm Bottle NASAL SCH (13:19)
[2018-08-12] MEDS: Escitalopram Oxalate 20 mg Tablet PO SCH (13:20)
[2018-08-12] MEDS: Folic Acid/Vit B Comp W-C PO SCH (13:20)
[2018-08-12] MEDS ORDERED: Heparin 10,000 UNITS/1 ML VIAL ONE (15:00)
--- NOTE | 2018-08-12 15:12 | PDOC.PN ---
- Subjective Encounter Start Date: 08/12/18 Encounter Start Time: 14:00 Doing well overall. No complaints. Ready to go to next site of care. - Objective Resuscitation Status - Order Detail: 07/29/18 09:57 Resuscitation Status Routine Resuscitation Status: FULL: Full Resuscitation Discussed with: Patient Vital Signs & Weight: Vital Signs (12 hours) Temp Pulse Resp BP Pulse Ox 08/12/18 07:10 98.1 F 82 18 129/54 L 92 L Weight Admit Weight 122 lb Weight 122 lb 5.705 oz Most Recent Monitor Data Heart Rate from ECG 79 NIBP 126/66 NIBP BP-Mean 86 Respiration from ECG 18 SpO2 98 I&O: 08/11/18 08/12/18 08/13/18 06:59 06:59 06:59 Intake Total 450 Output Total 400 Balance 50 Result Diagrams: 08/12/18 05:48 08/12/18 05:48 Phys Exam - Physical Examination Constitutional: NAD Respiratory: no wheezing, no rales, no rhonchi Cardiovascular: RRR Gr II M Gastrointestinal: soft, non-tender Musculoskeletal: no edema Dx/Plan (1) Erosive esophagitis Code(s): K22.10 - ULCER OF ESOPHAGUS WITHOUT BLEEDING Status: Acute (2) Acute on chronic blood loss anemia Code(s): D62 - ACUTE POSTHEMORRHAGIC ANEMIA Status: Acute Comment: will try to give 2 units with dialysis today (3) MRSA infection Code(s): A49.02 - METHICILLIN RESIS STAPH INFECTION, UNSP SITE Status: Acute Comment: right hip, likely of artificial hip, orth and ID consulted, on Vanc (4) Upper GI bleed Code(s): K92.2 - GASTROINTESTINAL HEMORRHAGE, UNSPECIFIED Status: Acute Comment: errosive esophagitis on EGD, Hgb still low, transfusion never given last night, will need to transfuse 2 more units (5) CAD (coronary artery disease) Code(s): I25.10 - ATHSCL HEART DISEASE OF [place] CORONARY ARTERY W/O ANG PCTRS Status: Chronic (6) ESRD (end stage renal disease) on dialysis Code(s): N18.6 - END STAGE RENAL DISEASE; Z99.2 - DEPENDENCE ON RENAL DIALYSIS Status: Chronic Comment: Maintenance HD (7) Hypertension Code(s): I10 - ESSENTIAL (PRIMARY) HYPERTENSION Status: Chronic Qualifiers: - Plan * Continue Vanc with HD. * Ready for discharge. * Working on placement.
[2018-08-12] MEDS: Polyethylene Glycol 3350 17 GM Packet PO SCH (17:36)
[2018-08-12] MEDS: Simvastatin 20 MG TAB PO SCH (20:19)
[2018-08-12] MEDS: Loratadine 10 MG TAB PO SCH (20:20)
[2018-08-12] MEDS: Cyclobenzaprine 10 MG TAB PO PRN (20:23)
[2018-08-13] MEDS ORDERED: HYDROcodone/Acetaminophen 7.5/325 mg Tablet ONE (05:37)
[2018-08-13] MEDS ORDERED: Escitalopram Oxalate 20 mg Tablet ONE (07:33)
[2018-08-13] MEDS ORDERED: Carvedilol 3.125 MG TAB ONE (07:33)
[2018-08-13] MEDS ORDERED: Metoprolol Tartrate 50 MG TAB ONE (07:36)
[2018-08-13] MEDS: Escitalopram Oxalate 20 mg Tablet PO SCH (09:26)
[2018-08-13] MEDS: Docusate 100 MG CAP PO SCH ×2 (09:26→20:36)
[2018-08-13] MEDS: buPROPion HCl 100 MG TAB PO SCH ×2 (09:26→20:36)
[2018-08-13] MEDS: Carvedilol 3.125 MG TAB PO SCH ×2 (09:26→20:36)
[2018-08-13] MEDS: Calcium Acetate 667 MG CAP PO SCH ×3 (09:26→17:13)
[2018-08-13] MEDS: Folic Acid/Vit B Comp W-C PO SCH (09:27)
[2018-08-13] MEDS: Fluticasone Propionate Nasal Spray 16 gm Bottle NASAL SCH (09:27)
--- NOTE | 2018-08-13 09:53 | PRG ---
DATE OF SERVICE: 08/13/2018 SUBJECTIVE: Ms. Rodriguez is a 68-year-old white female with ESRD and followed up by the [facility]al Service for her maintenance hemodialysis. The patient was admitted due to initially GI bleed, which has stabilized. She has received p.r.n. blood transfusion, currently on maintenance Epogen. In addition, this patient has undergone removal of her right hip joint prosthesis due to an infection. Doing well. She is now being planned for discharge to a [facility]. No other complaints today. OBJECTIVE: VITAL SIGNS: Blood pressure is noted at 120/70 and heart rate 70. GENERAL: Awake, alert, comfortable, not in distress. SKIN: Adequate turgor. HEENT: She has a slightly pale conjunctivae. Anicteric sclerae. NECK: No neck mass. No carotid bruits. No JVD. CHEST: No deformities. LUNGS: Clear breath sounds. No wheezing. No crackles. HEART: Normal sinus rhythm. No murmur. No gallops. No rubs. ABDOMEN: Globular, soft, and nontender. No masses. MEDICATIONS: Medications of August 13, 2018, reviewed. LABORATORY DATA: Laboratories of August 12, 2018, reviewed. ASSESSMENT AND PLAN: 1. End-stage renal disease, stable. We will continue current Friday, Friday, and Friday hemodialysis. Again, fluid removal only as tolerated by the patient. No indication for any dialysis today. 2. Anemia. The patient is currently on weekly Epogen and p.r.n. blood transfusion. 3. Infected right hip joint prosthesis - status post hardware removal, doing well. Surgery is following. 4. Status post gastrointestinal bleed, resolved. Stable H and H. Agree with current management. Job ID: [id number]
[2018-08-13] MEDS: HYDROcodone/Acetaminophen 7.5/325 mg Tablet PO PRN ×2 (12:49→21:55)
[2018-08-13 16:48] LABS: Anion Gap 12 mmol/L (10-20); BUN (Urea Nitrogen) 21 mg/dL (9.8-20.1); Calc. Creatinine Clearance 19 mL/min (70-130); Calcium 9.1 mg/dL (7.8-10.44); Carbon Dioxide 28 mmol/L (23-31); Chloride 102 mmol/L (98-107); Estimated GFR-MDRD 19; Glucose 72 mg/dL (80-115); Potassium 4.1 mmol/L (3.5-5.1); Sodium 138 mmol/L (136-145); Vancomycin, Random 14.7 ug/mL (See Comment)
[2018-08-13] MEDS: Polyethylene Glycol 3350 17 GM Packet PO SCH (17:13)
[2018-08-13 17:24] LABS: Hemoglobin 9.2 g/dL (12.0-16.0); Mean Corpuscular HGB CONC 32.4 g/dL (32.0-36.0); Mean Corpuscular Hemoglobin 31.4 pg (27.0-31.0); Mean Corpuscular Volume 96.9 fL (78.0-98.0); Platelet Count 336 thou/uL (130-400); RBC Distribution Width 13.8 % (11.5-14.5); Red Blood Cell (RBC) Count 2.94 mill/uL (4.20-5.40); White Blood Cell (WBC) Count 5.7 thou/uL (4.8-10.8)
[2018-08-13 17:25] LABS: #Basophils 0.1 thou/uL (0.0-0.2); #Eosinphils 1.1 thou/uL (0.0-0.7); #Lymphocytes 1.8 thou/uL (1.20-3.40); #Monocytes 0.4 thou/uL (0.11-0.59); #Neutrophils 2.4 thou/uL (1.40-6.50); %Basophils 2.1 % (0.0-1.0); %Eosinophils 18.4 % (0.0-10.0); %Lymphocytes 30.9 % (21.0-51.0); %Monocytes 6.3 % (0.0-10.0); %Neutrophils 42.3 % (42.0-75.0); Mean Platelet Volume 8.2 fL (7.4-10.4)
[2018-08-13] MEDS: Cyclobenzaprine 10 MG TAB PO PRN (20:35)
[2018-08-13] MEDS: Simvastatin 20 MG TAB PO SCH (20:36)
[2018-08-13] MEDS: Loratadine 10 MG TAB PO SCH (20:36)
--- NOTE | 2018-08-13 20:43 | PDOC.PN ---
- Subjective Encounter Start Date: 08/13/18 Encounter Start Time: 11:10 Doing well. No complaints today. - Objective Resuscitation Status - Order Detail: 07/29/18 09:57 Resuscitation Status Routine Resuscitation Status: FULL: Full Resuscitation Discussed with: Patient Vital Signs & Weight: Vital Signs (12 hours) Temp Pulse Resp BP Pulse Ox 08/13/18 19:30 98.1 F 80 18 149/71 H 95 Weight Admit Weight 122 lb Weight 122 lb 5.705 oz Most Recent Monitor Data Heart Rate from ECG 79 NIBP 126/66 NIBP BP-Mean 86 Respiration from ECG 18 SpO2 98 Result Diagrams: 08/13/18 05:41 08/13/18 05:41 Phys Exam - Physical Examination Constitutional: NAD Respiratory: no wheezing, no rales, no rhonchi, clear to auscultation bilateral Cardiovascular: RRR Gr II M Gastrointestinal: soft, non-tender Musculoskeletal: no edema Dx/Plan (1) Erosive esophagitis Code(s): K22.10 - ULCER OF ESOPHAGUS WITHOUT BLEEDING Status: Acute (2) Acute on chronic blood loss anemia Code(s): D62 - ACUTE POSTHEMORRHAGIC ANEMIA Status: Acute Comment: will try to give 2 units with dialysis today (3) MRSA infection Code(s): A49.02 - METHICILLIN RESIS STAPH INFECTION, UNSP SITE Status: Acute Comment: right hip, likely of artificial hip, orth and ID consulted, on Vanc (4) Upper GI bleed Code(s): K92.2 - GASTROINTESTINAL HEMORRHAGE, UNSPECIFIED Status: Acute Comment: errosive esophagitis on EGD, Hgb still low, transfusion never given last night, will need to transfuse 2 more units (5) CAD (coronary artery disease) Code(s): I25.10 - ATHSCL HEART DISEASE OF [place] CORONARY ARTERY W/O ANG PCTRS Status: Chronic (6) ESRD (end stage renal disease) on dialysis Code(s): N18.6 - END STAGE RENAL DISEASE; Z99.2 - DEPENDENCE ON RENAL DIALYSIS Status: Chronic Comment: Maintenance HD (7) Hypertension Code(s): I10 - ESSENTIAL (PRIMARY) HYPERTENSION Status: Chronic Qualifiers: - Plan * Stable and ready for discharge. * Luis A out on Friday. * Awaiting placement in rehab facility.
[2018-08-13] MEDS: Temazepam 15 MG CAP PO PRN (21:54)
[2018-08-14] MEDS: HYDROcodone/Acetaminophen 7.5/325 mg Tablet PO PRN ×2 (05:53→13:05)
[2018-08-14 08:04] VITALS: BP 147/69; TEMP 97.7
[2018-08-14] MEDS: Calcium Acetate 667 MG CAP PO SCH ×2 (09:05→13:08)
[2018-08-14] MEDS: Docusate 100 MG CAP PO SCH ×2 (09:05→13:46)
--- NOTE | 2018-08-14 09:53 | PRG ---
DATE OF SERVICE: 08/14/2018 SUBJECTIVE: Ms. Rodriguez is a 68-year-old white female with ESRD. Currently, she is undergoing dialysis. I am at the bedside supervising her dialysis. She voices no new complaints today. She is status post right hip joint hardware removal. Also, anemia is stable at the present time with this patient. OBJECTIVE: VITAL SIGNS: Blood pressure is 147/69, heart rate 85, respiratory rate 18, temperature 97.7, and pulse ox 98%. GENERAL: Awake, alert, comfortable, not in distress. SKIN: Adequate turgor. HEENT: Pinkish conjunctivae. Anicteric sclerae. NECK: No neck mass. No carotid bruits. No JVD. CHEST: No deformities. LUNGS: Clear breath sounds. No wheezing. No crackles. HEART: Normal sinus rhythm. No murmurs, gallops, or rubs. ABDOMEN: Globular, soft, nontender. No masses. EXTREMITIES: No edema. No deformities. MEDICATIONS: Medications of August 14, 2018, reviewed. LABORATORY DATA: Laboratories of August 14, 2018, shows none done. On August 13, 2018, BUN 21, creatinine 2.5, potassium 4.1. Hemoglobin 9.2. ASSESSMENT AND PLAN: 1. End-stage renal disease, stable, continuing heparin free hemodialysis. Fluid removal only as tolerated. 2. Anemia, continuing weekly Epogen. Holding steady. 3. Status post gastrointestinal bleed, resolved. 4. Infected right hip joint prosthesis - status post hardware removal. Surgery is following. Doing well. We will recheck basic metabolic panel and CBC in a.m. Job ID: [id number]
[2018-08-14] MEDS: Vancomycin HCl 750 MG in Sodium Chloride 0.9% 250 ML 250 ML IVPB SCH (11:10)
[2018-08-14] MEDS ORDERED: Heparin 1,000 UNITS/ML VIAL ONE (11:11)
[2018-08-14] MEDS: Carvedilol 3.125 MG TAB PO SCH (13:06)
[2018-08-14] MEDS: Escitalopram Oxalate 20 mg Tablet PO SCH (13:07)
[2018-08-14] MEDS: Folic Acid/Vit B Comp W-C PO SCH (13:08)
[2018-08-14] MEDS: Fluticasone Propionate Nasal Spray 16 gm Bottle NASAL SCH (13:11)
[2018-08-14] MEDS: buPROPion HCl 100 MG TAB PO SCH (13:12)
[2018-08-14] MEDS: Polyethylene Glycol 3350 17 GM Packet PO SCH (13:12)
--- NOTE | 2018-08-16 16:41 | DIS ---
DATE OF ADMISSION: 07/29/2018 DATE OF DISCHARGE: 08/14/2018 DISCHARGE DIAGNOSES: 1. Upper gastrointestinal bleed. 2. Erosive esophagitis. 3. Acute on chronic blood loss anemia. 4. MRSA infection. 5. Coronary artery disease. 6. End-stage renal disease, on dialysis. 7. Hypertension. PROCEDURES: Surgical explantation of right hip prosthesis. CONSULTATIONS: 1. Orthopedic surgery. 2. GI. 3. Infectious Disease. 4. Nephrology. 5. General Surgery. 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 The patient has history of prior coronary artery disease with bypass grafting, ileostomy, aortic valve repair, multiple AV fistula revisions, and history of prior MRSA infections. The patient previously had right hip fracture requiring right hip arthroplasty. The patient subsequently had done relatively well with that until this admission. She initially presented with vomiting of some brown fluid. She was seen in the [facility] department, was noted to have coffee-grounds emesis and a hemoglobin of 5. She also appeared to have potential urinary tract infection and was given antibiotics and transfusion. She was also noted to have a draining fistula at the right hip, which had already a documented culture growing MRSA for which she had been on Bactrim. CT scan was performed which showed some stranding of the soft tissue, but no abscess and apparently no abnormalities of the underlying hip prosthesis. The patient was subsequently transferred to our facility. On hospital course, the patient was started on a Protonix drip, given two more units of blood and was seen in consultation by GI. She underwent endoscopy, which revealed significant erosive esophagitis, but no evidence of active bleeding and it was not clear that this was the source of the patient's bleeding. However, she appeared to have no further bleeding and she was not at that point amenable to further endoscopic evaluations. She was seen in consultation by Dr. Valdez and the patient was started on vancomycin. Orthopedic Surgery saw the patient as well and ultimately she had undergone CT scan of the right hip prosthesis which did confirm some evidence of infection. With that the plan was to explant the prosthesis, however, given her history of recurrent MRSA infections, it was felt this was not likely going to be successfully reimplanted in the future because of high risk for recurrent infections. The patient did ultimately successfully undergo explantation and did well postoperatively. The patient was also seen by Dr. Morris for retained PTFE segment in the left upper arm from the previously excised infected graft. He had some concern in the patient's left groin HemoSplit dialysis catheter might have been either infected or the source of infection for the MRSA that was left in place and the patient continued with the IV vancomycin. Once the patient was stable postoperatively, she was felt to be in need of some rehab, although the patient's dialysis necessitated a search for local facilities, however, failing to get acceptance there. The patient was ultimately accepted in the swing bed facility in [place], had a doc-to-doc phone call with Dr. Steele, who has accepted the patient in transfer. PHYSICAL EXAMINATION: VITAL SIGNS: On the day of discharge, temperature was 97.7, pulse 85, respirations 18, O2 saturation 98% on room air, BP was 147/69. GENERAL: She is awake, alert, oriented, pleasant, and cooperative. HEART: Regular with 2/4 murmur. LUNGS: Clear bilaterally. ABDOMEN: Soft, nontender. Stoma appeared healthy. EXTREMITIES: Had no significant cyanosis or clubbing. DISPOSITION: The patient is in stable condition in discharge to the [facility] [facility] under the care of Dr. Steele. DISCHARGE MEDICATIONS: She will be on; 1. Procrit 05205 units subcu weekly. 2. [place] 7.5/325 two p.o. q.4 hours p.r.n. 3. Pantoprazole 40 mg b.i.d. 4. Senokot two tabs p.o. daily. 5. Restoril 15 mg at bedtime p.r.n. 6. Vancomycin 750 mg IV with dialysis. 7. Citalopram 20 mg daily. 8. Aspirin 81 mg daily. 9. but will be held for dialysis nights of Friday, Friday, . 10. Loratadine 10 mg at bedtime. 11. B complex vitamin daily. 12. Aspirin p.r.n. 13. Wellbutrin 100 mg b.i.d. 14. Calcium acetate 1334 mg t.i.d. with meals. 15. Klonopin 0.5 mg p.r.n. 16. Flexeril p.r.n. 17. Colace p.r.n. 18. Nephro-Mimi daily. 19. MiraLAX p.r.n. 20. Pravastatin 10 mg at bedtime. 21. Flonase 1 spray per day. DIET: She will be on a regular diet. She will have occupational and physical therapy. FOLLOWUP: She is to have her ana maria removed on Friday. She can return to the hospital, should she have any problems prior to that time. After discharge, she should follow up with Dr. Rachel Hernandez, Dr. Saunders she can return to the hospital, should she have any problems prior to her followup. Job ID: [id number]
== END 2018-08-14 15:35 | DRG 463 ==
LOC: ERS 06:56 → CCU 10:21 → T4-A 07-31 13:20
PROVIDERS: ADMIT Internal Medicine; ATTEND Internal Medicine
PROC: 0DJ08ZZ Inspection of Upper Intestinal Tract, Via Natural or Artificial Opening Endoscopic (ICD-10-PCS; principal; 2018-07-29)
PROC: 5A1D70Z Performance of Urinary Filtration, Intermittent, Less than 6 Hours Per Day (ICD-10-PCS; 2018-07-29)
PROC: 0XP Anatomical Regions, Upper Extremities, Removal (ICD-10-PCS; 2018-08-01)
PROC: 0SP90JZ Removal of Synthetic Substitute from Right Hip Joint, Open Approach (ICD-10-PCS; 2018-08-05)
PROC: 30233N1 Transfusion of Nonautologous Red Blood Cells into Peripheral Vein, Percutaneous Approach (ICD-10-PCS; 2018-08-06)
DX: T84.7XXA Infection and inflammatory reaction due to other internal orthopedic prosthetic devices, implants and grafts, initial encounter (principal); N18.6 End stage renal disease; A41.02 Sepsis due to Methicillin resistant Staphylococcus aureus; D62 Acute posthemorrhagic anemia; K22.10 Ulcer of esophagus without bleeding; N39.0 Urinary tract infection, site not specified; M86.651 Other chronic osteomyelitis, right thigh; I12.0 Hypertensive chronic kidney disease with stage 5 chronic kidney disease or end stage renal disease; L02.416 Cutaneous abscess of left lower limb; L02.415 Cutaneous abscess of right lower limb; K21.9 Gastro-esophageal reflux disease without esophagitis; I25.10 Atherosclerotic heart disease of native coronary artery without angina pectoris; E78.5 Hyperlipidemia, unspecified; M81.0 Age-related osteoporosis without current pathological fracture; F32.9 Major depressive disorder, single episode, unspecified; F41.9 Anxiety disorder, unspecified; D63.1 Anemia in chronic kidney disease; K44.9 Diaphragmatic hernia without obstruction or gangrene; K22.2 Esophageal obstruction; E83.39 Other disorders of phosphorus metabolism; E83.51 Hypocalcemia; Y83.1 Surgical operation with implant of artificial internal device as the cause of abnormal reaction of the patient, or of later complication, without mention of misadventure at the time of the procedure; Z99.2 Dependence on renal dialysis; Z85.3 Personal history of malignant neoplasm of breast; Z95.1 Presence of aortocoronary bypass graft; Z90.711 Acquired absence of uterus with remaining cervical stump; Z93.2 Ileostomy status; Z90.5 Acquired absence of kidney; Z90.12 Acquired absence of left breast and nipple; Z88.8 Allergy status to other drugs, medicaments and biological substances; Z99.3 Dependence on wheelchair
CPT/HCPCS: 36415; 36416; 36430; 72170; 80048; 80053; 80202; 83605; 83630; 84484; 85014; 85018; 85025; 86706; 86850; 86900; 86901; 87040; 87070; 87077; 87186; 87205; 87340; 90935; 96365; A4216; C9113; G0257; J1644; J2001; J2250; J2270; J2405; J2543; J2597; J2704; J2997; J3010; J3370; J3490; J7050; P9016; Q0162; Q5105

== ENCOUNTER 2019-04-03 23:43 | Observation (INO) | payer MEDICARE ==
[2019-04-04 03:35] VITALS: BMI 23.2
[2019-04-04] MEDS ORDERED: Temazepam 15 MG CAP PO PRN (10:40)
[2019-04-04] MEDS ORDERED: PROVENTIL INHALER 6.7 G (200 INHALATIONS) INH PRN (10:40)
--- NOTE | 2019-04-04 10:50 | PDOC.HHP ---
Hospitalist HPI - History of Present Illness SOB History of Present Illness: Ms. Rodriguez is a 68 y/o lady with PMH of ESRD on HD on M,W,F, HTN, nephrectomy, with urostomy bag who presents with increasing shortness of breath. States that she has become increasingly short of breath in the past 2 weeks. She states that her dialysis has been shortened in the past 2 weeks each session due to low blood pressure and increasing cramping during dialysis session. She also has had a nonproductive cough with increasing shortness of breath since that time. She reportedly has had two bouts of pneumonia in the past for which she has been treated, the last one in 2018. She has history of breast CA with right mastectomy in 1989. She denies any fever, chills, weight loss, or additional symptoms. Hospitalist ROS - Review of Systems Constitutional: denies: fever, chills, sweats, weakness, malaise, other Eyes: denies: pain, vision change, conjunctivae inflammation, eyelid inflammation, redness, other ENT: denies: ear pain, ear discharge, nose pain, nose discharge, nose congestion , mouth pain, mouth swelling, throat pain, throat swelling, other Respiratory: reports: cough, shortness of breath. denies: dry, hemoptysis, SOB with excertion, pleuritic pain, sputum, wheezing, other Cardiovascular: denies: chest pain, palpitations, orthopnea, paroxysmal noc. dyspnea, edema, light headedness, other Gastrointestinal: denies: nausea, vomiting, abdominal pain, diarrhea, constipation, melena, hematochezia, other Genitourinary: denies: dysuria, frequency, incontinence, hematuria, retention, other Musculoskeletal: denies: neck pain, shoulder pain, arm pain, back pain, hand pain, leg pain, foot pain, other Skin: denies: rash, lesions, gary, bruising, other Neurological: denies: weakness, numbness, incoordination, change in speech, confusion, seizures, other Hospitalist History - Past Medical History Cardiac: reports: HTN Pulmonary: reports: no pertinent history RIB BENDER: reports: no pertinent history Gastrointestinal: reports: GERD Heme/Onc: reports: Cancer (hx of breast CA) Psych: reports: Anxiety Musculoskeletal: reports: no pertinent history Rheumatologic: reports: no pertinent history Infectious Disease: reports: no pertinent history ENT: reports: no pertinent history Renal/: reports: Chronic renal failure Endocrine: reports: no pertinent history Dermatology: reports: no pertinent history - Past Surgical History Past Surgical History: reports: Other (CABG, Mastectomy, Nephrectomy) - Family History Family History: reports: no pertinent history - Social History Smoking Status: Never smoker Alcohol: reports: None Drugs: reports: none Living Situation: Alone Activity level: wheelchair bound - Exam General - other findings: Frail, elderly appearing, chronically ill appearing, alert and oriented x3 Eye: PERRL, anicteric sclera ENT: normocephalic atraumatic, no oropharyngeal lesions, moist mucosa Neck: supple, symmetric, no JVD, no thyromegaly, no lymphadenopathy, no carotid bruit Heart: RRR, no murmur, no gallops, no rubs, normal peripheral pulses Respiratory: CTAB, no wheezes, no rales, no ronchi, normal chest expansion, no tachypnea, normal percussion Gastrointestinal: soft, non-tender, non-distended, normal bowel sounds, no palpable masses, no hepatomegaly, no splenomegaly, no bruit Extremities: no cyanosis, no clubbing, no edema Skin: normal turgor, no lesions, no rashes Neurological: cranial nerve grossly intact, normal sensation to touch, no weakness, no focal deficits, no new deficit Musculoskeletal: normal tone, normal strength, no muscle wasting Psychiatric: normal affect, normal behavior, A&O x 3 Hospitalist Results - Labs Result Diagrams: 04/04/19 13:02 04/04/19 13:02 Lab results: BNP 747 Cr 4.27/BUN 35 Na 142 K 4 Chloride 100 Calcium 9.6 Hemoglobin 10.1 Hematocrit 31.9 Platelet 295 WBC 9.3 CXR--> acute left infiltrative process - EKG Interpretation EKG: Sinus rhythm, 1st degree A/V block, no acute st-t wave change noted. - Radiology Interpretation Chest x-ray Status: report reviewed by ri Hospitalist H&P A/P - Problem (1) Acute respiratory failure with hypoxia Code(s): J96.01 - ACUTE RESPIRATORY FAILURE WITH HYPOXIA Status: Acute (2) Left lower lobe pulmonary infiltrate Code(s): R91.8 - OTHER NONSPECIFIC ABNORMAL FINDING OF LUNG FIELD Status: Acute (3) ESRD (end stage renal disease) on dialysis Code(s): N18.6 - END STAGE RENAL DISEASE; Z99.2 - DEPENDENCE ON RENAL DIALYSIS Status: Chronic (4) Hypertension Code(s): I10 - ESSENTIAL (PRIMARY) HYPERTENSION Status: Chronic Qualifiers: (5) Anxiety and depression Code(s): F41.9 - ANXIETY DISORDER, UNSPECIFIED; F32.9 - MAJOR DEPRESSIVE DISORDER, SINGLE EPISODE, UNSPECIFIED Status: Chronic (6) History of nephrectomy Code(s): Z90.5 - ACQUIRED ABSENCE OF KIDNEY Status: Acute (7) History of mastectomy Code(s): Z90.10 - ACQUIRED ABSENCE OF UNSPECIFIED BREAST AND NIPPLE Status: Acute Qualifiers: Laterality: right Qualified Code(s): Z90.11 - Acquired absence of right breast and nipple - Plan Plan: Further workup of acute respiratory failure, she is now requiring nasal cannula , she is not on oxygen at home CXR-0->shows acute left infiltrate, unclear if this is a pneumnia or DDx: pleural thickening, effusion, atelectasis will obtain a CT chest w and w/o contrast for further evaluation of this area Incenstive spirometry Does not appear to be severely fluid overloaded, consult placed to Nephrology for regular dialysis as scheduled Empiric abx for pneumonia with Vancomycin and Zosyn, will cover HAP organisms and descalate depending on culture/ additional workup of CT Continue medication from home for chronic conditions Code status: Full Code ACP: Surrogate decision maker is sister. Disposition: Workup of respiratory failure. Coordinate with nephrology for dialysis. Pending CT of chest.
--- NOTE | 2019-04-04 11:31 | RAD ---
PA AND LATERAL CHEST: HISTORY: Shortness of breath. Fluid overload. COMPARISON: Exam from 06/21/2017. FINDINGS: Postop sternotomy changes are seen. Heart is borderline in size. There are chronic lung changes seen. Increased parenchymal density in the left base is felt to represent a left lower lobe infiltrate. Th ere is probably associated effusion or pleural thickening. The parenchymal changes appear slightly mo re prominent than they did on the 2018 study. IMPRESSION: Chronic lung changes with what is felt to be a more acute left lower lobe infiltrative process. Follo w-up chest films would be required for assessment. POS: [facility]
[2019-04-04] MEDS ORDERED: Vancomycin HCl 0.5 GM in Sodium Chloride 0.9% 250 ML 250 ML IVPB SCH (11:45)
[2019-04-04] MEDS: Aspirin 81 mg Enteric Coated Tablet PO SCH (12:06)
[2019-04-04] MEDS: Escitalopram Oxalate 20 mg Tablet PO SCH (12:06)
[2019-04-04] MEDS: Midodrine HCl 5 MG TAB PO SCH (12:06)
[2019-04-04] MEDS: Fluticasone Propionate Nasal Spray 16 gm Bottle NASAL SCH (12:06)
--- NOTE | 2019-04-04 12:29 | CON ---
DATE OF CONSULTATION: 04/04/2019 SERVICE: Nephrology. REASON FOR CONSULTATION: End-stage renal disease management. REQUESTING PHYSICIAN: Ben Dewey MD. HISTORY OF PRESENT ILLNESS: A 68-year-old female with multiple medical conditions including breast cancer status post right mastectomy, complicated with right upper extremity lymphedema; end-stage renal disease, on hemodialysis; amongst others, who was admitted on transfer from [facility] for further evaluation and treatment of worsening shortness of breath. The patient reported that in the last 2 weeks she has been having progressive shortness of breath. This was felt to be due to shortened hemodialysis due to excessive cramping and hypotension during hemodialysis in the outpatient unit. Symptoms progressively got worse in the last few days, hence presentation to the [facility] ER in [place], from where the patient was evaluated and subsequently transferred over here. There is no history of fever or worsening cough. The patient thinks she may be requiring additional dialysis due to shortened hemodialysis in the last few weeks. She also denied sputum production. She also denied chest pain, nausea, vomiting, or abdominal pain. PAST MEDICAL HISTORY: 1. End-stage renal disease, on hemodialysis. 2. Coronary artery disease. 3. Multiple episodes of MRSA bacteremia. 4. Breast cancer. 5. Dyslipidemia. 6. Gastroesophageal reflux disease. 7. Hyperlipidemia. 8. Hypertension. 9. Heart failure. 10. 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 11. 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 PAST SURGICAL HISTORY: 1. Right mastectomy. 2. Coronary artery bypass graft. 3. Right nephrectomy. 4. Hysterectomy. 5. AV fistula creation. 6. Ileal conduit. 7. Ileostomy. 8. Aortic valve repair. 9. Right knee surgery. 10. Left upper limb AV shunt. 11. Left thigh tunneled dialysis catheter placement. FAMILY HISTORY: Significant for Parkinson disease. SOCIAL HISTORY: The patient lives alone. She is . She is a nonsmoker. ALLERGIES: 1. LIPITOR. 2. CEFUROXIME AXETIL. 3. MEPERIDINE. 4. NITROFURANTOIN. HOME MEDICATIONS: 1. Albuterol nebulization as needed. 2. Aspirin 81 mg daily. 3. Calcium acetate, PhosLo, 667 mg capsules t.i.d. 4. Carvedilol 12.5 mg p.o. b.i.d. 5. Lexapro 10 mg daily. 6. Protonix 40 mg b.i.d. 7. Restoril 7.5 mg p.o. daily at bedtime p.r.n. for insomnia. 8. Pravachol 10 mg p.o. daily at bedtime. 9. Evista 60 mg p.o. daily. 10. Midodrine 5 mg p.o. daily. 11. Meclizine 25 mg p.o. daily p.r.n. 12. Naproxen 500 mg p.o. daily as needed for pain. REVIEW OF SYSTEMS: Twelve-point review of systems performed was negative other than pertinent positives and negatives included in the history of present illness. PHYSICAL EXAMINATION: VITAL SIGNS: Temperature 97.2, pulse 91, respiratory rate 24, SpO2 of 99 on 1.5 L nasal cannula, and blood pressure is 102/59. GENERAL: Chronically ill-looking female, in mild respiratory distress. Afebrile. Anicteric. Acyanotic. HEENT: Normocephalic and atraumatic. Oral mucosa is mildly dry. NECK: Supple with no JVD. CARDIOVASCULAR: Regular rhythm and rate with normal heart sounds 1 and 2. RESPIRATORY: Fair air entry bilaterally with some transmitted breath sounds. Few crackles were noted. Work of breathing is increased. There are, however, no obvious rhonchi. GI: Full, soft, and nontender with normal bowel sounds. Ileal conduit noted. CHEST: Right mastectomy noted. Left anterior chest wall AV graft noted. EXTREMITIES: Right upper extremity lymphedema with edema noted. Mild bilateral leg edema noted as well. No erythema appreciated. Left lateral thigh tunneled dialysis catheter noted. BOLOGNA MAKER: Conscious and alert and oriented x3 with appropriate mental status. Cranial nerves 2 through 12 are grossly intact. DIAGNOSTIC DATA: Review of medical record from [facility] riley Hernandez in [place] showed the following. CMP on 04/03 showed glucose 98, BUN 35, creatinine 4.27, sodium 142, potassium 4.0, chloride 100, CO2 of 29, calcium 9.6, bilirubin 0.6, alkaline phosphatase 219, AST 18, ALT 17, total protein 7.3, and albumin 3.9. CBC on 04/03 showed WBC count of 9.3, hemoglobin of 10.1, and platelet of 295. Coagulation panel showed PT 14.5, INR 1.1, and PTT 33.5. Cardiac markers on showed BNP 747 and troponin 0.04. Left lower extremity Doppler performed at [facility] showed no DVT. Chest x-ray one-view performed on 04/03 in [place] showed cardiomegaly and pulmonary congestion with bilateral airspace opacities. No significant pleural effusion or pneumothorax was noted. ASSESSMENT: 1. Acute respiratory failure with hypoxia. Etiology is unclear. The patient, however, is not overtly fluid overloaded. Some transmitted breath sounds and crackles are suggestive of infiltrative process instead. There is no jugular venous distention to suggest fluid overload. The patient has had prior history of pneumonias and methicillin-resistant Staphylococcus aureus bacteremia, hence infective process may be responsible. 2. End-stage renal disease, on hemodialysis on Friday, Friday, Friday with last dialysis being 2 days ago. 3. History of congestive heart failure. Acute exacerbation is a concern. 4. Breast cancer status post mastectomy on the right. PLAN: Further evaluation of this patient is needed. The patient looked clinically dry if anything given dry oral mucosa. We will recommend gentle IV fluid therapy if the patient is n.p.o. We will also recommend imaging of the CT scan of the chest with and without contrast to further delineate the cause of shortness of breath. We will also get repeat renal function panel to assess electrolyte and metabolic profile. At this moment, there is no immediate indication for hemodialysis. However, we will re-evaluate with repeat renal function panel should potassium be elevated that will warrant emergent hemodialysis. We will plan on dialyzing the patient tomorrow in line with her outpatient dialysis schedule. Further treatment to follow depending on hospital course. Care plan was discussed with the primary attending. Many thanks for involving us in the care of this patient. We will continue to follow along with you. Job ID: [id number] MTDD
[2019-04-04] MEDS ORDERED: HOLD VANCOMYCIN FOR LEVEL >20 FS SCH (12:30)
[2019-04-04] MEDS ORDERED: Vancomycin Sliding Scale 1 EACH FS ONE (12:30)
[2019-04-04] MEDS ORDERED: Vancomycin HCl 1.25 GM in Sodium Chloride 0.9% 250 ML 250 ML IVPB SCH (12:30)
[2019-04-04] MEDS ORDERED: Vancomycin HCl 1 GM in Premix Bag 1 BAG IVPB SCH (12:30)
[2019-04-04] MEDS ORDERED: Vancomycin HCl 250 MG in Sodium Chloride 0.9% 100 ML IVPB SCH (12:30)
[2019-04-04] MEDS ORDERED: Vancomycin HCl 500 MG in Sodium Chloride 0.9% 100 ML IVPB SCH (12:30)
[2019-04-04] MEDS ORDERED: Vancomycin HCl 750 MG in Sodium Chloride 0.9% 250 ML 250 ML IVPB SCH (12:30)
[2019-04-04] MEDS ORDERED: Loratadine 10 MG TAB PO SCH (12:45)
[2019-04-04 13:18] LABS: #Eosinphils 0.1 thou/uL (0.0-0.7); #Lymphocytes 0.9 thou/uL (1.20-3.40); #Monocytes 0.6 thou/uL (0.11-0.59); %Basophils 0.3 % (0.0-1.0); %Eosinophils 0.8 % (0.0-10.0); %Lymphocytes 8.3 % (21.0-51.0); %Monocytes 5.6 % (0.0-10.0); Mean Corpuscular HGB CONC 31.9 g/dL (32.0-36.0); Mean Corpuscular Hemoglobin 31.7 pg (27.0-31.0); Mean Corpuscular Volume 99.4 fL (78.0-98.0); Platelet Count 303 thou/uL (130-400); RBC Distribution Width 13.9 % (11.5-14.5); Red Blood Cell (RBC) Count 3.46 mill/uL (4.20-5.40); White Blood Cell (WBC) Count 10.5 thou/uL (4.8-10.8)
[2019-04-04 13:31] LABS: ALT (SGPT) 14 U/L (8-55); AST (SGOT) 17 U/L (5-34); Alkaline Phosphatase 216 U/L (40-110); Anion Gap 19 mmol/L (10-20); BUN (Urea Nitrogen) 47 mg/dL (9.8-20.1); Bilirubin, Total 0.6 mg/dL (0.2-1.2); Calc. Creatinine Clearance 10 mL/min (70-130); Calcium 9.4 mg/dL (7.8-10.44); Carbon Dioxide 28 mmol/L (23-31); Chloride 98 mmol/L (98-107); Estimated GFR-MDRD 8; Globulin 3.6 g/dL (2.4-3.5); Glucose 117 mg/dL (80-115); Potassium 4.2 mmol/L (3.5-5.1); Protein, Total 7.6 g/dL (6.0-8.3); Sodium 141 mmol/L (136-145)
[2019-04-04] MEDS ORDERED: Iopamidol-370 76% 500 ML 1 ML ONE (13:34)
[2019-04-04 13:38] LABS: Bilirubin Moderate (Negative); Blood, Urine Negative (Negative); Glucose, Urine (Dipstick) Negative (Negative); Leukocyte Small (Negative); Nitrite Negative (Negative); Protein, Urine (Dipstick) > or equal to 300 mg/dL (Neg-Trace)
[2019-04-04 13:39] LABS: Clarity Turbid (Clear)
[2019-04-04 13:45] LABS: Bacteria/HPF 4+ HPF (None Seen); RBC/HPF 0-3 HPF (0-3); WBC/HPF Greater Than 50 HPF (0-3)
[2019-04-04 13:46] LABS: Squamous Epithelial None Seen HPF (0-3)
[2019-04-04 13:49] LABS: Legionella Urinary Ag POSITIVE (Negative)
[2019-04-04 13:50] LABS: Strep pneumo Urine Ag POSITIVE (NEGATIVE)
[2019-04-04] MEDS ORDERED: Piperacillin/Tazobactam 4.5 GM in Sodium Chloride 0.9% 100 ML IVPB SCH (14:00)
[2019-04-04] MEDS ORDERED: Piperacillin/Tazobactam 2.25 GM in Sodium Chloride 0.9% 100 ML IVPB SCH (14:00)
--- NOTE | 2019-04-04 16:10 | CT ---
CT OF CHEST PERFORMED WITH INTRAVENOUS CONTRAST ENHANCEMENT: History: Evaluation for possible acute infiltrate in left lung base. Comparison: Chest radiograph done today, CT examination of 12-19-2015. FINDINGS: There are parenchymal changes in the right upper lobe which has the appearance of scar. These were se en on the previous chest radiograph of 06-21-2017. There is what appears to be a loculated fluid densi ty along the right side of the mediastinum in this region. The patient has a left brachiocephalic ashwini nt in place and what appears to be a graft related to dialysis access that overlies the left chest. H igh attenuation oblong soft tissue mass near this region measuring 4.7 cm, probably related to hemato ma related to the graft access. There is collateralization of flow over the left chest and some feeds back into the azygos vein into the superior vena cava. The left lower lobe parenchymal changes are probably on the basis of atelectasis rather than an infil trate. There is small left pleural effusion present. Slight ground glass opacity in the lung griffiths s uggest some element of fluid overload. There is also some anasarca type change. The visualized liver parenchyma shows no focal findings. IMPRESSION: 1. Graft which appears to represent a dialysis graft overlying the left chest appears to be an area o f hematoma, probably related to graft access. 2. Right upper lobe parenchymal changes which appear chronic in nature. 3. Left lower lobe parenchymal changes have an appearance more suggestive of atelectasis than infiltr ate. POS: [facility]
[2019-04-04] MEDS: Piperacillin/Tazobactam 2.25 GM in Sodium Chloride 0.9% 100 ML IVPB SCH (17:33)
[2019-04-04] MEDS ORDERED: Ondansetron PF 4 MG/2 ML Vial SLOW IVP PRN (17:58)
[2019-04-04] MEDS ORDERED: Ondansetron ODT 4 MG TAB PO PRN (20:57)
[2019-04-04] MEDS ORDERED: HYDROcodone/Acetaminophen 10/325 mg Tablet PO PRN (20:57)
[2019-04-04] MEDS ORDERED: Simvastatin 5 MG TAB PO SCH (21:00)
[2019-04-05] MEDS: Piperacillin/Tazobactam 2.25 GM in Sodium Chloride 0.9% 100 ML IVPB SCH ×2 (01:36→11:29)
[2019-04-05 07:44] VITALS: TEMP 97.5
[2019-04-05] MEDS: Midodrine HCl 5 MG TAB PO SCH (07:57)
[2019-04-05] MEDS: Calcium Acetate 667 MG CAP PO SCH ×2 (08:23→11:25)
--- NOTE | 2019-04-05 08:58 | PRG ---
DATE OF SERVICE: SUBJECTIVE: Ms. Rodriguez is a 68-year-old white female with ESRD-maintenance hemodialysis, admitted for shortness of breath. A CT scan of the chest was done, which showed dialysis graft over the left chest and had a finding of right upper lobe parenchymal changes which appear chronic in nature. In addition, there was a left lower lobe infiltrate suggestive of atelectasis. She is undergoing hemodialysis at the present time. No other complaints. No chest pain or shortness of breath. OBJECTIVE: VITAL SIGNS: Blood pressure is 90/70, heart rate 70. GENERAL: Awake, alert, comfortable, not in overt distress. SKIN: Adequate turgor. HEENT: Pinkish conjunctivae. Anicteric sclerae. NECK: No neck mass. No carotid bruits. No JVD. CHEST: No deformities. LUNGS: Decreased breath sounds. HEART: Normal sinus rhythm. No murmurs, gallops, or rubs. ABDOMEN: Globular, soft, nontender. No masses. EXTREMITIES: No edema. MEDICATIONS: Medications of April 05, 2019, was reviewed. LABORATORY DATA: Laboratories of April 04, 2019; white count 10.5, hemoglobin 11. April 04, 2019; sodium was 141, potassium 4.2, chloride 98, carbon dioxide 28, BUN 47, creatinine 5.1. C-reactive protein 0.69. ASSESSMENT/PLAN: 1. End-stage renal disease, stable. We will continue current Friday, Friday, and Friday hemodialysis. Again, fluid removal only as tolerated. 2. Chronic hypotension. Continue midodrine. Adjust as needed. 3. Anemia-no indication for any Epogen treatment. We will recheck another CBC basic metabolic profile in a.m. 4. Shortness of breath-CT scan of the chest did not show overt congestive heart failure per se. Shortness of breath may be from other etiology. There is no associated chest pain with that. 5. Overall agree with current management. Job ID: [id number]
[2019-04-05] MEDS ORDERED: Loratadine 10 MG TAB PO SCH (09:00)
[2019-04-05] MEDS ORDERED: Cinacalcet HCl 30 MG TAB PO SCH (09:00)
[2019-04-05] MEDS ORDERED: Folic Acid/Vit B Comp W-C PO SCH (09:00)
[2019-04-05] MEDS ORDERED: Heparin 10,000 UNITS/ 10 ML VIAL ONE (09:53)
--- NOTE | 2019-04-05 10:09 | PDOC.HOSPP ---
- Subjective Encounter Date: 04/05/19 Encounter Time: 12:10 Subjective: Patient feeling much better after they were able to get some fluid off during dialysis. - Objective Vital Signs & Weight: Vital Signs (12 hours) Temp Pulse Resp BP Pulse Ox 04/05/19 07:05 97.5 F L 92 16 91/46 L 95 04/05/19 05:05 98.0 F 90 20 94/50 L 94 L 04/05/19 01:35 97.9 F 86 20 94/51 L 96 Weight Weight 140 lb 11.2 oz I&O: 04/04/19 04/05/19 04/06/19 06:59 06:59 06:59 Intake Total 240 1950 Output Total 75 Balance 240 1875 Result Diagrams: 04/04/19 13:02 04/04/19 13:02 Hospitalist ROS - Review of Systems Constitutional: denies: fever, chills Respiratory: denies: cough, shortness of breath Cardiovascular: denies: chest pain, palpitations Gastrointestinal: denies: nausea, vomiting, abdominal pain - Medication Medications: Active Medications Generic Name Dose Route Start Last Admin Trade Name Freq PRN Reason Stop Dose Admin Aspirin 81 mg 04/05/19 09:00 04/04/19 12:06 Ecotrin PO 81 mg DAILY FERNANDO Administration Calcium Acetate 2,001 mg 04/05/19 08:00 04/05/19 08:23 Phoslo PO Not Given TID- FERNANDO Escitalopram Oxalate 20 mg 04/05/19 09:00 04/04/19 12:06 Lexapro PO 20 mg DAILY FERNANDO Administration Fluticasone Propionate 0 gm 04/05/19 09:00 04/04/19 12:06 Flonase Nasal [place] NASAL 1 spr DAILY FERNANDO Administration Vancomycin HCl 500 mg/ Sodium 100 mls @ 100 mls/hr 04/04/19 12:30 04/05/19 09 :59 Chloride IVPB 100 mls WILLCALL FERNANDO Administration Piperacillin Sod/Tazobactam 100 mls @ 200 mls/hr 04/04/19 18:00 04/05/19 01: 36 Sod 2.25 gm/ Sodium Chloride IVPB 100 mls 0200,1000,1800 FERNANDO Administration Midodrine 5 mg 04/05/19 09:00 04/05/19 07:57 Proamatine PO 5 mg DAILY FERNANDO Administration Ondansetron HCl 4 mg 04/04/19 20:57 04/04/19 21:10 Zofran Odt PO 4 mg Q12HR PRN Administration Nausea Pantoprazole Sodium 40 mg 04/04/19 21:00 04/04/19 20:15 Protonix PO 40 mg BID FERNANDO Administration Simvastatin 5 mg 04/04/19 21:00 04/04/19 20:15 Zocor PO 5 mg HS FERNANDO Administration Temazepam 15 mg 04/04/19 10:40 04/04/19 21:10 Restoril PO 15 mg HS PRN Administration Insomnia - Exam General Appearance: NAD, awake alert ENT: moist mucosa Heart: RRR, no murmur, no gallops, no rubs Respiratory: CTAB, no wheezes, no rales, no ronchi Gastrointestinal: soft, non-tender, non-distended, normal bowel sounds Extremities: no edema Psychiatric: normal affect, normal behavior, A&O x 3 Hosp A/P (1) Acute respiratory failure with hypoxia Code(s): J96.01 - ACUTE RESPIRATORY FAILURE WITH HYPOXIA Status: Resolved (2) Shortness of breath Code(s): R06.02 - SHORTNESS OF BREATH Status: Acute (3) Atelectasis of left lung Code(s): J98.11 - ATELECTASIS Status: Acute (4) ESRD (end stage renal disease) on dialysis Code(s): N18.6 - END STAGE RENAL DISEASE; Z99.2 - DEPENDENCE ON RENAL DIALYSIS Status: Acute (5) Anemia in chronic kidney disease Code(s): N18.9 - CHRONIC KIDNEY DISEASE, UNSPECIFIED; D63.1 - ANEMIA IN CHRONIC KIDNEY DISEASE Status: Chronic Qualifiers: (6) CAD (coronary artery disease) Code(s): I25.10 - ATHSCL HEART DISEASE OF [place] CORONARY ARTERY W/O ANG PCTRS Status: Chronic (7) Hypertension Code(s): I10 - ESSENTIAL (PRIMARY) HYPERTENSION Status: Chronic Qualifiers: (8) Secondary hyperparathyroidism of renal origin Code(s): N25.81 - SECONDARY HYPERPARATHYROIDISM OF RENAL ORIGIN Status: Chronic (9) History of mastectomy Code(s): Z90.10 - ACQUIRED ABSENCE OF UNSPECIFIED BREAST AND NIPPLE Status: Chronic Qualifiers: Laterality: right Qualified Code(s): Z90.11 - Acquired absence of right breast and nipple (10) History of nephrectomy Code(s): Z90.5 - ACQUIRED ABSENCE OF KIDNEY Status: Chronic - Plan Patient weaned off O2. Sating well on room air. CT negative for infiltrate, just atelectasis, and normal WBC. No evidence for pulmonary infection at this time. Will d/c zosyn and vancomycin. Home today.
[2019-04-05 11:19] VITALS: BP 100/50
[2019-04-05] MEDS: Aspirin 81 mg Enteric Coated Tablet PO SCH (11:24)
[2019-04-05] MEDS: Escitalopram Oxalate 20 mg Tablet PO SCH (11:24)
[2019-04-05] MEDS: Fluticasone Propionate Nasal Spray 16 gm Bottle NASAL SCH (11:25)
--- NOTE | 2019-04-05 18:31 | DIS ---
DATE OF ADMISSION: 04/04/2019 DATE OF DISCHARGE: 04/05/2019 PRIMARY CARE PHYSICIAN: Rachel Hernandez MD. REASON FOR ADMISSION: Possible pneumonia. DIAGNOSES AT DISCHARGE: 1. Acute respiratory failure with hypoxia, resolved. 2. Atelectasis of the left lung. No pneumonia. 3. End-stage renal disease, on dialysis. 4. Anemia of chronic kidney disease. 5. Coronary artery disease. 6. Volume overload, resolved. 7. Hypertension. 8. Hyperparathyroidism. 9. History of mastectomy. 10. History of nephrectomy. PROCEDURES: CT of the chest with IV contrast showing AV dialysis graft overlying the left chest with an area of hematoma, also right upper lobe parenchymal changes which are chronic and left lower lobe parenchymal changes, they are consistent with atelectasis, not infiltrate. CONSULTATIONS: Nephrology, Dr. Rucker. SUMMARY OF HOSPITAL COURSE: This is a 68-year-old female with a history of end-stage renal disease. She has been having trouble getting her full dialysis for the last couple of weeks due to some low blood pressure and cramping during her dialysis sessions. With every time, she has increased shortness of breath, also a nonproductive cough, so she came into the emergency room for evaluation. She had initial chest x-ray that showed a possible left lower lobe pneumonia, though her white blood cell count was normal and she had no fevers. She was started on antibiotics and a CT scan was ordered. CT scan showed no infiltrate, it was just atelectasis, so antibiotics were stopped. The patient did have dialysis. They were able to diurese her and get off 2 L of fluid and she felt much better after that. The plan is to diurese her again later this week and get another 2 L of fluid off. She was off all nasal cannula oxygen, doing well and is being discharged home. DISCHARGE MANAGEMENT: Discharged home. ACTIVITY: As tolerated. DIET: Fluid restricted renal diet. FOLLOWUP: Follow up with Dr. Hernandez in [address] Rucker for continued dialysis. DISCHARGE MEDICATIONS: Continue all home medications. 1. Albuterol inhaler as needed. 2. Aspirin 81 mg daily. 3. PhosLo 3 capsules three times a day. 4. Sensipar 30 mg as directed. 5. Lexapro 20 mg daily. 6. Flonase daily. 7. Nae-Mimi tablet one tablet daily. 8. Hydrocodone one tab twice a day as needed for pain. 9. Midodrine 5 mg daily. 10. Zofran as needed. 11. Protonix 40 mg twice a day. 12. Pravastatin 10 mg at night. 13. Temazepam 7.5 mg at night. 14. Meclizine as needed. 15. Naproxen as needed. 16. Evista one tablet daily. 17. Florastor one capsule daily. Job ID: [id number]
== END 2019-04-05 16:50 | disposition home or self-care (01) ==
LOC: ERS 23:43 → 2SW 04-04 02:01
PROVIDERS: ADMIT Internal Medicine; ATTEND Emergency Medicine
DX: J96.01 Acute respiratory failure with hypoxia (principal); J98.11 Atelectasis; I13.2 Hypertensive heart and chronic kidney disease with heart failure and with stage 5 chronic kidney disease, or end stage renal disease; N18.6 End stage renal disease; I50.9 Heart failure, unspecified; D63.1 Anemia in chronic kidney disease; N25.81 Secondary hyperparathyroidism of renal origin; I25.10 Atherosclerotic heart disease of native coronary artery without angina pectoris; E87.70 Fluid overload, unspecified; K21.9 Gastro-esophageal reflux disease without esophagitis; F41.9 Anxiety disorder, unspecified; F32.9 Major depressive disorder, single episode, unspecified; I44.0 Atrioventricular block, first degree; I95.89 Other hypotension; Z85.3 Personal history of malignant neoplasm of breast; Z79.82 Long term (current) use of aspirin; Z79.810 Long term (current) use of selective estrogen receptor modulators (SERMs); Z79.899 Other long term (current) drug therapy; Z88.1 Allergy status to other antibiotic agents; Z88.5 Allergy status to narcotic agent; Z88.8 Allergy status to other drugs, medicaments and biological substances; Z90.5 Acquired absence of kidney; Z93.6 Other artificial openings of urinary tract status; Z95.1 Presence of aortocoronary bypass graft; Z99.2 Dependence on renal dialysis; Z99.3 Dependence on wheelchair
CPT/HCPCS: 71046; 71260; 80053; 80202; 81001; 85025; 87040; 87449; 87899; 93005; 96365; 96366; 96367; 96375; 96376; 99285; G0378 ×3; 36415; 93010; J1644; J2543; J3370; J3490; J7050; Q0162; Q9967

== ENCOUNTER 2019-05-03 18:06 | Inpatient (IN) | payer MEDICARE ==
[~2019-05-03 18:06] MED LIST: Iopamidol-370 76% 500 ML 1 ML ONE
[2019-05-03 18:59] LABS: #Eosinphils 0.1 thou/uL (0.0-0.7); #Monocytes 0.4 thou/uL (0.11-0.59); %Basophils 0.1 % (0.0-1.0); %Eosinophils 0.8 % (0.0-10.0); %Lymphocytes 10.9 % (21.0-51.0); %Monocytes 4.5 % (0.0-10.0); %Neutrophils 83.7 % (42.0-75.0); Hemoglobin 12.4 g/dL (12.0-16.0); Mean Corpuscular HGB CONC 31.8 g/dL (32.0-36.0); Mean Corpuscular Volume 97.4 fL (78.0-98.0); Mean Platelet Volume 9.7 fL (7.4-10.4); Platelet Count 210 thou/uL (130-400); RBC Distribution Width 15.9 % (11.5-14.5); Red Blood Cell (RBC) Count 4.01 mill/uL (4.20-5.40); White Blood Cell (WBC) Count 9.5 thou/uL (4.8-10.8)
[2019-05-03 19:11] LABS: ALT (SGPT) 16 U/L (8-55); AST (SGOT) 24 U/L (5-34); Albumin 3.8 g/dL (3.4-4.8); Alkaline Phosphatase 215 U/L (40-110); Anion Gap 22 mmol/L (10-20); BUN (Urea Nitrogen) 56 mg/dL (9.8-20.1); Calc. Creatinine Clearance 0 mL/min (70-130); Carbon Dioxide 26 mmol/L (23-31); Chloride 94 mmol/L (98-107); Estimated GFR-MDRD 6; Globulin 3.3 g/dL (2.4-3.5); Glucose 87 mg/dL (80-115); Potassium 4.9 mmol/L (3.5-5.1); Protein, Total 7.1 g/dL (6.0-8.3); Sodium 137 mmol/L (136-145)
--- NOTE | 2019-05-03 19:19 | RAD ---
CHEST ONE VIEW: History: Dyspnea. Comparison: 04-14-2019 FINDINGS: There are axillary surgical clips. There appears to be atelectasis in the left lung base. Small left effusion. Mild background pulmonary edema. Scarring in the right upper lobe. IMPRESSION: Mild progressive volume overload from the comparison exam. POS: HOME
[2019-05-03 19:34] LABS: CKMB 1.1 ng/mL (0-6.6)
[2019-05-03 19:34] LABS: Blood, Urine Small (Negative); Glucose, Urine (Dipstick) Negative (Negative); Leukocyte Large (Negative); Nitrite Negative (Negative); Protein, Urine (Dipstick) > or equal to 300 mg/dL (Neg-Trace); Urobilinogen 0.2 mg/dL (Less than 2)
[2019-05-03 19:47] LABS: Clarity Turbid (Clear)
[2019-05-03 19:48] LABS: Bilirubin Negative (Negative)
[2019-05-03 19:51] LABS: Bacteria/HPF 4+ HPF (None Seen); RBC/HPF 0-3 HPF (0-3); Squamous Epithelial 0-3 HPF (0-3)
[2019-05-03] MEDS ORDERED: Ondansetron PF 4 MG/2 ML Vial ONE ×2 (21:39→22:33)
[2019-05-03] MEDS ORDERED: Famotidine/PF 20 mg/2ml Vial ONE (22:25)
--- NOTE | 2019-05-03 23:28 | CT ---
CT angiogram chest: 05/03/2019 COMPARISON: 12/19/2015 HISTORY: Dyspnea, chest tightness TECHNIQUE: Axial CT imaging at 2.5 mm intervals through the chest with IV contrast using CT angiogram protocol. Coronal and sagittal 3-D reformatted imaging obtained. FINDINGS: There is stent material within the brachiocephalic vein. Numerous left-sided chest wall col lateral veins are present. There are postsurgical clips in the right axilla. The left axilla is not optimally assessed secondary to collateral vessels. There is a mass within the anterior aspect of the upper left chest wall measuring 4.7 cm in transverse dimension, unchanged when compared to the 04/04/2019 examination. This mass demonstrates Hounsfield units of approximately 15-20, suggesting comp freda fluid. There are multiple mildly enlarged lymph nodes in the left axilla measuring up to 1.6 cm, unchanged when compared to the most recent prior examination. Evaluation of the upper abdomen is suboptimal secondary to timing of the contrast bolus. Dialysis cat heter tubing is seen in the region of the inferior vena cava. Lobulated soft tissue density is seen in the region of the adrenal gland on the left which could be related to incompletely imaged lymphade nopathy and/or partially visualized left adrenal nodule. There is questionable mild lymphadenopathy in the region of the gastrohepatic ligament. Findings would be better assessed with follow-up CT exam ination of the abdomen with IV contrast. Stable mildly enlarged lymph node in the AP window measures 1.2 cm. The distal esophagus demonstrates nonspecific wall thickening. Nonspecific enlarged subcarinal lymph node noted measuring approximately 1.6 cm. Midline sternotomy wires are present. Coronary arterial calcification is noted. Small volume pleural fluid noted within the left lung base, stable. Opacification of the pulmonary arterial vasculature is suboptimally distally secondary to timing. The re is no central pulmonary arterial embolism evident on this examination. There are coarse increased linear densities noted within the anterior aspect of the right upper lobe and in the right suprahilar region suggesting scar and/or volume loss versus prior radiation change, stable. There is an irregular nodular density within the medial aspect of the right lower lobe measuring 1.3 cm, best seen on axial image 77. There is a nonspecific rounded pleural-based mass density within the inferior posterior left lower lo be measuring at least 5.5 cm in transverse dimension, unchanged when compared to the 04/04/2019 examination. Review of the osseous structures demonstrates nonspecific increased density, likely on the basis of r enal osteodystrophy. There is an old fracture of the right clavicle with chronic appearing displacement and findings suggesting nonunion. IMPRESSION: No evidence for acute pulmonary arterial embolism. Nonspecific abdominal and chest lymphadenopathy. Findings may be related to malignancy. Clinical shaun elation is essential. Dedicated CT examination of the abdomen and pelvis advised as well. Rounded masslike opacity in the left lower lobe abutting the pleura. This could represent infectious pneumonitis, rounded atelectasis, or bronchogenic carcinoma. Peripheral increased linear density in the right lung apex. Question a history of prior radiation the rapy. Irregular 1.3 cm nodule within the medial right lower lobe which could reflect malignancy as well. Sh ort-term follow-up imaging via PET CT advised. Nonspecific distal esophageal wall thickening which could be related to inflammatory change or malign herbie. CODE T
[2019-05-04] MEDS ORDERED: Vancomycin 1 GM/200 ML BAG ONE (00:27)
[2019-05-04] MEDS ORDERED: Piperacillin/Tazobactam 4.5 GM VIAL ONE (00:27)
[2019-05-04] MEDS ORDERED: Ondansetron PF 4 MG/2 ML Vial ONE (01:54)
[2019-05-04 02:44] LABS: Troponin I 0.063 ng/mL (< 0.028)
[2019-05-04] MEDS ORDERED: Temazepam 15 MG CAP PO SCH ×3 (03:00→21:30)
[2019-05-04] MEDS ORDERED: Acetaminophen 325 MG TAB PO PRN (04:52)
[2019-05-04 05:32] LABS: #Eosinphils 0.1 thou/uL (0.0-0.7); #Lymphocytes 0.9 thou/uL (1.20-3.40); #Monocytes 0.5 thou/uL (0.11-0.59); #Neutrophils 5.8 thou/uL (1.40-6.50); %Basophils 0.2 % (0.0-1.0); %Eosinophils 0.8 % (0.0-10.0); %Lymphocytes 12.1 % (21.0-51.0); %Monocytes 7.1 % (0.0-10.0); %Neutrophils 79.7 % (42.0-75.0); Hemoglobin 10.3 g/dL (12.0-16.0); Mean Corpuscular HGB CONC 31.1 g/dL (32.0-36.0); Mean Corpuscular Hemoglobin 30.6 pg (27.0-31.0); Mean Corpuscular Volume 98.4 fL (78.0-98.0); Mean Platelet Volume 9.3 fL (7.4-10.4); Platelet Count 231 thou/uL (130-400); RBC Distribution Width 15.4 % (11.5-14.5); Red Blood Cell (RBC) Count 3.38 mill/uL (4.20-5.40); White Blood Cell (WBC) Count 7.2 thou/uL (4.8-10.8)
[2019-05-04 05:49] LABS: Troponin I 0.046 ng/mL (< 0.028)
[2019-05-04 05:59] LABS: ALT (SGPT) 14 U/L (8-55); AST (SGOT) 25 U/L (5-34); Albumin 3.2 g/dL (3.4-4.8); Alkaline Phosphatase 171 U/L (40-110); Anion Gap 24 mmol/L (10-20); BUN (Urea Nitrogen) 62 mg/dL (9.8-20.1); Bilirubin, Total 0.9 mg/dL (0.2-1.2); CRP (Inflammatory) 18.72 mg/dL (= or < 0.5); Calc. Creatinine Clearance 0 mL/min (70-130); Calcium 8.4 mg/dL (7.8-10.44); Carbon Dioxide 19 mmol/L (23-31); Chloride 98 mmol/L (98-107); Estimated GFR-MDRD 6; Globulin 3.2 g/dL (2.4-3.5); Glucose 129 mg/dL (80-115); Potassium 4.6 mmol/L (3.5-5.1); Protein, Total 6.4 g/dL (6.0-8.3); Sodium 136 mmol/L (136-145)
--- NOTE | 2019-05-04 07:35 | CT ---
PRELIMINARY REPORT/[facility]/EMERGENCY AFTER HOURS PROCEDURE Receipt of this report by the clinical staff was confirmed with Gisella Solomon by Macie Murphy on May 04, 2019 01:46:00 CDT. Addendum electronically signed by Macie Murphy on May 04, 2019 1:46:[address] abdomen and pelvis without contrast: Comparison: None Findings: Confluent density in the left lung base with left pleural thickening. Cardiomegaly. Evaluation of the organs and vasculature is limited without contrast. There may be mild left-sided hy dronephrosis. There is left renal cortical atrophy. The right kidney is not identified. No hydronephrosis or symptomatic urinary calculus. No edema surrounding the left kidney. Normal gallbladder. No biliary ductal dilatation. Enlarged liver. Upper anterior abdominal wall hernia contains ascites fluid. There is small volume ascites. No fluid in the pelvis is intermediate density. No aortic aneurysm. The solid organs are otherwise unremarkable within the limits of a noncontrast study. No bowel obstru ction or free air. Right lower quadrant ostomy. Anasarca. The appendix is not clearly identified. Multiple masses or a single complex septated cystic mass in the left ovary measuring 6.4 x 4.4 cm. The right femoral head is absent. There is this is chronic. Left femoral venous catheter terminating in the intrahepatic inferior vena cava. Impression: Small volume ascites with complex density fluid. Cannot exclude hemoperitoneum of uncertain etiology. Complex fluid of other etiology is possible. Small amount of hyperdense material in the left urinary collecting system. Next cannot be confirmed as calcium. The right kidney is absent. There is left renal atrophy with indeterminate hyperdense material in the left urinary collecting system. This could be hemorrhage or hyperdense debris. Pyelonephritis cannot be excluded by CT scan. Correlate with clinical findings. Enlarged liver. Density in the left lung base may be atelectasis and/or pneumonia. There is left pleural thickening o f uncertain etiology. This could be reactive or malignant. Complex cystic mass in the left ovary could be benign or malignant. Consider further evaluation and f ollow up as indicated. ELECTRONICALLY SIGNED BY: Anthony Dumont MD May 04, 2019 1:41:54 AM CDT This report is intended for review by the ordering physician only, in accordance of law. If you recei ve this report in error, please call [facility] at [phone]. FINAL REPORT Exam: Abdomen CT without contrast Pelvic CT without contrast HISTORY: Evaluate for pyelonephritis. Nausea. Vomiting. COMPARISON: None FINDINGS: Pleural and parenchymal changes in the left lung base. Calcification of the mitral annulus. Left-side d vascular catheter, terminating in the hepatic IVC. Limited evaluation of the solid organs by the lack of IV contrast. There is mild hepatomegaly. Nonvisualized right kidney. Diminutive left kidney. No obstructive uropathy. No evidence of a high-grade bowel obstruction. Right lower quadrant ostomy. Mucosal prominence of an undistended stomach, nonspecific. Complex fluid is noted in the abdomen. Complex fluid in the pelvis. Multifocal hypodensities with septations in the left hemipelvis, measuri ng 6.0 x 4.3 cm may be of ovarian origin. Destructive changes involving the right hip. Area of sclerosis suggesting renal osteodystrophy. There is evidence of anasarca. IMPRESSION: 1. Report is in agreement with initial report by [facility]. 2. Nonvisualization of the right kidney. Atrophic left kidney. No evidence of high-grade obstructive uropathy. Technique limits evaluation for pyelonephritis. Correlate clinically. 3. Pleural and parenchymal changes in the left lung base. Correlate for aspiration or pneumonia. 4. Presumed chronic changes involving the right femoral head. Diffuse sclerosis of the osseous struct ures suggesting renal osteodystrophy. 5. Complex intra-abdominal and pelvic fluid. Anasarca. Transcribed Date/Time: 05/04/2019 7:50 AM
[2019-05-04] MEDS ORDERED: Midodrine HCl 5 MG TAB PO SCH (08:00)
[2019-05-04 08:39] LABS: Troponin I 0.039 ng/mL (< 0.028)
[2019-05-04 09:33] LABS: HBSAg Index 0.15 S/CO (0-0.99); Hep B Surf Ag Non-Reactive S/CO (NonReactive)
[2019-05-04] MEDS ORDERED: Epoetin (ESRD) 20,000 UNITS/ML SC SCH (10:00)
--- NOTE | 2019-05-04 10:18 | CON ---
DATE OF CONSULTATION: SERVICE: Renal Medicine. HISTORY OF PRESENT ILLNESS: Ms. Rodriguez is a 68-year-old white female, who was admitted for nausea and vomiting as well as associated shortness of breath. Initial evaluation found her to be in CHF. For this reason, we are being consulted for emergent hemodialysis. Please note, her regular dialysis on Friday, Friday, and Friday. She did miss dialysis yesterday. Chest x-ray shows increased lung markings. CT scan of the chest and abdomen has been done. REVIEW OF SYSTEMS: Positive for mild shortness of breath. Positive for nausea and vomiting. No chest pain. No diarrhea. No constipation. No productive cough. No fever or chills. No syncopal episode. No headache. No gross hematuria. No dysuria. No urinary frequency. PAST MEDICAL HISTORY: 1. ESRD, currently on maintenance hemodialysis. 2. GERD. 3. Hypertension. 4. Hyperlipidemia. 5. Coronary artery disease. 6. DJD. 7. Osteoporosis. 8. Status post bacteremia. 9. Bladder cancer - in remission. 10. Aortic valve disease. 11. Dyslipidemia. 12. History of depression. PAST SURGICAL HISTORY: Status post right distal femoral fracture repair, status post cuffed dialysis catheter placement, status post AV fistula placement, status post urostomy placement, status post aortic valve replacement, status post cardiac cath, status post CABG, and status post hip surgery. SOCIAL HISTORY: The patient lives in [place], but originally from [place]. Lives alone. She is single. No children. Sedentary lifestyle. Currently, no smoking, no alcohol, and no IV drug abuse. Status post multiple blood transfusion. ALLERGIES: CEFTIN, DEMEROL, AND LIPITOR. TRAUMA: Status post leg fracture. HOSPITALIZATIONS: Please see past medical history. IMMUNIZATIONS: Up-to-date. FAMILY HISTORY: No family history of ESRD. MEDICATIONS: Currently on; 1. Florastor 250 mg daily. 2. [place] capsule, one capsule once a day. 3. Multivitamin daily. 4. Meclizine 25 mg t.i.d. as needed. 5. Nae-Mimi one tablet daily. 6. Evista 60 mg daily. 7. Prilosec 20 mg once a day. 8. Bishop 10/325 p.r.n. 9. Lexapro 10 mg once a day. 10. Coreg 12.5 mg b.i.d. 11. Calcium acetate 667 mg one tablet t.i.d. with meals. 12. Aspirin 81 mg tablet once a day. PHYSICAL EXAMINATION: VITAL SIGNS: Blood pressure is 107/62, heart rate noted at 130, respiratory rate 20, temperature 98.4, and O2 saturation 98%. GENERAL: The patient is awake, alert, comfortable, anxious, not in distress. SKIN: Adequate turgor. HEENT: She has a pinkish conjunctivae. Anicteric sclerae. NECK: No neck mass. No carotid bruits. No JVD. CHEST: No deformities. LUNGS: Decreased breath sounds. HEART: Normal sinus rhythm. No murmurs. No gallops. No rubs. ABDOMEN: Globular, soft, and nontender. No masses. EXTREMITIES: Positive for edema. LABORATORY DATA: Laboratories of May 04, 2019; white count 7.2, hemoglobin 10.3. Sodium 136, potassium 4.6, chloride 98, carbon dioxide 19, BUN 62, creatinine 6.94, glucose 129, AST 25, and ALT 14. Troponin I 0.039. Albumin 3.2. IMAGING DATA: Chest x-ray did show CHF. CT scan of the chest and thorax, no evidence of pulmonary embolism. CT scan of the abdomen and pelvis was reviewed. ASSESSMENT AND PLAN: 1. Congestive heart failure. We will do emergent hemodialysis today. Please note, she missed her dialysis yesterday. 2. End-stage renal disease. After dialysis today, we will place her on a regular Friday, Friday, and Friday hemodialysis of 3 hours each treatment. Again, fluid removal only as tolerated. 3. Borderline anemia. We will resume back Epogen at 7500 units subcu every week. Overall, agree with current management. Job ID: [id number]
[2019-05-04] MEDS ORDERED: Digoxin 0.5 MG/2 ML AMP SLOW IVP SCH (11:15)
[2019-05-04] MEDS ORDERED: EPOETIN ALFA-EPBX (ESRD) 4,000 UNIT/ML VIAL SC SCH (12:00)
[2019-05-04] MEDS ORDERED: hydrALAZINE 25 MG TAB PO PRN (12:02)
[2019-05-04] MEDS ORDERED: hydrALAZINE 20 MG/ML VIAL SLOW IVP PRN (12:02)
[2019-05-04] MEDS ORDERED: Vancomycin HCl 750 MG in Sodium Chloride 0.9% 250 ML 250 ML IVPB SCH (12:45)
[2019-05-04] MEDS ORDERED: Vancomycin 1 GM in Premix Bag 1 BAG IVPB SCH ×2 (12:45→21:00)
[2019-05-04] MEDS ORDERED: Vancomycin HCl 250 MG in Sodium Chloride 0.9% 100 ML IVPB SCH (12:45)
[2019-05-04] MEDS ORDERED: HOLD VANCOMYCIN FOR LEVEL >20 FS SCH (12:45)
[2019-05-04] MEDS ORDERED: Vancomycin HCl 500 MG in Sodium Chloride 0.9% 100 ML IVPB SCH (12:45)
--- NOTE | 2019-05-04 13:41 | HP ---
PRIMARY CARE PHYSICIAN: Rachel Hernandez MD TEST BAKER: Tulio Barker MD CHIEF COMPLAINT: "I've been throwing up." HISTORY OF PRESENT ILLNESS: Ms. Rodriguez is a pleasant 68-year-old female, who has a history of end-stage renal disease, coronary artery disease, and a remote history of breast cancer. She says that on Friday she started "throwing up." When asked if she had any other symptoms, she said she really does not know, but when we tried to ask a bit further, she denies any abdominal pain. No fevers. No chills. She does admit to feeling weak yesterday. She said she felt so weak that she did not feel like getting up and going to dialysis. She also admits to having some shortness of breath. Otherwise, she does not have any other complaints. By the time I see here, she says the vomiting has resolved, and she admits to feeling a little short of breath. She also says that her blood pressure does tend to run low, especially when it is time for her to have dialysis and typically she takes midodrine for this. Otherwise, no other complaints. REVIEW OF SYSTEMS: All systems were reviewed and are negative except for that mentioned in the history of present illness. PAST MEDICAL HISTORY: Significant for end-stage renal disease, on hemodialysis; gastroesophageal reflux disease; coronary artery disease; and breast cancer in 1989. PAST SURGICAL HISTORY: She has had bypass surgery, mastectomy as well as nephrectomy. ALLERGIES: TO ATORVASTATIN, CEFUROXIME, MEPERIDINE, AND NITROFURANTOIN. SOCIAL HISTORY: She lives alone. She is a nonsmoker, nondrinker. Her sister, Lily Solis, is her surrogate decision maker and she would like to be a do not resuscitate. FAMILY HISTORY: Significant for Parkinson's disease as well as heart disease in her father. CURRENT MEDICATIONS: She states that these were taken by the emergency room staff and these include; 1. Aspirin 81 mg daily. 2. Albuterol inhaler p.r.n. 3. Calcium acetate, I believe this is PhosLo 667 mg once a day. 4. Coreg 12.5 mg twice daily. 5. Docusate sodium 100 mg daily. 6. Lexapro 10 mg daily. 7. Flonase nasal spray p.r.n. 8. [place] 10/325 as needed. 9. Claritin 10 mg daily. 10. Naprosyn 500 mg daily. 11. Prilosec 20 mg daily. 12. Evista 60 mg daily. 13. Nae-Mimi 0.8 mg daily. 14. Meclizine 25 mg 3 times a day as needed. 15. Multivitamin once a day. 16. [place]-3 fish oil. 17. Florastor 250 mg daily. PHYSICAL EXAMINATION: GENERAL: She is alert and she is oriented, but she appears a bit confused or dazed like. She is chronically ill appearing. VITAL SIGNS: Her current vital signs are heart rate is in the 130s, blood pressure the systolic is around 110/70, respiratory rate is 20, and temperature is 98.4. HEENT: Her pupils are equal, round, and reactive. Extraocular muscles are intact. Her sclerae are anicteric. Throat, she has some mild erythema. There are no exudates. NECK: No adenopathy. No bruits. LUNGS: Clear to auscultation. There are no wheezing, no rales, no rhonchi. CARDIOVASCULAR: She has a normal S1 and S2. She has a grade 3/4 systolic murmur, which is heard almost throughout the entire precordium, but primarily at the base. ABDOMEN: Mildly distended. It is soft, nontender. Positive for bowel sounds. EXTREMITIES: She has some mild erythema. On the lower extremities, some mild calf tenderness bilaterally. No joint effusions and she has significant edema in the right upper extremity, which is pitting and also with some mild erythema. NEUROLOGIC: She is moving all extremities and it is grossly nonfocal. SKIN AND INTEGUMENT: No skin changes. No rash. LABORATORY RESULTS: White blood cell count 7.2, hemoglobin 10.3, hematocrit is 33.2, and platelet count is 231. Chemistry; sodium 136, potassium 4.6, chloride is 98, CO2 is 19, BUN is 62, creatinine 6.94, glucose is 129, and alkaline phosphatase is 171. C-reactive protein was 18.72. Pro-BNP was 981. Urinalysis; the urine was turbid, large amount of leukocyte esterase and elevated wbc's as well as 4+ bacteria. She had a CT scan of the chest showing a 1.3-cm nodule on the right lower lobe, which was nonspecific. There was some distal esophageal thickening and also an area of density in the left lung base, which could be atelectasis, infiltrate, or mass. She also had a CT scan of the abdomen and pelvis demonstrating this similar left lower lobe density. There is also demonstration of a left complex ovarian cyst and the left kidney had changes, which could be considered consistent with pyelonephritis. On her EKG, it was an undetermined rhythm. Heart rate was 130 and she had poor R-wave progression in V1 through V3. ASSESSMENT AND PLAN: 1. This is a 68-year-old female, who presents to the emergency room with nausea and vomiting, which has since resolved. This may have been a problem such as gastroenteritis or could be just a symptom of other acute problems such as sepsis or cardiac in origin. She also had some findings suggestive of potential systemic infection with sepsis. She has a possible infiltrate on CT scan and her urine has significant white cells and bacteria. For the plan of possible sepsis, we will continue the IV antibiotics including the vancomycin and Zosyn. Blood cultures have been taken from the ER and we will follow up in tailor antibiotics related to these findings that is. 2. Tachycardia with an undetermined rhythm. She also has a significant murmur on exam. It does seem to be more prominent than what I remember hearing on the patient a year or so back. We will go ahead and consult Cardiology as well as obtain an echocardiogram. 3. End-stage renal disease, on hemodialysis. We will consult her crusher tender for continued maintenance hemodialysis. 4. Multiple possible masses on CT scan as she improves clinically. Hopefully, these can be addressed in the next day or two. We can consider pulmonology evaluation for the possible findings seen on the CT scan of the chest and then with regard to the possible left complex cystic mass on the ovary. This could be dealt in the outpatient setting. Otherwise, further recommendations to follow based on the patient's clinical course. Job ID: [id number]
[2019-05-04] MEDS ORDERED: Heparin 10,000 UNITS/ 10 ML VIAL ONE (14:22)
--- NOTE | 2019-05-04 14:48 | CON ---
DATE OF CONSULTATION: 05/04/2019 SERVICE: Pulmonology. HISTORY OF PRESENT ILLNESS: Ms. Rodriguez is a 68-year-old female with PMH of ESRD, who presented to the ED complaining of nausea and vomiting and decreased appetite for the past 2 to 3 days. She reports she has not been able to take any of her medications and missed her dialysis appointment yesterday. She also reports weakness and malaise. Today, she is also reporting frontal headache as well as sore throat and a nonproductive cough. Denies any fever or chills. The patient also denies chest pain or palpitations. She does report that she intermittently is short of breath, but is not at this time. The patient is an ESRD patient on Friday, Friday, and Friday dialysis. She does state that she did attend dialysis on Friday. REVIEW OF SYSTEMS: GENERAL: The patient reports weakness and fatigue. The patient denies fever. HEAD, EYES, and EARS: Reports frontal headache. Denies vision changes. Denies decreased hearing. Denies eye pain or ear pain. THROAT: The patient reports nonproductive cough, sore throat. Denies rhinorrhea or congestion. CARDIAC: The patient denies chest pain or palpitations. RESPIRATORY: The patient reports intermittent shortness of breath. Reports wheezing. GASTROINTESTINAL: The patient reports nausea and vomiting. Denies abdominal pain. Denies diarrhea or constipation. Denies hematochezia or melena. GENITOURINARY: The patient reports she does void into her ostomy bag. She denies any blood in her urine. Denies any changes in volume. NEURO: The patient denies weakness or numbness. MUSCULOSKELETAL: The patient denies joint pain or muscle pain. The patient does report chronic low back pain. EXTREMITIES: The patient reports chronic swelling in her right arm after mastectomy. SKIN: The patient reports some erythema on her bilateral legs that has been going on for some time. PAST MEDICAL HISTORY: Significant for. 1. ESRD on dialysis, Friday, Friday, and Friday. 2. GERD. 3. Hypertension. 4. Hyperlipidemia. 5. Osteoporosis. 6. History of [place]. 7. History of right-sided breast cancer, status post mastectomy circa 1999. 8. Coronary artery disease, status post CABG x 2 grafts. 9. Hx of congenital kidney disease s/p right nephrectomy. PAST SURGICAL HISTORY: Right nephrectomy, left arm shunt and right arm shunt, Right femoral head removal, right mastectomy, two-vessel CABG, and left dialysis catheter. PSYCHIATRIC HISTORY: Anxiety and depression. SOCIAL HISTORY: Denies tobacco, alcohol, or drug use. ALLERGIES: ATORVASTATIN, CEFTIN, CEFUROXIME, DEMEROL, LIPITOR, MEPERIDINE, AND NITROFURANTOIN. FAMILY HISTORY: Reports multiple strokes in her father, denies family history of kidney disease. MEDICATIONS: 1. Aspirin. 2. Albuterol. 3. Coreg. 4. Docusate. 5. Lexapro. 6. Flonase. 7. [place]. 8. Claritin. 9. Naproxen. 10. Prilosec. 11. Evista. 12. Nae-[place]. 13. Meclizine. 14. Multivitamin. 15. [place]-3. 16. Florastor. PHYSICAL EXAMINATION: VITAL SIGNS: Pulse of 132, respirations 28, blood pressure 107/62, temperature 98.4, and O2 saturation 98%. GENERAL: The patient appears very anxious. She is lying in the bed, in no acute distress. HEAD: Normocephalic, atraumatic. EYES: PERRLA. EARS: The patient is somewhat deaf. MOUTH: Dry mucous membranes. Mild erythema. No exudate. THROAT: Bilateral cervical lymphadenopathy. Supple. CARDIAC: Rapid irregularly irregular rhythm. Systolic murmur 3/6 present. LUNGS: Diminished breath sounds at the bases. No wheezing. Mild expiratory crackles. ABDOMEN: Soft and nontender. Positive bowel sounds. Ostomy bag located in the right lower quadrant. BACK: No CVA tenderness. Mild midline tenderness above the sacrum. MUSCULOSKELETAL: Strength 5/5 in upper and lower extremities. EXTREMITIES: Decreased tear in bilateral lower extremities. 2 to 3+ pitting edema of right upper extremity with some erythema and warmth diffusely. PSYCHIATRIC: The patient appears very anxious. She is engaged. The patient is alert and oriented to her place and situation. LABORATORY DATA: Labs are significant for normal white blood cell count of 7.2, hemoglobin has dropped from 12.4 yesterday evening to 10.3 today, and platelets are normal at 231. Sodium 136, potassium 4.6, chloride 98, carbon dioxide 19, BUN 62, and creatinine 6.94 with an estimated GFR of 6. Glucose is 129. Lactic acid was within the normal range. CMP is significant for an alkaline phosphatase of 171. CK-MB was 1.1. Troponin initially up-trended from 0.041 to 0.063 and then down to 0.046. CRP is elevated at 18.72. BNP is elevated at 981. Urinalysis showed chronic colonization. Hep B surface antigen was nonreactive. IMAGING DATA: Chest x-ray showed mild progressive volume overload with scarring in the right upper lobe. CT of the chest ruled out pulmonary embolus. However, it did show a mass on the left chest wall about 4.7 cm and appeared to be fluid. Also showed an irregular 1.3 cm mass in the right lower lobe and a rounded mass in the posterior left lower lobe, showed lymphadenopathy. CT abdomen showed ascites and anasarca. Cannot rule out hemoperitoneum. Ovarian complex cystic lesion. Mild hydronephrosis right kidney. The right femoral head was also absent. EKG showed atrial fibrillation with rapid ventricular response. ASSESSMENT AND PLAN: 1. Severe sepsis 2/2 possible aspiration pneumonia. Continue vanc and zosyn. Patient will need antibiotic coverage for at least 7 days. Blood cultures pending. 2. Acute congestive heart failure exacerbation 2/2 missing dialysis. The patient missed dialysis yesterday and is receiving dialysis today with Dr. Rucker. 3. End-stage renal disease on Friday, Friday, and Friday dialysis. The patient will resume Friday, Friday, and Friday dialysis after today per Nephrology recommendations. 4. Atrial fibrillation with rapid ventricular response. The patient reports she has had this in the past, and she has had a cardiac ablation in 2017. After digoxin, her current heart rate is improved to 120s. Continue heparin for anticoagulation. Recommend cardiology consult with her ham stringer, Dr. Eubanks. 5. Pulmonary infiltrate vs mass and nodules, concern for metastasis vs primary disease. CT of the chest showed an irregular nodule in the right lower lobe that measures 1.3 cm. Also showed a possible left lower lobe rounded mass vs atelectasis vs infiltrate. Recommend treating for sepsis 2/2 pneumonia in the acute setting, then performing a PET scan in 6 weeks for further evaluation and characterization of these lesions. 6. Anemia. This is likely related to her chronic kidney disease. We will continue to monitor her hemoglobin. Start Epogen per Nephrology recommendations. 7. Ovarian complex cystic lesions. Transvaginal US to further characterize lesions. Patient will potentially need follow up with BARREL HEADER oncologist if it appears to be cancerous. With history of breast cancer, she is at a higher risk of having ovarian cancer. ATTENDING ADDENDUM: 70 minutes have been devoted to this patient in various activities. I personally reviewed all imaging studies and laboratory data noted within this document. For fifty percent of this time, I was interacting with the patient at the bedside or coordinating care with the care team. For the remainder of the time I was immediately available to the patient in the hospital unit. Job ID: [id number] MTDD
--- NOTE | 2019-05-04 16:16 | ULT ---
Exam: Transabdominal and endovaginal pelvic ultrasound HISTORY:Ovarian cyst on CT. Surgical removal of the uterus. COMPARISON: None TECHNIQUE: Transabdominal and endovaginal imaging of the pelvis is performed. Ovaries are interrogate d with grayscale, color flow, Doppler imaging and spectral wave form analysis FINDINGS: Uterus: Surgically removed. Uterus measuring: Not applicable Endometrium: Surgically removed. Endometrium diameter: Not applicable. . Free fluid: There is free fluid in the pelvis. Right ovary: Not visualized. Left ovary: Complex septated anechoic structure in the left adnexa measuring 4.3 x 6.7 x 6.6 cm. Find ings correspond to recent CT. Ovarian Doppler: There is vascular flow to the septated components of a predominantly anechoic focus in the left adnex a. IMPRESSION: 1. Septated complex cystic structure left adnexa which is presumed to be of ovarian origin. DENTAL CERAMIST consu ltation is recommended. Line tube. Free fluid in the pelvis.
[2019-05-04] MEDS: Heparin 5,000 UNITS/ML VIAL SC SCH ×2 (17:08→21:28)
[2019-05-04] MEDS: Piperacillin/Tazobactam 2.25 GM in Sodium Chloride 0.9% 100 ML IVPB SCH ×2 (17:28→21:29)
--- NOTE | 2019-05-04 22:35 | CON ---
DATE OF CONSULTATION: HISTORY OF PRESENT ILLNESS: This patient is a 68-year-old with a history of coronary artery bypass surgery and aortic valve replacement, who presents with increasing dyspnea. The patient also has history of paroxysmal atrial fibrillation. The patient has been admitted previously with a GI hemorrhage and has not been on chronic anticoagulation therapy. She was admitted with increasing dyspnea and increasing nausea. The patient denies having any chest discomfort. PAST MEDICAL HISTORY: Coronary bypass surgery, aortic valve replacement, nephrectomy, mastectomy, right femur surgery, history of an ileostomy, partial hysterectomy,and a fistula. ALLERGIES: LIPITOR, MEPERIDINE, CEFUROXIME SOCIAL HISTORY: Nonsmoker. MEDICATIONS: See nursing list. REVIEW OF SYSTEMS: Ten-point system otherwise unremarkable. PHYSICAL EXAMINATION: GENERAL: Well-developed woman, in no acute distress with a blood pressure of 98 /52, heart rate is 110 and irregular. NECK: Showed no jugular venous distention. LUNGS: Have few crackles in both bases. HEART: Irregular rate and rhythm. Normal S1, S2 with a 3/6 systolic murmur. ABDOMEN: Distended. EXTREMITIES: Show moderate bilateral edema. Vascular radial pulses 2+. LABORATORY DATA: White blood count 7.2, hemoglobin 10.3, hematocrit 33.2, and platelets are 231. Sodium is 136, potassium 4.6, chloride 98, bicarbonate 19, BUN 62, creatinine 6.9. IMAGING: EKG atrial fibrillation with poor R-wave progression. IMPRESSION: 1. Atrial fibrillation with a rapid ventricular response. 2. History of coronary artery bypass surgery. 3. History of aortic valve replacement. 4. History of gastrointestinal hemorrhage. 5. End-stage renal disease. 6. Congestive heart failure. PLAN: This patient presents with congestive heart failure and rapid atrial fibrillation. She has a history of GI hemorrhage. She was felt to be at high risk for recurrent hemorrhage and she has not been on anticoagulation therapy. At this time, we will try to rate control the patient,and would consider the patient for a Watchman device. We will follow this patient with you through her hospitalization. Job ID: [id number] MTDD
[2019-05-05 05:03] LABS: Anion Gap 20 mmol/L (10-20); BUN (Urea Nitrogen) 40 mg/dL (9.8-20.1); Calc. Creatinine Clearance 10 mL/min (70-130); Calcium 8.1 mg/dL (7.8-10.44); Carbon Dioxide 19 mmol/L (23-31); Chloride 99 mmol/L (98-107); Estimated GFR-MDRD 8; Glucose 78 mg/dL (80-115); Potassium 4.4 mmol/L (3.5-5.1); Sodium 134 mmol/L (136-145)
[2019-05-05 05:23] LABS: Band 5 % (5-11); Eosinophils 1 % (0-10); Hemoglobin 10.5 g/dL (12.0-16.0); Hypochromia SLIGHT = 6-15 cells (100X) (0-5/hpf); Lymphocytes 10 % (21-51); MDiff Complete? YES; Mean Corpuscular HGB CONC 32.3 g/dL (32.0-36.0); Mean Corpuscular Hemoglobin 32.3 pg (27.0-31.0); Mean Platelet Volume 10.7 fL (7.4-10.4); Monocytes 5 % (0-10); Neutrophil 79 % (42-75); Platelet Count 154 thou/uL (130-400); Platelet Morphology Comment Appears Adequate; RBC Distribution Width 15.5 % (11.5-14.5); Red Blood Cell (RBC) Count 3.25 mill/uL (4.20-5.40); White Blood Cell (WBC) Count 6.5 thou/uL (4.8-10.8)
[2019-05-05] MEDS: Piperacillin/Tazobactam 2.25 GM in Sodium Chloride 0.9% 100 ML IVPB SCH ×3 (05:23→22:41)
[2019-05-05] MEDS ORDERED: Loratadine 10 MG TAB PO PRN (09:09)
[2019-05-05] MEDS ORDERED: PROVENTIL INHALER 6.7 G (200 INHALATIONS) INH PRN (09:11)
--- NOTE | 2019-05-05 09:17 | PDOC.HOSPP ---
- Subjective Encounter Date: 05/05/19 Encounter Time: 09:16 Subjective: Ms. Rodriguez was seen today in follow-up of sepsis, and AFIB with rvr. She says she feels a little weaker today than yesterday. She denies dyspnea, or chest pain. She notes the nausea and vomiting has resolved. - Objective Vital Signs & Weight: Vital Signs (12 hours) Temp Pulse Resp BP Pulse Ox 05/05/19 08:25 96 05/05/19 08:23 107 H 28 H 97 05/05/19 07:41 98 F 05/05/19 07:21 97 05/05/19 04:19 89 23 H 98 05/05/19 04:00 98.0 F 05/04/19 22:00 93/40 L 05/04/19 21:37 112 H 28 H 95 Weight Weight 138 lb 3.677 oz Most Recent Monitor Data Heart Rate from ECG 103 NIBP 102/61 NIBP BP-Mean 74 Respiration from ECG 24 SpO2 96 I&O: 05/04/19 05/05/19 05/06/19 06:59 06:59 06:59 Intake Total 680 Output Total 50 Balance 630 Result Diagrams: 05/05/19 04:05 05/05/19 04:05 Hospitalist ROS - Medication Medications: Active Medications Generic Name Dose Route Start Last Admin Trade Name Freq PRN Reason Stop Dose Admin Albuterol/Ipratropium 3 ml 05/04/19 06:30 05/05/19 08:23 Duoneb NEB 3 ml [id number] FERNANDO Administration Albuterol/Ipratropium 3 ml 05/04/19 04:51 05/05/19 04:19 Duoneb NEB 3 ml [id number] PRN Administration SOB &/or Wheezing Epoetin Billy-epbx 7,500 unit 05/04/19 12:00 05/04/19 17:19 Retacrit SC 7,500 unit Q7D FERNANDO Administration Heparin Sodium (Porcine) 5,000 units 05/04/19 15:00 05/04/19 21:28 Heparin SC 5,000 units TID FERNANDO Administration Piperacillin Sod/Tazobactam 100 mls @ 200 mls/hr 05/04/19 14:00 05/05/19 05: 23 Sod 2.25 gm/ Sodium Chloride IVPB 100 mls Q8HR FERNANDO Administration - Exam Eye: PERRL Heart: RRR, murmur present, II/IV Respiratory: CTAB, no wheezes, no rales, no ronchi, normal chest expansion, no tachypnea, normal percussion Gastrointestinal: soft, non-tender, non-distended, normal bowel sounds, no palpable masses, no hepatomegaly, no splenomegaly Extremities: no cyanosis Hosp A/P (1) Sepsis Code(s): A41.9 - SEPSIS, UNSPECIFIED ORGANISM Status: Acute Qualifiers: Sepsis type: methicillin resistant Staphylococcus aureus Qualified Code(s) : A41.02 - Sepsis due to Methicillin resistant Staphylococcus aureus (2) ESRD (end stage renal disease) on dialysis Code(s): N18.6 - END STAGE RENAL DISEASE; Z99.2 - DEPENDENCE ON RENAL DIALYSIS Status: Acute (3) CAD (coronary artery disease) Code(s): I25.10 - ATHSCL HEART DISEASE OF [place] CORONARY ARTERY W/O ANG PCTRS Status: Acute (4) Hypertension Code(s): I10 - ESSENTIAL (PRIMARY) HYPERTENSION Status: Chronic Qualifiers: (5) Orthostatic hypotension Code(s): I95.1 - ORTHOSTATIC HYPOTENSION Status: Chronic (6) Atrial fibrillation with RVR Code(s): I48.91 - UNSPECIFIED ATRIAL FIBRILLATION Status: Acute (7) Pulmonary mass Code(s): R91.8 - OTHER NONSPECIFIC ABNORMAL FINDING OF LUNG FIELD Status: Acute (8) Complex cyst of left ovary Code(s): N83.292 - OTHER OVARIAN CYST, LEFT SIDE Status: Acute - Plan * Sepsis- from presumed pneumonia- continue empiric antibiotics * AFIB with RVR- Cardiology input appreciated. Her heart rate is a bit better today * She is not on anticoagulation due to high risk of bleed * Pulmonary nodule - await Pulmonary Consult * Orthostatic hypotension- continue Midodrine * CAD- stable * ESRD- continue as per Nephrology * Re-start home medications * Await Echo results
--- NOTE | 2019-05-05 09:33 | PRG ---
DATE OF SERVICE: 05/05/2019 SUBJECTIVE: Ms. Rodriguez is a 68-year-old white female with ESRD and currently on maintenance hemodialysis. The patient was initially admitted for CHF and shortness of breath. She underwent hemodialysis. Her breathing is much improved. No other complaints today. The patient has been scheduled for regular dialysis today. My plan is to do a 1-hour ultrafiltration with 2 hours of hemodialysis. Fluid removal only to be done as tolerated. OBJECTIVE: VITAL SIGNS: Blood pressure is 111/70, heart rate is 70. GENERAL: Awake, alert, comfortable, not in distress. SKIN: Adequate turgor. HEENT: Slightly pale conjunctivae. Anicteric sclerae. No JVD. CHEST: No deformities. LUNGS: Decreased breath sounds. HEART: Normal sinus rhythm. No murmurs. No gallops. No rubs. ABDOMEN: Globular, soft, and nontender. No masses. EXTREMITIES: No edema. Medications of May 05, 2019, reviewed. Blood culture May 04, 2019, in progress. Laboratories of May 05, 2019; white count 6.5, hemoglobin 10.5. Sodium 134, potassium 4.4, chloride 99, carbon dioxide 19, BUN 40, creatinine 5.18, glucose 78, and calcium 8.1. Carcinoembryonic antigen 5.09. CT scan of the abdomen and pelvis on May 04, 2019, showed density in the left lung base. There was also a complex cystic mass in the left ovary. ASSESSMENT AND PLAN: 1. End-stage renal disease, stable. We will continue current hemodialysis regimen. Again, fluid removal only as tolerated. As previously mentioned, we will do 1-hour ultrafiltration and then a 2-hour hemodialysis. 2. Complex cystic lesion in the ovary/elevated CEA - this patient is not amenable for any invasive procedure or exploratory laparotomy. Her comorbid problems are quite overwhelming. I have discussed this with the sister and I feel that the conservative management is appropriate for the patient. 3. Anemia. Continue weekly Epogen. Job ID: [id number]
[2019-05-05 09:44] LABS: Vancomycin, Random 11.6 ug/mL (See Comment)
[2019-05-05] MEDS ORDERED: Saccharomyces boulardii 250 MG CAP PO SCH (10:00)
--- NOTE | 2019-05-05 11:19 | PRG ---
DATE OF SERVICE: 05/05/2019 SERVICE: Pulmonary Medicine. INTERVAL HISTORY: The patient is doing okay from respiratory standpoint. That being said, we found multiple things on different studies. How to proceed is the big question moving forward. She has a small volume ascites around the liver. It is not clear what the etiology of this fluid is. She also has a complex cystic mass at the left adnexa, and there is a little bit of free fluid in the pelvis. She has a pulmonary infiltrate versus atelectasis (mass less likely) in the left lower lobe and scattered pulmonary nodules throughout bilateral lung griffiths and a small atelectasis/infiltrate in the right upper lobe. On empiric antibiotics, her blood pressures have firmed up very nicely. She is tolerating dialysis this morning. At this point, we will need to establish a plan of action moving forward when she clears her inflammatory profile. We had CA-125 and CEA. Those things were essentially unremarkable yesterday. All of these findings are in the setting of a patient who has a very poor functional status. She is bound to a wheelchair or bed, has end-stage renal disease and horrendous peripheral vascular disease. She has been on dialysis for over eight years. She also has a known history of breast cancer. Overall, this is going to be a challenging situation. PHYSICAL EXAMINATION: VITAL SIGNS: Afebrile, pulse 107, blood pressure 102/61, respirations 24, and saturation 100% on 2 L nasal cannula. GENERAL: The patient is awake and alert, in no apparent distress. LUNGS: Decent air entry. Crackling is improved. No prolonged expiratory phase or wheezing is appreciated. Rhonchi are present, but clear with cough. HEART: Normal rate, regular. ABDOMEN: Soft. Nontender. Bowel sounds are present. MUSCULOSKELETAL: No cyanosis or clubbing. She has chronic edema of the right upper extremity, but otherwise, there is no significant edema. NEUROLOGIC: Grossly nonfocal. LABORATORY DATA: WBC 6.5, hemoglobin 10.5 and stable, and platelets 154,000. Creatinine 5.18 and downtrending, BUN 40. Basic metabolic profile is otherwise unremarkable. CA-125 and CEA are both unremarkable. Urinalysis is significant for pyuria, bacteria, and leukocyte esterase, though nitrites are unremarkable. There is some degree of proteinuria present. Vancomycin is 11.6. Blood cultures x2 and urine culture remain unremarkable. IMAGING: Pelvic ultrasound demonstrates a complex cystic masslike lesion in the left adnexa. There is also some free fluid. ASSESSMENT: 1. Severe sepsis secondary to aspiration-related disease. 2. Healthcare-associated pneumonia? 3. Pulmonary mass versus rounded atelectasis (I feel a pulmonary mass is slightly less likely). 4. Pulmonary nodules and infiltrate. 5. Atrial fibrillation with rapid ventricular response, currently returned to sinus. 6. Left adnexal lesion with free fluid in the pelvis. 7. Small volume ascites around the liver. DISCUSSION AND PLAN: I will give the patient a laboratory holiday tomorrow morning. I will talk to Interventional Radiology about whether or not a paracentesis of the perihepatic fluid collection is feasible. If it is, this can be sent for routine cultures and cytology. For the lung lesions, I am inclined to treat with 7- to 10-day course of antibiotics directed at healthcare-associated aspiration organisms. I would like to perform a PET scan in 4 to 6 weeks in the outpatient setting. That being said, I would put that evaluation on hold should she be a candidate for a LUMBER STICKER/ONC procedure. HORTICULTURE WORKER consultation will be placed to formulate a plan of action moving forward with this adnexal lesion. At this point, metastatic ovarian cancer is well within our differential. She is stable for transition to the floor. Pulmonary/Critical Care will continue to follow along, however. Job ID: [id number] [facility] HOSPITALSandeep
--- NOTE | 2019-05-05 11:51 | ULT ---
EXAM: US Abdomen Limited CLINICAL HISTORY: Evaluate for ascites. Possible metastatic ovarian cancer. COMPARISON: None. FINDINGS: Targeted sonographic imaging of the abdomen does not demonstrate significant ascites. There is no juan dence of a fluid pocket which would allow for a ultrasound-guided diagnostic or paracentesis. IMPRESSION: No significant fluid to allow for a ultrasound-guided diagnostic paracentesis. Findings conveyed to Sandeep Parsons 05/05/2019 11:48 AM Code CR
[2019-05-05] MEDS: Heparin 5,000 UNITS/ML VIAL SC SCH ×3 (13:38→21:15)
[2019-05-05] MEDS: Ondansetron ODT 4 MG TAB PO PRN (14:12)
[2019-05-05] MEDS: Calcium Acetate 667 MG CAP PO SCH ×2 (14:12→16:25)
[2019-05-05 14:14] VITALS: BMI 24.5
[2019-05-05] MEDS: HYDROcodone/Acetaminophen 10/325 mg Tablet PO PRN (16:24)
[2019-05-05] MEDS: Acetaminophen 325 MG TAB PO PRN (21:15)
[2019-05-05] MEDS: Pravastatin Sodium 20 MG TAB PO SCH (21:15)
[2019-05-05] MEDS: Ondansetron PF 4 MG/2 ML Vial IVP PRN (21:15)
[2019-05-06] MEDS: HYDROcodone/Acetaminophen 10/325 mg Tablet PO PRN (04:52)
[2019-05-06] MEDS: Piperacillin/Tazobactam 2.25 GM in Sodium Chloride 0.9% 100 ML IVPB SCH ×2 (06:29→17:45)
--- NOTE | 2019-05-06 08:01 | CON ---
DATE OF CONSULTATION: 05/05/2019 CONSULTING SERVICE: COMPUTER ASSEMBLER. HISTORY OF PRESENT ILLNESS: This is a 68-year-old G0, who presented to the ED yesterday with complaints of nausea, vomiting, decreased appetite, general poor feeling and increased shortness of breath. The patient reports normal bowel movements. She denies any pelvic pain. She states she also does not have any increased abdominal bloating or gastrointestinal reflux symptoms. She does not have pelvic pain and has normal bowel movements as long as she takes her laxative. She does not urinate. 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 She does feel very weak and generally has muscular weakness and deconditioning. The patient is bound to a wheelchair or a scooter. On admission, patient was found to have pneumonia as well as pulmonary nodules and also congestive heart failure secondary to missing dialysis due to her current state of illness. She was incidentally found to have a pelvic mass. It is complex in nature, off the left adnexa. Patient has a history of hysterectomy at age 18 secondary to being told she should not have children due to her kidney disease. REVIEW OF SYSTEMS: A 12-point review of systems is negative except as noted in HPI. PAST MEDICAL HISTORY: 1. End-stage renal disease, on hemodialysis. 2. GERD. 3. Coronary artery disease. 4. Peripheral vascular disease. 5. Osteoporosis. 6. History of breast cancer in 1999. 7. History of congenital kidney disease. PAST SURGICAL HISTORY: 1. Marked right mastectomy followed by radiation and a right lymphadenectomy. 2. CABG x2. 3. Nephrectomy at age 10. 4. Hysterectomy, retained ovaries, age 18. 5. Multiple AV fistulas and revisions. 6. Ileal conduit with ileostomy. 7. Aortic valve repair. 8. Right knee surgery for femur fracture. ALLERGIES: ATORVASTATIN, CEFUROXIME, MEPERIDINE, AND NITROFURANTOIN. CURRENT MEDICATIONS: 1. DuoNeb. 2. 81 mg aspirin. 3. PhosLo 2,000 mg p.o. t.i.d. 4. Sensipar 30 mg p.o. Friday, Friday, Friday. 5. Epoetin. 6. Lexapro 20 mg p.o. daily. 7. ProAmatine 5 mg p.o. daily. 8. Zofran 4 mg p.o. p.r.n. 9. Protonix 40 mg p.o. b.i.d. 10. Zosyn q.8 hours. 11. Pravastatin 10 mg p.o. at bedtime. 12. Evista 60 mg p.o. daily. 13. Florastor 250 mg p.o. daily. 14. Vancomycin and vitamin B complex. FAMILY HISTORY: Parkinson's and CVA. SOCIAL HISTORY: Negative x3. PHYSICAL EXAMINATION: VITAL SIGNS: Blood pressure 70/48, pulse 113, respirations 27, O2 saturation 97% on room air. GENERAL: Appears slightly short of breath, however, no acute distress. CARDIAC: Tachycardic, irregular rate and rhythm. 3/6 systolic murmur. LUNGS: Wheezes diffusely with associated rhonchi. ABDOMEN: Soft, nontender, nondistended. Ileostomy site appears normal. Positive bowel sounds. EXTREMITIES: Some edema especially in the right arm from lymphedema and extremities with some mild edema, pitting. PELVIC: Deferred. LABORATORY DATA: CA-125 is 46, normal is less than 35. CEA is 5.09, normal is less than 5. CA99 is pending. Pelvic ultrasound shows a complex septated anechoic structure in the left adnexa measuring 4.3 x 6.7 x 6.6 cm with vascular flow to the septated component. Chest CT shows abdominal and chest lymphadenopathy or rounded masslike opacity in the left lower lobe, irregular 1.3 cm nodule within the medial right lower lobe. ASSESSMENT AND PLAN: This is a 68-year-old in overall general poor health with new incidental finding of pelvic mass, likely ovarian in etiology. Patient's CA-125 is elevated for postmenopausal woman in the setting of a complex mass with increased internal flow and abnormal CA-125. Would recommend followup as an outpatient with [facility]. Do not recommend surgery during this admission for definitive diagnosis since the appropriate subspecialist is not available at this location as this very well could represent a malignancy. However, other things on the differential are serous cystadenoma or mucinous cystadenoma. There is a small amount of free fluid, which makes this more concerning for a malignant process. An abdominal ultrasound this morning revealed that there was not adequate perihepatic fluid to do a paracentesis for further diagnostic testing. These findings were discussed with the patient. She understands that she will follow up as an outpatient for further surgical management of her adnexal mass. Job ID: [id number]
[2019-05-06] MEDS: Heparin 5,000 UNITS/ML VIAL SC SCH ×3 (08:08→21:05)
[2019-05-06] MEDS: Calcium Acetate 667 MG CAP PO SCH ×3 (08:08→16:59)
[2019-05-06] MEDS: Aspirin 81 mg Enteric Coated Tablet PO SCH (08:08)
[2019-05-06] MEDS: Folic Acid/Vit B Comp W-C PO SCH (08:08)
[2019-05-06] MEDS: Midodrine HCl 5 MG TAB PO SCH (08:08)
[2019-05-06] MEDS: Saccharomyces boulardii 250 MG CAP PO SCH (08:08)
[2019-05-06] MEDS: Escitalopram Oxalate 20 mg Tablet PO SCH (08:09)
[2019-05-06] MEDS: Fluticasone Propionate Nasal Spray 16 gm Bottle NASAL SCH (08:09)
[2019-05-06 08:57] LABS: #Basophils 0.1 thou/uL (0.0-0.2); #Eosinphils 0.2 thou/uL (0.0-0.7); #Monocytes 0.7 thou/uL (0.11-0.59); %Basophils 1.2 % (0.0-1.0); %Eosinophils 3.3 % (0.0-10.0); %Lymphocytes 16.8 % (21.0-51.0); %Monocytes 11.6 % (0.0-10.0); %Neutrophils 67.1 % (42.0-75.0); Hemoglobin 10.4 g/dL (12.0-16.0); Mean Corpuscular HGB CONC 31.8 g/dL (32.0-36.0); Mean Corpuscular Hemoglobin 30.9 pg (27.0-31.0); Mean Corpuscular Volume 97.3 fL (78.0-98.0); Mean Platelet Volume 9.1 fL (7.4-10.4); Platelet Count 200 thou/uL (130-400); RBC Distribution Width 15.2 % (11.5-14.5); Red Blood Cell (RBC) Count 3.37 mill/uL (4.20-5.40)
[2019-05-06 09:23] LABS: Anion Gap 19 mmol/L (10-20); BUN (Urea Nitrogen) 26 mg/dL (9.8-20.1); Calc. Creatinine Clearance 12 mL/min (70-130); Calcium 8.7 mg/dL (7.8-10.44); Carbon Dioxide 26 mmol/L (23-31); Chloride 95 mmol/L (98-107); Estimated GFR-MDRD 10; Glucose 99 mg/dL (80-115); Potassium 3.7 mmol/L (3.5-5.1); Sodium 136 mmol/L (136-145)
--- NOTE | 2019-05-06 09:42 | PRG ---
DATE OF SERVICE: 05/06/2019 SERVICE: Renal Medicine. SUBJECTIVE: Ms. Rodriguez is a 68-year-old white female with ESRD and currently on maintenance hemodialysis. During the initial workup, where the patient had CEA done and CT scan of the abdomen and pelvis was done and it showed a complex cystic lesion in the ovary. TREE DRILLER consultation has been done. An ultrasound of the abdomen was done to see if she has any significant fluid that can be aspirated. Radiology evaluated this and felt that there was no fluid that can be aspirated. As per recommendation by the financial retirement plan specialist, the patient will have an outpatient followup for further management. Her shortness of breath is much improved with dialysis. She voices no new complaints today, except they did not give her sleeping pill last night. No complaints of chest pain or shortness of breath. OBJECTIVE: VITAL SIGNS: Blood pressure is noted at 108/55, heart rate 100 respiratory rate 18, temperature 98.1, and pulse ox 92%. GENERAL: Noted to be awake, alert, comfortable, not in distress. SKIN: Adequate turgor. HEENT: She has a slightly pale conjunctivae. Anicteric sclerae. NECK: No neck mass. No carotid bruits. No JVD. CHEST: No deformities. LUNGS: Clear breath sounds. No wheezing. No crackles. HEART: Normal sinus rhythm. No murmur. No gallops. No rubs. ABDOMEN: Globular, soft, nontender. No masses. EXTREMITIES: No edema. No deformities. MEDICATIONS: Medications of May 06, 2019, reviewed. LABORATORY DATA: Laboratories of May 06, 2019; white count 6, hemoglobin 10.4. Sodium 134, potassium 4.4, chloride 99, carbon dioxide 19, BUN 40, creatinine 5.18, glucose 78, calcium 8.1. CA 19-9 of 10 normal. CEA 5.09. CA-125 of 46-mildly elevated. ASSESSMENT AND PLAN: 1. End-stage renal disease-continuing Friday, Friday, and Friday hemodialysis. I have made arrangements for her continued hemodialysis on Friday, Friday, and Friday. Fluid removal will be done only as tolerated by the patient. 2. Anemia. Continuing weekly Epogen. 3. Congestive heart failure/shortness of breath, much improved with hemodialysis. 4. Complex ovarian cysts-Gynecology following for further evaluation as an outpatient. 5. Agree with current management. Job ID: [id number]
--- NOTE | 2019-05-06 13:28 | PRG ---
DATE OF SERVICE: 05/06/2019 SERVICE: Pulmonary Medicine. INTERVAL HISTORY: The patient is doing fine from respiratory standpoint. Unfortunately, she did not have enough ascites to tap yesterday. In fact, the perihepatic fluid collection was not identified on the ultrasound. As such, this procedure was not performed. She feels like her strength is improving a little bit, and her appetite is starting to come around a touch. Otherwise, there has been no interval change to her condition overnight. She has been transitioned out of the IMCU to the floor. Her night was uneventful. PHYSICAL EXAMINATION: VITAL SIGNS: Afebrile, pulse 103, blood pressure 93/52, respirations 20, and saturation 98% on room air. GENERAL: The patient is awake and alert, in no apparent distress. LUNGS: Decent air entry without any prolonged expiratory phase. Rhonchi clear with cough. No crackles or wheezing appreciated. HEART: Normal rate and regular. ABDOMEN: Soft, nontender, and nondistended. Bowel sounds are positive. MUSCULOSKELETAL: No cyanosis or clubbing. She has lymphedema of the right upper extremity. NEUROLOGIC: Grossly nonfocal. LABORATORY DATA: WBC 6.0, hemoglobin 10.4, platelets 200,000. Band count was 5% yesterday. Neutrophil count has improved to 67%. Creatinine 4.28. Basic metabolic profile is otherwise unremarkable. Urinalysis is positive for leukocyte esterase, white blood cells, and 4+ bacteria. E. coli is growing in the urine. Blood cultures x2 are unremarkable. IMAGING: Abdominal ultrasound demonstrates no collection of fluid here. Diagnostic paracentesis cannot be performed. ASSESSMENT: 1. Severe sepsis secondary to aspiration disease, suspected. 2. Healthcare-associated pneumonia. 3. Pulmonary mass versus rounded atelectasis versus infiltrate (I feel mass is less likely given its characteristics). 4. Pulmonary nodule, infiltrate. 5. Atrial fibrillation with rapid ventricular response, returned to sinus rhythm. 6. Left adnexal mass with free fluid in the pelvis. 7. Small volume ascites, resolved based on most recent ultrasound. DISCUSSION AND PLAN: The patient does not have enough fluid to perform a paracentesis. As such, we will have to come up with a different course of action moving forward. She is deciding on whether or not she would like to see Gynecologic Oncology in either [place] or [facility]. I would give her a 7-day course of antibiotics directed at aspiration-related organisms. She should have a PET scan performed in 4 to 6 weeks in the outpatient setting to see whether or not these pulmonary lesions are hypermetabolic. That being said, this procedure would prove necessary if an ovarian cancer was to be identified. At this point, she has no further requirements for inpatient Pulmonary or Critical Care opinion, and I will sign off. Please call with additional questions or concerns through time. Job ID: [id number]
[2019-05-06] MEDS: Ondansetron ODT 4 MG TAB PO PRN (13:43)
--- NOTE | 2019-05-06 17:00 | PDOC.HOSPP ---
- Subjective Encounter Date: 05/06/19 Encounter Time: 16:58 Subjective: Ms. Rodriguez was seen today in follow-up of nausea and vomiting. This has resolved. - Objective Vital Signs & Weight: Vital Signs (12 hours) Temp Pulse Resp BP Pulse Ox 05/06/19 14:47 78 18 94 L 05/06/19 11:02 98.0 F 103 H 20 93/52 L 90 L 05/06/19 10:06 98 05/06/19 10:05 80 16 98 05/06/19 08:00 92 L 05/06/19 07:21 98.1 F 100 18 108/55 L 92 L Weight Admit Weight 136 lb 14.513 oz Weight 138 lb 10.732 oz Most Recent Monitor Data Heart Rate from ECG 101 NIBP 109/68 NIBP BP-Mean 69 Respiration from ECG 25 SpO2 98 I&O: 05/05/19 05/06/19 05/07/19 06:59 06:59 06:59 Intake Total 680 Output Total 50 Balance 630 Result Diagrams: 05/06/19 08:41 05/06/19 08:41 Hospitalist ROS - Medication Medications: Active Medications Generic Name Dose Route Start Last Admin Trade Name Freq PRN Reason Stop Dose Admin Acetaminophen 650 mg 05/04/19 12:02 05/05/19 21:15 Tylenol PO 650 mg Q4H PRN Administration Headache/Fever/Mild Pain (1-3) Hydrocodone Bitart/Acetaminophen 1 tab 05/05/19 09:11 05/06/19 04:52 [place] 10/325 PO 1 tab BID PRN Administration Pain Albuterol/Ipratropium 3 ml 05/04/19 06:30 05/06/19 14:47 Duoneb NEB 3 ml [id number] FERNANDO Administration Albuterol/Ipratropium 3 ml 05/04/19 04:51 05/05/19 04:19 Duoneb NEB 3 ml [id number] PRN Administration SOB &/or Wheezing Aspirin 81 mg 05/06/19 09:00 05/06/19 08:08 Ecotrin PO 81 mg DAILY FERNANDO Administration Calcium Acetate 2,001 mg 05/05/19 12:00 05/06/19 11:55 Phoslo PO Not Given TID-WM FERNANDO Epoetin Billy-epbx 7,500 unit 05/04/19 12:00 05/04/19 17:19 Retacrit SC 7,500 unit Q7D FERNANDO Administration Escitalopram Oxalate 20 mg 05/06/19 09:00 05/06/19 08:09 Lexapro PO 20 mg DAILY FERNANDO Administration Fluticasone Propionate 0 gm 05/06/19 09:00 05/06/19 08:09 Flonase Nasal [place] NASAL 1 spr DAILY FERNANDO Administration Heparin Sodium (Porcine) 5,000 units 05/04/19 15:00 05/06/19 13:43 Heparin SC 5,000 units TID FERNANDO Administration Midodrine 5 mg 05/06/19 09:00 05/06/19 08:08 Proamatine PO 5 mg DAILY FERNANDO Administration Ondansetron HCl 4 mg 05/04/19 12:02 05/06/19 13:43 Zofran Odt PO 4 mg Q6H PRN Administration Nausea/Vomiting Ondansetron HCl 4 mg 05/04/19 12:02 05/05/19 21:15 Zofran IVP 4 mg Q6H PRN Administration Nausea/Vomiting Pantoprazole Sodium 40 mg 05/05/19 21:00 05/06/19 08:08 Protonix PO 40 mg BID FERNANDO Administration Pravastatin Sodium 10 mg 05/05/19 21:00 05/05/19 21:15 Pravachol PO 10 mg HS FERNANDO Administration Raloxifene HCl 60 mg 05/06/19 09:00 05/06/19 08:10 Evista PO 60 mg DAILY FERNANDO Administration Saccharomyces Boulardii 250 mg 05/06/19 09:00 05/06/19 08:08 Florastor PO 250 mg DAILY FERNANDO Administration Vitamin B Complex/Vit C/Folic Acid 1 tab 05/06/19 09:00 05/06/19 08:08 Nephro-Mimi Tablet PO 1 tab DAILY FERNANDO Administration - Exam Eye: PERRL Heart: RRR, no gallops, no rubs, normal peripheral pulses, murmur present, III/ IV Respiratory: CTAB, no wheezes, no rales, normal chest expansion Gastrointestinal: soft, non-tender, non-distended, normal bowel sounds, no palpable masses, no hepatomegaly Extremities: 1+ LE edema Hosp A/P (1) Sepsis Code(s): A41.9 - SEPSIS, UNSPECIFIED ORGANISM Status: Acute Qualifiers: Sepsis type: methicillin resistant Staphylococcus aureus Qualified Code(s) : A41.02 - Sepsis due to Methicillin resistant Staphylococcus aureus (2) ESRD (end stage renal disease) on dialysis Code(s): N18.6 - END STAGE RENAL DISEASE; Z99.2 - DEPENDENCE ON RENAL DIALYSIS Status: Acute (3) CAD (coronary artery disease) Code(s): I25.10 - ATHSCL HEART DISEASE OF [place] CORONARY ARTERY W/O ANG PCTRS Status: Acute (4) Hypertension Code(s): I10 - ESSENTIAL (PRIMARY) HYPERTENSION Status: Chronic Qualifiers: (5) Orthostatic hypotension Code(s): I95.1 - ORTHOSTATIC HYPOTENSION Status: Chronic (6) Atrial fibrillation with RVR Code(s): I48.91 - UNSPECIFIED ATRIAL FIBRILLATION Status: Acute (7) Pulmonary mass Code(s): R91.8 - OTHER NONSPECIFIC ABNORMAL FINDING OF LUNG FIELD Status: Acute (8) Complex cyst of left ovary Code(s): N83.292 - OTHER OVARIAN CYST, LEFT SIDE Status: Acute - Plan * Sepsis- from presumed pneumonia-will change her antibiotic to Cipro and Flagyl to cover both the pneumonia and UTI * AFIB -heart rate is better * She is not on anticoagulation due to high risk of bleed * Pulmonary nodule discussed with Dr. Parsons- out patient PET scan in about 4 weeks * Orthostatic hypotension- continue Midodrine as needed * CAD- stable * ESRD- continue as per Nephrology * Echo- discussed with Dr. Mccoy * Ovarian cyst/ mass- this will be evaluated as an out patient * Likely home tomorrow
[2019-05-06] MEDS: metroNIDAZOLE 250 MG TAB PO SCH (21:05)
[2019-05-06] MEDS: Pravastatin Sodium 20 MG TAB PO SCH (21:05)
[2019-05-07 09:08] LABS: Vancomycin, Random 9.5 ug/mL (See Comment)
[2019-05-07] MEDS: Calcium Acetate 667 MG CAP PO SCH ×3 (09:24→17:50)
[2019-05-07] MEDS: Saccharomyces boulardii 250 MG CAP PO SCH (09:24)
[2019-05-07] MEDS: Folic Acid/Vit B Comp W-C PO SCH (09:24)
[2019-05-07] MEDS: Heparin 5,000 UNITS/ML VIAL SC SCH ×3 (09:24→21:21)
[2019-05-07] MEDS: Ondansetron PF 4 MG/2 ML Vial IVP PRN (09:24)
[2019-05-07] MEDS: Cinacalcet HCl 30 MG TAB PO SCH (09:24)
[2019-05-07] MEDS: Fluticasone Propionate Nasal Spray 16 gm Bottle NASAL SCH (09:24)
[2019-05-07] MEDS: Aspirin 81 mg Enteric Coated Tablet PO SCH (09:24)
[2019-05-07] MEDS: metroNIDAZOLE 250 MG TAB PO SCH ×3 (09:25→21:21)
[2019-05-07] MEDS: Escitalopram Oxalate 20 mg Tablet PO SCH (09:25)
[2019-05-07] MEDS: Midodrine HCl 5 MG TAB PO SCH (09:25)
[2019-05-07] MEDS ORDERED: Heparin 10,000 UNITS/ 10 ML VIAL ONE (13:39)
--- NOTE | 2019-05-07 13:50 | PRG ---
DATE OF SERVICE: 05/07/2019 PRIMARY LANGUAGE ASST: Dr. Osito Eubanks. SUBJECTIVE: Ms. Rodriguez continues to be nauseated. She said she has cramps in her legs during dialysis. OBJECTIVE: VITAL SIGNS: Blood pressure 104/56. Pulse in the 90s, it is irregular. LUNGS: Clear. CARDIAC: Irregularly irregular with murmurs before. ASSESSMENT: 1. Previous aortic valve replacement. 2. Atrial fibrillation, persistent. 3. End-stage renal disease. 4. Being treated with antibiotics. PLAN: 1. Continue current medical regimen. 2. Cannot be anticoagulated due to history of gastrointestinal bleed. She is on low-dose heparin. No other recommendations at this time. Dr. Eubanks will be back Friday. Dr. Sandoval is available this weekend if needed. Job ID: [id number]
[2019-05-07] MEDS: Acetaminophen 325 MG TAB PO PRN (14:25)
[2019-05-07] MEDS: Ondansetron ODT 4 MG TAB PO PRN (14:25)
--- NOTE | 2019-05-07 15:32 | PDOC.HOSPP ---
- Subjective Encounter Date: 05/07/19 Encounter Time: 15:30 Subjective: Ms. Rodriguez was seen today in follow-up of pneumonia and generalized weakness. She says she does not feel well today. She says she has a headache, and feels nauseated. She is crying and says she doesn't feel ready to go home yet. She feels too weak. - Objective Vital Signs & Weight: Vital Signs (12 hours) Temp Pulse Resp BP Pulse Ox 05/07/19 15:07 96 16 93 L 05/07/19 08:00 92 L 05/07/19 07:07 97.6 F 94 17 104/56 L 91 L 05/07/19 04:00 98.1 F 98 18 112/61 91 L Weight Admit Weight 136 lb 14.513 oz Weight 138 lb 10.732 oz Most Recent Monitor Data Heart Rate from ECG 101 NIBP 109/68 NIBP BP-Mean 69 Respiration from ECG 25 SpO2 98 Result Diagrams: 05/06/19 08:41 05/06/19 08:41 Hospitalist ROS - Medication Medications: Active Medications Generic Name Dose Route Start Last Admin Trade Name Freq PRN Reason Stop Dose Admin Acetaminophen 650 mg 05/04/19 12:02 05/07/19 14:25 Tylenol PO 650 mg Q4H PRN Administration Headache/Fever/Mild Pain (1-3) Hydrocodone Bitart/Acetaminophen 1 tab 05/05/19 09:11 05/06/19 04:52 [place] 10/325 PO 1 tab BID PRN Administration Pain Albuterol/Ipratropium 3 ml 05/04/19 06:30 05/07/19 15:07 Duoneb NEB 3 ml [id number] FERNANDO Administration Albuterol/Ipratropium 3 ml 05/04/19 04:51 05/05/19 04:19 Duoneb NEB 3 ml [id number] PRN Administration SOB &/or Wheezing Aspirin 81 mg 05/06/19 09:00 05/07/19 09:24 Ecotrin PO 81 mg DAILY FERNANDO Administration Calcium Acetate 2,001 mg 05/05/19 12:00 05/07/19 12:25 Phoslo PO 2,001 mg TID-WM FERNANDO Administration Cinacalcet 30 mg 05/07/19 09:00 05/07/19 09:24 Sensipar PO 30 mg MWF FERNANDO Administration Epoetin Billy-epbx 7,500 unit 05/04/19 12:00 05/04/19 17:19 Retacrit SC 7,500 unit Q7D FERNANDO Administration Escitalopram Oxalate 20 mg 05/06/19 09:00 05/07/19 09:25 Lexapro PO 20 mg DAILY FERNANDO Administration Fluticasone Propionate 0 gm 05/06/19 09:00 05/07/19 09:24 Flonase Nasal [place] NASAL 2 spr DAILY [facility] Administration Heparin Sodium (Porcine) 5,000 units 05/04/19 15:00 05/07/19 14:25 Heparin SC 5,000 units TID [facility] Administration Vancomycin HCl 750 mg/ Sodium 250 mls @ 250 mls/hr 05/04/19 12:45 05/07/19 10 :42 Chloride IVPB 250 mls WILLCALL [facility] Administration Levofloxacin 250 mg 05/07/19 06:00 05/07/19 05:00 Levaquin PO 250 mg 0600 FERNANDO Administration Metronidazole 250 mg 05/06/19 21:00 05/07/19 14:25 Flagyl PO 250 mg TID [facility] Administration Midodrine 5 mg 05/06/19 09:00 05/07/19 09:25 Proamatine PO 5 mg DAILY [facility] Administration Ondansetron HCl 4 mg 05/04/19 12:02 05/07/19 14:25 Zofran Odt PO 4 mg Q6H PRN Administration Nausea/Vomiting Ondansetron HCl 4 mg 05/04/19 12:02 05/07/19 09:24 Zofran IVP 4 mg Q6H PRN Administration Nausea/Vomiting Pantoprazole Sodium 40 mg 05/05/19 21:00 05/07/19 09:25 Protonix PO 40 mg BID [facility] Administration Pravastatin Sodium 10 mg 05/05/19 21:00 05/06/19 21:05 Pravachol PO 10 mg HS [facility] Administration Raloxifene HCl 60 mg 05/06/19 09:00 05/07/19 09:23 Evista PO 60 mg DAILY [facility] Administration Saccharomyces Boulardii 250 mg 05/06/19 09:00 05/07/19 09:24 Florastor PO 250 mg DAILY [facility] Administration Vitamin B Complex/Vit C/Folic Acid 1 tab 05/06/19 09:00 05/07/19 09:24 Nephro-Mimi Tablet PO 1 tab DAILY FERNANDO Administration - Exam Eye: PERRL Heart: RRR, no murmur, no gallops, no rubs, normal peripheral pulses Respiratory: rhonchi, wheezes (+ scattered rhonchi and wheezing) Gastrointestinal: soft, non-tender, non-distended, normal bowel sounds, no palpable masses, no hepatomegaly Extremities: 2+ LE edema (+ edema in both lower extremities and the right upper extremity) Hosp A/P (1) Sepsis Code(s): A41.9 - SEPSIS, UNSPECIFIED ORGANISM Status: Acute Qualifiers: Sepsis type: methicillin resistant Staphylococcus aureus Qualified Code(s) : A41.02 - Sepsis due to Methicillin resistant Staphylococcus aureus (2) ESRD (end stage renal disease) on dialysis Code(s): N18.6 - END STAGE RENAL DISEASE; Z99.2 - DEPENDENCE ON RENAL DIALYSIS Status: Acute (3) CAD (coronary artery disease) Code(s): I25.10 - ATHSCL HEART DISEASE OF [place] CORONARY ARTERY W/O ANG PCTRS Status: Acute (4) Hypertension Code(s): I10 - ESSENTIAL (PRIMARY) HYPERTENSION Status: Chronic Qualifiers: (5) Orthostatic hypotension Code(s): I95.1 - ORTHOSTATIC HYPOTENSION Status: Chronic (6) Atrial fibrillation with RVR Code(s): I48.91 - UNSPECIFIED ATRIAL FIBRILLATION Status: Acute (7) Pulmonary mass Code(s): R91.8 - OTHER NONSPECIFIC ABNORMAL FINDING OF LUNG FIELD Status: Acute (8) Complex cyst of left ovary Code(s): N83.292 - OTHER OVARIAN CYST, LEFT SIDE Status: Acute - Plan * Sepsis- from presumed pneumonia-continue Cipro and flagyl * AFIB -heart rate is better * She is not on anticoagulation due to high risk of bleed * Pulmonary nodule discussed- out patient PET scan in about 4 weeks * Orthostatic hypotension- continue Midodrine as needed * Nausea and headache- these are intermittent and chronic ( occurring well before her hospital admission) and likely due to her chronic underlying conditions. If the nausea worsens then would consider GI evaluation. * CAD- stable * ESRD- continue as per Nephrology * Echo- discussed with Dr. Mccoy * Ovarian cyst/ mass- this will be evaluated as an out patient- she has been recommended to go to a [facility] Oncologist in either [place] or [facility] * Will hold discharge and have PT to re-assess. She lives at home alone, she does not walk, but is usually able to transfer to her motorized wheelchair, and can perform activities of daily living. I spoke with her sister over the phone who verifies that she has been liveing well independently. The plan is to return home. She may need some home PT, if she continues to fell weak.
[2019-05-07] MEDS: Pravastatin Sodium 20 MG TAB PO SCH (21:20)
[2019-05-08] MEDS: Midodrine HCl 5 MG TAB PO SCH (09:35)
[2019-05-08] MEDS: Escitalopram Oxalate 20 mg Tablet PO SCH (09:35)
[2019-05-08] MEDS: Fluticasone Propionate Nasal Spray 16 gm Bottle NASAL SCH (09:35)
[2019-05-08] MEDS: Aspirin 81 mg Enteric Coated Tablet PO SCH (09:35)
[2019-05-08] MEDS: Calcium Acetate 667 MG CAP PO SCH ×3 (09:35→16:01)
[2019-05-08] MEDS: Folic Acid/Vit B Comp W-C PO SCH (09:35)
[2019-05-08] MEDS: Heparin 5,000 UNITS/ML VIAL SC SCH ×3 (09:35→20:28)
[2019-05-08] MEDS: Ondansetron ODT 4 MG TAB PO PRN (09:36)
[2019-05-08] MEDS: Saccharomyces boulardii 250 MG CAP PO SCH (09:36)
[2019-05-08] MEDS: metroNIDAZOLE 250 MG TAB PO SCH ×3 (09:36→20:27)
--- NOTE | 2019-05-08 12:23 | EKG ---
Test Reason : TACHYCARDIA Blood Pressure : / mmHG Vent. Rate : 130 BPM Atrial Rate : 138 BPM P-R Int : 000 ms QRS Dur : 076 ms QT Int : 320 ms P-R-T Axes : 000 004 063 degrees QTc Int : 470 ms Accelerated Junctional rhythm Cannot rule out Inferior infarct , age undetermined Anteroseptal infarct , age undetermined Abnormal ECG Confirmed by TATIANA LAURENT ([id number]), editor in chief DORIAN GALEAS ([id number]) on 05/08/2019 12:22:55 PM Referred By: CLINTON Confirmed By:TATIANA Hopkins
--- NOTE | 2019-05-08 12:32 | PDOC.HOSPP ---
- Subjective Encounter Date: 05/08/19 Encounter Time: 08:00 Subjective: cough is better, no chest pain or palp per staff she is transferring to wheel chair with PT - Objective Vital Signs & Weight: Vital Signs (12 hours) Temp Pulse Resp BP BP Pulse Ox 05/08/19 10:13 91 16 96 05/08/19 08:00 92 L 05/08/19 07:52 97.6 F 94 16 109/62 92 L 05/08/19 06:58 98 05/08/19 06:57 88 16 95 05/08/19 04:00 97.9 F 106 H 20 124/57 L 94 L 05/08/19 02:08 87 12 91 L Weight Admit Weight 136 lb 14.513 oz Weight 138 lb 10.732 oz Most Recent Monitor Data Heart Rate from ECG 101 NIBP 109/68 NIBP BP-Mean 69 Respiration from ECG 25 SpO2 98 I&O: 05/07/19 05/08/19 05/09/19 06:59 06:59 06:59 Intake Total 240 Output Total 50 Balance 190 Result Diagrams: 05/06/19 08:41 05/06/19 08:41 Hospitalist ROS - Medication Medications: Active Medications Generic Name Dose Route Start Last Admin Trade Name Freq PRN Reason Stop Dose Admin Acetaminophen 650 mg 05/04/19 12:02 05/07/19 14:25 Tylenol PO 650 mg Q4H PRN Administration Headache/Fever/Mild Pain (1-3) Hydrocodone Bitart/Acetaminophen 1 tab 05/05/19 09:11 05/06/19 04:52 [place] 10/325 PO 1 tab BID PRN Administration Pain Albuterol/Ipratropium 3 ml 05/04/19 06:30 05/08/19 10:13 Duoneb NEB 3 ml [id number] FERNANDO Administration Albuterol/Ipratropium 3 ml 05/04/19 04:51 05/05/19 04:19 Duoneb NEB 3 ml [id number] PRN Administration SOB &/or Wheezing Aspirin 81 mg 05/06/19 09:00 05/08/19 09:35 Ecotrin PO 81 mg DAILY FERNANDO Administration Calcium Acetate 2,001 mg 05/05/19 12:00 05/08/19 09:35 Phoslo PO 2,001 mg TID-WM FERNANDO Administration Cinacalcet 30 mg 05/07/19 09:00 05/07/19 09:24 Sensipar PO 30 mg MWF FERNANDO Administration Epoetin Billy-epbx 7,500 unit 05/04/19 12:00 05/04/19 17:19 Retacrit SC 7,500 unit Q7D FERNANDO Administration Escitalopram Oxalate 20 mg 05/06/19 09:00 05/08/19 09:35 Lexapro PO 20 mg DAILY FERNANDO Administration Fluticasone Propionate 0 gm 05/06/19 09:00 05/08/19 09:35 Flonase Nasal [place] NASAL 2 spr DAILY FERNANDO Administration Heparin Sodium (Porcine) 5,000 units 05/04/19 15:00 05/08/19 09:35 Heparin SC 5,000 units TID FERNANDO Administration Vancomycin HCl 750 mg/ Sodium 250 mls @ 250 mls/hr 05/04/19 12:45 05/07/19 10 :42 Chloride IVPB 250 mls WILLCALL FERNANDO Administration Levofloxacin 250 mg 05/07/19 06:00 05/08/19 05:40 Levaquin PO 250 mg 0600 FERNANDO Administration Loratadine 10 mg 05/05/19 09:09 05/07/19 21:20 Claritin PO 10 mg DAILYPRN PRN Administration Allergies Metronidazole 250 mg 05/06/19 21:00 05/08/19 09:36 Flagyl PO 250 mg TID FERNANDO Administration Midodrine 5 mg 05/06/19 09:00 05/08/19 09:35 Proamatine PO 5 mg DAILY FERNANDO Administration Ondansetron HCl 4 mg 05/04/19 12:02 05/08/19 09:36 Zofran Odt PO 4 mg Q6H PRN Administration Nausea/Vomiting Ondansetron HCl 4 mg 05/04/19 12:02 05/07/19 09:24 Zofran IVP 4 mg Q6H PRN Administration Nausea/Vomiting Pantoprazole Sodium 40 mg 05/05/19 21:00 05/08/19 09:34 Protonix PO 40 mg BID FERNANDO Administration Temazepam 7.5 Mg Cap 1 each 05/06/19 22:12 05/07/19 21:20 PO 1 each HS PRN Administration Insomnia Pravastatin Sodium 10 mg 05/05/19 21:00 05/07/19 21:20 Pravachol PO 10 mg HS FERNANDO Administration Raloxifene HCl 60 mg 05/06/19 09:00 05/08/19 09:36 Evista PO 60 mg DAILY FERNANDO Administration Saccharomyces Boulardii 250 mg 05/06/19 09:00 05/08/19 09:36 Florastor PO 250 mg DAILY FERNANDO Administration Vitamin B Complex/Vit C/Folic Acid 1 tab 05/06/19 09:00 05/08/19 09:35 Nephro-Mimi Tablet PO 1 tab DAILY FERNANDO Administration - Exam General Appearance: awake alert Eye: PERRL, anicteric sclera ENT: no oropharyngeal lesions, dry oral mucosa Neck: supple, no JVD Heart: RRR, no murmur Respiratory: no wheezes, no rales, rhonchi Gastrointestinal: soft, non-tender, non-distended, normal bowel sounds Extremities: no cyanosis, no edema Neurological: cranial nerve grossly intact, no focal deficits Psychiatric: A&O x 3 Hosp A/P (1) CAP (community acquired pneumonia) Code(s): J18.9 - PNEUMONIA, UNSPECIFIED ORGANISM Status: Acute Qualifiers: Laterality: left Lung location: lower lobe of lung Qualified Code(s): J18.9 - Pneumonia, unspecified organism (2) Sepsis Code(s): A41.9 - SEPSIS, UNSPECIFIED ORGANISM Status: Resolved Qualifiers: Sepsis type: methicillin resistant Staphylococcus aureus Qualified Code(s) : A41.02 - Sepsis due to Methicillin resistant Staphylococcus aureus (3) Afib Code(s): I48.91 - UNSPECIFIED ATRIAL FIBRILLATION Status: Chronic Qualifiers: Atrial fibrillation type: paroxysmal Qualified Code(s): I48.0 - Paroxysmal atrial fibrillation (4) Complex cyst of left ovary Code(s): N83.292 - OTHER OVARIAN CYST, LEFT SIDE Status: Acute (5) Pulmonary mass Code(s): R91.8 - OTHER NONSPECIFIC ABNORMAL FINDING OF LUNG FIELD Status: Suspected (6) CAD (coronary artery disease) Code(s): I25.10 - ATHSCL HEART DISEASE OF [place] CORONARY ARTERY W/O ANG PCTRS Status: Chronic Qualifiers: Coronary Disease-Associated Artery/Lesion type: bypass graft [place] vs. transplanted heart: [place] heart Associated angina: without angina Qualified Code(s): I25.810 - Atherosclerosis of coronary artery bypass graft(s) without angina pectoris (7) ESRD (end stage renal disease) on dialysis Code(s): N18.6 - END STAGE RENAL DISEASE; Z99.2 - DEPENDENCE ON RENAL DIALYSIS Status: Chronic (8) Anemia in chronic kidney disease Code(s): N18.9 - CHRONIC KIDNEY DISEASE, UNSPECIFIED; D63.1 - ANEMIA IN CHRONIC KIDNEY DISEASE Status: Chronic Qualifiers: (9) Anxiety and depression Code(s): F41.9 - ANXIETY DISORDER, UNSPECIFIED; F32.9 - MAJOR DEPRESSIVE DISORDER, SINGLE EPISODE, UNSPECIFIED Status: Chronic (10) History of mastectomy Code(s): Z90.10 - ACQUIRED ABSENCE OF UNSPECIFIED BREAST AND NIPPLE Status: Chronic Qualifiers: Laterality: right Qualified Code(s): Z90.11 - Acquired absence of right breast and nipple (11) Hypertension Code(s): I10 - ESSENTIAL (PRIMARY) HYPERTENSION Status: Chronic Qualifiers: (12) UTI (urinary tract infection) Status: Acute Qualifiers: Urinary tract infection type: acute cystitis Hematuria presence: without hematuria Qualified Code(s): N30.00 - Acute cystitis without hematuria - Plan is on vanc with HD, cipro and flagyl for suspected aspiration or cap lung mass for outpt PET in 4 weeks left complex ovarian cyst for outpt appointment to see Oncologic Obgyn in tertiary center continue asp, mdidodrine, pravachol, protonix, evista dc plan in am will need HH with PT and nursing on discharge
[2019-05-08] MEDS: HYDROcodone/Acetaminophen 10/325 mg Tablet PO PRN (16:00)
[2019-05-08] MEDS: Pravastatin Sodium 20 MG TAB PO SCH (20:27)
[2019-05-09 08:02] VITALS: BP 105/58; TEMP 97.5
[2019-05-09] MEDS: Cinacalcet HCl 30 MG TAB PO SCH (08:38)
[2019-05-09] MEDS: Saccharomyces boulardii 250 MG CAP PO SCH (08:39)
[2019-05-09] MEDS: Escitalopram Oxalate 20 mg Tablet PO SCH (08:39)
[2019-05-09] MEDS: Calcium Acetate 667 MG CAP PO SCH ×2 (08:39→12:04)
[2019-05-09] MEDS: Fluticasone Propionate Nasal Spray 16 gm Bottle NASAL SCH (08:39)
[2019-05-09] MEDS: Aspirin 81 mg Enteric Coated Tablet PO SCH (08:39)
[2019-05-09] MEDS: Folic Acid/Vit B Comp W-C PO SCH (08:39)
[2019-05-09] MEDS: Midodrine HCl 5 MG TAB PO SCH (08:39)
[2019-05-09] MEDS: Heparin 5,000 UNITS/ML VIAL SC SCH (08:40)
[2019-05-09] MEDS: metroNIDAZOLE 250 MG TAB PO SCH (08:40)
--- NOTE | 2019-05-09 11:09 | PRG ---
DATE OF SERVICE: 05/09/2019 SUBJECTIVE: Ms. Rodriguez is a 68-year-old white female, followed up by the Renal Service for her ESRD-she is tolerating current hemodialysis regimen. No changes to be made. I did examine the patient. I feel that the patient looks stable and there is no indication for any emergent dialysis today. Her cough is also improved. She was initially felt to have some degree of CHF and underwent emergent hemodialysis. In addition, the patient has had workup for her complex ovarian cyst. She was seen by one of the gynecologists and subsequent referrals being made to one outside slot machine key person, which also included MD Solomon. The patient voices no new complaints. Her appetite is fair. OBJECTIVE: VITAL SIGNS: Blood pressure 105/58, heart rate 93, respiratory rate 18, and temperature 97.5. GENERAL: Awake, alert, comfortable, not in distress. SKIN: Adequate turgor. HEENT: She has pinkish conjunctivae. Anicteric sclerae. NECK: No neck mass. No carotid bruits. No JVD. CHEST: No deformities. LUNGS: Clear breath sounds. HEART: Normal sinus rhythm. No murmurs, gallops, or rubs. ABDOMEN: Globular, soft, and nontender. No masses. EXTREMITIES: No edema. No deformities. Decreased motor of the lower extremities. MEDICATIONS: Medications of May 09, 2019, reviewed. LABORATORY DATA: On May 06, 2019; white count 6 and hemoglobin 10.4. Sodium 136, potassium 3.7, chloride 95, carbon dioxide 26, BUN 26, and creatinine 4.28. Carcinoembryonic antigen 5.09. CA-125 of 46. CA 19-9 of 10. ASSESSMENT AND PLAN: 1. Complex ovarian cyst-the patient will have further workup and follow up with an outside slot machine key person. MD Solomon is being considered. 2. End-stage renal disease, stable. We will continue Friday, Friday, and Friday hemodialysis regimen. As previously mentioned, no indication for any emergent dialysis. 3. Anemia. Continuing weekly Epogen-p.r.n. blood transfusion. Continue supportive care. Job ID: [id number]
--- NOTE | 2019-05-09 13:53 | DIS ---
DATE OF ADMISSION: 05/04/2019 DATE OF DISCHARGE: 05/09/2019 DISCHARGE DISPOSITION: Home. PRIMARY DISCHARGE DIAGNOSES: Pneumonia; generalized weakness; sepsis; urinary tract infection with Escherichia coli; suspected lung mass; left complex ovarian cyst measuring 4 x 6 x 6 cm for further evaluation at [facility] in the outpatient setting; history of right breast cancer in the year 1999; chronic atrial fibrillation; chronic anemia; end-stage renal disease, on hemodialysis on Friday, Friday, Fridays; history of orthostatic hypotension on midodrine; coronary artery disease with prior coronary artery bypass grafting for two vessel disease. PROCEDURES DONE DURING HOSPITALIZATION: Urine culture grew E coli sensitive to quinolones, meropenem, and Macrobid. Blood cultures x2, no growth. H and H 10 and 32, platelet count 200, MCV is 97. Discharge BUN and creatinine 26 and 4.2. Carcinoembryonic antigen levels were 5.09 which is elevated. CA 19-9 antigen is 10. CA-125 was 46, which is elevated, units per mL. BNP 981. Albumin was 3.8. CRP 18.7. ALLERGIES: TO ATORVASTATIN, CEFUROXIME, MEPERIDINE, AND NITROFURANTOIN. INPATIENT CONSULT: Dr. Rucker for Nephrology, Dr. Parsons for Pulmonology, Dr. Galilea Burrell for [facility]. DISCHARGE PLAN: The patient to follow up with her primary care physician, Dr. Rachel Hernandez in 1 week. She needs to see Dr. Parsons in 2 to 3 weeks. The patient is planning to have outpatient appointment at [facility] to check for both her lung nodule and the left complex ovarian cyst. BRIEF COURSE DURING HOSPITALIZATION: The patient initially got admitted on the with complaints of nausea, and vomiting. She also was found to have had UTI along with findings of pneumonia and suspected lung mass. The patient had CT of the abdomen and pelvis done on the day of admission, which showed incidental finding of left complex adnexal mass measuring 4 x 6 x 6 cm. She has had consultation from Dr. Parsons for Pulmonology, Dr. Galilea Burrell for [facility]. The current plan is to complete her antibiotics for pneumonia. She needs to have outpatient appointment to see [facility] oncologist in the next 2 weeks for further workup of the left complex cyst in the adnexa. She also needs to follow up with either Dr. Parsons in 2 to 3 weeks or follow up at [facility] where she is planning to go to see an FILM [facility] oncologist and have the photostat operator look at her in 2 to 3 weeks to see if there is any resolution of the mass in the lungs. She is otherwise hemodynamically stable. The patient has poor functional status and she is usually wheelchair bound. She is currently hemodynamically stable and is wanting to go home. We will arrange home health with PT prior to discharge. She is eating well and she is hemodynamically stable as well. Please note, I have seen and examined the patient on the day of discharge. Job ID: [id number]
== END 2019-05-09 13:05 | disposition home health service (06) | DRG 871 ==
LOC: ERS 18:06 → ERHOLD 05-04 02:00 → IMCU/EMU 05-04 02:30 → T4-B 05-05 17:55
PROVIDERS: ADMIT Internal Medicine; ATTEND Internal Medicine
PROC: 5A1D70Z Performance of Urinary Filtration, Intermittent, Less than 6 Hours Per Day (ICD-10-PCS; principal; 2019-05-04)
DX: A41.9 Sepsis, unspecified organism (principal); N18.6 End stage renal disease; J18.9 Pneumonia, unspecified organism; N39.0 Urinary tract infection, site not specified; I13.2 Hypertensive heart and chronic kidney disease with heart failure and with stage 5 chronic kidney disease, or end stage renal disease; R11.2 Nausea with vomiting, unspecified; N83.299 Other ovarian cyst, unspecified side; D63.1 Anemia in chronic kidney disease; K21.9 Gastro-esophageal reflux disease without esophagitis; E78.5 Hyperlipidemia, unspecified; I25.10 Atherosclerotic heart disease of native coronary artery without angina pectoris; M19.90 Unspecified osteoarthritis, unspecified site; C67.9 Malignant neoplasm of bladder, unspecified; F32.9 Major depressive disorder, single episode, unspecified; Z95.2 Presence of prosthetic heart valve; Z95.820 Peripheral vascular angioplasty status with implants and grafts; Z95.1 Presence of aortocoronary bypass graft; I48.91 Unspecified atrial fibrillation; R91.8 Other nonspecific abnormal finding of lung field
CPT/HCPCS: 36415; 71045; 71275; 74176; 76705; 76856; 80048; 80053; 80202; 81003; 81015; 82378; 82553; 83605; 83880; 84484; 85025; 86140; 86301; 86304; 87040; 87077; 87086; 87186; 87340; 90935; 93005; 93010; 93306; 93798; 94640; 96361; 96365; 96367; 96375; 96376; G0257; J1160; J1644; J2405; J2543; J3370; J3490; J7050; J7620; Q0162; Q5105; Q9967; S0028